=== PATIENT | female | born 1980 | race Caucasian/White ===

== ENCOUNTER 2022-10-21 14:54 | Outpatient (OUT) | payer OTHER, SELFPAY ==
--- NOTE | 2022-10-21 15:06 | XR_ITS ---
The [address] [address] Patient Name: TAMY BARCLAY MRN: [id number] date: 1980 Sex: F Assigned Patient Location: LAB Current Patient Location: Accession/Order Number: [id number] Exam Date: 10/21/2022 15:08 Report Date: 10/22/2022 04:19 At the request of: FRANCIA RODRIGUEZ Procedure: XR abdomen 1V EXAMINATION: XR abdomen 1V HISTORY: Kidney stones N20.0 COMPARISON: XR abdomen with PA chest 03/24/2022 FINDINGS: KIDNEY/URETER - RIGHT: No visible renal or ureteral calcifications. KIDNEY/URETER - LEFT: No visible renal or ureteral calcifications. PELVIS: Stable left pelvic calcifications consistent with phleboliths. BOWEL: No abnormal dilation or deviation. BONES: No acute abnormality. OTHER: Negative. No abnormal gaseous collections. XR/XR abdomen 1V IMPRESSION: 1. No appreciable urinary tract calculi. Electronically authenticated by: ABEL COLES Date: 10/22/2022 04:19
[2022-10-21 15:44] LABS: Bilirubin Urine NEGATIVE (NEGATIVE); Blood Urine NEGATIVE (NEGATIVE); Clarity Urine CLEAR (CLEAR); Color Urine YELLOW (YELLOW); Glucose Urine UA NEGATIVE (NEGATIVE); Ketones Urine NEGATIVE (NEGATIVE); Leukocyte Esterase Urine NEGATIVE (NEGATIVE); Nitrite Urine NEGATIVE (NEGATIVE); Protein Urine NEGATIVE (NEG/TRACE); Specific Gravity Urine 1.025 (1.005-1.025); Urobilinogen Urine 0.2 EU/dL (0.2-1.0); pH Urine 5.5 (5.0-9.0)
== END 2022-10-21 14:55 | disposition home or self-care (01) ==
LOC: LAB 14:58
PROVIDERS: PCP Family Medicine; Visit Provider Family Medicine
DX: N30.00 Acute cystitis without hematuria (principal); N20.0 Calculus of kidney
CPT/HCPCS: 74018; 81003; 87086

== ENCOUNTER 2023-02-13 14:39 | Outpatient (OUT) | payer OTHER, SELFPAY ==
--- NOTE | 2023-02-13 14:43 | US_ITS ---
The [place] [id number] Patient Name: TAMY BARCLAY MRN: [id number] date: 1980 Sex: F Assigned Patient Location: [facility] Current Patient Location: Accession/Order Number: [id number] Exam Date: 02/13/2023 15:15 Report Date: 02/15/2023 11:22 At the request of: FRANCIA RODRIGUEZ Procedure: US venous doppler LE RT EXAMINATION: US venous doppler LE RT HISTORY: Phlebitis I80.9 COMPARISON: No relevant comparison available. FINDINGS: REGION: Right lower extremity THROMBI: None. COMPRESSIBILITY: Normal compressibility. FLOW: Normal waveform and antegrade flow between 5 and 20 cm/s. OTHER: None. US/US venous doppler LE RT IMPRESSION: 1. No deep vein thrombus within the right lower extremity. Electronically authenticated by: ABEL COLES Date: 02/15/2023 11:22
== END 2023-02-13 14:40 | disposition home or self-care (01) ==
LOC: RAD 14:39
PROVIDERS: PCP Family Medicine; Visit Provider Family Medicine
DX: I80.9 Phlebitis and thrombophlebitis of unspecified site (principal)
CPT/HCPCS: 93971

== ENCOUNTER 2023-09-04 09:54 | Outpatient (OUT) | payer OTHER, SELFPAY ==
--- OUTSIDE RECORDS SUMMARY | 2023-09-04 10:12 | XMS_ITS | CCD ---
Author Organization [facility] Care Team Providers Care Television Installer Helper Name Role Phone STEPANIC, ARIES C Unavailable Unavailable STEPANIC, ARIES C Unavailable Unavailable HOY, FRANCIA Unavailable Unavailable Bunny Briggs Unavailable Unavailable STEPANIC, ARIES C Unavailable Unavailable STEPANIC, ARIES C Unavailable Unavailable HOY, FRANCIA Unavailable Unavailable HOY ., DR FELDMAN Admitting Unavailable HOY ., DR FELDMAN Attending Unavailable HOY ., DR FELDMAN Primary Care Unavailable HOY ., DR FELDMAN Consulting Unavailable HOY ., DR FELDMAN Admitting Unavailable HOY ., DR FELDMAN Attending Unavailable HOY ., DR FELDMAN Primary Care Unavailable HOY ., DR FELDMAN Consulting Unavailable HOY ., DR FELDMAN Admitting Unavailable HOY ., DR FELDMAN Attending Unavailable HOY ., DR FELDMAN Primary Care Unavailable HOY ., DR FELDMAN Consulting Unavailable RIDGEWAY, DR MAURICIO Fraser Consulting Unavailable Unavailable Primary Care Provider ANNA Crain Attending Unavailable Allergies Allergy Classification Reported Allergen(s) Allergy Type Date of Onset Reaction(s) Facility (1 source) acetaminophen / oxyCODONE; Translations: [Percocet 5/325] Drug Allergy [facility] Repository (2 sources) HYDROmorphone; Translations: [Dilaudid] Drug Allergy [facility]ository (1 source) egg extract Drug Allergy 02-09-2006 [facility] Repository (1 source) HYDROmorphone Drug Allergy 10-27-2022 [facility] Medications Current Medications Medication Drug Class(es) Dates Sig (Normalized) Sig (Original) 24 hr metoprolol succinate 50 mg extended release oral tablet (1 source) beta-Adrenergic Carlos take 1 tablet by mouth once daily metoprolol succinate (TOPROL XL) 50 MG extended release tablet Take 1 tablet by mouth daily 0 Active Rimegepant Sulfate (NURTEC PO) (1 source) Rimegepant Sulfa te (NURTEC PO) Take by mouth 0 Active Completed/Discontinued Medications Medication Drug Class(es) Dates Sig (Normalized) Sig (Original) iopamidol (ISOVUE-370) 76 % injection 75 mL (1 source) Start: 10-27-2022 End: 10-27-2022 iopamidol (ISOVUE-370) 76 % injection 75 mL 1 ml ketorolac tromethamine 15 mg/ml cartridge (1 source) Nonsteroidal Anti-inflammatory Drug, Cyclooxygenase Inhibitor Start: 10-27-2022 End: 10-27-2022 ketorolac (TORADOL) injection 15 mg 2 ml ondansetron 2 mg/ml injection (1 source) Serotonin-3 Receptor Antagonist Start: 10-27-2022 End: 10-27-2022 ondansetron (ZOFRAN) injection 4 mg 50 ml sodium chloride 9 mg/ml injection (1 source) Start: 10-27-2022 End: 10-27-2022 sodium chloride 0.9 % bolus 1,000 mL Problems Active Problems Problem Classification Problem Date Documented Date Episodic/Chronic Cardiac dysrhythmias (4 sources) Palpitations; Translations: [PALPITATIONS] Onset: 04-21-2022 Episodic Headache; including migraine (1 source) Migraine without aura, not intractable, without status migrainosus; Translations: [MIGRAINE W/O AURA NOT INTRCT W/O SE] Onset: 04-28-2022 Chronic Nausea and vomiting (4 sources) Nausea with vomiting, unspecified; Translations: [NAUSEA WITH VOMITING UNSPECIFIED] Onset: 03-24-2022 Episodic Noninfectious gastroenteritis (4 sources) Noninfective gastroenteritis and colitis, unspecified; Translations: [NONINFECTIVE GE AND COLITIS UNS] Onset: 03-19-2022 Episodic Past or Other Problems Problem Classification Problem Date Documented Da te Episodic/Chronic Abdominal pain (3 sources) Unspecified abdominal pain; Translations: [Left flank pain] Onset: 03-28-2022 10-27-2022 Episodic Results Test Name Value Interpretation Reference Range Facility CBC with Diffon 08-05-2023 Abs. Basophil <0.03 Normal 0.00-0.20 [facility] Comment on above: Performed By: #### T , CDP #### [facility] [address] [place], [place] [phone] Tow Car Driver: Mauricio rIby MD #### LIPR, FT3, INSU, T4, FE, GLYHGB #### [address] [phone] Tow Car Driver: Casa Medrano MD Abs.Imm.Granulocy te 0.05 k/uL Normal 0.00-0.30 [facility] Comment on above: Performed By: #### T SH, CDP #### [address] [place] [phone] Tow Car Driver: Mauricio Irby MD #### LIPR, FT3, INSU, T4, FE, GLYHGB #### [place] [address] Tow Car Driver: Casa Medrano MD Abs.Neutrophil (Seg) 7.71 k/uL Normal 1.50-8.10 [facility] Comment on above: Performed By: #### T SH, CDP #### [address] [place] [phone] Tow Car Driver: Mauricio Irby MD #### LIPR, FT3, INSU, T4, FE, GLYHGB #### [place] [phone] Tow Car Driver: Casa Medrano MD Basophils/100 WBC (Bld) 0 % Normal 0-2 [facility] Comment on above: Performed By: #### T SH, CDP #### [address] [place] [phone] Tow Car Driver: Mauricio Irby MD #### LIPR, FT3, INSU, T4, FE, GLYHGB #### [address] [phone] Tow Car Driver: Casa Medrano MD Eosinophils (Bld) [#/Vol] 0.10 10*3/uL Normal 0.00-0.44 [facility] Comment on above: Performed By: #### T SH, CDP #### [address] [place] [address] Tow Car Driver: Mauricio Irby MD #### LIPR, FT3, INSU, T4, FE, GLYHGB #### [address] [phone] Tow Car Driver: Casa Medrano MD Eosinophils/100 WBC (Bld) 1 % Normal 1-4 [facility] Comment on above: Performed By: #### T SH, CDP #### [address] [place] [address] Tow Car Driver: Mauricio Irby MD #### LIPR, FT3, INSU, T4, FE, GLYHGB #### [address] [phone] Tow Car Driver: Casa Medrano MD Erythrocyte distribution width (RBC) [Ratio] 12.5 % Normal 11.8-14.4 [facility] Comment on above: Performed By: #### T SH, CDP #### [address] [place] [address] Tow Car Driver: Mauricio Irby MD #### LIPR, FT3, INSU, T4, FE, GLYHGB #### [address] [phone] Tow Car Driver: Casa Medrano MD Hematocrit (Bld) [Volume fraction] 45.1 % Normal 36.3-47.1 [facility] Comment on above: Performed By: #### T SH, CDP #### [address] [place] [address] Tow Car Driver: Mauricio Irby MD #### LIPR, FT3, INSU, T4, FE, GLYHGB #### [address] [phone] Tow Car Driver: Casa Medrano MD Hemoglobin (Bld) [Mass/Vol] 15.2 g/dL High 11.9-15.1 [facility] Comment on above: Performed By: #### T SH, CDP #### [facility] [address] [place] [address] Dr[place] [phone] Tow Car Driver: Mauricio Irby MD #### LIPR, FT3, INSU, T4, FE, GLYHGB #### [address] [address] Tow Car Driver: Casa Medrano MD Immature granulocytes/100 WBC (Bld) 1 % High 0 [facility] Comment on above: Performed By: #### T SH, CDP #### [address] [place] [phone] Tow Car Driver: Mauricio Irby MD #### LIPR, FT3, INSU, T4, FE, GLYHGB #### [place] [address] Tow Car Driver: Casa Medrano MD Lymphocytes (Bld) [#/Vol] 2.55 10*3/uL Normal 1.10-3.70 [facility] Comment on above: Performed By: #### T SH, CDP #### [facility] [address] [place] [address] Dr. [place] [phone] Tow Car Driver: Mauricio Irby MD #### LIPR, FT3, INSU, T4, FE, GLYHGB #### [address] [phone] Tow Car Driver: Casa Medrano MD Lymphocytes/100 WBC (Bld) 23 % Low 24-43 [facility] Comment on above: Performed By: #### T SH, CDP #### [facility] [address] [place] [address] Dr[place] [phone] Tow Car Driver: Mauricio Irby MD #### LIPR, FT3, INSU, T4, FE, GLYHGB #### [place] [address] [place], [place] [phone] Tow Car Driver: Casa Medrano MD MCH (RBC) [Entitic mass] 31.6 pg Normal 25.2-33.5 [facility] Comment on above: Performed By: #### T SH, CDP #### [address] [place] [phone] Tow Car Driver: Mauricio Irby MD #### LIPR, FT3, INSU, T4, FE, GLYHGB #### [address] [phone] Tow Car Driver: Casa Medrano MD MCHC (RBC) [Mass/Vol] 33.7 g/dL Normal 28.4-34.8 [facility] Comment on above: Performed By: #### T SH, CDP #### [address] [place] [phone] Tow Car Driver: Mauricio Irby MD #### LIPR, FT3, INSU, T4, FE, GLYHGB #### [place] [address] Tow Car Driver: Casa Medrano MD MCV (RBC) [Entitic vol] 93.8 fL Normal 82.6-102.9 [facility] Comment on above: Performed By: #### T SH, CDP #### [address] [place] [phone] Tow Car Driver: Mauricio Irby MD #### LIPR, FT3, INSU, T4, FE, GLYHGB #### [place] [phone] Tow Car Driver: Casa Medrano MD Monocytes (Bld) [#/Vol] 0.60 10*3/uL Normal 0.10-1.20 [facility] Comment on above: Performed By: #### T SH, CDP #### [facility] [address] [place], [place] [phone] Tow Car Driver: Mauricio Irby MD #### LIPR, FT3, INSU, T4, FE, GLYHGB #### [address] [phone] Tow Car Driver: Casa Medrano MD Monocytes/100 WBC (Bld) 5 % Normal 3-12 [facility] Comment on above: Performed By: #### T SH, CDP #### [facility] [address] [place] [address] Tow Car Driver: Mauricio Irby MD #### LIPR, FT3, INSU, T4, FE, GLYHGB #### [address] [phone] Tow Car Driver: Casa Medrano MD Neutrophil (Seg) 70 % High 36-65 [facility] Comment on above: Performed By: #### T SH, CDP #### [facility] [address] [place] [address] [place] [address] Tow Car Driver: Mauricio Irby MD #### LIPR, FT3, INSU, T4, FE, GLYHGB #### [address] [address] Tow Car Driver: Casa Medrano MD NRBC Automated 0.0 per 100 WBC Normal 0.0 [facility] Comment on above: Performed By: #### T SH, CDP #### [facility] [address] [place] [address] Tow Car Driver: Mauricio Irby MD #### LIPR, FT3, INSU, T4, FE, GLYHGB #### [address] [phone] Tow Car Driver: Casa Medrano MD Platelet mean volume (Bld) [Entitic vol] 9.2 fL Normal 8.1-13.5 [facility] Comment on above: Performed By: #### T SH, CDP #### [address] [place], [place] [phone] Tow Car Driver: Mauricio Irby MD #### LIPR, FT3, INSU, T4, FE, GLYHGB #### [place] [address] [place] [address] Tow Car Driver: Casa Medrano MD Platelets (Bld) [#/Vol] 297 10*3/uL Normal 138-453 [facility] Comment on above: Performed By: #### T SH, CDP #### [address] [place], [place] [phone] Tow Car Driver: Mauricio Irby MD #### LIPR, FT3, INSU, T4, FE, GLYHGB #### [address] [address] Tow Car Driver: Casa Medrano MD RBC (Bld) [#/Vol] 4.81 10*6/uL Normal 3.95-5.11 [facility] Comment on above: Performed By: #### T SH, CDP #### [address] [place], [place] [phone] Tow Car Driver: Mauricio Irby MD #### LIPR, FT3, INSU, T4, FE, GLYHGB #### [address] [address] Tow Car Driver: Casa Medrano MD WBC (Bld) [#/Vol] 11.0 10*3/uL Normal 3.5-11.3 [facility] Comment on above: Performed By: #### T SH, CDP #### [address] [place], [place] [phone] Tow Car Driver: Mauricio Irby MD #### LIPR, FT3, INSU, T4, FE, GLYHGB #### [address] [phone] Tow Car Driver: Casa Medrano MD Hemoglobin A1Con 08-05-2023 Glucose [Mass/Vol] 100 mg/dL Normal [facility] Comment on above: Result Comment: The ADA and AACC recommend providing the estimated average glucose result to permit better patient understanding of their HBA1c result. Performed By: #### C JANIE RAMIREZ, CP #### [facility] [address] [place] [address] Dr. [place], [place] [phone] Tow Car Driver: Mauricio Irby MD HbA1c (Bld) [Mass fraction] 5.1 % Normal 4.0-6.0 [facility] Comment on above: Performed By: #### C JANIE RAMIREZ, CP #### [address] [place], [place] [phone] Tow Car Driver: Mauricio Irby MD Insulinon 08-05-2023 Insulin 19.2 mU/L Normal [facility] Comment on above: Performed By: #### T SH, CDP #### [address] [place], [place] 3603483 Tow Car Driver: Mauricio Irby MD #### LIPR, FT3, INSU, T4, FE, GLYHGB #### [facility] [place], [place] 0803808 Tow Car Driver: Casa Medrano MD Reference Range Normal [facility] Comment on above: Result Comment: Fast in.6-24.9 30 min: 20-112 60 min: 29-88 90 min: 26-84 120 min: 22-79 Performed By: #### T SH, CDP #### [facility] [address] [place] [address] [place] [address] Tow Car Driver: Mauricio Irby MD #### LIPR, FT3, INSU, T4, FE, GLYHGB #### [place] [address]64 [place], [place] [phone] Tow Car Driver: Casa Medrano MD Ironon 08-05-2023 Iron [Mass/Vol] 68 ug/dL Normal 37-145 [facility] Comment on above: Performed By: #### C DP, LIP, CP #### [address] [place] [address] Tow Car Driver: Mauricio Irby MD Lipid Profileon 08-05-2023 Cholesterol [Mass/Vol] 171 mg/dL Normal 0-199 [facility] Comment on above: Result Comment: Cholesterol Guidelines: <200 Desirable 200-240 Borderline >240 Undesirable Performed By: #### T SH, CDP #### [address] [place] [address] Tow Car Driver: Mauricio Irby MD #### LIPR, FT3, INSU, T4, FE, GLYHGB #### [address] [phone] Tow Car Driver: Casa Medrano MD Cholesterol in HDL [Mass/Vol] 52 mg/dL Normal >40 [facility] Comment on above: Result Comment: HDL Guidelines: <40 Undesirable 40-59 Borderline >59 Desirable Performed By: #### T SH, CDP #### [address] [place] [address] Tow Car Driver: Mauricio Irby MD #### LIPR, FT3, INSU, T4, FE, GLYHGB #### [address] [phone] Tow Car Driver: Casa Medrano MD Cholesterol in LDL [Mass/Vol] 100 mg/dL Normal 0-100 [facility] Comment on above: Result Comment: LDL Guidelines: <100 Desirable 100-129 Near to/above Desirable 130-159 Borderline >159 Undesirable Direct (measured) LDL and calculated LDL are not interchangeable tests. Performed By: #### T SH, CDP #### [address] [place] [address] Tow Car Driver: Mauricio Irby MD #### LIPR, FT3, INSU, T4, FE, GLYHGB #### [place] [address] [place] [address] Tow Car Driver: Casa Medrano MD Cholesterol in VLDL [Mass/Vol] 19 mg/dL Normal [facility] Comment on above: Performed By: #### T SH, CDP #### [address] [place], [place] [phone] Tow Car Driver: Mauricio Irby MD #### LIPR, FT3, INSU, T4, FE, GLYHGB #### [address] [address] Tow Car Driver: Casa Medrano MD Cholesterol.total /Cholesterol in HDL [Mass ratio] 3.0 {ratio} Normal [facility] Comment on above: Performed By: #### T DANIEL, CDP #### [address] [place] [address] Tow Car Driver: Mauricio Irby MD #### LIPR, FT3, INSU, T4, FE, GLYHGB #### [address] [phone] Tow Car Driver: aCsa Medrano MD Triglyceride [Mass/Vol] 93 mg/dL Normal <150 [facility] Comment on above: Result Comment: Triglyceride Guidelines: <150 Desirable 150-199 Borderline 200-499 High >499 Very high Based on AHA Guidelines for fasting triglyceride, November 2011. Performed By: #### T SH, CDP #### [address] [place], [place] [phone] Tow Car Driver: Mauricio Irby MD #### LIPR, FT3, INSU, T4, FE, GLYHGB #### [address] [address] Tow Car Driver: Casa Medrano MD T3, Freeon 08-05-2023 Free T3 [Mass/Vol] 2.90 pg/mL Normal 2.00-4.40 [facility] Comment on above: Performed By: #### C DP LIP, CP #### [address] [place] [address] Tow Car Driver: Mauricio Irby MD Thyroid Stim. Horm.on 2023 Thyroid Stim. Horm. 1.33 uIU/mL Normal 0.30-5.00 [facility] Comment on above: Performed By: #### T SH, CDP #### [address] [place] [address] Tow Car Driver: Mauricio Irby MD #### LIPR, FT3, INSU, T4, FE, GLYHGB #### [place] [address] [place], [place] [phone] Tow Car Driver: Casa Medrano MD Thyroxine T4on 08-05-2023 T4 [Mass/Vol] 9.9 ug/dL Normal 4.5-11.7 [facility] Comment on above: Performed By: #### T SH, CDP #### [address] [place] [address] Tow Car Driver: Mauricio Irby MD #### LIPR, FT3, INSU, T4, FE, GLYHGB #### [place] [address] [place], [place] [phone] Tow Car Driver: Casa Medrano MD Cult,Urineon 10-28-2022 Cult,Urine Specimen Description .CLEAN CATCH URINE Culture NO SIGNIFICANT GROWTH Report Status FINAL 10/28/2022 Normal [facility] Comment on above: Performed By: #### C JANIE RAMIREZ, CP #### [address] [place] [address] Tow Car Driver: Mauricio Irby MD CBC with Auto Differentialon 10-27-2022 Basophils (Bld) [#/Vol] 0.03 10*3/uL [facility] Basophils/100 WBC (Bld) 0 % 0 - 2 % [facility] Eosinophils (Bld) [#/Vol] 0.07 10*3/uL [facility] Eosinophils/100 WBC (Bld) 1 % 1 - 4 % [facility] Erythrocyte distribution width (RBC) [Ratio] 12.6 % 11.8 - 14.4 % [facility] Hematocrit (Bld) [Volume fraction] 43.7 % 36.3 - 47.1 % [facility] Hemoglobin (Bld) [Mass/Vol] 14.3 g/dL 11.9 - 15.1 g/dL [facility] Immature granulocytes (Bld) [#/Vol] 0.04 10*3/uL [facility] Immature granulocytes/100 WBC (Bld) 0 % 0 [facility] Interpretation and review of laboratory results Abnormal [facility] Lymphocytes/100 WBC (Bld) 27 % 24 - 43 % [facility] Lymphocytes/100 WBC (Bld) 2.50 % [facility] MCH (RBC) [Entitic mass] 31.2 pg 25.2 - 33.5 pg [facility] MCHC (RBC) [Mass/Vol] 32.7 g/dL 28.4 - 34.8 g/dL [facility] MCV (RBC) [Entitic vol] 95.4 fL 82.6 - 102.9 fL [facility] Monocytes/100 WBC (Bld) 5 % 3 - 12 % [facility] Monocytes/100 WBC (Bld) 0.44 % [facility] Neutrophils/100 WBC (Bld) 67 % High 36 - 65 % [facility] Nucleated RBC/100 WBC (Bld) [Ratio] 0.0 % 0.0 per 100 WBC [facility] Platelet mean volume (Bld) [Entitic vol] 8.9 fL 8.1 - 13.5 fL [facility] Platelets (Bld) [#/Vol] 264 10*3/uL [facility] RBC (Bld) [#/Vol] 4.58 10*6/uL 3.95 - 5.1 1 m/uL [facility] Segmented neutrophils/100 WBC (Bld) 6.32 % [facility] WBC other (Bld) [#/Vol] 9.4 [facility] CBC with Diffon 10-27-2022 Abs. Basophil 0.03 k/uL Normal 0.00-0.20 [facility] Comment on above: Performed By: #### C DP, LIP, CP #### [facility] [address] [place] [address] [place] [address] Tow Car Driver: Mauricio Irby MD Abs.Imm.Granulocy te 0.04 k/uL Normal 0.00-0.30 [facility] Comment on above: Performed By: #### C DP, LIP, CP #### [address] [place] [address] Tow Car Driver: Mauricio Irby MD Abs.Neutrophil (Seg) 6.32 k/uL Normal 1.50-8.10 [facility] Comment on above: Performed By: #### C DP, LIP, CP #### [address] [place], [place] [address] Tow Car Driver: Mauricio Irby MD Basophils/100 WBC (Bld) 0 % Normal 0-2 [facility] Comment on above: Performed By: #### C DP, LIP, CP #### [address] [place] [address] Tow Car Driver: Mauricio Irby MD Eosinophils (Bld) [#/Vol] 0.07 10*3/uL Normal 0.00-0.44 [facility] Comment on above: Performed By: #### C DP, LIP, CP #### [address] [place], [facility]83 Tow Car Driver: Mauricio Irby MD Eosinophils/100 WBC (Bld) 1 % Normal 1-4 [facility] Comment on above: Performed By: #### C DP, LIP, CP #### [address] [place] [phone] Tow Car Driver: Mauricio Irby MD Erythrocyte distribution width (RBC) [Ratio] 12.6 % Normal 11.8-14.4 [facility] Comment on above: Performed By: #### C DP LIP, CP #### [facility] [address] [place], [place] [phone] Tow Car Driver: Mauricio Irby MD Hematocrit (Bld) [Volume fraction] 43.7 % Normal 36.3-47.1 [facility] Comment on above: Performed By: #### C DP, LIP, CP #### [facility] [address] [place] [address] Tow Car Driver: Mauricio Irby MD Hemoglobin (Bld) [Mass/Vol] 14.3 g/dL Normal 11.9-15.1 [facility] Comment on above: Performed By: #### C JAMES LIP, CP #### [address] [place], [place] [address] Tow Car Driver: Mauricio Irby MD Immature granulocytes/100 WBC (Bld) 0 % Normal 0 [facility] Comment on above: Performed By: #### C JAMES LIP, CP #### [address] [place] [address] Tow Car Driver: Mauricio Irby MD Lymphocytes (Bld) [#/Vol] 2.50 10*3/uL Normal 1.10-3.70 [facility] Comment on above: Performed By: #### C DP LIP, CP #### [facility] [address] [place] [address] Tow Car Driver: Mauricio Irby MD Lymphocytes/100 WBC (Bld) 27 % Normal 24-43 [facility] Comment on above: Performed By: #### C DP, LIP, CP #### [facility] [address] [place], [place] [phone] Tow Car Driver: Mauricio Irby MD MCH (RBC) [Entitic mass] 31.2 pg Normal 25.2-33.5 [facility] Comment on above: Performed By: #### C JANIE RAMIREZ, CP #### [address] [place], [place] [phone] Tow Car Driver: Mauricio Irby MD MCHC (RBC) [Mass/Vol] 32.7 g/dL Normal 28.4-34.8 [facility] Comment on above: Performed By: #### C JANIE RAMIREZ, CP #### [address] [place] [address] Tow Car Driver: Mauricio Irby MD MCV (RBC) [Entitic vol] 95.4 fL Normal 82.6-102.9 [facility] Comment on above: Performed By: #### C JANIE RAMIREZ, CP #### [address] [place], [facility]83 Tow Car Driver: Mauricio Irby MD Monocytes (Bld) [#/Vol] 0.44 10*3/uL Normal 0.10-1.20 [facility] Comment on above: Performed By: #### C JANIE RAMIREZ, CP #### [address] [place], [place] [phone] Tow Car Driver: Mauricio Irby MD Monocytes/100 WBC (Bld) 5 % Normal 3-12 [facility] Comment on above: Performed By: #### C JANIE RAMIREZ, CP #### [address] [place], [place] [phone] Tow Car Driver: Mauricio Irby MD Neutrophil (Seg) 67 % High 36-65 [facility] Comment on above: Performed By: #### C JANIE RAMIREZ, CP #### [address] [place] [address] Tow Car Driver: Mauricio Irby MD NRBC Automated 0.0 per 100 WBC Normal 0.0 [facility] Comment on above: Performed By: #### C JAMES LIP, CP #### [address] [place], [facility]83 Tow Car Driver: Mauricio Irby MD Platelet mean volume (Bld) [Entitic vol] 8.9 fL Normal 8.1-13.5 [facility] Comment on above: Performed By: #### C JAMES LIP, CP #### [address] [place], [facility]83 Tow Car Driver: Mauricio Irby MD Platelets (Bld) [#/Vol] 264 10*3/uL Normal 138-453 [facility] Comment on above: Performed By: #### C JANIE RAMIREZ, CP #### [address] [place], [place] [phone] Tow Car Driver: Mauricio Irby MD RBC (Bld) [#/Vol] 4.58 10*6/uL Normal 3.95-5.11 [facility] Comment on above: Performed By: #### C JANIE RAMIREZ, CP #### [address] [place], [facility]83 Tow Car Driver: Mauricio Irby MD WBC (Bld) [#/Vol] 9.4 10*3/uL Normal 3.5-11.3 [facility] Comment on above: Performed By: #### C JAMES LIP, CP #### [address] [place], [facility]83 Tow Car Driver: Mauricio Irby MD CT ABDOMEN PELVIS W IV CONTR Rylan 10-27-2022 CT ABDOMEN PELVIS W IV CONTRAST EXAMINATION: CT OF THE ABDOMEN AND PELVIS WITH CONTRAST 10/27/2022 5:49 pm TECHNIQUE: CT of the abdomen and pelvis was performed with the administration of intravenous contrast. Multiplanar reformatted images are provided for review. Automated exposure control, iterative reconstruction, and/or weight based adjustment of the mA/kV was utilized to reduce the radiation dose to as low as reasonably achievable. COMPARISON: None. HISTORY: ORDERING SYSTEM PROVIDED HISTORY: Left flank pain TECHNOLOGIST PROVIDED HISTORY: Left flank pain Decision Support Exception - unselect if not a suspected or confirmed emergency medical condition->Emergency Medical Condition (MA) FINDINGS: Lower Chest: No acute findings. Organs: The liver, pancreas, spleen, kidneys, and adrenals reveal no acute findings. No inflammatory change identified in the gallbladder fossa. GI/Bowel: There is no bowel dilatation or wall thickening identified. Pelvis: No acute findings. Peritoneum/Retroperitoneum: No free air or free fluid. The aorta is normal in caliber. The visceral branches are patent. No lymphadenopathy. Bones/Soft Tissues: No abnormality identified. *Unless otherwise specified, incidental findings do not require dedicated imaging follow-up. IMPRESSION: No acute abnormality identified. Interpreted by: Ronni Vaughn MD Signed by: Ronni Vaughn MD 10/27/22 Final result Normal [facility] CT ABDOMEN PELVIS W IV CONTR AST Additional Contrast? Noneon 10-27-2022 No acute abnormality identified. [facility] EXAMINATION: CT OF THE ABDOMEN AND PELVIS WITH CONTRAST 10/27/2022 5:49 pm TECHNIQUE: CT of the abdomen and pelvis was performed with the administration of intravenous contrast. Multiplanar reformatted images are provided for review. Automated exposure control, iterative reconstruction, and/or weight based adjustment of the mA/kV was utilized to reduce the radiation dose to as low as reasonably achievable. COMPARISON: None. HISTORY: ORDERING SYSTEM PROVIDED HISTORY: Left flank pain TECHNOLOGIST PROVIDED HISTORY: Left flank pain Decision Support Exception - unselect if not a suspected or confirmed emergency medical condition->Emergency Medical Condition (MA) FINDINGS: Lower Chest: No acute findings. Organs: The liver, pancreas, spleen, kidneys, and adrenals reveal no acute findings. No inflammatory change identified in the gallbladder fossa. GI/Bowel: There is no bowel dilatation or wall thickening identified. Pelvis: No acute findings. Peritoneum/Retroperitoneum: No free air or free fluid. The aorta is normal in caliber. The visceral branches are patent. No lymphadenopathy. Bones/Soft Tissues: No abnormality identified. *Unless otherwise specified, incidental findings do not require dedicated imaging follow-up. [facility] Ronni Vaughn MD - 10/27/2022 EXAMINATION: CT OF THE ABDOMEN AND PELVIS WITH CONTRAST 10/27/2022 5:49 pm TECHNIQUE: CT of the abdomen and pelvis was performed with the administration of intravenous contrast. Multiplanar reformatted images are provided for review. Automated exposure control, iterative reconstruction, and/or weight based adjustment of the mA/kV was utilized to reduce the radiation dose to as low as reasonably achievable. COMPARISON: None. HISTORY: ORDERING SYSTEM PROVIDED HISTORY: Left flank pain TECHNOLOGIST PROVIDED HISTORY: Left flank pain Decision Support Exception - unselect if not a suspected or confirmed emergency medical condition->Emergency Medical Condition (MA) FINDINGS: Lower Chest: No acute findings. Organs: The liver, pancreas, spleen, kidneys, and adrenals reveal no acute findings. No inflammatory change identified in the gallbladder fossa. GI/Bowel: There is no bowel dilatation or wall thickening identified. Pelvis: No acute findings. Peritoneum/Retroperitoneum: No free air or free fluid. The aorta is normal in caliber. The visceral branches are patent. No lymphadenopathy. Bones/Soft Tissues: No abnormality identified. *Unless otherwise specified, incidental findings do not require dedicated imaging follow-up. IMPRESSION: No acute abnormality identified. [facility] Radiology Study observation (narrative) [facility] CT ABDOMEN PELVIS W IV CONTR AST Additional Contrast? NoneOrdered By: Ronni Vaughn on 10-27-2022 [facility] Work Phone: Comp Metabolic Profon 2022 Albumin [Mass/Vol] 4.0 g/dL Normal 3.5-5.2 [facility] Comment on above: Performed By: #### C DP, LIP, CP #### [address] [place] [address] Tow Car Driver: Mauricio Irby MD Albumin/Glob Ratio 1.1 Normal 1.0-2.5 [facility] Comment on above: Performed By: #### C DP LIP, CP #### [address] [place] [address] Tow Car Driver: Mauricio Irby MD Alkaline Phos 82 U/L Normal 35-104 [facility] Comment on above: Performed By: #### C DP, LIP, CP #### [address] [place] [phone] Tow Car Driver: Mauricio Irby MD ALT [Catalytic activity/Vol] 11 U/L Normal 5-33 [facility] Comment on above: Performed By: #### C DP, LIP, CP #### [facility] [address] [place], [place] [phone] Tow Car Driver: Mauricio Irby MD Anion gap [Moles/Vol] 8 mmol/L Low 9-17 [facility] Comment on above: Performed By: #### C DP, LIP, CP #### [facility] [address] [place], [place] [phone] Tow Car Driver: Mauricio Ibry MD AST [Catalytic activity/Vol] 12 U/L Normal <32 [facility] Comment on above: Performed By: #### C DP LIP, CP #### [facility] [address] [place], [place] [phone] Tow Car Driver: Mauricio Irby MD Bilirubin [Mass/Vol] 0.2 mg/dL Low 0.3-1.2 [facility] Comment on above: Performed By: #### C JAMES LIP, CP #### [facility] [address] [place] [address] Dr. [place], [place] [phone] Tow Car Driver: Mauricio Irby MD BUN/CRE Ratio 11 Normal 9-20 [facility] Comment on above: Performed By: #### C DP LIP, CP #### [facility] [address] [place], [place] [phone] Tow Car Driver: Mauricio Irby MD Calcium [Mass/Vol] 9.2 mg/dL Normal 8.6-10.4 [facility] Comment on above: Performed By: #### C DP, LIP, CP #### [facility] [address] [place], [place] [phone] Tow Car Driver: Mauricio Irby MD Chloride [Moles/Vol] 102 mmol/L Normal 98-107 [facility] Comment on above: Performed By: #### C JANIE RAMIREZ, CP #### [facility] [address] [place] [address] Tow Car Driver: Mauricio Irby MD CO2 [Moles/Vol] 27 mmol/L Normal 20-31 [facility] Comment on above: Performed By: #### C JANIE RAMIREZ, CP #### [facility] [address] [place] [address] Tow Car Driver: Mauricio Irby MD Creatinine [Mass/Vol] 0.7 mg/dL Normal 0.5-0.9 [facility] Comment on above: Performed By: #### C JANIE RAMIREZ, CP #### [facility] [address] [place] [address] Tow Car Driver: Mauricio Irby MD GFR/1.73 sq M.predicted among non-blacks MDRD (S/P/Bld) [Vol rate/Area] mL/min/{1.73_m2} Normal >60 [facility] Comment on above: Result Comment: These results are not intended for use in patients <18 years of age. eGFR results are calculated without a race factor using the 2020 CKD-EPI equation. Careful clinical correlation is recommended, particularly when comparing to results calculated using previous equations. The CKD-EPI equation is less accurate in patients with extremes of muscle mass, extra-renal metabolism of creatine, excessive creatine ingestion, or following therapy that affects renal tubular secretion. Performed By: #### C JANIE RAMIREZ, CP #### [facility] [address] [place] [address] Tow Car Driver: Mauricio Irby MD Glucose [Mass/Vol] 134 mg/dL High 70-99 [facility] Comment on above: Performed By: #### C JANIE RAMIREZ, CP #### [facility] [address] [place] [address] Tow Car Driver: Mauricio Irby MD Potassium [Moles/Vol] 4.1 mmol/L Normal 3.7-5.3 [facility] Comment on above: Performed By: #### C DP LIP, CP #### [facility] [address] [place], [place] [phone] Tow Car Driver: Mauricio Irby MD Protein [Mass/Vol] 7.7 g/dL Normal 6.4-8.3 [facility] Comment on above: Performed By: #### C JAMES LIP, CP #### [facility] [address] [place], [place] [phone] Tow Car Driver: Mauricio Irby MD Sodium [Moles/Vol] 137 mmol/L Normal 135-144 [facility] Comment on above: Performed By: #### C JANIE RAMIREZ, CP #### [facility] [address] [place], [place] [phone] Tow Car Driver: Mauricio Irby MD Urea nitrogen [Mass/Vol] 8 mg/dL Normal 6-20 [facility] Comment on above: Performed By: #### C JAMES LIP, CP #### [facility] [address] [place] [address] Tow Car Driver: Mauricio Irby MD [facility] 10-27-2022 Albumin [Mass/Vol] 4.0 g/dL 3.5 - 5.2 g/dL [facility] Albumin/Globulin [Mass ratio] 1.1 {ratio} 1.0 - 2.5 [facility] ALP [Catalytic activity/Vol] 82 U/L 35 - 104 U/L [facility] ALT [Catalytic activity/Vol] 11 U/L 5 - 33 U/L [facility] Anion gap [Moles/Vol] 8 mmol/L Low 9 - 17 mmol/L [facility] AST [Catalytic activity/Vol] 12 U/L NINF - 32 U/L [facility] Bilirubin [Mass/Vol] 0.2 mg/dL Low 0.3 - 1.2 mg/dL [facility] Calcium [Mass/Vol] 9.2 mg/dL 8.6 - 10.4 mg/dL [facility] Chloride [Moles/Vol] 102 mmol/L 98 - 107 mmol/L [facility] CO2 [Moles/Vol] 27 mmol/L 20 - 31 mmol/L [facility] Creatinine [Mass/Vol] 0.7 mg/dL 0.5 - 0.9 mg/dL [facility] GFR/1.73 sq M.predicted MDRD (S/P/Bld) [Vol rate/Area] - PINF [facility] Comment on above: These results are not intended for use in patients <18 years of age. eGFR results are calculated without a race factor using the 2020 CKD-EPI equation. Careful clinical correlation is recommended, particularly when comparing to results calculated using previous equations. The CKD-EPI equation is less accurate in patients with extremes of muscle mass, extra-renal metabolism of creatine, excessive creatine ingestion, or following therapy that affects renal tubular secretion. Glucose [Mass/Vol] 134 mg/dL High 70 - 99 mg/dL [facility] Potassium [Moles/Vol] 4.1 mmol/L 3.7 - 5.3 mmol/L [facility] Protein [Mass/Vol] 7.7 g/dL 6.4 - 8.3 g/dL [facility] Sodium [Moles/Vol] 137 mmol/L 135 - 144 mmol/L [facility] Urea nitrogen [Mass/Vol] 8 mg/dL 6 - 20 mg/dL [facility] Urea nitrogen/Creatini ne [Mass ratio] 11 mg/mg 9 - 20 [facility] Lactic Acidon 10-27-2022 Lactate (BldV) [Moles/Vol] 1.6 mmol/L 0.5 - 2.2 mmol/L [facility] Lactate [Moles/Vol] 1.6 mmol/L Normal 0.5-2.2 [facility] Comment on above: Performed By: #### C JANIE RAMIREZ CP #### [facility] [address] [place] [address] Tow Car Driver: Mauricio Irby MD Lipaseon 09-18-2023 Lipase [Catalytic activity/Vol] 67 U/L High 13 - 60 U/L [facility] Lipase [Catalytic activity/Vol] 67 U/L High 13-60 [facility] Comment on above: Performed By: #### C DP, LIP, CP #### [facility] [address] [place] [address] Tow Car Driver: Mauricio Irby MD No Panel Informationon 10-27 Interpretation and review of laboratory results Abnormal [facility] Urinalysis w/ Microon 2022 Bacteria 1+ Abnormal NONE [facility] Comment on above: Performed By: #### U AMIC #### [facility] [address] [place], [place] [phone] Tow Car Driver: Mauricio Irby MD Bilirubin, SemiQt,Ur Negative Normal NEG [facility] Comment on above: Performed By: #### U AMIC #### [facility] [address] [place], [place] [phone] Tow Car Driver: Mauricio Ibry MD Blood, Urine Negative Normal NEG [facility] Comment on above: Performed By: #### U AMIC #### [facility] [address] [place], [place] [phone] Tow Car Driver: Mauricio Irby MD Clarity (U) Clear Normal CLEAR [facility] Comment on above: Performed By: #### U AMIC #### [facility] [address] [place], [place] [phone] Tow Car Driver: Mauricio Irby MD Color (U) Yellow Normal YEL [facility] Comment on above: Performed By: #### U AMIC #### [facility] [address] [place], [place] [phone] Tow Car Driver: Mauricio Irby MD Epithelial cells LM Ql (Urine sed) 10 TO 20 Normal 0-25 [facility] Comment on above: Performed By: #### U AMIC #### [facility] [address] [place], [place] [phone] Tow Car Driver: Mauricio Irby MD Glucose Ql (U) Negative Normal NEG [facility] Comment on above: Performed By: #### U AMIC #### [facility] [address] [place] [address] Dr. [place], [place] [phone] Tow Car Driver: Mauricio Irby MD Ketones Ql (U) Negative Normal NEG [facility] Comment on above: Performed By: #### U AMIC #### [facility] [address] [place] [address] Dr. [place], [place] [phone] Tow Car Driver: Mauricio Irby MD Leukocyte esterase Test strip Ql (U) Negative Normal NEG [facility] Comment on above: Performed By: #### U AMIC #### [facility] [address] [place] [address] Dr. [place], [place] [phone] Tow Car Driver: Mauricio Irby MD Nitrite,Ur Negative Normal NEG [facility] Comment on above: Performed By: #### U AMIC #### [facility] [address] [place] [address] [place] [address] Tow Car Driver: Mauricio Irby MD PH,Ur 6.0 Normal 5.0-9.0 [facility] Comment on above: Performed By: #### U AMIC #### [facility] [address] [place] [address] [place] [address] Tow Car Driver: Mauricio Irby MD Protein Ql (U) Negative Normal NEG [facility] Comment on above: Performed By: #### U AMIC #### [facility] [address] [place] [address] Dr. [place], [place] [phone] Tow Car Driver: Mauricio Irby MD Spec. [place],Ur 1.010 Normal 1.010-1.020 [facility] Comment on above: Performed By: #### U AMIC #### [facility] [address] [place] [address] Dr. [place], [place] [phone] Tow Car Driver: Mauricio Irby MD Urine RBC's 0 TO 2 Normal 0-2 [facility] Comment on above: Performed By: #### U AMIC #### [facility] [address] [place], [place] [phone] Tow Car Driver: Mauricio Irby MD Urine WBC's 0 TO 2 Normal 0-5 [facility] Comment on above: Performed By: #### U AMIC #### [facility] [address] [place], [place] [phone] Tow Car Driver: Mauricio Irby MD Urobilinogen,Ur Normal Normal 0.0-1.0 [facility] Comment on above: Performed By: #### U AMIC #### [facility] [address] [place] [address] [place], [place] [phone] Tow Car Driver: Mauricio Irby MD Urinalysis with Microscopico n 10-27-2022 Bacteria LM Ql (Urine sed) 1+ Abnormal None [facility] Bilirubin Ql (U) Negative NEGATIVE [facility] Clarity (U) Clear Clear [facility] Color (U) Yellow Yellow [facility] Epithelial cells LM.HPF (Urine sed) [#/Area] 10 TO 20 [facility] Glucose Test strip (U) [Mass/Vol] Negative NEGATIVE mg/dL [facility] Hemoglobin Auto test strip Ql (U) Negative NEGATIVE [facility] Interpretation and review of laboratory results Abnormal [facility] Ketones (U) [Mass/Vol] Negative NEGATIVE mg/dL [facility] Leukocyte esterase Test strip Ql (U) Negative NEGATIVE [facility] Nitrite Ql (U) Negative NEGATIVE [facility] pH (U) 6.0 [pH] 5.0 - 9.0 [facility] Protein (U) [Mass/Vol] Negative NEGATIVE mg/dL [facility] RBC LM.HPF (Urine sed) [#/Area] 0 TO 2 [facility] Specific gravity (U) [Rel density] 1.010 1.010 - 1.020 [facility] Urobilinogen Qn (U) Normal 0.0 - 1.0 EU/dL [facility] WBC LM.HPF (Urine sed) [#/Area] 0 TO 2 [facility] XR ABD FLAT UP_PA Joyce 03-25 XR ABD FLAT UP_PA CH EXAMINATION: XR ABD FLAT UP_PA CH HISTORY: Abdominal pain nausea, vomiting, diarrhea COMPARISON: No relevant comparison available. FINDINGS: LUNGS: No infiltrate, pneumothorax, or pleural effusion. MEDIASTINUM: No abnormal widening. BOWEL GAS PATTERN: Non-obstructed. FREE AIR: None. CALCIFICATIONS: None significant. BONES: No fracture or visible bone lesion. OTHER: Negative. IMPRESSION: Clear lungs Paucity of gas. Overall nonobstructive bowel gas pattern Electronically authenticated by: MAURICIO LYONS Date: 2022-03-25 08:01 Normal [facility] AMYLASEon 03-24-2022 Amylase [Catalytic activity/Vol] 36 U/L Normal 25-115 [facility] Comment on above: Performed By: #### C MP, DARION, LIPA #### [facility] [address] [place] [address] Dr. Melecio Chadwick CBC AUTO DIFFon 03-24-2022 BASO # 0.0 103/ul Normal 0.0-0.1 [facility] Comment on above: Performed By: #### C BC #### [facility] [address] [place] [address] Dr. Melecio Chadwick Basophils/100 WBC (Bld) 0.2 % Normal 0.2-2.0 [facility] Comment on above: Performed By: #### C BC #### [facility] [address] [place] [address] Dr. Melecio Chadwick EO # 0.1 103/ul Normal 0.0-0.7 [facility] Comment on above: Performed By: #### C BC #### [facility] [address] [place] [address] Dr. Melecio Chadwick Eosinophils/100 WBC (Bld) 1.1 % Normal 0.9-7.0 [facility] Comment on above: Performed By: #### C BC #### [facility] [address] [place] [address] Dr. Melecio Chadwick Erythrocyte distribution width (RBC) [Ratio] 12.3 % Normal 11.0-15.0 [facility] Comment on above: Performed By: #### C BC #### [facility] [address] [place] [address] Dr. Melecio Chadwick Hematocrit (Bld) [Volume fraction] 42.5 % Normal 36.0-48.0 [facility] Comment on above: Performed By: #### C BC #### [facility] [address] [place] [address] Dr. Melecio Chadwick Hemoglobin (Bld) [Mass/Vol] 14.3 g/dL Normal 12.0-16.0 [facility] Comment on above: Performed By: #### C BC #### [facility] [address] [place] [address] Dr. Melecio Chadwick IG # 0.03 10e3/ul Normal 0.00-0.03 [facility] Comment on above: Performed By: #### C BC #### [facility] [address] [place] [address] Dr. Melecio Chadwick IG % 0.3 % Normal 0.0-0.5 [facility] Comment on above: Performed By: #### C BC #### [facility] [address] [place] [address] Dr. Melecio Chadwick LYMPH # 3.1 103/ul Normal 1.2-3.8 [facility] Comment on above: Performed By: #### C BC #### [facility] [address] [place] [address] Dr. Melecio Chadwick Lymphocytes/100 WBC (Bld) 29.8 % Normal 20.5-60.0 [facility] Comment on above: Performed By: #### C BC #### [facility] [address] [place] [address] Dr. Melecio Chadwick MANUAL DIFF REQ NO Normal [facility] Comment on above: Performed By: #### C BC #### [facility] [address] [address] [address] Melecio Chadwick MCH (RBC) [Entitic mass] 31.0 pg Normal 26.7-34.0 [facility] Comment on above: Performed By: #### C BC #### [facility] [address] [place] [address] Dr. Melecio Chadwick MCHC (RBC) [Mass/Vol] 33.6 g/dL Normal 29.9-35.2 [facility] Comment on above: Performed By: #### C BC #### [facility] [address] [place] [address] Dr. Melecio Chadwick MCV (RBC) [Entitic vol] 92.2 fL Normal 81.0-99.0 [facility] Comment on above: Performed By: #### C BC #### [facility] [address] [place] [address] Dr. Melecio Chadwick MONO # 0.6 103/ul Normal 0.3-0.8 [facility] Comment on above: Performed By: #### C BC #### [facility] [address] [place] [address] Dr. Melecio Chadwick Monocytes/100 WBC (Bld) 5.8 % Normal 1.7-12.0 [facility] Comment on above: Performed By: #### C BC #### [facility] [address] [place] [address] Dr. Melecio Chadwick NEUT # 6.5 103/ul Normal 1.4-6.5 [facility] Comment on above: Performed By: #### C BC #### [facility] [address] [place] [address] Dr. Melecio Chadwick Neutrophils/100 WBC (Bld) 62.8 % Normal 43.0-75.0 [facility] Comment on above: Performed By: #### C BC #### [facility] [address] [place] [address] Dr. Melecio Chadwick Platelet mean volume (Bld) [Entitic vol] 9.0 fL Critically low 9.5-13.5 [facility] Comment on above: Performed By: #### C BC #### [facility] [address] [place] [address] Dr. Melecio Chadwick PLT 268 103/ul Normal 150-450 [facility] Comment on above: Performed By: #### C BC #### [facility] [address] [place] [address] Dr. Melecio Chadwick RBC 4.61 106/ul Normal 4.20-5.40 [facility] Comment on above: Performed By: #### C BC #### [facility] [address] [place] [address] Dr. Melecio Chadwick WBC 10.4 103/ul Normal 4.0-11.0 [facility] Comment on above: Performed By: #### C BC #### [facility] [address] [place] [address] Dr. Melecio Chadwick LIPASEon 03-24-2022 Lipase [Catalytic activity/Vol] 114.0 U/L Normal 73.0-393.0 [facility] Comment on above: Performed By: #### C MP DARION, LIPA #### [facility] [address] [place] [address] Dr. Melecio Chadwick PROF 14(COMP METB)on 023 Albumin [Mass/Vol] 3.5 g/dL Normal 3.4-5.0 [facility] Comment on above: Performed By: #### C MP, DARION, LIPA #### [facility] [address] [place] [address] Dr. Melecio Chadwick Albumin/Globulin [Mass ratio] 0.8 {ratio} Normal [facility] Comment on above: Performed By: #### C MP, DARION, LIPA #### [facility] [address] [place] [address] Dr. Melecio Chadwick ALP [Catalytic activity/Vol] 85 U/L Normal 46-116 [facility] Comment on above: Performed By: #### C MP, DARION, LIPA #### [facility] [address] [place] [address] Dr. Melecio Chadwick ALT [Catalytic activity/Vol] 21 U/L Normal 14-59 [facility] Comment on above: Performed By: #### C MP, DARION, LIPA #### [facility] [address] [place] [address] Dr. Melecio Chadwick Anion gap [Moles/Vol] 11.6 mmol/L Normal [facility] Comment on above: Performed By: #### C MP, DARION, LIPA #### [facility] [address] [place] [address] Dr. Melecio Chadwick AST [Catalytic activity/Vol] 15 U/L Normal 15-37 [facility] Comment on above: Performed By: #### C MP, DARION, LIPA #### [facility] [address] [place] [address] Dr. Melecio Chadwick Bilirubin [Mass/Vol] 0.3 mg/dL Normal 0.2-1.0 [facility] Comment on above: Performed By: #### C MP, DARION, LIPA #### [facility] [address] [place] [address] Dr. Melecio Chadwick Calcium [Mass/Vol] 8.8 mg/dL Normal 8.5-10.1 [facility] Comment on above: Performed By: #### C MP, DARION, LIPA #### [facility] [address] [place] [address] Dr. Melecio Chadwick Chloride [Moles/Vol] 102 mmol/L Normal 98-107 [facility] Comment on above: Performed By: #### C MP, DARION, LIPA #### [facility] [address] [place] [address] Dr. Melecio Chadwick CO2 [Moles/Vol] 28.5 mmol/L Normal 21.0-32.0 The [facility] Comment on above: Performed By: #### C MP, DARION, LIPA #### [facility] [address] [place] [address] Dr. Melecio Chadwick Creatinine [Mass/Vol] 0.76 mg/dL Normal 0.55-1.02 [facility] Comment on above: Performed By: #### C MP, DARION, LIPA #### [facility] [address] [place] [address] Dr. Melecio Chadwick EGFR-AF CITIZEN OF [place] >60 Normal >=60 [facility] Comment on above: Performed By: #### C DARION LOGAN, LIPA #### [facility] [address] [place] [address] Dr. Melecio Chadwick EGFR-NON AF CITIZEN OF [place] >60 Normal >=60 [facility] Comment on above: Performed By: #### C MP, DARION, LIPA #### [facility] [address] [place] [address] Dr. Melecio Chadwick Globulin (S) [Mass/Vol] 4.2 g/dL Normal [facility] Comment on above: Performed By: #### C DARION LOGAN, LIPA #### [facility] [address] [place] [address] Dr. Melecio Chadwick Glucose [Mass/Vol] 97 mg/dL Normal 74-106 [facility] Comment on above: Performed By: #### C DOREEN DARION, LIPA #### [facility] [address] [place] [address] Dr. Melecio Chadwick Potassium [Moles/Vol] 4.1 mmol/L Normal 3.5-5.1 [facility] Comment on above: Performed By: #### C DARION LOGAN, LIPA #### [facility] [address] [place] [address] Dr. Melecio Chadwick Protein [Mass/Vol] 7.7 g/dL Normal 6.4-8.2 [facility] Comment on above: Performed By: #### C DOREEN DARION, LIPA #### [facility] [address] [place] [address] Dr. Melecio Chadwick Sodium [Moles/Vol] 138 mmol/L Normal 136-145 [facility] Comment on above: Performed By: #### C DOREEN DARION, LIPA #### [facility] [address] [place] [address] Dr. Melecio Chadwick Urea nitrogen [Mass/Vol] 9.0 mg/dL Normal 7.0-18.0 [facility] Comment on above: Performed By: #### C DOREEN DARION, LIPA #### [facility] [address] [place] [address] Dr. Melecio Chadwick Urea nitrogen/Creatini ne [Mass ratio] 11.8 mg/mg Normal [facility] Comment on above: Performed By: #### C MP, DARION, LIPA #### [facility] [address] [place] [address] Dr. Melecio Chadwick AMYLASEon 03-19-2022 Amylase [Catalytic activity/Vol] 44 U/L Normal 25-115 [facility] Comment on above: Performed By: #### A MY, CMP, LIPA #### [facility] [address] [place] [address] Dr. Melecio Chadwick CBC AUTO DIFFon 03-19-2022 BASO # 0.0 103/ul Normal 0.0-0.1 [facility] Comment on above: Performed By: #### C BC #### [facility] [address] [place] [address] Dr. Melecio Chadwick Basophils/100 WBC (Bld) 0.2 % Normal 0.2-2.0 [facility] Comment on above: Performed By: #### C BC #### [facility] [address] [place] [address] Dr. Melecio Chadwick EO # 0.1 103/ul Normal 0.0-0.7 [facility] Comment on above: Performed By: #### C BC #### [facility] [address] [place] [address] Dr. Melecio Chadwick Eosinophils/100 WBC (Bld) 1.5 % Normal 0.9-7.0 [facility] Comment on above: Performed By: #### C BC #### [facility] [address] [place] [address] Dr. Melecio Chadwick Erythrocyte distribution width (RBC) [Ratio] 12.4 % Normal 11.0-15.0 [facility] Comment on above: Performed By: #### C BC #### [facility] [address] [place] [address] Dr. Melecio Chadwick Hematocrit (Bld) [Volume fraction] 41.8 % Normal 36.0-48.0 [facility] Comment on above: Performed By: #### C BC #### [facility] [address] [place] [address] Dr. Melecio Chadwick Hemoglobin (Bld) [Mass/Vol] 13.2 g/dL Normal 12.0-16.0 [facility] Comment on above: Performed By: #### C BC #### [facility] [address] [place] [address] Dr. Melecio Chadwick IG # 0.02 10e3/ul Normal 0.00-0.03 [facility] Comment on above: Performed By: #### C BC #### [facility] [address] [place] [address] Dr. Melecio Chadwick IG % 0.2 % Normal 0.0-0.5 [facility] Comment on above: Performed By: #### C BC #### [facility] [address] [place] [address] Dr. Melecio Chadwick LYMPH # 3.3 103/ul Normal 1.2-3.8 [facility] Comment on above: Performed By: #### C BC #### [facility] [address] [place] [address] Dr. Melecio Chadwick Lymphocytes/100 WBC (Bld) 38.0 % Normal 20.5-60.0 [facility] Comment on above: Performed By: #### C BC #### [facility] [address] [place] [address] Dr. Melecio Chadwick MANUAL DIFF REQ NO Normal [facility] Comment on above: Performed By: #### C BC #### [facility] [address] [place] [address] Dr. Melecio Chadwick MCH (RBC) [Entitic mass] 30.9 pg Normal 26.7-34.0 [facility] Comment on above: Performed By: #### C BC #### [facility] [address] [place] [address] Dr. Melecio Chadwick MCHC (RBC) [Mass/Vol] 31.6 g/dL Normal 29.9-35.2 [facility] Comment on above: Performed By: #### C BC #### [facility] [address] [id number] Melecio Chadwick MCV (RBC) [Entitic vol] 97.9 fL Normal 81.0-99.0 [facility] Comment on above: Performed By: #### C BC #### [facility] [address] [place] [address] Dr. Melecio Chadwick MONO # 0.4 103/ul Normal 0.3-0.8 [facility] Comment on above: Performed By: #### C BC #### [facility] [address] [place] [address] Dr. Melecio Chadwick Monocytes/100 WBC (Bld) 4.6 % Normal 1.7-12.0 [facility] Comment on above: Performed By: #### C BC #### [facility] [address] [place] [address] Dr. Melecio Chadwick NEUT # 4.8 103/ul Normal 1.4-6.5 [facility] Comment on above: Performed By: #### C BC #### [facility] [address] [place] [address] Dr. Melecio Chadwick Neutrophils/100 WBC (Bld) 55.5 % Normal 43.0-75.0 [facility] Comment on above: Performed By: #### C BC #### [facility] [address] [place] [address] Dr. Melecio Chadwick Platelet mean volume (Bld) [Entitic vol] 9.7 fL Normal 9.5-13.5 [facility] Comment on above: Performed By: #### C BC #### [facility] [address] [place] [address] Dr. Melecio Chadwick PLT 258 103/ul Normal 150-450 [facility] Comment on above: Performed By: #### C BC #### [facility] [address] [place] [address] Dr. Melecio Chadwick RBC 4.27 106/ul Normal 4.20-5.40 [facility] Comment on above: Performed By: #### C BC #### [facility] [address] [place] [address] Dr. Melecio Chadwick WBC 8.7 103/ul Normal 4.0-11.0 [facility] Comment on above: Performed By: #### C BC #### [facility] [address] [place] [address] Dr. Melecio Chadwick LIPASEon 03-19-2022 Lipase [Catalytic activity/Vol] 119.0 U/L Normal 73.0-393.0 [facility] Comment on above: Performed By: #### A MY, CMP, LIPA #### [facility] [address] [place] [address] Dr. Melecio Chadwick PROF 14(COMP METB)on 023 Albumin [Mass/Vol] 3.2 g/dL Critically low 3.4-5.0 [facility] Comment on above: Performed By: #### A MY, CMP, LIPA #### [facility] [address] [place] [address] Dr. Melecio Chadwick Albumin/Globulin [Mass ratio] 0.9 {ratio} Normal [facility] Comment on above: Performed By: #### A MY, CMP, LIPA #### [facility] [address] [place] [address] Dr. Melecio Chadwick ALP [Catalytic activity/Vol] 76 U/L Normal 46-116 [facility] Comment on above: Performed By: #### A MY, CMP, LIPA #### [facility] [address] [place] [address] Dr. Melecio Chadwick ALT [Catalytic activity/Vol] 18 U/L Normal 14-59 [facility] Comment on above: Performed By: #### A MY, CMP, LIPA #### [facility] [address] [place] [address] Dr. Melecio Chadwick Anion gap [Moles/Vol] 11.6 mmol/L Normal [facility] Comment on above: Performed By: #### A MY, CMP, LIPA #### [facility] [address] [place] [address] Dr. Melecio Chadwick AST [Catalytic activity/Vol] 14 U/L Critically low 15-37 [facility] Comment on above: Performed By: #### A MY, CMP, LIPA #### [facility] [address] [place] [address] Dr. Melecio Chadwick Bilirubin [Mass/Vol] 0.2 mg/dL Normal 0.2-1.0 [facility] Comment on above: Performed By: #### A MY, CMP, LIPA #### [facility] [address] [place] [address] Dr. Melecio Chadwick Calcium [Mass/Vol] 7.9 mg/dL Critically low 8.5-10.1 [facility] Comment on above: Performed By: #### A MY, CMP, LIPA #### [facility] [address] [place] [address] Dr. Melecio Chadwick Chloride [Moles/Vol] 105 mmol/L Normal 98-107 [facility] Comment on above: Performed By: #### A MY, CMP, LIPA #### [facility] [address] [place] [address] Dr. Melecio Chadwick CO2 [Moles/Vol] 25.8 mmol/L Normal 21.0-32.0 [facility] Comment on above: Performed By: #### A MY, CMP, LIPA #### [facility] [address] [place] [address] Dr. Melecio Chadwick Creatinine [Mass/Vol] 0.67 mg/dL Normal 0.55-1.02 [facility] Comment on above: Performed By: #### A MY, CMP, LIPA #### [facility] [address] [place] [address] Dr. Melecio Chadwick EGFR-AF CITIZEN [place] >60 Normal >=60 [facility] Comment on above: Performed By: #### A MY, CMP, LIPA #### [facility] [address] [place] [address] Dr. Melecio Chadwick EGFR-NON AF CITIZEN [place] >60 Normal >=60 [facility] Comment on above: Performed By: #### A MY, CMP, LIPA #### [facility] [address] [place] [address] Dr. Melecio Chadwick Globulin (S) [Mass/Vol] 3.6 g/dL Normal [facility] Comment on above: Performed By: #### A MY, CMP, LIPA #### [facility] [address] [place] [address] Dr. Melecio Chadwick Glucose [Mass/Vol] 95 mg/dL Normal 74-106 [facility] Comment on above: Performed By: #### A MY, CMP, LIPA #### [facility] [address] [place] [address] Dr. Melecio Chadwick Potassium [Moles/Vol] 3.4 mmol/L Critically low 3.5-5.1 [facility] Comment on above: Performed By: #### A MY CMP, LIPA #### [facility] [address] [place] [address] Dr. Melecio Chadwick Protein [Mass/Vol] 6.8 g/dL Normal 6.4-8.2 [facility] Comment on above: Performed By: #### A MY CMP, LIPA #### [facility] [address] [place] [address] Dr. Melecio Chadwick Sodium [Moles/Vol] 139 mmol/L Normal 136-145 [facility] Comment on above: Performed By: #### A MY CMP, LIPA #### [facility] [address] [place] [address] Dr. Melceio Chadwick Urea nitrogen [Mass/Vol] 6.0 mg/dL Critically low 7.0-18.0 [facility] Comment on above: Performed By: #### A MY, CMP, LIPA #### [facility] [address] [place] [address] Dr. Melecio Chadwick Urea nitrogen/Creatini ne [Mass ratio] 9.0 mg/mg Normal [facility] Comment on above: Performed By: #### A MY CMP, LIPA #### [facility] [address] [place] [address] Dr. Melecio Chadwick Intraoperative Noteon 2017 Intraoperative Note [id number]#1.00OTGTIFF Normal [facility] Intraoperative Noteon 2017 Intraoperative Note [id number]#1.00[facility] History and Physicalon 01-23 History and Physical [id number]#1.00[facility] Provider Orderson 01-23-2017 Protein [id number]#1.00[facility] Coding Summaryon 12-08-2016 Coding Summary CODING DATE: 017 [facility] STATUS: Home PAYOR: [employer] APC DESCRIPTION 5113 Level 3 Musculoskeletal Procedures ADMIT DX: REASON FOR VISIT DX: S83.242A Other tear of medial meniscus, current injury, left knee, initial encounter FINAL DX: PRINCIPAL: M22.42 Chondromalacia patellae, left knee SECONDARY: M94.9 Disorder of cartilage, unspecified PYMT PROC APC STAT DESCRIPTION DOCTOR NAME DATE 35950 5113 J1 Arthroscopy, knee, ARIES HARO 12/05/2016 surgical; debridement/shaving of articular cartilage (chondroplasty) LT Left side (used to identify procedures performed on the left side of the body) NOTE: The code number assigned matches the documented diagnosis and / or procedure in the patient's chart. However, the narrative phrase printed from the coding software may appear abbreviated, or result in slightly different terminology. Coded By: Tamanna Ambrocio Date Saved: 12/08/2016 03:51 pm [facility] Consent Formson 12-08-2016 Consent Forms [id number]#1.00[facility] Discharge Instructionson Discharge Instructions [id number]#[address] [place] [address] Intraoperative Noteon 2016 Intraoperative Note [id number]#1.00[facility] MAGR PACU Recordon 7 MAGR PACU Record MAGR PACU Record [facility] Primary Physician: ARIES HARO Finalized Date/Time: 12/08/16 10:49:55 Pt. Name: TAMY WALLS/Sex: 1980 FEMALE Med Rec #: [id number] Physician: ARIES HARO Financial #: [id number] Pt. Type: D Room/Bed: / Admit/Disch: 12/05/16 08:43:35 - 12/05/16 14:02:00 Institution: PACU Case Times MAGR Entry 1 In PACU I 12/05/16 11:45:00 Ready for PACU I 12/05/16 12:40:00 Discharge Discharge from PACU 12/05/16 12:40:00 I Last Modified By: Sana Jarvis RN 12/08/16 10:49:52 General Comments: Awake, aware, vital signs stable on O2 at 2 L min per nc.Respiration deep and regular. ECG shows RSR. Denying discomfort. Toes of surgical foot warm, pink, with immediate capillary refill. IV infusing well. Discharge to nursing unit per Dr Briggs using discharge criteria. Finalized By: Sana Jarvis RN Document Signatures Signed By: Sana Jarvis RN 12/08/16 10:49 [facility] Preoperative Recordon 1 [facility]operative [facility] Pre-Op Record Summary Primary Physician: ARIES HARO Finalized Date/Time: 12/08/16 10:20:04 Pt. Name: TAMY WALLS/Sex: 1980 FEMALE Med Rec #: [id number] Physician: ARIES HARO Financial #: [id number] Pt. Type: D Room/Bed: / Admit/Disch: 12/05/16 08:43:35 - 12/05/16 14:02:00 Institution: Pre-Op Case Times MAGR Pre-Care Text: Patient will be optimally prepared for surgery. Patient is free from s/s of injury. Provide information to patient/family related to plan of care. Verify patient allergies. Confirm identity and verify consent before the operative or invasive procedure. Entry 1 Patient Arrival Time 12/05/16 09:04:00 Preop Departure 12/05/16 10:35:00 Last Modified By: Marium Ledbetter RN 12/08/16 10:20:03 Post-Care Text: Patient is prepared mentally and physically and is ready for surgery. The patient remains free from s/s of injury. Patient/family express understanding of plan of care and participate in decisions affecting his or her perioperrative plan of care. Allergies documented appropriately. Patient identifiers and consent correct. General Comments: Pt arrives to psw ambulatory. Pt denies any pain, cp, sob or cough. Pt denies pacemaker/defibillator or sleep apnea. Pt has a cut on left lower leg from shaving, no active drainage noted or foul smelling. Dr. Haro in to visit with patient and checks razor cut on lower left leg......OK for surgery Finalized By: Marium Ledbetter RN Document Signatures Signed By: Marium Ledbetter RN 12/08/16 10:20 [facility] Medication Managementon 11-11 Medication Management [id number]#1.00OTGTIFF [facility] Telemetry Stripson 7 Telemetry Strips [id number]#1.00OTGTIFF [facility] Anesthesia Noteon 12-05-2016 Anesthesia Note Patient: RUFUS WALLS : 36 years Sex: FEMALE : [birth year]Associated Diagnoses: NoneAuthor: Bunny Briggs MDPostoperative InformationPost Operative Note: Operative Day.Anesthetic utilized: General.Health StatusAllergies:Allergic Reactions (All)Severity Not DocumentedDilaudid- Angio-oedema.Percocet 5/325- Nausea & vomiting.Problem list (past medical history):All ProblemsAnxiety / SNOMED CT 67336780 / ConfirmedPhysical ExaminationVS/MeasurementsV ital Signs (last 24 hrs) Last ChartedHeart Rate Peripheral H102 bpm (DEC 05 11:47)Resp Rate H 28 br/min (DEC 05 11:47)SBP 133 mmHg (DEC 05 11:47)DBP 87 mmHg (DEC 05 11:47)SpO2 99 % (DEC 05 11:47)Review / ManagementCondition: Stable.AssessmentAnesthetic outcomeNo anesthetic complications noted.PlanTransfer/ Discharge: Patient can be discharged from PACU when criteria met.Condition good.[Electronically Signed on: 12/05/2016 12:07 EDT] Bunny Briggs MD[Verified on: 12/05/2016 12:07 EDT] Bunny Briggs MD [facility] Anesthesia Note Patient: RUFUS WALLS : 36 years Sex: FEMALE : [birth year]Associated Diagnoses: NoneAuthor: Bunny Briggs MDPreoperative InformationAnesthesia history: Patient history: Nausea and vomiting with anesthesia, No difficult intubation, No malignant hyperthermia. Family history: usually delayed vomitting. After discharge, No malignant hyperthermia.Review of SystemsConstitutional: Negative.Respiratory: Negative, No shortness of breath.Cardiovascular: No chest pain.Neurologic: Alert and oriented X4.Health StatusAllergies:Allergic Reactions (All)Severity Not DocumentedDilaudid- Angio-oedema.Percocet 5/325- Nausea & vomiting.Current medications:Home Medications (1) Activedesvenlafaxine 50 mg oral tablet, extended release 50 mg = 1 tab(s), PO, DailyProblem list (past medical history):All ProblemsAnxiety / SNOMED CT 85112453 / ConfirmedHistoriesFamily History:No family history items have been selected or recorded.Procedure history:Hysterectomy (587042608) in 2014 at 33 Years.Comments:11/28/2016 10:07 - Shayy Sylvester RNpartialAppendectomy (275714910) in 2013 at 32 Years.Tubal ligation (335180900) in 2004 at 24 Years.Cholecystectomy (33848141) in 2000 at 19 Years.Ear care (905382226).Comments:2016 10:06 - Shayy Sylvester RNtubes s9Csmbkj History Alcohol Assessment Use: Never. Tobacco Assessment former smoker quit 2 yrs ago Tobacco Use:. Substance Abuse Assessment Substance use: Never..Social & Psychosocial WvfuveLmfnfnl28/20/2017 Alcohol Use: NeverSubstance Abuse11/28/2016 Substance use: SrkmtVjwpjds52/20/2017 Smoking tobacco use: former smoker quit 2 yrs ago.Physical ExaminationVS/MeasurementsV ital Signs (last 24 hrs) Last ChartedHeart Rate Peripheral 91 bpm (DEC 05 09:00)Resp Rate 16 br/min (DEC 05:00)SBP 137 mmHg (DEC 05 09:12)DBP 77 mmHg (DEC 05 09:12)SpO2 98 % (DEC 05:00)Airway: Mallampati classification: II (soft palate, fauces, uvula visible). Temporomandibular joint mobility: Good. Mouth: Adequate opening, Dentures ( Upper and lower dentures ). Neck: Full range of motion.Respiratory: Lungs are clear to auscultation.Cardiovascular : Regular rhythm.Neurologic: Alert, Oriented.Review / ManagementLaboratory ResultsPlanAmerican Society of Anesthesiologists#(ASA) physical status classification: Class II.Anesthetic Preoperative PlanAnesthesia: General.. Anesthetic plan, risks, benefits, and alternatives discussed with the patient and/or family. Patient verbalized understanding.[Electronical ly Signed on: 12/05/2016 10:25 EDT] Bunny Briggs MD[Verified on: 12/05/2016 10:25 EDT] Bunny Briggs MD [facility] MAGR Intraoperative Recordon 12-05-2016 MAGR Intraoperative Record MAGR Intra-Op Record Summary Primary Physician: ARIES HARO Finalized Date/Time: 12/05/16 11:52:54 Pt. Name: TAMY WALLS Cliff JaimeB./Sex: 1980 FEMALE Med Rec #: [id number] Physician: ARIES HARO Financial #: [id number] Pt. Type: D Room/Bed: / Admit/Disch: 12/05/16 08:43:35 - Institution: Case Times MAGR Entry 1 Patient In Room Time 12/05/16 10:37:00 Out Room Time 12/05/16 11:48:00 Anesthesia Start Time 12/05/16 10:37:00 Stop Time 12/05/16 11:48:00 Surgery Start Time 12/05/16 11:11:00 Stop Time 12/05/16 11:45:00 Last Modified By: Leslie Tolentino RN 12/05/16 11:51:58 Case Attendance MAGR Entry 1 Entry 2 Entry 3 Case Attendee ARIES HARO Robert M MD Sauer, Stephanie RN Role Performed Surgeon - Primary Anesthesiologist of Supervisor Last Model Department Record Time In 12/05/16 10:37:00 12/05/16 10:37:00 12/05/16 10:37:00 Time Out 12/05/16 11:30:00 12/05/16 11:48:00 12/05/16 11:48:00 Procedure Arthroscopy Knee(Left) Arthroscopy Knee(Left) Arthroscopy Knee(Left) Last Modified By: Leslie Tolentino RN, Stephanie RN Sauer, Stephanie RN 12/05/16 11:52:02 12/05/16 11:52:02 12/05/16 11:52:02 Entry 4 Entry 5 Entry 6 Case Attendee Ro Morrison RN, Leigh-Ann CST Nikolaus, Linda M Role Performed Supervisor Last Model Department Youth Counselor Scrub Personnel Time In 12/05/16 10:37:00 12/05/16 10:37:00 12/05/16 10:37:00 Time Out 12/05/16 11:48:00 12/05/16 11:48:00 12/05/16 11:48:00 Procedure Arthroscopy Knee(Left) Arthroscopy Knee(Left) Arthroscopy Knee(Left) Last Modified By: Leslie Tolentino RN, Stephanie RN Sauer, Stephanie RN 12/05/16 11:52:02 12/05/16 11:52:02 12/05/16 11:52:02 Surgical Procedures MAGR Pre-Care Text: A.20 Verifies operative procedure, surgical site, and laterality Im.150 Develops individualized plan of care Entry 1 Procedure Arthroscopy Knee Primary Procedure Yes Primary Surgeon ARIES HARO Left Surgeon Comment LEFT KNEE ARTHROSCOPY Start 12/05/16 11:11:00 Stop 12/05/16 11:45:00 Anesthesia Type General Surgical Service Orthopedics Wound Class Clean Last Modified By: Leslie Tolentino RN 12/05/16 11:52:07 Post-Care Text: O.730 The patient's care is consistent with the individualized perioperative plan of care General Case Data MAGR Pre-Care Text: A.350.1 Classifies surgical wound Entry 1 Case Information OR MAGR OR 01 Case Level Level 4 Wound Class Clean Specialty Orthopedics ASA Class 2 Diagnosis Preop Diagnosis INTERNAL DERANGEMENT Postop Same As Preop Yes LEFT KNEE Postop Diagnosis INTERNAL DERANGEMENT LEFT KNEE Last Modified By: Leslie Tolentino RN 12/05/16 11:17:16 Post-Care Text: O.760 Patient receives consistent and comparable care regardless of the setting Time Out MAGR Entry 1 Time out date/time 12/05/16 11:09:00 All team members Yes have introduced themselves by name and role Surgeon, Yes Surgeon reviews Yes anesthesia, nurse critical or confirm patient, unexpected steps, site, procedure operative duration, anticipated blood loss Anesthesia team Yes Nursing team No reviews any reviews sterility patient-specific (including concerns indicator results) and equipment issues/concerns Antibiotic N/A Is essential Yes prophylaxis given imaging displayed? within the last 60 minutes Last Modified By: Leslie Tolentino RN 12/05/16 11:17:32 Skin Prep MAGR Pre-Care Text: A.30 Verifies allergies Im.270 Performs skin preparation Im.270.1 Implements protective measures to prevent skin and tissue injury due to chemical sources Entry 1 Skin Prep Syntegrity Prep Agents (Im.270) Povidone-Iodine Prep By Ro Morrison RN Prep Area (Im.270) Knee and lower leg Prep Area Details Left Skin Prep Agent Dry Yes Without Pooling Hair Removal Syntegrity Hair Removal Methods No hair removal performed Outcome Met (O.100) Yes Last Modified By: Leslie Tolentino RN 12/05/16 11:18:04 Post-Care Text: E.10 Evaluates for signs and symptoms of physical injury to skin and tissue O.100 Patient is free from signs and symptoms of chemical injury Counts Verification MAGR Pre-Care Text: A.20 Verifies operative procedure, surgical site, and laterality A.20.2 Assesses the risk for unintended retained foreign body Im.20 Performs required counts Entry 1 Procedure Arthroscopy Knee(Left) Counts Verification Initial Counts Items included in Sponges, Sharps Initial Counts Leslie Tolentino RN, the Initial Count Performed By Rosemarie Lang Initial Count Time 12/05/16 10:45:00 Counts Verification Final Counts Items Included in Sponges, Sharps Final Count Status Correct Final Count Final Counts Leslie Tolentino RN, Final Count Time 12/05/16 11:30:00 Performed By Rosemarie Lang Surgeon notified of Yes final counts status Outcome Met (O.20) Yes Last Modified By: Leslie Tolentino RN 12/05/16 11:33:07 Post-Care Text: E.50 Evaluates results of the surgical count O.20 Patient is free from unintended retained foreign objects Dressing/Packing MAGR Pre-Care Text: A.350 Assesses susceptibility for infection Im.290 Administer care to wound sites Entry 1 Skin Prep Agent Yes Site Knee Removed Prior to Dressing? Site Details Left Dressing Item Details Dressing Item 4x4's, ABD Tape (Im.290) Foam (Im.290) Outcome Met Yes Last Modified By: Leslie Tolentino RN 12/05/16 11:19:23 Post-Care Text: E.200 Evaluates progress of wound healing O.200 Patient's wound perfusion is consistent with or improved from baseline levels Departure from OR MAGR Entry 1 Present on Depart Oxygen Via Stretcher Post-op Destination PACU Skin DFO Condition Dry Description Condition Warm Description Report Given To Sana Jarvis RN Airway Maintenance Patient Status Stable Oxygen in Use? Yes Airway Device Simple mask Flow Rate 15 Last Modified By: Leslie Tolentino RN 12/05/16 11:20:09 Case Comments Finalized By: Leslie Tolentino RN Document Signatures Signed By: Leslie Tolentino RN 12/05/16 11:52 [facility] MAGR Postoperative Recordon 12-05-2016 MAGR Postoperative Record MAGR Phase II Record Summary Primary Physician: ARIES HARO Finalized Date/Time: 12/05/16 14:50:11 Pt. Name: TAMY WALLS /Sex: 1980 FEMALE Med Rec #: [id number] Physician: ARIES HARO Financial #: [id number] Pt. Type: D Room/Bed: / Admit/Disch: 12/05/16 08:43:35 - 12/05/16 14:02:00 Institution: Phase II Case Times MAGR Pre-Care Text: Patient is free from s/s of injury. Patient remains free from compromised physical state related to surgery or anesthesia. Patient comfort maintained. Patient/family verbalize understanding of discharge instructions. Entry 1 In PACU II 12/05/16 12:35:00 Ready for PACU II 12/05/16 14:00:00 Discharge Discharge from PACU 12/05/16 14:02:00 II Last Modified By: Sana Jarvis RN 12/05/16 14:50:08 Post-Care Text: The patient remains free from s/s of injury. Patient's vital signs stable, circulation maintained, return to preop mental and physical status, opsite/dressing intact, minimal or absent nausea and vomiting, tolerates po intake. Patient verbalizes adequate pain control. Patient/family express understanding of discharge instructions. General Comments: 1235Awake, aware, vital signs stable on O2 at 2 L min per NC. Respirations deep and regular. Complains of aching at left knee. Left Pedal pulse palpable at 2+. Ice pack in place left knee.Dressing dry and intact. Grand mother at bedside. 1320.....care assumed from Og Jarvis RN...report received 2882 - discharge instructions reviewed with patient, daughter, and grandmother. All verbalize understanding. Copy of instructions sent home with patient along with prescription for percocet......discharged per wheelchair to private auto driven by daughter for home Finalized By: Sana Jarvis RN Document Signatures Signed By: Sana Jarvis RN 12/05/16 14:50 [facility] Progress Note - Nurseon 10-2 Progress Note - Nurse Spoke with pt and informed her to be here at 9am and NPO after MN, she verbalizes understanding.[Electronical ly Signed on: 12/04/2016 09:42 EDT] Shayy Sylvester RN[Verified on: 12/04/2016 09:42 EDT] Shayy Sylvester RN [facility] Vital Signs Date Time Vital Sign Value Performing Clinician Faci lity 10-27-2022 20:03-0400 Diastolic blood pressure 76 mm[Hg] Anna Callahan MD Work Phone: [facility] 10-27-2022 20:03-0400 SaO2% (BldA) [Mass fraction] 98 % Anna Callahan MD Work Phone: [facility] 10-27-2022 20:03-0400 Systolic blood pressure 126 mm[Hg] Anna Callahan MD Work Phone: [facility] 10-27-2022 15:17-0400 Body weight 104.33 kg Anna Callahan MD Work Phone: [facility] 10-27-2022 15:15-0400 Body temperature 97.9 [degF] Anna Callahan MD Work Phone: [facility] 10-27-2022 15:15-0400 Heart rate 100 /min Anna Callahan MD Work Phone: [facility] 10-27-2022 15:15-0400 Respiratory rate 18 /min Anna Callahan MD Work Phone: [facility] Encounters Encounter Date Encounter Type Care Provider Facility Start: 10-27-2022 End: 10-27-2022 Emergency department patient visit Anna Callahan MD Work Phone: [facility] Comment on above: Left flank pain (Berenice oreilly Dx) Start: 04-21-2022 End: 04-22-[address] FRANCIA RODRIGUEZ . Facility:[facility] Start: 03-24-2022 End: 03-25-[address] FRANCIA RODRIGUEZ . Facility:[facility] Start: 03-19-2022 End: 03-19-[address] FRANCIA RODRIGUEZ . Facility: Start: 12-05-2016 End: 12-05-2016 Patient encounter [facility] Facility:[facility] Start: 11-29-2016 End: 11-29-2016 Patient encounter [facility] Facility:[facility] Procedures Date Procedure Procedure Detail Performing Clinician Start: 10-27-2022 Ct abdomen & pelvis w/contrast material Tyler Galarza PA-C Work Phone: Start: 10-27-2022 Urnls dip stick/tabl et reagent auto microscopy Anna Callahan MD Work Phone: Start: 10-27-2022 Comprehensive metabo lic panel Anna Callahan MD Work Phone: Plan of Treatment Date Care Activity Detail Author Start: 09-09-2022 Influenza vaccination Flu vaccine (# 1) [facility] Start: 2021 Lipid panel Lipids [facility] Start: 05-01-2011 Screening for malign ant neoplasm of cervix [facility] Start: 2002 Screening for malign ant neoplasm of cervix Pap smear [facility] Start: 2000 DTaP/Tdap/Td vaccine (1 - Tdap) DTaP/Tdap/Td vaccine (1 - Tdap) [facility] Start: 05-01-1999 Hepatitis C screening Hepatitis C sc reen [facility] Start: 1996 HIV screening HIV screen [facility] Start: 1993 Depression Screen Depression Screen [facility] Start: 1982 Varicella vaccine (1 of 2 - 2-dose childhood series) Varicella vaccine (1 of 2 - 2-dose childhood series) [facility] Start: 1981 COVID-19 Vaccine (#1) COVID-19 Vacci ne (#1) [facility] Start: 1981 Hepatitis B vaccine (1 of 3 - 3-dose series) Hepatitis B vaccine (1 of 3 - 3-dose series) [facility] End: 10-27-2022 Culture, Urine [facility] Work Phone: Comment on above: One Time for 1 Occur rences starting 10/27/2022 until 10/27/2022 Payers Date Payer Category Payer Unknown [id number] 1980 Unknown [id number] [id number] [id number] 1980 Unknown [id number] [id number] [id number] 1980 Unknown [id number] [id number] [id number] 1980 Unknown [id number] [id number] 1958 Unknown [id number] Social History Date Type Detail Facility Tobacco smoking stat [facility] Tobacco smoking consumption unknown [facility] Start: 1980 Sex Assigned At Not on file [facility] Gender identity Not on file [facility] Hospital Discharge instructions 10-27-2022 Discharge InstructionsAttachments Note Date & Type Note Facility 10-27-2022 Hospital Discharg e instructions Tyler Galarza PA-C - 10/27/2022 7:59 PM EDT Follow-up with primary care doctor 7 to 10 days for reevaluation. Continue home medications as prescribed. Take Tylenol or Motrin as directed for discomfort. Continue to drink plenty of fluids as tolerated. Promptly return to emergency department for new, changing, worsening symptoms or other concerns. The following attachments cannot be sent through Care Everywhere.Flank Pain (Greenlandic)documented in this encounter [facility] Evaluation note Note Date & Type Note Facility Evaluation note Diagnosis Left flank pain- Primary Abdominal pain, unspecified site documented in this encounter [facility] Summary Purpose Family History No Family History Records FoundNo Family History Records FoundNo Family History Records Found Advance Directives No Advanced Directives Records FoundNo Advanced Directives Records FoundNo Advanced Directives Records Found Additional Source Comments INFORMATION SOURCE (unrecogn ized section and content) DATE CREATED AUTHOR 08/22/[address] [facility] l DATE CREATED AUTHOR AUTHOR'S ORGANIZ ATION 04/28/2022 [facility] DATE CREATED AUTHOR AUTHOR'S ORGANIZ ATION 08/06/2023 [facility] Reason for Visit (unrecogniz ed section and content) Reason Comments Flank Pain Left flank pain ongo ing for the past few days. on 4th day of macrobid, completed 2 other courses of antibiotics for ongoing UTI for 3 weeks. Scheduled Active and Recently Administ ered Medications (unrecognized section and content) Medication Order 10/25/2022 10/26/2022 10/27/2022 ketorolac (TORADOL) injection 15 mg (COMPLETED) 15 mg, IntraVENous, ONCE, 1 dose, On Thu10/27/22 at 1900, Do not administer for more than 5 days. 190 (Given - Provid er: Karen Nuno RN) ondansetron (ZOFRAN) injection 4 mg (COMPLETED) 4 mg, IntraVENous, ONCE, 1 dose, On Thu10/27/22 at 1745 1759 (Given - Provid er: Karen Nuno RN) sodium chloride 0.9 % bolus 1,000 mL (COMPLETED) 1,000 mL (9.59 mL/kg), IntraVENous, at 495.9 mL/hr, Administer over 121 Minutes, ONCE, On Thu10/27/22 at 1745, For 1 dose, For adult patients weighing > 55 kg (120 lbs.) and less than <50 years of age initiate 0.9NS at 500 mL/ hr. All bolus orders are to be given over 10 to 15 minutes 1758 (New Bag - Prov ider: Karen Nuno RN)2002 (Stopped - Provider: Karen Nuno RN) PRN Medication Order 10/25/2022 10/26/2022 10/27/2022 iopamidol (ISOVUE-370) 76 % injection 75 mL (COMPLETED) 75 mL, IntraVENous, IMG ONCE PRN, 1 dose, Starting on Thu10/27/22 at 1746, Until Thu10/27/22 at 1749, Other 1749 (Given - Provid er: Rima Gleason) FOR RECORDS PERTAINING TO PATIENTS WHO ARE OR HAVE BEEN ENROLLED IN A CHEMICAL DEPENDENCY/SUBSTANCEABUSE PROGRAM, SOME INFORMATION MAY BE OMITTED. This clinical summary was aggregated from multiple sources. Caution should be exercised in using it in the provision of clinical care. This summary normalizes information from multiple sources, and as a consequence, information in this document may materially change the coding, format and clinical context of patient data. In addition, data may be omitted in some cases. CLINICAL DECISIONS SHOULD BE BASED ON THE PRIMARY CLINICAL RECORDS. [employer] [facility]. provides no warranty or guarantee of the accuracy or completeness of information in this document.
[2023-09-04 10:21] LABS: Basophils Percent Auto 0.3 % (0.2-2.0); Eosinophils Absolute Auto 0.1 10^3/uL (0.0-0.7); Eosinophils Percent Auto 1.1 % (0.9-7.0); Hematocrit 44.7 % (36.0-48.0); Hemoglobin 14.6 g/dL (12.0-16.0); Immature Granulocytes Abs Auto 0.07 10^3/uL (0.00-0.03); Immature Granulocytes Pct Auto 0.6 % (0.0-0.5); Lymphocytes Absolute Auto 2.7 10^3/uL (1.2-3.8); Mean Corpuscular HGB Conc 32.7 g/dL (29.9-35.2); Mean Corpuscular Hemoglobin 31.2 pg (26.7-34.0); Mean Corpuscular Volume 95.5 fL (81.0-99.0); Mean Platelet Volume 9.5 fL (9.5-13.5); Monocytes Absolute Auto 0.9 10^3/uL (0.3-0.8); Monocytes Percent Auto 7.7 % (1.7-12.0); Neutrophils Absolute Auto 7.5 10^3/uL (1.4-6.5); Neutrophils Percent Auto 66.3 % (43.0-75.0); Platelet Count 273 10^3/uL (150-450); Red Blood Count 4.68 10^6/uL (4.20-5.40); Red Cell Distribution Width 12.8 % (11.0-15.0); White Blood Count 11.3 10^3/uL (4.0-11.0)
[2023-09-04 10:23] LABS: Bilirubin Urine NEGATIVE (NEGATIVE); Blood Urine NEGATIVE (NEGATIVE); Clarity Urine SL CLOUDY (CLEAR); Color Urine YELLOW (YELLOW); Glucose Urine UA NEGATIVE (NEGATIVE); Ketones Urine NEGATIVE (NEGATIVE); Leukocyte Esterase Urine NEGATIVE (NEGATIVE); Nitrite Urine NEGATIVE (NEGATIVE); Protein Urine NEGATIVE (NEG/TRACE); Urobilinogen Urine 0.2 EU/dL (0.2-1.0)
[2023-09-04 10:48] LABS: Alanine Aminotransferase 23 U/L (14-59); Albumin Globulin Ratio 0.8; Albumin Level 3.4 g/dL (3.4-5.0); Alkaline Phosphatase 86 U/L (46-116); Amylase 116 U/L (25-115); Aspartate Amino Transferase 14 U/L (15-37); BUN Creatinine Ratio 13.5; Bilirubin Total 0.3 mg/dL (0.2-1.0); Calcium 8.8 mg/dL (8.5-10.1); Carbon Dioxide 29.5 mmol/L (21.0-32.0); Chloride 101 mmol/L (98-107); Estimated GFR (African America >60 (>=60); Estimated GFR (Non-African Ame >60 (>=60); Globulin 4.4 g/dL; Glucose 110 mg/dL (74-106); Potassium 3.5 mmol/L (3.5-5.1); Sodium 137 mmol/L (136-145); Total Protein 7.8 g/dL (6.4-8.2)
[2023-09-04 11:10] LABS: Bacteria Urine MODERATE #/HPF (NONE SEEN); Crystals Seen? None Seen #/HPF (None Seen); Mucus Urine TRACE (NONE SEEN); RBC Urine 0-2 #/HPF (0-2); Squamous Epithelial Cell Urine MANY #/LPF (NONE/RARE); WBC Urine 0-2 #/HPF (NONE SEEN)
[2023-09-04 11:11] LABS: Cast Seen? NONE SEEN #/LPF (NONE SEEN)
== END 2023-09-04 09:55 | disposition home or self-care (01) ==
PROVIDERS: PCP Family Medicine; Visit Provider Family Medicine
DX: K52.9 Noninfective gastroenteritis and colitis, unspecified (principal); N39.0 Urinary tract infection, site not specified
CPT/HCPCS: 36415; 80053; 81001; 82150; 83690; 85025; 87086

== ENCOUNTER 2023-09-04 20:04 | Emergency (ER) | payer OTHER, SELFPAY ==
[2023-09-04 20:07] VITALS: BP 175/127; PULSE 95; TEMP 36.6; O2SAT 98; BMI 36.8
--- OUTSIDE RECORDS SUMMARY | 2023-09-04 20:12 | XMS_ITS | CCD ---
Author Organization [facility] Care Team Providers Care Tight Rope Walker Name Role Phone STEPANIC, ARIES C Unavailable [...] Unavailable HOY ., DR FELDMAN Consulting Unavailable [place], DR MAURICIO Fraser Consulting Unavailable Unavailable Primary Care Provider ANNA Crain Attending Unavailable Allergies Allergy Classification Reported Allergen(s) Allergy Type Date of Onset Reaction(s) Facility (1 source) acetaminophen / oxyCODONE; Translations: [Percocet 5/325] Drug Allergy [facility] Repository (2 sources) HYDROmorphone; Translations: [Dilaudid] Drug Allergy [facility] Repository (1 source) egg extract Drug Allergy 02-09-2006 [facility] Repository (1 source) HYDROmorphone Drug Allergy 10-27-2022 [facility] Medications Current Medications Medication Drug Class(es) Dates [...] Diffon 08-05-2023 Abs. Basophil <0.03 Normal 0.00-0.20 [facility] Comment on above: Performed By: #### T , CDP #### [facility] [address] [place], [place] [id number] Oncology Research Rn: Mauricio Irby MD #### LIPR, FT3, INSU, T4, FE, GLYHGB #### [address] [phone] Oncology Research Rn: Casa Medrano MD Abs.Imm.Granulocy te 0.05 k/uL Normal 0.00-0.30 [facility] Comment on above: Performed By: #### T SH, CDP #### [address] [place] [phone] Oncology Research Rn: Mauricio Irby MD #### LIPR, FT3, INSU, T4, FE, GLYHGB #### [place] [address] Oncology Research Rn: Casa Medrano MD Abs.Neutrophil (Seg) 7.71 k/uL Normal 1.50-8.10 [facility] Comment on above: Performed By: #### T SH, CDP #### [address] [place] [phone] Oncology Research Rn: Mauricio Irby MD #### LIPR, FT3, INSU, T4, FE, GLYHGB #### [place] [id number] Oncology Research Rn: Casa Medrano MD Basophils/100 WBC (Bld) 0 % Normal 0-2 [facility] Comment on above: Performed By: #### T SH, CDP #### [address] [place] [phone] Oncology Research Rn: Mauricio Irby MD #### LIPR, FT3, INSU, T4, FE, GLYHGB #### [address] [phone] Oncology Research Rn: Casa Medrano MD Eosinophils (Bld) [#/Vol] 0.10 10*3/uL Normal 0.00-0.44 [facility] Comment on above: Performed By: #### T SH, CDP #### [address] [place] [address] Oncology Research Rn: Mauricio Irby MD #### LIPR, FT3, INSU, T4, FE, GLYHGB #### [address] [phone] Oncology Research Rn: Casa Medrano MD Eosinophils/100 WBC (Bld) 1 % Normal 1-4 [facility] Comment on above: Performed By: #### T SH, CDP #### [address] [place] [address] Oncology Research Rn: Mauricio Irby MD #### LIPR, FT3, INSU, T4, FE, GLYHGB #### [address] [phone] Oncology Research Rn: Casa Medrano MD Erythrocyte distribution width (RBC) [Ratio] 12.5 % Normal 11.8-14.4 [facility] Comment on above: Performed By: #### T SH, CDP #### [address] [place] [address] Oncology Research Rn: Mauricio Irby MD #### LIPR, FT3, INSU, T4, FE, GLYHGB #### [address] [phone] Oncology Research Rn: Casa Medrano MD Hematocrit (Bld) [Volume fraction] 45.1 % Normal 36.3-47.1 [facility] Comment on above: Performed By: #### T SH, CDP #### [address] [place] [address] Oncology Research Rn: Mauricio Irby MD #### LIPR, FT3, INSU, T4, FE, GLYHGB #### [address] [phone] Oncology Research Rn: Casa Medrano MD Hemoglobin (Bld) [Mass/Vol] 15.2 g/dL High 11.9-15.1 [facility] Comment on above: Performed By: #### T SH, CDP #### [facility] [address] [place] [address] Dr. [place] [phone] Oncology Research Rn: Mauricio Irby MD #### LIPR, FT3, INSU, T4, FE, GLYHGB #### [address] [address] Oncology Research Rn: Casa Medrano MD Immature granulocytes/100 WBC (Bld) 1 % High 0 [facility] Comment on above: Performed By: #### T SH, CDP #### [address] [place] [phone] Oncology Research Rn: Mauricio Irby MD #### LIPR, FT3, INSU, T4, FE, GLYHGB #### [place] [address] Oncology Research Rn: Casa Medrano MD Lymphocytes (Bld) [#/Vol] 2.55 10*3/uL Normal 1.10-3.70 [facility] Comment on above: Performed By: #### T SH, CDP #### [facility] [address] [place] [address] Dr. [place] [phone] Oncology Research Rn: Mauricio Irby MD #### LIPR, FT3, INSU, T4, FE, GLYHGB #### [address] [phone] Oncology Research Rn: Casa Medrano MD Lymphocytes/100 WBC (Bld) 23 % Low 24-43 [facility] Comment on above: Performed By: #### T SH, CDP #### [facility] [address] [place] [address] Dr. [place] [phone] Oncology Research Rn: Mauricio Irby MD #### LIPR, FT3, INSU, T4, FE, GLYHGB #### [place] [address] [place], [place] [phone] Oncology Research Rn: Casa Medrano MD MCH (RBC) [Entitic mass] 31.6 pg Normal 25.2-33.5 [facility] Comment on above: Performed By: #### T SH, CDP #### [address] [place] [phone] Oncology Research Rn: Mauricio Irby MD #### LIPR, FT3, INSU, T4, FE, GLYHGB #### [address] [phone] Oncology Research Rn: Casa Medrano MD MCHC (RBC) [Mass/Vol] 33.7 g/dL Normal 28.4-34.8 [facility] Comment on above: Performed By: #### T SH, CDP #### [address] [place] [phone] Oncology Research Rn: Mauricio Irby MD #### LIPR, FT3, INSU, T4, FE, GLYHGB #### [place] [address] Oncology Research Rn: Casa Medrano MD MCV (RBC) [Entitic vol] 93.8 fL Normal 82.6-102.9 [facility] Comment on above: Performed By: #### T SH, CDP #### [address] [place] [phone] Oncology Research Rn: Mauricio Irby MD #### LIPR, FT3, INSU, T4, FE, GLYHGB #### [place] [phone] Oncology Research Rn: Casa Medrano MD Monocytes (Bld) [#/Vol] 0.60 10*3/uL Normal 0.10-1.20 [facility] Comment on above: Performed By: #### T SH, CDP #### [facility] [address] [place], [place] [phone] Oncology Research Rn: Mauricio Irby MD #### LIPR, FT3, INSU, T4, FE, GLYHGB #### [address] [phone] Oncology Research Rn: Casa Medrano MD Monocytes/100 WBC (Bld) 5 % Normal 3-12 [facility] Comment on above: Performed By: #### T SH, CDP #### [facility] [address] [place] [address] Oncology Research Rn: Mauricio Irby MD #### LIPR, FT3, INSU, T4, FE, GLYHGB #### [address] [phone] Oncology Research Rn: Casa Medrano MD Neutrophil (Seg) 70 % High 36-65 [facility] Comment on above: Performed By: #### T SH, CDP #### [facility] [address] [place] [address] [place] [address] Oncology Research Rn: Mauricio Irby MD #### LIPR, FT3, INSU, T4, FE, GLYHGB #### [address] [address] Oncology Research Rn: Casa Medrano MD NRBC Automated 0.0 per 100 WBC Normal 0.0 [facility] Comment on above: Performed By: #### T SH, CDP #### [facility] [address] [place] [address] Oncology Research Rn: Mauricio Irby MD #### LIPR, FT3, INSU, T4, FE, GLYHGB #### [address] [phone] Oncology Research Rn: Casa Medrano MD Platelet mean volume (Bld) [Entitic vol] 9.2 fL Normal 8.1-13.5 [facility] Comment on above: Performed By: #### T SH, CDP #### [address] [place], [place] [phone] Oncology Research Rn: Mauricio Irby MD #### LIPR, FT3, INSU, T4, FE, GLYHGB #### [place] [address]272 [place] [address] Oncology Research Rn: Casa Medrano MD Platelets (Bld) [#/Vol] 297 10*3/uL Normal 138-453 [facility] Comment on above: Performed By: #### T SH, CDP #### [address] [place], [place] [phone] Oncology Research Rn: Mauricio Irby MD #### LIPR, FT3, INSU, T4, FE, GLYHGB #### [address] [address] Oncology Research Rn: Casa Medrano MD RBC (Bld) [#/Vol] 4.81 10*6/uL Normal 3.95-5.11 [facility] Comment on above: Performed By: #### T SH, CDP #### [address] [place], [place] [phone] Oncology Research Rn: Mauricio Irby MD #### LIPR, FT3, INSU, T4, FE, GLYHGB #### [address] [address] Oncology Research Rn: Casa Medrano MD WBC (Bld) [#/Vol] 11.0 10*3/uL Normal 3.5-11.3 [facility] Comment on above: Performed By: #### T SH, CDP #### [address] [place], [place] [phone] Oncology Research Rn: Mauricio Irby MD #### LIPR, FT3, INSU, T4, FE, GLYHGB #### [address] [phone] Oncology Research Rn: Casa Medrano MD Hemoglobin A1Con 08-05-2023 Glucose [Mass/Vol] 100 mg/dL Normal [facility] Comment on above: Result Comment: The ADA and AACC recommend providing the estimated average glucose result to permit better patient understanding of their HBA1c result. Performed By: #### C JANIE RAMIREZ, CP #### [facility] [address] [place] [address] Dr. [place], [place] [phone] Oncology Research Rn: Mauricio Iryb MD HbA1c (Bld) [Mass fraction] 5.1 % Normal 4.0-6.0 [facility] Comment on above: Performed By: #### C JANIE RAMIREZ, CP #### [address] [place], [place] [phone] Oncology Research Rn: Mauricio Irby MD Insulinon 08-05-2023 Insulin 19.2 mU/L Normal [facility] Comment on above: Performed By: #### T SH, CDP #### [address] [place], [place] [phone] Oncology Research Rn: Mauricio Irby MD #### LIPR, FT3, INSU, T4, FE, GLYHGB #### [facility] [place], [place] [phone] Oncology Research Rn: Casa Medrano MD Reference Range Normal [facility] Comment on above: Result Comment: Fast in.6-24.9 30 min: 20-112 60 min: 29-88 90 min: 26-84 120 min: 22-79 Performed By: #### T SH, CDP #### [facility] [address] [place] [address] [place] [address] Oncology Research Rn: Mauricio Irby MD #### LIPR, FT3, INSU, T4, FE, GLYHGB #### [place] [address] [place], [place] [phone] Oncology Research Rn: Casa Medrano MD Ironon 08-05-2023 Iron [Mass/Vol] 68 ug/dL Normal 37-145 [facility] Comment on above: Performed By: #### C DP, LIP, CP #### [address] [place] [address] Oncology Research Rn: Mauricio Irby MD Lipid Profileon 08-05-2023 Cholesterol [Mass/Vol] 171 mg/dL Normal 0-199 [facility] Comment on above: Result Comment: Cholesterol Guidelines: <200 Desirable 200-240 Borderline >240 Undesirable Performed By: #### T SH, CDP #### [address] [place] [address] Oncology Research Rn: Mauricio Irby MD #### LIPR, FT3, INSU, T4, FE, GLYHGB #### [address] [phone] Oncology Research Rn: Casa Medrano MD Cholesterol in HDL [Mass/Vol] 52 mg/dL Normal >40 [facility] Comment on above: Result Comment: HDL Guidelines: <40 Undesirable 40-59 Borderline >59 Desirable Performed By: #### T SH, CDP #### [address] [place] [address] Oncology Research Rn: Mauricio Irby MD #### LIPR, FT3, INSU, T4, FE, GLYHGB #### [address] [phone] Oncology Research Rn: Casa Medrano MD Cholesterol in LDL [Mass/Vol] 100 mg/dL Normal 0-100 [facility] Comment on above: Result Comment: LDL Guidelines: <100 Desirable 100-129 Near to/above Desirable 130-159 Borderline >159 Undesirable Direct (measured) LDL and calculated LDL are not interchangeable tests. Performed By: #### T SH, CDP #### [address] [place] [address] Oncology Research Rn: Mauricio Irby MD #### LIPR, FT3, INSU, T4, FE, GLYHGB #### [place] [address] [place] [address] Oncology Research Rn: Casa Medrano MD Cholesterol in VLDL [Mass/Vol] 19 mg/dL Normal [facility] Comment on above: Performed By: #### T SH, CDP #### [address] [place], [place] [phone] Oncology Research Rn: Mauricio Irby MD #### LIPR, FT3, INSU, T4, FE, GLYHGB #### [address] [address] Oncology Research Rn: Casa Medrano MD Cholesterol.total /Cholesterol in HDL [Mass ratio] 3.0 {ratio} Normal [facility] Comment on above: Performed By: #### T DANIEL, CDP #### [address] [place] [address] Oncology Research Rn: Mauricio Irby MD #### LIPR, FT3, INSU, T4, FE, GLYHGB #### [address] [phone] Oncology Research Rn: Casa Medrano MD Triglyceride [Mass/Vol] 93 mg/dL Normal <150 [facility] Comment on above: Result Comment: Triglyceride Guidelines: <150 Desirable 150-199 Borderline 200-499 High >499 Very high Based on AHA Guidelines for fasting triglyceride, November 2011. Performed By: #### T SH, CDP #### [address] [place], [place] [phone] Oncology Research Rn: Mauricio Irby MD #### LIPR, FT3, INSU, T4, FE, GLYHGB #### [address] [address] Oncology Research Rn: Casa Medrano MD T3, Freeon 08-05-2023 Free T3 [Mass/Vol] 2.90 pg/mL Normal 2.00-4.40 [facility] Comment on above: Performed By: #### C DP LIP, CP #### [address] [place] [address] Oncology Research Rn: Mauricio Irby MD Thyroid Stim. Horm.on 2023 Thyroid Stim. Horm. 1.33 uIU/mL Normal 0.30-5.00 [facility] Comment on above: Performed By: #### T SH, CDP #### [address] [place] [address] Oncology Research Rn: Mauricio Irby MD #### LIPR, FT3, INSU, T4, FE, GLYHGB #### [place] [address] [place], [place] [phone] Oncology Research Rn: Casa Medrano MD Thyroxine T4on 08-05-2023 T4 [Mass/Vol] 9.9 ug/dL Normal 4.5-11.7 [facility] Comment on above: Performed By: #### T SH, CDP #### [address] [place] [address] Oncology Research Rn: Mauricio Irby MD #### LIPR, FT3, INSU, T4, FE, GLYHGB #### [place] [address] [place], [place] [id number] Oncology Research Rn: Casa Medrano MD Cult,Urineon 10-28-2022 Cult,Urine Specimen Description .CLEAN CATCH URINE Culture NO SIGNIFICANT GROWTH Report Status FINAL 10/28/2022 Normal [facility] Comment on above: Performed By: #### C JANIE RAMIREZ, CP #### [address] [place] [address] Oncology Research Rn: Mauricio Irby MD CBC with Auto Differentialon 10-27-2022 Basophils (Bld) [#/Vol] 0.03 10*3/uL [facility] Basophils/100 WBC (Bld) 0 % 0 - 2 % [facility] Eosinophils (Bld) [#/Vol] 0.07 10*3/uL [facility] Eosinophils/100 WBC (Bld) 1 % 1 - 4 % [facility] Erythrocyte distribution width (RBC) [Ratio] 12.6 % 11.8 - 14.4 % [facility] Hematocrit (Bld) [Volume fraction] 43.7 % 36.3 - 47.1 % [facility] Hemoglobin (Bld) [Mass/Vol] 14.3 g/dL 11.9 - 15.1 g/dL [facility] Immature granulocytes (Bld) [#/Vol] 0.04 10*3/uL [facility] Immature granulocytes/100 WBC (Bld) 0 % 0 [facility] Interpretation and review of laboratory results Abnormal [facility] Lymphocytes/100 WBC (Bld) 27 % 24 - 43 % [facility] Lymphocytes/100 WBC (Bld) 2.50 % [facility] MCH (RBC) [Entitic mass] 31.2 pg 25.2 - 33.5 pg [facility] MCHC (RBC) [Mass/Vol] 32.7 g/dL 28.4 - 34.8 g/dL [facility] MCV (RBC) [Entitic vol] 95.4 fL 82.6 - 102.9 fL [facility] Monocytes/100 WBC (Bld) 5 % 3 - 12 % [facility] Monocytes/100 WBC (Bld) 0.44 % [facility] Neutrophils/100 WBC (Bld) 67 % High 36 - 65 % [facility] Nucleated RBC/100 WBC (Bld) [Ratio] 0.0 % 0.0 per 100 WBC [facility] Platelet mean volume (Bld) [Entitic vol] 8.9 fL 8.1 - 13.5 fL [facility] Platelets (Bld) [#/Vol] 264 10*3/uL [facility] RBC (Bld) [#/Vol] 4.58 10*6/uL 3.95 - 5.1 1 m/uL [facility] Segmented neutrophils/100 WBC (Bld) 6.32 % [facility] WBC other (Bld) [#/Vol] 9.4 [facility] CBC with Diffon 10-27-2022 Abs. Basophil 0.03 k/uL Normal 0.00-0.20 [facility] Comment on above: Performed By: #### C DP, LIP, CP #### [facility] [address] [place] [address] [place] [address] Oncology Research Rn: Mauricio Irby MD Abs.Imm.Granulocy te 0.04 k/uL Normal 0.00-0.30 [facility] Comment on above: Performed By: #### C DP, LIP, CP #### [address] [place] [address] Oncology Research Rn: Mauricio Irby MD Abs.Neutrophil (Seg) 6.32 k/uL Normal 1.50-8.10 [facility] Comment on above: Performed By: #### C DP, LIP, CP #### [address] [place], [place] [address] Oncology Research Rn: Mauricio Irby MD Basophils/100 WBC (Bld) 0 % Normal 0-2 [facility] Comment on above: Performed By: #### C DP, LIP, CP #### [address] [place] [address] Oncology Research Rn: Mauricio Irby MD Eosinophils (Bld) [#/Vol] 0.07 10*3/uL Normal 0.00-0.44 [facility] Comment on above: Performed By: #### C DP, LIP, CP #### [address] [place], [facility] Oncology Research Rn: Mauricio Irby MD Eosinophils/100 WBC (Bld) 1 % Normal 1-4 [facility] Comment on above: Performed By: #### C DP, LIP, CP #### [address] [place] [phone] Oncology Research Rn: Mauricio Irby MD Erythrocyte distribution width (RBC) [Ratio] 12.6 % Normal 11.8-14.4 [facility] Comment on above: Performed By: #### C DP LIP, CP #### [facility] [address] [place], [place] [phone] Oncology Research Rn: Mauricio Irby MD Hematocrit (Bld) [Volume fraction] 43.7 % Normal 36.3-47.1 [facility] Comment on above: Performed By: #### C DP, LIP, CP #### [facility] [address] [place] [address] Oncology Research Rn: Mauricio rIby MD Hemoglobin (Bld) [Mass/Vol] 14.3 g/dL Normal 11.9-15.1 [facility] Comment on above: Performed By: #### C JAMES LIP, CP #### [address] [place], [place] [address] Oncology Research Rn: Mauricio Irby MD Immature granulocytes/100 WBC (Bld) 0 % Normal 0 [facility] Comment on above: Performed By: #### C JAMES LIP, CP #### [address] [place] [address] Oncology Research Rn: Mauricio Irby MD Lymphocytes (Bld) [#/Vol] 2.50 10*3/uL Normal 1.10-3.70 [facility] Comment on above: Performed By: #### C DP LIP, CP #### [facility] [address] [place] [address] Oncology Research Rn: Mauricio Irby MD Lymphocytes/100 WBC (Bld) 27 % Normal 24-43 [facility] Comment on above: Performed By: #### C DP, LIP, CP #### [facility] [address] [place], [place] [phone] Oncology Research Rn: Mauricio Irby MD MCH (RBC) [Entitic mass] 31.2 pg Normal 25.2-33.5 [facility] Comment on above: Performed By: #### C JANIE RAMIREZ, CP #### [address] [place], [place] [phone] Oncology Research Rn: Mauricio Irby MD MCHC (RBC) [Mass/Vol] 32.7 g/dL Normal 28.4-34.8 [facility] Comment on above: Performed By: #### C JANIE RAMIREZ, CP #### [address] [place] [address] Oncology Research Rn: Mauricio Irby MD MCV (RBC) [Entitic vol] 95.4 fL Normal 82.6-102.9 [facility] Comment on above: Performed By: #### C JANIE RAMIREZ, CP #### [address] [place], [facility] Oncology Research Rn: Mauricio Irby MD Monocytes (Bld) [#/Vol] 0.44 10*3/uL Normal 0.10-1.20 [facility] Comment on above: Performed By: #### C JANIE RAMIREZ, CP #### [address] [place], [place] [phone] Oncology Research Rn: Mauricio Irby MD Monocytes/100 WBC (Bld) 5 % Normal 3-12 [facility] Comment on above: Performed By: #### C JANIE RAMIREZ, CP #### [address] [place], [place] [phone] Oncology Research Rn: Mauricio Irby MD Neutrophil (Seg) 67 % High 36-65 [facility] Comment on above: Performed By: #### C JANIE RAMIREZ, CP #### [address] [place] [address] Oncology Research Rn: Mauricio Irby MD NRBC Automated 0.0 per 100 WBC Normal 0.0 [facility] Comment on above: Performed By: #### C JAMES LIP, CP #### [address] [place], [facility] Oncology Research Rn: Mauricio Irby MD Platelet mean volume (Bld) [Entitic vol] 8.9 fL Normal 8.1-13.5 [facility] Comment on above: Performed By: #### C JAMES LIP, CP #### [address] [place], [facility] Oncology Research Rn: Mauricio Irby MD Platelets (Bld) [#/Vol] 264 10*3/uL Normal 138-453 [facility] Comment on above: Performed By: #### C JANIE RAMIREZ, CP #### [address] [place], [place] [phone] Oncology Research Rn: Mauricio Irby MD RBC (Bld) [#/Vol] 4.58 10*6/uL Normal 3.95-5.11 [facility] Comment on above: Performed By: #### C JANIE RAMIREZ, CP #### [address] [place], [facility] Oncology Research Rn: Mauricio Irby MD WBC (Bld) [#/Vol] 9.4 10*3/uL Normal 3.5-11.3 [facility] Comment on above: Performed By: #### C JAMES LIP, CP #### [address] [place], [facility]83 Oncology Research Rn: Mauricio Irby MD CT ABDOMEN PELVIS W [...] Ronni Vaughn MD 10/27/22 Final result Normal [facility] CT ABDOMEN PELVIS W IV CONTR AST Additional Contrast? Noneon 10-27-2022 No acute abnormality identified. [facility] EXAMINATION: CT OF THE ABDOMEN [...] findings do not require dedicated imaging follow-up. [facility] Ronni Vaughn MD - 10/27/2022 [...] imaging follow-up. IMPRESSION: No acute abnormality identified. [facility] Radiology Study observation (narrative) [facility] CT ABDOMEN PELVIS W IV CONTR AST Additional Contrast? NoneOrdered By: Ronni Vaughn on 10-27-2022 [facility] Work Phone: Comp Metabolic Profon 2022 Albumin [Mass/Vol] 4.0 g/dL Normal 3.5-5.2 [facility] Comment on above: Performed By: #### C DP, LIP, CP #### [address] [place] [address] Oncology Research Rn: Mauricio Irby MD Albumin/Glob Ratio 1.1 Normal 1.0-2.5 [facility] Comment on above: Performed By: #### C DP LIP, CP #### [address] [place] [address] Oncology Research Rn: Mauricio Irby MD Alkaline Phos 82 U/L Normal 35-104 [facility] [facility] Comment on above: Performed By: #### C DP, LIP, CP #### [address] [place] [id number] Oncology Research Rn: Mauricio Irby MD ALT [Catalytic activity/Vol] 11 U/L Normal 5-33 [facility] Comment on above: Performed By: #### C DP, LIP, CP #### [facility] [address] [place], [place] [id number] Oncology Research Rn: Mauricio Irby MD Anion gap [Moles/Vol] 8 mmol/L Low 9-17 [facility] Comment on above: Performed By: #### C DP, LIP, CP #### [facility] [address] [place], [place] [id number] Oncology Research Rn: Mauricio Irby MD AST [Catalytic activity/Vol] 12 U/L Normal <32 [facility] Comment on above: Performed By: #### C DP LIP, CP #### [facility] [address] [place], [place] [id number] Oncology Research Rn: Mauricio Irby MD Bilirubin [Mass/Vol] 0.2 mg/dL Low 0.3-1.2 [facility] Comment on above: Performed By: #### C JAMES LIP, CP #### [facility] [address] [place] [address] Dr. [place], [place] [id number] Oncology Research Rn: Mauricio Irby MD BUN/CRE Ratio 11 Normal 9-20 [facility] Comment on above: Performed By: #### C DP LIP, CP #### [facility] [address] [place], [place] [id number] Oncology Research Rn: Mauricio Irby MD Calcium [Mass/Vol] 9.2 mg/dL Normal 8.6-10.4 [facility] Comment on above: Performed By: #### C DP, LIP, CP #### [facility] [address] [place], [place] [id number] Oncology Research Rn: Mauricio Irby MD Chloride [Moles/Vol] 102 mmol/L Normal 98-107 [facility] Comment on above: Performed By: #### C JANIE RAMIREZ, CP #### [facility] [address] [place] [address] Oncology Research Rn: Mauricio Irby MD CO2 [Moles/Vol] 27 mmol/L Normal 20-31 [facility] Comment on above: Performed By: #### C JANIE RAMIREZ, CP #### [facility] [address] [place] [address] Oncology Research Rn: Mauricio Irby MD Creatinine [Mass/Vol] 0.7 mg/dL Normal 0.5-0.9 [facility] Comment on above: Performed By: #### C JANIE RAMIREZ, CP #### [facility] [address] [place] [address] Oncology Research Rn: Mauricio Irby MD GFR/1.73 sq M.predicted among non-blacks MDRD (S/P/Bld) [Vol rate/Area] mL/min/{1.73_m2} Normal >60 [facility] Comment on above: Result Comment: These results [...] By: #### C JANIE RAMIREZ, CP #### [facility] [address] [place] [address] Oncology Research Rn: Mauricio Irby MD Glucose [Mass/Vol] 134 mg/dL High 70-99 [facility] Comment on above: Performed By: #### C JANIE RAMIREZ, CP #### [facility] [address] [place] [address] Oncology Research Rn: Mauricio Irby MD Potassium [Moles/Vol] 4.1 mmol/L Normal 3.7-5.3 [facility] Comment on above: Performed By: #### C DP LIP, CP #### [facility] [address] [place], [place] [id number] Oncology Research Rn: Mauricio Irby MD Protein [Mass/Vol] 7.7 g/dL Normal 6.4-8.3 [facility] Comment on above: Performed By: #### C JAMES LIP, CP #### [facility] [address] [place], [place] [id number] Oncology Research Rn: Mauricio Irby MD Sodium [Moles/Vol] 137 mmol/L Normal 135-144 [facility] Comment on above: Performed By: #### C JANIE RAMIREZ, CP #### [facility] [address] [place], [place] [id number] Oncology Research Rn: Mauricio Irby MD Urea nitrogen [Mass/Vol] 8 mg/dL Normal 6-20 [facility] Comment on above: Performed By: #### C JAMES LIP, CP #### [facility] [address] [place] [address] Oncology Research Rn: Mauricio Irby MD Comprehensive Metabolic [facility] 10-27-2022 Albumin [Mass/Vol] 4.0 g/dL 3.5 - 5.2 g/dL [facility] Albumin/Globulin [Mass ratio] 1.1 {ratio} 1.0 - 2.5 [facility] ALP [Catalytic activity/Vol] 82 U/L 35 - 104 U/L [facility] ALT [Catalytic activity/Vol] 11 U/L 5 - 33 U/L [facility] Anion gap [Moles/Vol] 8 mmol/L Low 9 - 17 mmol/L [facility] AST [Catalytic activity/Vol] 12 U/L NINF - 32 U/L [facility] Bilirubin [Mass/Vol] 0.2 mg/dL Low 0.3 - 1.2 mg/dL [facility] Calcium [Mass/Vol] 9.2 mg/dL 8.6 - 10.4 mg/dL [facility] Chloride [Moles/Vol] 102 mmol/L 98 - 107 mmol/L [facility] CO2 [Moles/Vol] 27 mmol/L 20 - 31 mmol/L [facility] Creatinine [Mass/Vol] 0.7 mg/dL 0.5 - 0.9 mg/dL [facility] GFR/1.73 sq M.predicted MDRD (S/P/Bld) [Vol rate/Area] - PINF [facility] Comment on above: These results are not [...] 134 mg/dL High 70 - 99 mg/dL [facility] Potassium [Moles/Vol] 4.1 mmol/L 3.7 - 5.3 mmol/L [facility] Protein [Mass/Vol] 7.7 g/dL 6.4 - 8.3 g/dL [facility] Sodium [Moles/Vol] 137 mmol/L 135 - 144 mmol/L [facility] Urea nitrogen [Mass/Vol] 8 mg/dL 6 - 20 mg/dL [facility] Urea nitrogen/Creatini ne [Mass ratio] 11 mg/mg 9 - 20 [facility] Lactic Acidon 10-27-2022 Lactate (BldV) [Moles/Vol] 1.6 mmol/L 0.5 - 2.2 mmol/L [facility] Lactate [Moles/Vol] 1.6 mmol/L Normal 0.5-2.2 [facility] Comment on above: Performed By: #### C JANIE RAMIREZ CP #### [facility] [address] [place] [address] Oncology Research Rn: Mauricio Irby MD Lipaseon 09-18-2023 Lipase [Catalytic activity/Vol] 67 U/L High 13 - 60 U/L [facility] Lipase [Catalytic activity/Vol] 67 U/L High 13-60 [facility] Comment on above: Performed By: #### C DP, LIP, CP #### [facility] [address] [place] [address] Oncology Research Rn: Mauricio Irby MD No Panel Informationon 10-27 Interpretation and review of laboratory results Abnormal [facility] Urinalysis w/ Microon 2022 Bacteria 1+ Abnormal NONE [facility] Comment on above: Performed By: #### U AMIC #### [facility] [address] [place], [place] [id number] Oncology Research Rn: Mauricio Irby MD Bilirubin, SemiQt,Ur Negative Normal NEG [facility] Comment on above: Performed By: #### U AMIC #### [facility] [address] [place], [place] [id number] Oncology Research Rn: Mauricio Irby MD Blood, Urine Negative Normal NEG [facility] Comment on above: Performed By: #### U AMIC #### [facility] [address] [place], [place] [id number] Oncology Research Rn: Mauricio Irby MD Clarity (U) Clear Normal CLEAR [facility] Comment on above: Performed By: #### U AMIC #### [facility] [address] [place], [place] [id number] Oncology Research Rn: Mauricio Irby MD Color (U) Yellow Normal YEL [facility] Comment on above: Performed By: #### U AMIC #### [facility] [address] [place], [place] [id number] Oncology Research Rn: Mauricio Irby MD Epithelial cells LM Ql (Urine sed) 10 TO 20 Normal 0-25 [facility] Comment on above: Performed By: #### U AMIC #### [facility] [address] [place], [place] [id number] Oncology Research Rn: Mauricio Irby MD Glucose Ql (U) Negative Normal NEG [facility] Comment on above: Performed By: #### U AMIC #### [facility] [address] [place] [address] Dr. [place], [place] [id number] Oncology Research Rn: Mauricio Irby MD Ketones Ql (U) Negative Normal NEG [facility] Comment on above: Performed By: #### U AMIC #### [facility] [address] [place] [address] Dr. [place], [place] [id number] Oncology Research Rn: Mauricio Ibry MD Leukocyte esterase Test strip Ql (U) Negative Normal NEG [facility] Comment on above: Performed By: #### U AMIC #### [facility] [address] [place] [address] Dr. [place], [place] [phone] Oncology Research Rn: Mauricio Irby MD Nitrite,Ur Negative Normal NEG [facility] Comment on above: Performed By: #### U AMIC #### [facility] [address] [place] [address] [place] [address] Oncology Research Rn: Mauricio Irby MD PH,Ur 6.0 Normal 5.0-9.0 [facility] Comment on above: Performed By: #### U AMIC #### [facility] [address] [place] [address] [place] [address] Oncology Research Rn: Mauricio Irby MD Protein Ql (U) Negative Normal NEG [facility] Comment on above: Performed By: #### U AMIC #### [facility] [address] [place] [address] Dr. [place], [place] [phone] Oncology Research Rn: Mauricio Irby MD Spec. [place],Ur 1.010 Normal 1.010-1.020 [facility] Comment on above: Performed By: #### U AMIC #### [facility] [address] [place] [address] Dr. [place], [place] [id number] Oncology Research Rn: Mauricio Irby MD Urine RBC's 0 TO 2 Normal 0-2 [facility] Comment on above: Performed By: #### U AMIC #### [facility] [address] [place], [place] [id number] Oncology Research Rn: Mauricio Irby MD Urine WBC's 0 TO 2 Normal 0-5 [facility] Comment on above: Performed By: #### U AMIC #### [facility] [address] [place], [place] [id number] Oncology Research Rn: Mauricio Irby MD Urobilinogen,Ur Normal Normal 0.0-1.0 [facility] Comment on above: Performed By: #### U AMIC #### [facility] [address] [place] [address] [place], [place] [id number] Oncology Research Rn: Mauricio Irby MD Urinalysis with Microscopico n 10-27-2022 Bacteria LM Ql (Urine sed) 1+ Abnormal None [facility] Bilirubin Ql (U) Negative NEGATIVE [facility] Clarity (U) Clear Clear [facility] Color (U) Yellow Yellow [facility] Epithelial cells LM.HPF (Urine sed) [#/Area] 10 TO 20 [facility] Glucose Test strip (U) [Mass/Vol] Negative NEGATIVE mg/dL [facility] Hemoglobin Auto test strip Ql (U) Negative NEGATIVE [facility] Interpretation and review of laboratory results Abnormal [facility] Ketones (U) [Mass/Vol] Negative NEGATIVE mg/dL [facility] Leukocyte esterase Test strip Ql (U) Negative NE[facility]IVE [facility] Nitrite Ql (U) Negative NEGATIVE [facility] pH (U) 6.0 [pH] 5.0 - 9.0 [facility] Protein (U) [Mass/Vol] Negative NEGATIVE mg/dL [facility] RBC LM.HPF (Urine sed) [#/Area] 0 TO 2 [facility] Specific gravity (U) [Rel density] 1.010 1.010 - 1.020 [facility] Urobilinogen Qn (U) Normal 0.0 - 1.0 EU/dL [facility] WBC LM.HPF (Urine sed) [#/Area] 0 TO 2 [facility] XR ABD FLAT UP_PA Joyce 03-25 XR [...] bowel gas pattern Electronically authenticated by: MAURICIO LYOSN Date: 2022-03-25 08:01 Normal [facility] AMYLASEon 03-24-2022 Amylase [Catalytic activity/Vol] 36 U/L Normal 25-115 [facility] Comment on above: Performed By: #### C MP, DARION, LIPA #### [facility] [address] [place] [address] Dr. Melecio Chadwick CBC AUTO DIFFon 03-24-2022 BASO # 0.0 103/ul Normal 0.0-0.1 [facility] Comment on above: Performed By: #### C BC #### [facility] [address] [place] [address] Dr. Melecio Chadwick Basophils/100 WBC (Bld) 0.2 % Normal 0.2-2.0 [facility] Comment on above: Performed By: #### C BC #### [facility] [address] [place] [address] Dr. Melecio Chadwick EO # 0.1 103/ul Normal 0.0-0.7 [facility] Comment on above: Performed By: #### C BC #### [facility] [address] [place] [address] Dr. Melecio Chadwick Eosinophils/100 WBC (Bld) 1.1 % Normal 0.9-7.0 [facility] Comment on above: Performed By: #### C BC #### [facility] [address] [place] [address] Dr. Melecio Chadwick Erythrocyte distribution width (RBC) [Ratio] 12.3 % Normal 11.0-15.0 [facility] Comment on above: Performed By: #### C BC #### [facility] [address] [place] [address] Dr. Melecio Chadwick Hematocrit (Bld) [Volume fraction] 42.5 % Normal 36.0-48.0 [facility] Comment on above: Performed By: #### C BC #### [facility] [address] [place] [address] Dr. Melecio Chadwick Hemoglobin (Bld) [Mass/Vol] 14.3 g/dL Normal 12.0-16.0 [facility] Comment on above: Performed By: #### C BC #### [facility] [address] [place] [address] Dr. Melecio Chadwick IG # 0.03 10e3/ul Normal 0.00-0.03 [facility] Comment on above: Performed By: #### C BC #### [facility] [address] [place] [address] Dr. Melecio Chadwick IG % 0.3 % Normal 0.0-0.5 [facility] Comment on above: Performed By: #### C BC #### [facility] [address] [place] [address] Dr. Melecio Chadwick LYMPH # 3.1 103/ul Normal 1.2-3.8 [facility] Comment on above: Performed By: #### C BC #### [facility] [address] [place] [address] Dr. Melecio Chadwick Lymphocytes/100 WBC (Bld) 29.8 % Normal 20.5-60.0 [facility] Comment on above: Performed By: #### C BC #### [facility] [address] [place] [address] Dr. Melecio Chadwick MANUAL DIFF REQ NO Normal [facility] Comment on above: Performed By: #### C BC #### [facility] [address] [address] [address] Melecio Chadwick MCH (RBC) [Entitic mass] 31.0 pg Normal 26.7-34.0 [facility] Comment on above: Performed By: #### C BC #### [facility] [address] [place] [address] Dr. Melecio Chadwick MCHC (RBC) [Mass/Vol] 33.6 g/dL Normal 29.9-35.2 [facility] Comment on above: Performed By: #### C BC #### [facility] [address] [place] [address] Dr. Melecio Chadwick MCV (RBC) [Entitic vol] 92.2 fL Normal 81.0-99.0 [facility] Comment on above: Performed By: #### C BC #### [facility] [address] [place] [address] Dr. Melecio Chadwick MONO # 0.6 103/ul Normal 0.3-0.8 [facility] Comment on above: Performed By: #### C BC #### [facility] [address] [place] [address] Dr. Melecio Chadwick Monocytes/100 WBC (Bld) 5.8 % Normal 1.7-12.0 [facility] Comment on above: Performed By: #### C BC #### [facility] [address] [place] [address] Dr. Melecio Chadwick NEUT # 6.5 103/ul Normal 1.4-6.5 [facility] Comment on above: Performed By: #### C BC #### [facility] [address] [place] [address] Dr. Melecio Chadwick Neutrophils/100 WBC (Bld) 62.8 % Normal 43.0-75.0 [facility] Comment on above: Performed By: #### C BC #### [facility] [address] [place] [address] Dr. Melecio Chadwick Platelet mean volume (Bld) [Entitic vol] 9.0 fL Critically low 9.5-13.5 [facility] Comment on above: Performed By: #### C BC #### [facility] [address] [place] [address] Dr. Melecio Chadwick PLT 268 103/ul Normal 150-450 [facility] Comment on above: Performed By: #### C BC #### [facility] [address] [place] [address] Dr. Melecio Chadwick RBC 4.61 106/ul Normal 4.20-5.40 [facility] Comment on above: Performed By: #### C BC #### [facility] [address] [place] [address] Dr. Melecio Chadwick WBC 10.4 103/ul Normal 4.0-11.0 [facility] Comment on above: Performed By: #### C BC #### [facility] [address] [place] [address] Dr. Melecio Chadwick LIPASEon 03-24-2022 Lipase [Catalytic activity/Vol] 114.0 U/L Normal 73.0-393.0 [facility] Comment on above: Performed By: #### C MP DARION, LIPA #### [facility] [address] [place] [address] Dr. Melecio Chadwick PROF 14(COMP METB)on 023 Albumin [Mass/Vol] 3.5 g/dL Normal 3.4-5.0 [facility] Comment on above: Performed By: #### C MP, DARION, LIPA #### [facility] [address] [place] [address] Dr. Melecio Chadwick Albumin/Globulin [Mass ratio] 0.8 {ratio} Normal [facility] Comment on above: Performed By: #### C MP, DARION, LIPA #### [facility] [address] [place] [address] Dr. Melecio Chadwick ALP [Catalytic activity/Vol] 85 U/L Normal 46-116 [facility] Comment on above: Performed By: #### C MP, DARION, LIPA #### [facility] [address] [place] [address] Dr. Melecio Chadwick ALT [Catalytic activity/Vol] 21 U/L Normal 14-59 [facility] Comment on above: Performed By: #### C MP, DARION, LIPA #### [facility] [address] [place] [address] Dr. Melecio Chadwick Anion gap [Moles/Vol] 11.6 mmol/L Normal [facility] Comment on above: Performed By: #### C MP, DARION, LIPA #### [facility] [address] [place] [address] Dr. Melecio Chadwick AST [Catalytic activity/Vol] 15 U/L Normal 15-37 [facility] Comment on above: Performed By: #### C MP, DARION, LIPA #### [facility] [address] [place] [address] Dr. Melecio Chadwick Bilirubin [Mass/Vol] 0.3 mg/dL Normal 0.2-1.0 [facility] Comment on above: Performed By: #### C MP, DARION, LIPA #### [facility] [address] [place] [address] Dr. Melecio Chadwick Calcium [Mass/Vol] 8.8 mg/dL Normal 8.5-10.1 [facility] Comment on above: Performed By: #### C MP, DARION, LIPA #### [facility] [address] [place] [address] Dr. Melecio Chadwick Chloride [Moles/Vol] 102 mmol/L Normal 98-107 [facility] Comment on above: Performed By: #### C MP, DARION, LIPA #### [facility] [address] [place] [address] Dr. Melecio Chadwick CO2 [Moles/Vol] 28.5 mmol/L Normal 21.0-32.0 [facility] Comment on above: Performed By: #### C MP, DARION, LIPA #### [facility] [address] [place] [address] Dr. Melecio Chadwick Creatinine [Mass/Vol] 0.76 mg/dL Normal 0.55-1.02 [facility] Comment on above: Performed By: #### C MP, DARION, LIPA #### [facility] [address] [place] [address] Dr. Melecio Chadwick EGFR-AF [place] >60 Normal >=60 [facility] Comment on above: Performed By: #### C DARION LOGAN, LIPA #### [facility] [address] [place] [address] Dr. Melecio Chadwick EGFR-NON AF [place] >60 Normal >=60 [facility] Comment on above: Performed By: #### C MP, DARION, LIPA #### [facility] [address] [place] [address] Dr. Melecio Chadwick Globulin (S) [Mass/Vol] 4.2 g/dL Normal [facility] Comment on above: Performed By: #### C DARION LOGAN, LIPA #### [facility] [address] [place] [address] Dr. Melecio Chadwick Glucose [Mass/Vol] 97 mg/dL Normal 74-106 [facility] Comment on above: Performed By: #### C DOREEN DARION, LIPA #### [facility] [address] [place] [address] Dr. Melecio Chadwick Potassium [Moles/Vol] 4.1 mmol/L Normal 3.5-5.1 [facility] Comment on above: Performed By: #### C DARION LOGAN, LIPA #### [facility] [address] [place] [address] Dr. Melecio Chadwick Protein [Mass/Vol] 7.7 g/dL Normal 6.4-8.2 [facility] Comment on above: Performed By: #### C DOREEN DARION, LIPA #### [facility] [address] [place] [address] Dr. Melecio Chadwick Sodium [Moles/Vol] 138 mmol/L Normal 136-145 [facility] Comment on above: Performed By: #### C DOREEN DARION, LIPA #### [facility] [address] [place] [address] Dr. Melecio Chadwick Urea nitrogen [Mass/Vol] 9.0 mg/dL Normal 7.0-18.0 [facility] Comment on above: Performed By: #### C DOREEN DARION, LIPA #### [facility] [address] [place] [address] Dr. Melecio Chadwick Urea nitrogen/Creatini ne [Mass ratio] 11.8 mg/mg Normal [facility] Comment on above: Performed By: #### C MP, DARION, LIPA #### [facility] [address] [place] [address] Dr. Melecio Chadwick AMYLASEon 03-19-2022 Amylase [Catalytic activity/Vol] 44 U/L Normal 25-115 [facility] Comment on above: Performed By: #### A MY, CMP, LIPA #### [facility] [address] [place] [address] Dr. Mleecio Chadwick CBC AUTO DIFFon 03-19-2022 BASO # 0.0 103/ul Normal 0.0-0.1 [facility] Comment on above: Performed By: #### C BC #### [facility] [address] [place] [address] Dr. Melecio Chadwick Basophils/100 WBC (Bld) 0.2 % Normal 0.2-2.0 [facility] Comment on above: Performed By: #### C BC #### [facility] [address] [place] [address] Dr. Melecio Chadwick EO # 0.1 103/ul Normal 0.0-0.7 [facility] Comment on above: Performed By: #### C BC #### [facility] [address] [place] [address] Dr. Melecio Chadwick Eosinophils/100 WBC (Bld) 1.5 % Normal 0.9-7.0 [facility] Comment on above: Performed By: #### C BC #### [facility] [address] [place] [address] Dr. Melecio Chadwick Erythrocyte distribution width (RBC) [Ratio] 12.4 % Normal 11.0-15.0 [facility] Comment on above: Performed By: #### C BC #### [facility] [address] [place] [address] Dr. Melecio Chadwick Hematocrit (Bld) [Volume fraction] 41.8 % Normal 36.0-48.0 [facility] Comment on above: Performed By: #### C BC #### [facility] [address] [place] [address] Dr. Melecio Chadwick Hemoglobin (Bld) [Mass/Vol] 13.2 g/dL Normal 12.0-16.0 [facility] Comment on above: Performed By: #### C BC #### [facility] [address] [place] [address] Dr. Melecio Chadwick IG # 0.02 10e3/ul Normal 0.00-0.03 [facility] Comment on above: Performed By: #### C BC #### [facility] [address] [place] [address] Dr. Melecio Chadwick IG % 0.2 % Normal 0.0-0.5 [facility] Company Comment on above: Performed By: #### C BC #### [facility] [address] [place] [address] Dr. Melecio Chadwick LYMPH # 3.3 103/ul Normal 1.2-3.8 [facility] Comment on above: Performed By: #### C BC #### [facility] [address] [place] [address] Dr. Melecio Chadwick Lymphocytes/100 WBC (Bld) 38.0 % Normal 20.5-60.0 [facility] Comment on above: Performed By: #### C BC #### [facility] [address] [place] [address] Dr. Melecio Chadwick MANUAL DIFF REQ NO Normal The [facility] Comment on above: Performed By: #### C BC #### [facility] [address] [place] [address] Dr. Melecio Chadwick MCH (RBC) [Entitic mass] 30.9 pg Normal 26.7-34.0 [facility] Comment on above: Performed By: #### C BC #### [facility] [address] [place] [address] Dr. Melecio Chadwick MCHC (RBC) [Mass/Vol] 31.6 g/dL Normal 29.9-35.2 [facility] Comment on above: Performed By: #### C BC #### [facility] [id number] Melecio Chadwick MCV (RBC) [Entitic vol] 97.9 fL Normal 81.0-99.0 [facility] Comment on above: Performed By: #### C BC #### [facility] [address] [place] [address] Dr. Melecio Chadwick MONO # 0.4 103/ul Normal 0.3-0.8 [facility] Comment on above: Performed By: #### C BC #### [facility] [address] [place] [address] Dr. Melecio Chadwick Monocytes/100 WBC (Bld) 4.6 % Normal 1.7-12.0 [facility] Comment on above: Performed By: #### C BC #### [facility] [address] [place] [address] Dr. Melecio Chadwick NEUT # 4.8 103/ul Normal 1.4-6.5 [facility] Comment on above: Performed By: #### C BC #### [facility] [address] [place] [address] Dr. Melecio Chadwick Neutrophils/100 WBC (Bld) 55.5 % Normal 43.0-75.0 [facility] Comment on above: Performed By: #### C BC #### [facility] [address] [place] [address] Dr. Melecio Chadwick Platelet mean volume (Bld) [Entitic vol] 9.7 fL Normal 9.5-13.5 [facility] Comment on above: Performed By: #### C BC #### [facility] [address] [place] [address] Dr. Melecio Chadwick PLT 258 103/ul Normal 150-450 [facility] Comment on above: Performed By: #### C BC #### [facility] [address] [place] [address] Dr. Melecio Chadwick RBC 4.27 106/ul Normal 4.20-5.40 [facility] Comment on above: Performed By: #### C BC #### [facility] [address] [place] [address] Dr. Melecio Chadwick WBC 8.7 103/ul Normal 4.0-11.0 [facility] Comment on above: Performed By: #### C BC #### [facility] [address] [place] [address] Dr. Melecio Chadwick LIPASEon 03-19-2022 Lipase [Catalytic activity/Vol] 119.0 U/L Normal 73.0-393.0 [facility] Comment on above: Performed By: #### A MY, CMP, LIPA #### [facility] [address] [place] [address] Dr. Melecio Chadwick PROF 14(COMP METB)on 023 Albumin [Mass/Vol] 3.2 g/dL Critically low 3.4-5.0 [facility] Comment on above: Performed By: #### A MY, CMP, LIPA #### [facility] [address] [place] [address] Dr. Melecio Chadwick Albumin/Globulin [Mass ratio] 0.9 {ratio} Normal [facility] Comment on above: Performed By: #### A MY, CMP, LIPA #### [facility] [address] [place] [address] Dr. Melecio Chadwick ALP [Catalytic activity/Vol] 76 U/L Normal 46-116 [facility] Comment on above: Performed By: #### A MY, CMP, LIPA #### [facility] [address] [place] [address] Dr. Melecio Chadwick ALT [Catalytic activity/Vol] 18 U/L Normal 14-59 [facility] Comment on above: Performed By: #### A MY, CMP, LIPA #### [facility] [address] [place] [address] Dr. Melecio Chadwick Anion gap [Moles/Vol] 11.6 mmol/L Normal [facility] Comment on above: Performed By: #### A MY, CMP, LIPA #### [facility] [address] [place] [address] Dr. Melecio Chadwick AST [Catalytic activity/Vol] 14 U/L Critically low 15-37 [facility] Comment on above: Performed By: #### A MY, CMP, LIPA #### [facility] [address] [place] [address] Dr. Melecio Chadwick Bilirubin [Mass/Vol] 0.2 mg/dL Normal 0.2-1.0 [facility] Comment on above: Performed By: #### A MY, CMP, LIPA #### [facility] [address] [place] [address] Dr. Melecio Chadwick Calcium [Mass/Vol] 7.9 mg/dL Critically low 8.5-10.1 [facility] Comment on above: Performed By: #### A MY, CMP, LIPA #### [facility] [address] [place] [address] Dr. Melecio Chadwick Chloride [Moles/Vol] 105 mmol/L Normal 98-107 [facility] Comment on above: Performed By: #### A MY, CMP, LIPA #### [facility] [address] [place] [address] Dr. Melecio Chadwick CO2 [Moles/Vol] 25.8 mmol/L Normal 21.0-32.0 The [facility] Comment on above: Performed By: #### A MY, CMP, LIPA #### [facility] [address] [place] [address] Dr. Melecio Chadwick Creatinine [Mass/Vol] 0.67 mg/dL Normal 0.55-1.02 [facility] Comment on above: Performed By: #### A MY, CMP, LIPA #### [facility] [address] [place] [address] Dr. Melecio Chadwick EGFR-AF [place] >60 Normal >=60 The [facility] Comment on above: Performed By: #### A MY, CMP, LIPA #### [facility] [address] [place] [address] Dr. Melecio Chadwick EGFR-NON AF [place] >60 Normal >=60 [facility] Comment on above: Performed By: #### A MY, CMP, LIPA #### [facility] [address] [place] [address] Dr. Melecio Chadwick Globulin (S) [Mass/Vol] 3.6 g/dL Normal [facility] Comment on above: Performed By: #### A MY, CMP, LIPA #### [facility] [address] [place] [address] Dr. Melecio Chadwick Glucose [Mass/Vol] 95 mg/dL Normal 74-106 [facility] Comment on above: Performed By: #### A MY, CMP, LIPA #### [facility] [address] [place] [address] Dr. Melecio Chadwick Potassium [Moles/Vol] 3.4 mmol/L Critically low 3.5-5.1 [facility] Comment on above: Performed By: #### A MY CMP, LIPA #### [facility] [address] [place] [address] Dr. Melecio Chadwick Protein [Mass/Vol] 6.8 g/dL Normal 6.4-8.2 [facility] Comment on above: Performed By: #### A MY CMP, LIPA #### [facility] [address] [place] [address] Dr. Melecio Chadwick Sodium [Moles/Vol] 139 mmol/L Normal 136-145 [facility] Comment on above: Performed By: #### A MY CMP, LIPA #### [facility] [address] [place] [address] Dr. Melecio Chadwick Urea nitrogen [Mass/Vol] 6.0 mg/dL Critically low 7.0-18.0 [facility] Comment on above: Performed By: #### A MY, CMP, LIPA #### [facility] [address] [place] [address] Dr. Melecio Chadwick Urea nitrogen/Creatini ne [Mass ratio] 9.0 mg/mg Normal [facility] Comment on above: Performed By: #### A MY CMP, LIPA #### [facility] [address] [place] [address] Dr. Melecio Chadwick Intraoperative Noteon 2017 Intraoperative Note [id number]#1.00OTGTIFF Normal [facility] Intraoperative Noteon 2017 Intraoperative Note [id number]#1.00[facility] History and Physicalon 01-23 History and Physical [id number]#1.00[facility] Provider Orderson 01-23-2017 Protein [id number]#1.00[facility] Coding Summaryon 12-08-2016 Coding Summary CODING DATE: 017 [facility] STATUS: Home PAYOR: Commercial Insurance APC DESCRIPTION 5113 Level 3 Musculoskeletal Procedures ADMIT DX: REASON FOR VISIT DX: S83.242A Other tear of medial meniscus, current injury, left knee, initial encounter FINAL DX: PRINCIPAL: M22.42 Chondromalacia patellae, left knee SECONDARY: M94.9 Disorder of cartilage, unspecified PYMT PROC APC STAT DESCRIPTION DOCTOR NAME DATE 94872 5113 J1 Arthroscopy, knee, ARIES HARO 12/05/2016 [...] Tamanna Ambrocio Date Saved: 12/08/2016 03:51 pm [facility] Consent Formson 12-08-2016 Consent Forms [id number]#1.00[facility] Discharge Instructionson Discharge Instructions [id number]#[address] [place] [address] Intraoperative Noteon 2016 Intraoperative Note [id number]#1.00[facility] MAGR PACU Recordon 7 MAGR PACU Record MAGR PACU Record [facility] Primary Physician: ARIES HARO Finalized Date/Time: 12/08/16 10:49:55 Pt. Name: TAMY WALLS/Sex: 1980 FEMALE Med Rec #: [id number] Physician: ARIES HARO Financial #: [id number] Pt. Type: D Room/Bed: / Admit/Disch: 12/05/16 08:43:35 - 12/05/16 14:02:00 Institution: PACU Case Times MAGR Entry 1 In PACU I 12/05/16 11:45:00 Ready for PACU I 12/05/16 12:40:00 Discharge Discharge from PACU 12/05/16 12:40:00 I Last Modified By: Sana Jarivs RN 12/08/16 10:49:52 General Comments: Awake, aware, vital signs stable on O2 at 2 L min per nc.Respiration deep and regular. ECG shows RSR. Denying discomfort. Toes of surgical foot warm, pink, with immediate capillary refill. IV infusing well. Discharge to nursing unit per Dr Briggs using discharge criteria. Finalized By: Sana Jarvis RN Document Signatures Signed By: Sana Jarvis RN 12/08/16 10:49 [facility] Preoperative Recordon 1 [facility] Preoperative Record [facility] Pre-Op Record Summary Primary Physician: ARIES HARO Finalized Date/Time: 12/08/16 10:20:04 Pt. Name: TAMY WALLS/Sex: 1980 FEMALE Med Rec #: [id number] Physician: ARIES HARO Financial #: [id number] Pt. Type: D Room/Bed: / Admit/Disch: 12/05/16 [...] Signed By: Marium Ledbetter RN 12/08/16 10:20 [facility] Medication Managementon 11-11 Medication Management [id number]#1.00OTGTIFF [facility] Telemetry Stripson 7 Telemetry Strips [id number]#1.00OTGTIFF [facility] Anesthesia Noteon 12-05-2016 Anesthesia Note Patient: RUFUS WALLS : 36 years Sex: FEMALE : [birth year]Associated Diagnoses: NoneAuthor: Bunny Briggs MDPostoperative InformationPost Operative Note: Operative Day.Anesthetic utilized: General.Health StatusAllergies:Allergic Reactions (All)Severity Not DocumentedDilaudid- Angio-oedema.Percocet 5/325- Nausea & vomiting.Problem list (past medical history):All ProblemsAnxiety / SNOMED CT 98674458 / ConfirmedPhysical ExaminationVS/MeasurementsV ital Signs (last 24 [...] on: 12/05/2016 12:07 EDT] Bunny Briggs MD [facility] Anesthesia Note Patient: RUFUS WALLS [...] (past medical history):All ProblemsAnxiety / SNOMED CT 82676171 / ConfirmedHistoriesFamily History:No family history items have been selected or recorded.Procedure history:Hysterectomy (550700008) in 2014 at 33 Years.Comments:11/28/2016 10:07 - Shayy Sylvester RNpartialAppendectomy (653678664) in 2013 at 32 Years.Tubal ligation (512862638) in 2004 at 24 Years.Cholecystectomy (67351591) in 2000 at 19 Years.Ear care (146233655).Comments:2016 10:06 - Shayy Sylvester RNtubes [id number] History Alcohol Assessment Use: Never. Tobacco Assessment former smoker quit 2 yrs ago Tobacco Use:. Substance Abuse Assessment Substance use: Never..Social & Psychosocial SrqyvdVgygblh20/20/2017 Alcohol Use: NeverSubstance Abuse11/28/2016 Substance use: TkjlnHcsxarh44/20/2017 Smoking tobacco use: former smoker quit 2 [...] on: 12/05/2016 10:25 EDT] Bunny Briggs MD [facility] MAGR Intraoperative Recordon 12-05-2016 MAGR Intraoperative Record MAGR Intra-Op Record Summary Primary Physician: ARIES HARO Finalized Date/Time: 12/05/16 11:52:54 Pt. Name: TAMY WALLS Cliff JaimeB./Sex: 1980 FEMALE Med Rec #: [id number] Physician: ARIES HARO Financial #: [id number] Pt. Type: D Room/Bed: / Admit/Disch: 12/05/16 [...] Role Performed Surgeon - Primary Anesthesiologist of County Coroner Record Time In 12/05/16 10:37:00 12/05/16 10:37:00 12/05/16 10:37:00 Time Out 12/05/16 11:30:00 12/05/16 11:48:00 12/05/16 11:48:00 Procedure Arthroscopy Knee(Left) Arthroscopy Knee(Left) Arthroscopy Knee(Left) Last Modified By: Leslie Tolentino RN, Stephanie RN Sauer, Stephanie RN 12/05/16 11:52:02 12/05/16 11:52:02 12/05/16 11:52:02 Entry 4 Entry 5 Entry 6 Case Attendee Ro Morrison RN, Leigh-Ann CST Nikolaus, Linda M Role Performed [facility] Coroner Flame Channeler Scrub Personnel Time In 12/05/16 10:37:00 12/05/16 [...] Signed By: Leslie Tolentino RN 12/05/16 11:52 [facility] MAGR Postoperative Recordon 12-05-2016 MAGR Postoperative Record MAGR Phase II Record Summary Primary Physician: ARIES HARO Finalized Date/Time: 12/05/16 14:50:11 Pt. Name: TAMY WALLS /Sex: 1980 FEMALE Med Rec #: [id number] Physician: ARIES HARO Financial #: [id number] Pt. Type: D Room/Bed: / Admit/Disch: 12/05/16 [...] 1320.....care assumed from Og Jarvis RN...report received 6772 - discharge instructions reviewed with patient, daughter, and grandmother. All verbalize understanding. Copy of instructions sent home with patient along with prescription for percocet......discharged per wheelchair to private auto driven by daughter for home Finalized By: Sana Jarvis RN Document Signatures Signed By: Sana Jarvis RN 12/05/16 14:50 [facility] Progress Note - Nurseon 10-2 Progress Note - Nurse Spoke with pt and informed her to be here at 9am and NPO after MN, she verbalizes understanding.[Electronical ly Signed on: 12/04/2016 09:42 EDT] Shayy Sylvester RN[Verified on: 12/04/2016 09:42 EDT] Shayy Sylvester RN [facility] Vital Signs Date Time Vital Sign Value Performing Clinician Faci lity 10-27-2022 20:03-0400 Diastolic blood pressure 76 mm[Hg] Anna Callahan MD Work Phone: [facility] 10-27-2022 20:03-0400 SaO2% (BldA) [Mass fraction] 98 % Anna Callahan MD Work Phone: [facility] 10-27-2022 20:03-0400 Systolic blood pressure 126 mm[Hg] Anna Callahan MD Work Phone: [facility] 10-27-2022 15:17-0400 Body weight 104.33 kg Anna Callahan MD Work Phone: [facility] 10-27-2022 15:15-0400 Body temperature 97.9 [degF] Anna Callahan MD Work Phone: [facility] 10-27-2022 15:15-0400 Heart rate 100 /min Anna Callahan MD Work Phone: [facility] 10-27-2022 15:15-0400 Respiratory rate 18 /min Anna Callahan MD Work Phone: [facility] Encounters Encounter Date Encounter Type Care Provider Facility Start: 10-27-2022 End: 10-27-2022 Emergency department patient visit Anna Callahan MD Work Phone: [facility] ED Comment on above: Left flank pain (Berenice oreilly Dx) Start: 04-21-2022 End: 04-22-[address] FRANCIA RODRIGUEZ . Facility:[facility] Start: 03-24-2022 End: 03-25-[address] FRANCIA RODRIGUEZ . Facility:[facility] Start: 03-19-2022 End: 03-19-[address] FRANCIA RODRIGUEZ . Facility: Start: 12-05-2016 End: 12-05-2016 Patient encounter [facility] Facility:[facility] Start: 11-29-2016 End: 11-29-2016 Patient encounter [facility] Facility:[facility] Procedures Date Procedure Procedure Detail Performing Clinician Start: 10-27-2022 Ct abdomen & pelvis w/contrast material Tyler Galarza PA-C Work Phone: Start: 10-27-2022 Urnls dip stick/tabl et reagent auto microscopy Anna Callahan MD Work Phone: Start: 10-27-2022 Comprehensive metabo lic panel Anna Callahan MD Work Phone: Plan of Treatment Date Care Activity Detail Author Start: 09-09-2022 Influenza vaccination Flu vaccine (# 1) [facility] Start: 2021 Lipid panel Lipids [facility] Start: 05-01-2011 Screening for malign ant neoplasm of cervix [facility] Start: 2002 Screening for malign ant neoplasm of cervix Pap smear [facility] Start: 2000 DTaP/Tdap/Td vaccine (1 - Tdap) DTaP/Tdap/Td vaccine (1 - Tdap) [facility] Start: 05-01-1999 Hepatitis C screening Hepatitis C sc reen [facility] Start: 1996 HIV screening HIV screen [facility] Start: 1993 Depression Screen Depression Screen [facility] Start: 1982 Varicella vaccine (1 of 2 - 2-dose childhood series) Varicella vaccine (1 of 2 - 2-dose childhood series) [facility] Start: 1981 COVID-19 Vaccine (#1) COVID-19 Vacci ne (#1) [facility] Start: 1981 Hepatitis B vaccine (1 of 3 - 3-dose series) Hepatitis B vaccine (1 of 3 - 3-dose series) [facility] End: 10-27-2022 Culture, Urine [facility] Work Phone: Comment on above: One Time for 1 Occur rences starting 10/27/2022 until 10/27/2022 Payers Date Payer Category Payer Unknown [id number] 1980 Unknown [id number] [id number] 1980 Unknown [id number] [id number] [id number] 1980 Unknown [id number] [id number] [id number] 1980 Unknown [id number] [id number] 1958 Unknown [id number] Social History Date Type Detail Facility Tobacco smoking stat [facility] Tobacco smoking consumption unknown [facility] Start: 1980 Sex Assigned At Not on file B ON [facility] Gender identity Not on file [facility] Hospital Discharge instructions 10-27-2022 Discharge InstructionsAttachments Note [...] cannot be sent through Care Everywhere.Flank Pain ([place]i)documented in this encounter [facility] Evaluation note Note Date & Type Note Facility Evaluation note Diagnosis Left flank pain- Primary Abdominal pain, unspecified site documented in this encounter [facility] Summary Purpose Family History No Family History Records FoundNo Family History Records FoundNo Family History Records Found Advance Directives No Advanced Directives Records FoundNo Advanced Directives Records FoundNo Advanced Directives Records Found Additional Source Comments INFORMATION SOURCE (unrecogn ized section and content) DATE CREATED AUTHOR 08/22/2017 [facility] DATE CREATED AUTHOR AUTHOR'S ORGANIZ ATION 04/28/2022 [facility] DATE CREATED AUTHOR AUTHOR'S ORGANIZ ATION 08/06/2023 [facility] Reason for Visit (unrecogniz ed [...] BE BASED ON THE PRIMARY CLINICAL RECORDS. [facility]. provides no warranty or guarantee of the accuracy or completeness of information in this document.
[2023-09-04 20:14] VITALS: BP 170/106
--- NOTE | 2023-09-04 20:18 | CT_ITS ---
The [address] [address] Patient Name: TAMY CHAPIN MRN: [id number] date: 1980 Sex: F Assigned Patient Location: ER Current Patient Location: ER Accession/Order Number: [id number] Exam Date: 09/04/2023 20:45 Report Date: 09/04/2023 21:54 At the request of: ABHI KINCAID Procedure: CT abdomen pelvis w con Indication: Abdominal pain Comparison: None Procedure: Axial images were made from the diaphragms through the symphysis pubis. No oral contrast was given prior to scanning. 100 mL Omnipaque 300 Intravenous contrast was given. Dose reduction techniques were achieved by using automated exposure control and/or adjustment of mA and/or kV according to patient size and/or use of iterative reconstruction technique. Findings: Liver/Biliary System: No liver masses. No intra or extrahepatic biliary dilatation. Status postcholecystectomy. Pancreas/Spleen: No evidence of acute pancreatitis. Pancreatic duct is not dilated. No pancreatic masses. No splenomegaly or splenic lesions. Kidneys/Adrenals: Normal symmetrical nephrograms. No renal masses. No renal or ureteral stones are seen. No hydronephrosis or hydroureter bilaterally. No adrenal nodules. Aorta/Vessels: No evidence of aortic aneurysm. Patent IVC, renal veins, hepatic veins and portal venous system. Bowel/Fluid/Nodes: No bowel dilatation or bowel wall thickening. No evidence of bowel obstruction. Mild sigmoid diverticulosis with no evidence of diverticulitis. Status post appendectomy. No ascites or fluid collections. No adenopathy. Lung bases: Clear. Other findings: No aggressive osseous lesions are seen. Pelvis: No pelvic masses or adenopathy. No free fluid seen in the pelvis. Status post hysterectomy. A 4.1 x 3.4 x 3.7 cm left ovarian cyst. Unremarkable bladder. Other Findings: No aggressive osseous lesions are seen. CT/CT abdomen pelvis w con Impression: 1. No evidence of acute abdominal or pelvic process. No CT findings to explain patient's abdominal pain. 2. Mild sigmoid diverticulosis. A 4.1 x 3.4 x 3.7 cm left ovarian cyst. 3. Status postcholecystectomy, hysterectomy and appendectomy. Electronically authenticated by: MANUEL ZUNIGA Date: 09/04/2023 21:54
--- NOTE | 2023-09-04 20:21 | XR_ITS ---
The [address] [address] Patient Name: TAMY CHAPIN MRN: [id number] date: 1980 Sex: F Assigned Patient Location: ER Current Patient Location: ER Accession/Order Number: [id number] Exam Date: 09/04/2023 20:42 Report Date: 09/04/2023 21:08 At the request of: ABHI KINCAID Procedure: XR chest 1V XR chest 1V 09/04/2023 7:42 PM CDT: History: epigastric pain, pancreatitis Comparison: None. Technique: 1 view chest Findings: The cardiomediastinal silhouette is normal. The lungs are clear without infiltrate, effusion, or pneumothorax. The bones are intact. XR/XR chest 1V Impression: No acute cardiopulmonary process. Electronically authenticated by: EMILE CHIRINOS Date: 09/04/2023 21:08
--- NOTE | 2023-09-04 20:23 | ED.GENADUL1 ---
Documented by User: ENOCH Chun 09/04/23 20:46 HPI HPI - General Adult General Chief complaint: Abdominal Pain Stated complaint: Flank Pain Time Seen by Provider: 09/04/23 20:05 Source: patient Mode of arrival: walk-in Limitations: no limitations History of Present Illness HPI narrative: Patient is a 43-year-old female presents to the ER with concerns of abdominal pain and likely pancreatitis. Patient states last Thursday she developed epigastric abdominal pain that has worsened with meals, never fully went away. She has been nauseated with vomiting up to 2-3 times a day. Diarrhea after attempting to eat. She denies any fevers or chills. She was seen today by her family doctor and placed on Cipro/hycosamine, outpatient labs noting elevated amylase and lipase. Patient states she checked her online lab results and after discussing symptoms with her mother came to the ER for evaluation. She denies any alcohol abuse or any new medications. Patient appears nontoxic in no acute distress but notes abdominal pain up to 8/10 uncomfortable. She has had previous cholecystectomy and partial hysterectomy. Urinary frequency but denies any discomfort with urination. Location: Reports abdomen Radiation: Reports back, abdomen and flank Severity: moderate Quality: Reports burning and aching Exacerbating factors: Reports eating Treatments prior to arrival: Reports none Related Data Home Medications ?Medication ?Instructions ?Recorded ?Confirmed tizanidine 4 mg tablet 8 mg PO .at bedtime 09/04/23 09/04/23 triamcinolone acetonide 0.1 % applic topical BID 09/04/23 topical cream Allergies Allergy/AdvReac Type Severity Reaction Status Date / Time hydromorphone [From Dilaudid] Allergy Severe Swelling Verified 09/04/23 20:07 of the Eye Opioid HPI Opioid Management Most Recent Opioid Data: Last Pain Scale 7 09/04/23 20:37 Review of Systems ROS Constitutional Denies: fever or chills Eyes Denies: change in vision or blurry vision Ears, nose, mouth, and throat Denies: throat pain or neck pain Cardiovascular Denies: chest pain, palpitations or swelling of feet/ankles Respiratory Denies: shortness of breath, cough or wheezing Gastrointestinal Reports: abdominal pain, nausea, vomiting and diarrhea; Denies: blood in stool Genitourinary Reports: urinary frequency; Denies: painful urination or urinary incontinence Musculoskeletal Denies: back pain, neck pain or extremity pain Integumentary/Breast Denies: rash or itching Neurological Denies: headache Endocrine Denies: excessive urination Hematologic/Lymphatic Denies: easy bruising Exam Narrative Exam Narrative: Nurses notes and vital signs reviewed and patient is not hypoxic. General: The patient appears well, but is holding epigastric abdomen, nontoxic and no apparent distress. Patient is resting comfortably on cart. Skin: Warm, dry, no pallor noted. Events of rash. Head: Normocephalic, atraumatic Neck: Supple, trachea mid-line, no tenderness, no lymphadenopathy Eye: Pupils are equal, round and reactive to light, EOMI Ears, Nose, Mouth, and Throat: External exam unremarkable. Cardiovascular: Regular Rate and Rhythm Respiratory: Patient is in no distress, no accessory muscle use, lungs are clear to auscultation, no wheezing, rales or rhonchi. Chest Wall: no tenderness Back: non-tender, no CVA tenderness Musculoskeletal: normal ROM, no tenderness, no swelling GI: Normal bowel sounds, tenderness epigastric region with slight guarding. Previous portal scars noted no palpable hernia., no masses appreciated. No rebound, or rigidity noted. Neurological: A&O x4 Psychiatric: Cooperative Constitutional Vital Signs, click to edit/add: Last Vital Signs Temp 97.9 F 09/04/23 20:07 Pulse 89 09/04/23 21:12 Resp 16 09/04/23 21:12 BP 175/105 H 09/04/23 21:12 Pulse Ox 99 09/04/23 21:12 O2 Del Method Room Air 09/04/23 20:07 Course Vital Signs Vital signs: Vital Signs Temperature 97.9 F 09/04/23 20:07 Pulse Rate 95 H 09/04/23 20:07 Respiratory Rate 18 09/04/23 20:07 Blood Pressure 175/127 H 09/04/23 20:07 Pulse Oximetry 98 09/04/23 20:07 Oxygen Delivery Method Room Air 09/04/23 20:07 Temperature 97.9 F 09/04/23 20:07 Pulse Rate 89 09/04/23 21:12 Respiratory Rate 16 09/04/23 21:12 Blood Pressure 175/105 H 09/04/23 21:12 Pulse Oximetry 99 09/04/23 21:12 Oxygen Delivery Method Room Air 09/04/23 20:07 Medical Decision Making MDM Narrative Medical decision making narrative: Outpatient labs done earlier today noted for elevated amylase and lipase consistent with likely pancreatitis, minimal elevation white blood cell count. Patient notes symptoms with nausea vomiting diarrhea and abdominal pain for the past 5 to 6 days. Epigastric abdominal pain present. She is medicated for pain and nausea and will have CT evaluation with IV contrast. Discharge Plan Discharge Stand Alone Forms: Portal Instructions Chief Complaint: Abdominal Pain Clinical Impression: Abdominal pain Patient Disposition: Home, Self-Care Prescriptions / Home Meds: No Action tizanidine 4 mg tablet 8 mg PO .at bedtime triamcinolone acetonide 0.1 % cream TOPICAL BID Print Language: [place] Instructions: Acute Abdominal Pain (ED) Additional Instructions: follow up with Dr Rowell Thursday. Return if pain worsens Referrals: Jorge L Rowell MD [Primary Care Provider] - 1 week Documented by User: Sloan Alvarez MD 09/04/23 23:21 HPI HPI - General Adult General Chief complaint: Abdominal Pain Stated complaint: Flank Pain Time Seen by Provider: 09/04/23 20:05 Related Data Home Medications ?Medication ?Instructions ?Recorded ?Confirmed tizanidine 4 mg tablet 8 mg PO .at bedtime 09/04/23 09/04/23 triamcinolone acetonide 0.1 % applic topical BID 09/04/23 topical cream Allergies Allergy/AdvReac Type Severity Reaction Status Date / Time hydromorphone [From Dilaudid] Allergy Severe Swelling Verified 09/04/23 20:07 of the Eye Opioid HPI Opioid Management Most Recent Opioid Data: Last Pain Scale 7 09/04/23 20:37 Exam Constitutional Vital Signs, click to edit/add: Last Vital Signs Temp 97.9 F 09/04/23 20:07 Pulse 89 09/04/23 21:12 Resp 16 09/04/23 21:12 BP 175/105 H 09/04/23 21:12 Pulse Ox 99 09/04/23 21:12 O2 Del Method Room Air 09/04/23 20:07 Course Vital Signs Vital signs: Vital Signs Temperature 97.9 F 09/04/23 20:07 Pulse Rate 95 H 09/04/23 20:07 Respiratory Rate 18 09/04/23 20:07 Blood Pressure 175/127 H 09/04/23 20:07 Pulse Oximetry 98 09/04/23 20:07 Oxygen Delivery Method Room Air 09/04/23 20:07 Temperature 97.9 F 09/04/23 20:07 Pulse Rate 89 09/04/23 21:12 Respiratory Rate 16 09/04/23 21:12 Blood Pressure 175/105 H 09/04/23 21:12 Pulse Oximetry 99 09/04/23 21:12 Oxygen Delivery Method Room Air 09/04/23 20:07 Medical Decision Making MDM Narrative Medical decision making narrative: Outpatient labs done earlier today noted for elevated amylase and lipase consistent with likely pancreatitis, minimal elevation white blood cell count. Patient notes symptoms with nausea vomiting diarrhea and abdominal pain for the past 5 to 6 days. Epigastric abdominal pain present. She is medicated for pain and nausea and will have CT evaluation with IV contrast. care transferred at end of PA shift. patient presents with complaint of LUQ abdominal pain for past 5 days. Also diarrhea and worsening of symptoms after eating. labs per her PCP with mild elevation of lipase and amylase. Patient concerned she may have pancreatitis and presented to ED. CT abd. returned and neg for pancreatic findings. Patient re interviewed and is pointing to below her left rib cage as site of pain. Informed her this could be referred pain from her chest. Offered to order CT of her chest to further evaluate but she did not want to wait and stated she would followup with Dr Rowell. Advised to return if she has more pain or would like to continue the workup Discharge Plan Discharge Stand Alone Forms: Portal Instructions Chief Complaint: Abdominal Pain Clinical Impression: Abdominal pain Patient Disposition: Home, Self-Care Prescriptions / Home Meds: No Action tizanidine 4 mg tablet 8 mg PO .at bedtime triamcinolone acetonide 0.1 % cream TOPICAL BID Print Language: [place] Instructions: Acute Abdominal Pain (ED) Additional Instructions: follow up with Dr Rowell Thursday. Return if pain worsens Referrals: Jorge L Rowell MD [Primary Care Provider] - 1 week
[2023-09-04] MEDS: 0.9 % SODIUM CHLORIDE 1,000 ML 999 ML IV (20:35)
[2023-09-04] MEDS: KETOROLAC TROMETHAMINE 30 MG/ML VIAL IVP (20:36)
[2023-09-04] MEDS: ONDANSETRON PF 4 MG/2 ML VIAL IV (20:36)
[2023-09-04] MEDS: FENTANYL CITRATE/PF 100 MCG/2 ML VIAL 50 MCG IV (20:37)
[2023-09-04] MEDS: FAMOTIDINE/PF 20 MG/2 ML VIAL IV (20:37)
[2023-09-04 21:12] VITALS: BP 175/105; PULSE 89; O2SAT 99
[2023-09-04] MEDS: PROMETHAZINE HCL 12.5 MG in 0.9 % SODIUM CHLORIDE 50 ML 202 MG IV (21:19)
[2023-09-04 23:20] VITALS: BP 168/99; PULSE 80; O2SAT 100
== END 2023-09-04 23:20 | disposition home or self-care (01) ==
PROVIDERS: Emergency Provider Internal Medicine; PCP Family Medicine
DX: R10.9 Unspecified abdominal pain (principal); K52.9 Noninfective gastroenteritis and colitis, unspecified; N39.0 Urinary tract infection, site not specified; Z90.49 Acquired absence of other specified parts of digestive tract; N83.202 Unspecified ovarian cyst, left side; K57.30 Diverticulosis of large intestine without perforation or abscess without bleeding; Z90.711 Acquired absence of uterus with remaining cervical stump
CPT/HCPCS: 36415; 71045; 74177; 80053; 81001; 82150; 83690; 84703; 85025; 87086; 96365; 96375; 99285; J1885; J2250; J2405; J3010; Q9967

== ENCOUNTER 2023-09-09 14:11 | Outpatient (OUT) | payer OTHER, SELFPAY ==
[2023-09-09 14:49] LABS: Basophils Percent Auto 0.1 % (0.2-2.0); Eosinophils Absolute Auto 0.1 10^3/uL (0.0-0.7); Eosinophils Percent Auto 0.8 % (0.9-7.0); Hematocrit 43.6 % (36.0-48.0); Hemoglobin 14.6 g/dL (12.0-16.0); Immature Granulocytes Abs Auto 0.03 10^3/uL (0.00-0.03); Immature Granulocytes Pct Auto 0.3 % (0.0-0.5); Lymphocytes Absolute Auto 2.4 10^3/uL (1.2-3.8); Lymphocytes Percent Auto 21.9 % (20.5-60.0); Mean Corpuscular HGB Conc 33.5 g/dL (29.9-35.2); Mean Corpuscular Hemoglobin 31.4 pg (26.7-34.0); Mean Corpuscular Volume 93.8 fL (81.0-99.0); Mean Platelet Volume 9.2 fL (9.5-13.5); Monocytes Absolute Auto 0.6 10^3/uL (0.3-0.8); Monocytes Percent Auto 5.5 % (1.7-12.0); Neutrophils Absolute Auto 7.8 10^3/uL (1.4-6.5); Neutrophils Percent Auto 71.4 % (43.0-75.0); Platelet Count 270 10^3/uL (150-450); Red Blood Count 4.65 10^6/uL (4.20-5.40); Red Cell Distribution Width 12.7 % (11.0-15.0); White Blood Count 10.9 10^3/uL (4.0-11.0)
[2023-09-09 15:13] LABS: Alanine Aminotransferase 22 U/L (14-59); Albumin Globulin Ratio 0.8; Albumin Level 3.4 g/dL (3.4-5.0); Alkaline Phosphatase 87 U/L (46-116); Amylase 55 U/L (25-115); Anion Gap 10.4; Aspartate Amino Transferase 11 U/L (15-37); BUN Creatinine Ratio 14.6; Bilirubin Total 0.3 mg/dL (0.2-1.0); Calcium 9.1 mg/dL (8.5-10.1); Carbon Dioxide 28.9 mmol/L (21.0-32.0); Chloride 101 mmol/L (98-107); Estimated GFR (African America >60 (>=60); Estimated GFR (Non-African Ame >60 (>=60); Globulin 4.4 g/dL; Glucose 97 mg/dL (74-106); Potassium 4.3 mmol/L (3.5-5.1); Sodium 136 mmol/L (136-145); Total Protein 7.8 g/dL (6.4-8.2)
== END 2023-09-09 14:12 | disposition home or self-care (01) ==
LOC: LAB 14:12
PROVIDERS: PCP Family Medicine; Visit Provider Family Medicine
DX: R19.7 Diarrhea, unspecified (principal); I10 Essential (primary) hypertension
CPT/HCPCS: 36415; 80053; 82150; 83690; 85025

== ENCOUNTER 2023-11-02 10:53 | Outpatient (OUT) | payer OTHER, SELFPAY ==
--- NOTE | 2023-11-02 | XR_ITS ---
The [address] [address] Patient Name: TAMY CHAPIN MRN: [id number] date: 1980 Sex: F Assigned Patient Location: [facility] Current Patient Location: Accession/Order Number: [id number] Exam Date: 11/02/2023 11:10 Report Date: 11/04/2023 09:22 At the request of: FRANCIA RODRIGUEZ Procedure: XR ankle LT min 3V PROCEDURE: XR ankle LT min 3V HISTORY: ANKLE PAIN M25.579 COMPARISON: None. FINDINGS: BONES:No fracture, acute abnormality, or significant arthropathy. SOFT TISSUES:Prominent medial soft tissue swelling. EFFUSION:None visible. OTHER: Negative. XR/XR ankle LT min 3V IMPRESSION: 1. No acute bone abnormality. 2. Prominent swelling medial to the ankle of uncertain etiology. Electronically authenticated by: ABEL COLES Date: 11/04/2023 09:22
--- OUTSIDE RECORDS SUMMARY | 2023-11-02 11:19 | XMS_ITS | CCD ---
Author Organization [facility] Care Team Providers Care Hogshead Packer Name Role Phone STEPANIC, ARIES C Unavailable [...] Unavailable HOY ., DR FELDMAN Consulting Unavailable [place], DR MAURICIO Fraser Consulting Unavailable Unavailable Primary Care Provider ANNA Crain Attending Unavailable Allergies Allergy Classification Reported Allergen(s) Allergy Type Date of Onset Reaction(s) Facility (1 source) acetaminophen / oxyCODONE; Translations: [Percocet 5/325] Drug Allergy [facility] Repository (2 sources) HYDROmorphone; Translations: [Dilaudid] Drug Allergy [facility] Repository (1 source) egg extract Drug Allergy 02-09-2006 [facility] Repository (1 source) HYDROmorphone Drug Allergy 10-27-2022 [facility] Medications Current Medications Medication Drug Class(es) [...] Diffon 08-05-2023 Abs. Basophil <0.03 Normal 0.00-0.20 [facility] Comment on above: Performed By: #### T , CDP #### [facility] [address] [place], [place] [id number] Access Clerk: Mauricio Irby MD #### LIPR, FT3, INSU, T4, FE, GLYHGB #### [address] [id number] Access Clerk: Casa Medrano MD Abs.Imm.Granulocy te 0.05 k/uL Normal 0.00-0.30 [facility] Comment on above: Performed By: #### T SH, CDP #### [address] [place] [id number] Access Clerk: Mauricio Irby MD #### LIPR, FT3, INSU, T4, FE, GLYHGB #### [place] [address] Access Clerk: Casa Medrano MD Abs.Neutrophil (Seg) 7.71 k/uL Normal 1.50-8.10 [facility] Comment on above: Performed By: #### T SH, CDP #### [address] [place] [id number] Access Clerk: Mauricio Irby MD #### LIPR, FT3, INSU, T4, FE, GLYHGB #### [place] [id number] Access Clerk: Casa Medrano MD Basophils/100 WBC (Bld) 0 % Normal 0-2 [facility] Comment on above: Performed By: #### T SH, CDP #### [address] [place] [id number] Access Clerk: Mauricio Irby MD #### LIPR, FT3, INSU, T4, FE, GLYHGB #### [address] [id number] Access Clerk: Casa Medrano MD Eosinophils (Bld) [#/Vol] 0.10 10*3/uL Normal 0.00-0.44 [facility] Comment on above: Performed By: #### T SH, CDP #### [address] [place] [address] Access Clerk: Mauricio Irby MD #### LIPR, FT3, INSU, T4, FE, GLYHGB #### [address] [id number] Access Clerk: Casa Medrano MD Eosinophils/100 WBC (Bld) 1 % Normal 1-4 [facility] Comment on above: Performed By: #### T SH, CDP #### [address] [place] [address] Access Clerk: Mauricio Irby MD #### LIPR, FT3, INSU, T4, FE, GLYHGB #### [address] [id number] Access Clerk: Casa Medrano MD Erythrocyte distribution width (RBC) [Ratio] 12.5 % Normal 11.8-14.4 [facility] Comment on above: Performed By: #### T SH, CDP #### [address] [place] [address] Access Clerk: Mauricio Irby MD #### LIPR, FT3, INSU, T4, FE, GLYHGB #### [address] [id number] Access Clerk: Casa Medrano MD Hematocrit (Bld) [Volume fraction] 45.1 % Normal 36.3-47.1 [facility] Comment on above: Performed By: #### T SH, CDP #### [address] [place] [address] Access Clerk: Mauricio Irby MD #### LIPR, FT3, INSU, T4, FE, GLYHGB #### [address] [id number] Access Clerk: Casa Medrano MD Hemoglobin (Bld) [Mass/Vol] 15.2 g/dL High 11.9-15.1 [facility] Comment on above: Performed By: #### T SH, CDP #### [facility] [address] [place] [address] Dr. [place] [id number] Access Clerk: Maruicio Irby MD #### LIPR, FT3, INSU, T4, FE, GLYHGB #### [address] [address] Access Clerk: Casa Medrano MD Immature granulocytes/100 WBC (Bld) 1 % High 0 [facility] Comment on above: Performed By: #### T SH, CDP #### [address] [place] [id number] Access Clerk: Mauricio Irby MD #### LIPR, FT3, INSU, T4, FE, GLYHGB #### [place] [address] Access Clerk: Casa Medrano MD Lymphocytes (Bld) [#/Vol] 2.55 10*3/uL Normal 1.10-3.70 [facility] Comment on above: Performed By: #### T SH, CDP #### [facility] [address] [place] [address] Dr. [place] [id number] Access Clerk: Mauricio Irby MD #### LIPR, FT3, INSU, T4, FE, GLYHGB #### [address] [id number] Access Clerk: Casa Medrano MD Lymphocytes/100 WBC (Bld) 23 % Low 24-43 [facility] Comment on above: Performed By: #### T SH, CDP #### [facility] [address] [place] [address] Dr. [place] [id number] Access Clerk: Mauricio Irby MD #### LIPR, FT3, INSU, T4, FE, GLYHGB #### [place] 920012 [place], [place] [id number] Access Clerk: Casa Medrano MD MCH (RBC) [Entitic mass] 31.6 pg Normal 25.2-33.5 [facility] Comment on above: Performed By: #### T SH, CDP #### [address] [place] [id number] Access Clerk: Mauricio Irby MD #### LIPR, FT3, INSU, T4, FE, GLYHGB #### [address] [id number] Access Clerk: Casa Medrano MD MCHC (RBC) [Mass/Vol] 33.7 g/dL Normal 28.4-34.8 [facility] Comment on above: Performed By: #### T SH, CDP #### [address] [place] [id number] Access Clerk: Mauricio Irby MD #### LIPR, FT3, INSU, T4, FE, GLYHGB #### [place] [address] Access Clerk: Casa Medrano MD MCV (RBC) [Entitic vol] 93.8 fL Normal 82.6-102.9 [facility] Comment on above: Performed By: #### T SH, CDP #### [address] [place] [id number] Access Clerk: Mauricio Irby MD #### LIPR, FT3, INSU, T4, FE, GLYHGB #### [place] [id number] Access Clerk: Casa Medrano MD Monocytes (Bld) [#/Vol] 0.60 10*3/uL Normal 0.10-1.20 [facility] Comment on above: Performed By: #### T SH, CDP #### [facility] [address] [place], [place] [id number] Access Clerk: Mauricio Irby MD #### LIPR, FT3, INSU, T4, FE, GLYHGB #### [address] [id number] Access Clerk: Casa Medrano MD Monocytes/100 WBC (Bld) 5 % Normal 3-12 [facility] Comment on above: Performed By: #### T SH, CDP #### [facility] [address] [place] [address] Access Clerk: Mauricio Irby MD #### LIPR, FT3, INSU, T4, FE, GLYHGB #### [address] [id number] Access Clerk: Casa Medrano MD Neutrophil (Seg) 70 % High 36-65 [facility] Comment on above: Performed By: #### T SH, CDP #### [facility] [address] [place] [address] [place] [address] Access Clerk: Mauricio Irby MD #### LIPR, FT3, INSU, T4, FE, GLYHGB #### [address] [address] Access Clerk: Casa Medrano MD NRBC Automated 0.0 per 100 WBC Normal 0.0 [facility] Comment on above: Performed By: #### T SH, CDP #### [facility] [address] [place] [address] Access Clerk: Mauricio Irby MD #### LIPR, FT3, INSU, T4, FE, GLYHGB #### [address] [id number] Access Clerk: Casa Medrano MD Platelet mean volume (Bld) [Entitic vol] 9.2 fL Normal 8.1-13.5 [facility] Comment on above: Performed By: #### T SH, CDP #### [address] [place], [place] [id number] Access Clerk: Mauricio Irby MD #### LIPR, FT3, INSU, T4, FE, GLYHGB #### [place] 920012 [place] [address] Access Clerk: Casa Medrano MD Platelets (Bld) [#/Vol] 297 10*3/uL Normal 138-453 [facility] Comment on above: Performed By: #### T SH, CDP #### [address] [place], [place] [phone] Access Clerk: Mauricio Irby MD #### LIPR, FT3, INSU, T4, FE, GLYHGB #### [address] [address] Access Clerk: Casa Medrano MD RBC (Bld) [#/Vol] 4.81 10*6/uL Normal 3.95-5.11 [facility] Comment on above: Performed By: #### T SH, CDP #### [address] [place], [place] 0657583 Access Clerk: Mauricio Irby MD #### LIPR, FT3, INSU, T4, FE, GLYHGB #### [address] [address] Access Clerk: Casa Medrano MD WBC (Bld) [#/Vol] 11.0 10*3/uL Normal 3.5-11.3 [facility] Comment on above: Performed By: #### T SH, CDP #### [address] [place], [place] [id number] Access Clerk: Mauricio Irby MD #### LIPR, FT3, INSU, T4, FE, GLYHGB #### [address] [id number] Access Clerk: Casa Medrano MD Hemoglobin A1Con 08-05-2023 Glucose [Mass/Vol] 100 mg/dL Normal [facility] Comment on above: Result Comment: The ADA and AACC recommend providing the estimated average glucose result to permit better patient understanding of their HBA1c result. Performed By: #### C JANIE RAMIREZ, CP #### [facility] [address] [place] [address] Dr. [place], [place] [phone] Access Clerk: Mauricio Irby MD HbA1c (Bld) [Mass fraction] 5.1 % Normal 4.0-6.0 [facility] Comment on above: Performed By: #### C JANIE RAMIREZ, CP #### [address] [place], [place] [id number] Access Clerk: Mauricio Irby MD Insulinon 08-05-2023 Insulin 19.2 mU/L Normal [facility] Comment on above: Performed By: #### T SH, CDP #### [address] [place], [place] 2127283 Access Clerk: Mauricio Irby MD #### LIPR, FT3, INSU, T4, FE, GLYHGB #### [facility] [place], [place] 8718808 Access Clerk: Casa Medrano MD Reference Range Normal [facility] Comment on above: Result Comment: Fast in.6-24.9 30 min: 20-112 60 min: 29-88 90 min: 26-84 120 min: 22-79 Performed By: #### T SH, CDP #### [facility] [address] [place] [address] [place] [address] Access Clerk: Mauricio Irby MD #### LIPR, FT3, INSU, T4, FE, GLYHGB #### [place] [address]19 [place], [place] 2926108 Access Clerk: Casa Medrano MD Ironon 08-05-2023 Iron [Mass/Vol] 68 ug/dL Normal 37-145 [facility] Comment on above: Performed By: #### C DP, LIP, CP #### [address] [place] [address] Access Clerk: Mauricio Irby MD Lipid Profileon 08-05-2023 Cholesterol [Mass/Vol] 171 mg/dL Normal 0-199 [facility] Comment on above: Result Comment: Cholesterol Guidelines: <200 Desirable 200-240 Borderline >240 Undesirable Performed By: #### T SH, CDP #### [address] [place] [address] Access Clerk: Mauricio Irby MD #### LIPR, FT3, INSU, T4, FE, GLYHGB #### [address] [id number] Access Clerk: Casa Medrano MD Cholesterol in HDL [Mass/Vol] 52 mg/dL Normal >40 [facility] Comment on above: Result Comment: HDL Guidelines: <40 Undesirable 40-59 Borderline >59 Desirable Performed By: #### T SH, CDP #### [address] [place] [address] Access Clerk: Mauricio Irby MD #### LIPR, FT3, INSU, T4, FE, GLYHGB #### [address] [id number] Access Clerk: Casa Medrano MD Cholesterol in LDL [Mass/Vol] 100 mg/dL Normal 0-100 [facility] Comment on above: Result Comment: LDL Guidelines: <100 Desirable 100-129 Near to/above Desirable 130-159 Borderline >159 Undesirable Direct (measured) LDL and calculated LDL are not interchangeable tests. Performed By: #### T SH, CDP #### [address] [place] [address] Access Clerk: Mauricio Irby MD #### LIPR, FT3, INSU, T4, FE, GLYHGB #### [place] [address] [place] [address] Access Clerk: Casa Medrano MD Cholesterol in VLDL [Mass/Vol] 19 mg/dL Normal [facility] Comment on above: Performed By: #### T SH, CDP #### [address] [place], [place] [id number] Access Clerk: Mauricio Irby MD #### LIPR, FT3, INSU, T4, FE, GLYHGB #### [address] [address] Access Clerk: Casa Medrano MD Cholesterol.total /Cholesterol in HDL [Mass ratio] 3.0 {ratio} Normal [facility] Comment on above: Performed By: #### T DANIEL, CDP #### [address] [place] [address] Access Clerk: Mauricio Irby MD #### LIPR, FT3, INSU, T4, FE, GLYHGB #### [address] [id number] Access Clerk: Casa Medrano MD Triglyceride [Mass/Vol] 93 mg/dL Normal <150 [facility] Comment on above: Result Comment: Triglyceride Guidelines: <150 Desirable 150-199 Borderline 200-499 High >499 Very high Based on AHA Guidelines for fasting triglyceride, November 2011. Performed By: #### T SH, CDP #### [address] [place], [place] 9503283 Access Clerk: Mauricio Irby MD #### LIPR, FT3, INSU, T4, FE, GLYHGB #### [address] [address] Access Clerk: Casa Medrano MD T3, Freeon 08-05-2023 Free T3 [Mass/Vol] 2.90 pg/mL Normal 2.00-4.40 [facility] Comment on above: Performed By: #### C DP LIP, CP #### [address] [place] [address] Access Clerk: Mauricio Irby MD Thyroid Stim. Horm.on 2023 Thyroid Stim. Horm. 1.33 uIU/mL Normal 0.30-5.00 [facility] Comment on above: Performed By: #### T SH, CDP #### [address] [place] [address] Access Clerk: Mauricio Irby MD #### LIPR, FT3, INSU, T4, FE, GLYHGB #### [place] [address] [place], [place] [id number] Access Clerk: Casa Medrano MD Thyroxine T4on 08-05-2023 T4 [Mass/Vol] 9.9 ug/dL Normal 4.5-11.7 [facility] Comment on above: Performed By: #### T SH, CDP #### [address] [place] [address] Access Clerk: Mauricio Irby MD #### LIPR, FT3, INSU, T4, FE, GLYHGB #### [place] [address]13 [place], [place] 4271508 Access Clerk: Casa Medrano MD Cult,Urineon 10-28-2022 Cult,Urine Specimen Description .CLEAN CATCH URINE Culture NO SIGNIFICANT GROWTH Report Status FINAL 10/28/2022 Normal [facility] Comment on above: Performed By: #### C JANIE RAMIREZ, CP #### [address] [place] [address] Access Clerk: Mauricio Irby MD CBC with Auto Differentialon 10-27-2022 Basophils (Bld) [#/Vol] 0.03 10*3/uL [facility] Basophils/100 WBC (Bld) 0 % 0 - 2 % [facility] Eosinophils (Bld) [#/Vol] 0.07 10*3/uL [facility] Eosinophils/100 WBC (Bld) 1 % 1 - 4 % [facility] Erythrocyte distribution width (RBC) [Ratio] 12.6 % 11.8 - 14.4 % [facility] Hematocrit (Bld) [Volume fraction] 43.7 % 36.3 - 47.1 % [facility] Hemoglobin (Bld) [Mass/Vol] 14.3 g/dL 11.9 - 15.1 g/dL [facility] Immature granulocytes (Bld) [#/Vol] 0.04 10*3/uL [facility] Immature granulocytes/100 WBC (Bld) 0 % 0 [facility] Interpretation and review of laboratory results Abnormal [facility] Lymphocytes/100 WBC (Bld) 27 % 24 - 43 % [facility] Lymphocytes/100 WBC (Bld) 2.50 % [facility] MCH (RBC) [Entitic mass] 31.2 pg 25.2 - 33.5 pg [facility] MCHC (RBC) [Mass/Vol] 32.7 g/dL 28.4 - 34.8 g/dL [facility] MCV (RBC) [Entitic vol] 95.4 fL 82.6 - 102.9 fL [facility] Monocytes/100 WBC (Bld) 5 % 3 - 12 % [facility] Monocytes/100 WBC (Bld) 0.44 % [facility] Neutrophils/100 WBC (Bld) 67 % High 36 - 65 % [facility] Nucleated RBC/100 WBC (Bld) [Ratio] 0.0 % 0.0 per 100 WBC [facility] Platelet mean volume (Bld) [Entitic vol] 8.9 fL 8.1 - 13.5 fL [facility] Platelets (Bld) [#/Vol] 264 10*3/uL [facility] RBC (Bld) [#/Vol] 4.58 10*6/uL 3.95 - 5.1 1 m/uL [facility] Segmented neutrophils/100 WBC (Bld) 6.32 % [facility] WBC other (Bld) [#/Vol] 9.4 [facility] CBC with Diffon 10-27-2022 Abs. Basophil 0.03 k/uL Normal 0.00-0.20 [facility] Comment on above: Performed By: #### C DP, LIP, CP #### [facility] [address] [place] [address] [place] [address] Access Clerk: Mauricio Irby MD Abs.Imm.Granulocy te 0.04 k/uL Normal 0.00-0.30 [facility] Comment on above: Performed By: #### C DP, LIP, CP #### [address] [place] [address] Access Clerk: Mauricio Irby MD Abs.Neutrophil (Seg) 6.32 k/uL Normal 1.50-8.10 [facility] Comment on above: Performed By: #### C DP, LIP, CP #### [address] [place], [place] [address] Access Clerk: Mauricio Irby MD Basophils/100 WBC (Bld) 0 % Normal 0-2 [facility] Comment on above: Performed By: #### C DP, LIP, CP #### [address] [place] [address] Access Clerk: Mauricio Irby MD Eosinophils (Bld) [#/Vol] 0.07 10*3/uL Normal 0.00-0.44 [facility] Comment on above: Performed By: #### C DP, LIP, CP #### [address] [place], [facility] Access Clerk: Mauricio Irby MD Eosinophils/100 WBC (Bld) 1 % Normal 1-4 [facility] Comment on above: Performed By: #### C DP, LIP, CP #### [address] [place] [id number] Access Clerk: Mauricio Irby MD Erythrocyte distribution width (RBC) [Ratio] 12.6 % Normal 11.8-14.4 [facility] Comment on above: Performed By: #### C DP LIP, CP #### [facility] [address] [place], [place] [id number] Access Clerk: Mauricio Irby MD Hematocrit (Bld) [Volume fraction] 43.7 % Normal 36.3-47.1 [facility] Comment on above: Performed By: #### C DP, LIP, CP #### [facility] [address] [place] [address] Access Clerk: Mauricio Irby MD Hemoglobin (Bld) [Mass/Vol] 14.3 g/dL Normal 11.9-15.1 [facility] Comment on above: Performed By: #### C JAMES LIP, CP #### [address] [place], [place] [address] Access Clerk: Mauricio Irby MD Immature granulocytes/100 WBC (Bld) 0 % Normal 0 [facility] Comment on above: Performed By: #### C JAMES LIP, CP #### [address] [place] [address] Access Clerk: Mauricio Irby MD Lymphocytes (Bld) [#/Vol] 2.50 10*3/uL Normal 1.10-3.70 [facility] Comment on above: Performed By: #### C DP LIP, CP #### [facility] [address] [place] [address] Access Clerk: Mauricio Irby MD Lymphocytes/100 WBC (Bld) 27 % Normal 24-43 [facility] Comment on above: Performed By: #### C DP, LIP, CP #### [facility] [address] [place], [place] 0361983 Access Clerk: Mauricio Irby MD MCH (RBC) [Entitic mass] 31.2 pg Normal 25.2-33.5 [facility] Comment on above: Performed By: #### C JANIE RAMIREZ, CP #### [address] [place], [place] 7738183 Access Clerk: Mauricio Irby MD MCHC (RBC) [Mass/Vol] 32.7 g/dL Normal 28.4-34.8 [facility] Comment on above: Performed By: #### C JANIE RAMIREZ, CP #### [address] [place] [address] Access Clerk: Mauricio Irby MD MCV (RBC) [Entitic vol] 95.4 fL Normal 82.6-102.9 [facility] Comment on above: Performed By: #### C JANIE RAMIREZ, CP #### [address] [place], [facility] Access Clerk: Mauricio Irby MD Monocytes (Bld) [#/Vol] 0.44 10*3/uL Normal 0.10-1.20 [facility] Comment on above: Performed By: #### C JANIE RAMIREZ, CP #### [address] [place], [place] 5837683 Access Clerk: Mauricio Irby MD Monocytes/100 WBC (Bld) 5 % Normal 3-12 [facility] Comment on above: Performed By: #### C JANIE RAMIREZ, CP #### [address] [place], [place] 9038783 Access Clerk: Mauricio Irby MD Neutrophil (Seg) 67 % High 36-65 [facility] Comment on above: Performed By: #### C JANIE RAMIREZ, CP #### [address] [place] [address] Access Clerk: Mauricio Irby MD NRBC Automated 0.0 per 100 WBC Normal 0.0 [facility] Comment on above: Performed By: #### C JAMES LIP, CP #### [address] [place], [facility] Access Clerk: Mauricio Irby MD Platelet mean volume (Bld) [Entitic vol] 8.9 fL Normal 8.1-13.5 [facility] Comment on above: Performed By: #### C JAMES LIP, CP #### [address] [place], [facility] Access Clerk: Mauricio Irby MD Platelets (Bld) [#/Vol] 264 10*3/uL Normal 138-453 [facility] Comment on above: Performed By: #### C JANIE RAMIREZ, CP #### [address] [place], [place] 0642883 Access Clerk: Mauricio Irby MD RBC (Bld) [#/Vol] 4.58 10*6/uL Normal 3.95-5.11 [facility] Comment on above: Performed By: #### C JANIE RAMIREZ, CP #### [address] [place], [facility] Access Clerk: Mauricio Irby MD WBC (Bld) [#/Vol] 9.4 10*3/uL Normal 3.5-11.3 [facility] Comment on above: Performed By: #### C JAMES LIP, CP #### [address] [place], [facility]83 Access Clerk: Mauricio Irby MD CT ABDOMEN PELVIS W [...] Ronni Vaughn MD 10/27/22 Final result Normal [facility] CT ABDOMEN PELVIS W IV CONTR AST Additional Contrast? Noneon 10-27-2022 No acute abnormality identified. [facility] EXAMINATION: CT OF THE ABDOMEN AND [...] findings do not require dedicated imaging follow-up. [facility] Ronni Vaughn MD - 10/27/2022 EXAMINATION: [...] imaging follow-up. IMPRESSION: No acute abnormality identified. [facility] Radiology Study observation (narrative) [facility] CT ABDOMEN PELVIS W IV CONTR AST Additional Contrast? NoneOrdered By: Ronni Vaughn on 10-27-2022 [facility] Work Phone: Comp Metabolic Profon 2022 Albumin [Mass/Vol] 4.0 g/dL Normal 3.5-5.2 [facility] Comment on above: Performed By: #### C DP, LIP, CP #### [address] [place] [address] Access Clerk: Mauriico Irby MD Albumin/Glob Ratio 1.1 Normal 1.0-2.5 [facility] Comment on above: Performed By: #### C DP LIP, CP #### [address] [place] [address] Access Clerk: Mauricio Irby MD Alkaline Phos 82 U/L Normal 35-104 [facility] Comment on above: Performed By: #### C DP, LIP, CP #### [address] [place] [id number] Access Clerk: Mauricio Irby MD ALT [Catalytic activity/Vol] 11 U/L Normal 5-33 [facility] Comment on above: Performed By: #### C DP, LIP, CP #### [facility] [address] [place], [place] 4659383 Access Clerk: Mauricio Irby MD Anion gap [Moles/Vol] 8 mmol/L Low 9-17 [facility] Comment on above: Performed By: #### C DP, LIP, CP #### [facility] [address] [place], [place] 3479783 Access Clerk: Mauricio Irby MD AST [Catalytic activity/Vol] 12 U/L Normal <32 [facility] Comment on above: Performed By: #### C DP LIP, CP #### [facility] [address] [place], [place] 0290183 Access Clerk: Mauricio Irby MD Bilirubin [Mass/Vol] 0.2 mg/dL Low 0.3-1.2 [facility] Comment on above: Performed By: #### C JAMES LIP, CP #### [facility] [address] [place] [address] Dr[address] [place], [place] [id number] Access Clerk: Mauricio Irby MD BUN/CRE Ratio 11 Normal 9-20 [facility] Comment on above: Performed By: #### C DP LIP, CP #### [facility] [address] [place], [place] [id number] Access Clerk: Mauricio Irby MD Calcium [Mass/Vol] 9.2 mg/dL Normal 8.6-10.4 [facility] Comment on above: Performed By: #### C DP, LIP, CP #### [facility] [address] [place], [place] 0348383 Access Clerk: Mauricio Irby MD Chloride [Moles/Vol] 102 mmol/L Normal 98-107 [facility] Comment on above: Performed By: #### C JANIE RAMIREZ, CP #### [facility] [address] [place] [address] Access Clerk: Mauricio Irby MD CO2 [Moles/Vol] 27 mmol/L Normal 20-31 [facility] Comment on above: Performed By: #### C JANIE RAMIREZ, CP #### [facility] [address] [place] [address] Access Clerk: Mauricio Irby MD Creatinine [Mass/Vol] 0.7 mg/dL Normal 0.5-0.9 [facility] Comment on above: Performed By: #### C JANIE RAMIREZ, CP #### [facility] [address] [place] [address] Access Clerk: Mauricio Irby MD GFR/1.73 sq M.predicted among non-blacks MDRD (S/P/Bld) [Vol rate/Area] mL/min/{1.73_m2} Normal >60 [facility] Comment on above: Result Comment: These results [...] By: #### C JANIE RAMIREZ, CP #### [facility] Lab [address] [place] [address] Access Clerk: Mauricio Irby MD Glucose [Mass/Vol] 134 mg/dL High 70-99 [facility] Comment on above: Performed By: #### C JANIE RAMIREZ, CP #### [facility] [address] [place] [address] Access Clerk: Mauricio Irby MD Potassium [Moles/Vol] 4.1 mmol/L Normal 3.7-5.3 [facility] Comment on above: Performed By: #### C DP LIP, CP #### [facility] [address] [place], [place] [id number] Access Clerk: Mauricio Irby MD Protein [Mass/Vol] 7.7 g/dL Normal 6.4-8.3 [facility] Comment on above: Performed By: #### C JAMES LIP, CP #### [facility] [address] [place], [place] [id number] Access Clerk: Mauricio Irby MD Sodium [Moles/Vol] 137 mmol/L Normal 135-144 [facility] Comment on above: Performed By: #### C JANIE RAMIREZ, CP #### [facility] [address] [place], [place] [id number] Access Clerk: Mauricio Irby MD Urea nitrogen [Mass/Vol] 8 mg/dL Normal 6-20 [facility] Comment on above: Performed By: #### C JAMES LIP, CP #### [facility] [address] [place] [address] Access Clerk: Mauricio Irby MD Comprehensive Metabolic [facility] 10-27-2022 Albumin [Mass/Vol] 4.0 g/dL 3.5 - 5.2 g/dL [facility] Albumin/Globulin [Mass ratio] 1.1 {ratio} 1.0 - 2.5 [facility] ALP [Catalytic activity/Vol] 82 U/L 35 - 104 U/L [facility] ALT [Catalytic activity/Vol] 11 U/L 5 - 33 U/L [facility] Anion gap [Moles/Vol] 8 mmol/L Low 9 - 17 mmol/L [facility] AST [Catalytic activity/Vol] 12 U/L NINF - 32 U/L [facility] Bilirubin [Mass/Vol] 0.2 mg/dL Low 0.3 - 1.2 mg/dL [facility] Calcium [Mass/Vol] 9.2 mg/dL 8.6 - 10.4 mg/dL [facility] Chloride [Moles/Vol] 102 mmol/L 98 - 107 mmol/L [facility] CO2 [Moles/Vol] 27 mmol/L 20 - 31 mmol/L [facility] Creatinine [Mass/Vol] 0.7 mg/dL 0.5 - 0.9 mg/dL [facility] GFR/1.73 sq M.predicted MDRD (S/P/Bld) [Vol rate/Area] - PINF [facility] Comment on above: These results are [...] 134 mg/dL High 70 - 99 mg/dL [facility] Potassium [Moles/Vol] 4.1 mmol/L 3.7 - 5.3 mmol/L [facility] Protein [Mass/Vol] 7.7 g/dL 6.4 - 8.3 g/dL [facility] Sodium [Moles/Vol] 137 mmol/L 135 - 144 mmol/L [facility] Urea nitrogen [Mass/Vol] 8 mg/dL 6 - 20 mg/dL [facility] Urea nitrogen/Creatini ne [Mass ratio] 11 mg/mg 9 - 20 [facility] Lactic Acidon 10-27-2022 Lactate (BldV) [Moles/Vol] 1.6 mmol/L 0.5 - 2.2 mmol/L [facility] Lactate [Moles/Vol] 1.6 mmol/L Normal 0.5-2.2 [facility] Comment on above: Performed By: #### C JANIE RAMIREZ CP #### [facility] [address] [place] [address] Access Clerk: Mauricio Irby MD Lipaseon 09-18-2023 Lipase [Catalytic activity/Vol] 67 U/L High 13 - 60 U/L [facility] Lipase [Catalytic activity/Vol] 67 U/L High 13-60 [facility] Comment on above: Performed By: #### C DP, LIP, CP #### [facility] [address] [place] [address] Access Clerk: Mauricio Irby MD No Panel Informationon 10-27 Interpretation and review of laboratory results Abnormal [facility] Urinalysis w/ Microon 2022 Bacteria 1+ Abnormal NONE [facility] Comment on above: Performed By: #### U AMIC #### [facility] [address] [place], [place] [id number] Access Clerk: Mauricio Irby MD Bilirubin, SemiQt,Ur Negative Normal NEG [facility] Comment on above: Performed By: #### U AMIC #### [facility] [address] [place], [place] [id number] Access Clerk: Mauricio Irby MD Blood, Urine Negative Normal NEG [facility] Comment on above: Performed By: #### U AMIC #### [facility] [address] [place], [place] [id number] Access Clerk: Mauricio Irby MD Clarity (U) Clear Normal CLEAR [facility] Comment on above: Performed By: #### U AMIC #### [facility] [address] [place], [place] [id number] Access Clerk: Mauricio Irby MD Color (U) Yellow Normal YEL [facility] Comment on above: Performed By: #### U AMIC #### [facility] [address] [place], [place] [id number] Access Clerk: Mauricio Irby MD Epithelial cells LM Ql (Urine sed) 10 TO 20 Normal 0-25 [facility] Comment on above: Performed By: #### U AMIC #### [facility] [address] [place], [place] [id number] Access Clerk: Mauricio Irby MD Glucose Ql (U) Negative Normal NEG [facility] Comment on above: Performed By: #### U AMIC #### [facility] [address] [place] [address] Dr. [place], [place] [id number] Access Clerk: Mauricio Irby MD Ketones Ql (U) Negative Normal NEG [facility] Comment on above: Performed By: #### U AMIC #### [facility] [address] [place] [address] Dr. [place], [place] [id number] Access Clerk: Mauricio Irby MD Leukocyte esterase Test strip Ql (U) Negative Normal NEG [facility] Comment on above: Performed By: #### U AMIC #### [facility] [address] [place] [address] Dr. [place], [place] [id number] Access Clerk: Mauricio Irby MD Nitrite,Ur Negative Normal NEG [facility] Comment on above: Performed By: #### U AMIC #### [facility] [address] [place] [address] [place] [address] Access Clerk: Mauricio Irby MD PH,Ur 6.0 Normal 5.0-9.0 [facility] Comment on above: Performed By: #### U AMIC #### [facility] [address] [place] [address] [place] [address] Access Clerk: Mauricio Irby MD Protein Ql (U) Negative Normal NEG [facility] Comment on above: Performed By: #### U AMIC #### [facility] [address] [place] [address] Dr. [place], [place] [id number] Access Clerk: Mauricio Irby MD Spec. [place],Ur 1.010 Normal 1.010-1.020 [facility] Comment on above: Performed By: #### U AMIC #### [facility] [address] [place] [address] Dr. [place], [place] [id number] Access Clerk: Mauricio Irby MD Urine RBC's 0 TO 2 Normal 0-2 [facility] Comment on above: Performed By: #### U AMIC #### [facility] [address] [place], [place] [id number] Access Clerk: Mauricio Irby MD Urine WBC's 0 TO 2 Normal 0-5 [facility] Comment on above: Performed By: #### U AMIC #### [facility] [address] [place], [place] [id number] Access Clerk: Mauricio Irby MD Urobilinogen,Ur Normal Normal 0.0-1.0 [facility] Comment on above: Performed By: #### U AMIC #### [facility] [address] [place] [address] Dr. [place], [place] [id number] Access Clerk: Mauricio Irby MD Urinalysis with Microscopico n 10-27-2022 Bacteria LM Ql (Urine sed) 1+ Abnormal None [facility] Bilirubin Ql (U) Negative NEGATIVE [facility] Clarity (U) Clear Clear [facility] Color (U) Yellow Yellow [facility] Epithelial cells LM.HPF (Urine sed) [#/Area] 10 TO 20 [facility] Glucose Test strip (U) [Mass/Vol] Negative NEGATIVE mg/dL [facility] Hemoglobin Auto test strip Ql (U) Negative NEGATIVE [facility] Interpretation and review of laboratory results Abnormal [facility] Ketones (U) [Mass/Vol] Negative NEGATIVE mg/dL [facility] Leukocyte esterase Test strip Ql (U) Negative NEGATIVE [facility] Nitrite Ql (U) Negative NEGATIVE [facility] pH (U) 6.0 [pH] 5.0 - 9.0 [facility] Protein (U) [Mass/Vol] Negative NEGATIVE mg/dL [facility] RBC LM.HPF (Urine sed) [#/Area] 0 TO 2 [facility] Specific gravity (U) [Rel density] 1.010 1.010 - 1.020 [facility] Urobilinogen Qn (U) Normal 0.0 - 1.0 EU/dL [facility] WBC LM.HPF (Urine sed) [#/Area] 0 TO 2 [facility] XR ABD FLAT UP_PA Joyce 03-25 XR [...] MAURICIO LYONS Date: 2022-03-25 08:01 Normal [facility] AMYLASEon 03-24-2022 Amylase [Catalytic activity/Vol] 36 U/L Normal 25-115 [facility] Comment on above: Performed By: #### C MP, DARION, LIPA #### [facility] [address] [place] [address] Dr. Melecio Chadwick CBC AUTO DIFFon 03-24-2022 BASO # 0.0 103/ul Normal 0.0-0.1 [facility] Comment on above: Performed By: #### C BC #### [facility] [address] [place] [address] Dr. Melecio Chadwick Basophils/100 WBC (Bld) 0.2 % Normal 0.2-2.0 [facility] Comment on above: Performed By: #### C BC #### [facility] [address] [place] [address] Dr. Melecio Chadwick EO # 0.1 103/ul Normal 0.0-0.7 [facility] Comment on above: Performed By: #### C BC #### [facility] [address] [place] [address] Dr. Melecio Chadwick Eosinophils/100 WBC (Bld) 1.1 % Normal 0.9-7.0 [facility] Comment on above: Performed By: #### C BC #### [facility] [address] [place] [address] Dr. Melecio Chadwick Erythrocyte distribution width (RBC) [Ratio] 12.3 % Normal 11.0-15.0 [facility] Comment on above: Performed By: #### C BC #### [facility] [address] [place] [address] Dr. Melecio Chadwick Hematocrit (Bld) [Volume fraction] 42.5 % Normal 36.0-48.0 [facility] Comment on above: Performed By: #### C BC #### [facility] [address] [place] [address] Dr. Melecio Chadwick Hemoglobin (Bld) [Mass/Vol] 14.3 g/dL Normal 12.0-16.0 [facility] Comment on above: Performed By: #### C BC #### [facility] [address] [place] [address] Dr. Melecio Chadwick IG # 0.03 10e3/ul Normal 0.00-0.03 [facility] Comment on above: Performed By: #### C BC #### [facility] [address] [place] [address] Dr. Melecio Chadwick IG % 0.3 % Normal 0.0-0.5 [facility] Comment on above: Performed By: #### C BC #### [facility] [address] [place] [address] Dr. Melecio Chadwick LYMPH # 3.1 103/ul Normal 1.2-3.8 [facility] Comment on above: Performed By: #### C BC #### [facility] [address] [place] [address] Dr. Melecio Chadwick Lymphocytes/100 WBC (Bld) 29.8 % Normal 20.5-60.0 [facility] Comment on above: Performed By: #### C BC #### [facility] [address] [place] [address] Dr. Melecio Chadwick MANUAL DIFF REQ NO Normal [facility] Comment on above: Performed By: #### C BC #### [facility] [address] [address] [address] Melecio Chadwick MCH (RBC) [Entitic mass] 31.0 pg Normal 26.7-34.0 [facility] Comment on above: Performed By: #### C BC #### [facility] [address] [place] [address] Dr. Melecio Chadwick MCHC (RBC) [Mass/Vol] 33.6 g/dL Normal 29.9-35.2 [facility] Comment on above: Performed By: #### C BC #### [facility] [address] [place] [address] Dr. Melecio Chadwick MCV (RBC) [Entitic vol] 92.2 fL Normal 81.0-99.0 [facility] Comment on above: Performed By: #### C BC #### [facility] [address] [place] [address] Dr. Melecio Chadwick MONO # 0.6 103/ul Normal 0.3-0.8 [facility] Comment on above: Performed By: #### C BC #### [facility] [address] [place] [address] Dr. Melecio Chadwick Monocytes/100 WBC (Bld) 5.8 % Normal 1.7-12.0 [facility] Comment on above: Performed By: #### C BC #### [facility] [address] [place] [address] Dr. Melecio Chadwick NEUT # 6.5 103/ul Normal 1.4-6.5 [facility] Comment on above: Performed By: #### C BC #### [facility] [address] [place] [address] Dr. Melecio Chadwick Neutrophils/100 WBC (Bld) 62.8 % Normal 43.0-75.0 [facility] Comment on above: Performed By: #### C BC #### [facility] [address] [place] [address] Dr. Melecio Chadwick Platelet mean volume (Bld) [Entitic vol] 9.0 fL Critically low 9.5-13.5 [facility] Comment on above: Performed By: #### C BC #### [facility] [address] [place] [address] Dr. Melecio Chadwick PLT 268 103/ul Normal 150-450 [facility] Comment on above: Performed By: #### C BC #### [facility] [address] [place] [address] Dr. Melecio Chadwick RBC 4.61 106/ul Normal 4.20-5.40 [facility] Comment on above: Performed By: #### C BC #### [facility] [address] [place] [address] Dr. Melecio Chadwick WBC 10.4 103/ul Normal 4.0-11.0 [facility] Comment on above: Performed By: #### C BC #### [facility] [address] [place] [address] Dr. Melecio Chadwick LIPASEon 03-24-2022 Lipase [Catalytic activity/Vol] 114.0 U/L Normal 73.0-393.0 [facility] Comment on above: Performed By: #### C MP DARION, LIPA #### [facility] [address] [place] [address] Dr. Melecio Chadwick PROF 14(COMP METB)on 023 Albumin [Mass/Vol] 3.5 g/dL Normal 3.4-5.0 [facility] Comment on above: Performed By: #### C MP, DARION, LIPA #### [facility] [address] [place] [address] Dr. Melecio Chadwick Albumin/Globulin [Mass ratio] 0.8 {ratio} Normal [facility] Comment on above: Performed By: #### C MP, DARION, LIPA #### [facility] [address] [place] [address] Dr. Melecio Chadwick ALP [Catalytic activity/Vol] 85 U/L Normal 46-116 [facility] Comment on above: Performed By: #### C MP, DARION, LIPA #### [facility] [address] [place] [address] Dr. Melecio Chadwick ALT [Catalytic activity/Vol] 21 U/L Normal 14-59 [facility] Comment on above: Performed By: #### C MP, DARION, LIPA #### [facility] [address] [place] [address] Dr. Melecio Chadwick Anion gap [Moles/Vol] 11.6 mmol/L Normal [facility] Comment on above: Performed By: #### C MP, DARION, LIPA #### [facility] [address] [place] [address] Dr. Melecio Chadwick AST [Catalytic activity/Vol] 15 U/L Normal 15-37 [facility] Comment on above: Performed By: #### C MP, DARION, LIPA #### [facility] [address] [place] [address] Dr. Melecio Chadwick Bilirubin [Mass/Vol] 0.3 mg/dL Normal 0.2-1.0 [facility] Comment on above: Performed By: #### C MP, DARION, LIPA #### [facility] [address] [place] [address] Dr. Melecio Chadwick Calcium [Mass/Vol] 8.8 mg/dL Normal 8.5-10.1 [facility] Comment on above: Performed By: #### C MP, DARION, LIPA #### [facility] [address] [place] [address] Dr. Melecio Chadwick Chloride [Moles/Vol] 102 mmol/L Normal 98-107 [facility] Comment on above: Performed By: #### C MP, DARION, LIPA #### [facility] [address] [place] [address] Dr. Melecio Chadwick CO2 [Moles/Vol] 28.5 mmol/L Normal 21.0-32.0 [facility] Comment on above: Performed By: #### C MP, DARION, LIPA #### [facility] [address] [place] [address] Dr. Melecio Chadwick Creatinine [Mass/Vol] 0.76 mg/dL Normal 0.55-1.02 [facility] Comment on above: Performed By: #### C MP, DARION, LIPA #### [facility] [address] [place] [address] Dr. Melecio Chadwick EGFR-AF ZAMBIAN >60 Normal >=60 [facility] Comment on above: Performed By: #### C DARION LOGAN, LIPA #### [facility] [address] [place] [address] Dr. Melecio Chadwick EGFR-NON AF ZAMBIAN >60 Normal >=60 [facility] Comment on above: Performed By: #### C MP, DARION, LIPA #### [facility] [address] [place] [address] Dr. Melecio Chadwick Globulin (S) [Mass/Vol] 4.2 g/dL Normal [facility] Comment on above: Performed By: #### C DARION LOGAN, LIPA #### [facility] [address] [place] [address] Dr. Melecio Chadwick Glucose [Mass/Vol] 97 mg/dL Normal 74-106 [facility] Comment on above: Performed By: #### C DOREEN DARION, LIPA #### [facility] [address] [place] [address] Dr. Melecio Chadwick Potassium [Moles/Vol] 4.1 mmol/L Normal 3.5-5.1 [facility] Comment on above: Performed By: #### C DARION LOGAN, LIPA #### [facility] [address] [place] [address] Dr. Melecio Chadwick Protein [Mass/Vol] 7.7 g/dL Normal 6.4-8.2 [facility] Comment on above: Performed By: #### C DOREEN DARION, LIPA #### [facility] [address] [place] [address] Dr. Melecio Chadwick Sodium [Moles/Vol] 138 mmol/L Normal 136-145 [facility] Comment on above: Performed By: #### C DOREEN DARION, LIPA #### [facility] [address] [place] [address] Dr. Melecio Chadwick Urea nitrogen [Mass/Vol] 9.0 mg/dL Normal 7.0-18.0 [facility] Comment on above: Performed By: #### C DOREEN DARION, LIPA #### [facility] [address] [place] [address] Dr. Melecio Chadwick Urea nitrogen/Creatini ne [Mass ratio] 11.8 mg/mg Normal [facility] Comment on above: Performed By: #### C MP, DARION, LIPA #### [facility] [address] [place] [address] Dr. Melecio Chadwick AMYLASEon 03-19-2022 Amylase [Catalytic activity/Vol] 44 U/L Normal 25-115 [facility] Comment on above: Performed By: #### A MY, CMP, LIPA #### [facility] [address] [place] [address] Dr. Melecio Chadwick CBC AUTO DIFFon 03-19-2022 BASO # 0.0 103/ul Normal 0.0-0.1 [facility] Comment on above: Performed By: #### C BC #### [facility] [address] [place] [address] Dr. Melecio Chadwick Basophils/100 WBC (Bld) 0.2 % Normal 0.2-2.0 [facility] Comment on above: Performed By: #### C BC #### [facility] [address] [place] [address] Dr. Melecio Chadwick EO # 0.1 103/ul Normal 0.0-0.7 [facility] Comment on above: Performed By: #### C BC #### [facility] [address] [place] [address] Dr. Melecio Chadwick Eosinophils/100 WBC (Bld) 1.5 % Normal 0.9-7.0 [facility] Comment on above: Performed By: #### C BC #### [facility] [address] [place] [address] Dr. Melecio Chadwick Erythrocyte distribution width (RBC) [Ratio] 12.4 % Normal 11.0-15.0 [facility] Comment on above: Performed By: #### C BC #### [facility] [address] [place] [address] Dr. Melecio Chadwick Hematocrit (Bld) [Volume fraction] 41.8 % Normal 36.0-48.0 [facility] Comment on above: Performed By: #### C BC #### [facility] [address] [place] [address] Dr. Melecio Chadwick Hemoglobin (Bld) [Mass/Vol] 13.2 g/dL Normal 12.0-16.0 [facility] Comment on above: Performed By: #### C BC #### [facility] [address] [place] [address] Dr. Melecio Chadwick IG # 0.02 10e3/ul Normal 0.00-0.03 [facility] Comment on above: Performed By: #### C BC #### [facility] [address] [place] [address] Dr. Melecio Chadwick IG % 0.2 % Normal 0.0-0.5 [facility] Comment on above: Performed By: #### C BC #### [facility] [address] [place] [address] Dr. Melecio Chadwick LYMPH # 3.3 103/ul Normal 1.2-3.8 [facility] Comment on above: Performed By: #### C BC #### [facility] [address] [place] [address] Dr. Melecio Chadwick Lymphocytes/100 WBC (Bld) 38.0 % Normal 20.5-60.0 [facility] Comment on above: Performed By: #### C BC #### [facility] [address] [place] [address] Dr. Melecio Chadwick MANUAL DIFF REQ NO Normal [facility] Comment on above: Performed By: #### C BC #### [facility] [address] [place] [address] Dr. Melecio Chadwick MCH (RBC) [Entitic mass] 30.9 pg Normal 26.7-34.0 [facility] Comment on above: Performed By: #### C BC #### [facility] [address] [place] [address] Dr. Melecio Chadwick MCHC (RBC) [Mass/Vol] 31.6 g/dL Normal 29.9-35.2 [facility] Comment on above: Performed By: #### C BC #### [facility] [id number] Melecio Chadwick MCV (RBC) [Entitic vol] 97.9 fL Normal 81.0-99.0 [facility] Comment on above: Performed By: #### C BC #### [facility] [address] [place] [address] Dr. Melecio Chadwick MONO # 0.4 103/ul Normal 0.3-0.8 [facility] Comment on above: Performed By: #### C BC #### [facility] [address] [place] [address] Dr. Melecio Chadwick Monocytes/100 WBC (Bld) 4.6 % Normal 1.7-12.0 [facility] Comment on above: Performed By: #### C BC #### [facility] [address] [place] [address] Dr. Melecio Chadwick NEUT # 4.8 103/ul Normal 1.4-6.5 [facility] Comment on above: Performed By: #### C BC #### [facility] [address] [place] [address] Dr. Melecio Chadwick Neutrophils/100 WBC (Bld) 55.5 % Normal 43.0-75.0 [facility] Comment on above: Performed By: #### C BC #### [facility] [address] [place] [address] Dr. Melecio Chadwick Platelet mean volume (Bld) [Entitic vol] 9.7 fL Normal 9.5-13.5 [facility] Comment on above: Performed By: #### C BC #### [facility] [address] [place] [address] Dr. Melecio Chadwick PLT 258 103/ul Normal 150-450 [facility] Comment on above: Performed By: #### C BC #### [facility] [address] [place] [address] Dr. Melecio Chadwick RBC 4.27 106/ul Normal 4.20-5.40 [facility] Comment on above: Performed By: #### C BC #### [facility] [address] [place] [address] Dr. Melecio Chadwick WBC 8.7 103/ul Normal 4.0-11.0 [facility] Comment on above: Performed By: #### C BC #### [facility] [address] [place] [address] Dr. Melecio Chadwick LIPASEon 03-19-2022 Lipase [Catalytic activity/Vol] 119.0 U/L Normal 73.0-393.0 [facility] Comment on above: Performed By: #### A MY, CMP, LIPA #### [facility] [address] [place] [address] Dr. Melecio Chadwick PROF 14(COMP METB)on 023 Albumin [Mass/Vol] 3.2 g/dL Critically low 3.4-5.0 [facility] Comment on above: Performed By: #### A MY, CMP, LIPA #### [facility] [address] [place] [address] Dr. Melecio Chadwick Albumin/Globulin [Mass ratio] 0.9 {ratio} Normal [facility] Comment on above: Performed By: #### A MY, CMP, LIPA #### [facility] [address] [place] [address] Dr. Melecio Chadwick ALP [Catalytic activity/Vol] 76 U/L Normal 46-116 [facility] Comment on above: Performed By: #### A MY, CMP, LIPA #### [facility] [address] [place] [address] Dr. Melecio Chadwick ALT [Catalytic activity/Vol] 18 U/L Normal 14-59 [facility] Comment on above: Performed By: #### A MY, CMP, LIPA #### [facility] [address] [place] [address] Dr. Melecio Chadwick Anion gap [Moles/Vol] 11.6 mmol/L Normal [facility] Comment on above: Performed By: #### A MY, CMP, LIPA #### [facility] [address] [place] [address] Dr. Melecio Chadwick AST [Catalytic activity/Vol] 14 U/L Critically low 15-37 [facility] Comment on above: Performed By: #### A MY, CMP, LIPA #### [facility] [address] [place] [address] Dr. Melecio Chadwick Bilirubin [Mass/Vol] 0.2 mg/dL Normal 0.2-1.0 [facility] Comment on above: Performed By: #### A MY, CMP, LIPA #### [facility] [address] [place] [address] Dr. Melecio Chadwick Calcium [Mass/Vol] 7.9 mg/dL Critically low 8.5-10.1 [facility] Comment on above: Performed By: #### A MY, CMP, LIPA #### [facility] [address] [place] [address] Dr. Melecio Chadwick Chloride [Moles/Vol] 105 mmol/L Normal 98-107 [facility] Comment on above: Performed By: #### A MY, CMP, LIPA #### [facility] [address] [place] [address] Dr. Melecio Chadwick CO2 [Moles/Vol] 25.8 mmol/L Normal 21.0-32.0 [facility] Comment on above: Performed By: #### A MY, CMP, LIPA #### [facility] [address] [place] [address] Dr. Melecio Chadwick Creatinine [Mass/Vol] 0.67 mg/dL Normal 0.55-1.02 [facility] Comment on above: Performed By: #### A MY, CMP, LIPA #### [facility] [address] [place] [address] Dr. Melecio Chadwick EGFR-AF ZAMBIAN >60 Normal >=60 [facility] Comment on above: Performed By: #### A MY, CMP, LIPA #### [facility] [address] [place] [address] Dr. Melecio Chadwick EGFR-NON AF ZAMBIAN >60 Normal >=60 [facility] Comment on above: Performed By: #### A MY, CMP, LIPA #### [facility] [address] [place] [address] Dr. Melecio Chadwick Globulin (S) [Mass/Vol] 3.6 g/dL Normal [facility] Comment on above: Performed By: #### A MY, CMP, LIPA #### [facility] [address] [place] [address] Dr. Melecio Chadwick Glucose [Mass/Vol] 95 mg/dL Normal 74-106 [facility] Comment on above: Performed By: #### A MY, CMP, LIPA #### [facility] [address] [place] [address] Dr. Melecio Chadwick Potassium [Moles/Vol] 3.4 mmol/L Critically low 3.5-5.1 [facility] Comment on above: Performed By: #### A MY CMP, LIPA #### [facility] [address] [place] [address] Dr. Melecio Chadwick Protein [Mass/Vol] 6.8 g/dL Normal 6.4-8.2 [facility] Comment on above: Performed By: #### A MY CMP, LIPA #### [facility] [address] [place] [address] Dr. Melecio Chadwick Sodium [Moles/Vol] 139 mmol/L Normal 136-145 [facility] Comment on above: Performed By: #### A MY CMP, LIPA #### [facility] [address] [place] [address] Dr. Melecio Chadwick Urea nitrogen [Mass/Vol] 6.0 mg/dL Critically low 7.0-18.0 [facility] Comment on above: Performed By: #### A MY, CMP, LIPA #### [facility] [address] [place] [address] Dr. Melecio Chadwick Urea nitrogen/Creatini ne [Mass ratio] 9.0 mg/mg Normal [facility] Comment on above: Performed By: #### A MY CMP, LIPA #### [facility] [address] [place] [address] Dr. Melecio Chadwick Intraoperative Noteon 2017 Intraoperative Note [id number]#1.00OTGTIFF Normal [facility] Intraoperative Noteon 2017 Intraoperative Note [id number]#1.00[facility] History and Physicalon 01-23 History and Physical [id number]#1.00[facility] Provider Orderson 01-23-2017 Protein [id number]#1.00[facility] Coding Summaryon 12-08-2016 Coding Summary CODING DATE: 017 [facility] STATUS: Home PAYOR: [employer] Insurance APC DESCRIPTION 5113 Level 3 Musculoskeletal Procedures ADMIT DX: REASON FOR VISIT DX: S83.242A Other tear of medial meniscus, current injury, left knee, initial encounter FINAL DX: PRINCIPAL: M22.42 Chondromalacia patellae, left knee SECONDARY: M94.9 Disorder of cartilage, unspecified PYMT PROC APC STAT DESCRIPTION DOCTOR NAME DATE 36663 5113 J1 Arthroscopy, knee, ARIES HARO 12/05/2016 [...] Tamanna Ambrocio Date Saved: 12/08/2016 03:51 pm [facility] Consent Formson 12-08-2016 Consent Forms [id number]#1.00[facility] Discharge Instructionson Discharge Instructions [id number]#[address] [place] [address] Intraoperative Noteon 2016 Intraoperative Note [id number]#1.00[facility] MAGR PACU Recordon 7 MAGR PACU Record MAGR PACU Record [facility] Primary Physician: ARIES HARO Finalized Date/Time: 12/08/16 10:49:55 Pt. Name: TAMY WALLS/Sex: 1980 FEMALE Med Rec #: [id number] Physician: ARIES HARO Financial #: [id number] Pt. Type: D Room/Bed: / Admit/Disch: 12/05/16 [...] Signed By: Sana Jarvis RN 12/08/16 10:49 [facility] Preoperative Recordon 1 [facility] Preoperative Record [facility] Pre-Op Record Summary Primary Physician: ARIES HARO Finalized Date/Time: 12/08/16 10:20:04 Pt. Name: TAMY WALLS/Sex: 1980 FEMALE Med Rec #: [id number] Physician: ARIES HARO Financial #: [id number] Pt. Type: D Room/Bed: / Admit/Disch: 12/05/16 [...] Signed By: Marium Ledbetter RN 12/08/16 10:20 [facility] Medication Managementon 11-11 Medication Management [id number] [facility] Telemetry Stripson 7 Telemetry Strips [id number]#1.00OTGTIFF [facility] Anesthesia Noteon 12-05-2016 Anesthesia Note Patient: RUFUS WALLS : 36 years Sex: FEMALE : [birth year]Associated Diagnoses: NoneAuthor: Bunny Briggs MDPostoperative InformationPost Operative Note: Operative Day.Anesthetic utilized: General.Health StatusAllergies:Allergic Reactions (All)Severity Not DocumentedDilaudid- Angio-oedema.Percocet 5/325- Nausea & vomiting.Problem list (past medical history):All ProblemsAnxiety / SNOMED CT 60679452 / ConfirmedPhysical ExaminationVS/MeasurementsV ital Signs (last 24 [...] on: 12/05/2016 12:07 EDT] Bunny Briggs MD [facility] Anesthesia Note Patient: RUFUS WALLS : 36 [...] (past medical history):All ProblemsAnxiety / SNOMED CT 41169170 / ConfirmedHistoriesFamily History:No family history items have been selected or recorded.Procedure history:Hysterectomy (208219588) in 2014 at 33 Years.Comments:11/28/2016 10:07 - Shayy Sylvester RNpartialAppendectomy (623200468) in 2013 at 32 Years.Tubal ligation (430047993) in 2004 at 24 Years.Cholecystectomy (74673983) in 2000 at 19 Years.Ear care (927246896).Comments:2016 10:06 - Shayy Sylvester RNtubes j2Kqmwmt History Alcohol Assessment Use: Never. Tobacco Assessment former smoker quit 2 yrs ago Tobacco Use:. Substance Abuse Assessment Substance use: Never..Social & Psychosocial VktdwlBhzbwkv65/20/2017 Alcohol Use: NeverSubstance Abuse11/28/2016 Substance use: ClzohBthjavx91/20/2017 Smoking tobacco use: former smoker quit 2 [...] on: 12/05/2016 10:25 EDT] Bunny Briggs MD [facility] MAGR Intraoperative Recordon 12-05-2016 MAGR Intraoperative Record MAGR Intra-Op Record Summary Primary Physician: ARIES HARO Finalized Date/Time: 12/05/16 11:52:54 Pt. Name: TAMY WALLS Cliff JaimeB./Sex: 1980 FEMALE Med Rec #: [id number] Physician: ARIES HARO Financial #: [id number] Pt. Type: D Room/Bed: / Admit/Disch: 12/05/16 [...] Role Performed Surgeon - Primary Anesthesiologist of Registered Safety Engineer Record Time In 12/05/16 10:37:00 12/05/16 10:37:00 12/05/16 10:37:00 Time Out 12/05/16 11:30:00 12/05/16 11:48:00 12/05/16 11:48:00 Procedure Arthroscopy Knee(Left) Arthroscopy Knee(Left) Arthroscopy Knee(Left) Last Modified By: Leslie Tolentino RN, Stephanie RN Sauer, Stephanie RN 12/05/16 11:52:02 12/05/16 11:52:02 12/05/16 11:52:02 Entry 4 Entry 5 Entry 6 Case Attendee Ro Morrison RN, Leigh-Ann CST Nikolaus, Linda M Role Performed Registered Safety Engineer [employer] Cutting Machine Operator Scrub Personnel Time In 12/05/16 10:37:00 12/05/16 [...] Signed By: Leslie Tolentino RN 12/05/16 11:52 [facility] MAGR Postoperative Recordon 12-05-2016 MAGR Postoperative Record MAGR Phase II Record Summary Primary Physician: ARIES HARO Finalized Date/Time: 12/05/16 14:50:11 Pt. Name: TAMY WALLS /Sex: 1980 FEMALE Med Rec #: [id number] Physician: ARIES HARO Financial #: [id number] Pt. Type: D Room/Bed: / Admit/Disch: 12/05/16 [...] 1320.....care assumed from Og Jarvis RN...report received 6522 - discharge instructions reviewed with patient, daughter, and grandmother. All verbalize understanding. Copy of instructions sent home with patient along with prescription for percocet......discharged per wheelchair to private auto driven by daughter for home Finalized By: Sana Jarvis RN Document Signatures Signed By: Sana Jarvis RN 12/05/16 14:50 [facility] Progress Note - Nurseon 10-2 Progress Note - Nurse Spoke with pt and informed her to be here at 9am and NPO after MN, she verbalizes understanding.[Electronical ly Signed on: 12/04/2016 09:42 EDT] Shayy Sylvester RN[Verified on: 12/04/2016 09:42 EDT] Shayy Sylvester RN [facility] Vital Signs Date Time Vital Sign Value Performing Clinician Faci lity 10-27-2022 20:03-0400 Diastolic blood pressure 76 mm[Hg] Anna Callahan MD Work Phone: [facility] 10-27-2022 20:03-0400 SaO2% (BldA) [Mass fraction] 98 % Anna Callahan MD Work Phone: [facility] 10-27-2022 20:03-0400 Systolic blood pressure 126 mm[Hg] Anna Callahan MD Work Phone: [facility] 10-27-2022 15:17-0400 Body weight 104.33 kg Anna Callahan MD Work Phone: [facility] 10-27-2022 15:15-0400 Body temperature 97.9 [degF] Anna Callahan MD Work Phone: [facility] 10-27-2022 15:15-0400 Heart rate 100 /min Anna Callahan MD Work Phone: [facility] 10-27-2022 15:15-0400 Respiratory rate 18 /min Anna Callahan MD Work Phone: [facility] Encounters Encounter Date Encounter Type Care Provider Facility Start: 10-27-2022 End: 10-27-2022 Emergency department patient visit Anna Callahan MD Work Phone: [facility] ED Comment on above: Left flank pain (Berenice oreilly Dx) Start: 04-21-2022 End: 04-22-[address] FRANCIA RODRIGUEZ . Facility:[facility] Start: 03-24-2022 End: 03-25-[address] FRANCIA RODRIGUEZ . Facility:[facility] Start: 03-19-2022 End: 03-19-[address] FRANCIA RODRIGUEZ . Facility: Start: 12-05-2016 End: 12-05-2016 Patient encounter [facility] Facility:[facility] Start: 11-29-2016 End: 11-29-2016 Patient encounter [facility] Facility:[facility] Procedures Date Procedure Procedure Detail Performing Clinician Start: 10-27-2022 Ct abdomen & pelvis w/contrast material Tyler Galarza PA-C Work Phone: Start: 10-27-2022 Urnls dip stick/tabl et reagent auto microscopy Anna Callahan MD Work Phone: Start: 10-27-2022 Comprehensive metabo lic panel Anna Callahan MD Work Phone: Plan of Treatment Date Care Activity Detail Author Start: 09-09-2022 Influenza vaccination Flu vaccine (# 1) [facility] Start: 2021 Lipid panel Lipids [facility] Start: 05-01-2011 Screening for malign ant neoplasm of cervix [facility] Start: 2002 Screening for malign ant neoplasm of cervix Pap smear [facility] Start: 2000 DTaP/Tdap/Td vaccine (1 - Tdap) DTaP/Tdap/Td vaccine (1 - Tdap) [facility] Start: 05-01-1999 Hepatitis C screening Hepatitis C sc reen [facility] Start: 1996 HIV screening HIV screen [facility] Start: 1993 Depression Screen Depression Screen [facility] Start: 1982 Varicella vaccine (1 of 2 - 2-dose childhood series) Varicella vaccine (1 of 2 - 2-dose childhood series) [facility] Start: 1981 COVID-19 Vaccine (#1) COVID-19 Vacci ne (#1) [facility] Start: 1981 Hepatitis B vaccine (1 of 3 - 3-dose series) Hepatitis B vaccine (1 of 3 - 3-dose series) [facility] End: 10-27-2022 Culture, Urine [facility] Work Phone: Comment on above: One Time for 1 Occur rences starting 10/27/2022 until 10/27/2022 Payers Date Payer Category Payer Unknown [id number] 1980 Unknown [id number] [id number] [id number] 1980 Unknown [id number] 2.16.84 [id number] 1980 Unknown [id number] [id number] [id number] 1980 Unknown [id number] [id number] 1958 Unknown [id number] Social History Date Type Detail Facility Tobacco smoking stat [facility] Tobacco smoking consumption unknown [facility] Start: 1980 Sex Assigned At Not on file B ON [facility] Gender identity Not on file [facility] Hospital Discharge instructions 10-27-2022 Discharge InstructionsAttachments [...] cannot be sent through Care Everywhere.Flank Pain (Estonian)documented in this encounter [facility] Evaluation note Note Date & Type Note Facility Evaluation note Diagnosis Left flank pain- Primary Abdominal pain, unspecified site documented in this encounter [facility] Summary Purpose Family History No Family History Records FoundNo Family History Records FoundNo Family History Records Found Advance Directives No Advanced Directives Records FoundNo Advanced Directives Records FoundNo Advanced Directives Records Found Additional Source Comments INFORMATION SOURCE (unrecogn ized section and content) DATE CREATED AUTHOR 08/22/2017 [facility] l DATE CREATED AUTHOR AUTHOR'S ORGANIZ ATION 04/28/2022 [facility] DATE CREATED AUTHOR AUTHOR'S ORGANIZ ATION 08/06/2023 [facility] Reason for Visit (unrecogniz ed [...] BE BASED ON THE PRIMARY CLINICAL RECORDS. [facility]. provides no warranty or guarantee of the accuracy or completeness of information in this document.
== END 2023-11-02 10:54 | disposition home or self-care (01) ==
LOC: RAD 10:54
PROVIDERS: PCP Family Medicine; Visit Provider Family Medicine
DX: M25.572 Pain in left ankle and joints of left foot (principal)
CPT/HCPCS: 73610

== ENCOUNTER 2023-11-09 15:29 | Outpatient (OUT) | payer OTHER, SELFPAY ==
--- OUTSIDE RECORDS SUMMARY | 2023-11-09 15:41 | XMS_ITS | CCD ---
Author Organization [facility] Care Team Providers Care Learning And Development Director Name Role Phone STEPANIC, ARIES C Unavailable [...] Unavailable HOY ., DR FELDMAN Consulting Unavailable WALNUT SHADE, DR MAURICIO Fraser Consulting Unavailable Unavailable Primary Care Provider ANNA Crain Attending Unavailable Allergies Allergy Classification Reported Allergen(s) Allergy Type Date of Onset Reaction(s) Facility (1 source) acetaminophen / oxyCODONE; Translations: [Percocet 5/325] Drug Allergy [facility] Repository (2 sources) HYDROmorphone; Translations: [Dilaudid] Drug Allergy [facility] Repository (1 source) egg extract Drug Allergy 02-09-2006 [facility] Repository (1 source) HYDROmorphone Drug Allergy 10-27-2022 [facility] Medications Current Medications Medication Drug Class(es) Dates [...] Diffon 08-05-2023 Abs. Basophil <0.03 Normal 0.00-0.20 [facility] Comment on above: Performed By: #### T , CDP #### [facility] [address] [place], [place] [id number] Reeling Machine Operator: Mauricio Irby MD #### LIPR, FT3, INSU, T4, FE, GLYHGB #### [address] [phone] Reeling Machine Operator: Casa Medrano MD Abs.Imm.Granulocy te 0.05 k/uL Normal 0.00-0.30 [facility] Comment on above: Performed By: #### T SH, CDP #### [address] [place] [phone] Reeling Machine Operator: Mauricio Irby MD #### LIPR, FT3, INSU, T4, FE, GLYHGB #### [place] [address] Reeling Machine Operator: Casa Medrano MD Abs.Neutrophil (Seg) 7.71 k/uL Normal 1.50-8.10 [facility] Comment on above: Performed By: #### T SH, CDP #### [address] [place] [phone] Reeling Machine Operator: Mauricio Irby MD #### LIPR, FT3, INSU, T4, FE, GLYHGB #### [place] [phone] Reeling Machine Operator: Casa Medrano MD Basophils/100 WBC (Bld) 0 % Normal 0-2 [facility] Comment on above: Performed By: #### T SH, CDP #### [address] [place] [phone] Reeling Machine Operator: Mauricio Irby MD #### LIPR, FT3, INSU, T4, FE, GLYHGB #### [address] [phone] Reeling Machine Operator: Casa Medrano MD Eosinophils (Bld) [#/Vol] 0.10 10*3/uL Normal 0.00-0.44 [facility] Comment on above: Performed By: #### T SH, CDP #### [address] [place] [address] Reeling Machine Operator: Mauricio Irby MD #### LIPR, FT3, INSU, T4, FE, GLYHGB #### [address] [phone] Reeling Machine Operator: Casa Medrano MD Eosinophils/100 WBC (Bld) 1 % Normal 1-4 [facility] Comment on above: Performed By: #### T SH, CDP #### [address] [place] [address] Reeling Machine Operator: Mauricio Irby MD #### LIPR, FT3, INSU, T4, FE, GLYHGB #### [address] [phone] Reeling Machine Operator: Casa Medrano MD Erythrocyte distribution width (RBC) [Ratio] 12.5 % Normal 11.8-14.4 [facility] Comment on above: Performed By: #### T SH, CDP #### [address] [place] [address] Reeling Machine Operator: Mauricio Irby MD #### LIPR, FT3, INSU, T4, FE, GLYHGB #### [address] [phone] Reeling Machine Operator: Casa Medrano MD Hematocrit (Bld) [Volume fraction] 45.1 % Normal 36.3-47.1 [facility] Comment on above: Performed By: #### T SH, CDP #### [address] [place] [address] Reeling Machine Operator: Mauricio Irby MD #### LIPR, FT3, INSU, T4, FE, GLYHGB #### [address] [phone] Reeling Machine Operator: Casa Medrano MD Hemoglobin (Bld) [Mass/Vol] 15.2 g/dL High 11.9-15.1 [facility] Comment on above: Performed By: #### T SH, CDP #### [facility] [address] [place] [address] Dr[place] [phone] Reeling Machine Operator: Mauricio Irby MD #### LIPR, FT3, INSU, T4, FE, GLYHGB #### [address] [address] Reeling Machine Operator: Casa Medrano MD Immature granulocytes/100 WBC (Bld) 1 % High 0 [facility] Comment on above: Performed By: #### T SH, CDP #### [address] [place] [phone] Reeling Machine Operator: Mauricio Irby MD #### LIPR, FT3, INSU, T4, FE, GLYHGB #### [place] [address] Reeling Machine Operator: Casa Medrano MD Lymphocytes (Bld) [#/Vol] 2.55 10*3/uL Normal 1.10-3.70 [facility] Comment on above: Performed By: #### T SH, CDP #### [facility] [address] [place] [address] Dr. [place] [phone] Reeling Machine Operator: Mauricio Irby MD #### LIPR, FT3, INSU, T4, FE, GLYHGB #### [address] [phone] Reeling Machine Operator: Casa Medrano MD Lymphocytes/100 WBC (Bld) 23 % Low 24-43 [facility] Comment on above: Performed By: #### T SH, CDP #### [facility] [address] [place] [address] Dr. [place] [phone] Reeling Machine Operator: Mauricio rIby MD #### LIPR, FT3, INSU, T4, FE, GLYHGB #### [place] [address] [place], [place] [phone] Reeling Machine Operator: Casa Medrano MD MCH (RBC) [Entitic mass] 31.6 pg Normal 25.2-33.5 [facility] Comment on above: Performed By: #### T SH, CDP #### [address] [place] [phone] Reeling Machine Operator: Mauricio Irby MD #### LIPR, FT3, INSU, T4, FE, GLYHGB #### [address] [phone] Reeling Machine Operator: Casa Medrano MD MCHC (RBC) [Mass/Vol] 33.7 g/dL Normal 28.4-34.8 [facility] Comment on above: Performed By: #### T SH, CDP #### [address] [place] [phone] Reeling Machine Operator: Mauricio Irby MD #### LIPR, FT3, INSU, T4, FE, GLYHGB #### [place] [address] Reeling Machine Operator: Casa Medrano MD MCV (RBC) [Entitic vol] 93.8 fL Normal 82.6-102.9 [facility] Comment on above: Performed By: #### T SH, CDP #### [address] [place] [phone] Reeling Machine Operator: Mauricio Irby MD #### LIPR, FT3, INSU, T4, FE, GLYHGB #### [place] [phone] Reeling Machine Operator: Casa Medrano MD Monocytes (Bld) [#/Vol] 0.60 10*3/uL Normal 0.10-1.20 [facility] Comment on above: Performed By: #### T SH, CDP #### [facility] [address] [place], [place] [phone] Reeling Machine Operator: Mauricio Irby MD #### LIPR, FT3, INSU, T4, FE, GLYHGB #### [address] [phone] Reeling Machine Operator: Casa Medrano MD Monocytes/100 WBC (Bld) 5 % Normal 3-12 [facility] Comment on above: Performed By: #### T SH, CDP #### [facility] [address] [place] [address] Reeling Machine Operator: Mauricio Irby MD #### LIPR, FT3, INSU, T4, FE, GLYHGB #### [address] [phone] Reeling Machine Operator: Casa Medrano MD Neutrophil (Seg) 70 % High 36-65 [facility] Comment on above: Performed By: #### T SH, CDP #### [facility] [address] [place] [address] [place] [address] Reeling Machine Operator: Mauricio Irby MD #### LIPR, FT3, INSU, T4, FE, GLYHGB #### [address] [address] Reeling Machine Operator: Casa Medrano MD NRBC Automated 0.0 per 100 WBC Normal 0.0 [facility] Comment on above: Performed By: #### T SH, CDP #### [facility] [address] [place] [address] Reeling Machine Operator: Mauricio Irby MD #### LIPR, FT3, INSU, T4, FE, GLYHGB #### [address] [phone] Reeling Machine Operator: Casa Medrano MD Platelet mean volume (Bld) [Entitic vol] 9.2 fL Normal 8.1-13.5 [facility] Comment on above: Performed By: #### T SH, CDP #### [address] [place], [place] [phone] Reeling Machine Operator: Mauricio Irby MD #### LIPR, FT3, INSU, T4, FE, GLYHGB #### [place] [address] [place] [address] Reeling Machine Operator: Casa Medrano MD Platelets (Bld) [#/Vol] 297 10*3/uL Normal 138-453 [facility] Comment on above: Performed By: #### T SH, CDP #### [address] [place], [place] [phone] Reeling Machine Operator: Mauricio Irby MD #### LIPR, FT3, INSU, T4, FE, GLYHGB #### [address] [address] Reeling Machine Operator: Casa Medrano MD RBC (Bld) [#/Vol] 4.81 10*6/uL Normal 3.95-5.11 [facility] Comment on above: Performed By: #### T SH, CDP #### [address] [place], [place] [phone] Reeling Machine Operator: Mauricio Irby MD #### LIPR, FT3, INSU, T4, FE, GLYHGB #### [address] [address] Reeling Machine Operator: Casa Medrano MD WBC (Bld) [#/Vol] 11.0 10*3/uL Normal 3.5-11.3 [facility] Comment on above: Performed By: #### T SH, CDP #### [address] [place], [place] [phone] Reeling Machine Operator: Mauricio Irby MD #### LIPR, FT3, INSU, T4, FE, GLYHGB #### [address] [phone] Reeling Machine Operator: Casa Medrano MD Hemoglobin A1Con 08-05-2023 Glucose [Mass/Vol] 100 mg/dL Normal [facility] Comment on above: Result Comment: The ADA and AACC recommend providing the estimated average glucose result to permit better patient understanding of their HBA1c result. Performed By: #### C JANIE RAMIREZ, CP #### [facility] [address] [place] [address] Dr. [place], [place] [phone] Reeling Machine Operator: Mauricio Irby MD HbA1c (Bld) [Mass fraction] 5.1 % Normal 4.0-6.0 [facility] Comment on above: Performed By: #### C JANIE RAMIREZ, CP #### [address] [place], [place] [phone] Reeling Machine Operator: Mauricio Irby MD Insulinon 08-05-2023 Insulin 19.2 mU/L Normal [facility] Comment on above: Performed By: #### T SH, CDP #### [address] [place], [place] [phone] Reeling Machine Operator: Mauricio Irby MD #### LIPR, FT3, INSU, T4, FE, GLYHGB #### [facility] [employer] [facility] [place], [place] [phone] Reeling Machine Operator: Casa Medrano MD Reference Range Normal [facility] Comment on above: Result Comment: Fast in.6-24.9 30 min: 20-112 60 min: 29-88 90 min: 26-84 120 min: 22-79 Performed By: #### T SH, CDP #### [facility] [address] [place] [address] [place] [address] Reeling Machine Operator: Mauricio Irby MD #### LIPR, FT3, INSU, T4, FE, GLYHGB #### [place] [id number] [place], [place] [phone] Reeling Machine Operator: Casa Medrano MD Ironon 08-05-2023 Iron [Mass/Vol] 68 ug/dL Normal 37-145 [facility] Comment on above: Performed By: #### C DP, LIP, CP #### [address] [place] [address] Reeling Machine Operator: Mauricio Irby MD Lipid Profileon 08-05-2023 Cholesterol [Mass/Vol] 171 mg/dL Normal 0-199 [facility] Comment on above: Result Comment: Cholesterol Guidelines: <200 Desirable 200-240 Borderline >240 Undesirable Performed By: #### T SH, CDP #### [address] [place] [address] Reeling Machine Operator: Mauricio Irby MD #### LIPR, FT3, INSU, T4, FE, GLYHGB #### [address] [phone] Reeling Machine Operator: Casa Medrano MD Cholesterol in HDL [Mass/Vol] 52 mg/dL Normal >40 [facility] Comment on above: Result Comment: HDL Guidelines: <40 Undesirable 40-59 Borderline >59 Desirable Performed By: #### T SH, CDP #### [address] [place] [address] Reeling Machine Operator: Mauricio Irby MD #### LIPR, FT3, INSU, T4, FE, GLYHGB #### [address] [phone] Reeling Machine Operator: Casa Medrano MD Cholesterol in LDL [Mass/Vol] 100 mg/dL Normal 0-100 [facility] Comment on above: Result Comment: LDL Guidelines: <100 Desirable 100-129 Near to/above Desirable 130-159 Borderline >159 Undesirable Direct (measured) LDL and calculated LDL are not interchangeable tests. Performed By: #### T SH, CDP #### [address] [place] [address] Reeling Machine Operator: Mauricio Irby MD #### LIPR, FT3, INSU, T4, FE, GLYHGB #### [place] [address] [place] [address] Reeling Machine Operator: Casa Medrano MD Cholesterol in VLDL [Mass/Vol] 19 mg/dL Normal [facility] Comment on above: Performed By: #### T SH, CDP #### [address] [place], [place] [phone] Reeling Machine Operator: Mauricio Irby MD #### LIPR, FT3, INSU, T4, FE, GLYHGB #### [address] [address] Reeling Machine Operator: Casa Medrano MD Cholesterol.total /Cholesterol in HDL [Mass ratio] 3.0 {ratio} Normal [facility] Comment on above: Performed By: #### T DANIEL, CDP #### [address] [place] [address] Reeling Machine Operator: Mauricio Irby MD #### LIPR, FT3, INSU, T4, FE, GLYHGB #### [address] [phone] Reeling Machine Operator: Casa Medrano MD Triglyceride [Mass/Vol] 93 mg/dL Normal <150 [facility] Comment on above: Result Comment: Triglyceride Guidelines: <150 Desirable 150-199 Borderline 200-499 High >499 Very high Based on AHA Guidelines for fasting triglyceride, November 2011. Performed By: #### T SH, CDP #### [address] [place], [place] [phone] Reeling Machine Operator: Mauricio Irby MD #### LIPR, FT3, INSU, T4, FE, GLYHGB #### [address] [address] Reeling Machine Operator: Casa Medrano MD T3, Freeon 08-05-2023 Free T3 [Mass/Vol] 2.90 pg/mL Normal 2.00-4.40 [facility] Comment on above: Performed By: #### C DP LIP, CP #### [address] [place] [address] Reeling Machine Operator: Mauricio Irby MD Thyroid Stim. Horm.on 2023 Thyroid Stim. Horm. 1.33 uIU/mL Normal 0.30-5.00 [facility] Comment on above: Performed By: #### T SH, CDP #### [address] [place] [address] Reeling Machine Operator: Mauricio Irby MD #### LIPR, FT3, INSU, T4, FE, GLYHGB #### [place] [address] [place], [place] [phone] Reeling Machine Operator: Casa Medrano MD Thyroxine T4on 08-05-2023 T4 [Mass/Vol] 9.9 ug/dL Normal 4.5-11.7 [facility] Comment on above: Performed By: #### T SH, CDP #### [address] [place] [address] Reeling Machine Operator: Mauricio Irby MD #### LIPR, FT3, INSU, T4, FE, GLYHGB #### [place] [address] [place], [place] 1879808 Reeling Machine Operator: Casa Medrano MD Cult,Urineon 10-28-2022 Cult,Urine Specimen Description .CLEAN CATCH URINE Culture NO SIGNIFICANT GROWTH Report Status FINAL 10/28/2022 Normal [facility] Comment on above: Performed By: #### C JANIE RAMIREZ, CP #### [address] [place] [address] Reeling Machine Operator: Mauricio Irby MD CBC with Auto Differentialon 10-27-2022 Basophils (Bld) [#/Vol] 0.03 10*3/uL [facility] Basophils/100 WBC (Bld) 0 % 0 - 2 % [facility] Eosinophils (Bld) [#/Vol] 0.07 10*3/uL [facility] Eosinophils/100 WBC (Bld) 1 % 1 - 4 % [facility] Erythrocyte distribution width (RBC) [Ratio] 12.6 % 11.8 - 14.4 % [facility] Hematocrit (Bld) [Volume fraction] 43.7 % 36.3 - 47.1 % [facility] Hemoglobin (Bld) [Mass/Vol] 14.3 g/dL 11.9 - 15.1 g/dL [facility] Immature granulocytes (Bld) [#/Vol] 0.04 10*3/uL [facility] Immature granulocytes/100 WBC (Bld) 0 % 0 [facility] Interpretation and review of laboratory results Abnormal [facility] Lymphocytes/100 WBC (Bld) 27 % 24 - 43 % [facility] Lymphocytes/100 WBC (Bld) 2.50 % [facility] MCH (RBC) [Entitic mass] 31.2 pg 25.2 - 33.5 pg [facility] MCHC (RBC) [Mass/Vol] 32.7 g/dL 28.4 - 34.8 g/dL [facility] MCV (RBC) [Entitic vol] 95.4 fL 82.6 - 102.9 fL [facility] Monocytes/100 WBC (Bld) 5 % 3 - 12 % [facility] Monocytes/100 WBC (Bld) 0.44 % [facility] Neutrophils/100 WBC (Bld) 67 % High 36 - 65 % [facility] Nucleated RBC/100 WBC (Bld) [Ratio] 0.0 % 0.0 per 100 WBC [facility] Platelet mean volume (Bld) [Entitic vol] 8.9 fL 8.1 - 13.5 fL [facility] Platelets (Bld) [#/Vol] 264 10*3/uL [facility] RBC (Bld) [#/Vol] 4.58 10*6/uL 3.95 - 5.1 1 m/uL [facility] Segmented neutrophils/100 WBC (Bld) 6.32 % [facility] WBC other (Bld) [#/Vol] 9.4 [facility] CBC with Diffon 10-27-2022 Abs. Basophil 0.03 k/uL Normal 0.00-0.20 [facility] Comment on above: Performed By: #### C DP, LIP, CP #### [facility] [address] [place] [address] [place] [address] Reeling Machine Operator: Mauricio Irby MD Abs.Imm.Granulocy te 0.04 k/uL Normal 0.00-0.30 [facility] Comment on above: Performed By: #### C DP, LIP, CP #### [address] [place] [address] Reeling Machine Operator: Mauricio Irby MD Abs.Neutrophil (Seg) 6.32 k/uL Normal 1.50-8.10 [facility] Comment on above: Performed By: #### C DP, LIP, CP #### [address] [place], [place] [address] Reeling Machine Operator: Mauricio Irby MD Basophils/100 WBC (Bld) 0 % Normal 0-2 [facility] Comment on above: Performed By: #### C DP, LIP, CP #### [address] [place] [address] Reeling Machine Operator: Mauricio Irby MD Eosinophils (Bld) [#/Vol] 0.07 10*3/uL Normal 0.00-0.44 [facility] Comment on above: Performed By: #### C DP, LIP, CP #### [address] [place], [facility]83 Reeling Machine Operator: Mauricio Irby MD Eosinophils/100 WBC (Bld) 1 % Normal 1-4 [facility] Comment on above: Performed By: #### C DP, LIP, CP #### [address] [place] [phone] Reeling Machine Operator: Mauricio Irby MD Erythrocyte distribution width (RBC) [Ratio] 12.6 % Normal 11.8-14.4 [facility] Comment on above: Performed By: #### C DP LIP, CP #### [facility] [address] [place], [place] [phone] Reeling Machine Operator: Mauricio Irby MD Hematocrit (Bld) [Volume fraction] 43.7 % Normal 36.3-47.1 [facility] Comment on above: Performed By: #### C DP, LIP, CP #### [facility] [address] [place] [address] Reeling Machine Operator: Mauricio Irby MD Hemoglobin (Bld) [Mass/Vol] 14.3 g/dL Normal 11.9-15.1 [facility] Comment on above: Performed By: #### C JAMES LIP, CP #### [address] [place], [place] [address] Reeling Machine Operator: Mauricio Irby MD Immature granulocytes/100 WBC (Bld) 0 % Normal 0 [facility] Comment on above: Performed By: #### C JAMES LIP, CP #### [address] [place] [address] Reeling Machine Operator: Mauricio Irby MD Lymphocytes (Bld) [#/Vol] 2.50 10*3/uL Normal 1.10-3.70 [facility] Comment on above: Performed By: #### C DP LIP, CP #### [facility] [address] [place] [address] Reeling Machine Operator: Mauricio Irby MD Lymphocytes/100 WBC (Bld) 27 % Normal 24-43 [facility] Comment on above: Performed By: #### C DP, LIP, CP #### [facility] [address] [place], [place] [phone] Reeling Machine Operator: Mauricio Irby MD MCH (RBC) [Entitic mass] 31.2 pg Normal 25.2-33.5 [facility] Comment on above: Performed By: #### C JANIE RAMIREZ, CP #### [address] [place], [place] 3362183 Reeling Machine Operator: Mauricio Irby MD MCHC (RBC) [Mass/Vol] 32.7 g/dL Normal 28.4-34.8 [facility] Comment on above: Performed By: #### C JANIE RAMIREZ, CP #### [address] [place] [address] Reeling Machine Operator: Mauricio Irby MD MCV (RBC) [Entitic vol] 95.4 fL Normal 82.6-102.9 [facility] Comment on above: Performed By: #### C JANIE RAMIREZ, CP #### [address] [place], [facility]83 Reeling Machine Operator: Mauricio Irby MD Monocytes (Bld) [#/Vol] 0.44 10*3/uL Normal 0.10-1.20 [facility] Comment on above: Performed By: #### C JANIE RAMIREZ, CP #### [address] [place], [place] [phone] Reeling Machine Operator: Mauricio Irby MD Monocytes/100 WBC (Bld) 5 % Normal 3-12 [facility] Comment on above: Performed By: #### C JANIE RAMIREZ, CP #### [address] [place], [place] [phone] Reeling Machine Operator: Mauricio Irby MD Neutrophil (Seg) 67 % High 36-65 [facility] Comment on above: Performed By: #### C JANIE RAMIREZ, CP #### [address] [place] [address] Reeling Machine Operator: Mauricio Irby MD NRBC Automated 0.0 per 100 WBC Normal 0.0 [facility] Comment on above: Performed By: #### C JAMES LIP, CP #### [address] [place], [facility]83 Reeling Machine Operator: Mauricio Irby MD Platelet mean volume (Bld) [Entitic vol] 8.9 fL Normal 8.1-13.5 [facility] Comment on above: Performed By: #### C JAMES LIP, CP #### [address] [place], [facility]83 [employer]eling Machine Operator: Mauricio Irby MD Platelets (Bld) [#/Vol] 264 10*3/uL Normal 138-453 [facility] Comment on above: Performed By: #### C JANIE RAMIREZ, CP #### [address] [place], [place] [phone] Reeling Machine Operator: Mauricio Irby MD RBC (Bld) [#/Vol] 4.58 10*6/uL Normal 3.95-5.11 [facility] Comment on above: Performed By: #### C JANIE RAMIREZ, CP #### [address] [place], [facility]83 Reeling Machine Operator: Mauricio Irby MD WBC (Bld) [#/Vol] 9.4 10*3/uL Normal 3.5-11.3 [facility] Comment on above: Performed By: #### C JAMES LIP, CP #### [address] [place], [facility]83 Reeling Machine Operator: Mauricio Irby MD CT ABDOMEN PELVIS W [...] Ronni Vaughn MD 10/27/22 Final result Normal [facility] CT ABDOMEN PELVIS W IV CONTR AST Additional Contrast? Noneon 10-27-2022 No acute abnormality identified. [facility] EXAMINATION: CT OF THE ABDOMEN [...] findings do not require dedicated imaging follow-up. [facility] Ronni Vaughn MD - 10/27/2022 [...] imaging follow-up. IMPRESSION: No acute abnormality identified. [facility] Radiology Study observation (narrative) [facility] CT ABDOMEN PELVIS W IV CONTR AST Additional Contrast? NoneOrdered By: Ronni Vaughn on 10-27-2022 [facility] Work Phone: Comp Metabolic Profon 2022 Albumin [Mass/Vol] 4.0 g/dL Normal 3.5-5.2 [facility] Comment on above: Performed By: #### C DP, LIP, CP #### [address] [place] [address] [employer]eling Machine Operator: Mauricio Irby MD Albumin/Glob Ratio 1.1 Normal 1.0-2.5 [facility] Comment on above: Performed By: #### C DP LIP, CP #### [address] [place] [address] [employer]eling Machine Operator: Mauricio Irby MD Alkaline Phos 82 U/L Normal 35-104 [facility] Comment on above: Performed By: #### C DP, LIP, CP #### [address] [place] [phone] [employer]eling Machine Operator: Mauricio Irby MD ALT [Catalytic activity/Vol] 11 U/L Normal 5-33 [facility] Comment on above: Performed By: #### C DP, LIP, CP #### [facility] [address] [place], [place] 8154983 [employer]eling Machine Operator: Mauricio Irby MD Anion gap [Moles/Vol] 8 mmol/L Low 9-17 [facility] Comment on above: Performed By: #### C DP, LIP, CP #### [facility] [address] [place], [place] [phone] Reeling Machine Operator: Mauricio Irby MD AST [Catalytic activity/Vol] 12 U/L Normal <32 [facility] Comment on above: Performed By: #### C DP LIP, CP #### [facility] [address] [place], [place] [id number] Reeling Machine Operator: Mauricio Irby MD Bilirubin [Mass/Vol] 0.2 mg/dL Low 0.3-1.2 [facility] Comment on above: Performed By: #### C JAMES LIP, CP #### [facility] [address] [place] [address] Dr[address] [place], [place] [id number] Reeling Machine Operator: Mauricio Irby MD BUN/CRE Ratio 11 Normal 9-20 [facility] Comment on above: Performed By: #### C DP LIP, CP #### [facility] [address] [place], [place] [id number] Reeling Machine Operator: Mauricio Irby MD Calcium [Mass/Vol] 9.2 mg/dL Normal 8.6-10.4 [facility] Comment on above: Performed By: #### C DP, LIP, CP #### [facility] [address] [place], [place] [id number] Reeling Machine Operator: Mauricio Irby MD Chloride [Moles/Vol] 102 mmol/L Normal 98-107 [facility] Comment on above: Performed By: #### C JANIE RAMIREZ, CP #### [facility] [address] [place] [address] Reeling Machine Operator: Mauricio Irby MD CO2 [Moles/Vol] 27 mmol/L Normal 20-31 [facility] Comment on above: Performed By: #### C JANIE RAMIREZ, CP #### [facility] [address] [place] [address] Reeling Machine Operator: Mauricio Irby MD Creatinine [Mass/Vol] 0.7 mg/dL Normal 0.5-0.9 [facility] Comment on above: Performed By: #### C JANIE RAMIREZ, CP #### [facility] [address] [place] [address] Reeling Machine Operator: Mauricio Irby MD GFR/1.73 sq M.predicted among non-blacks MDRD (S/P/Bld) [Vol rate/Area] mL/min/{1.73_m2} Normal >60 [facility] Comment on above: Result Comment: These results [...] By: #### C JANIE RAMIREZ, CP #### [facility] [address] [place] [address] Reeling Machine Operator: Mauricio Irby MD Glucose [Mass/Vol] 134 mg/dL High 70-99 [facility] Comment on above: Performed By: #### C JANIE RAMIREZ, CP #### [facility] [address] [place] [address] Reeling Machine Operator: Mauricio Irby MD Potassium [Moles/Vol] 4.1 mmol/L Normal 3.7-5.3 [facility] Comment on above: Performed By: #### C DP LIP, CP #### [facility] [address] [place], [place] [id number] Reeling Machine Operator: Mauricio Irby MD Protein [Mass/Vol] 7.7 g/dL Normal 6.4-8.3 [facility] Comment on above: Performed By: #### C JAMES LIP, CP #### [facility] [address] [place], [place] [phone] Reeling Machine Operator: Mauricio Irby MD Sodium [Moles/Vol] 137 mmol/L Normal 135-144 [facility] Comment on above: Performed By: #### C JANIE RAMIREZ, CP #### [facility] [address] [place], [place] [phone] Reeling Machine Operator: Mauricio Irby MD Urea nitrogen [Mass/Vol] 8 mg/dL Normal 6-20 [facility] Comment on above: Performed By: #### C JAMES LIP, CP #### [facility] [address] [place] [address] Reeling Machine Operator: Mauricio Irby MD Comprehensive Metabolic [facility] 10-27-2022 Albumin [Mass/Vol] 4.0 g/dL 3.5 - 5.2 g/dL [facility] Albumin/Globulin [Mass ratio] 1.1 {ratio} 1.0 - 2.5 [facility] ALP [Catalytic activity/Vol] 82 U/L 35 - 104 U/L [facility] ALT [Catalytic activity/Vol] 11 U/L 5 - 33 U/L [facility] Anion gap [Moles/Vol] 8 mmol/L Low 9 - 17 mmol/L [facility] AST [Catalytic activity/Vol] 12 U/L NINF - 32 U/L [facility] Bilirubin [Mass/Vol] 0.2 mg/dL Low 0.3 - 1.2 mg/dL [facility] Calcium [Mass/Vol] 9.2 mg/dL 8.6 - 10.4 mg/dL [facility] Chloride [Moles/Vol] 102 mmol/L 98 - 107 mmol/L [facility] CO2 [Moles/Vol] 27 mmol/L 20 - 31 mmol/L [facility] Creatinine [Mass/Vol] 0.7 mg/dL 0.5 - 0.9 mg/dL [facility] GFR/1.73 sq M.predicted MDRD (S/P/Bld) [Vol rate/Area] - PINF [facility] Comment on above: These results are not [...] 134 mg/dL High 70 - 99 mg/dL [facility] Potassium [Moles/Vol] 4.1 mmol/L 3.7 - 5.3 mmol/L [facility] Protein [Mass/Vol] 7.7 g/dL 6.4 - 8.3 g/dL [facility] Sodium [Moles/Vol] 137 mmol/L 135 - 144 mmol/L [facility] Urea nitrogen [Mass/Vol] 8 mg/dL 6 - 20 mg/dL [facility] Urea nitrogen/Creatini ne [Mass ratio] 11 mg/mg 9 - 20 [facility] Lactic Acidon 10-27-2022 Lactate (BldV) [Moles/Vol] 1.6 mmol/L 0.5 - 2.2 mmol/L [facility] Lactate [Moles/Vol] 1.6 mmol/L Normal 0.5-2.2 [facility] Comment on above: Performed By: #### C JANIE RAMIREZ CP #### [facility] [address] [place] [address] Reeling Machine Operator: Mauricio Irby MD Lipaseon 09-18-2023 Lipase [Catalytic activity/Vol] 67 U/L High 13 - 60 U/L [facility] Lipase [Catalytic activity/Vol] 67 U/L High 13-60 [facility] Comment on above: Performed By: #### C DP, LIP, CP #### [facility] [address] [place] [address] Reeling Machine Operator: Mauricio Irby MD No Panel Informationon 10-27 Interpretation and review of laboratory results Abnormal [facility] Urinalysis w/ Microon 2022 Bacteria 1+ Abnormal NONE [facility] Comment on above: Performed By: #### U AMIC #### [facility] [address] [place], [place] [phone] Reeling Machine Operator: Mauricio Irby MD Bilirubin, SemiQt,Ur Negative Normal NEG [facility] Comment on above: Performed By: #### U AMIC #### [facility] [address] [place], [place] [phone] Reeling Machine Operator: Mauricio Irby MD Blood, Urine Negative Normal NEG [facility] Comment on above: Performed By: #### U AMIC #### [facility] [address] [place], [place] [phone] Reeling Machine Operator: Mauricio Irby MD Clarity (U) Clear Normal CLEAR [facility] Comment on above: Performed By: #### U AMIC #### [facility] [address] [place], [place] [phone] Reeling Machine Operator: Mauricio Irby MD Color (U) Yellow Normal YEL [facility] Comment on above: Performed By: #### U AMIC #### [facility] [address] [place], [place] [phone] Reeling Machine Operator: Mauricio Irby MD Epithelial cells LM Ql (Urine sed) 10 TO 20 Normal 0-25 [facility] Comment on above: Performed By: #### U AMIC #### [facility] [address] [place], [place] [phone] Reeling Machine Operator: Mauricio Irby MD Glucose Ql (U) Negative Normal NEG [facility] Comment on above: Performed By: #### U AMIC #### [facility] [address] [place] [address] Dr. [place], [place] [phone] Reeling Machine Operator: Mauricio Irby MD Ketones Ql (U) Negative Normal NEG [facility] Comment on above: Performed By: #### U AMIC #### [facility] [address] [place] [address] Dr[place], [place] [phone] Reeling Machine Operator: Mauricio Irby MD Leukocyte esterase Test strip Ql (U) Negative Normal NEG [facility] Comment on above: Performed By: #### U AMIC #### [facility] [address] [place] [address] Dr. [place], [place] [phone] Reeling Machine Operator: Mauricio Irby MD Nitrite,Ur Negative Normal NEG [facility] Comment on above: Performed By: #### U AMIC #### [facility] [address] [place] [address] [place] [address] Reeling Machine Operator: Mauricio Irby MD PH,Ur 6.0 Normal 5.0-9.0 [facility] Comment on above: Performed By: #### U AMIC #### [facility] [address] [place] [address] [place] [address] Reeling Machine Operator: Mauricio Irby MD Protein Ql (U) Negative Normal NEG [facility] Comment on above: Performed By: #### U AMIC #### [facility] [address] [place] [address] Dr. [place], [place] [phone] Reeling Machine Operator: Mauricio Irby MD Spec. [place],Ur 1.010 Normal 1.010-1.020 [facility] Comment on above: Performed By: #### U AMIC #### [facility] [address] [place] [address] Dr. [place], [place] [phone] Reeling Machine Operator: Mauricio Irby MD Urine RBC's 0 TO 2 Normal 0-2 [facility] Comment on above: Performed By: #### U AMIC #### [facility] [address] [place], [place] [phone] Reeling Machine Operator: Mauricio Irby MD Urine WBC's 0 TO 2 Normal 0-5 [facility] Comment on above: Performed By: #### U AMIC #### [facility] [address] [place], [place] [phone] Reeling Machine Operator: Mauricio Irby MD Urobilinogen,Ur Normal Normal 0.0-1.0 [facility] Comment on above: Performed By: #### U AMIC #### [facility] [address] [place] [address] [place], [place] [id number] Reeling Machine Operator: Mauricio Irby MD Urinalysis with Microscopico n 10-27-2022 Bacteria LM Ql (Urine sed) 1+ Abnormal None [facility] Bilirubin Ql (U) Negative NEGATIVE [facility] Clarity (U) Clear Clear [facility] Color (U) Yellow Yellow [facility] Epithelial cells LM.HPF (Urine sed) [#/Area] 10 TO 20 [facility] Glucose Test strip (U) [Mass/Vol] Negative NEGATIVE mg/dL [facility] Hemoglobin Auto test strip Ql (U) Negative NEGATIVE [facility] Interpretation and review of laboratory results Abnormal [facility] Ketones (U) [Mass/Vol] Negative NEGATIVE mg/dL [facility] Leukocyte esterase Test strip Ql (U) Negative NEGATIVE [facility] Nitrite Ql (U) Negative NEGATIVE [facility] pH (U) 6.0 [pH] 5.0 - 9.0 [facility] Protein (U) [Mass/Vol] Negative NEGATIVE mg/dL [facility] RBC LM.HPF (Urine sed) [#/Area] 0 TO 2 [facility] Specific gravity (U) [Rel density] 1.010 1.010 - 1.020 [facility] Urobilinogen Qn (U) Normal 0.0 - 1.0 EU/dL [facility] WBC LM.HPF (Urine sed) [#/Area] 0 TO 2 [facility] XR ABD FLAT UP_PA Joyce 03-25 [...] MAURICIO LYONS Date: 2022-03-25 08:01 Normal [facility] AMYLASEon 03-24-2022 Amylase [Catalytic activity/Vol] 36 U/L Normal 25-115 [facility] Comment on above: Performed By: #### C MP, DARION, LIPA #### [facility] [address] [place] [address] Dr. Melecio Chadwick CBC AUTO DIFFon 03-24-2022 BASO # 0.0 103/ul Normal 0.0-0.1 [facility] Comment on above: Performed By: #### C BC #### [facility] [address] [place] [address] Dr. Melecio Chadwick Basophils/100 WBC (Bld) 0.2 % Normal 0.2-2.0 [facility] Comment on above: Performed By: #### C BC #### [facility] [address] [place] [address] Dr. Melecio Chadwick EO # 0.1 103/ul Normal 0.0-0.7 [facility] Comment on above: Performed By: #### C BC #### [facility] [address] [place] [address] Dr. Melecio Chadwick Eosinophils/100 WBC (Bld) 1.1 % Normal 0.9-7.0 [facility] Comment on above: Performed By: #### C BC #### [facility] [address] [place] [address] Dr. Melecio Chadwick Erythrocyte distribution width (RBC) [Ratio] 12.3 % Normal 11.0-15.0 [facility] Comment on above: Performed By: #### C BC #### [facility] [address] [place] [address] Dr. Melecio Chadwick Hematocrit (Bld) [Volume fraction] 42.5 % Normal 36.0-48.0 [facility] Comment on above: Performed By: #### C BC #### [facility] [address] [place] [address] Dr. Melecio Chadwick Hemoglobin (Bld) [Mass/Vol] 14.3 g/dL Normal 12.0-16.0 [facility] Comment on above: Performed By: #### C BC #### [facility] [address] [place] [address] Dr. Melecio Chadwick IG # 0.03 10e3/ul Normal 0.00-0.03 [facility] Comment on above: Performed By: #### C BC #### [facility] [address] [place] [address] Dr. Melecio Chadwick IG % 0.3 % Normal 0.0-0.5 [facility] Comment on above: Performed By: #### C BC #### [facility] [address] [place] [address] Dr. Melecio Chadwick LYMPH # 3.1 103/ul Normal 1.2-3.8 [facility] Comment on above: Performed By: #### C BC #### [facility] [address] [place] [address] Dr. Melecio Chadwick Lymphocytes/100 WBC (Bld) 29.8 % Normal 20.5-60.0 [facility] Comment on above: Performed By: #### C BC #### [facility] [address] [place] [address] Dr. Melecio Chadwick MANUAL DIFF REQ NO Normal [facility] Comment on above: Performed By: #### C BC #### [facility] [address] [address] [address] Melecio Chadwick MCH (RBC) [Entitic mass] 31.0 pg Normal 26.7-34.0 [facility] Comment on above: Performed By: #### C BC #### [facility] [address] [place] [address] Dr. Melecio Chadwick MCHC (RBC) [Mass/Vol] 33.6 g/dL Normal 29.9-35.2 [facility] Comment on above: Performed By: #### C BC #### [facility] [address] [place] [address] Dr. Melecio Chadwick MCV (RBC) [Entitic vol] 92.2 fL Normal 81.0-99.0 [facility] Comment on above: Performed By: #### C BC #### [facility] [address] [place] [address] Dr. Melecio Chadwick MONO # 0.6 103/ul Normal 0.3-0.8 [facility] Comment on above: Performed By: #### C BC #### [facility] [address] [place] [address] Dr. Melecio Chadwick Monocytes/100 WBC (Bld) 5.8 % Normal 1.7-12.0 [facility] Comment on above: Performed By: #### C BC #### [facility] [address] [place] [address] Dr. Melecio Chadwick NEUT # 6.5 103/ul Normal 1.4-6.5 [facility] Comment on above: Performed By: #### C BC #### [facility] [address] [place] [address] Dr. Melecio Chadwick Neutrophils/100 WBC (Bld) 62.8 % Normal 43.0-75.0 [facility] Comment on above: Performed By: #### C BC #### [facility] [address] [place] [address] Dr. Melecio Chadwick Platelet mean volume (Bld) [Entitic vol] 9.0 fL Critically low 9.5-13.5 [facility] Comment on above: Performed By: #### C BC #### [facility] [address] [place] [address] Dr. Melecio Chadwick PLT 268 103/ul Normal 150-450 [facility] Comment on above: Performed By: #### C BC #### [facility] [address] [place] [address] Dr. Melecio Chadwick RBC 4.61 106/ul Normal 4.20-5.40 [facility] Comment on above: Performed By: #### C BC #### [facility] [address] [place] [address] Dr. Melecio Chadwick WBC 10.4 103/ul Normal 4.0-11.0 [facility] Comment on above: Performed By: #### C BC #### [facility] [address] [place] [address] Dr. Melecio Chadwick LIPASEon 03-24-2022 Lipase [Catalytic activity/Vol] 114.0 U/L Normal 73.0-393.0 [facility] Comment on above: Performed By: #### C MP DARION, LIPA #### [facility] [address] [place] [address] Dr. Melecio Chadwick PROF 14(COMP METB)on 023 Albumin [Mass/Vol] 3.5 g/dL Normal 3.4-5.0 [facility] Comment on above: Performed By: #### C MP, DARION, LIPA #### [facility] [address] [place] [address] Dr. Melecio Chadwick Albumin/Globulin [Mass ratio] 0.8 {ratio} Normal [facility] Comment on above: Performed By: #### C MP, DARION, LIPA #### [facility] [address] [place] [address] Dr. Melecio Chadwick ALP [Catalytic activity/Vol] 85 U/L Normal 46-116 [facility] Comment on above: Performed By: #### C MP, DARION, LIPA #### [facility] [address] [place] [address] Dr. Melecio Chadwick ALT [Catalytic activity/Vol] 21 U/L Normal 14-59 [facility] Comment on above: Performed By: #### C MP, DARION, LIPA #### [facility] [address] [place] [address] Dr. Melecio Chadwick Anion gap [Moles/Vol] 11.6 mmol/L Normal [facility] Comment on above: Performed By: #### C MP, DARION, LIPA #### [facility] [address] [place] [address] Dr. Melecio Chadwick AST [Catalytic activity/Vol] 15 U/L Normal 15-37 [facility] Comment on above: Performed By: #### C MP, DARION, LIPA #### [facility] [address] [place] [address] Dr. Melecio Chadwick Bilirubin [Mass/Vol] 0.3 mg/dL Normal 0.2-1.0 [facility] Comment on above: Performed By: #### C MP, DARION, LIPA #### [facility] [address] [place] [address] Dr. Melecio Chadwick Calcium [Mass/Vol] 8.8 mg/dL Normal 8.5-10.1 [facility] Comment on above: Performed By: #### C MP, DARION, LIPA #### [facility] [address] [place] [address] Dr. Melecio Chadwick Chloride [Moles/Vol] 102 mmol/L Normal 98-107 [facility] Comment on above: Performed By: #### C MP, DARION, LIPA #### [facility] [address] [place] [address] Dr. Melecio Chadwick CO2 [Moles/Vol] 28.5 mmol/L Normal 21.0-32.0 [facility] Comment on above: Performed By: #### C MP, DARION, LIPA #### [facility] [address] [place] [address] Dr. Melecio Chadwick Creatinine [Mass/Vol] 0.76 mg/dL Normal 0.55-1.02 [facility] Comment on above: Performed By: #### C MP, DARION, LIPA #### [facility] [address] [place] [address] Dr. Melecio Chadwick EGFR-AF LATVIAN >60 Normal >=60 [facility] Comment on above: Performed By: #### C DARION LOGAN, LIPA #### [facility] [address] [place] [address] Dr. Melecio Chadwick EGFR-NON AF LATVIAN >60 Normal >=60 [facility] Comment on above: Performed By: #### C MP, DARION, LIPA #### [facility] [address] [place] [address] Dr. Melecio Chadwick Globulin (S) [Mass/Vol] 4.2 g/dL Normal [facility] Comment on above: Performed By: #### C DARION LOGAN, LIPA #### [facility] [address] [place] [address] Dr. Melecio Chadwick Glucose [Mass/Vol] 97 mg/dL Normal 74-106 [facility] Comment on above: Performed By: #### C DOREEN DARION, LIPA #### [facility] [address] [place] [address] Dr. Melecio Chadwick Potassium [Moles/Vol] 4.1 mmol/L Normal 3.5-5.1 [facility] Comment on above: Performed By: #### C DARION LOGAN, LIPA #### [facility] [address] [place] [address] Dr. Melecio Chadwick Protein [Mass/Vol] 7.7 g/dL Normal 6.4-8.2 [facility] Comment on above: Performed By: #### C DOREEN DARION, LIPA #### [facility] [address] [place] [address] Dr. Melecio Chadwick Sodium [Moles/Vol] 138 mmol/L Normal 136-145 [facility] Comment on above: Performed By: #### C DOREEN DARION, LIPA #### [facility] [address] [place] [address] Dr. Melecio Chadwick Urea nitrogen [Mass/Vol] 9.0 mg/dL Normal 7.0-18.0 [facility] Comment on above: Performed By: #### C DOREEN DARION, LIPA #### [facility] [address] [place] [address] Dr. Melecio Chadwick Urea nitrogen/Creatini ne [Mass ratio] 11.8 mg/mg Normal [facility] Comment on above: Performed By: #### C MP, DARION, LIPA #### [facility] [address] [place] [address] Dr. Melecio Chadwick AMYLASEon 03-19-2022 Amylase [Catalytic activity/Vol] 44 U/L Normal 25-115 [facility] Comment on above: Performed By: #### A MY, CMP, LIPA #### [facility] [address] [place] [address] Dr. Melecio Chadwick CBC AUTO DIFFon 03-19-2022 BASO # 0.0 103/ul Normal 0.0-0.1 [facility] Comment on above: Performed By: #### C BC #### [facility] [address] [place] [address] Dr. Melecio Chadwick Basophils/100 WBC (Bld) 0.2 % Normal 0.2-2.0 [facility] Comment on above: Performed By: #### C BC #### [facility] [address] [place] [address] Dr. Melecio Chadwick EO # 0.1 103/ul Normal 0.0-0.7 [facility] Comment on above: Performed By: #### C BC #### [facility] [address] [place] [address] Dr. Melecio Chadwick Eosinophils/100 WBC (Bld) 1.5 % Normal 0.9-7.0 [facility] Comment on above: Performed By: #### C BC #### [facility] [address] [place] [address] Dr. Melecio Chadwick Erythrocyte distribution width (RBC) [Ratio] 12.4 % Normal 11.0-15.0 [facility] Comment on above: Performed By: #### C BC #### [facility] [address] [place] [address] Dr. Melecio Chadwick Hematocrit (Bld) [Volume fraction] 41.8 % Normal 36.0-48.0 [facility] Comment on above: Performed By: #### C BC #### [facility] [address] [place] [address] Dr. Melecio Chadwick Hemoglobin (Bld) [Mass/Vol] 13.2 g/dL Normal 12.0-16.0 [facility] Comment on above: Performed By: #### C BC #### [facility] [address] [place] [address] Dr. Melecio Chadwick IG # 0.02 10e3/ul Normal 0.00-0.03 [facility] Comment on above: Performed By: #### C BC #### [facility] [address] [place] [address] Dr. Melecio Cahdwick IG % 0.2 % Normal 0.0-0.5 [facility] Comment on above: Performed By: #### C BC #### [facility] [address] [place] [address] Dr. Melecio Chadwick LYMPH # 3.3 103/ul Normal 1.2-3.8 [facility] Comment on above: Performed By: #### C BC #### [facility] [address] [place] [address] Dr. Melecio Chadwick Lymphocytes/100 WBC (Bld) 38.0 % Normal 20.5-60.0 [facility] Comment on above: Performed By: #### C BC #### [facility] [address] [place] [address] Dr. Melecio Chadwick MANUAL DIFF REQ NO Normal [facility] Comment on above: Performed By: #### C BC #### [facility] [address] [place] [address] Dr. Melecio Chadwick MCH (RBC) [Entitic mass] 30.9 pg Normal 26.7-34.0 [facility] Comment on above: Performed By: #### C BC #### [facility] [address] [place] [address] Dr. Melecio Chadwick MCHC (RBC) [Mass/Vol] 31.6 g/dL Normal 29.9-35.2 [facility] Comment on above: Performed By: #### C BC #### [facility] [id number] Melecio hCadwick MCV (RBC) [Entitic vol] 97.9 fL Normal 81.0-99.0 [facility] Comment on above: Performed By: #### C BC #### [facility] [address] [place] [address] Dr. Melecio Chadwcik MONO # 0.4 103/ul Normal 0.3-0.8 [facility] Comment on above: Performed By: #### C BC #### [facility] [address] [place] [address] Dr. Melecio Chadwick Monocytes/100 WBC (Bld) 4.6 % Normal 1.7-12.0 [facility] Comment on above: Performed By: #### C BC #### [facility] [address] [place] [address] Dr. Melecio Chadwick NEUT # 4.8 103/ul Normal 1.4-6.5 [facility] Comment on above: Performed By: #### C BC #### [facility] [address] [place] [address] Dr. Melecio Chadwick Neutrophils/100 WBC (Bld) 55.5 % Normal 43.0-75.0 [facility] Comment on above: Performed By: #### C BC #### [facility] [address] [place] [address] Dr. Melecio Chadwick Platelet mean volume (Bld) [Entitic vol] 9.7 fL Normal 9.5-13.5 [facility] Comment on above: Performed By: #### C BC #### [facility] [address] [place] [address] Dr. Melecio Chadwick PLT 258 103/ul Normal 150-450 [facility] Comment on above: Performed By: #### C BC #### [facility] [address] [place] [address] Dr. Melecio Chadwick RBC 4.27 106/ul Normal 4.20-5.40 [facility] Comment on above: Performed By: #### C BC #### [facility] [address] [place] [address] Dr. Melecio Chadwick WBC 8.7 103/ul Normal 4.0-11.0 [facility] Comment on above: Performed By: #### C BC #### [facility] [address] [place] [address] Dr. Melecio Chadwick LIPASEon 03-19-2022 Lipase [Catalytic activity/Vol] 119.0 U/L Normal 73.0-393.0 [facility] Comment on above: Performed By: #### A MY, CMP, LIPA #### [facility] [address] [place] [address] Dr. Melecio Chadwick PROF 14(COMP METB)on 023 Albumin [Mass/Vol] 3.2 g/dL Critically low 3.4-5.0 [facility] Comment on above: Performed By: #### A MY, CMP, LIPA #### [facility] [address] [place] [address] Dr. Melecio Chadwick Albumin/Globulin [Mass ratio] 0.9 {ratio} Normal [facility] Comment on above: Performed By: #### A MY, CMP, LIPA #### [facility] [address] [place] [address] Dr. Melecio Chadwick ALP [Catalytic activity/Vol] 76 U/L Normal 46-116 [facility] Comment on above: Performed By: #### A MY, CMP, LIPA #### [facility] [address] [place] [address] Dr. Melecio Chadwick ALT [Catalytic activity/Vol] 18 U/L Normal 14-59 [facility] Comment on above: Performed By: #### A MY, CMP, LIPA #### [facility] [address] [place] [address] Dr. Melecio Chadwick Anion gap [Moles/Vol] 11.6 mmol/L Normal [facility] Comment on above: Performed By: #### A MY, CMP, LIPA #### [facility] [address] [place] [address] Dr. Melecio Chadwick AST [Catalytic activity/Vol] 14 U/L Critically low 15-37 [facility] Comment on above: Performed By: #### A MY, CMP, LIPA #### [facility] [address] [place] [address] Dr. Melecio Chadwick Bilirubin [Mass/Vol] 0.2 mg/dL Normal 0.2-1.0 [facility] Comment on above: Performed By: #### A MY, CMP, LIPA #### [facility] [address] [place] [address] Dr. Melecio Chadwick Calcium [Mass/Vol] 7.9 mg/dL Critically low 8.5-10.1 [facility] Comment on above: Performed By: #### A MY, CMP, LIPA #### [facility] [address] [place] [address] Dr. Melecio Chadwick Chloride [Moles/Vol] 105 mmol/L Normal 98-107 [facility] Comment on above: Performed By: #### A MY, CMP, LIPA #### [facility] [address] [place] [address] Dr. Melecio Chadwick CO2 [Moles/Vol] 25.8 mmol/L Normal 21.0-32.0 [facility] Comment on above: Performed By: #### A MY, CMP, LIPA #### [facility] [address] [place] [address] Dr. Melecio Chadwick Creatinine [Mass/Vol] 0.67 mg/dL Normal 0.55-1.02 [facility] Comment on above: Performed By: #### A MY, CMP, LIPA #### [facility] [address] [place] [address] Dr. Melecio Chadwick EGFR-AF LATVIAN >60 Normal >=60 [facility] Comment on above: Performed By: #### A MY, CMP, LIPA #### [facility] [address] [place] [address] Dr. Melecio Chadwick EGFR-NON AF LATVIAN >60 Normal >=60 [facility] Comment on above: Performed By: #### A MY, CMP, LIPA #### [facility] [address] [place] [address] Dr. Melecio Chadwick Globulin (S) [Mass/Vol] 3.6 g/dL Normal [facility] Comment on above: Performed By: #### A MY, CMP, LIPA #### [facility] [address] [place] [address] Dr. Melecio Chadwick Glucose [Mass/Vol] 95 mg/dL Normal 74-106 [facility] Comment on above: Performed By: #### A MY, CMP, LIPA #### [facility] [address] [place] [address] Dr. Melecio Chadwick Potassium [Moles/Vol] 3.4 mmol/L Critically low 3.5-5.1 [facility] Comment on above: Performed By: #### A MY CMP, LIPA #### [facility] [address] [place] [address] Dr. Melecio Chadwick Protein [Mass/Vol] 6.8 g/dL Normal 6.4-8.2 [facility] Comment on above: Performed By: #### A MY CMP, LIPA #### [facility] [address] [place] [address] Dr. Melecio Chadwick Sodium [Moles/Vol] 139 mmol/L Normal 136-145 [facility] Comment on above: Performed By: #### A MY CMP, LIPA #### [facility] [address] [place] [address] Dr. Melecio Chadwick Urea nitrogen [Mass/Vol] 6.0 mg/dL Critically low 7.0-18.0 [facility] Comment on above: Performed By: #### A MY, CMP, LIPA #### [facility] [address] [place] [address] Dr. Melecio Chadwick Urea nitrogen/Creatini ne [Mass ratio] 9.0 mg/mg Normal [facility] Comment on above: Performed By: #### A MY CMP, LIPA #### [facility] [address] [place] [address] Dr. Melecio Chadwick Intraoperative Noteon 2017 Intraoperative Note [id number]#1.00OTGTIFF Normal [facility] Intraoperative Noteon 2017 Intraoperative Note [id number]#1.00[facility] History and Physicalon 01-23 History and Physical [id number]#1.00[facility] Provider Orderson 01-23-2017 Protein [id number]#1.00[facility] Coding Summaryon 12-08-2016 Coding Summary CODING DATE: 017 [facility] STATUS: Home PAYOR: [employer] APC DESCRIPTION 5113 Level 3 Musculoskeletal Procedures ADMIT DX: REASON FOR VISIT DX: S83.242A Other tear of medial meniscus, current injury, left knee, initial encounter FINAL DX: PRINCIPAL: M22.42 Chondromalacia patellae, left knee SECONDARY: M94.9 Disorder of cartilage, unspecified PYMT PROC APC STAT DESCRIPTION DOCTOR NAME DATE 45825 5113 J1 Arthroscopy, knee, ARIES HARO 12/05/2016 [...] Tamanna Ambrocio Date Saved: 12/08/2016 03:51 pm [facility] Consent Formson 12-08-2016 Consent Forms [id number]#1.00[facility] Discharge Instructionson Discharge Instructions [id number]#[address] [place] [address] Intraoperative Noteon 2016 Intraoperative Note [id number]#1.00[facility] MAGR PACU Recordon 7 MAGR PACU Record MAGR PACU Record [facility] Primary Physician: ARIES HARO Finalized Date/Time: 12/08/16 10:49:55 Pt. Name: TAMY WALLS/Sex: 1980 FEMALE Med Rec #: [id number] Physician: ARIES HARO Financial #: [id number] Pt. Type: D Room/Bed: / Admit/Disch: 12/05/16 08:43:35 - 12/05/16 14:02:00 Institution: PACU Case Times MAGR Entry 1 In PACU I 12/05/16 11:45:00 Ready for PACU I 12/05/16 12:40:00 Discharge Discharge from PACU 12/05/16 12:40:00 I Last Modified By: aSna Jarvis RN 12/08/16 10:49:52 General Comments: Awake, [...] Sana Jarvis RN 12/08/16 10:49 [facility] Preoperative Recordon 1 [facility] Preoperative Record [facility] Pre-Op Record Summary Primary Physician: ARIES HARO Finalized Date/Time: 12/08/16 10:20:04 Pt. Name: TAMY WALLS/Sex: 1980 FEMALE Med Rec #: [id number] Physician: ARIES HARO Financial #: [id number] Pt. Type: D Room/Bed: / Admit/Disch: 12/05/16 [...] Signed By: Marium Ledbetter RN 12/08/16 10:20 [facility] Medication Managementon 11-11 Medication Management [id number]#1.00OTGTIFF [facility] Telemetry Stripson 7 Telemetry Strips [id number]#1.00OTGTIFF [facility] Anesthesia Noteon 12-05-2016 Anesthesia Note Patient: RUFUS WALLS : 36 years Sex: FEMALE : [birth year]Associated Diagnoses: NoneAuthor: Bunny Briggs MDPostoperative InformationPost Operative Note: Operative Day.Anesthetic utilized: General.Health StatusAllergies:Allergic Reactions (All)Severity Not DocumentedDilaudid- Angio-oedema.Percocet 5/325- Nausea & vomiting.Problem list (past medical history):All ProblemsAnxiety / SNOMED CT 48609573 / ConfirmedPhysical ExaminationVS/MeasurementsV ital Signs (last 24 [...] on: 12/05/2016 12:07 EDT] Bunny Briggs MD [facility] Anesthesia Note Patient: RUFUS WALLS : 36 [...] (past medical history):All ProblemsAnxiety / SNOMED CT 32948522 / ConfirmedHistoriesFamily History:No family history items have been selected or recorded.Procedure history:Hysterectomy (516595381) in 2014 at 33 Years.Comments:11/28/2016 10:07 - Shayy Sylvester RNpartialAppendectomy (720206179) in 2013 at 32 Years.Tubal ligation (706982533) in 2004 at 24 Years.Cholecystectomy (08730523) in 2000 at 19 Years.Ear care (119071099).Comments:2016 10:06 - Shayy Sylvester RNtubes n2Zoizns History Alcohol Assessment Use: Never. Tobacco Assessment former smoker quit 2 yrs ago Tobacco Use:. Substance Abuse Assessment Substance use: Never..Social & Psychosocial MeuaktFqdsvnk56/20/2017 Alcohol Use: NeverSubstance Abuse11/28/2016 Substance use: SwfoeGciaueg60/20/2017 Smoking tobacco use: former smoker quit 2 [...] on: 12/05/2016 10:25 EDT] Bunny Briggs MD [facility] MAGR Intraoperative Recordon 12-05-2016 MAGR Intraoperative Record MAGR Intra-Op Record Summary Primary Physician: ARIES HARO Finalized Date/Time: 12/05/16 11:52:54 Pt. Name: TAMY WALLS Cliff JaimeB./Sex: 1980 FEMALE Med Rec #: [id number] Physician: ARIES HARO Financial #: [id number] Pt. Type: D Room/Bed: / Admit/Disch: 12/05/16 [...] Role Performed Surgeon - Primary Anesthesiologist of Surgeon'S Assistant Record Time In 12/05/16 10:37:00 12/05/16 10:37:00 12/05/16 10:37:00 Time Out 12/05/16 11:30:00 12/05/16 11:48:00 12/05/16 11:48:00 Procedure Arthroscopy Knee(Left) Arthroscopy Knee(Left) Arthroscopy Knee(Left) Last Modified By: Leslie Tolentino RN, Stephanie RN Sauer, Stephanie RN 12/05/16 11:52:02 12/05/16 11:52:02 12/05/16 11:52:02 Entry 4 Entry 5 Entry 6 Case Attendee Ro Morrison RN, Leigh-Ann CST Nikolaus, Linda M Role Performed Surgeon'S Assistant Equity Holder Scrub Personnel Time In 12/05/16 10:37:00 12/05/16 [...] Signed By: Leslie Tolentino RN 12/05/16 11:52 [facility] MAGR Postoperative Recordon 12-05-2016 MAGR Postoperative Record MAGR Phase II Record Summary Primary Physician: ARIES HARO Finalized Date/Time: 12/05/16 14:50:11 Pt. Name: TAMY WALLS /Sex: 1980 FEMALE Med Rec #: [id number] Physician: ARIES HARO Financial #: [id number] Pt. Type: D Room/Bed: / Admit/Disch: 12/05/16 [...] 1320.....care assumed from Og Jarvis RN...report received 6732 - discharge instructions reviewed with patient, daughter, and grandmother. All verbalize understanding. Copy of instructions sent home with patient along with prescription for percocet......discharged per wheelchair to private auto driven by daughter for home Finalized By: Sana Jarvis RN Document Signatures Signed By: Sana Jarvis RN 12/05/16 14:50 [facility] Progress Note - Nurseon 10-2 Progress Note - Nurse Spoke with pt and informed her to be here at 9am and NPO after MN, she verbalizes understanding.[Electronical ly Signed on: 12/04/2016 09:42 EDT] Shayy Sylvester RN[Verified on: 12/04/2016 09:42 EDT] Shayy Sylvester RN [facility] Vital Signs Date Time Vital Sign Value Performing Clinician Faci lity 10-27-2022 20:03-0400 Diastolic blood pressure 76 mm[Hg] Anna Callahan MD Work Phone: [employer] 10-27-2022 20:03-0400 SaO2% (BldA) [Mass fraction] 98 % Anna Callahan MD Work Phone: [employer] 10-27-2022 20:03-0400 Systolic blood pressure 126 mm[Hg] Anna Callahan MD Work Phone: [employer] 10-27-2022 15:17-0400 Body weight 104.33 kg Anna Callahan MD Work Phone: [employer] 10-27-2022 15:15-0400 Body temperature 97.9 [degF] Anna Callahan MD Work Phone: [employer] 10-27-2022 15:15-0400 Heart rate 100 /min Anna Callahan MD Work Phone: [employer] 10-27-2022 15:15-0400 Respiratory rate 18 /min Anna Callahan MD Work Phone: [employer] Encounters Encounter Date Encounter Type Care Provider Facility Start: 10-27-2022 End: 10-27-2022 Emergency department patient visit Anna Callahan MD Work Phone: [facility] ED Comment on above: Left flank pain (Berenice oreilly Dx) Start: 04-21-2022 End: 04-22-[address] FRANCIA RODRIGUEZ . Facility:[facility] Start: 03-24-2022 End: 03-25-[address] FRANCIA RODRIGUEZ . Facility:[facility] Start: 03-19-2022 End: 03-19-[address] FRANCIA RODRIGUEZ . Facility: Start: 12-05-2016 End: 12-05-2016 Patient encounter [facility] Facility:[facility] Start: 11-29-2016 End: 11-29-2016 Patient encounter [facility] Facility:[facility] Procedures Date Procedure Procedure Detail Performing Clinician Start: 10-27-2022 Ct abdomen & pelvis w/contrast material Tyler Galarza PA-C Work Phone: Start: 10-27-2022 Urnls dip stick/tabl et reagent auto microscopy Anna Callahan MD Work Phone: Start: 10-27-2022 Comprehensive metabo lic panel Anna Callahan MD Work Phone: Plan of Treatment Date Care Activity Detail Author Start: 09-09-2022 Influenza vaccination Flu vaccine (# 1) [facility] Start: 2021 Lipid panel Lipids [facility] Start: 05-01-2011 Screening for malign ant neoplasm of cervix [facility] Start: 2002 Screening for malign ant neoplasm of cervix Pap smear [facility] Start: 2000 DTaP/Tdap/Td vaccine (1 - Tdap) DTaP/Tdap/Td vaccine (1 - Tdap) [facility] Start: 05-01-1999 Hepatitis C screening Hepatitis C sc reen [facility] Start: 1996 HIV screening HIV screen [facility] Start: 1993 Depression Screen Depression Screen [facility] Start: 1982 Varicella vaccine (1 of 2 - 2-dose childhood series) Varicella vaccine (1 of 2 - 2-dose childhood series) [facility] Start: 1981 COVID-19 Vaccine (#1) COVID-19 Vacci ne (#1) [facility] Start: 1981 Hepatitis B vaccine (1 of 3 - 3-dose series) Hepatitis B vaccine (1 of 3 - 3-dose series) [facility] End: 10-27-2022 Culture, Urine [facility] Work Phone: Comment on above: One Time for 1 Occur rences starting 10/27/2022 until 10/27/2022 Payers Date Payer Category Payer Unknown [id number] 1980 Unknown [id number] [id number] 1980 Unknown [id number] [id number] 1980 Unknown [id number] [id number] [id number] 1980 Unknown [id number] [id number] 1959 Unknown [id number] Social History Date Type Detail Facility Tobacco smoking stat [facility] Tobacco smoking consumption unknown [facility] Start: 1980 Sex Assigned At Not on file [facility] Gender identity Not on file [facility] Hospital Discharge instructions 10-27-2022 Discharge InstructionsAttachments Note [...] cannot be sent through Care Everywhere.Flank Pain (Malay)documented in this encounter [facility] Evaluation note Note Date & Type Note Facility Evaluation note Diagnosis Left flank pain- Primary Abdominal pain, unspecified site documented in this encounter [facility] Summary Purpose Family History No Family History Records FoundNo Family History Records FoundNo Family History Records Found Advance Directives No Advanced Directives Records FoundNo Advanced Directives Records FoundNo Advanced Directives Records Found Additional Source Comments INFORMATION SOURCE (unrecogn ized section and content) DATE CREATED AUTHOR 08/22/2017 [facility] DATE CREATED AUTHOR AUTHOR'S ORGANIZ ATION 04/28/2022 [facility] DATE CREATED AUTHOR AUTHOR'S ORGANIZ ATION 08/06/2023 [facility] Reason for Visit (unrecogniz ed [...] BE BASED ON THE PRIMARY CLINICAL RECORDS. [facility]. provides no warranty or guarantee of the accuracy or completeness of information in this document.
--- NOTE | 2023-11-09 15:43 | XR_ITS ---
The [address] [address] Patient Name: TAMY CHAPIN MRN: [id number] date: 1980 Sex: F Assigned Patient Location: LAB Current Patient Location: LAB Accession/Order Number: [id number] Exam Date: 11/09/2023 15:45 Report Date: 11/10/2023 04:41 At the request of: FRANCIA RODRIGUEZ Procedure: XR acute abdomen series EXAMINATION: XR acute abdomen series HISTORY: Edema R60.9 COMPARISON: XR chest 09/04/2023 FINDINGS: LUNGS: No infiltrate, pneumothorax, or pleural effusion. MEDIASTINUM: No abnormal widening. BOWEL GAS PATTERN: Non-obstructed. FREE AIR: None. CALCIFICATIONS: None significant. BONES: No fracture or visible bone lesion. OTHER: Negative. XR/XR acute abdomen series IMPRESSION: 1. No convincing acute cardiopulmonary process. 2. No acute or suspicious abdominal or pelvic findings. Electronically authenticated by: ABEL COLES Date: 11/10/2023 04:41
[2023-11-09 15:46] LABS: Basophils Absolute Auto 0.1 10^3/uL (0.0-0.1); Basophils Percent Auto 0.3 % (0.2-2.0); Eosinophils Absolute Auto 0.1 10^3/uL (0.0-0.7); Eosinophils Percent Auto 0.6 % (0.9-7.0); Hematocrit 40.3 % (36.0-48.0); Hemoglobin 13.4 g/dL (12.0-16.0); Immature Granulocytes Abs Auto 0.05 10^3/uL (0.00-0.03); Immature Granulocytes Pct Auto 0.3 % (0.0-0.5); Lymphocytes Absolute Auto 3.1 10^3/uL (1.2-3.8); Lymphocytes Percent Auto 18.9 % (20.5-60.0); Mean Corpuscular HGB Conc 33.3 g/dL (29.9-35.2); Mean Corpuscular Volume 96.2 fL (81.0-99.0); Mean Platelet Volume 8.9 fL (9.5-13.5); Monocytes Absolute Auto 1.1 10^3/uL (0.3-0.8); Monocytes Percent Auto 6.7 % (1.7-12.0); Neutrophils Percent Auto 73.2 % (43.0-75.0); Platelet Count 266 10^3/uL (150-450); Red Blood Count 4.19 10^6/uL (4.20-5.40); Red Cell Distribution Width 13.8 % (11.0-15.0); White Blood Count 16.4 10^3/uL (4.0-11.0)
[2023-11-09 16:36] LABS: Free T4 1.06 ng/dL (0.76-1.46)
[2023-11-09 16:42] LABS: Alanine Aminotransferase 34 U/L (14-59); Albumin Globulin Ratio 0.8; Albumin Level 2.9 g/dL (3.4-5.0); Alkaline Phosphatase 61 U/L (46-116); Amylase 60 U/L (25-115); Anion Gap 8.1; Aspartate Amino Transferase 12 U/L (15-37); BUN Creatinine Ratio 9.9; Bilirubin Total 0.2 mg/dL (0.2-1.0); Calcium 8.7 mg/dL (8.5-10.1); Carbon Dioxide 29.1 mmol/L (21.0-32.0); Chloride 103 mmol/L (98-107); Estimated GFR (African America >60 (>=60); Estimated GFR (Non-African Ame >60 (>=60); Globulin 3.5 g/dL; Glucose 90 mg/dL (74-106); Potassium 4.2 mmol/L (3.5-5.1); Sodium 136 mmol/L (136-145); Thyroid Stimulating Hormone 1.856 uIU/mL (0.358-3.740); Total Protein 6.4 g/dL (6.4-8.2)
--- NOTE | 2023-11-09 17:54 | US_ITS ---
The [place] [id number] Patient Name: TAMY CHAPIN MRN: [id number] date: 1980 Sex: F Assigned Patient Location: LAB Current Patient Location: Accession/Order Number: [id number] Exam Date: 11/09/2023 17:59 Report Date: 11/10/2023 04:38 At the request of: FRANCIA RODRIGUEZ Procedure: US venous doppler LE BI EXAMINATION: US venous doppler LE BI HISTORY: R60.9 COMPARISON: Ultrasound venous Doppler lower extremity right 02/13/2023 FINDINGS: REGION: Bilateral lower extremity THROMBI: None. COMPRESSIBILITY: Normal compressibility. FLOW: Normal waveform and antegrade flow between 5 and 20 cm/s. OTHER: Subcutaneous edema within distal lower extremity bilaterally. US/US venous doppler LE BI IMPRESSION: 1. No deep vein thrombus within the right or left lower extremity. Electronically authenticated by: ABEL COLES Date: 11/10/2023 04:38
== END 2023-11-09 15:30 | disposition home or self-care (01) ==
PROVIDERS: PCP Family Medicine; Visit Provider Family Medicine
DX: R60.9 Edema, unspecified (principal); R60.0 Localized edema
CPT/HCPCS: 36415; 74022; 80053; 82150; 83690; 84439; 84443; 85025; 93970

== ENCOUNTER 2023-11-10 11:44 | Outpatient (OUT) | payer OTHER, SELFPAY ==
[2023-11-10 12:00] LABS: Basophils Percent Auto 0.3 % (0.2-2.0); Eosinophils Absolute Auto 0.1 10^3/uL (0.0-0.7); Hematocrit 40.7 % (36.0-48.0); Hemoglobin 13.5 g/dL (12.0-16.0); Immature Granulocytes Abs Auto 0.05 10^3/uL (0.00-0.03); Immature Granulocytes Pct Auto 0.5 % (0.0-0.5); Lymphocytes Absolute Auto 2.4 10^3/uL (1.2-3.8); Mean Corpuscular HGB Conc 33.2 g/dL (29.9-35.2); Mean Corpuscular Hemoglobin 31.9 pg (26.7-34.0); Mean Corpuscular Volume 96.2 fL (81.0-99.0); Mean Platelet Volume 8.9 fL (9.5-13.5); Monocytes Absolute Auto 0.7 10^3/uL (0.3-0.8); Monocytes Percent Auto 6.5 % (1.7-12.0); Neutrophils Absolute Auto 7.6 10^3/uL (1.4-6.5); Neutrophils Percent Auto 69.7 % (43.0-75.0); Platelet Count 248 10^3/uL (150-450); Red Blood Count 4.23 10^6/uL (4.20-5.40); Red Cell Distribution Width 13.8 % (11.0-15.0); White Blood Count 10.9 10^3/uL (4.0-11.0)
--- OUTSIDE RECORDS SUMMARY | 2023-11-10 12:03 | XMS_ITS | CCD ---
Author Organization [facility] Care Team Providers Care Principal Secretary Name Role Phone STEPANIC, ARIES C Unavailable [...] Unavailable HOY ., DR FELDMAN Consulting Unavailable LAWAI, DR MAURICIO Fraser Consulting Unavailable Unavailable Primary Care Provider ANNA Crain Attending Unavailable Allergies Allergy Classification Reported Allergen(s) Allergy Type Date of Onset Reaction(s) Facility (1 source) acetaminophen / oxyCODONE; Translations: [Percocet 5/325] Drug Allergy [facility] Repository (2 sources) HYDROmorphone; Translations: [Dilaudid] Drug Allergy [facility] Repository (1 source) egg extract Drug Allergy 02-09-[address] [facility] Repository (1 source) HYDROmorphone Drug Allergy 10-27-2022 [facility] Medications Current Medications Medication Drug Class(es) Dates [...] Diffon 08-05-2023 Abs. Basophil <0.03 Normal 0.00-0.20 [facility] Comment on above: Performed By: #### T , CDP #### [facility] [address] [place], [place] [id number] Assistant Professor Of Physics: Mauricio Irby MD #### LIPR, FT3, INSU, T4, FE, GLYHGB #### [address] [phone] Assistant Professor Of Physics: Casa Medrano MD Abs.Imm.Granulocy te 0.05 k/uL Normal 0.00-0.30 [facility] Comment on above: Performed By: #### T SH, CDP #### [address] [place] [phone] Assistant Professor Of Physics: Mauricio Irby MD #### LIPR, FT3, INSU, T4, FE, GLYHGB #### [place] [address] Assistant Professor Of Physics: Casa Medrano MD Abs.Neutrophil (Seg) 7.71 k/uL Normal 1.50-8.10 [facility] Comment on above: Performed By: #### T SH, CDP #### [address] [place] [phone] Assistant Professor Of Physics: Mauricio Irby MD #### LIPR, FT3, INSU, T4, FE, GLYHGB #### [place] [phone] Assistant Professor Of Physics: Casa Medrano MD Basophils/100 WBC (Bld) 0 % Normal 0-2 [facility] Comment on above: Performed By: #### T SH, CDP #### [address] [place] [phone] Assistant Professor Of Physics: Mauricio Irby MD #### LIPR, FT3, INSU, T4, FE, GLYHGB #### [address] [phone] Assistant Professor Of Physics: Casa Medrano MD Eosinophils (Bld) [#/Vol] 0.10 10*3/uL Normal 0.00-0.44 [facility] Comment on above: Performed By: #### T SH, CDP #### [address] [place] [address] Assistant Professor Of Physics: Mauricio Irby MD #### LIPR, FT3, INSU, T4, FE, GLYHGB #### [address] [phone] Assistant Professor Of Physics: Casa Medrano MD Eosinophils/100 WBC (Bld) 1 % Normal 1-4 [facility] Comment on above: Performed By: #### T SH, CDP #### [address] [place] [address] Assistant Professor Of Physics: Mauricio Irby MD #### LIPR, FT3, INSU, T4, FE, GLYHGB #### [address] [phone] Assistant Professor Of Physics: Casa Medrano MD Erythrocyte distribution width (RBC) [Ratio] 12.5 % Normal 11.8-14.4 [facility] Comment on above: Performed By: #### T SH, CDP #### [address] [place] [address] Assistant Professor Of Physics: Mauricio Irby MD #### LIPR, FT3, INSU, T4, FE, GLYHGB #### [address] [phone] Assistant Professor Of Physics: Casa Medrano MD Hematocrit (Bld) [Volume fraction] 45.1 % Normal 36.3-47.1 [facility] Comment on above: Performed By: #### T SH, CDP #### [address] [place] [address] Assistant Professor Of Physics: Mauricio Irby MD #### LIPR, FT3, INSU, T4, FE, GLYHGB #### [address] [phone] Assistant Professor Of Physics: Casa Medrano MD Hemoglobin (Bld) [Mass/Vol] 15.2 g/dL High 11.9-15.1 [facility] Comment on above: Performed By: #### T SH, CDP #### [facility] [address] [place] [address] Dr. [place] [phone] Assistant Professor Of Physics: Mauricio Irby MD #### LIPR, FT3, INSU, T4, FE, GLYHGB #### [address] [address] Assistant Professor Of Physics: Casa Medrano MD Immature granulocytes/100 WBC (Bld) 1 % High 0 [facility] Comment on above: Performed By: #### T SH, CDP #### [address] [place] [phone] Assistant Professor Of Physics: Mauricio Irby MD #### LIPR, FT3, INSU, T4, FE, GLYHGB #### [place] [address] Assistant Professor Of Physics: Casa Medrano MD Lymphocytes (Bld) [#/Vol] 2.55 10*3/uL Normal 1.10-3.70 [facility] Comment on above: Performed By: #### T SH, CDP #### [facility] [address] [place] [address] Dr. [place] [phone] Assistant Professor Of Physics: Mauricio Irby MD #### LIPR, FT3, INSU, T4, FE, GLYHGB #### [address] [phone] Assistant Professor Of Physics: Casa Medrano MD Lymphocytes/100 WBC (Bld) 23 % Low 24-43 [facility] Comment on above: Performed By: #### T SH, CDP #### [facility] [address] [place] [address] Dr. [place] [phone] Assistant Professor Of Physics: Mauricio Irby MD #### LIPR, FT3, INSU, T4, FE, GLYHGB #### [place] [phone] [place], [place] [phone] Assistant Professor Of Physics: Casa Medrano MD MCH (RBC) [Entitic mass] 31.6 pg Normal 25.2-33.5 [facility] Comment on above: Performed By: #### T SH, CDP #### [address] [place] [phone] Assistant Professor Of Physics: Mauricio Irby MD #### LIPR, FT3, INSU, T4, FE, GLYHGB #### [address] [phone] Assistant Professor Of Physics: Casa Medrano MD MCHC (RBC) [Mass/Vol] 33.7 g/dL Normal 28.4-34.8 [facility] Comment on above: Performed By: #### T SH, CDP #### [address] [place] [phone] Assistant Professor Of Physics: Mauricio Irby MD #### LIPR, FT3, INSU, T4, FE, GLYHGB #### [place] [address] Assistant Professor Of Physics: Casa Medrano MD MCV (RBC) [Entitic vol] 93.8 fL Normal 82.6-102.9 [facility] Comment on above: Performed By: #### T SH, CDP #### [address] [place] [phone] Assistant Professor Of Physics: Mauricio Irby MD #### LIPR, FT3, INSU, T4, FE, GLYHGB #### [place] [phone] Assistant Professor Of Physics: Casa Medrano MD Monocytes (Bld) [#/Vol] 0.60 10*3/uL Normal 0.10-1.20 [facility] Comment on above: Performed By: #### T SH, CDP #### [facility] [address] [place], [place] [phone] Assistant Professor Of Physics: Mauricio Irby MD #### LIPR, FT3, INSU, T4, FE, GLYHGB #### [address] [phone] Assistant Professor Of Physics: Casa Medrano MD Monocytes/100 WBC (Bld) 5 % Normal 3-12 [facility] Comment on above: Performed By: #### T SH, CDP #### [facility] [address] [place] [address] Assistant Professor Of Physics: Mauricio Irby MD #### LIPR, FT3, INSU, T4, FE, GLYHGB #### [address] [phone] Assistant Professor Of Physics: Casa Medrano MD Neutrophil (Seg) 70 % High 36-65 [facility] Comment on above: Performed By: #### T SH, CDP #### [facility] [address] [place] [address] [place] [address] Assistant Professor Of Physics: Mauricio Irby MD #### LIPR, FT3, INSU, T4, FE, GLYHGB #### [address] [id number] Assistant Professor Of Physics: Casa Medrano MD NRBC Automated 0.0 per 100 WBC Normal 0.0 [facility] Comment on above: Performed By: #### T SH, CDP #### [facility] [address] [place] [address] Assistant Professor Of Physics: Mauricio Irby MD #### LIPR, FT3, INSU, T4, FE, GLYHGB #### [address] [phone] Assistant Professor Of Physics: Casa Medrano MD Platelet mean volume (Bld) [Entitic vol] 9.2 fL Normal 8.1-13.5 [facility] Comment on above: Performed By: #### T SH, CDP #### [address] [place], [place] [phone] Assistant Professor Of Physics: Mauricio Irby MD #### LIPR, FT3, INSU, T4, FE, GLYHGB #### [place] [phone] [place] [address] Assistant Professor Of Physics: Casa Medrano MD Platelets (Bld) [#/Vol] 297 10*3/uL Normal 138-453 [facility] Comment on above: Performed By: #### T SH, CDP #### [address] [place], [place] [phone] Assistant Professor Of Physics: Mauricio Irby MD #### LIPR, FT3, INSU, T4, FE, GLYHGB #### [address] [address] Assistant Professor Of Physics: Casa Medrano MD RBC (Bld) [#/Vol] 4.81 10*6/uL Normal 3.95-5.11 [facility] Comment on above: Performed By: #### T SH, CDP #### [address] [place], [place] [phone] Assistant Professor Of Physics: Mauricio Irby MD #### LIPR, FT3, INSU, T4, FE, GLYHGB #### [address] [id number] Assistant Professor Of Physics: Casa Medrano MD WBC (Bld) [#/Vol] 11.0 10*3/uL Normal 3.5-11.3 [facility] Comment on above: Performed By: #### T SH, CDP #### [address] [place], [place] [phone] Assistant Professor Of Physics: Mauricio Irby MD #### LIPR, FT3, INSU, T4, FE, GLYHGB #### [address] [phone] Assistant Professor Of Physics: Casa Medrano MD Hemoglobin A1Con 08-05-2023 Glucose [Mass/Vol] 100 mg/dL Normal [facility] Comment on above: Result Comment: The ADA and AACC recommend providing the estimated average glucose result to permit better patient understanding of their HBA1c result. Performed By: #### C JANIE RAMIREZ, CP #### [facility] [address] [place] [address] Dr. [place], [place] [phone] Assistant Professor Of Physics: Mauricio Irby MD HbA1c (Bld) [Mass fraction] 5.1 % Normal 4.0-6.0 [facility] Comment on above: Performed By: #### C JANIE RAMIREZ, CP #### [address] [place], [place] [phone] Assistant Professor Of Physics: Mauricio Irby MD Insulinon 08-05-2023 Insulin 19.2 mU/L Normal [facility] Comment on above: Performed By: #### T SH, CDP #### [address] [place], [place] [phone] Assistant Professor Of Physics: Mauricio Irby MD #### LIPR, FT3, INSU, T4, FE, GLYHGB #### [facility] [employer] [facility] [place], [place] [phone] Assistant Professor Of Physics: Casa Medrano MD Reference Range Normal [facility] Comment on above: Result Comment: Fast in.6-24.9 30 min: 20-112 60 min: 29-88 90 min: 26-84 120 min: 22-79 Performed By: #### T SH, CDP #### [facility] [address] [place] [address] [place] [address] Assistant Professor Of Physics: Mauricio Irby MD #### LIPR, FT3, INSU, T4, FE, GLYHGB #### [place] [phone] [place], [place] [phone] Assistant Professor Of Physics: Casa Medrano MD Ironon 08-05-2023 Iron [Mass/Vol] 68 ug/dL Normal 37-145 [facility] Comment on above: Performed By: #### C DP, LIP, CP #### [address] [place] [address] Assistant Professor Of Physics: Mauricio Irby MD Lipid Profileon 08-05-2023 Cholesterol [Mass/Vol] 171 mg/dL Normal 0-199 [facility] Comment on above: Result Comment: Cholesterol Guidelines: <200 Desirable 200-240 Borderline >240 Undesirable Performed By: #### T SH, CDP #### [address] [place] [address] Assistant Professor Of Physics: Mauricio Irby MD #### LIPR, FT3, INSU, T4, FE, GLYHGB #### [address] [phone] Assistant Professor Of Physics: Casa Medrano MD Cholesterol in HDL [Mass/Vol] 52 mg/dL Normal >40 [facility] Comment on above: Result Comment: HDL Guidelines: <40 Undesirable 40-59 Borderline >59 Desirable Performed By: #### T SH, CDP #### [address] [place] [address] Assistant Professor Of Physics: Mauricio Irby MD #### LIPR, FT3, INSU, T4, FE, GLYHGB #### [address] [phone] Assistant Professor Of Physics: Casa Medrano MD Cholesterol in LDL [Mass/Vol] 100 mg/dL Normal 0-100 [facility] Comment on above: Result Comment: LDL Guidelines: <100 Desirable 100-129 Near to/above Desirable 130-159 Borderline >159 Undesirable Direct (measured) LDL and calculated LDL are not interchangeable tests. Performed By: #### T SH, CDP #### [address] [place] [address] Assistant Professor Of Physics: Mauricio Irby MD #### LIPR, FT3, INSU, T4, FE, GLYHGB #### [place] [phone] [place] [address] Assistant Professor Of Physics: Casa Medrano MD Cholesterol in VLDL [Mass/Vol] 19 mg/dL Normal [facility] Comment on above: Performed By: #### T SH, CDP #### [address] [place], [place] [phone] Assistant Professor Of Physics: Mauricio Irby MD #### LIPR, FT3, INSU, T4, FE, GLYHGB #### [address] [address] Assistant Professor Of Physics: Casa Medrano MD Cholesterol.total /Cholesterol in HDL [Mass ratio] 3.0 {ratio} Normal [facility] Comment on above: Performed By: #### T DANIEL, CDP #### [address] [place] [address] Assistant Professor Of Physics: Mauricio Irby MD #### LIPR, FT3, INSU, T4, FE, GLYHGB #### [address] [phone] Assistant Professor Of Physics: Casa Medrano MD Triglyceride [Mass/Vol] 93 mg/dL Normal <150 [facility] Comment on above: Result Comment: Triglyceride Guidelines: <150 Desirable 150-199 Borderline 200-499 High >499 Very high Based on AHA Guidelines for fasting triglyceride, November 2011. Performed By: #### T SH, CDP #### [address] [place], [place] [phone] Assistant Professor Of Physics: Mauricio Irby MD #### LIPR, FT3, INSU, T4, FE, GLYHGB #### [address] [address] Assistant Professor Of Physics: Casa Medrano MD T3, Freeon 08-05-2023 Free T3 [Mass/Vol] 2.90 pg/mL Normal 2.00-4.40 [facility] Comment on above: Performed By: #### C DP LIP, CP #### [address] [place] [address] Assistant Professor Of Physics: Mauricio Irby MD Thyroid Stim. Horm.on 2023 Thyroid Stim. Horm. 1.33 uIU/mL Normal 0.30-5.00 [facility] Comment on above: Performed By: #### T SH, CDP #### [address] [place] [address] Assistant Professor Of Physics: Mauricio Irby MD #### LIPR, FT3, INSU, T4, FE, GLYHGB #### [place] [phone] [place], [place] [phone] Assistant Professor Of Physics: Casa Medrano MD Thyroxine T4on 08-05-2023 T4 [Mass/Vol] 9.9 ug/dL Normal 4.5-11.7 [facility] Comment on above: Performed By: #### T SH, CDP #### [address] [place] [address] Assistant Professor Of Physics: Mauricio Irby MD #### LIPR, FT3, INSU, T4, FE, GLYHGB #### [place] [phone] [place], [place] [phone] Assistant Professor Of Physics: Casa Medrano MD Cult,Urineon 10-28-2022 Cult,Urine Specimen Description .CLEAN CATCH URINE Culture NO SIGNIFICANT GROWTH Report Status FINAL 10/28/2022 Normal [facility] Comment on above: Performed By: #### C JANIE RAMIREZ, CP #### [address] [place] [address] Assistant Professor Of Physics: Mauricio Irby MD CBC with Auto Differentialon 10-27-2022 Basophils (Bld) [#/Vol] 0.03 10*3/uL [facility] Basophils/100 WBC (Bld) 0 % 0 - 2 % [facility] Eosinophils (Bld) [#/Vol] 0.07 10*3/uL [facility] Eosinophils/100 WBC (Bld) 1 % 1 - 4 % [facility] Erythrocyte distribution width (RBC) [Ratio] 12.6 % 11.8 - 14.4 % [facility] Hematocrit (Bld) [Volume fraction] 43.7 % 36.3 - 47.1 % [facility] Hemoglobin (Bld) [Mass/Vol] 14.3 g/dL 11.9 - 15.1 g/dL [facility] Immature granulocytes (Bld) [#/Vol] 0.04 10*3/uL [facility] Immature granulocytes/100 WBC (Bld) 0 % 0 [facility] Interpretation and review of laboratory results Abnormal [facility] Lymphocytes/100 WBC (Bld) 27 % 24 - 43 % [facility] Lymphocytes/100 WBC (Bld) 2.50 % [facility] MCH (RBC) [Entitic mass] 31.2 pg 25.2 - 33.5 pg [facility] MCHC (RBC) [Mass/Vol] 32.7 g/dL 28.4 - 34.8 g/dL [facility] MCV (RBC) [Entitic vol] 95.4 fL 82.6 - 102.9 fL [facility] Monocytes/100 WBC (Bld) 5 % 3 - 12 % [facility] Monocytes/100 WBC (Bld) 0.44 % [facility] Neutrophils/100 WBC (Bld) 67 % High 36 - 65 % [facility] Nucleated RBC/100 WBC (Bld) [Ratio] 0.0 % 0.0 per 100 WBC [facility] Platelet mean volume (Bld) [Entitic vol] 8.9 fL 8.1 - 13.5 fL [facility] Platelets (Bld) [#/Vol] 264 10*3/uL [facility] RBC (Bld) [#/Vol] 4.58 10*6/uL 3.95 - 5.1 1 m/uL [facility] Segmented neutrophils/100 WBC (Bld) 6.32 % [facility] WBC other (Bld) [#/Vol] 9.4 [facility] CBC with Diffon 10-27-2022 Abs. Basophil 0.03 k/uL Normal 0.00-0.20 [facility] Comment on above: Performed By: #### C DP, LIP, CP #### [facility] [address] [place] [address] [place] [address] Assistant Professor Of Physics: Mauricio Irby MD Abs.Imm.Granulocy te 0.04 k/uL Normal 0.00-0.30 [facility] Comment on above: Performed By: #### C DP, LIP, CP #### [address] [place] [address] Assistant Professor Of Physics: Mauricio Irby MD Abs.Neutrophil (Seg) 6.32 k/uL Normal 1.50-8.10 [facility] Comment on above: Performed By: #### C DP, LIP, CP #### [address] [place], [place] [address] Assistant Professor Of Physics: Mauricio Irby MD Basophils/100 WBC (Bld) 0 % Normal 0-2 [facility] Comment on above: Performed By: #### C DP, LIP, CP #### [address] [place] [address] Assistant Professor Of Physics: Mauricio Irby MD Eosinophils (Bld) [#/Vol] 0.07 10*3/uL Normal 0.00-0.44 [facility] Comment on above: Performed By: #### C DP, LIP, CP #### [address] [place], [facility] Assistant Professor Of Physics: Mauricio Irby MD Eosinophils/100 WBC (Bld) 1 % Normal 1-4 [facility] Comment on above: Performed By: #### C DP, LIP, CP #### [address] [place] [phone] Assistant Professor Of Physics: Mauricio Irby MD Erythrocyte distribution width (RBC) [Ratio] 12.6 % Normal 11.8-14.4 [facility] Comment on above: Performed By: #### C DP LIP, CP #### [facility] [address] [place], [place] [phone] Assistant Professor Of Physics: Mauricio Irby MD Hematocrit (Bld) [Volume fraction] 43.7 % Normal 36.3-47.1 [facility] Comment on above: Performed By: #### C DP, LIP, CP #### [facility] [address] [place] [address] Assistant Professor Of Physics: Mauricio Irby MD Hemoglobin (Bld) [Mass/Vol] 14.3 g/dL Normal 11.9-15.1 [facility] Comment on above: Performed By: #### C JAMES LIP, CP #### [address] [place], [place] [address] Assistant Professor Of Physics: Mauricio Irby MD Immature granulocytes/100 WBC (Bld) 0 % Normal 0 [facility] Comment on above: Performed By: #### C JAMES LIP, CP #### [address] [place] [address] Assistant Professor Of Physics: Mauricio Irby MD Lymphocytes (Bld) [#/Vol] 2.50 10*3/uL Normal 1.10-3.70 [facility] Comment on above: Performed By: #### C DP LIP, CP #### [facility] [address] [place] [address] Assistant Professor Of Physics: Mauricio Irby MD Lymphocytes/100 WBC (Bld) 27 % Normal 24-43 [facility] Comment on above: Performed By: #### C DP, LIP, CP #### [facility] [address] [place], [place] [phone] Assistant Professor Of Physics: Mauricio Irby MD MCH (RBC) [Entitic mass] 31.2 pg Normal 25.2-33.5 [facility] Comment on above: Performed By: #### C JANIE RAMIREZ, CP #### [address] [place], [place] [phone] Assistant Professor Of Physics: Mauricio Irby MD MCHC (RBC) [Mass/Vol] 32.7 g/dL Normal 28.4-34.8 [facility] Comment on above: Performed By: #### C JANIE RAMIREZ, CP #### [address] [place] [address] Assistant Professor Of Physics: Mauricio Irby MD MCV (RBC) [Entitic vol] 95.4 fL Normal 82.6-102.9 [facility] Comment on above: Performed By: #### C JANIE RAMIREZ, CP #### [address] [place], [facility] Assistant Professor Of Physics: Mauricio Irby MD Monocytes (Bld) [#/Vol] 0.44 10*3/uL Normal 0.10-1.20 [facility] Comment on above: Performed By: #### C JANIE RAMIREZ, CP #### [address] [place], [place] [phone] Assistant Professor Of Physics: Mauricio Irby MD Monocytes/100 WBC (Bld) 5 % Normal 3-12 [facility] Comment on above: Performed By: #### C JANIE RAMIREZ, CP #### [address] [place], [place] [phone] Assistant Professor Of Physics: Mauricio Irby MD Neutrophil (Seg) 67 % High 36-65 [facility] Comment on above: Performed By: #### C JANIE RAMIREZ, CP #### [address] [place] [address] Assistant Professor Of Physics: Mauricio Irby MD NRBC Automated 0.0 per 100 WBC Normal 0.0 [facility] Comment on above: Performed By: #### C JAMES LIP, CP #### [address] [place], [facility] Assistant Professor Of Physics: Mauricio Irby MD Platelet mean volume (Bld) [Entitic vol] 8.9 fL Normal 8.1-13.5 [facility] Comment on above: Performed By: #### C JAMES LIP, CP #### [address] [place], [facility] Assistant Professor Of Physics: Mauricio Irby MD Platelets (Bld) [#/Vol] 264 10*3/uL Normal 138-453 [facility] Comment on above: Performed By: #### C JANIE RAMIREZ, CP #### [address] [place], [place] [phone] Assistant Professor Of Physics: Mauircio Irby MD RBC (Bld) [#/Vol] 4.58 10*6/uL Normal 3.95-5.11 [facility] Comment on above: Performed By: #### C JANIE RAMIREZ, CP #### [address] [place], [facility] Assistant Professor Of Physics: Mauricio Irby MD WBC (Bld) [#/Vol] 9.4 10*3/uL Normal 3.5-11.3 [facility] Comment on above: Performed By: #### C JAMES LIP, CP #### [address] [place], [facility] Assistant Professor Of Physics: Mauricio Irby MD CT ABDOMEN PELVIS W [...] Ronni Vaughn MD 10/27/22 Final result Normal [facility] CT ABDOMEN PELVIS W IV CONTR AST Additional Contrast? Noneon 10-27-2022 No acute abnormality identified. [facility] EXAMINATION: CT OF THE [...] findings do not require dedicated imaging follow-up. [facility] Ronni Vaughn MD - [...] imaging follow-up. IMPRESSION: No acute abnormality identified. [facility] Radiology Study observation (narrative) [facility] CT ABDOMEN PELVIS W IV CONTR AST Additional Contrast? NoneOrdered By: Ronni Vaughn on 10-27-2022 [facility] Work Phone: Comp Metabolic Profon 2022 Albumin [Mass/Vol] 4.0 g/dL Normal 3.5-5.2 [facility] Comment on above: Performed By: #### C DP, LIP, CP #### [address] [place] [address] Assistant Professor Of Physics: Mauricio Irby MD Albumin/Glob Ratio 1.1 Normal 1.0-2.5 [facility] [facility] Comment on above: Performed By: #### C DP LIP, CP #### [address] [place] [address] Assistant Professor Of Physics: Mauricio Irby MD Alkaline Phos 82 U/L Normal 35-104 [facility] Comment on above: Performed By: #### C DP, LIP, CP #### [address] [place] [id number] Assistant Professor Of Physics: Mauricio Irby MD ALT [Catalytic activity/Vol] 11 U/L Normal 5-33 [facility] Comment on above: Performed By: #### C DP, LIP, CP #### [facility] [address] [place], [place] [id number] Assistant Professor Of Physics: Mauricio Irby MD Anion gap [Moles/Vol] 8 mmol/L Low 9-17 [facility] Comment on above: Performed By: #### C DP, LIP, CP #### [facility] [address] [place], [place] [id number] Assistant Professor Of Physics: Mauricio Irby MD AST [Catalytic activity/Vol] 12 U/L Normal <32 [facility] Comment on above: Performed By: #### C DP LIP, CP #### [facility] [address] [place], [place] [phone] Assistant Professor Of Physics: Mauricio Irby MD Bilirubin [Mass/Vol] 0.2 mg/dL Low 0.3-1.2 [facility] Comment on above: Performed By: #### C JAMES LIP, CP #### [facility] [address] [place] [address] Dr. [place], [place] [phone] Assistant Professor Of Physics: Mauricio Irby MD BUN/CRE Ratio 11 Normal 9-20 [facility] Comment on above: Performed By: #### C DP LIP, CP #### [facility] [address] [place], [place] [phone] Assistant Professor Of Physics: Mauricio Irby MD Calcium [Mass/Vol] 9.2 mg/dL Normal 8.6-10.4 [facility] Comment on above: Performed By: #### C DP, LIP, CP #### [facility] [address] [place], [place] [id number] Assistant Professor Of Physics: Mauricio Irby MD Chloride [Moles/Vol] 102 mmol/L Normal 98-107 [facility] Comment on above: Performed By: #### C JANIE RAMIREZ, CP #### [facility] [address] [place] [address] Assistant Professor Of Physics: Mauricio Irby MD CO2 [Moles/Vol] 27 mmol/L Normal 20-31 [facility] Comment on above: Performed By: #### C JANIE RAMIREZ, CP #### [facility] [address] [place] [address] Assistant Professor Of Physics: Mauricio Irby MD Creatinine [Mass/Vol] 0.7 mg/dL Normal 0.5-0.9 [facility] Comment on above: Performed By: #### C JANIE RAMIREZ, CP #### [facility] [address] [place] [address] Assistant Professor Of Physics: Mauricio Irby MD GFR/1.73 sq M.predicted among non-blacks MDRD (S/P/Bld) [Vol rate/Area] mL/min/{1.73_m2} Normal >60 [facility] Comment on above: Result Comment: These [...] By: #### C JANIE RAMIREZ, CP #### [facility] [address] [place] [address] Assistant Professor Of Physics: Mauricio Irby MD Glucose [Mass/Vol] 134 mg/dL High 70-99 [facility] Comment on above: Performed By: #### C JANIE RAMIREZ, CP #### [facility] [address] [place] [address] Assistant Professor Of Physics: Mauricio Irby MD Potassium [Moles/Vol] 4.1 mmol/L Normal 3.7-5.3 [facility] Comment on above: Performed By: #### C DP LIP, CP #### [facility] [address] [place], [place] [phone] Assistant Professor Of Physics: Mauricio Irby MD Protein [Mass/Vol] 7.7 g/dL Normal 6.4-8.3 [facility] Comment on above: Performed By: #### C JAMES LIP, CP #### [facility] [address] [place], [place] [phone] Assistant Professor Of Physics: Mauricio Irby MD Sodium [Moles/Vol] 137 mmol/L Normal 135-144 [facility] Comment on above: Performed By: #### C JANIE RAMIREZ, CP #### [facility] [address] [place], [place] [phone] Assistant Professor Of Physics: Mauricio Irby MD Urea nitrogen [Mass/Vol] 8 mg/dL Normal 6-20 [facility] Comment on above: Performed By: #### C JAMES LIP, CP #### [facility] [address] [place] [address] Assistant Professor Of Physics: Mauricio Irby MD Comprehensive Metabolic [facility] 10-27-2022 Albumin [Mass/Vol] 4.0 g/dL 3.5 - 5.2 g/dL [facility] Albumin/Globulin [Mass ratio] 1.1 {ratio} 1.0 - 2.5 [facility] ALP [Catalytic activity/Vol] 82 U/L 35 - 104 U/L [facility] ALT [Catalytic activity/Vol] 11 U/L 5 - 33 U/L [facility] Anion gap [Moles/Vol] 8 mmol/L Low 9 - 17 mmol/L [facility] AST [Catalytic activity/Vol] 12 U/L NINF - 32 U/L [facility] Bilirubin [Mass/Vol] 0.2 mg/dL Low 0.3 - 1.2 mg/dL [facility] Calcium [Mass/Vol] 9.2 mg/dL 8.6 - 10.4 mg/dL [facility] Chloride [Moles/Vol] 102 mmol/L 98 - 107 mmol/L [facility] CO2 [Moles/Vol] 27 mmol/L 20 - 31 mmol/L [facility] Creatinine [Mass/Vol] 0.7 mg/dL 0.5 - 0.9 mg/dL [facility] GFR/1.73 sq M.predicted MDRD (S/P/Bld) [Vol rate/Area] - PINF [facility] Comment on above: These results are not [...] 134 mg/dL High 70 - 99 mg/dL [facility] Potassium [Moles/Vol] 4.1 mmol/L 3.7 - 5.3 mmol/L [facility] Protein [Mass/Vol] 7.7 g/dL 6.4 - 8.3 g/dL [facility] Sodium [Moles/Vol] 137 mmol/L 135 - 144 mmol/L [facility] Urea nitrogen [Mass/Vol] 8 mg/dL 6 - 20 mg/dL [facility] Urea nitrogen/Creatini ne [Mass ratio] 11 mg/mg 9 - 20 [facility] Lactic Acidon 10-27-2022 Lactate (BldV) [Moles/Vol] 1.6 mmol/L 0.5 - 2.2 mmol/L [facility] Lactate [Moles/Vol] 1.6 mmol/L Normal 0.5-2.2 [facility] Comment on above: Performed By: #### C JANIE RAMIREZ CP #### [facility] [address] [place] [address] Assistant Professor Of Physics: Mauricio Irby MD Lipaseon 09-18-2023 Lipase [Catalytic activity/Vol] 67 U/L High 13 - 60 U/L [facility] Lipase [Catalytic activity/Vol] 67 U/L High 13-60 [facility] Comment on above: Performed By: #### C DP, LIP, CP #### [facility] [address] [place] [address] Assistant Professor Of Physics: Mauricio Irby MD No Panel Informationon 10-27 Interpretation and review of laboratory results Abnormal [facility] Urinalysis w/ Microon 2022 Bacteria 1+ Abnormal NONE [facility] Comment on above: Performed By: #### U AMIC #### [facility] [address] [place], [place] [phone] Assistant Professor Of Physics: Mauricio Irby MD Bilirubin, SemiQt,Ur Negative Normal NEG [facility] Comment on above: Performed By: #### U AMIC #### [facility] [address] [place], [place] [phone] Assistant Professor Of Physics: Mauricio Irby MD Blood, Urine Negative Normal NEG [facility] Comment on above: Performed By: #### U AMIC #### [facility] [address] [place], [place] [phone] Assistant Professor Of Physics: Mauricio Irby MD Clarity (U) Clear Normal CLEAR [facility] Comment on above: Performed By: #### U AMIC #### [facility] [address] [place], [place] [phone] Assistant Professor Of Physics: Mauricio Irby MD Color (U) Yellow Normal YEL [facility] Comment on above: Performed By: #### U AMIC #### [facility] [address] [place], [place] [phone] Assistant Professor Of Physics: Mauricio Irby MD Epithelial cells LM Ql (Urine sed) 10 TO 20 Normal 0-25 [facility] Comment on above: Performed By: #### U AMIC #### [facility] [address] [place], [place] [phone] Assistant Professor Of Physics: Mauricio Irby MD Glucose Ql (U) Negative Normal NEG [facility] Comment on above: Performed By: #### U AMIC #### [facility] [address] [place] [address] Dr. [place], [place] [phone] Assistant Professor Of Physics: Mauricio Irby MD Ketones Ql (U) Negative Normal NEG [facility] Comment on above: Performed By: #### U AMIC #### [facility] [address] [place] [address] Dr. [place], [place] [phone] Assistant Professor Of Physics: Mauricio Irby MD Leukocyte esterase Test strip Ql (U) Negative Normal NEG [facility] Comment on above: Performed By: #### U AMIC #### [facility] [address] [place] [address] Dr[place], [place] [phone] Assistant Professor Of Physics: Mauricio Irby MD Nitrite,Ur Negative Normal NEG [facility] Comment on above: Performed By: #### U AMIC #### [facility] [address] [place] [address] [place] [address] Assistant Professor Of Physics: Mauricio Irby MD PH,Ur 6.0 Normal 5.0-9.0 [facility] Comment on above: Performed By: #### U AMIC #### [facility] [address] [place] [address] [place] [address] Assistant Professor Of Physics: Mauricio Irby MD Protein Ql (U) Negative Normal NEG [facility] Comment on above: Performed By: #### U AMIC #### [facility] [address] [place] [address] Dr. [place], [place] [phone] Assistant Professor Of Physics: Mauricio Irby MD Spec. Stanley,Ur 1.010 Normal 1.010-1.020 [facility] Comment on above: Performed By: #### U AMIC #### [facility] [address] [place] [address] Dr. [place], [place] [phone] Assistant Professor Of Physics: Mauricio Irby MD Urine RBC's 0 TO 2 Normal 0-2 [facility] Comment on above: Performed By: #### U AMIC #### [facility] [address] [place], [place] 1136083 Assistant Professor Of Physics: Mauricio Irby MD Urine WBC's 0 TO 2 Normal 0-5 [facility] Comment on above: Performed By: #### U AMIC #### [facility] [address] [place], [place] [phone] Assistant Professor Of Physics: Mauricio Irby MD Urobilinogen,Ur Normal Normal 0.0-1.0 [facility] Comment on above: Performed By: #### U AMIC #### [facility] [address] [place] [address] [place], [place] [phone] Assistant Professor Of Physics: Mauricio Irby MD Urinalysis with Microscopico n 10-27-2022 Bacteria LM Ql (Urine sed) 1+ Abnormal None [facility] Bilirubin Ql (U) Negative NEGATIVE [facility] Clarity (U) Clear Clear [facility] Color (U) Yellow Yellow [facility] Epithelial cells LM.HPF (Urine sed) [#/Area] 10 TO 20 [facility] Glucose Test strip (U) [Mass/Vol] Negative NEGATIVE mg/dL [facility] Hemoglobin Auto test strip Ql (U) Negative NEGATIVE [facility] Interpretation and review of laboratory results Abnormal [facility] Ketones (U) [Mass/Vol] Negative NEGATIVE mg/dL [facility] Leukocyte esterase Test strip Ql (U) Negative NEGATIVE [facility] Nitrite Ql (U) Negative NEGATIVE [facility] pH (U) 6.0 [pH] 5.0 - 9.0 [facility] Protein (U) [Mass/Vol] Negative NEGATIVE mg/dL [facility] RBC LM.HPF (Urine sed) [#/Area] [address] [facility] Specific gravity (U) [Rel density] 1.010 1.010 - 1.020 [facility] Urobilinogen Qn (U) Normal 0.0 - 1.0 EU/dL [facility] WBC LM.HPF (Urine sed) [#/Area] 0 TO 2 [facility] XR ABD FLAT UP_PA Joyce 03-25 [...] Date: 2022-03-25 08:01 Normal [facility] AMYLASEon 03-24-2022 Amylase [Catalytic activity/Vol] 36 U/L Normal 25-[address] [facility] Comment on above: Performed By: #### C MP, DARION, LIPA #### [facility] [address] [place] [address] Dr. Melecio Chadwick CBC AUTO DIFFon 03-24-2022 BASO # 0.0 103/ul Normal 0.0-0.[address] [facility] Comment on above: Performed By: #### C BC #### [facility] [address] [place] [address] Dr. Melecio Chadwick Basophils/100 WBC (Bld) 0.2 % Normal 0.2-2.[address] [facility] Comment on above: Performed By: #### C BC #### [facility] [address] [place] [address] Dr. Melecio Chadwick EO # 0.1 103/ul Normal 0.0-0.[address] [facility] Comment on above: Performed By: #### C BC #### [facility] [address] [place] [address] Dr. Melecio Chadwick Eosinophils/100 WBC (Bld) 1.1 % Normal 0.9-7.[address] [facility] Comment on above: Performed By: #### C BC #### [facility] [address] [place] [address] Dr. Melecio Chadwick Erythrocyte distribution width (RBC) [Ratio] 12.3 % Normal 11.0-15.[address] [facility] Comment on above: Performed By: #### C BC #### [facility] [address] [place] [address] Dr. Melecio Chadwick Hematocrit (Bld) [Volume fraction] 42.5 % Normal 36.0-48.[address] [facility] Comment on above: Performed By: #### C BC #### [facility] [address] [place] [address] Dr. Melecio Chadwick Hemoglobin (Bld) [Mass/Vol] 14.3 g/dL Normal 12.0-16.[address] [facility] Comment on above: Performed By: #### C BC #### [facility] [address] [place] [address] Dr. Melecio Chadwick IG # 0.03 10e3/ul Normal 0.00-0.[address] [facility] Comment on above: Performed By: #### C BC #### [facility] [address] [place] [address] Dr. Melecio Chadwick IG % 0.3 % Normal 0.0-0.[address] [facility] Comment on above: Performed By: #### C BC #### [facility] [address] [place] [address] Dr. Melecio Chadwick LYMPH # 3.1 103/ul Normal 1.2-3.[address] [facility] Comment on above: Performed By: #### C BC #### [facility] [address] [place] [address] Dr. Melecio Chadwick Lymphocytes/100 WBC (Bld) 29.8 % Normal 20.5-60.[address] [facility] Comment on above: Performed By: #### C BC #### [facility] [address] [place] [address] Dr. Melecio Chadwick MANUAL DIFF REQ NO Normal [facility] Comment on above: Performed By: #### C BC #### [facility] [address] [address] [address] Melecio Chadwick MCH (RBC) [Entitic mass] 31.0 pg Normal 26.7-34.[address] [facility] Comment on above: Performed By: #### C BC #### [facility] [address] [place] [address] Dr. Melecio Chadwick MCHC (RBC) [Mass/Vol] 33.6 g/dL Normal 29.9-35.[address] [facility] Comment on above: Performed By: #### C BC #### [facility] [address] [place] [address] Dr. Melecio Chadwick MCV (RBC) [Entitic vol] 92.2 fL Normal 81.0-99.[address] [facility] Comment on above: Performed By: #### C BC #### [facility] [address] [place] [address] Dr. Melecio Chadwick MONO # 0.6 103/ul Normal 0.3-0.[address] [facility] Comment on above: Performed By: #### C BC #### [facility] [address] [place] [address] Dr. Melecio Chadwick Monocytes/100 WBC (Bld) 5.8 % Normal 1.7-12.[address] [facility] Comment on above: Performed By: #### C BC #### [facility] [address] [place] [address] Dr. Melecio Chadwick NEUT # 6.5 103/ul Normal 1.4-6.[address] [facility] Comment on above: Performed By: #### C BC #### [facility] [address] [place] [address] Dr. Melecio Chadwick Neutrophils/100 WBC (Bld) 62.8 % Normal 43.0-75.[address] [facility] Comment on above: Performed By: #### C BC #### [facility] [address] [place] [address] Dr. Melecio Chadwick Platelet mean volume (Bld) [Entitic vol] 9.0 fL Critically low 9.5-13.[address] [facility] Comment on above: Performed By: #### C BC #### [facility] [address] [place] [address] Dr. Melecio Chadwick PLT 268 103/ul Normal 150-[address] [facility] Comment on above: Performed By: #### C BC #### [facility] [address] [place] [address] Dr. Melecio Chadwick RBC 4.61 106/ul Normal 4.20-5.[address] [facility] Comment on above: Performed By: #### C BC #### [facility] [address] [place] [address] Dr. Melecio Chadwick WBC 10.4 103/ul Normal 4.0-11.[address] [facility] Comment on above: Performed By: #### C BC #### [facility] [address] [place] [address] Dr. Melecio Chadwick LIPASEon 03-24-2022 Lipase [Catalytic activity/Vol] 114.0 U/L Normal 73.0-393.[address] [facility] Comment on above: Performed By: #### C MP DARION, LIPA #### [facility] [address] [place] [address] Dr. Melecio Chadwick PROF 14(COMP METB)on 023 Albumin [Mass/Vol] 3.5 g/dL Normal 3.4-5.[address] [facility] Comment on above: Performed By: #### C MP, DARION, LIPA #### [facility] [address] [place] [address] Dr. Melecio Chadwick Albumin/Globulin [Mass ratio] 0.8 {ratio} Normal [facility] Comment on above: Performed By: #### C MP, DARION, LIPA #### [facility] [address] [place] [address] Dr. Melecio Chadwick ALP [Catalytic activity/Vol] 85 U/L Normal 46-[address] [facility] Comment on above: Performed By: #### C MP, DARION, LIPA #### [facility] [address] [place] [address] Dr. Melecio Chadwick ALT [Catalytic activity/Vol] 21 U/L Normal 14-[address] [facility] Comment on above: Performed By: #### C MP, DARION, LIPA #### [facility] [address] [place] [address] Dr. Melecio Chadwick Anion gap [Moles/Vol] 11.6 mmol/L Normal [facility] Comment on above: Performed By: #### C MP, DARION, LIPA #### [facility] [address] [place] [address] Dr. Melecio Chadwick AST [Catalytic activity/Vol] 15 U/L Normal 15-[address] [facility] Comment on above: Performed By: #### C MP, DARION, LIPA #### [facility] [address] [place] [address] Dr. Melecio Chadwick Bilirubin [Mass/Vol] 0.3 mg/dL Normal 0.2-1.[address] [facility] Comment on above: Performed By: #### C MP, DARION, LIPA #### [facility] [address] [place] [address] Dr. Melecio Chdawick Calcium [Mass/Vol] 8.8 mg/dL Normal 8.5-10.[address] [facility] Comment on above: Performed By: #### C MP, DARION, LIPA #### [facility] [address] [place] [address] Dr. Melecio Chadwick Chloride [Moles/Vol] 102 mmol/L Normal 98-[address] [facility] Comment on above: Performed By: #### C MP, DARION, LIPA #### [facility] [address] [place] [address] Dr. Melecio Chadwick CO2 [Moles/Vol] 28.5 mmol/L Normal 21.0-32.0 [facility] Comment on above: Performed By: #### C MP, DARION, LIPA #### [facility] [address] [place] [address] Dr. Melecio Chadwick Creatinine [Mass/Vol] 0.76 mg/dL Normal 0.55-1.[address] [facility] Comment on above: Performed By: #### C MP, DARION, LIPA #### [facility] [address] [place] [address] Dr. Melecio Chadwick EGFR-AF SAMOAN >60 Normal >=60 [facility] Comment on above: Performed By: #### C DARION LOGAN, LIPA #### [facility] [address] [place] [address] Dr. Melecio Chadwick EGFR-NON AF SAMOAN >60 Normal >=[address] [facility] Comment on above: Performed By: #### C MP, DARION, LIPA #### [facility] [address] [place] [address] Dr. Melecio Chadwick Globulin (S) [Mass/Vol] 4.2 g/dL Normal [facility] Comment on above: Performed By: #### C DARION LOGAN, LIPA #### [facility] [address] [place] [address] Dr. Melecio Chadwick Glucose [Mass/Vol] 97 mg/dL Normal 74-[address] [facility] Comment on above: Performed By: #### C DOREEN DARION, LIPA #### [facility] [address] [place] [address] Dr. Melecio Chadwick Potassium [Moles/Vol] 4.1 mmol/L Normal 3.5-5.[address] [facility] Comment on above: Performed By: #### C DARION LOGAN, LIPA #### [facility] [address] [place] [address] Dr. Melecio Chadwick Protein [Mass/Vol] 7.7 g/dL Normal 6.4-8.[address] [facility] Comment on above: Performed By: #### C DOREEN DARION, LIPA #### [facility] [address] [place] [address] Dr. Melecio Chadwick Sodium [Moles/Vol] 138 mmol/L Normal 136-[address] [facility] Comment on above: Performed By: #### C DORENE DARION, LIPA #### [facility] [address] [place] [address] Dr. Melecio Chadwick Urea nitrogen [Mass/Vol] 9.0 mg/dL Normal 7.0-18.[address] [facility] Comment on above: Performed By: #### C DOREEN DARION, LIPA #### [facility] [address] [place] [address] Dr. Melecio Chadwick Urea nitrogen/Creatini ne [Mass ratio] 11.8 mg/mg Normal [facility] [facility] Comment on above: Performed By: #### C MP, DARION, LIPA #### [facility] [address] [place] [address] Dr. Melecio Chadwick AMYLASEon 03-19-2022 Amylase [Catalytic activity/Vol] 44 U/L Normal 25-[address] [facility] Comment on above: Performed By: #### A MY, CMP, LIPA #### [facility] [address] [place] [address] Dr. Melecio Chadwick CBC AUTO DIFFon 03-19-2022 BASO # 0.0 103/ul Normal 0.0-0.[address] [facility] Comment on above: Performed By: #### C BC #### [facility] [address] [place] [address] Dr. Melecio Chadwick Basophils/100 WBC (Bld) 0.2 % Normal 0.2-2.[address] [facility] Comment on above: Performed By: #### C BC #### [facility] [address] [place] [address] Dr. Melecio Chadwick EO # 0.1 103/ul Normal 0.0-0.[address] [facility] Comment on above: Performed By: #### C BC #### [facility] [address] [place] [address] Dr. Melecio Chadwick Eosinophils/100 WBC (Bld) 1.5 % Normal 0.9-7.[address] [facility] Comment on above: Performed By: #### C BC #### [facility] [address] [place] [address] Dr. Melecio Chadwick Erythrocyte distribution width (RBC) [Ratio] 12.4 % Normal 11.0-15.[address] [facility] Comment on above: Performed By: #### C BC #### [facility] [address] [place] [address] Dr. Melecio Chadwick Hematocrit (Bld) [Volume fraction] 41.8 % Normal 36.0-48.[address] [facility] Comment on above: Performed By: #### C BC #### [facility] [address] [place] [address] Dr. Melecio Chadwick Hemoglobin (Bld) [Mass/Vol] 13.2 g/dL Normal 12.0-16.[address] [facility] Comment on above: Performed By: #### C BC #### [facility] [address] [place] [address] Dr. Melecio Chadwick IG # 0.02 10e3/ul Normal 0.00-0.[address] [facility] Comment on above: Performed By: #### C BC #### [facility] [address] [place] [address] Dr. Melecio Chadwick IG % 0.2 % Normal 0.0-0.[address] [facility] Comment on above: Performed By: #### C BC #### [facility] [address] [place] [address] Dr. Melecio Chadwick LYMPH # 3.3 103/ul Normal 1.2-3.[address] [facility] Comment on above: Performed By: #### C BC #### [facility] [address] [place] [address] Dr. Melecio Chadwick Lymphocytes/100 WBC (Bld) 38.0 % Normal 20.5-60.[address] [facility] Comment on above: Performed By: #### C BC #### [facility] [address] [place] [address] Dr. Melecio Chadwick MANUAL DIFF REQ NO Normal [facility] Comment on above: Performed By: #### C BC #### [facility] [address] [place] [address] Dr. Melecio Chadwick MCH (RBC) [Entitic mass] 30.9 pg Normal 26.7-34.[address] [facility] Comment on above: Performed By: #### C BC #### [facility] [address] [place] [address] Dr. Melecio Chadwick MCHC (RBC) [Mass/Vol] 31.6 g/dL Normal 29.9-35.[address] [facility] Comment on above: Performed By: #### C BC #### [facility] [address] [id number] [address] Melecio Chadwick MCV (RBC) [Entitic vol] 97.9 fL Normal 81.0-99.[address] [facility] Comment on above: Performed By: #### C BC #### [facility] [address] [place] [address] Dr. Melecio Chadwick MONO # 0.4 103/ul Normal 0.3-0.[address] [facility] Comment on above: Performed By: #### C BC #### [facility] [address] [place] [address] Dr. Melecio Chadwick Monocytes/100 WBC (Bld) 4.6 % Normal 1.7-12.[address] [facility] Comment on above: Performed By: #### C BC #### [facility] [address] [place] [address] Dr. Melecio Chadwick NEUT # 4.8 103/ul Normal 1.4-6.[address] [facility] Comment on above: Performed By: #### C BC #### [facility] [address] [place] [address] Dr. Melecio Chadwick Neutrophils/100 WBC (Bld) 55.5 % Normal 43.0-75.[address] [facility] Comment on above: Performed By: #### C BC #### [facility] [address] [place] [address] Dr. Melecio Chadwick Platelet mean volume (Bld) [Entitic vol] 9.7 fL Normal 9.5-13.[address] [facility] Comment on above: Performed By: #### C BC #### [facility] [address] [place] [address] Dr. Melecio Chadwick PLT 258 103/ul Normal 150-[address] [facility] Comment on above: Performed By: #### C BC #### [facility] [address] [place] [address] Dr. Melecio Chadwick RBC 4.27 106/ul Normal 4.20-5.[address] [facility] Comment on above: Performed By: #### C BC #### [facility] [address] [place] [address] Dr. Melecio Chadwick WBC 8.7 103/ul Normal 4.0-11.[address] [facility] Comment on above: Performed By: #### C BC #### [facility] [address] [place] [address] Dr. Melecio Chadwick LIPASEon 03-19-2022 Lipase [Catalytic activity/Vol] 119.0 U/L Normal 73.0-393.[address] [facility] Comment on above: Performed By: #### A MY, CMP, LIPA #### [facility] [address] [place] [address] Dr. Melecio Chadwick PROF 14(COMP METB)on 023 Albumin [Mass/Vol] 3.2 g/dL Critically low 3.4-5.[address] [facility] Comment on above: Performed By: #### A MY, CMP, LIPA #### [facility] [address] [place] [address] Dr. Melecio Chadwick Albumin/Globulin [Mass ratio] 0.9 {ratio} Normal [facility] Comment on above: Performed By: #### A MY, CMP, LIPA #### [facility] [address] [place] [address] Dr. Melecio Chadwick ALP [Catalytic activity/Vol] 76 U/L Normal 46-[address] [facility] Comment on above: Performed By: #### A MY, CMP, LIPA #### [facility] [address] [place] [address] Dr. Melecio Chadwick ALT [Catalytic activity/Vol] 18 U/L Normal 14-[address] [facility] Comment on above: Performed By: #### A MY, CMP, LIPA #### [facility] [address] [place] [address] Dr. Melecio Chadwick Anion gap [Moles/Vol] 11.6 mmol/L Normal [facility] Comment on above: Performed By: #### A MY, CMP, LIPA #### [facility] [address] [place] [address] Dr. Melecio Chadwick AST [Catalytic activity/Vol] 14 U/L Critically low 15-[address] [facility] Comment on above: Performed By: #### A MY, CMP, LIPA #### [facility] [address] [place] [address] Dr. Melecio Chadwick Bilirubin [Mass/Vol] 0.2 mg/dL Normal 0.2-1.[address] [facility] Comment on above: Performed By: #### A MY, CMP, LIPA #### [facility] [address] [place] [address] Dr. Melecio Chadwick Calcium [Mass/Vol] 7.9 mg/dL Critically low 8.5-10.[address] [facility] Comment on above: Performed By: #### A MY, CMP, LIPA #### [facility] [address] [place] [address] Dr. Melecio Chadwick Chloride [Moles/Vol] 105 mmol/L Normal 98-[address] [facility] Comment on above: Performed By: #### A MY, CMP, LIPA #### [facility] [address] [place] [address] Dr. Melecio Chadwick CO2 [Moles/Vol] 25.8 mmol/L Normal 21.0-32.0 [facility] Comment on above: Performed By: #### A MY, CMP, LIPA #### [facility] [address] [place] [address] Dr. Melecio Chadwick Creatinine [Mass/Vol] 0.67 mg/dL Normal 0.55-1.[address] [facility] Comment on above: Performed By: #### A MY, CMP, LIPA #### [facility] [address] [place] [address] Dr. Melecio Chadwick EGFR-AF SAMOAN >60 Normal >=60 [facility] Comment on above: Performed By: #### A MY, CMP, LIPA #### [facility] [address] [place] [address] Dr. Melecio Chadwick EGFR-NON AF SAMOAN >60 Normal >=[address] [facility] Comment on above: Performed By: #### A MY, CMP, LIPA #### [facility] [address] [place] [address] Dr. Melecio Chadwick Globulin (S) [Mass/Vol] 3.6 g/dL Normal [facility] Comment on above: Performed By: #### A MY, CMP, LIPA #### [facility] [address] [place] [address] Dr. Melecio Chadwick Glucose [Mass/Vol] 95 mg/dL Normal 74-[address] [facility] Comment on above: Performed By: #### A MY, CMP, LIPA #### [facility] [address] [place] [address] Dr. Melecio Chadwick Potassium [Moles/Vol] 3.4 mmol/L Critically low 3.5-5.[address] [facility] Comment on above: Performed By: #### A MY CMP, LIPA #### [facility] [address] [place] [address] Dr. Melecio Chadwick Protein [Mass/Vol] 6.8 g/dL Normal 6.4-8.[address] [facility] Comment on above: Performed By: #### A MY CMP, LIPA #### [facility] [address] [place] [address] Dr. Melecio Chadwick Sodium [Moles/Vol] 139 mmol/L Normal 136-[address] [facility] Comment on above: Performed By: #### A MY CMP, LIPA #### [facility] [address] [place] [address] Dr. Melecio Chadwick Urea nitrogen [Mass/Vol] 6.0 mg/dL Critically low 7.0-18.[address] [facility] Comment on above: Performed By: #### A MY, CMP, LIPA #### [facility] [address] [place] [address] Dr. Melecio Chadwick Urea nitrogen/Creatini ne [Mass ratio] 9.0 mg/mg Normal [facility] Comment on above: Performed By: #### A MY CMP, LIPA #### [facility] [address] [place] [address] Dr. Melecio Chadwick Intraoperative Noteon 2017 Intraoperative Note [id number]#1.00OTGTIFF Normal [facility] Intraoperative Noteon 2017 Intraoperative Note [id number]#1.00[facility] History and Physicalon 01-23 History and Physical [id number]#1.00[facility] Provider Orderson 01-23-2017 Protein [id number]#1.00[facility] Coding Summaryon 12-08-2016 Coding Summary CODING DATE: 017 [facility] STATUS: Home PAYOR: Commercial Insurance APC DESCRIPTION 5113 Level 3 Musculoskeletal Procedures ADMIT DX: REASON FOR VISIT DX: S83.242A Other tear of medial meniscus, current injury, left knee, initial encounter FINAL DX: PRINCIPAL: M22.42 Chondromalacia patellae, left knee SECONDARY: M94.9 Disorder of cartilage, unspecified PYMT PROC APC STAT DESCRIPTION DOCTOR NAME DATE 85223 5113 J1 Arthroscopy, knee, ARIES HARO 12/05/2016 [...] [facility] Consent Formson 12-08-2016 Consent Forms [id number]#1.00[facility] Discharge Instructionson Discharge Instructions [id number]#[address] [place] [address] Intraoperative Noteon 2016 Intraoperative Note [id number]#1.00[facility] MAGR PACU Recordon 7 MAGR PACU Record MAGR PACU Record [facility] Primary Physician: ARIES HARO Finalized Date/Time: 12/08/16 10:49:55 Pt. Name: TAMY WALLS/Sex: 1980 FEMALE Med Rec #: [id number] Physician: ARIES HARO Financial #: [id number] Pt. Type: D Room/Bed: / Admit/Disch: 12/05/16 [...] Sana Jarvis RN 12/08/16 10:[address] [facility] Preoperative Recordon 1 [facility] Preoperative Record [facility] Pre-Op Record Summary Primary Physician: ARISE HARO Finalized Date/Time: 12/08/16 10:20:04 Pt. Name: TAMY WALLS/Sex: 1980 FEMALE Med Rec #: [id number] Physician: ARIES HARO Financial #: [id number] Pt. Type: D Room/Bed: / Admit/Disch: 12/05/16 [...] [facility] Medication Managementon 11-11 Medication Management [id number]#1.00OTGTIFF [facility] Telemetry Stripson 7 Telemetry Strips [id number]#1.00OTGTIFF [facility] Anesthesia Noteon 12-05-2016 Anesthesia Note Patient: RUFUS WALLS : 36 years Sex: FEMALE : [birth year]Associated Diagnoses: NoneAuthor: Bunny Briggs MDPostoperative InformationPost Operative Note: Operative Day.Anesthetic utilized: General.Health StatusAllergies:Allergic Reactions (All)Severity Not DocumentedDilaudid- Angio-oedema.Percocet 5/325- Nausea & vomiting.Problem list (past medical history):All ProblemsAnxiety / SNOMED CT 75254548 / ConfirmedPhysical ExaminationVS/MeasurementsV ital Signs (last 24 [...] (past medical history):All ProblemsAnxiety / SNOMED CT 15980007 / ConfirmedHistoriesFamily History:No family history items have been selected or recorded.Procedure history:Hysterectomy (456599987) in 2014 at 33 Years.Comments:11/28/2016 10:07 - Shayy Sylvester RNpartialAppendectomy (656543635) in 2013 at 32 Years.Tubal ligation (045434980) in 2004 at 24 Years.Cholecystectomy (64263217) in 2000 at 19 Years.Ear care (805671086).Comments:2016 10:06 - Shayy Sylvester RNtubes d8Yjgosd History Alcohol Assessment Use: Never. Tobacco Assessment former smoker quit 2 yrs ago Tobacco Use:. Substance Abuse Assessment Substance use: Never..Social & Psychosocial KcpvjiQtdhzqn73/20/2017 Alcohol Use: NeverSubstance Abuse11/28/2016 Substance use: MiqtcItoefvf78/20/2017 Smoking tobacco use: former smoker quit 2 [...] Cliff JaimeB./Sex: 1980 FEMALE Med Rec #: [id number] Physician: ARIES HARO Financial #: [id number] Pt. Type: D Room/Bed: / Admit/Disch: 12/05/16 [...] Role Performed Surgeon - Primary Anesthesiologist of Returns Supervisor Record Time In 12/05/16 10:37:00 12/05/16 10:37:00 12/05/16 10:37:00 Time Out 12/05/16 11:30:00 12/05/16 11:48:00 12/05/16 11:48:00 Procedure Arthroscopy Knee(Left) Arthroscopy Knee(Left) Arthroscopy Knee(Left) Last Modified By: Leslie Tolentino RN, Stephanie RN Sauer, Stephanie RN 12/05/16 11:52:02 12/05/16 11:52:02 12/05/16 11:52:02 Entry 4 Entry 5 Entry 6 Case Attendee Ro Morrison RN, Leigh-Ann CST Nikolaus, Linda M Role Performed Returns Supervisor Personnel Placement Specialist Scrub Personnel Time In 12/05/16 10:37:00 12/05/16 [...] mask Flow Rate 15 Last Modified By: Lelsie Tolentino RN 12/05/16 11:20:09 Case Comments Finalized By: Leslie Tolentino RN Document Signatures Signed By: Leslie Tolentino RN 12/05/16 11:52 [facility] MAGR Postoperative Recordon 12-05-2016 MAGR Postoperative Record MAGR Phase II Record Summary Primary Physician: ARIES HARO Finalized Date/Time: 12/05/16 14:50:11 Pt. Name: TAMY WALLS /Sex: 1980 FEMALE Med Rec #: [id number] Physician: ARIES HARO Financial #: [id number] Pt. Type: D Room/Bed: / Admit/Disch: 12/05/16 [...] 1320.....care assumed from Og Jarvis RN...report received 2702 - discharge instructions reviewed with patient, daughter, [...] 76 mm[Hg] Anna Callahan MD Work Phone: [place] 10-27-2022 20:03-0400 SaO2% (BldA) [Mass fraction] 98 % Anna Callahan MD Work Phone: [place] 10-27-2022 20:03-0400 Systolic blood pressure 126 mm[Hg] Anna Callahan MD Work Phone: [place] 10-27-2022 15:17-0400 Body weight 104.33 kg Anna Callahan MD Work Phone: [place] 10-27-2022 15:15-0400 Body temperature 97.9 [degF] Anna Callahan MD Work Phone: [facility] 10-27-2022 15:15-0400 Heart rate 100 /min Anna Callahan MD Work Phone: [place] 10-27-2022 15:15-0400 Respiratory rate 18 /min nAna Callahan MD Work Phone: [place] Encounters Encounter Date Encounter Type Care Provider Facility Start: 10-27-2022 End: 10-27-2022 Emergency department patient visit Anna Callahan MD Work Phone: [facility] ED Comment on above: Left flank pain (Berenice oreilly Dx) Start: 04-21-2022 End: 04-22-[address] FRANCIA RODRIGUEZ . Facility:[facility] Start: 03-24-2022 End: 03-25-[address] FRANCIA RODRIGUEZ . Facility:[facility] Start: 03-19-2022 End: 03-19-[address] FRANCIA RODRIGUEZ . Facility: Start: 12-05-2016 End: 12-05-2016 Patient encounter [facility] Facility:[facility] Start: 11-29-2016 End: 11-29-2016 Patient encounter [facility] Facility:[facility] Procedures Date Procedure Procedure Detail Performing Clinician Start: 10-27-2022 Ct abdomen & pelvis w/contrast material Tyler Galarza PA-C Work Phone: Start: 10-27-2022 Urnls dip stick/tabl et reagent auto microscopy Anna Callahan MD Work Phone: Start: 10-27-2022 Comprehensive metabo lic panel Anna Callahan MD Work Phone: Plan of Treatment Date Care Activity Detail Author Start: 09-09-2022 Influenza vaccination Flu vaccine (# 1) [facility] Start: 2021 Lipid panel Lipids [facility] Start: 05-01-2011 Screening for malign ant neoplasm of cervix [facility] Start: 2002 Screening for malign ant neoplasm of cervix Pap smear [facility] Start: 2000 DTaP/Tdap/Td vaccine (1 - Tdap) DTaP/Tdap/Td vaccine (1 - Tdap) [facility] Start: 05-01-1999 Hepatitis C screening Hepatitis C sc reen [facility] Start: 1996 HIV screening HIV screen [facility] Start: 1993 Depression Screen Depression Screen [facility] Start: 1982 Varicella vaccine (1 of 2 - 2-dose childhood series) Varicella vaccine (1 of 2 - 2-dose childhood series) [facility] Start: 1980 COVID-19 Vaccine (#1) COVID-19 Vacci ne (#1) [facility] Start: 1981 Hepatitis B vaccine (1 of 3 - 3-dose series) Hepatitis B vaccine (1 of 3 - 3-dose series) [facility] End: 10-27-2022 Culture, Urine [facility] Work Phone: Comment on above: One Time for 1 Occur rences starting 10/27/2022 until 10/27/2022 Payers Date Payer Category Payer Unknown [id number] 1980 Unknown [id number] 2.16.84 [id number] 1980 Unknown [id number] 2.16.84 [id number] 1980 Unknown [id number] 2.16.84 [id number] 1980 Unknown [id number] [id number] 1958 Unknown [id number] Social History Date Type Detail Facility Tobacco smoking stat [facility] Tobacco smoking consumption unknown [facility] Start: 1980 Sex Assigned At Not on file [facility] Gender identity Not on file [facility] Hospital Discharge instructions 10-27-2022 Discharge InstructionsAttachments Note [...] cannot be sent through Care Everywhere.Flank Pain (Tajik)documented in this encounter [facility] Evaluation note Note Date & Type Note Facility Evaluation note Diagnosis Left flank pain- Primary Abdominal pain, unspecified site documented in this encounter [facility] Summary Purpose Family History No Family History Records FoundNo Family History Records FoundNo Family History Records Found Advance Directives No Advanced Directives Records FoundNo Advanced Directives Records FoundNo Advanced Directives Records Found Additional Source Comments INFORMATION SOURCE (unrecogn ized section and content) DATE CREATED AUTHOR 08/22/2017 [place] [facility] DATE CREATED AUTHOR AUTHOR'S ORGANIZ ATION 04/28/2022 [facility] DATE CREATED AUTHOR AUTHOR'S ORGANIZ ATION 08/06/2023 [facility] Reason for Visit (unrecogniz ed [...] BE BASED ON THE PRIMARY CLINICAL RECORDS. [employer] [facility]. provides no warranty or guarantee of the accuracy or completeness of information in this document.
[2023-11-10 12:28] LABS: Alanine Aminotransferase 28 U/L (14-59); Albumin Globulin Ratio 0.8; Albumin Level 2.7 g/dL (3.4-5.0); Alkaline Phosphatase 64 U/L (46-116); Anion Gap 12.1; Aspartate Amino Transferase 13 U/L (15-37); BUN Creatinine Ratio 6.5; Bilirubin Total 0.5 mg/dL (0.2-1.0); Calcium 8.5 mg/dL (8.5-10.1); Carbon Dioxide 25.8 mmol/L (21.0-32.0); Chloride 103 mmol/L (98-107); Estimated GFR (African America >60 (>=60); Estimated GFR (Non-African Ame >60 (>=60); Globulin 3.4 g/dL; Glucose 128 mg/dL (74-106); Potassium 3.9 mmol/L (3.5-5.1); Sodium 137 mmol/L (136-145); Total Protein 6.1 g/dL (6.4-8.2)
== END 2023-11-10 11:45 | disposition home or self-care (01) ==
LOC: LAB 11:45
PROVIDERS: PCP Family Medicine; Visit Provider Family Medicine
DX: D72.829 Elevated white blood cell count, unspecified (principal)
CPT/HCPCS: 36415; 80053; 83690; 85025

== ENCOUNTER 2023-11-20 08:36 | Outpatient (OUT) | payer OTHER, SELFPAY ==
--- OUTSIDE RECORDS SUMMARY | 2023-11-20 08:38 | XMS_ITS | CCD ---
Author Organization [facility] Care Team Providers Care Board Of Directors Name Role Phone STEPANIC, ARIES C Unavailable [...] Unavailable HOY ., DR FELDMAN Consulting Unavailable SIBLEY, DR MAURICIO Fraser Consulting Unavailable Unavailable Primary Care Provider ANNA Crain Attending Unavailable Allergies Allergy Classification Reported Allergen(s) Allergy Type Date of Onset Reaction(s) Facility (1 source) acetaminophen / oxyCODONE; Translations: [Percocet 5/325] Drug Allergy [facility] Repository (2 sources) HYDROmorphone; Translations: [Dilaudid] Drug Allergy [facility] Repository (1 source) egg extract Drug Allergy 02-09-2006 [facility] Repository (1 source) HYDROmorphone Drug Allergy 10-27-2022 [facility] Medications Current Medications Medication Drug Class(es) Dates [...] Diffon 08-05-2023 Abs. Basophil <0.03 Normal 0.00-0.20 [facility] Comment on above: Performed By: #### T , CDP #### [facility] [address] [place], [place] [id number] Director Of Speech Pathology: Mauricio Irby MD #### LIPR, FT3, INSU, T4, FE, GLYHGB #### [address] [id number] Director Of Speech Pathology: Casa Medrano MD Abs.Imm.Granulocy te 0.05 k/uL Normal 0.00-0.[address] [facility] Comment on above: Performed By: #### T SH, CDP #### [address] [place] [id number] Director Of Speech Pathology: Mauricio Irby MD #### LIPR, FT3, INSU, T4, FE, GLYHGB #### [place] [address] Director Of Speech Pathology: Casa Medrano MD Abs.Neutrophil (Seg) 7.71 k/uL Normal 1.50-8.[address] [facility] Comment on above: Performed By: #### T SH, CDP #### [address] [place] [id number] Director Of Speech Pathology: Mauricio Irby MD #### LIPR, FT3, INSU, T4, FE, GLYHGB #### [place] [id number] Director Of Speech Pathology: Casa Medrano MD Basophils/100 WBC (Bld) 0 % Normal 0-[address] [facility] Comment on above: Performed By: #### T SH, CDP #### [address] [place] [id number] Director Of Speech Pathology: Mauricio Irby MD #### LIPR, FT3, INSU, T4, FE, GLYHGB #### [address] [phone] Director Of Speech Pathology: Casa Medrano MD Eosinophils (Bld) [#/Vol] 0.10 10*3/uL Normal 0.00-0.[address] [facility] Comment on above: Performed By: #### T SH, CDP #### [address] [place] [address] Director Of Speech Pathology: Mauricio Irby MD #### LIPR, FT3, INSU, T4, FE, GLYHGB #### [address] [phone] Director Of Speech Pathology: Casa Medrano MD Eosinophils/100 WBC (Bld) 1 % Normal 1-[address] [facility] Comment on above: Performed By: #### T SH, CDP #### [address] [place] [address] Director Of Speech Pathology: Mauricio Irby MD #### LIPR, FT3, INSU, T4, FE, GLYHGB #### [address] [phone] Director Of Speech Pathology: Casa Medrano MD Erythrocyte distribution width (RBC) [Ratio] 12.5 % Normal 11.8-14.[address] [facility] Comment on above: Performed By: #### T SH, CDP #### [address] [place] [address] Director Of Speech Pathology: Mauricio Irby MD #### LIPR, FT3, INSU, T4, FE, GLYHGB #### [address] [id number] Director Of Speech Pathology: Casa Medrano MD Hematocrit (Bld) [Volume fraction] 45.1 % Normal 36.3-47.[address] [facility] Comment on above: Performed By: #### T SH, CDP #### [address] [place] [address] Director Of Speech Pathology: Mauricio Irby MD #### LIPR, FT3, INSU, T4, FE, GLYHGB #### [address] [phone] Director Of Speech Pathology: Casa Medrano MD Hemoglobin (Bld) [Mass/Vol] 15.2 g/dL High 11.9-15.[address] [facility] Comment on above: Performed By: #### T SH, CDP #### [facility] [address] [place] [address] Dr[place] [phone] Director Of Speech Pathology: Mauricio Irby MD #### LIPR, FT3, INSU, T4, FE, GLYHGB #### [address] [address] Director Of Speech Pathology: Casa Medrano MD Immature granulocytes/100 WBC (Bld) 1 % High [address] [facility] Comment on above: Performed By: #### T SH, CDP #### [address] [place] [phone] Director Of Speech Pathology: Mauricio Irby MD #### LIPR, FT3, INSU, T4, FE, GLYHGB #### [place] [address] Director Of Speech Pathology: Casa Medrano MD Lymphocytes (Bld) [#/Vol] 2.55 10*3/uL Normal 1.10-3.[address] [facility] Comment on above: Performed By: #### T SH, CDP #### [facility] [address] [place] [address] Dr. [place] [phone] Director Of Speech Pathology: Mauricio Irby MD #### LIPR, FT3, INSU, T4, FE, GLYHGB #### [address] [phone] Director Of Speech Pathology: Casa Medrano MD Lymphocytes/100 WBC (Bld) 23 % Low 24-[address] [facility] Comment on above: Performed By: #### T SH, CDP #### [facility] [address] [place] [address] Dr[place] [phone] Director Of Speech Pathology: Mauricio Irby MD #### LIPR, FT3, INSU, T4, FE, GLYHGB #### [place] [address]46[address] [place], [place] [phone] Director Of Speech Pathology: Casa Medrano MD MCH (RBC) [Entitic mass] 31.6 pg Normal 25.2-33.[address] [facility] Comment on above: Performed By: #### T SH, CDP #### [address] [place] [phone] Director Of Speech Pathology: Mauricio Irby MD #### LIPR, FT3, INSU, T4, FE, GLYHGB #### [address] [phone] Director Of Speech Pathology: Casa Medrano MD MCHC (RBC) [Mass/Vol] 33.7 g/dL Normal 28.4-34.[address] [facility] Comment on above: Performed By: #### T SH, CDP #### [address] [place] [phone] Director Of Speech Pathology: Mauricio Irby MD #### LIPR, FT3, INSU, T4, FE, GLYHGB #### [place] [address] Director Of Speech Pathology: Casa Medrano MD MCV (RBC) [Entitic vol] 93.8 fL Normal 82.6-102.[address] [facility] Comment on above: Performed By: #### T SH, CDP #### [address] [place] [phone] Director Of Speech Pathology: Mauricio Irby MD #### LIPR, FT3, INSU, T4, FE, GLYHGB #### [place] [id number] Director Of Speech Pathology: Casa Medrano MD Monocytes (Bld) [#/Vol] 0.60 10*3/uL Normal 0.10-1.[address] [facility] Comment on above: Performed By: #### T SH, CDP #### [facility] [address] [place], [place] [id number] Director Of Speech Pathology: Mauricio Irby MD #### LIPR, FT3, INSU, T4, FE, GLYHGB #### [address] [phone] Director Of Speech Pathology: Casa Medrano MD Monocytes/100 WBC (Bld) 5 % Normal 3-[address] [facility] Comment on above: Performed By: #### T SH, CDP #### [facility] [address] [place] [address] Director Of Speech Pathology: Mauricio Irby MD #### LIPR, FT3, INSU, T4, FE, GLYHGB #### [address] [phone] Director Of Speech Pathology: Casa Medrano MD Neutrophil (Seg) 70 % High 36-65 [facility] Comment on above: Performed By: #### T SH, CDP #### [facility] [address] [place] [address] [place] [address] Director Of Speech Pathology: Mauricio Irby MD #### LIPR, FT3, INSU, T4, FE, GLYHGB #### [address] [address] Director Of Speech Pathology: Casa Medrano MD NRBC Automated 0.0 per 100 WBC Normal 0.[address] [facility] Comment on above: Performed By: #### T SH, CDP #### [facility] [address] [place] [address] Director Of Speech Pathology: Mauricio Irby MD #### LIPR, FT3, INSU, T4, FE, GLYHGB #### [address] [phone] Director Of Speech Pathology: Casa Medrano MD Platelet mean volume (Bld) [Entitic vol] 9.2 fL Normal 8.1-13.[address] [facility] Comment on above: Performed By: #### T SH, CDP #### [address] [place], [place] [phone] Director Of Speech Pathology: Mauricio Irby MD #### LIPR, FT3, INSU, T4, FE, GLYHGB #### [place] [address]4612 [place] [address] Director Of Speech Pathology: Casa Medrano MD Platelets (Bld) [#/Vol] 297 10*3/uL Normal 138-[address] [facility] Comment on above: Performed By: #### T SH, CDP #### [address] [place], [place] [phone] Director Of Speech Pathology: Mauricio Irby MD #### LIPR, FT3, INSU, T4, FE, GLYHGB #### [address] [address] Director Of Speech Pathology: Casa Medrano MD RBC (Bld) [#/Vol] 4.81 10*6/uL Normal 3.95-5.[address] [facility] Comment on above: Performed By: #### T SH, CDP #### [address] [place], [place] 8693283 Director Of Speech Pathology: Mauricio Irby MD #### LIPR, FT3, INSU, T4, FE, GLYHGB #### [address] [address] Director Of Speech Pathology: Casa Medrano MD WBC (Bld) [#/Vol] 11.0 10*3/uL Normal 3.5-11.[address] [facility] Comment on above: Performed By: #### T SH, CDP #### [address] [place], [place] [id number] Director Of Speech Pathology: Mauricio Irby MD #### LIPR, FT3, INSU, T4, FE, GLYHGB #### [address] [phone] Director Of Speech Pathology: Casa Medrano MD Hemoglobin A1Con 08-05-2023 Glucose [Mass/Vol] 100 mg/dL Normal [facility] Comment on above: Result Comment: The ADA and AACC recommend providing the estimated average glucose result to permit better patient understanding of their HBA1c result. Performed By: #### C JANIE RAMIREZ, CP #### [facility] [address] [place] [address] Dr. [place], [place] [phone] Director Of Speech Pathology: Mauricio Irby MD HbA1c (Bld) [Mass fraction] 5.1 % Normal 4.0-6.[address] [facility] Comment on above: Performed By: #### C JANIE RAMIREZ, CP #### [address] [place], [place] [phone] Director Of Speech Pathology: Mauricio Irby MD Insulinon 08-05-2023 Insulin 19.2 mU/L Normal [facility] Comment on above: Performed By: #### T SH, CDP #### [address] [place], [place] [phone] Director Of Speech Pathology: Mauricio Irby MD #### LIPR, FT3, INSU, T4, FE, GLYHGB #### [facility] [employer] [facility] [place], [place] [id number] Director Of Speech Pathology: Casa Medrano MD Reference Range Normal [facility] Comment on above: Result Comment: Fast in.6-24.9 30 min: 20-112 60 min: 29-88 90 min: 26-84 120 min: 22-79 Performed By: #### T SH, CDP #### [facility] [address] [place] [address] [place] [address] Director Of Speech Pathology: Mauricio Irby MD #### LIPR, FT3, INSU, T4, FE, GLYHGB #### [place] [address] [place], [place] [id number] Director Of Speech Pathology: Casa Medrano MD Ironon 08-05-2023 Iron [Mass/Vol] 68 ug/dL Normal 37-145 [facility] Comment on above: Performed By: #### C DP, LIP, CP #### [address] [place] [address] Director Of Speech Pathology: Mauricio Irby MD Lipid Profileon 08-05-2023 Cholesterol [Mass/Vol] 171 mg/dL Normal 0-[address] [facility] Comment on above: Result Comment: Cholesterol Guidelines: <200 Desirable 200-240 Borderline >240 Undesirable Performed By: #### T SH, CDP #### [address] [place] [address] Director Of Speech Pathology: Mauricio Irby MD #### LIPR, FT3, INSU, T4, FE, GLYHGB #### [address] [phone] Director Of Speech Pathology: Casa Medrano MD Cholesterol in HDL [Mass/Vol] 52 mg/dL Normal >[address] [facility] Comment on above: Result Comment: HDL Guidelines: <40 Undesirable 40-59 Borderline >59 Desirable Performed By: #### T SH, CDP #### [address] [place] [address] Director Of Speech Pathology: Mauricio Irby MD #### LIPR, FT3, INSU, T4, FE, GLYHGB #### [address] [phone] Director Of Speech Pathology: Casa Medrano MD Cholesterol in LDL [Mass/Vol] 100 mg/dL Normal 0-[address] [facility] Comment on above: Result Comment: LDL Guidelines: <100 Desirable 100-129 Near to/above Desirable 130-159 Borderline >159 Undesirable Direct (measured) LDL and calculated LDL are not interchangeable tests. Performed By: #### T SH, CDP #### [address] [place] [address] Director Of Speech Pathology: Mauricio Irby MD #### LIPR, FT3, INSU, T4, FE, GLYHGB #### [place] [address] [place] [address] Director Of Speech Pathology: Casa Medrano MD Cholesterol in VLDL [Mass/Vol] 19 mg/dL Normal [facility] Comment on above: Performed By: #### T SH, CDP #### [address] [place], [place] [phone] Director Of Speech Pathology: Mauricio Irby MD #### LIPR, FT3, INSU, T4, FE, GLYHGB #### [address] [address] Director Of Speech Pathology: Casa Medrano MD Cholesterol.total /Cholesterol in HDL [Mass ratio] 3.0 {ratio} Normal [facility] Comment on above: Performed By: #### T DANIEL, CDP #### [address] [place] [address] Director Of Speech Pathology: Mauricio Irby MD #### LIPR, FT3, INSU, T4, FE, GLYHGB #### [address] [phone] Director Of Speech Pathology: Casa Medrano MD Triglyceride [Mass/Vol] 93 mg/dL Normal <[address] [facility] Comment on above: Result Comment: Triglyceride Guidelines: <150 Desirable 150-199 Borderline 200-499 High >499 Very high Based on AHA Guidelines for fasting triglyceride, November 2011. Performed By: #### T SH, CDP #### [address] [place], [place] [id number] Director Of Speech Pathology: Mauricio Irby MD #### LIPR, FT3, INSU, T4, FE, GLYHGB #### [address] [address] Director Of Speech Pathology: Casa Medrano MD T3, Freeon 08-05-2023 Free T3 [Mass/Vol] 2.90 pg/mL Normal 2.00-4.[address] [facility] Comment on above: Performed By: #### C DP LIP, CP #### [address] [place] [address] Director Of Speech Pathology: Mauricio Irby MD Thyroid Stim. Horm.on 2023 Thyroid Stim. Horm. 1.33 uIU/mL Normal 0.30-5.[address] [facility] Comment on above: Performed By: #### T SH, CDP #### [address] [place] [address] Director Of Speech Pathology: Mauricio Irby MD #### LIPR, FT3, INSU, T4, FE, GLYHGB #### [place] [address] [place], [place] [phone] Director Of Speech Pathology: Casa Medrano MD Thyroxine T4on 08-05-2023 T4 [Mass/Vol] 9.9 ug/dL Normal 4.5-11.7 [facility] Comment on above: Performed By: #### T SH, CDP #### [address] [place] [address] Director Of Speech Pathology: Mauricio Irby MD #### LIPR, FT3, INSU, T4, FE, GLYHGB #### [place] [address] [place], [place] [id number] Director Of Speech Pathology: Casa Medrano MD Cult,Urineon 10-28-2022 Cult,Urine Specimen Description .CLEAN CATCH URINE Culture NO SIGNIFICANT GROWTH Report Status FINAL 10/28/[address] [facility] Comment on above: Performed By: #### C JANIE RAMIREZ, CP #### [address] [place] [address] Director Of Speech Pathology: Mauricio Irby MD CBC with Auto Differentialon 10-27-2022 Basophils (Bld) [#/Vol] 0.03 10*3/uL [facility] Basophils/100 WBC (Bld) 0 % 0 - 2 % [facility] Eosinophils (Bld) [#/Vol] 0.07 10*3/uL [facility] Eosinophils/100 WBC (Bld) 1 % 1 - 4 % [facility] Erythrocyte distribution width (RBC) [Ratio] 12.6 % 11.8 - 14.4 % [facility] Hematocrit (Bld) [Volume fraction] 43.7 % 36.3 - 47.1 % [facility] Hemoglobin (Bld) [Mass/Vol] 14.3 g/dL 11.9 - 15.1 g/dL [facility] Immature granulocytes (Bld) [#/Vol] 0.04 10*3/uL [facility] Immature granulocytes/100 WBC (Bld) 0 % 0 [facility] Interpretation and review of laboratory results Abnormal [facility] Lymphocytes/100 WBC (Bld) 27 % 24 - 43 % [facility] Lymphocytes/100 WBC (Bld) 2.50 % [facility] MCH (RBC) [Entitic mass] 31.2 pg 25.2 - 33.5 pg [facility] MCHC (RBC) [Mass/Vol] 32.7 g/dL 28.4 - 34.8 g/dL [facility] MCV (RBC) [Entitic vol] 95.4 fL 82.6 - 102.9 fL [facility] Monocytes/100 WBC (Bld) 5 % 3 - 12 % [facility] Monocytes/100 WBC (Bld) 0.44 % [facility] Neutrophils/100 WBC (Bld) 67 % High 36 - 65 % [facility] Nucleated RBC/100 WBC (Bld) [Ratio] 0.0 % 0.0 per 100 WBC [facility] Platelet mean volume (Bld) [Entitic vol] 8.9 fL 8.1 - 13.5 fL [facility] Platelets (Bld) [#/Vol] 264 10*3/uL [facility] RBC (Bld) [#/Vol] 4.58 10*6/uL 3.95 - 5.1 1 m/uL [facility] Segmented neutrophils/100 WBC (Bld) 6.32 % [facility] WBC other (Bld) [#/Vol] 9.4 [facility] CBC with Diffon 10-27-2022 Abs. Basophil 0.03 k/uL Normal 0.00-0.20 [facility] Comment on above: Performed By: #### C DP, LIP, CP #### [facility] [address] [place] [address] [place] [address] Director Of Speech Pathology: Mauricio Irby MD Abs.Imm.Granulocy te 0.04 k/uL Normal 0.00-0.[address] [facility] Comment on above: Performed By: #### C DP, LIP, CP #### [address] [place] [address] Director Of Speech Pathology: Mauricio Irby MD Abs.Neutrophil (Seg) 6.32 k/uL Normal 1.50-8.[address] [facility] Comment on above: Performed By: #### C DP, LIP, CP #### [address] [place], [place] [address] Director Of Speech Pathology: Mauricio Irby MD Basophils/100 WBC (Bld) 0 % Normal 0-[address] [facility] Comment on above: Performed By: #### C DP, LIP, CP #### [address] [place] [address] Director Of Speech Pathology: Mauricio Irby MD Eosinophils (Bld) [#/Vol] 0.07 10*3/uL Normal 0.00-0.[address] [facility] Comment on above: Performed By: #### C DP, LIP, CP #### [address] [place], [facility]83 Director Of Speech Pathology: Mauricio Irby MD Eosinophils/100 WBC (Bld) 1 % Normal 1-[address] [facility] Comment on above: Performed By: #### C DP, LIP, CP #### [address] [place] [id number] Director Of Speech Pathology: Mauricio Irby MD Erythrocyte distribution width (RBC) [Ratio] 12.6 % Normal 11.8-14.[address] [facility] Comment on above: Performed By: #### C DP LIP, CP #### [facility] [address] [place], [place] [phone] Director Of Speech Pathology: Mauricio Irby MD Hematocrit (Bld) [Volume fraction] 43.7 % Normal 36.3-47.[address] [facility] Comment on above: Performed By: #### C DP, LIP, CP #### [facility] [address] [place] [address] Director Of Speech Pathology: Mauricio Irby MD Hemoglobin (Bld) [Mass/Vol] 14.3 g/dL Normal 11.9-15.[address] [facility] Comment on above: Performed By: #### C JAMES LIP, CP #### [address] [place], [place] [address] Director Of Speech Pathology: Mauricio Irby MD Immature granulocytes/100 WBC (Bld) 0 % Normal [address] [facility] Comment on above: Performed By: #### C JAMES LIP, CP #### [address] [place] [address] Director Of Speech Pathology: Mauricio Irby MD Lymphocytes (Bld) [#/Vol] 2.50 10*3/uL Normal 1.10-3.[address] [facility] Comment on above: Performed By: #### C DP LIP, CP #### [facility] [address] [place] [address] Director Of Speech Pathology: Mauricio Irby MD Lymphocytes/100 WBC (Bld) 27 % Normal 24-[address] [facility] Comment on above: Performed By: #### C DP, LIP, CP #### [facility] [address] [place], [place] [id number] Director Of Speech Pathology: Mauricio Irby MD MCH (RBC) [Entitic mass] 31.2 pg Normal 25.2-33.[address] [facility] Comment on above: Performed By: #### C JANIE RAMIREZ, CP #### [address] [place], [place] [id number] Director Of Speech Pathology: Mauricio Irby MD MCHC (RBC) [Mass/Vol] 32.7 g/dL Normal 28.4-34.[address] [facility] Comment on above: Performed By: #### C JANIE RAMIREZ, CP #### [address] [place] [address] Director Of Speech Pathology: Mauricio Irby MD MCV (RBC) [Entitic vol] 95.4 fL Normal 82.6-102.[address] [facility] Comment on above: Performed By: #### C JANIE RAMIREZ, CP #### [address] [place], [facility]83 Director Of Speech Pathology: Mauricio Irby MD Monocytes (Bld) [#/Vol] 0.44 10*3/uL Normal 0.10-1.[address] [facility] Comment on above: Performed By: #### C JANIE RAMIREZ, CP #### [address] [place], [place] [id number] Director Of Speech Pathology: Mauricio Irby MD Monocytes/100 WBC (Bld) 5 % Normal 3-[address] [facility] Comment on above: Performed By: #### C JANIE RAMIREZ, CP #### [address] [place], [place] 7246183 Director Of Speech Pathology: Mauricio Irby MD Neutrophil (Seg) 67 % High 36-65 [facility] Comment on above: Performed By: #### C JANIE RAMIREZ, CP #### [address] [place] [address] Director Of Speech Pathology: Mauricio Irby MD NRBC Automated 0.0 per 100 WBC Normal 0.[address] [facility] Comment on above: Performed By: #### C JAMES LIP, CP #### [address] [place], [facility]83 Director Of Speech Pathology: Mauricio Irby MD Platelet mean volume (Bld) [Entitic vol] 8.9 fL Normal 8.1-13.[address] [facility] Comment on above: Performed By: #### C JAMES LIP, CP #### [address] [place], [facility]83 Director Of Speech Pathology: Mauricio Irby MD Platelets (Bld) [#/Vol] 264 10*3/uL Normal 138-[address] [facility] Comment on above: Performed By: #### C JANIE RAMIREZ, CP #### [address] [place], [place] 6531783 Director Of Speech Pathology: Mauricio Irby MD RBC (Bld) [#/Vol] 4.58 10*6/uL Normal 3.95-5.[address] [facility] Comment on above: Performed By: #### C JANIE RAMIREZ, CP #### [address] [place], [facility]83 Director Of Speech Pathology: Mauricio Irby MD WBC (Bld) [#/Vol] 9.4 10*3/uL Normal 3.5-11.[address] [facility] Comment on above: Performed By: #### C JAMES LIP, CP #### [address] [place], [facility]83 Director Of Speech Pathology: Mauricio Irby MD CT ABDOMEN PELVIS W [...] Ronni Vaughn MD 10/27/22 Final result Normal [facility] CT ABDOMEN PELVIS W IV CONTR AST Additional Contrast? Noneon 10-27-2022 No acute abnormality identified. [facility] EXAMINATION: CT OF THE ABDOMEN [...] findings do not require dedicated imaging follow-up. [facility] Ronni Vaughn MD - 10/27/2022 [...] imaging follow-up. IMPRESSION: No acute abnormality identified. [facility] Radiology Study observation (narrative) [facility] CT ABDOMEN PELVIS W IV CONTR AST Additional Contrast? NoneOrdered By: Ronni Vaughn on 10-27-2022 [facility] Work Phone: Comp Metabolic Profon 2022 Albumin [Mass/Vol] 4.0 g/dL Normal 3.5-5.[address] [facility] Comment on above: Performed By: #### C DP, LIP, CP #### [address] [place] [address] Director Of Speech Pathology: Mauricio Irby MD Albumin/Glob Ratio 1.1 Normal 1.0-2.5 [facility] [facility] Comment on above: Performed By: #### C DP LIP, CP #### [address] [place] [address] Director Of Speech Pathology: Mauricio Irby MD Alkaline Phos 82 U/L Normal 35-104 [facility] Comment on above: Performed By: #### C DP, LIP, CP #### [address] [place] [id number] Director Of Speech Pathology: Mauricio Irby MD ALT [Catalytic activity/Vol] 11 U/L Normal 5-[address] [facility] Comment on above: Performed By: #### C DP, LIP, CP #### [facility] [address] [place], [place] [id number] Director Of Speech Pathology: Mauricio Irby MD Anion gap [Moles/Vol] 8 mmol/L Low 9-[address] [facility] Comment on above: Performed By: #### C DP, LIP, CP #### [facility] [address] [place], [place] [id number] Director Of Speech Pathology: Mauricio Irby MD AST [Catalytic activity/Vol] 12 U/L Normal <[address] [facility] Comment on above: Performed By: #### C DP LIP, CP #### [facility] [address] [place], [place] [id number] Director Of Speech Pathology: Mauricio Irby MD Bilirubin [Mass/Vol] 0.2 mg/dL Low 0.3-1.[address] [facility] Comment on above: Performed By: #### C JAMES LIP, CP #### [facility] [address] [place] [address] Dr. [place], [place] [id number] Director Of Speech Pathology: Mauricio Irby MD BUN/CRE Ratio 11 Normal 9-20 [facility] Comment on above: Performed By: #### C DP LIP, CP #### [facility] [address] [place], [place] [id number] Director Of Speech Pathology: Mauricio Irby MD Calcium [Mass/Vol] 9.2 mg/dL Normal 8.6-10.[address] [facility] Comment on above: Performed By: #### C DP, LIP, CP #### [facility] [address] [place], [place] [id number] Director Of Speech Pathology: Mauricio Irby MD Chloride [Moles/Vol] 102 mmol/L Normal 98-[address] [facility] Comment on above: Performed By: #### C JANIE RAMIREZ, CP #### [facility] [address] [place] [address] Director Of Speech Pathology: Mauricio Irby MD CO2 [Moles/Vol] 27 mmol/L Normal 20-31 [facility] Comment on above: Performed By: #### C JANIE RAMIREZ, CP #### [facility] [address] [place] [address] Director Of Speech Pathology: Mauricio Irby MD Creatinine [Mass/Vol] 0.7 mg/dL Normal 0.5-0.[address] [facility] Comment on above: Performed By: #### C JANIE RAMIREZ, CP #### [facility] [address] [place] [address] Director Of Speech Pathology: Mauricio Irby MD GFR/1.73 sq M.predicted among non-blacks MDRD (S/P/Bld) [Vol rate/Area] mL/min/{1.73_m2} Normal >[address] [facility] Comment on above: Result Comment: These results [...] By: #### C JANIE RAMIREZ, CP #### [facility] [address] [place] [address] Director Of Speech Pathology: Mauricio Irby MD Glucose [Mass/Vol] 134 mg/dL High 70-[address] [facility] Comment on above: Performed By: #### C JANIE RAMIREZ, CP #### [facility] [address] [place] [address] Director Of Speech Pathology: Mauricio Irby MD Potassium [Moles/Vol] 4.1 mmol/L Normal 3.7-5.[address] [facility] Comment on above: Performed By: #### C DP LIP, CP #### [facility] [address] [place], [place] [id number] Director Of Speech Pathology: Mauricio Irby MD Protein [Mass/Vol] 7.7 g/dL Normal 6.4-8.[address] [facility] Comment on above: Performed By: #### C JAMES LIP, CP #### [facility] [address] [place], [place] [id number] Director Of Speech Pathology: Mauricio Irby MD Sodium [Moles/Vol] 137 mmol/L Normal 135-[address] [facility] Comment on above: Performed By: #### C JANIE RAMIREZ, CP #### [facility] [address] [place], [place] [id number] Director Of Speech Pathology: Mauricio Irby MD Urea nitrogen [Mass/Vol] 8 mg/dL Normal 6-[address] [facility] Comment on above: Performed By: #### C JAMES LIP, CP #### [facility] [address] [place] [address] Director Of Speech Pathology: Mauricio Irby MD Comprehensive Metabolic [facility] 10-27-2022 Albumin [Mass/Vol] 4.0 g/dL 3.5 - 5.2 g/dL [facility] Albumin/Globulin [Mass ratio] 1.1 {ratio} 1.0 - 2.5 [facility] ALP [Catalytic activity/Vol] 82 U/L 35 - 104 U/L [facility] ALT [Catalytic activity/Vol] 11 U/L 5 - 33 U/L [facility] Anion gap [Moles/Vol] 8 mmol/L Low 9 - 17 mmol/L [facility] AST [Catalytic activity/Vol] 12 U/L NINF - 32 U/L [facility] Bilirubin [Mass/Vol] 0.2 mg/dL Low 0.3 - 1.2 mg/dL [facility] Calcium [Mass/Vol] 9.2 mg/dL 8.6 - 10.4 mg/dL [facility] Chloride [Moles/Vol] 102 mmol/L 98 - 107 mmol/L [facility] CO2 [Moles/Vol] 27 mmol/L 20 - 31 mmol/L [facility] Creatinine [Mass/Vol] 0.7 mg/dL 0.5 - 0.9 mg/dL [facility] GFR/1.73 sq M.predicted MDRD (S/P/Bld) [Vol rate/Area] - PINF [facility] Comment on above: These results are not [...] 134 mg/dL High 70 - 99 mg/dL [facility] Potassium [Moles/Vol] 4.1 mmol/L 3.7 - 5.3 mmol/L [facility] Protein [Mass/Vol] 7.7 g/dL 6.4 - 8.3 g/dL [facility] Sodium [Moles/Vol] 137 mmol/L 135 - 144 mmol/L [facility] Urea nitrogen [Mass/Vol] 8 mg/dL 6 - 20 mg/dL [facility] Urea nitrogen/Creatini ne [Mass ratio] 11 mg/mg 9 - 20 [facility] Lactic Acidon 10-27-2022 Lactate (BldV) [Moles/Vol] 1.6 mmol/L 0.5 - 2.2 mmol/L [facility] Lactate [Moles/Vol] 1.6 mmol/L Normal 0.5-2.[address] [facility] Comment on above: Performed By: #### C JANIE RAMIREZ CP #### [facility] [address] [place] [address] Director Of Speech Pathology: Mauricio Irby MD Lipaseon 09-18-2023 Lipase [Catalytic activity/Vol] 67 U/L High 13 - 60 U/L [facility] Lipase [Catalytic activity/Vol] 67 U/L High 13-[address] [facility] Comment on above: Performed By: #### C DP, LIP, CP #### [facility] [address] [place] [address] Director Of Speech Pathology: Mauricio Irby MD No Panel Informationon 10-27 Interpretation and review of laboratory results Abnormal [facility] Urinalysis w/ Microon 2022 Bacteria 1+ Abnormal NONE [facility] Comment on above: Performed By: #### U AMIC #### [facility] [address] [place], [place] [id number] Director Of Speech Pathology: Mauricio Irby MD Bilirubin, SemiQt,Ur Negative Normal NEG [facility] Comment on above: Performed By: #### U AMIC #### [facility] [address] [place], [place] [id number] Director Of Speech Pathology: Mauricio Irby MD Blood, Urine Negative Normal NEG [facility] Comment on above: Performed By: #### U AMIC #### [facility] [address] [place], [place] [id number] Director Of Speech Pathology: Mauricio Irby MD Clarity (U) Clear Normal CLEAR [facility] Comment on above: Performed By: #### U AMIC #### [facility] [address] [place], [place] [id number] Director Of Speech Pathology: Mauricio Irby MD Color (U) Yellow Normal YEL [facility] Comment on above: Performed By: #### U AMIC #### [facility] [address] [place], [place] [id number] Director Of Speech Pathology: Mauricio Irby MD Epithelial cells LM Ql (Urine sed) 10 TO 20 Normal 0-[address] [facility] Comment on above: Performed By: #### U AMIC #### [facility] [address] [place], [place] [id number] Director Of Speech Pathology: Mauricio Irby MD Glucose Ql (U) Negative Normal NEG [facility] Comment on above: Performed By: #### U AMIC #### [facility] [address] [place] [address] Dr. [place], [place] [id number] Director Of Speech Pathology: Mauricio Irby MD Ketones Ql (U) Negative Normal NEG [facility] Comment on above: Performed By: #### U AMIC #### [facility] [address] [place] [address] Dr. [place], [place] [id number] Director Of Speech Pathology: Mauricio Irby MD Leukocyte esterase Test strip Ql (U) Negative Normal NEG [facility] Comment on above: Performed By: #### U AMIC #### [facility] [address] [place] [address] Dr. [place], [place] [id number] Director Of Speech Pathology: Mauricio Irby MD Nitrite,Ur Negative Normal NEG [facility] Comment on above: Performed By: #### U AMIC #### [facility] [address] [place] [address] [place] [address] Director Of Speech Pathology: Mauricio Irby MD PH,Ur 6.0 Normal 5.0-9.[address] [facility] Comment on above: Performed By: #### U AMIC #### [facility] [address] [place] [address] [place] [address] Director Of Speech Pathology: Mauricio Irby MD Protein Ql (U) Negative Normal NEG [facility] Comment on above: Performed By: #### U AMIC #### [facility] [address] [place] [address] Dr. [place], [place] [id number] Director Of Speech Pathology: Mauricio Irby MD Spec. [place],Ur 1.010 Normal 1.010-1.[address] [facility] Comment on above: Performed By: #### U AMIC #### [facility] [address] [place] [address] Dr. [place], [place] [id number] Director Of Speech Pathology: Mauricio Irby MD Urine RBC's 0 TO 2 Normal 0-[address] [facility] Comment on above: Performed By: #### U AMIC #### [facility] [address] [place], [place] [id number] Director Of Speech Pathology: Mauricio Irby MD Urine WBC's 0 TO 2 Normal 0-[address] [facility] Comment on above: Performed By: #### U AMIC #### [facility] [address] [place], [place] [id number] Director Of Speech Pathology: Mauricio Irby MD Urobilinogen,Ur Normal Normal 0.0-1.0 [facility] Comment on above: Performed By: #### U AMIC #### [facility] [address] [place] [address] [place], [place] [id number] Director Of Speech Pathology: Mauricio Irby MD Urinalysis with Microscopico n 10-27-2022 Bacteria LM Ql (Urine sed) 1+ Abnormal None [facility] Bilirubin Ql (U) Negative NEGATIVE [facility] Clarity (U) Clear Clear [facility] Color (U) Yellow Yellow [facility] Epithelial cells LM.HPF (Urine sed) [#/Area] 10 TO 20 [facility] Glucose Test strip (U) [Mass/Vol] Negative NEGATIVE mg/dL [facility] Hemoglobin Auto test strip Ql (U) Negative NEGATIVE [facility] Interpretation and review of laboratory results Abnormal [facility] Ketones (U) [Mass/Vol] Negative NEGATIVE mg/dL [facility] Leukocyte esterase Test strip Ql (U) Negative NEGATIVE [facility] Nitrite Ql (U) Negative NEGATIVE [facility] pH (U) 6.0 [pH] 5.0 - 9.0 [facility] Protein (U) [Mass/Vol] Negative NEGATIVE mg/dL [facility] RBC LM.HPF (Urine sed) [#/Area] 0 TO 2 [facility] Specific gravity (U) [Rel density] 1.010 1.010 - 1.020 [facility] Urobilinogen Qn (U) Normal 0.0 - 1.0 EU/dL [facility] WBC LM.HPF (Urine sed) [#/Area] 0 TO 2 [facility] XR ABD FLAT UP_PA Joyce 03-25 [...] MAURICIO LYONS Date: 2022-03-25 08:01 Normal [facility] AMYLASEon 03-24-2022 Amylase [Catalytic activity/Vol] 36 U/L Normal 25-115 [facility] Comment on above: Performed By: #### C MP, DARION, LIPA #### [facility] [address] [place] [address] Dr. Melecio Chadwick CBC AUTO DIFFon 03-24-2022 BASO # 0.0 103/ul Normal 0.0-0.1 [facility] Comment on above: Performed By: #### C BC #### [facility] [address] [place] [address] Dr. Melecio Chadwick Basophils/100 WBC (Bld) 0.2 % Normal 0.2-2.0 [facility] Comment on above: Performed By: #### C BC #### [facility] [address] [place] [address] Dr. Melecio Chadwick EO # 0.1 103/ul Normal 0.0-0.7 [facility] Comment on above: Performed By: #### C BC #### [facility] [address] [place] [address] Dr. Melecio Chadwick Eosinophils/100 WBC (Bld) 1.1 % Normal 0.9-7.0 [facility] Comment on above: Performed By: #### C BC #### [facility] [address] [place] [address] Dr. Melecio Chadwick Erythrocyte distribution width (RBC) [Ratio] 12.3 % Normal 11.0-15.0 [facility] Comment on above: Performed By: #### C BC #### [facility] [address] [place] [address] Dr. Melecio Chadwick Hematocrit (Bld) [Volume fraction] 42.5 % Normal 36.0-48.0 [facility] Comment on above: Performed By: #### C BC #### [facility] [address] [place] [address] Dr. Melecio Chadwick Hemoglobin (Bld) [Mass/Vol] 14.3 g/dL Normal 12.0-16.0 [facility] Comment on above: Performed By: #### C BC #### [facility] [address] [place] [address] Dr. Melecio Chadwick IG # 0.03 10e3/ul Normal 0.00-0.03 [facility] Comment on above: Performed By: #### C BC #### [facility] [address] [place] [address] Dr. Melecio Chadwick IG % 0.3 % Normal 0.0-0.5 [facility] Comment on above: Performed By: #### C BC #### [facility] [address] [place] [address] Dr. Melecio Chadwick LYMPH # 3.1 103/ul Normal 1.2-3.8 [facility] Comment on above: Performed By: #### C BC #### [facility] [address] [place] [address] Dr. Melecio Chadwick Lymphocytes/100 WBC (Bld) 29.8 % Normal 20.5-60.0 [facility] Comment on above: Performed By: #### C BC #### [facility] [address] [place] [address] Dr. Melecio Chadwick MANUAL DIFF REQ NO Normal [facility] Comment on above: Performed By: #### C BC #### [facility] [address] [address] [address] Melecio Chadwick MCH (RBC) [Entitic mass] 31.0 pg Normal 26.7-34.0 [facility] Comment on above: Performed By: #### C BC #### [facility] [address] [place] [address] Dr. Melecio Chadwick MCHC (RBC) [Mass/Vol] 33.6 g/dL Normal 29.9-35.2 [facility] Comment on above: Performed By: #### C BC #### [facility] [address] [place] [address] Dr. Melecio Chadwick MCV (RBC) [Entitic vol] 92.2 fL Normal 81.0-99.0 [facility] Comment on above: Performed By: #### C BC #### [facility] [address] [place] [address] Dr. Melecio Chadwick MONO # 0.6 103/ul Normal 0.3-0.8 [facility] Comment on above: Performed By: #### C BC #### [facility] [address] [place] [address] Dr. Melecio Chadwick Monocytes/100 WBC (Bld) 5.8 % Normal 1.7-12.0 [facility] Comment on above: Performed By: #### C BC #### [facility] [address] [place] [address] Dr. Melecio Chadwick NEUT # 6.5 103/ul Normal 1.4-6.5 [facility] Comment on above: Performed By: #### C BC #### [facility] [address] [place] [address] Dr. Melecio Chadwick Neutrophils/100 WBC (Bld) 62.8 % Normal 43.0-75.0 [facility] Comment on above: Performed By: #### C BC #### [facility] [address] [place] [address] Dr. Melecio Chadwick Platelet mean volume (Bld) [Entitic vol] 9.0 fL Critically low 9.5-13.5 [facility] Comment on above: Performed By: #### C BC #### [facility] [address] [place] [address] Dr. Melecio Chadwick PLT 268 103/ul Normal 150-450 [facility] Comment on above: Performed By: #### C BC #### [facility] [address] [place] [address] Dr. Melecio Chadwick RBC 4.61 106/ul Normal 4.20-5.40 [facility] Comment on above: Performed By: #### C BC #### [facility] [address] [place] [address] Dr. Melecio Chadwick WBC 10.4 103/ul Normal 4.0-11.0 [facility] Comment on above: Performed By: #### C BC #### [facility] [address] [place] [address] Dr. Melecio Chadwick LIPASEon 03-24-2022 Lipase [Catalytic activity/Vol] 114.0 U/L Normal 73.0-393.0 [facility] Comment on above: Performed By: #### C MP DARION, LIPA #### [facility] [address] [place] [address] Dr. Melecio Chadwick PROF 14(COMP METB)on 023 Albumin [Mass/Vol] 3.5 g/dL Normal 3.4-5.0 [facility] Comment on above: Performed By: #### C MP, DARION, LIPA #### [facility] [address] [place] [address] Dr. Melecio Chadwick Albumin/Globulin [Mass ratio] 0.8 {ratio} Normal [facility] Comment on above: Performed By: #### C MP, DARION, LIPA #### [facility] [address] [place] [address] Dr. Melecio Chadwick ALP [Catalytic activity/Vol] 85 U/L Normal 46-116 [facility] Comment on above: Performed By: #### C MP, DARION, LIPA #### [facility] [address] [place] [address] Dr. Melecio Chadwick ALT [Catalytic activity/Vol] 21 U/L Normal 14-59 [facility] Comment on above: Performed By: #### C MP, DARION, LIPA #### [facility] [address] [place] [address] Dr. Melecio Chadwick Anion gap [Moles/Vol] 11.6 mmol/L Normal [facility] Comment on above: Performed By: #### C MP, DARION, LIPA #### [facility] [address] [place] [address] Dr. Melecio Chadwick AST [Catalytic activity/Vol] 15 U/L Normal 15-37 [facility] Comment on above: Performed By: #### C MP, DARION, LIPA #### [facility] [address] [place] [address] Dr. Melecio Chadwick Bilirubin [Mass/Vol] 0.3 mg/dL Normal 0.2-1.0 [facility] Comment on above: Performed By: #### C MP, DARION, LIPA #### [facility] [address] [place] [address] Dr. Melecio Chadwick Calcium [Mass/Vol] 8.8 mg/dL Normal 8.5-10.1 [facility] Comment on above: Performed By: #### C MP, DARION, LIPA #### [facility] [address] [place] [address] Dr. Melecio Chadwick Chloride [Moles/Vol] 102 mmol/L Normal 98-107 [facility] Comment on above: Performed By: #### C MP, DARION, LIPA #### [facility] [address] [place] [address] Dr. Melecio Chadwick CO2 [Moles/Vol] 28.5 mmol/L Normal 21.0-32.0 [facility] Comment on above: Performed By: #### C MP, DARION, LIPA #### [facility] [address] [place] [address] Dr. Melecio Chadwick Creatinine [Mass/Vol] 0.76 mg/dL Normal 0.55-1.02 [facility] Comment on above: Performed By: #### C MP, DARION, LIPA #### [facility] [address] [place] [address] Dr. Melecio Chadwick EGFR-AF SRI LANKAN >60 Normal >=60 [facility] Comment on above: Performed By: #### C DARION LOGAN, LIPA #### [facility] [address] [place] [address] Dr. Melecio Chadwick EGFR-NON AF SRI LANKAN >60 Normal >=60 [facility] Comment on above: Performed By: #### C MP, DARION, LIPA #### [facility] [address] [place] [address] Dr. Melecio Chadwick Globulin (S) [Mass/Vol] 4.2 g/dL Normal [facility] Comment on above: Performed By: #### C DARION LOGAN, LIPA #### [facility] [address] [place] [address] Dr. Melecio Chadwick Glucose [Mass/Vol] 97 mg/dL Normal 74-106 [facility] Comment on above: Performed By: #### C DOREEN DARION, LIPA #### [facility] [address] [place] [address] Dr. Melecio Chadwick Potassium [Moles/Vol] 4.1 mmol/L Normal 3.5-5.1 [facility] Comment on above: Performed By: #### C DARION LOGAN, LIPA #### [facility] [address] [place] [address] Dr. Melecio Chadwick Protein [Mass/Vol] 7.7 g/dL Normal 6.4-8.2 [facility] Comment on above: Performed By: #### C DOREEN DARION, LIPA #### [facility] [address] [place] [address] Dr. Melecio Chadwick Sodium [Moles/Vol] 138 mmol/L Normal 136-145 [facility] Comment on above: Performed By: #### C DOREEN DARION, LIPA #### [facility] [address] [place] [address] Dr. Melecio Chadwick Urea nitrogen [Mass/Vol] 9.0 mg/dL Normal 7.0-18.0 [facility] Comment on above: Performed By: #### C DOREEN DARION, LIPA #### [facility] [address] [place] [address] Dr. Melecio Chadwick Urea nitrogen/Creatini ne [Mass ratio] 11.8 mg/mg Normal [facility] Comment on above: Performed By: #### C MP, DARION, LIPA #### [facility] [address] [place] [address] Dr. Melecio Chadwick AMYLASEon 03-19-2022 Amylase [Catalytic activity/Vol] 44 U/L Normal 25-115 [facility] Comment on above: Performed By: #### A MY, CMP, LIPA #### [facility] [address] [place] [address] Dr. Melecio Chadwick CBC AUTO DIFFon 03-19-2022 BASO # 0.0 103/ul Normal 0.0-0.1 [facility] Comment on above: Performed By: #### C BC #### [facility] [address] [place] [address] Dr. Melecio Chadwick Basophils/100 WBC (Bld) 0.2 % Normal 0.2-2.0 [facility] Comment on above: Performed By: #### C BC #### [facility] [address] [place] [address] Dr. Melecio Chadwick EO # 0.1 103/ul Normal 0.0-0.7 [facility] Comment on above: Performed By: #### C BC #### [facility] [address] [place] [address] Dr. Melecio Chadwick Eosinophils/100 WBC (Bld) 1.5 % Normal 0.9-7.0 [facility] Comment on above: Performed By: #### C BC #### [facility] [address] [place] [address] Dr. Melecio Chadwick Erythrocyte distribution width (RBC) [Ratio] 12.4 % Normal 11.0-15.0 [facility] Comment on above: Performed By: #### C BC #### [facility] [address] [place] [address] Dr. Melecio Chadwick Hematocrit (Bld) [Volume fraction] 41.8 % Normal 36.0-48.0 [facility] [facility] Comment on above: Performed By: #### C BC #### [facility] [address] [place] [address] Dr. Melecio Chadwick Hemoglobin (Bld) [Mass/Vol] 13.2 g/dL Normal 12.0-16.0 [facility] Comment on above: Performed By: #### C BC #### [facility] [address] [place] [address] Dr. Melecio Chadwick IG # 0.02 10e3/ul Normal 0.00-0.03 [facility] Comment on above: Performed By: #### C BC #### [facility] [address] [place] [address] Dr. Melecio Chadwick IG % 0.2 % Normal 0.0-0.5 [facility] Comment on above: Performed By: #### C BC #### [facility] [address] [place] [address] Dr. Melecio Chadwick LYMPH # 3.3 103/ul Normal 1.2-3.8 [facility] Comment on above: Performed By: #### C BC #### [facility] [address] [place] [address] Dr. Melecio Chadwick Lymphocytes/100 WBC (Bld) 38.0 % Normal 20.5-60.0 [facility] Comment on above: Performed By: #### C BC #### [facility] [address] [place] [address] Dr. Melecio Chadwick MANUAL DIFF REQ NO Normal [facility] Comment on above: Performed By: #### C BC #### [facility] [address] [place] [address] Dr. Melecio Chadwick MCH (RBC) [Entitic mass] 30.9 pg Normal 26.7-34.0 [facility] Comment on above: Performed By: #### C BC #### [facility] [address] [place] [address] Dr. Melecio Chadwick MCHC (RBC) [Mass/Vol] 31.6 g/dL Normal 29.9-35.2 [facility] Comment on above: Performed By: #### C BC #### [facility] [id number] Melecio Chdawick MCV (RBC) [Entitic vol] 97.9 fL Normal 81.0-99.0 [facility] Comment on above: Performed By: #### C BC #### [facility] [address] [place] [address] Dr. Melecio Chadwick MONO # 0.4 103/ul Normal 0.3-0.8 [facility] Comment on above: Performed By: #### C BC #### [facility] [address] [place] [address] Dr. Melecio Chadwick Monocytes/100 WBC (Bld) 4.6 % Normal 1.7-12.0 [facility] Comment on above: Performed By: #### C BC #### [facility] [address] [place] [address] Dr. Melecio Chadwick NEUT # 4.8 103/ul Normal 1.4-6.5 [facility] Comment on above: Performed By: #### C BC #### [facility] [address] [place] [address] Dr. Melecio Chadwick Neutrophils/100 WBC (Bld) 55.5 % Normal 43.0-75.0 [facility] Comment on above: Performed By: #### C BC #### [facility] [address] [place] [address] Dr. Melecio Chadwick Platelet mean volume (Bld) [Entitic vol] 9.7 fL Normal 9.5-13.5 [facility] Comment on above: Performed By: #### C BC #### [facility] [address] [place] [address] Dr. Melecio Chadwick PLT 258 103/ul Normal 150-450 [facility] Comment on above: Performed By: #### C BC #### [facility] [address] [place] [address] Dr. Melecio Chadwick RBC 4.27 106/ul Normal 4.20-5.40 [facility] Comment on above: Performed By: #### C BC #### [facility] [address] [place] [address] Dr. Melecio Chadwick WBC 8.7 103/ul Normal 4.0-11.0 [facility] Comment on above: Performed By: #### C BC #### [facility] [address] [place] [address] Dr. Melecio Chadwick LIPASEon 03-19-2022 Lipase [Catalytic activity/Vol] 119.0 U/L Normal 73.0-393.0 [facility] Comment on above: Performed By: #### A MY, CMP, LIPA #### [facility] [address] [place] [address] Dr. Melecio Chadwick PROF 14(COMP METB)on 023 Albumin [Mass/Vol] 3.2 g/dL Critically low 3.4-5.0 [facility] Comment on above: Performed By: #### A MY, CMP, LIPA #### [facility] [address] [place] [address] Dr. Melecio Chadwick Albumin/Globulin [Mass ratio] 0.9 {ratio} Normal [facility] Comment on above: Performed By: #### A MY, CMP, LIPA #### [facility] [address] [place] [address] Dr. Melecio Chadwick ALP [Catalytic activity/Vol] 76 U/L Normal 46-116 [facility] Comment on above: Performed By: #### A MY, CMP, LIPA #### [facility] [address] [place] [address] Dr. Melecio Chadwick ALT [Catalytic activity/Vol] 18 U/L Normal 14-59 [facility] Comment on above: Performed By: #### A MY, CMP, LIPA #### [facility] [address] [place] [address] Dr. Melecio Chadwick Anion gap [Moles/Vol] 11.6 mmol/L Normal [facility] Comment on above: Performed By: #### A MY, CMP, LIPA #### [facility] [address] [place] [address] Dr. Melecio Chadwick AST [Catalytic activity/Vol] 14 U/L Critically low 15-37 [facility] Comment on above: Performed By: #### A MY, CMP, LIPA #### [facility] [address] [place] [address] Dr. Melecio Chadwick Bilirubin [Mass/Vol] 0.2 mg/dL Normal 0.2-1.0 [facility] Comment on above: Performed By: #### A MY, CMP, LIPA #### [facility] [address] [place] [address] Dr. Melecoi Chadwick Calcium [Mass/Vol] 7.9 mg/dL Critically low 8.5-10.1 [facility] Comment on above: Performed By: #### A MY, CMP, LIPA #### [facility] [address] [place] [address] Dr. Melecio Chadwick Chloride [Moles/Vol] 105 mmol/L Normal 98-107 [facility] Comment on above: Performed By: #### A MY, CMP, LIPA #### [facility] [address] [place] [address] Dr. Melecio Chadwick CO2 [Moles/Vol] 25.8 mmol/L Normal 21.0-32.0 [facility] Comment on above: Performed By: #### A MY, CMP, LIPA #### [facility] [address] [place] [address] Dr. Melecio Chadwick Creatinine [Mass/Vol] 0.67 mg/dL Normal 0.55-1.02 [facility] Comment on above: Performed By: #### A MY, CMP, LIPA #### [facility] [address] [place] [address] Dr. Melecio Chadwick EGFR-AF SRI LANKAN >60 Normal >=60 [facility] Comment on above: Performed By: #### A MY, CMP, LIPA #### [facility] [address] [place] [address] Dr. Melecio Chadwick EGFR-NON AF SRI LANKAN >60 Normal >=60 [facility] Comment on above: Performed By: #### A MY, CMP, LIPA #### [facility] [address] [place] [address] Dr. Melecio Chadwick Globulin (S) [Mass/Vol] 3.6 g/dL Normal [facility] Comment on above: Performed By: #### A MY, CMP, LIPA #### [facility] [address] [place] [address] Dr. Melecio Chadwick Glucose [Mass/Vol] 95 mg/dL Normal 74-106 [facility] Comment on above: Performed By: #### A MY, CMP, LIPA #### [facility] [address] [place] [address] Dr. Melecio Chadwick Potassium [Moles/Vol] 3.4 mmol/L Critically low 3.5-5.1 [facility] Comment on above: Performed By: #### A MY CMP, LIPA #### [facility] [address] [place] [address] Dr. Melecio Chadwick Protein [Mass/Vol] 6.8 g/dL Normal 6.4-8.2 [facility] Comment on above: Performed By: #### A MY CMP, LIPA #### [facility] [address] [place] [address] Dr. Melecio Chadwick Sodium [Moles/Vol] 139 mmol/L Normal 136-145 [facility] Comment on above: Performed By: #### A MY CMP, LIPA #### [facility] [address] [place] [address] Dr. Melecio Chadwick Urea nitrogen [Mass/Vol] 6.0 mg/dL Critically low 7.0-18.0 [facility] Comment on above: Performed By: #### A MY, CMP, LIPA #### [facility] [address] [place] [address] Dr. Melecio Chadwick Urea nitrogen/Creatini ne [Mass ratio] 9.0 mg/mg Normal [facility] Comment on above: Performed By: #### A MY CMP, LIPA #### [facility] [address] [place] [address] Dr. Melecio Chadwick Intraoperative Noteon 2017 Intraoperative Note [id number]#1.00OTGTIFF Normal [facility] Intraoperative Noteon 2017 Intraoperative Note [id number]#1.00[facility] History and Physicalon 01-23 History and Physical [id number]#1.00[facility] Provider Orderson 01-23-2017 Protein [id number]#1.00[facility] Coding Summaryon 12-08-2016 Coding Summary CODING DATE: 017 [facility] STATUS: Home PAYOR: [employer] Insurance APC DESCRIPTION 5113 Level 3 Musculoskeletal Procedures ADMIT DX: REASON FOR VISIT DX: S83.242A Other tear of medial meniscus, current injury, left knee, initial encounter FINAL DX: PRINCIPAL: M22.42 Chondromalacia patellae, left knee SECONDARY: M94.9 Disorder of cartilage, unspecified PYMT PROC APC STAT DESCRIPTION DOCTOR NAME DATE 19095 5113 J1 Arthroscopy, knee, ARIES HARO 12/05/2016 [...] Tamanna Ambrocio Date Saved: 12/08/2016 03:51 pm [facility] Consent Formson 12-08-2016 Consent Forms [id number]#1.00[facility] Discharge Instructionson Discharge Instructions [id number]#[address] [place] [address] Intraoperative Noteon 2016 Intraoperative Note [id number]#1.00[facility] MAGR PACU Recordon 7 MAGR PACU Record MAGR PACU Record [facility] Primary Physician: ARIES HARO Finalized Date/Time: 12/08/16 10:49:55 Pt. Name: TAMY WALLS/Sex: 1980 FEMALE Med Rec #: [id number] Physician: ARIES HARO Financial #: [id number] Pt. Type: D Room/Bed: / Admit/Disch: 12/05/16 [...] Signed By: Sana Jarvis RN 12/08/16 10:49 [facility] Preoperative Recordon 1 [facility] Preoperative Record [facility] Pre-Op Record Summary Primary Physician: ARIES HARO Finalized Date/Time: 12/08/16 10:20:04 Pt. Name: TAMY WALLS/Sex: 1980 FEMALE Med Rec #: [id number] Physician: ARIES HARO Financial #: [id number] Pt. Type: D Room/Bed: / Admit/Disch: 12/05/16 [...] Signed By: Marium Ledbetter RN 12/08/16 10:20 [facility] Medication Managementon 11-11 Medication Management [id number] [facility] Telemetry Stripson 7 Telemetry Strips [id number]#1.00OTGTIFF [facility] Anesthesia Noteon 12-05-2016 Anesthesia Note Patient: RUFUS WALLS : 36 years Sex: FEMALE : [birth year]Associated Diagnoses: NoneAuthor: Bunny Briggs MDPostoperative InformationPost Operative Note: Operative Day.Anesthetic utilized: General.Health StatusAllergies:Allergic Reactions (All)Severity Not DocumentedDilaudid- Angio-oedema.Percocet 5/325- Nausea & vomiting.Problem list (past medical history):All ProblemsAnxiety / SNOMED CT 45091760 / ConfirmedPhysical ExaminationVS/MeasurementsV ital Signs (last 24 [...] on: 12/05/2016 12:07 EDT] Bunny Briggs MD [facility] Anesthesia Note Patient: RUFUS WALLS [...] (past medical history):All ProblemsAnxiety / SNOMED CT 50977142 / ConfirmedHistoriesFamily History:No family history items have been selected or recorded.Procedure history:Hysterectomy (278060021) in 2014 at 33 Years.Comments:11/28/2016 10:07 - Shayy Sylvester RNpartialAppendectomy (610378176) in 2013 at 32 Years.Tubal ligation (620991659) in 2004 at 24 Years.Cholecystectomy (04622406) in 2000 at 19 Years.Ear care (317616241).Comments:2016 10:06 - Shayy Sylvester RNtubes v2Qryvfs History Alcohol Assessment Use: Never. Tobacco Assessment former smoker quit 2 yrs ago Tobacco Use:. Substance Abuse Assessment Substance use: Never..Social & Psychosocial WjsdpxBjaiyyc61/20/2017 Alcohol Use: NeverSubstance Abuse11/28/2016 Substance use: VkaamGchfagt28/20/2017 Smoking tobacco use: former smoker quit 2 [...] on: 12/05/2016 10:25 EDT] Bunny Briggs MD [facility] MAGR Intraoperative Recordon 12-05-2016 MAGR Intraoperative Record MAGR Intra-Op Record Summary Primary Physician: ARIES HARO Finalized Date/Time: 12/05/16 11:52:54 Pt. Name: TAMY WALLS Cliff JaimeB./Sex: 1980 FEMALE Med Rec #: [id number] Physician: ARIES HARO Financial #: [id number] Pt. Type: D Room/Bed: / Admit/Disch: 12/05/16 [...] Role Performed Surgeon - Primary Anesthesiologist of Sample Cutter Record Time In 12/05/16 10:37:00 12/05/16 10:37:00 12/05/16 10:37:00 Time Out 12/05/16 11:30:00 12/05/16 11:48:00 12/05/16 11:48:00 Procedure Arthroscopy Knee(Left) Arthroscopy Knee(Left) Arthroscopy Knee(Left) Last Modified By: Leslie Tolentino RN, Stephanie RN Sauer, Stephanie RN 12/05/16 11:52:02 12/05/16 11:52:02 12/05/16 11:52:02 Entry 4 Entry 5 Entry 6 Case Attendee Ro Morrison RN, Leigh-Ann CST Nikolaus, Linda M Role Performed Sample Cutter Burial Agent Scrub Personnel Time In 12/05/16 10:37:00 12/05/16 [...] Signed By: Leslie Tolentino RN 12/05/16 11:52 [facility] MAGR Postoperative Recordon 12-05-2016 MAGR Postoperative Record MAGR Phase II Record Summary Primary Physician: ARIES HARO Finalized Date/Time: 12/05/16 14:50:11 Pt. Name: TAMY WALLS /Sex: 1980 FEMALE Med Rec #: [id number] Physician: ARIES HARO Financial #: [id number] Pt. Type: D Room/Bed: / Admit/Disch: 12/05/16 [...] 1320.....care assumed from Og Jarvis RN...report received 0792 - discharge instructions reviewed with patient, daughter, and grandmother. All verbalize understanding. Copy of instructions sent home with patient along with prescription for percocet......discharged per wheelchair to private auto driven by daughter for home Finalized By: Sana Jarvis RN Document Signatures Signed By: Sana Jarvis RN 12/05/16 14:50 [facility] Progress Note - Nurseon 10-2 Progress Note - Nurse Spoke with pt and informed her to be here at 9am and NPO after MN, she verbalizes understanding.[Electronical ly Signed on: 12/04/2016 09:42 EDT] Shayy Sylvester RN[Verified on: 12/04/2016 09:42 EDT] Shayy Sylvester RN [facility] Vital Signs Date Time Vital Sign Value Performing Clinician Faci lity 10-27-2022 20:03-0400 Diastolic blood pressure 76 mm[Hg] Anna Callahan MD Work Phone: [facility] 10-27-2022 20:03-0400 SaO2% (BldA) [Mass fraction] 98 % Anna Callahan MD Work Phone: [facility] 10-27-2022 20:03-0400 Systolic blood pressure 126 mm[Hg] Anna Callahan MD Work Phone: [facility] 10-27-2022 15:17-0400 Body weight 104.33 kg Anna Callahan MD Work Phone: [facility] 10-27-2022 15:15-0400 Body temperature 97.9 [degF] Anna Callahan MD Work Phone: [facility] 10-27-2022 15:15-0400 Heart rate 100 /min Anna Callahan MD Work Phone: [facility] 10-27-2022 15:15-0400 Respiratory rate 18 /min Anna Callahna MD Work Phone: [facility] Encounters Encounter Date Encounter Type Care Provider Facility Start: 10-27-2022 End: 10-27-2022 Emergency department patient visit Anna Callahan MD Work Phone: [facility] ED Comment on above: Left flank pain (Berenice oreilly Dx) Start: 04-21-2022 End: 04-22-[address] FRANCIA RODRIGUEZ . Facility:[facility] Start: 03-24-2022 End: 03-25-[address] FRANCIA RODRIGUEZ . Facility:[facility] Start: 03-19-2022 End: 03-19-[address] FRANCIA RODRIGUEZ . Facility: Start: 12-05-2016 End: 12-05-2016 Patient encounter [facility] Facility:[facility] Start: 11-29-2016 End: 11-29-2016 Patient encounter [facility] Facility:[facility] Procedures Date Procedure Procedure Detail Performing Clinician Start: 10-27-2022 Ct abdomen & pelvis w/contrast material Tyler Galarza PA-C Work Phone: Start: 10-27-2022 Urnls dip stick/tabl et reagent auto microscopy Anna Callahan MD Work Phone: Start: 10-27-2022 Comprehensive metabo lic panel Anna Callahan MD Work Phone: Plan of Treatment Date Care Activity Detail Author Start: 09-09-2022 Influenza vaccination Flu vaccine (# 1) [facility] Start: 2021 Lipid panel Lipids [facility] Start: 05-01-2011 Screening for malign ant neoplasm of cervix [facility] Start: 2002 Screening for malign ant neoplasm of cervix Pap smear [facility] Start: 2000 DTaP/Tdap/Td vaccine (1 - Tdap) DTaP/Tdap/Td vaccine (1 - Tdap) [facility] Start: 05-01-1999 Hepatitis C screening Hepatitis C sc reen [facility] Start: 1996 HIV screening HIV screen [facility] Start: 1993 Depression Screen Depression Screen [facility] Start: 1982 Varicella vaccine (1 of 2 - 2-dose childhood series) Varicella vaccine (1 of 2 - 2-dose childhood series) [facility] Start: 1981 COVID-19 Vaccine (#1) COVID-19 Vacci ne (#1) [facility] Start: 1981 Hepatitis B vaccine (1 of 3 - 3-dose series) Hepatitis B vaccine (1 of 3 - 3-dose series) [facility] End: 10-27-2022 Culture, Urine [facility] Work Phone: Comment on above: One Time for 1 Occur rences starting 10/27/2022 until 10/27/2022 Payers Date Payer Category Payer Unknown [id number] 1980 Unknown [id number] [id number] 1980 Unknown [id number] [id number] [id number] 1980 Unknown [id number] [id number] [id number] 1980 Unknown [id number] [id number] 1958 Unknown [id number] Social History Date Type Detail Facility Tobacco smoking stat [facility] Tobacco smoking consumption unknown [facility] Start: 1980 Sex Assigned At Not on file [facility] Gender identity Not on file [facility] Hospital Discharge instructions 10-27-2022 Discharge InstructionsAttachments Note [...] cannot be sent through Care Everywhere.Flank Pain (Barbadian)documented in this encounter [facility] Evaluation note Note Date & Type Note Facility Evaluation note Diagnosis Left flank pain- Primary Abdominal pain, unspecified site documented in this encounter [facility] Summary Purpose Family History No Family History Records FoundNo Family History Records FoundNo Family History Records Found Advance Directives No Advanced Directives Records FoundNo Advanced Directives Records FoundNo Advanced Directives Records Found Additional Source Comments INFORMATION SOURCE (unrecogn ized section and content) DATE CREATED AUTHOR 08/22/2017 [facility] DATE CREATED AUTHOR AUTHOR'S ORGANIZ ATION 04/28/2022 [facility] DATE CREATED AUTHOR AUTHOR'S ORGANIZ ATION 08/06/2023 [facility] Reason for Visit (unrecogniz ed [...] BE BASED ON THE PRIMARY CLINICAL RECORDS. [employer] [facility]. provides no warranty or guarantee of the accuracy or completeness of information in this document.
--- NOTE | 2023-11-20 08:42 | MR_ITS ---
The [address] [address] Patient Name: TAMY CHAPIN MRN: [id number] date: 1980 Sex: F Assigned Patient Location: MRI Current Patient Location: Accession/Order Number: [id number] Exam Date: 11/20/2023 08:50 Report Date: 11/24/2023 06:26 At the request of: FRANCIA RODRIGUEZ Procedure: MR ankle LT wo con HISTORY: Pain and swelling along the lateral aspect of the left ankle since an injury 3 weeks ago. MR ankle LT wo con: 11/20/2023 8:50 AM EDT COMPARISON: Radiographs left ankle 11/02/2023. TECHNIQUE: Multiplanar, multisequence MRI images of the ankle were obtained without contrast. FINDINGS: Several images are slightly degraded by motion artifact. LIGAMENTS: The anterior talofibular ligament appears within normal limits. The calcaneofibular ligament, posterior talofibular ligament, and distal tibiofibular ligaments appear within normal limits. The deltoid ligament complex appears within normal limits. TENDONS: No significant tendinopathy, tendon tear, or tenosynovitis is seen. SINUS TARSI AND TARSAL TUNNEL: No space-occupying mass is seen in the tarsal tunnel or the sinus tarsi. BONES AND JOINTS: The bone marrow signal intensity is age appropriate. No unstable osteochondral defect of the tibiotalar joint is identified. No bone marrow edema-like signal is seen. PLANTAR FASCIA: There is no abnormal thickening or abnormal signal intensity of the plantar fascia and there is no surrounding soft tissue edema to suggest plantar fasciitis. SOFT TISSUES: There is a small amount of subcutaneous edema along the medial and lateral aspect of the ankle. MR/MR ankle LT wo con IMPRESSION: 1. No ligament injury, tendon abnormality, or osteochondral defect of the ankle is seen. 2. There is a small amount of nonspecific subcutaneous edema along the medial and lateral aspect of the ankle. Electronically authenticated by: FRANCIA BANKS Date: 11/24/2023 06:26
== END 2023-11-20 08:37 | disposition home or self-care (01) ==
LOC: MRI 08:36
PROVIDERS: PCP Family Medicine; Visit Provider Family Medicine
DX: M25.572 Pain in left ankle and joints of left foot (principal)
CPT/HCPCS: 73721

== ENCOUNTER 2023-11-24 12:08 | Outpatient (OUT) | payer OTHER, SELFPAY ==
--- OUTSIDE RECORDS SUMMARY | 2023-11-24 12:13 | XMS_ITS | CCD ---
Author Organization [facility] Care Team Providers Care Card Game Operator Name Role Phone STEPANIC, ARIES C Unavailable [...] Unavailable HOY ., DR FELDMAN Consulting Unavailable BROCKTON, DR MAURICIO Fraser Consulting Unavailable Unavailable Primary Care Provider ANNA Crain Attending Unavailable Allergies Allergy Classification Reported Allergen(s) Allergy Type Date of Onset Reaction(s) Facility (1 source) acetaminophen / oxyCODONE; Translations: [Percocet 5/325] Drug Allergy [facility] Repository (2 sources) HYDROmorphone; Translations: [Dilaudid] Drug Allergy [facility] Repository (1 source) egg extract Drug Allergy 02-09-[address] [facility] Repository (1 source) HYDROmorphone Drug Allergy 10-27-2022 [facility] Medications Current Medications Medication Drug Class(es) [...] Diffon 08-05-2023 Abs. Basophil <0.03 Normal 0.00-0.20 [facility] Comment on above: Performed By: #### T , CDP #### [facility] [address] [place], [place] [id number] University Archivist: Mauricio Irby MD #### LIPR, FT3, INSU, T4, FE, GLYHGB #### [address] [phone] University Archivist: Casa Medrano MD Abs.Imm.Granulocy te 0.05 k/uL Normal 0.00-0.30 [facility] Comment on above: Performed By: #### T SH, CDP #### [address] [place] [id number] University Archivist: Mauricio Irby MD #### LIPR, FT3, INSU, T4, FE, GLYHGB #### [place] [address] University Archivist: Casa Medrano MD Abs.Neutrophil (Seg) 7.71 k/uL Normal 1.50-8.10 [facility] Comment on above: Performed By: #### T SH, CDP #### [address] [place] [id number] University Archivist: Mauricio Irby MD #### LIPR, FT3, INSU, T4, FE, GLYHGB #### [place] [id number] University Archivist: Casa Medrano MD Basophils/100 WBC (Bld) 0 % Normal 0-2 [facility] Comment on above: Performed By: #### T SH, CDP #### [address] [place] [id number] University Archivist: Mauricio Irby MD #### LIPR, FT3, INSU, T4, FE, GLYHGB #### [address] [phone] University Archivist: Casa Medrano MD Eosinophils (Bld) [#/Vol] 0.10 10*3/uL Normal 0.00-0.44 [facility] Comment on above: Performed By: #### T SH, CDP #### [address] [place] [address] University Archivist: Mauricio Irby MD #### LIPR, FT3, INSU, T4, FE, GLYHGB #### [address] [id number] University Archivist: Casa Medrano MD Eosinophils/100 WBC (Bld) 1 % Normal 1-4 [facility] Comment on above: Performed By: #### T SH, CDP #### [address] [place] [address] University Archivist: Mauricio Irby MD #### LIPR, FT3, INSU, T4, FE, GLYHGB #### [address] [phone] University Archivist: Casa Medrano MD Erythrocyte distribution width (RBC) [Ratio] 12.5 % Normal 11.8-14.4 [facility] Comment on above: Performed By: #### T SH, CDP #### [address] [place] [address] University Archivist: Mauricio Irby MD #### LIPR, FT3, INSU, T4, FE, GLYHGB #### [address] [phone] University Archivist: Casa Medrano MD Hematocrit (Bld) [Volume fraction] 45.1 % Normal 36.3-47.1 [facility] Comment on above: Performed By: #### T SH, CDP #### [address] [place] [address] University Archivist: Mauricio Irby MD #### LIPR, FT3, INSU, T4, FE, GLYHGB #### [address] [phone] University Archivist: Casa Medrano MD Hemoglobin (Bld) [Mass/Vol] 15.2 g/dL High 11.9-15.1 [facility] Comment on above: Performed By: #### T SH, CDP #### [facility] [address] [place] [address] [place] [phone] University Archivist: Mauricio Irby MD #### LIPR, FT3, INSU, T4, FE, GLYHGB #### [address] [address] University Archivist: Casa Medrano MD Immature granulocytes/100 WBC (Bld) 1 % High 0 [facility] Comment on above: Performed By: #### T SH, CDP #### [address] [place] [id number] University Archivist: Mauricio Irby MD #### LIPR, FT3, INSU, T4, FE, GLYHGB #### [place] [address] University Archivist: Casa Medrano MD Lymphocytes (Bld) [#/Vol] 2.55 10*3/uL Normal 1.10-3.70 [facility] Comment on above: Performed By: #### T SH, CDP #### [facility] [address] [place] [address] Dr. [place] [phone] University Archivist: Mauricio Irby MD #### LIPR, FT3, INSU, T4, FE, GLYHGB #### [address] [phone] University Archivist: Casa Medrano MD Lymphocytes/100 WBC (Bld) 23 % Low 24-43 [facility] Comment on above: Performed By: #### T SH, CDP #### [facility] [address] [place] [address] Dr[place] [phone] University Archivist: Mauricio Irby MD #### LIPR, FT3, INSU, T4, FE, GLYHGB #### [place] [id number] [place], [place] [phone] University Archivist: Casa Medrano MD MCH (RBC) [Entitic mass] 31.6 pg Normal 25.2-33.5 [facility] Comment on above: Performed By: #### T SH, CDP #### [address] [place] [phone] University Archivist: Mauricio Irby MD #### LIPR, FT3, INSU, T4, FE, GLYHGB #### [address] [phone] University Archivist: Casa Medrano MD MCHC (RBC) [Mass/Vol] 33.7 g/dL Normal 28.4-34.8 [facility] Comment on above: Performed By: #### T SH, CDP #### [address] [place] [phone] University Archivist: Mauricio Irby MD #### LIPR, FT3, INSU, T4, FE, GLYHGB #### [place] [address] University Archivist: Casa Medrano MD MCV (RBC) [Entitic vol] 93.8 fL Normal 82.6-102.9 [facility] Comment on above: Performed By: #### T SH, CDP #### [address] [place] [phone] University Archivist: Mauricio Irby MD #### LIPR, FT3, INSU, T4, FE, GLYHGB #### [place] [phone] University Archivist: Casa Medrano MD Monocytes (Bld) [#/Vol] 0.60 10*3/uL Normal 0.10-1.20 [facility] Comment on above: Performed By: #### T SH, CDP #### [facility] [address] [place], [place] [phone] University Archivist: Mauricio Irby MD #### LIPR, FT3, INSU, T4, FE, GLYHGB #### [address] [phone] University Archivist: Casa Medrano MD Monocytes/100 WBC (Bld) 5 % Normal 3-12 [facility] Comment on above: Performed By: #### T SH, CDP #### [facility] [address] [place] [address] University Archivist: Mauricio Irby MD #### LIPR, FT3, INSU, T4, FE, GLYHGB #### [address] [phone] University Archivist: Casa Medrano MD Neutrophil (Seg) 70 % High 36-65 [facility] Comment on above: Performed By: #### T SH, CDP #### [facility] [address] [place] [address] [place] [address] University Archivist: Mauricio Irby MD #### LIPR, FT3, INSU, T4, FE, GLYHGB #### [address] [address] University Archivist: Casa Medrano MD NRBC Automated 0.0 per 100 WBC Normal 0.0 [facility] Comment on above: Performed By: #### T SH, CDP #### [facility] [address] [place] [address] University Archivist: Mauricio Irby MD #### LIPR, FT3, INSU, T4, FE, GLYHGB #### [address] [id number] University Archivist: Casa Medrano MD Platelet mean volume (Bld) [Entitic vol] 9.2 fL Normal 8.1-13.5 [facility] Comment on above: Performed By: #### T SH, CDP #### [address] [place], [place] [phone] University Archivist: Mauricio Irby MD #### LIPR, FT3, INSU, T4, FE, GLYHGB #### [place] [address]24[address] [place] [address] University Archivist: Casa Medrano MD Platelets (Bld) [#/Vol] 297 10*3/uL Normal 138-453 [facility] Comment on above: Performed By: #### T SH, CDP #### [address] [place], [place] [phone] University Archivist: Mauricio Irby MD #### LIPR, FT3, INSU, T4, FE, GLYHGB #### [address] [address] University Archivist: Casa Medrano MD RBC (Bld) [#/Vol] 4.81 10*6/uL Normal 3.95-5.11 [facility] Comment on above: Performed By: #### T SH, CDP #### [address] [place], [place] [phone] University Archivist: Mauricio Irby MD #### LIPR, FT3, INSU, T4, FE, GLYHGB #### [address] [address] University Archivist: Casa Medrano MD WBC (Bld) [#/Vol] 11.0 10*3/uL Normal 3.5-11.3 [facility] Comment on above: Performed By: #### T SH, CDP #### [address] [place], [place] [phone] University Archivist: Mauricio Irby MD #### LIPR, FT3, INSU, T4, FE, GLYHGB #### [address] [phone] University Archivist: Casa Medrano MD Hemoglobin A1Con 08-05-2023 Glucose [Mass/Vol] 100 mg/dL Normal [facility] Comment on above: Result Comment: The ADA and AACC recommend providing the estimated average glucose result to permit better patient understanding of their HBA1c result. Performed By: #### C JANIE RAMIREZ, CP #### [facility] [address] [place] [address] Dr. [place], [place] [phone] University Archivist: Mauricio Irby MD HbA1c (Bld) [Mass fraction] 5.1 % Normal 4.0-6.0 [facility] Comment on above: Performed By: #### C JANIE RAMIREZ, CP #### [address] [place], [place] [phone] University Archivist: Mauricio Irby MD Insulinon 08-05-2023 Insulin 19.2 mU/L Normal [facility] Comment on above: Performed By: #### T SH, CDP #### [address] [place], [place] [phone] University Archivist: Mauricio Irby MD #### LIPR, FT3, INSU, T4, FE, GLYHGB #### [facility] [place], [place] [id number] University Archivist: Casa Medrano MD Reference Range Normal [facility] Comment on above: Result Comment: Fast in.6-24.9 30 min: 20-112 60 min: 29-88 90 min: 26-84 120 min: 22-79 Performed By: #### T SH, CDP #### [facility] [address] [place] [address] [place] [address] University Archivist: Maruicio Irby MD #### LIPR, FT3, INSU, T4, FE, GLYHGB #### [place] [address] [place], [place] [phone] University Archivist: Casa Medrano MD Ironon 08-05-2023 Iron [Mass/Vol] 68 ug/dL Normal 37-145 [facility] Comment on above: Performed By: #### C DP, LIP, CP #### [address] [place] [address] University Archivist: Mauricio Irby MD Lipid Profileon 08-05-2023 Cholesterol [Mass/Vol] 171 mg/dL Normal 0-199 [facility] Comment on above: Result Comment: Cholesterol Guidelines: <200 Desirable 200-240 Borderline >240 Undesirable Performed By: #### T SH, CDP #### [address] [place] [address] University Archivist: Mauricio Irby MD #### LIPR, FT3, INSU, T4, FE, GLYHGB #### [address] [phone] University Archivist: Casa Medrano MD Cholesterol in HDL [Mass/Vol] 52 mg/dL Normal >40 [facility] Comment on above: Result Comment: HDL Guidelines: <40 Undesirable 40-59 Borderline >59 Desirable Performed By: #### T SH, CDP #### [address] [place] [address] University Archivist: Mauricio Irby MD #### LIPR, FT3, INSU, T4, FE, GLYHGB #### [address] [phone] University Archivist: Casa Medrano MD Cholesterol in LDL [Mass/Vol] 100 mg/dL Normal 0-100 [facility] Comment on above: Result Comment: LDL Guidelines: <100 Desirable 100-129 Near to/above Desirable 130-159 Borderline >159 Undesirable Direct (measured) LDL and calculated LDL are not interchangeable tests. Performed By: #### T SH, CDP #### [address] [place] [address] University Archivist: Mauricio Irby MD #### LIPR, FT3, INSU, T4, FE, GLYHGB #### [place] [id number] [place] [address] University Archivist: Casa Medrano MD Cholesterol in VLDL [Mass/Vol] 19 mg/dL Normal [facility] Comment on above: Performed By: #### T SH, CDP #### [address] [place], [place] [phone] University Archivist: Mauricio Irby MD #### LIPR, FT3, INSU, T4, FE, GLYHGB #### [address] [address] University Archivist: Casa Medrano MD Cholesterol.total /Cholesterol in HDL [Mass ratio] 3.0 {ratio} Normal [facility] Comment on above: Performed By: #### T DANIEL, CDP #### [address] [place] [address] University Archivist: Mauricio Irby MD #### LIPR, FT3, INSU, T4, FE, GLYHGB #### [address] [phone] University Archivist: Casa Medrano MD Triglyceride [Mass/Vol] 93 mg/dL Normal <150 [facility] Comment on above: Result Comment: Triglyceride Guidelines: <150 Desirable 150-199 Borderline 200-499 High >499 Very high Based on AHA Guidelines for fasting triglyceride, November 2011. Performed By: #### T SH, CDP #### [address] [place], [place] [phone] University Archivist: Mauricio Irby MD #### LIPR, FT3, INSU, T4, FE, GLYHGB #### [address] [address] University Archivist: Casa Medrano MD T3, Freeon 08-05-2023 Free T3 [Mass/Vol] 2.90 pg/mL Normal 2.00-4.40 [facility] Comment on above: Performed By: #### C DP LIP, CP #### [address] [place] [address] University Archivist: Mauricio Irby MD Thyroid Stim. Horm.on 2023 Thyroid Stim. Horm. 1.33 uIU/mL Normal 0.30-5.00 [facility] Comment on above: Performed By: #### T SH, CDP #### [address] [place] [address] University Archivist: Mauricio Irby MD #### LIPR, FT3, INSU, T4, FE, GLYHGB #### [place] [address] [place], [place] [id number] University Archivist: Casa Medrano MD Thyroxine T4on 08-05-2023 T4 [Mass/Vol] 9.9 ug/dL Normal 4.5-11.7 [facility] Comment on above: Performed By: #### T SH, CDP #### [address] [place] [address] University Archivist: Mauricio Irby MD #### LIPR, FT3, INSU, T4, FE, GLYHGB #### [place] [address] [place], [place] [phone] University Archivist: Casa Medrano MD Cult,Urineon 10-28-2022 Cult,Urine Specimen Description .CLEAN CATCH URINE Culture NO SIGNIFICANT GROWTH Report Status FINAL 10/28/2022 Normal [facility] Comment on above: Performed By: #### C JANIE RAMIREZ, CP #### [address] [place] [address] University Archivist: Mauricio Irby MD CBC with Auto Differentialon 10-27-2022 Basophils (Bld) [#/Vol] 0.03 10*3/uL [facility] Basophils/100 WBC (Bld) 0 % 0 - 2 % [facility] Eosinophils (Bld) [#/Vol] 0.07 10*3/uL [facility] Eosinophils/100 WBC (Bld) 1 % 1 - 4 % [facility] Erythrocyte distribution width (RBC) [Ratio] 12.6 % 11.8 - 14.4 % [facility] Hematocrit (Bld) [Volume fraction] 43.7 % 36.3 - 47.1 % [facility] Hemoglobin (Bld) [Mass/Vol] 14.3 g/dL 11.9 - 15.1 g/dL [facility] Immature granulocytes (Bld) [#/Vol] 0.04 10*3/uL [facility] Immature granulocytes/100 WBC (Bld) 0 % 0 [facility] Interpretation and review of laboratory results Abnormal [facility] Lymphocytes/100 WBC (Bld) 27 % 24 - 43 % [facility] Lymphocytes/100 WBC (Bld) 2.50 % [facility] MCH (RBC) [Entitic mass] 31.2 pg 25.2 - 33.5 pg [facility] MCHC (RBC) [Mass/Vol] 32.7 g/dL 28.4 - 34.8 g/dL [facility] MCV (RBC) [Entitic vol] 95.4 fL 82.6 - 102.9 fL [facility] Monocytes/100 WBC (Bld) 5 % 3 - 12 % [facility] Monocytes/100 WBC (Bld) 0.44 % [facility] Neutrophils/100 WBC (Bld) 67 % High 36 - 65 % [facility] Nucleated RBC/100 WBC (Bld) [Ratio] 0.0 % 0.0 per 100 WBC [facility] Platelet mean volume (Bld) [Entitic vol] 8.9 fL 8.1 - 13.5 fL [facility] Platelets (Bld) [#/Vol] 264 10*3/uL [facility] RBC (Bld) [#/Vol] 4.58 10*6/uL 3.95 - 5.1 1 m/uL [facility] Segmented neutrophils/100 WBC (Bld) 6.32 % [facility] WBC other (Bld) [#/Vol] 9.4 [facility] CBC with Diffon 10-27-2022 Abs. Basophil 0.03 k/uL Normal 0.00-0.20 [facility] Comment on above: Performed By: #### C DP, LIP, CP #### [facility] [address] [place] [address] [place] [address] University Archivist: Mauricio Irby MD Abs.Imm.Granulocy te 0.04 k/uL Normal 0.00-0.30 [facility] Comment on above: Performed By: #### C DP, LIP, CP #### [address] [place] [address] University Archivist: Mauricio Irby MD Abs.Neutrophil (Seg) 6.32 k/uL Normal 1.50-8.10 [facility] Comment on above: Performed By: #### C DP, LIP, CP #### [address] [place], [place] [address] University Archivist: Mauricio Irby MD Basophils/100 WBC (Bld) 0 % Normal 0-2 [facility] Comment on above: Performed By: #### C DP, LIP, CP #### [address] [place] [address] University Archivist: Mauricio Irby MD Eosinophils (Bld) [#/Vol] 0.07 10*3/uL Normal 0.00-0.44 [facility] Comment on above: Performed By: #### C DP, LIP, CP #### [address] [place], [facility] University Archivist: Mauricio Irby MD Eosinophils/100 WBC (Bld) 1 % Normal 1-4 [facility] Comment on above: Performed By: #### C DP, LIP, CP #### [address] [place] [id number] University Archivist: Mauricio Irby MD Erythrocyte distribution width (RBC) [Ratio] 12.6 % Normal 11.8-14.4 [facility] Comment on above: Performed By: #### C DP LIP, CP #### [facility] [address] [place], [place] [id number] University Archivist: Mauricio Irby MD Hematocrit (Bld) [Volume fraction] 43.7 % Normal 36.3-47.1 [facility] Comment on above: Performed By: #### C DP, LIP, CP #### [facility] [address] [place] [address] University Archivist: Mauricio Irby MD Hemoglobin (Bld) [Mass/Vol] 14.3 g/dL Normal 11.9-15.1 [facility] Comment on above: Performed By: #### C JAMES LIP, CP #### [address] [place], [place] [address] University Archivist: Mauricio Irby MD Immature granulocytes/100 WBC (Bld) 0 % Normal 0 [facility] Comment on above: Performed By: #### C JAMES LIP, CP #### [address] [place] [address] University Archivist: Mauricio Irby MD Lymphocytes (Bld) [#/Vol] 2.50 10*3/uL Normal 1.10-3.70 [facility] Comment on above: Performed By: #### C DP LIP, CP #### [facility] [address] [place] [address] University Archivist: Mauricio Irby MD Lymphocytes/100 WBC (Bld) 27 % Normal 24-43 [facility] Comment on above: Performed By: #### C DP, LIP, CP #### [facility] [address] [place], [place] [phone] University Archivist: Mauricio Irby MD MCH (RBC) [Entitic mass] 31.2 pg Normal 25.2-33.5 [facility] Comment on above: Performed By: #### C JANIE RAMIREZ, CP #### [address] [place], [place] [id number] University Archivist: Mauricio Irby MD MCHC (RBC) [Mass/Vol] 32.7 g/dL Normal 28.4-34.8 [facility] Comment on above: Performed By: #### C JANIE RAMIREZ, CP #### [address] [place] [address] University Archivist: Mauricio Irby MD MCV (RBC) [Entitic vol] 95.4 fL Normal 82.6-102.9 [facility] Comment on above: Performed By: #### C JANIE RAMIREZ, CP #### [address] [place], [facility] University Archivist: Mauricio Irby MD Monocytes (Bld) [#/Vol] 0.44 10*3/uL Normal 0.10-1.20 [facility] Comment on above: Performed By: #### C JANIE RAMIREZ, CP #### [address] [place], [place] 2675983 University Archivist: Mauricio Irby MD Monocytes/100 WBC (Bld) 5 % Normal 3-12 [facility] Comment on above: Performed By: #### C JANIE RAMIREZ, CP #### [address] [place], [place] [phone] University Archivist: Mauricio Irby MD Neutrophil (Seg) 67 % High 36-65 [facility] Comment on above: Performed By: #### C JANIE RAMIREZ, CP #### [address] [place] [address] University Archivist: Mauricio Irby MD NRBC Automated 0.0 per 100 WBC Normal 0.0 [facility] Comment on above: Performed By: #### C JAMES LIP, CP #### [address] [place], [facility] University Archivist: Mauricio Irby MD Platelet mean volume (Bld) [Entitic vol] 8.9 fL Normal 8.1-13.5 [facility] Comment on above: Performed By: #### C JAMES LIP, CP #### [address] [place], [facility] University Archivist: Mauricio Irby MD Platelets (Bld) [#/Vol] 264 10*3/uL Normal 138-453 [facility] Comment on above: Performed By: #### C JANIE RAMIREZ, CP #### [address] [place], [place] [id number] University Archivist: Mauricio Irby MD RBC (Bld) [#/Vol] 4.58 10*6/uL Normal 3.95-5.11 [facility] Comment on above: Performed By: #### C JANIE RAMIREZ, CP #### [address] [place], [facility] University Archivist: Mauricio Irby MD WBC (Bld) [#/Vol] 9.4 10*3/uL Normal 3.5-11.3 [facility] Comment on above: Performed By: #### C JAMES LIP, CP #### [address] [place], [facility] University Archivist: Mauricio Irby MD CT ABDOMEN PELVIS W [...] Ronni Vaughn MD 10/27/22 Final result Normal [facility] CT ABDOMEN PELVIS W IV CONTR AST Additional Contrast? Noneon 10-27-2022 No acute abnormality identified. [facility] EXAMINATION: CT OF THE [...] findings do not require dedicated imaging follow-up. [facility] Ronni Vaughn MD - [...] imaging follow-up. IMPRESSION: No acute abnormality identified. [facility] Radiology Study observation (narrative) [facility] CT ABDOMEN PELVIS W IV CONTR AST Additional Contrast? NoneOrdered By: Ronni Vaughn on 10-27-2022 [facility] Work Phone: Comp Metabolic Profon 2022 Albumin [Mass/Vol] 4.0 g/dL Normal 3.5-5.2 [facility] Comment on above: Performed By: #### C DP, LIP, CP #### [address] [place] [address] University Archivist: Mauricio Irby MD Albumin/Glob Ratio 1.1 Normal 1.0-2.5 [facility] Comment on above: Performed By: #### C DP LIP, CP #### [address] [place] [address] University Archivist: Mauricio Irby MD Alkaline Phos 82 U/L Normal 35-104 [facility] Comment on above: Performed By: #### C DP, LIP, CP #### [address] [place] [id number] University Archivist: Mauricio Irby MD ALT [Catalytic activity/Vol] 11 U/L Normal 5-33 [facility] Comment on above: Performed By: #### C DP, LIP, CP #### [facility] [address] [place], [place] [id number] University Archivist: Mauricio Irby MD Anion gap [Moles/Vol] 8 mmol/L Low 9-17 [facility] Comment on above: Performed By: #### C DP, LIP, CP #### [facility] [address] [place], [place] 1070883 University Archivist: Mauricio Irby MD AST [Catalytic activity/Vol] 12 U/L Normal <32 [facility] Comment on above: Performed By: #### C DP LIP, CP #### [facility] [address] [place], [place] 7992783 University Archivist: Mauricio Irby MD Bilirubin [Mass/Vol] 0.2 mg/dL Low 0.3-1.2 [facility] Comment on above: Performed By: #### C JAMES LIP, CP #### [facility] [address] [place] [address] Dr[address] [place], [place] [id number] University Archivist: Mauricio Irby MD BUN/CRE Ratio 11 Normal 9-20 [facility] Comment on above: Performed By: #### C DP LIP, CP #### [facility] [address] [place], [place] [id number] University Archivist: Mauricio Irby MD Calcium [Mass/Vol] 9.2 mg/dL Normal 8.6-10.4 [facility] Comment on above: Performed By: #### C DP, LIP, CP #### [facility] [address] [place], [place] [id number] University Archivist: Mauricio Irby MD Chloride [Moles/Vol] 102 mmol/L Normal 98-107 [facility] Comment on above: Performed By: #### C JANIE RAMIREZ, CP #### [facility] [address] [place] [address] University Archivist: Mauricio Irby MD CO2 [Moles/Vol] 27 mmol/L Normal 20-31 [facility] Comment on above: Performed By: #### C JANIE RAMIREZ, CP #### [facility] [address] [place] [address] University Archivist: Mauricio Irby MD Creatinine [Mass/Vol] 0.7 mg/dL Normal 0.5-0.9 [facility] Comment on above: Performed By: #### C JANIE RAMIREZ, CP #### [facility] [address] [place] [address] University Archivist: Mauricio Irby MD GFR/1.73 sq M.predicted among non-blacks MDRD (S/P/Bld) [Vol rate/Area] mL/min/{1.73_m2} Normal >60 [facility] Comment on above: Result Comment: These [...] By: #### C JANIE RAMIREZ, CP #### [facility] [address] [place] [address] University Archivist: Mauricio Irby MD Glucose [Mass/Vol] 134 mg/dL High 70-99 [facility] Comment on above: Performed By: #### C JANIE RAMIREZ, CP #### [facility] [address] [place] [address] University Archivist: Mauricio Irby MD Potassium [Moles/Vol] 4.1 mmol/L Normal 3.7-5.3 [facility] Comment on above: Performed By: #### C DP LIP, CP #### [facility] [address] [place], [place] [id number] University Archivist: Mauricio Irby MD Protein [Mass/Vol] 7.7 g/dL Normal 6.4-8.3 [facility] Comment on above: Performed By: #### C JAMES LIP, CP #### [facility] [address] [place], [place] [id number] University Archivist: Mauricio Irby MD Sodium [Moles/Vol] 137 mmol/L Normal 135-144 [facility] Comment on above: Performed By: #### C JANIE RAMIREZ, CP #### [facility] [address] [place], [place] [id number] University Archivist: Mauricio Irby MD Urea nitrogen [Mass/Vol] 8 mg/dL Normal 6-20 [facility] Comment on above: Performed By: #### C JAMES LIP, CP #### [facility] [address] [place] [address] University Archivist: Mauricio Irby MD Comprehensive Met[facility] 10-27-2022 Albumin [Mass/Vol] 4.0 g/dL 3.5 - 5.2 g/dL [facility] Albumin/Globulin [Mass ratio] 1.1 {ratio} 1.0 - 2.5 [facility] ALP [Catalytic activity/Vol] 82 U/L 35 - 104 U/L [facility] ALT [Catalytic activity/Vol] 11 U/L 5 - 33 U/L [facility] Anion gap [Moles/Vol] 8 mmol/L Low 9 - 17 mmol/L [facility] AST [Catalytic activity/Vol] 12 U/L NINF - 32 U/L [facility] Bilirubin [Mass/Vol] 0.2 mg/dL Low 0.3 - 1.2 mg/dL [facility] Calcium [Mass/Vol] 9.2 mg/dL 8.6 - 10.4 mg/dL [facility] Chloride [Moles/Vol] 102 mmol/L 98 - 107 mmol/L [facility] CO2 [Moles/Vol] 27 mmol/L 20 - 31 mmol/L [facility] Creatinine [Mass/Vol] 0.7 mg/dL 0.5 - 0.9 mg/dL [facility] GFR/1.73 sq M.predicted MDRD (S/P/Bld) [Vol rate/Area] - PINF [facility] Comment on above: These results are [...] 134 mg/dL High 70 - 99 mg/dL [facility] Potassium [Moles/Vol] 4.1 mmol/L 3.7 - 5.3 mmol/L [facility] Protein [Mass/Vol] 7.7 g/dL 6.4 - 8.3 g/dL [facility] Sodium [Moles/Vol] 137 mmol/L 135 - 144 mmol/L [facility] Urea nitrogen [Mass/Vol] 8 mg/dL 6 - 20 mg/dL [facility] Urea nitrogen/Creatini ne [Mass ratio] 11 mg/mg 9 - 20 [facility] Lactic Acidon 10-27-2022 Lactate (BldV) [Moles/Vol] 1.6 mmol/L 0.5 - 2.2 mmol/L [facility] Lactate [Moles/Vol] 1.6 mmol/L Normal 0.5-2.2 [facility] Comment on above: Performed By: #### C JANIE RAMIREZ CP #### [facility] [address] [place] [address] University Archivist: Mauricio Irby MD Lipaseon 09-18-2023 Lipase [Catalytic activity/Vol] 67 U/L High 13 - 60 U/L [facility] Lipase [Catalytic activity/Vol] 67 U/L High 13-60 [facility] Comment on above: Performed By: #### C DP, LIP, CP #### [facility] [address] [place] [address] University Archivist: Mauricio Irby MD No Panel Informationon 10-27 Interpretation and review of laboratory results Abnormal [facility] Urinalysis w/ Microon 2022 Bacteria 1+ Abnormal NONE [facility] Comment on above: Performed By: #### U AMIC #### [facility] [address] [place], [place] [id number] University Archivist: Mauricio Irby MD Bilirubin, SemiQt,Ur Negative Normal NEG [facility] Comment on above: Performed By: #### U AMIC #### [facility] [address] [place], [place] [id number] University Archivist: Mauricio Irby MD Blood, Urine Negative Normal NEG [facility] Comment on above: Performed By: #### U AMIC #### [facility] [address] [place], [place] [id number] University Archivist: Mauricio Irby MD Clarity (U) Clear Normal CLEAR [facility] Comment on above: Performed By: #### U AMIC #### [facility] [address] [place], [place] [id number] University Archivist: Mauricio Irby MD Color (U) Yellow Normal YEL [facility] Comment on above: Performed By: #### U AMIC #### [facility] [address] [place], [place] [id number] University Archivist: Mauricio Irby MD Epithelial cells LM Ql (Urine sed) 10 TO 20 Normal 0-25 [facility] Comment on above: Performed By: #### U AMIC #### [facility] [address] [place], [place] [id number] University Archivist: Mauricio Irby MD Glucose Ql (U) Negative Normal NEG [facility] Comment on above: Performed By: #### U AMIC #### [facility] [address] [place] [address] Dr. [place], [place] [id number] University Archivist: Mauricio Irby MD Ketones Ql (U) Negative Normal NEG [facility] Comment on above: Performed By: #### U AMIC #### [facility] [address] [place] [address] Dr. [place], [place] [id number] University Archivist: Mauricio Irby MD Leukocyte esterase Test strip Ql (U) Negative Normal NEG [facility] Comment on above: Performed By: #### U AMIC #### [facility] [address] [place] [address] Dr. [place], [place] [id number] University Archivist: Mauricio Irby MD Nitrite,Ur Negative Normal NEG [facility] Comment on above: Performed By: #### U AMIC #### [facility] [address] [place] [address] [place] [address] University Archivist: Mauricio Irby MD PH,Ur 6.0 Normal 5.0-9.0 [facility] Comment on above: Performed By: #### U AMIC #### [facility] [address] [place] [address] [place] [address] University Archivist: Mauricio Irby MD Protein Ql (U) Negative Normal NEG [facility] Comment on above: Performed By: #### U AMIC #### [facility] [address] [place] [address] Dr. [place], [place] [id number] University Archivist: Mauricio Irby MD Spec. [place],Ur 1.010 Normal 1.010-1.020 [facility] Comment on above: Performed By: #### U AMIC #### [facility] [address] [place] [address] Dr. [place], [place] [address] University Archivist: Mauricio Irby MD Urine RBC's 0 TO 2 Normal 0-2 [facility] Comment on above: Performed By: #### U AMIC #### [facility] [address] [place], [place] [id number] University Archivist: Mauricio Irby MD Urine WBC's 0 TO 2 Normal 0-5 [facility] Comment on above: Performed By: #### U AMIC #### [facility] [address] [place], [place] [id number] University Archivist: Mauricio Irby MD Urobilinogen,Ur Normal Normal 0.0-1.0 [facility] Comment on above: Performed By: #### U AMIC #### [facility] [address] [place] [address] Dr. [place], [place] [id number] University Archivist: Mauricio Irby MD Urinalysis with Microscopico n 10-27-2022 Bacteria LM Ql (Urine sed) 1+ Abnormal None [facility] Bilirubin Ql (U) Negative NEGATIVE [facility] Clarity (U) Clear Clear [facility] Color (U) Yellow Yellow [facility] Epithelial cells LM.HPF (Urine sed) [#/Area] 10 TO 20 [facility] Glucose Test strip (U) [Mass/Vol] Negative NEGATIVE mg/dL [facility] Hemoglobin Auto test strip Ql (U) Negative NEGATIVE [facility] Interpretation and review of laboratory results Abnormal [facility] Ketones (U) [Mass/Vol] Negative NEGATIVE mg/dL [facility] Leukocyte esterase Test strip Ql (U) Negative NEGATIVE [facility] Nitrite Ql (U) Negative NEGATIVE [facility] pH (U) 6.0 [pH] 5.0 - 9.0 [facility] Protein (U) [Mass/Vol] Negative NEGATIVE mg/dL [facility] RBC LM.HPF (Urine sed) [#/Area] 0 TO 2 [facility] Specific gravity (U) [Rel density] 1.010 1.010 - 1.020 [facility] Urobilinogen Qn (U) Normal 0.0 - 1.0 EU/dL [facility] WBC LM.HPF (Urine sed) [#/Area] 0 TO 2 [facility] XR ABD FLAT UP_PA Joyce 03-25 XR [...] MAURICIO LYONS Date: 2022-03-25 08:01 Normal [facility] AMYLASEon 03-24-2022 Amylase [Catalytic activity/Vol] 36 U/L Normal 25-115 [facility] Comment on above: Performed By: #### C MP, DARION, LIPA #### [facility] [address] [place] [address] Dr. Melecio Chadwick CBC AUTO DIFFon 03-24-2022 BASO # 0.0 103/ul Normal 0.0-0.[address] [facility] Comment on above: Performed By: #### C BC #### [facility] [address] [place] [address] Dr. Melecio Chadwick Basophils/100 WBC (Bld) 0.2 % Normal 0.2-2.0 [facility] Comment on above: Performed By: #### C BC #### [facility] [address] [place] [address] Dr. Melecio Chadwick EO # 0.1 103/ul Normal 0.0-0.[address] [facility] Comment on above: Performed By: #### C BC #### [facility] [address] [place] [address] Dr. Melecio Chadwick Eosinophils/100 WBC (Bld) 1.1 % Normal 0.9-7.[address] [facility] Comment on above: Performed By: #### C BC #### [facility] [address] [place] [address] Dr. Melecio Chadwick Erythrocyte distribution width (RBC) [Ratio] 12.3 % Normal 11.0-15.[address] [facility] Comment on above: Performed By: #### C BC #### [facility] [address] [place] [address] Dr. Melecio Chadwick Hematocrit (Bld) [Volume fraction] 42.5 % Normal 36.0-48.[address] [facility] Comment on above: Performed By: #### C BC #### [facility] [address] [place] [address] Dr. Melecio Chadwick Hemoglobin (Bld) [Mass/Vol] 14.3 g/dL Normal 12.0-16.[address] [facility] Comment on above: Performed By: #### C BC #### [facility] [address] [place] [address] Dr. Melecio Chadwick IG # 0.03 10e3/ul Normal 0.00-0.[address] [facility] Comment on above: Performed By: #### C BC #### [facility] [address] [place] [address] Dr. Melecio Chadwick IG % 0.3 % Normal 0.0-0.[address] [facility] Comment on above: Performed By: #### C BC #### [facility] [address] [place] [address] Dr. Melecio Chadwick LYMPH # 3.1 103/ul Normal 1.2-3.[address] [facility] Comment on above: Performed By: #### C BC #### [facility] [address] [place] [address] Dr. Melecio Chadwick Lymphocytes/100 WBC (Bld) 29.8 % Normal 20.5-60.[address] [facility] Comment on above: Performed By: #### C BC #### [facility] [address] [place] [address] Dr. Melecio Chadwick MANUAL DIFF REQ NO Normal [facility] Comment on above: Performed By: #### C BC #### [facility] [address] [address] [address] Melecio Chadwick MCH (RBC) [Entitic mass] 31.0 pg Normal 26.7-34.0 [facility] Comment on above: Performed By: #### C BC #### [facility] [address] [place] [address] Dr. Melecio Chadwick MCHC (RBC) [Mass/Vol] 33.6 g/dL Normal 29.9-35.2 [facility] Comment on above: Performed By: #### C BC #### [facility] [address] [place] [address] Dr. Melecio Chadwick MCV (RBC) [Entitic vol] 92.2 fL Normal 81.0-99.0 [facility] Comment on above: Performed By: #### C BC #### [facility] [address] [place] [address] Dr. Melecio Chadwick MONO # 0.6 103/ul Normal 0.3-0.8 [facility] Comment on above: Performed By: #### C BC #### [facility] [address] [place] [address] Dr. Melecio Chadwick Monocytes/100 WBC (Bld) 5.8 % Normal 1.7-12.[address] [facility] Comment on above: Performed By: #### C BC #### [facility] [address] [place] [address] Dr. Melecio Chadwick NEUT # 6.5 103/ul Normal 1.4-6.5 [facility] Comment on above: Performed By: #### C BC #### [facility] [address] [place] [address] Dr. Melecio Chadwick Neutrophils/100 WBC (Bld) 62.8 % Normal 43.0-75.0 [facility] Comment on above: Performed By: #### C BC #### [facility] [address] [place] [address] Dr. Melecio Chadwick Platelet mean volume (Bld) [Entitic vol] 9.0 fL Critically low 9.5-13.5 [facility] Comment on above: Performed By: #### C BC #### [facility] [address] [place] [address] Dr. Melecio Chadwick PLT 268 103/ul Normal 150-450 [facility] Comment on above: Performed By: #### C BC #### [facility] [address] [place] [address] Dr. Melecio Chadwick RBC 4.61 106/ul Normal 4.20-5.40 [facility] Comment on above: Performed By: #### C BC #### [facility] [address] [place] [address] Dr. Melecio Chadwick WBC 10.4 103/ul Normal 4.0-11.0 [facility] Comment on above: Performed By: #### C BC #### [facility] [address] [place] [address] Dr. Melecio Chadwick LIPASEon 03-24-2022 Lipase [Catalytic activity/Vol] 114.0 U/L Normal 73.0-393.0 [facility] Comment on above: Performed By: #### C MP DARION, LIPA #### [facility] [address] [place] [address] Dr. Melecio Chadwick PROF 14(COMP METB)on 023 Albumin [Mass/Vol] 3.5 g/dL Normal 3.4-5.[address] [facility] Comment on above: Performed By: #### C MP, DARION, LIPA #### [facility] [address] [place] [address] Dr. Melecio Chadwick Albumin/Globulin [Mass ratio] 0.8 {ratio} Normal [facility] Comment on above: Performed By: #### C MP, DARION, LIPA #### [facility] [address] [place] [address] Dr. Melecio Chadwick ALP [Catalytic activity/Vol] 85 U/L Normal 46-116 [facility] Comment on above: Performed By: #### C MP, DARION, LIPA #### [facility] [address] [place] [address] Dr. Melecio Chadwick ALT [Catalytic activity/Vol] 21 U/L Normal 14-59 [facility] Comment on above: Performed By: #### C MP, DARION, LIPA #### [facility] [address] [place] [address] Dr. Melecio Chadwick Anion gap [Moles/Vol] 11.6 mmol/L Normal [facility] Comment on above: Performed By: #### C MP, DARION, LIPA #### [facility] [address] [place] [address] Dr. Melecio Chadwick AST [Catalytic activity/Vol] 15 U/L Normal 15-37 [facility] Comment on above: Performed By: #### C MP, DARION, LIPA #### [facility] [address] [place] [address] Dr. Melecio Chadwick Bilirubin [Mass/Vol] 0.3 mg/dL Normal 0.2-1.[address] [facility] Comment on above: Performed By: #### C MP, DARION, LIPA #### [facility] [address] [place] [address] Dr. Melecio Chadwick Calcium [Mass/Vol] 8.8 mg/dL Normal 8.5-10.1 [facility] Comment on above: Performed By: #### C MP, DARION, LIPA #### [facility] [address] [place] [address] Dr. Melecio Chadwick Chloride [Moles/Vol] 102 mmol/L Normal 98-107 [facility] Comment on above: Performed By: #### C MP, DARION, LIPA #### [facility] [address] [place] [address] Dr. Melecio Chadwick CO2 [Moles/Vol] 28.5 mmol/L Normal 21.0-32.0 [facility] Comment on above: Performed By: #### C MP, DARION, LIPA #### [facility] [address] [place] [address] Dr. Melecio Chadwick Creatinine [Mass/Vol] 0.76 mg/dL Normal 0.55-1.[address] [facility] Comment on above: Performed By: #### C MP, DARION, LIPA #### [facility] [address] [place] [address] Dr. Melecio Chadwick EGFR-AF ZAMBIAN >60 Normal >=60 [facility] Comment on above: Performed By: #### C DARION LOGAN, LIPA #### [facility] [address] [place] [address] Dr. Melecio Chadwick EGFR-NON AF ZAMBIAN >60 Normal >=[address] [facility] Comment on above: Performed By: #### C MP, DARION, LIPA #### [facility] [address] [place] [address] Dr. Melecio Chadwick Globulin (S) [Mass/Vol] 4.2 g/dL Normal [facility] Comment on above: Performed By: #### C DARION LOGAN, LIPA #### [facility] [address] [place] [address] Dr. Melecio Chadwick Glucose [Mass/Vol] 97 mg/dL Normal 74-106 [facility] Comment on above: Performed By: #### C DOREEN DARION, LIPA #### [facility] [address] [place] [address] Dr. Melecio Chadwick Potassium [Moles/Vol] 4.1 mmol/L Normal 3.5-5.1 [facility] Comment on above: Performed By: #### C DARION LOGAN, LIPA #### [facility] [address] [place] [address] Dr. Melecio Chadwick Protein [Mass/Vol] 7.7 g/dL Normal 6.4-8.2 [facility] Comment on above: Performed By: #### C DOREEN DARION, LIPA #### [facility] [address] [place] [address] Dr. Melecio Chadwick Sodium [Moles/Vol] 138 mmol/L Normal 136-145 [facility] Comment on above: Performed By: #### C DOREEN DARION, LIPA #### [facility] [address] [place] [address] Dr. Melecio Chadwick Urea nitrogen [Mass/Vol] 9.0 mg/dL Normal 7.0-18.0 [facility] Comment on above: Performed By: #### C DOREEN DARION, LIPA #### [facility] [address] [place] [address] Dr. Melecio Chadwick Urea nitrogen/Creatini ne [Mass ratio] 11.8 mg/mg Normal [facility] Comment on above: Performed By: #### C MP, DARION, LIPA #### [facility] [address] [place] [address] Dr. Melecio Chadwick AMYLASEon 03-19-2022 Amylase [Catalytic activity/Vol] 44 U/L Normal 25-115 [facility] Comment on above: Performed By: #### A MY, CMP, LIPA #### [facility] [address] [place] [address] Dr. Melecio Chadwick CBC AUTO DIFFon 03-19-2022 BASO # 0.0 103/ul Normal 0.0-0.[address] [facility] Comment on above: Performed By: #### C BC #### [facility] [address] [place] [address] Dr. Melecio Chadwick Basophils/100 WBC (Bld) 0.2 % Normal 0.2-2.[address] [facility] Comment on above: Performed By: #### C BC #### [facility] [address] [place] [address] Dr. Melecio Chadwick EO # 0.1 103/ul Normal 0.0-0.[address] [facility] Comment on above: Performed By: #### C BC #### [facility] [address] [place] [address] Dr. Melecio Chadwick Eosinophils/100 WBC (Bld) 1.5 % Normal 0.9-7.0 [facility] Comment on above: Performed By: #### C BC #### [facility] [address] [place] [address] Dr. Melecio Chadwick Erythrocyte distribution width (RBC) [Ratio] 12.4 % Normal 11.0-15.[address] [facility] Comment on above: Performed By: #### C BC #### [facility] [address] [place] [address] Dr. Melecio Chadwick Hematocrit (Bld) [Volume fraction] 41.8 % Normal 36.0-48.[address] [facility] Comment on above: Performed By: #### C BC #### [facility] [address] [place] [address] Dr. Melecio Chadwick Hemoglobin (Bld) [Mass/Vol] 13.2 g/dL Normal 12.0-16.[address] [facility] Comment on above: Performed By: #### C BC #### [facility] [address] [place] [address] Dr. Melecio Chadwick IG # 0.02 10e3/ul Normal 0.00-0.[address] [facility] Comment on above: Performed By: #### C BC #### [facility] [address] [place] [address] Dr. Melecio Chadwick IG % 0.2 % Normal 0.0-0.[address] [facility] Comment on above: Performed By: #### C BC #### [facility] [address] [place] [address] Dr. Melecio Chadwick LYMPH # 3.3 103/ul Normal 1.2-3.8 [facility] Comment on above: Performed By: #### C BC #### [facility] [address] [place] [address] Dr. Melecio Chadwick Lymphocytes/100 WBC (Bld) 38.0 % Normal 20.5-60.[address] [facility] Comment on above: Performed By: #### C BC #### [facility] [address] [place] [address] Dr. Melecio Chadwick MANUAL DIFF REQ NO Normal [facility] [place] Comment on above: Performed By: #### C BC #### [facility] [address] [place] [address] Dr. Melecio Chadwick MCH (RBC) [Entitic mass] 30.9 pg Normal 26.7-34.0 [facility] Comment on above: Performed By: #### C BC #### [facility] [address] [place] [address] Dr. Melecio Chadwick MCHC (RBC) [Mass/Vol] 31.6 g/dL Normal 29.9-35.2 [facility] Comment on above: Performed By: #### C BC #### [facility] [id number] Melecio Chadwick MCV (RBC) [Entitic vol] 97.9 fL Normal 81.0-99.0 [facility] Comment on above: Performed By: #### C BC #### [facility] [address] [place] [address] Dr. Melecio Chadwick MONO # 0.4 103/ul Normal 0.3-0.8 [facility] Comment on above: Performed By: #### C BC #### [facility] [address] [place] [address] Dr. Melecio Chadwick Monocytes/100 WBC (Bld) 4.6 % Normal 1.7-12.0 [facility] Comment on above: Performed By: #### C BC #### [facility] [address] [place] [address] Dr. Melecio Chadwick NEUT # 4.8 103/ul Normal 1.4-6.5 [facility] Comment on above: Performed By: #### C BC #### [facility] [address] [place] [address] Dr. Melecio Chadwick Neutrophils/100 WBC (Bld) 55.5 % Normal 43.0-75.0 [facility] Comment on above: Performed By: #### C BC #### [facility] [address] [place] [address] Dr. Melecio Chadwick Platelet mean volume (Bld) [Entitic vol] 9.7 fL Normal 9.5-13.5 [facility] Comment on above: Performed By: #### C BC #### [facility] [address] [place] [address] Dr. Melecio Chadwick PLT 258 103/ul Normal 150-450 [facility] Comment on above: Performed By: #### C BC #### [facility] [address] [place] [address] Dr. Melecio Chadwick RBC 4.27 106/ul Normal 4.20-5.40 [facility] Comment on above: Performed By: #### C BC #### [facility] [address] [place] [address] Dr. Melecio Chadwick WBC 8.7 103/ul Normal 4.0-11.0 [facility] Comment on above: Performed By: #### C BC #### [facility] [address] [place] [address] Dr. Melecio Chadwick LIPASEon 03-19-2022 Lipase [Catalytic activity/Vol] 119.0 U/L Normal 73.0-393.[address] [facility] Comment on above: Performed By: #### A MY, CMP, LIPA #### [facility] [address] [place] [address] Dr. Melecio Chadwick PROF 14(COMP METB)on 023 Albumin [Mass/Vol] 3.2 g/dL Critically low 3.4-5.[address] [facility] Comment on above: Performed By: #### A MY, CMP, LIPA #### [facility] [address] [place] [address] Dr. Melecio Chadwick Albumin/Globulin [Mass ratio] 0.9 {ratio} Normal [facility] Comment on above: Performed By: #### A MY, CMP, LIPA #### [facility] [address] [place] [address] Dr. Melecio Chadwick ALP [Catalytic activity/Vol] 76 U/L Normal 46-[address] [facility] Comment on above: Performed By: #### A MY, CMP, LIPA #### [facility] [address] [place] [address] Dr. Melecio Chadwick ALT [Catalytic activity/Vol] 18 U/L Normal 14-59 [facility] Comment on above: Performed By: #### A MY, CMP, LIPA #### [facility] [address] [place] [address] Dr. Melecio Chadwick Anion gap [Moles/Vol] 11.6 mmol/L Normal [facility] Comment on above: Performed By: #### A MY, CMP, LIPA #### [facility] [address] [place] [address] Dr. Melecio Chadwick AST [Catalytic activity/Vol] 14 U/L Critically low 15-37 [facility] Comment on above: Performed By: #### A MY, CMP, LIPA #### [facility] [address] [place] [address] Dr. Melecio Chadwick Bilirubin [Mass/Vol] 0.2 mg/dL Normal 0.2-1.0 [facility] Comment on above: Performed By: #### A MY, CMP, LIPA #### [facility] [address] [place] [address] Dr. Melecio Chadwick Calcium [Mass/Vol] 7.9 mg/dL Critically low 8.5-10.1 [facility] Comment on above: Performed By: #### A MY, CMP, LIPA #### [facility] [address] [place] [address] Dr. Melecio Chadwick Chloride [Moles/Vol] 105 mmol/L Normal 98-107 [facility] Comment on above: Performed By: #### A MY, CMP, LIPA #### [facility] [address] [place] [address] Dr. Melecio Chadwick CO2 [Moles/Vol] 25.8 mmol/L Normal 21.0-32.0 [facility] Comment on above: Performed By: #### A MY, CMP, LIPA #### [facility] [address] [place] [address] Dr. Melecio Chadwick Creatinine [Mass/Vol] 0.67 mg/dL Normal 0.55-1.02 [facility] Comment on above: Performed By: #### A MY, CMP, LIPA #### [facility] [address] [place] [address] Dr. Melecio Chadwick EGFR-AF ZAMBIAN >60 Normal >=60 [facility] Comment on above: Performed By: #### A MY, CMP, LIPA #### [facility] [address] [place] [address] Dr. Melecio Chadwick EGFR-NON AF ZAMBIAN >60 Normal >=60 [facility] Comment on above: Performed By: #### A MY, CMP, LIPA #### [facility] [address] [place] [address] Dr. Melecio Chadwick Globulin (S) [Mass/Vol] 3.6 g/dL Normal [facility] Comment on above: Performed By: #### A MY, CMP, LIPA #### [facility] [address] [place] [address] Dr. Melecio Chadwick Glucose [Mass/Vol] 95 mg/dL Normal 74-[address] [facility] Comment on above: Performed By: #### A MY, CMP, LIPA #### [facility] [address] [place] [address] Dr. Melecio Chadwick Potassium [Moles/Vol] 3.4 mmol/L Critically low 3.5-5.1 [facility] Comment on above: Performed By: #### A MY CMP, LIPA #### [facility] [address] [place] [address] Dr. Melecio Chadwick Protein [Mass/Vol] 6.8 g/dL Normal 6.4-8.2 [facility] Comment on above: Performed By: #### A MY CMP, LIPA #### [facility] [address] [place] [address] Dr. Melecio Chadwick Sodium [Moles/Vol] 139 mmol/L Normal 136-145 [facility] Comment on above: Performed By: #### A MY CMP, LIPA #### [facility] [address] [place] [address] Dr. Melecio Chadwick Urea nitrogen [Mass/Vol] 6.0 mg/dL Critically low 7.0-18.[address] [facility] Comment on above: Performed By: #### A MY, CMP, LIPA #### [facility] [address] [place] [address] Dr. Melecio Chadwick Urea nitrogen/Creatini ne [Mass ratio] 9.0 mg/mg Normal [facility] Comment on above: Performed By: #### A MY CMP, LIPA #### [facility] [address] [place] [address] Dr. Melecio Chadwick Intraoperative Noteon 2017 Intraoperative Note [id number]#1.00OTGTIFF Normal [facility] Intraoperative Noteon 2017 Intraoperative Note [id number]#1.00[facility] History and Physicalon 01-23 History and Physical [id number]#1.00[facility] Provider Orderson 01-23-2017 Protein [id number]#1.00[facility] Coding Summaryon 12-08-2016 Coding Summary CODING DATE: 017 [facility] STATUS: Home PAYOR: [employer] APC DESCRIPTION 5113 Level 3 Musculoskeletal Procedures ADMIT DX: REASON FOR VISIT DX: S83.242A Other tear of medial meniscus, current injury, left knee, initial encounter FINAL DX: PRINCIPAL: M22.42 Chondromalacia patellae, left knee SECONDARY: M94.9 Disorder of cartilage, unspecified PYMT PROC APC STAT DESCRIPTION DOCTOR NAME DATE 47033 5113 J1 Arthroscopy, knee, ARIES HARO 12/05/2016 [...] Tamanna Ambrocio Date Saved: 12/08/2016 03:51 pm [facility] Consent Formson 12-08-2016 Consent Forms [id number]#1.00[facility] Discharge Instructionson Discharge Instructions [id number]#[address] [place] [address] Intraoperative Noteon 2016 Intraoperative Note [id number]#1.00[facility] MAGR PACU Recordon 7 MAGR PACU Record MAGR PACU Record [facility] Primary Physician: ARIES HARO Finalized Date/Time: 12/08/16 10:49:55 Pt. Name: TAMY WALLS/Sex: 1980 FEMALE Med Rec #: [id number] Physician: ARIES HARO Financial #: [id number] Pt. Type: D Room/Bed: / Admit/Disch: 12/05/16 [...] Signed By: Sana Jarvis RN 12/08/16 10:49 [facility] Preoperative Recordon 1 [facility] [place] [facility] Pre-[place] Record Summary Primary Physician: ARIES HARO Finalized Date/Time: 12/08/16 10:20:04 Pt. Name: TAMY WALLS/Sex: 1980 FEMALE Med Rec #: [id number] Physician: ARIES HARO Financial #: [id number] Pt. Type: D Room/Bed: / Admit/Disch: 12/05/16 [...] Signed By: Marium Ledbetter RN 12/08/16 10:20 [facility] Medication Managementon 11-11 Medication Management [id number]#1.00OTGTIFF [facility] Telemetry Stripson 7 Telemetry Strips [id number]#1.00OTGTIFF [facility] Anesthesia Noteon 12-05-2016 Anesthesia Note Patient: RUFUS WALLS : 36 years Sex: FEMALE : [birth year]Associated Diagnoses: NoneAuthor: Bunny Briggs MDPostoperative InformationPost Operative Note: Operative Day.Anesthetic utilized: General.Health StatusAllergies:Allergic Reactions (All)Severity Not DocumentedDilaudid- Angio-oedema.Percocet 5/325- Nausea & vomiting.Problem list (past medical history):All ProblemsAnxiety / SNOMED CT 92497091 / ConfirmedPhysical ExaminationVS/MeasurementsV ital Signs (last 24 [...] on: 12/05/2016 12:07 EDT] Bunny Briggs MD [facility] Anesthesia Note Patient: RUFUS WALLS : 36 [...] (past medical history):All ProblemsAnxiety / SNOMED CT 38726907 / ConfirmedHistoriesFamily History:No family history items have been selected or recorded.Procedure history:Hysterectomy (931681363) in 2014 at 33 Years.Comments:11/28/2016 10:07 - Shayy Sylvester RNpartialAppendectomy (040772111) in 2013 at 32 Years.Tubal ligation (887592339) in 2004 at 24 Years.Cholecystectomy (93156615) in 2000 at 19 Years.Ear care (079402748).Comments:2016 10:06 - Shayy Sylvester RNtubes k7Oytwff History Alcohol Assessment Use: Never. Tobacco Assessment former smoker quit 2 yrs ago Tobacco Use:. Substance Abuse Assessment Substance use: Never..Social & Psychosocial WuzjtrGougmdq04/20/2017 Alcohol Use: NeverSubstance Abuse11/28/2016 Substance use: RqlcmGjfcndl14/20/2017 Smoking tobacco use: former smoker quit 2 [...] on: 12/05/2016 10:25 EDT] Bunny Briggs MD [facility] MAGR Intraoperative Recordon 12-05-2016 MAGR Intraoperative Record MAGR Intra-Op Record Summary Primary Physician: ARIES HARO Finalized Date/Time: 12/05/16 11:52:54 Pt. Name: TAMY WALLS Cliff JaimeB./Sex: 1980 FEMALE Med Rec #: [id number] Physician: ARIES HARO Financial #: [id number] Pt. Type: D Room/Bed: / Admit/Disch: 12/05/16 [...] Role Performed Surgeon - Primary Anesthesiologist of Lock Tender Chief Operator Record Time In 12/05/16 10:37:00 12/05/16 10:37:00 12/05/16 10:37:00 Time Out 12/05/16 11:30:00 12/05/16 11:48:00 12/05/16 11:48:00 Procedure Arthroscopy Knee(Left) Arthroscopy Knee(Left) Arthroscopy Knee(Left) Last Modified By: Leslie Tolentino RN, Stephanie RN Sauer, Stephanie RN 12/05/16 11:52:02 12/05/16 11:52:02 12/05/16 11:52:02 Entry 4 Entry 5 Entry 6 Case Attendee Ro Morrison RN, Leigh-Ann CST Nikolaus, Linda M Role Performed Lock Tender Chief Operator Operations Mgr Scrub Personnel Time In 12/05/16 10:37:00 12/05/16 [...] Description Condition Warm Description Report Given To Snaa Jarvis RN Airway Maintenance Patient Status Stable Oxygen in Use? Yes Airway Device Simple mask Flow Rate 15 Last Modified By: Leslie Tolentino RN 12/05/16 11:20:09 Case Comments Finalized By: Leslie Tolentino RN Document Signatures Signed By: Leslie Tolentino RN 12/05/16 11:52 [facility] MAGR Postoperative Recordon 12-05-2016 MAGR Postoperative Record MAGR Phase II Record Summary Primary Physician: ARIES HAOR Finalized Date/Time: 12/05/16 14:50:11 Pt. Name: TAMY WALLS /Sex: 1980 FEMALE Med Rec #: [id number] Physician: ARIES HARO Financial #: [id number] Pt. Type: D Room/Bed: / Admit/Disch: 12/05/16 [...] 1320.....care assumed from Og Jarvis RN...report received 2582 - discharge instructions reviewed with patient, daughter, and grandmother. All verbalize understanding. Copy of instructions sent home with patient along with prescription for percocet......discharged per wheelchair to private auto driven by daughter for home Finalized By: Sana Jarvis RN Document Signatures Signed By: Sana Jarvis RN 12/05/16 14:50 [facility] Progress Note - Nurseon 10-2 Progress Note - Nurse Spoke with pt and informed her to be here at 9am and NPO after MN, she verbalizes understanding.[Electronical ly Signed on: 12/04/2016 09:42 EDT] Shayy Sylvester RN[Verified on: 12/04/2016 09:42 EDT] Shayy Sylvester RN [facility] Vital Signs Date Time Vital Sign Value Performing Clinician Faci lity 10-27-2022 20:03-0400 Diastolic blood pressure 76 mm[Hg] Anna Callahan MD Work Phone: [facility] 10-27-2022 20:03-0400 SaO2% (BldA) [Mass fraction] 98 % Anna Callahan MD Work Phone: [facility] 10-27-2022 20:03-0400 Systolic blood pressure 126 mm[Hg] Anna Callahan MD Work Phone: [facility] 10-27-2022 15:17-0400 Body weight 104.33 kg Anna Callahan MD Work Phone: [facility] 10-27-2022 15:15-0400 Body temperature 97.9 [degF] Anna Callahan MD Work Phone: [facility] 10-27-2022 15:15-0400 Heart rate 100 /min Anna Callahan MD Work Phone: [facility] 10-27-2022 15:15-0400 Respiratory rate 18 /min Anna Callahan MD Work Phone: [facility] Encounters Encounter Date Encounter Type Care Provider Facility Start: 10-27-2022 End: 10-27-2022 Emergency department patient visit Anna Callahan MD Work Phone: [facility] ED Comment on above: Left flank pain (Berenice oreilly Dx) Start: 04-21-2022 End: 04-22-[address] FRANCIA RODRIGUEZ . Facility:[facility] Start: 03-24-2022 End: 03-25-[address] FRANCIA RODRIGUEZ . Facility:[facility] Start: 03-19-2022 End: 03-19-[address] FRANCIA RODRIGUEZ . Facility: Start: 12-05-2016 End: 12-05-2016 Patient encounter [facility] Facility:[facility] Start: 11-29-2016 End: 11-29-2016 Patient encounter [facility] Facility:[facility] Procedures Date Procedure Procedure Detail Performing Clinician Start: 10-27-2022 Ct abdomen & pelvis w/contrast material Tyler Galarza PA-C Work Phone: Start: 10-27-2022 Urnls dip stick/tabl et reagent auto microscopy Anna Callahan MD Work Phone: Start: 10-27-2022 Comprehensive metabo lic panel Anna Callahan MD Work Phone: Plan of Treatment Date Care Activity Detail Author Start: 09-09-2022 Influenza vaccination Flu vaccine (# 1) [facility] Start: 2021 Lipid panel Lipids [facility] Start: 05-01-2011 Screening for malign ant neoplasm of cervix [facility] Start: 2002 Screening for malign ant neoplasm of cervix Pap smear [facility] Start: 2000 DTaP/Tdap/Td vaccine (1 - Tdap) DTaP/Tdap/Td vaccine (1 - Tdap) [facility] Start: 05-01-1999 Hepatitis C screening Hepatitis C sc reen [facility] Start: 1996 HIV screening HIV screen [facility] Start: 1993 Depression Screen Depression Screen [facility] Start: 1982 Varicella vaccine (1 of 2 - 2-dose childhood series) Varicella vaccine (1 of 2 - 2-dose childhood series) [facility] Start: 1981 COVID-19 Vaccine (#1) COVID-19 Vacci ne (#1) [facility] Start: 1981 Hepatitis B vaccine (1 of 3 - 3-dose series) Hepatitis B vaccine (1 of 3 - 3-dose series) [facility] End: 10-27-2022 Culture, Urine [facility] Work Phone: Comment on above: One Time for 1 Occur rences starting 10/27/2022 until 10/27/2022 Payers Date Payer Category Payer Unknown [id number] 1980 Unknown [id number] 2.16.84 [id number] 1980 Unknown [id number] 2.16.84 [id number] 1980 Unknown [id number] 2.16.84 [id number] 1980 Unknown [id number] 2.16.8 [id number] 1958 Unknown [id number] Social History Date Type Detail Facility Tobacco smoking stat [facility] Tobacco smoking consumption unknown [facility] Start: 1980 Sex Assigned At Not on file B ON [facility] Gender identity Not on file [facility] Hospital Discharge instructions 10-27-2022 Discharge InstructionsAttachments [...] cannot be sent through Care Everywhere.Flank Pain ([place])documented in this encounter [facility] Evaluation note Note Date & Type Note Facility Evaluation note Diagnosis Left flank pain- Primary Abdominal pain, unspecified site documented in this encounter [facility] Summary Purpose Family History No Family History Records FoundNo Family History Records FoundNo Family History Records Found Advance Directives No Advanced Directives Records FoundNo Advanced Directives Records FoundNo Advanced Directives Records Found Additional Source Comments INFORMATION SOURCE (unrecogn ized section and content) DATE CREATED AUTHOR 08/22/2017 [facility] DATE CREATED AUTHOR AUTHOR'S ORGANIZ ATION 04/28/2022 [facility] DATE CREATED AUTHOR AUTHOR'S ORGANIZ ATION 08/06/2023 [facility] Reason for Visit (unrecogniz ed [...] BE BASED ON THE PRIMARY CLINICAL RECORDS. [facility]. provides no warranty or guarantee of the accuracy or completeness of information in this document.
[2023-11-24 12:46] LABS: Basophils Percent Auto 0.2 % (0.2-2.0); Eosinophils Absolute Auto 0.1 10^3/uL (0.0-0.7); Eosinophils Percent Auto 0.8 % (0.9-7.0); Hemoglobin 13.9 g/dL (12.0-16.0); Immature Granulocytes Abs Auto 0.05 10^3/uL (0.00-0.03); Immature Granulocytes Pct Auto 0.4 % (0.0-0.5); Lymphocytes Absolute Auto 3.1 10^3/uL (1.2-3.8); Lymphocytes Percent Auto 24.7 % (20.5-60.0); Mean Corpuscular HGB Conc 33.1 g/dL (29.9-35.2); Mean Corpuscular Hemoglobin 31.6 pg (26.7-34.0); Mean Corpuscular Volume 95.5 fL (81.0-99.0); Mean Platelet Volume 9.2 fL (9.5-13.5); Monocytes Absolute Auto 0.7 10^3/uL (0.3-0.8); Monocytes Percent Auto 5.2 % (1.7-12.0); Neutrophils Absolute Auto 8.5 10^3/uL (1.4-6.5); Neutrophils Percent Auto 68.7 % (43.0-75.0); Platelet Count 313 10^3/uL (150-450); Red Cell Distribution Width 13.1 % (11.0-15.0); White Blood Count 12.4 10^3/uL (4.0-11.0)
[2023-11-24 12:55] LABS: Erythrocyte Sedimentation Rate 27 mm/hr (<=20)
[2023-11-24 13:49] LABS: Free T4 1.11 ng/dL (0.76-1.46)
[2023-11-24 13:51] LABS: Alanine Aminotransferase 19 U/L (14-59); Albumin Globulin Ratio 0.7; Albumin Level 2.8 g/dL (3.4-5.0); Alkaline Phosphatase 76 U/L (46-116); Amylase 45 U/L (25-115); Anion Gap 11.8; Aspartate Amino Transferase 14 U/L (15-37); BUN Creatinine Ratio 3.5; Bilirubin Total 0.2 mg/dL (0.2-1.0); C Reactive Protein 0.92 mg/dL (<=0.50); Calcium 8.4 mg/dL (8.5-10.1); Carbon Dioxide 27.6 mmol/L (21.0-32.0); Chloride 105 mmol/L (98-107); Estimated GFR (African America >60 (>=60 mL/min/1.73m^2); Estimated GFR (Non-African Ame >60 (>=60 mL/min/1.73m^2); Globulin 3.8 g/dL; Glucose 83 mg/dL (74-106); Potassium 4.4 mmol/L (3.5-5.1); Sodium 140 mmol/L (136-145); Thyroid Stimulating Hormone 1.356 uIU/mL (0.358-3.740); Total Protein 6.6 g/dL (6.4-8.2)
[2023-11-25 04:07] LABS: CA 19-9 19 U/mL (0-35)
[2023-11-25 06:10] LABS: Antistreptolysin O Ab 60.9 IU/mL (0.0-200.0)
[2023-11-25 15:09] LABS: Anti-DNA (DS) Ab Qn 2 IU/mL (0-9); Antichromatin Antibodies <0.2 AI (0.0-0.9); Antinuclear Antibodies, IFA Negative (.); RNP Antibodies <0.2 AI (0.0-0.9); Rheumatoid Factor (RF) <10.0 IU/mL (<14.0); Sjogren's Anti-SS-A <0.2 AI (0.0-0.9); Sjogren's Anti-SS-B <0.2 AI (0.0-0.9)
== END 2023-11-24 12:09 | disposition home or self-care (01) ==
LOC: LAB 12:10
PROVIDERS: PCP Family Medicine; Visit Provider Family Medicine
DX: R60.9 Edema, unspecified (principal); I50.30 Unspecified diastolic (congestive) heart failure; I11.0 Hypertensive heart disease with heart failure
CPT/HCPCS: 36415; 80053; 82150; 83690; 83880; 84439; 84443; 84550; 85025; 85652; 86038; 86060; 86140; 86301

== ENCOUNTER 2023-11-30 13:05 | Outpatient (OUT) | payer OTHER, SELFPAY ==
--- NOTE | 2023-11-27 10:13 | V.VEINS.HP ---
Varicose Veins Patient is a 43 year old female in this day Cesar Nogueira MD personally performed the services described in this documentation, as scribed by Juve Cardoso RN in my presence and it is both accurate and complete. Juve Nogueira RN, am scribing for, and in the presence of, Dr. Cesar Salcido and in the presence of the patient. . Review of Systems ROS Narrative Cesar Nogueira MD personally performed the services described in this documentation, as scribed by Juve Cardoso RN in my presence and it is both accurate and complete. Juve Nogueira RN, am scribing for, and in the presence of, Dr. Cesar Salcido and in the presence of the patient. Meds Home Medications and Allergies Home Medications ?Medication ?Instructions ?Recorded ?Confirmed ?Type tizanidine 4 mg tablet 8 mg PO .at bedtime 09/04/23 09/04/23 History triamcinolone acetonide 0.1 % applic topical BID 09/04/23 History topical cream Allergies Allergy/AdvReac Type Severity Reaction Status Date / Time hydromorphone (From Dilaudid) Allergy Severe Swelling Verified 09/04/23 20:07 of the Eye Exam Narrative Exam Narrative: Cesar Nogueira MD personally performed the services described in this documentation, as scribed by Juve Cardoso RN in my presence and it is both accurate and complete. Juve Nogueira RN, am scribing for, and in the presence of, Dr. Cesar Salcido and in the presence of the patient. Results Additional Findings Additional findings: Bilateral leg reflux u/s reveals Cesar Nogueira MD personally performed the services described in this documentation, as scribed by Juve Cardoso RN in my presence and it is both accurate and complete. Juve Nogueira RN, am scribing for, and in the presence of, Dr. Cesar Salcido and in the presence of the patient. Assessment and Plan Assessment and Plan Plan Patient to Cesar Nogueira MD personally performed the services described in this documentation, as scribed by Juve Cardoso RN in my presence and it is both accurate and complete. Juve Nogueira RN, am scribing for, and in the presence of, Dr. Cesar Salcido and in the presence of the patient.
--- NOTE | 2023-11-27 10:14 | W.VEIN ---
Discharge Plan Discharge Disposition: Home, Self-Care Discharge Medications: No Action tizanidine 4 mg tablet 8 mg PO .at bedtime triamcinolone acetonide 0.1 % cream TOPICAL BID Print Language: Burkinan
--- NOTE | 2023-11-30 10:09 | V.VEINS.HP ---
Varicose Veins Patient in this day for courtesy consult referred by Dr. Rowell for painful bilateral varicose veins. I, Cesar Salcido MD personally performed the services described in this documentation, as scribed by Christal Lima RN in my presence and it is both accurate and complete. I, Christal Lima RN, am scribing for, and in the presence of, Dr. Cesar Salcido and in the presence of the patient. Meds Home Medications and Allergies Home Medications ?Medication ?Instructions ?Recorded ?Confirmed ?Type tizanidine 4 mg tablet 8 mg PO .at bedtime 09/04/23 09/04/23 History triamcinolone acetonide 0.1 % applic topical BID 09/04/23 History topical cream Allergies Allergy/AdvReac Type Severity Reaction Status Date / Time hydromorphone (From Dilaudid) Allergy Severe Swelling Verified 09/04/23 20:07 of the Eye
--- NOTE | 2023-11-30 13:07 | VEIN_ITS ---
Patient Name: TAMY CHAPIN MR#: [id number] : 1980 Exam Date: 11/30/2023 Ordering Doctor: DR Jorge L Rowell . RADIOLOGY REPORT PROCEDURE: VC EXT VENOUS REFLUX HARSHAD LMTD COMPARISON: None. INDICATIONS: Edema R60.0 TECHNIQUE: Duplex imaging of the lower extremity to assess the deep and superficial venous system for the presence of deep or superficial venous incompetence and to document the location and severity of disease. The study includes evaluation of the great saphenous vein (GSV), anterior accessory saphenous vein (AASV) and small saphenous vein (SSV). Patient scanned in reverse Trendelenburg and standing. FINDINGS: RIGHT LOWER EXTREMITY: Saphenofemoral Junction Reflux: Yes 10.4mm 2.7 sec GSV: Diam (mm) Reflux/ Time (sec) Proximal Thigh 8.6 Yes 2.0 Mid Thigh 6.3 Yes 0.6 Distal Thigh 8.4 Yes 4.5 Prox Calf 6.1 Yes 2.5 Mid Calf 3.5 Yes 3.1 Saphenopopliteal Junction Reflux: 3.3mm Yes 1.2 SSV: Proximal Calf 3.2 Yes 0.4 Mid Calf 3.9 Yes 0.3 AASV: Proximal Thigh 6.1 Yes 1.0 Mid Thigh 6.1 Yes 0.6 Distal Thigh Thrombi: No acute or chronic thrombus. Compressibility: Normal. Flow: No significant deep venous reflux. Preforator: Distal medial lower leg 3.8 mm with 2.5s reflux. Tech Note: Thigh extension of SSV. Incompetent varicose vein mid medial thigh measures 4.3 mm with 0.9s reflux. Varicose vein mid medial calf measures 4.9 mm with 1.0s reflux. Varicose vein lateral knee measures 4.5 mm with 1.5s reflux. Varicose vein lateral anterior lower leg measures 4.1 mm with 1.2s reflux. LEFT LOWER EXTREMITY: Saphenofemoral Junction Reflux: Yes 13.4 mm 3.1 sec GSV: Diam (mm) Reflux/Time (sec) Proximal Thigh 8.2 Yes 4.7 Mid Thigh 7.5 Yes 1.9 Distal Thigh 7.0 Yes 1.4 Prox Calf 5.9 Yes 2.4 Mid Calf 3.0 Yes 2.8 Saphenopopliteal Junction Relux: 3.3 mm No SSV: Proximal Calf 3.6 No Mid Calf 4.6 Yes 0.4 AASV: Proximal Thigh 6.7 Yes 4.6 Mid Thigh 7.4 Yes 3.0 Distal Thigh Thrombi: No acute or chronic thrombus. Compressibility: Normal. Flow: Minimal deep venous reflux. Gauge And Weigh Machine Adjuster: Distal medial lower leg 3.7 mm with 0.5s reflux. Mid medial lower leg 3.3 mm with 1.4s reflux. Tech Note: Incompetent varicose vein proximal medial lower leg 4.0 mm with 2.3s reflux. Varicose vein distal medial lower leg measures 4.3 mm with 0.7s reflux. Varicose vein distal lateral thigh measures 4.9 mm with 2.3s reflux. CONCLUSION:. 1. Severe bilateral great saphenous vein venous insufficiency dilation and saphenofemoral junction reflux 2. Mild right and severe left anterior accessory saphenous vein venous insufficiency with dilatation 3. Bilateral incompetent perforating veins 4. Bilateral incompetent varicose veins Dictated by: Cesar Salcido MD on 11/30/2023 at 14:23 Approved by: Cesar Salcido MD on 11/30/2023 at 14:31
--- OUTSIDE RECORDS SUMMARY | 2023-11-30 13:09 | XMS_ITS | CCD ---
Author Organization [facility] Care Team Providers Care Put In Beat Adjuster Name Role Phone STEPANIC, ARIES C Unavailable Unavailable STEPANIC, ARIES C Unavailable Unavailable HOY FRANCIA Unavailable Unavailable Bunny Briggs Unavailable Unavailable STEPANIC, ARIES C Unavailable Unavailable STEPANIC, ARIES C Unavailable Unavailable KANU ROWELLLAS Unavailable Unavailable HOY ., DR FELDMAN Admitting [...] Unavailable HOY ., DR FELDMAN Consulting Unavailable AVON BY [place], DR MAURICIO Fraser Consulting Unavailable Unavailable Primary Care Provider UnavailANNA Elmore Attending Unavailable Francia Rowell MD Primary Care Provider [phone] JAYLEN BROWN Attending Unavailable FRANCIA ROWELL Referring Unavailable FRANCIA ROWELL Primary Care Unavailable Allergies Allergy Classification Reported Allergen(s) Allergy Type Date of Onset Reaction(s) Facility (1 source) acetaminophen / oxyCODONE; Translations: [Percocet ] Drug Allergy [facility] Repository (2 sources) HYDROmorphone; Translations: [Dilaudid] Drug Allergy [facility] Repository (1 source) egg extract Drug Allergy 7 [facility] Repository (3 sources) HYDROmorphone; Translations: [HYDROMORPHONE] Drug Allergy 8 Facial Swelling [facility] Medications Current Medications Medication Drug Class(es) Dates Sig (Normalized) Sig (Original) 1 ml erenumab-aooe 70 mg/ml auto-injector (1 source) inject 140 mg by subcutaneous injection every 30 days erenumab-aooe 70 mg/mL auto-injector Inject 140 mg under the skin every 30 (thirty) days. Active furosemide 40 mg oral tablet (1 source) Loop Diuretic Start: 11-24-2023 take 1 tablet by mouth once daily furosemide (LASIX) 40 mg tablet Take 1 tablet (40 mg total) by mouth daily. 11/24/2023 Active ibuprofen 600 mg oral tablet (3 sources) Nonsteroidal Anti-inflammatory Drug Start: 10-05-2022 End: 11-27-2023 take 1 tablet by mouth every six hours as needed for pain ibuprofen (MOTRIN) 600 mg tablet Take 1 tablet (600 mg total) by mouth every 6 (six) hours as needed for pain. 30 tablet 10/05/2022 11/27/2023 Discontinued (Therapy completed) Start: 05-29-2021 End: 11-27-2023 take 1 tablet by mouth every eight hours as needed for pain ibuprofen (ADVIL,MOTRIN) 800 mg tablet Take 1 tablet (800 mg total) by mouth every 8 (eight) hours as needed for pain. 90 tablet 05/29/2021 11/27/2023 Discontinued (Therapy completed) End: 11-27-2023 take 2 tablets by mouth every six hours as needed for pain ibuprofen (ADVIL,MOTRIN) 200 mg tablet Take 2 tablets (400 mg total) by mouth every 6 (six) hours as needed for pain. 11/27/2023 Discontinued (Therapy completed) meloxicam 15 mg oral tablet (1 source) Nonsteroidal Anti-inflammatory Drug Start: 11-02-2023 take 1 tablet by mouth in the morning meloxicam (MOBIC) 15 mg tablet Take 1 tablet (15 mg total) by mouth in the morning. 11/02/2023 Active metoprolol tartrate 50 mg oral tablet (2 sources) beta-Adrenergic Carlos take 1 tablet by mouth in the morning, then take 1 tablet by mouth at bedtime metoprolol tartrate (LOPRESSOR) 50 mg tablet Take 1 tablet (50 mg total) by mouth in the morning and 1 tablet (50 mg total) before bedtime. Active take 1 tablet by mouth once nadir y metoprolol succinate (TOPROL XL) 50 MG extended release tablet Take 1 tablet by mouth daily 0 Active pantoprazole 40 mg delayed release oral tablet (1 source) Proton Pump Inhibitor Start: 11-02-2023 take 1 tablet by mouth once daily before breakfast pantoprazole (PROTONIX) 40 mg EC tablet Take 1 tablet (40 mg total) by mouth every morning before breakfast. 11/02/2023 Active microencapsulated potassium chloride 20 meq extended release oral tablet (1 source) Start: 11-13-2023 take 1 tablet by mouth in the morning, then take 1 tablet by mouth at bedtime, then take 1 tablet by mouth twice daily at mealtime KLOR-CON M20 20 mEq CR tablet Take 1 tablet (20 mEq total) by mouth in the morning and 1 tablet (20 mEq total) before bedtime. TAKE 1 BY MOUTH TWICE DAILY WITH FOOD. 11/13/2023 Active promethazine hydrochloride 25 mg oral tablet (1 source) Phenothiazine Start: 10-27-2023 take 1 tablet by mouth once daily as needed for nausea promethazine (PHENERGAN) 25 mg tablet Take 1 tablet (25 mg total) by mouth daily as needed for nausea. 10/27/2023 Active rimegepant 75 mg disintegrating oral tablet (1 source) rimegepant (NURTEC ODT) 75 mg tablet,disintegra ting Dissolve on tongue as needed. Active Rimegepant Sulfate (NURTEC PO) (1 source) Rimegepant Sulfate (NURTEC PO) Take by mouth 0 Active tiZANidine 4 mg oral tablet (1 source) Central alpha-2 Adrenergic Agonist Start: 05-06-2021 End: 11-27-2023 take 1 tablet by mouth every six hours as needed tiZANidine (ZANAFLEX) 4 mg tablet Take 1 tablet (4 mg total) by mouth every 6 (six) hours as needed. 05/06/2021 11/27/2023 Discontinued (Therapy completed) triamcinolone acetonide 1 mg/ml topical cream (1 source) Corticosteroid Start: 04-09-2021 triamcinolone (KENALOG) 0.1 % cream Apply 1 Application topically as needed. 04/09/2021 Active Completed/Discontinued Medications Medication Drug Class(es) Dates Sig (Normalized) Sig (Original) iopamidol (ISOVUE-370) 76 % injection 75 mL (1 source) Start: 10-27-2022 End: 10-27-2022 iopamidol (ISOVUE-370) 76 % injection 75 mL 1 ml ketorolac tromethamine 15 mg/ml cartridge (1 source) Nonsteroidal Anti-inflammatory Drug, Cyclooxygenase Inhibitor Start: 10-27-2022 End: 10-27-2022 ketorolac (TORADOL) injection 15 mg 2 ml ondansetron 2 mg/ml injection (2 sources) Serotonin-3 Receptor Antagonist Start: 10-27-2022 End: 10-27-2022 ondansetron (ZOFRAN) injection 4 mg Start: 06-24-2021 take 1 tablet by page th every eight hours as needed for nausea ondansetron (ZOFRAN) 4 mg tablet Indications: Postoperative nausea Take 1 tablet (4 mg total) by mouth every 8 (eight) hours as needed for nausea or vomiting. 30 tablet 06/24/2021 Active 50 ml sodium chloride 9 mg/m l injection (1 source) Start: 10-27-2022 End: 10-27-2022 sodium chloride 0.9 % bolus 1,000 mL Problems Active Problems Problem Classification Problem Date Documented Date Episodic/Chronic Cardiac dysrhythmias (4 sources) Palpitations; Translations: [PALPITATIONS] Onset: 04-21-2022 Episodic Esophageal disorders (2 sources) Gastroesophageal reflux disease; Translations: [Gastro-esophageal reflux disease without esophagitis] Onset: 11-27-2023 11-27-2023 Chronic Headache; including migraine (1 source) Migraine without aura, not intractable, without status migrainosus; Translations: [MIGRAINE W/O AURA NOT INTRCT W/O SE] Onset: 04-28-2022 Chronic Nausea and vomiting (4 sources) Nausea with vomiting, unspecified; Translations: [NAUSEA WITH VOMITING UNSPECIFIED] Onset: 03-24-2022 Episodic Noninfectious gastroenteritis (4 sources) Noninfective gastroenteritis and colitis, unspecified; Translations: [NONINFECTIVE GE AND COLITIS UNS] Onset: 03-19-2022 Episodic Other nutritional; endocrine; and metabolic disorders (4 sources) Obese class II; Translations: [Obesity, Class II, BMI 35-39.9] 11-27-2023 Chronic Unclassified (1 source) Obesity, class 2; Translations: [Obesity, class 2] Onset: 11-27-2023 Unclassified (1 source) New Patient Onset: 11-27-2023 Past or Other Problems Problem Classification Problem Date Documented Da te Episodic/Chronic Abdominal pain (3 sources) Unspecified abdominal pain; Translations: [Left flank pain] Onset: 03-28-2022 10-27-2022 Episodic Mood disorders (1 source) Mood disorders Onset: 04-15-2022 04-15-2022 Nonmalignant breast conditions (2 sources) Cyst of right breast; Translations: [Solitary cyst of right breast] Onset: 03-10-2022 03-10-2022 Episodic Other and unspecified benign neoplasm (1 source) Pituitary microadenoma; Translations: [Benign neoplasm of pituitary gland] Onset: 05-22-2020 05-13-2021 Episodic Other connective tissue disease (1 source) Bicipital tendinitis, right shoulder; Translations: [Bicipital tenosynovitis] Onset: 05-02-2021 05-02-2021 Episodic Residual codes; unclassified (1 source) Family history of breast cancer; Translations: [Family history of malignant neoplasm of breast] Onset: 03-04-2022 03-04-2022 Episodic Sprains and strains (2 sources) Strain of muscle(s) and tendon(s) of the rotator cuff of right shoulder, initial encounter; Translations: [Rotator cuff (capsule) sprain] Onset: 03-11-2021 05-02-2021 Episodic Results Test Name Value Interpretation Reference Range Facility CBC with Diffon 08-05-2023 Abs. Basophil <0.03 Normal 0.00-0.20 [facility] Comment on above: Performed By: #### T DANIEL, CDP #### [address] [place] [address] Tunnel Miner: Mauricio Irby MD #### LIPR, FT3, INSU, T4, FE, GLYHGB #### [facility] [address] [place] [address] Tunnel Miner: Casa Medrano MD Abs.Imm.Granulocy te 0.05 k/uL Normal 0.00-0.[address] [facility] Comment on above: Performed By: #### T DANIEL, CDP #### [facility] [address] [place] [id number] Tunnel Miner: Mauricio Irby MD #### LIPR, FT3, INSU, T4, FE, GLYHGB #### [address] [id number] Tunnel Miner: Casa Medrano MD Abs.Neutrophil (Seg) 7.71 k/uL Normal 1.50-8.[address] [facility] Comment on above: Performed By: #### T SH, CDP #### [address] [place] [id number] Tunnel Miner: Mauricio Irby MD #### LIPR, FT3, INSU, T4, FE, GLYHGB #### [address] [id number] Tunnel Miner: Casa Medrano MD Basophils/100 WBC (Bld) 0 % Normal 0-[address] [facility] Comment on above: Performed By: #### T SH, CDP #### [address] [place] [id number] Tunnel Miner: Mauricio Irby MD #### LIPR, FT3, INSU, T4, FE, GLYHGB #### [address] [address] Tunnel Miner: Casa Medrano MD Eosinophils (Bld) [#/Vol] 0.10 10*3/uL Normal 0.00-0.[address] [facility] Comment on above: Performed By: #### T SH, CDP #### [address] [place] [address] Tunnel Miner: Mauricio Irby MD #### LIPR, FT3, INSU, T4, FE, GLYHGB #### [address] [id number] Tunnel Miner: Casa Medrano MD Eosinophils/100 WBC (Bld) 1 % Normal 1-[address] [facility] Comment on above: Performed By: #### T SH, CDP #### [address] [place] [id number] Tunnel Miner: Mauricio Irby MD #### LIPR, FT3, INSU, T4, FE, GLYHGB #### [address] [id number] Tunnel Miner: Casa Medrano MD Erythrocyte distribution width (RBC) [Ratio] 12.5 % Normal 11.8-14.[address] [facility] Comment on above: Performed By: #### T SH, CDP #### [address] [place] [id number] Tunnel Miner: Mauricio Irby MD #### LIPR, FT3, INSU, T4, FE, GLYHGB #### [place] [id number] Tunnel Miner: Casa Medrano MD Hematocrit (Bld) [Volume fraction] 45.1 % Normal 36.3-47.[address] [facility] Comment on above: Performed By: #### T SH, CDP #### [address] [place] [id number] Tunnel Miner: Mauricio Irby MD #### LIPR, FT3, INSU, T4, FE, GLYHGB #### [address] [id number] Tunnel Miner: Casa Medrano MD Hemoglobin (Bld) [Mass/Vol] 15.2 g/dL High 11.9-15.[address] [facility] Comment on above: Performed By: #### T SH, CDP #### [address] [place] [address] Tunnel Miner: Mauricio Irby MD #### LIPR, FT3, INSU, T4, FE, GLYHGB #### [address] [id number] Tunnel Miner: Casa Medrano MD Immature granulocytes/100 WBC (Bld) 1 % High [address] [facility] Comment on above: Performed By: #### T SH, CDP #### [facility] [address] [place], [place] [id number] Tunnel Miner: Mauricio Irby MD #### LIPR, FT3, INSU, T4, FE, GLYHGB #### [place] [address] [place], [place] [id number] Tunnel Miner: Casa Medrano MD Lymphocytes (Bld) [#/Vol] 2.55 10*3/uL Normal 1.10-3.[address] [facility] Comment on above: Performed By: #### T SH, CDP #### [facility] [address] [place] [id number] Tunnel Miner: Mauricio Irby MD #### LIPR, FT3, INSU, T4, FE, GLYHGB #### [place] [address] [place] [address] Tunnel Miner: Casa Medrano MD Lymphocytes/100 WBC (Bld) 23 % Low 24-[address] [facility] Comment on above: Performed By: #### T SH, CDP #### [facility] [address] [place], [place] [id number] Tunnel Miner: Mauricio Irby MD #### LIPR, FT3, INSU, T4, FE, GLYHGB #### [place] [address] [place], [place] [id number] Tunnel Miner: Casa Medrano MD MCH (RBC) [Entitic mass] 31.6 pg Normal 25.2-33.[address] [facility] Comment on above: Performed By: #### T SH, CDP #### [facility] [address] [place], [place] [id number] Tunnel Miner: Mauricio Irby MD #### LIPR, FT3, INSU, T4, FE, GLYHGB #### [place] [address] Tunnel Miner: Casa Medrano MD MCHC (RBC) [Mass/Vol] 33.7 g/dL Normal 28.4-34.[address] [facility] Comment on above: Performed By: #### T SH, CDP #### [address] [place] [id number] ( Tunnel Miner: Mauricio Irby MD #### LIPR, FT3, INSU, T4, FE, GLYHGB #### [place] [address] Tunnel Miner: Casa Medrano MD MCV (RBC) [Entitic vol] 93.8 fL Normal 82.6-102.[address] [facility] Comment on above: Performed By: #### T SH, CDP #### [address] [place] [id number] ( Tunnel Miner: Mauricio Irby MD #### LIPR, FT3, INSU, T4, FE, GLYHGB #### [place] [address] Tunnel Miner: Casa Medrano MD Monocytes (Bld) [#/Vol] 0.60 10*3/uL Normal 0.10-1.[address] [facility] Comment on above: Performed By: #### T SH, CDP #### [address] [place] [id number] Tunnel Miner: Mauricio Irby MD #### LIPR, FT3, INSU, T4, FE, GLYHGB #### [place] [address] Tunnel Miner: Casa Medrano MD Monocytes/100 WBC (Bld) 5 % Normal 3-[address] [facility] Comment on above: Performed By: #### T SH, CDP #### [address] [place], [place] [id number] Tunnel Miner: Mauricio Irby MD #### LIPR, FT3, INSU, T4, FE, GLYHGB #### [place] [address] [place], [place] [id number] Tunnel Miner: Casa Medrano MD Neutrophil (Seg) 70 % High 36-65 [facility] Comment on above: Performed By: #### T SH, CDP #### [facility] [address] [place] [address] [place], [place] [phone] Tunnel Miner: Mauricio Irby MD #### LIPR, FT3, INSU, T4, FE, GLYHGB #### [address] [id number] Tunnel Miner: Casa Medrano MD NRBC Automated 0.0 per 100 WBC Normal 0.[address] [facility] Comment on above: Performed By: #### T SH, CDP #### [address] [place], [place] [id number] Tunnel Miner: Mauricio Irby MD #### LIPR, FT3, INSU, T4, FE, GLYHGB #### [address] [id number] Tunnel Miner: Casa Medrano MD Platelet mean volume (Bld) [Entitic vol] 9.2 fL Normal 8.1-13.[address] [facility] Comment on above: Performed By: #### T SH, CDP #### [address] [place] [address] Tunnel Miner: Mauricio Irby MD #### LIPR, FT3, INSU, T4, FE, GLYHGB #### [address] [id number] Tunnel Miner: Casa Medrano MD Platelets (Bld) [#/Vol] 297 10*3/uL Normal 138-[address] [facility] Comment on above: Performed By: #### T SH, CDP #### [facility] [address] [place] [address] Dr[place] [phone] Tunnel Miner: Mauricio Irby MD #### LIPR, FT3, INSU, T4, FE, GLYHGB #### [place] [address] [place], [place] [id number] Tunnel Miner: Casa Medrano MD RBC (Bld) [#/Vol] 4.81 10*6/uL Normal 3.95-5.[address] [facility] Comment on above: Performed By: #### T SH, CDP #### [address] [place] [phone] Tunnel Miner: Mauricio Irby MD #### LIPR, FT3, INSU, T4, FE, GLYHGB #### [address] [address] Tunnel Miner: Casa Medrano MD WBC (Bld) [#/Vol] 11.0 10*3/uL Normal 3.5-11.[address] [facility] Comment on above: Performed By: #### T SH, CDP #### [address] [place], [facility] Tunnel Miner: Mauricio Irby MD #### LIPR, FT3, INSU, T4, FE, GLYHGB #### [address] [address] Tunnel Miner: Casa Medrano MD Hemoglobin A1Con 08-05-2023 Glucose [Mass/Vol] 100 mg/dL Normal [facility] Comment on above: Result Comment: The ADA and AACC recommend providing the estimated average glucose result to permit better patient understanding of their HBA1c result. Performed By: #### C DP, LIP, CP #### [address] [place] [id number] Tunnel Miner: Mauricio Irby MD HbA1c (Bld) [Mass fraction] 5.1 % Normal 4.0-6.[address] [facility] Comment on above: Performed By: #### C JANIE RAMIREZ, CP #### [facility] [address] [place] [address] Tunnel Miner: Mauricio Irby MD Insulinon 08-05-2023 Insulin 19.2 mU/L Normal [facility] Comment on above: Performed By: #### T SH, CDP #### [facility] [address] [place] [address] Tunnel Miner: Mauricio Irby MD #### LIPR, FT3, INSU, T4, FE, GLYHGB #### [facility] [address] [place], [place] [id number] Tunnel Miner: Casa Medrano MD Reference Range Normal [facility] Comment on above: Result Comment: Fast in.6-24.9 30 min: 20-112 60 min: 29-88 90 min: 26-84 120 min: 22-79 Performed By: #### T SH, CDP #### [address] [place] [address] Tunnel Miner: Mauricio Irby MD #### LIPR, FT3, INSU, T4, FE, GLYHGB #### [address] [id number] Tunnel Miner: Casa Medrano MD Ironon 08-05-2023 Iron [Mass/Vol] 68 ug/dL Normal 37-145 [facility] Comment on above: Performed By: #### C JANIE RAMIREZ, CP #### [facility] [address] [place] [address] Tunnel Miner: Mauricio Irby MD Lipid Profileon 08-05-2023 Cholesterol [Mass/Vol] 171 mg/dL Normal 0-[address] [facility] Comment on above: Result Comment: Cholesterol Guidelines: <200 Desirable 200-240 Borderline >240 Undesirable Performed By: #### T SH, CDP #### [address] [place] [address] Tunnel Miner: Mauricio Irby MD #### LIPR, FT3, INSU, T4, FE, GLYHGB #### [place] [address] [place], [place] 7[address] Tunnel Miner: Casa Medrano MD Cholesterol in HDL [Mass/Vol] 52 mg/dL Normal >[address] [facility] Comment on above: Result Comment: HDL Guidelines: <40 Undesirable 40-59 Borderline >59 Desirable Performed By: #### T SH, CDP #### [address] [place] [address] Tunnel Miner: Mauricio Irby MD #### LIPR, FT3, INSU, T4, FE, GLYHGB #### [address] [id number] Tunnel Miner: Casa Medrano MD Cholesterol in LDL [Mass/Vol] 100 mg/dL Normal 0-[address] [facility] Comment on above: Result Comment: LDL Guidelines: <100 Desirable 100-129 Near to/above Desirable 130-159 Borderline >159 Undesirable Direct (measured) LDL and calculated LDL are not interchangeable tests. Performed By: #### T SH, CDP #### [address] [place] [address] Tunnel Miner: Mauricio Irby MD #### LIPR, FT3, INSU, T4, FE, GLYHGB #### [place] [address] [place], [place] [id number] Tunnel Miner: Casa Medrano MD Cholesterol in VLDL [Mass/Vol] 19 mg/dL Normal [facility] Comment on above: Performed By: #### T SH, CDP #### [address] [place] [address] Tunnel Miner: Mauricio Irby MD #### LIPR, FT3, INSU, T4, FE, GLYHGB #### [place] [address] [place] [address] Tunnel Miner: Casa Medrano MD Cholesterol.total /Cholesterol in HDL [Mass ratio] 3.0 {ratio} Normal [facility] Comment on above: Performed By: #### T SH, CDP #### [facility] [address] [place] [address] Tunnel Miner: Mauricio Irby MD #### LIPR, FT3, INSU, T4, FE, GLYHGB #### [place] [address] [place], [place] [id number] Tunnel Miner: Casa Medrano MD Triglyceride [Mass/Vol] 93 mg/dL Normal <[address] [facility] Comment on above: Result Comment: Triglyceride Guidelines: <150 Desirable 150-199 Borderline 200-499 High >499 Very high Based on AHA Guidelines for fasting triglyceride, November 2011. Performed By: #### T SH, CDP #### [address] [place] [address] Tunnel Miner: Mauricio Irby MD #### LIPR, FT3, INSU, T4, FE, GLYHGB #### [place] [address] [place], [place] [id number] Tunnel Miner: Casa Medrano MD T3, Freeon 08-05-2023 Free T3 [Mass/Vol] 2.90 pg/mL Normal 2.00-4.[address] [facility] Comment on above: Performed By: #### C DP, LIP, CP #### [facility] [address] [place] [address] Tunnel Miner: Mauricio Irby MD Thyroid Stim. Horm.on 2023 Thyroid Stim. Horm. 1.33 uIU/mL Normal 0.30-5.[address] [facility] Comment on above: Performed By: #### T SH, CDP #### [facility] [address] [place] [address] Tunnel Miner: Mauricio Irby MD #### LIPR, FT3, INSU, T4, FE, GLYHGB #### [facility] [address] [place] [address] Tunnel Miner: Casa Medrano MD Thyroxine T4on 08-05-2023 T4 [Mass/Vol] 9.9 ug/dL Normal 4.5-11.7 [facility] Comment on above: Performed By: #### T SH, CDP #### [facility] [address] [place] [address] Tunnel Miner: Mauricio Irby MD #### LIPR, FT3, INSU, T4, FE, GLYHGB #### [place] [address] [place] [address] Tunnel Miner: Casa Medrano MD Cult,Urineon 10-28-2022 Cult,Urine Specimen Description .CLEAN CATCH URINE Culture NO SIGNIFICANT GROWTH Report Status FINAL 10/28/[address] [facility] Comment on above: Performed By: #### C DP, LIP, CP #### [address] [place] [address] Tunnel Miner: Mauricio Irby MD CBC with Auto Differentialon 10-27-2022 Basophils (Bld) [#/Vol] 0.03 10*3/uL [facility] Basophils/100 WBC (Bld) 0 % 0 - 2 % [facility] Eosinophils (Bld) [#/Vol] 0.07 10*3/uL [facility] Eosinophils/100 WBC (Bld) 1 % 1 - 4 % [facility] Erythrocyte distribution width (RBC) [Ratio] 12.6 % 11.8 - 14.4 % [facility] Hematocrit (Bld) [Volume fraction] 43.7 % 36.3 - 47.1 % [facility] Hemoglobin (Bld) [Mass/Vol] 14.3 g/dL 11.9 - 15.1 g/dL [facility] Immature granulocytes (Bld) [#/Vol] 0.04 10*3/uL [facility] Immature granulocytes/100 WBC (Bld) 0 % 0 [facility] Interpretation and review of laboratory results Abnormal [facility] Lymphocytes/100 WBC (Bld) 27 % 24 - 43 % [facility] Lymphocytes/100 WBC (Bld) 2.50 % [facility] MCH (RBC) [Entitic mass] 31.2 pg 25.2 - 33.5 pg [facility] MCHC (RBC) [Mass/Vol] 32.7 g/dL 28.4 - 34.8 g/dL [facility] MCV (RBC) [Entitic vol] 95.4 fL 82.6 - 102.9 fL [facility] Monocytes/100 WBC (Bld) 5 % 3 - 12 % [facility] Monocytes/100 WBC (Bld) 0.44 % [facility] Neutrophils/100 WBC (Bld) 67 % High 36 - 65 % [facility] Nucleated RBC/100 WBC (Bld) [Ratio] 0.0 % 0.0 per 100 WBC [facility] Platelet mean volume (Bld) [Entitic vol] 8.9 fL 8.1 - 13.5 fL [facility] Platelets (Bld) [#/Vol] 264 10*3/uL [facility] RBC (Bld) [#/Vol] 4.58 10*6/uL 3.95 - 5.1 1 m/uL [facility] Segmented neutrophils/100 WBC (Bld) 6.32 % [facility] WBC other (Bld) [#/Vol] 9.4 [facility] CBC with Diffon 10-27-2022 Abs. Basophil 0.03 k/uL Normal 0.00-0.20 [facility] Comment on above: Performed By: #### C DP, LIP, CP #### [facility] [address] [place] [address] Tunnel Miner: Mauricio Irby MD Abs.Imm.Granulocy te 0.04 k/uL Normal 0.00-0.[address] [facility] Comment on above: Performed By: #### C DP, LIP, CP #### [address] [place] [address] Tunnel Miner: Mauricio Irby MD Abs.Neutrophil (Seg) 6.32 k/uL Normal 1.50-8.[address] [facility] Comment on above: Performed By: #### C DP, LIP, CP #### [address] [place] [address] Tunnel Miner: Mauricio Irby MD Basophils/100 WBC (Bld) 0 % Normal 0-[address] [facility] Comment on above: Performed By: #### C DP LIP, CP #### [address] [place] [address] Tunnel Miner: Mauricio Irby MD Eosinophils (Bld) [#/Vol] 0.07 10*3/uL Normal 0.00-0.[address] [facility] Comment on above: Performed By: #### C DP LIP, CP #### [address] [place] [address] Tunnel [employer]er: Mauricio Irby MD Eosinophils/100 WBC (Bld) 1 % Normal 1-[address] [facility] Comment on above: Performed By: #### C DP LIP, CP #### [address] [place], [place] [address] Tunnel [employer]er: Mauricio Irby MD Erythrocyte distribution width (RBC) [Ratio] 12.6 % Normal 11.8-14.[address] [facility] Comment on above: Performed By: #### C DP LIP, CP #### [address] [place] [id number] Tunnel Miner: Mauricio Irby MD Hematocrit (Bld) [Volume fraction] 43.7 % Normal 36.3-47.[address] [facility] Comment on above: Performed By: #### C DP, LIP, CP #### [address] [place], [facility]83 T[employer]er: Mauricio Irby MD Hemoglobin (Bld) [Mass/Vol] 14.3 g/dL Normal 11.9-15.[address] [facility] Comment on above: Performed By: #### C DP, LIP, CP #### [address] [place], [place] [address] T[employer]er: Mauricio Irby MD Immature granulocytes/100 WBC (Bld) 0 % Normal [address] [facility] Comment on above: Performed By: #### C DP, LIP, CP #### [address] [place], [place] [address] T[employer] Miner: Mauricio Irby MD Lymphocytes (Bld) [#/Vol] 2.50 10*3/uL Normal 1.10-3.[address] [facility] Comment on above: Performed By: #### C DP, LIP, CP #### [address] [place], [place] [address] T[employer]er: Mauricio Irby MD Lymphocytes/100 WBC (Bld) 27 % Normal 24-[address] [facility] Comment on above: Performed By: #### C DP, LIP, CP #### [address] [place], [place] [address] T[employer] Miner: Mauricio Irby MD MCH (RBC) [Entitic mass] 31.2 pg Normal 25.2-33.[address] [facility] Comment on above: Performed By: #### C DP, LIP, CP #### [address] [place], [facility]83 [employer]er: Mauricio Irby MD MCHC (RBC) [Mass/Vol] 32.7 g/dL Normal 28.4-34.[address] [facility] Comment on above: Performed By: #### C DP, LIP, CP #### [facility] [address] [place], [place] [phone] T[employer]er: Mauricio Irby MD MCV (RBC) [Entitic vol] 95.4 fL Normal 82.6-102.[address] [facility] Comment on above: Performed By: #### C DP LIP, CP #### [facility] [address] [place], [place] [id number] Tunnel [employer]er: Mauricio Irby MD Monocytes (Bld) [#/Vol] 0.44 10*3/uL Normal 0.10-1.[address] [facility] Comment on above: Performed By: #### C JAMES LIP, CP #### [address] [place], [facility]83 [employer]er: Mauricio Irby MD Monocytes/100 WBC (Bld) 5 % Normal 3-[address] [facility] Comment on above: Performed By: #### C DP LIP, CP #### [address] [place], [place] [phone] Tunnel [employer]er: Mauricio Irby MD Neutrophil (Seg) 67 % High 36-65 [facility] Comment on above: Performed By: #### C JAMES LIP, CP #### [address] [place], [place] [id number] Tunnel [employer]er: Mauricio Irby MD NRBC Automated 0.0 per 100 WBC Normal 0.[address] [facility] Comment on above: Performed By: #### C DP LIP, CP #### [address] [place], [place] [phone] [employer]er: Mauricio Irby MD Platelet mean volume (Bld) [Entitic vol] 8.9 fL Normal 8.1-13.[address] [facility] Comment on above: Performed By: #### C DP LIP, CP #### [address] [place], [facility]83 T[employer]er: Mauricio Irby MD Platelets (Bld) [#/Vol] 264 10*3/uL Normal 138-[address] [facility] Comment on above: Performed By: #### C JANIE RAMIREZ, CP #### [facility] [address] [place] [address] Tunnel Miner: Mauricio Irby MD RBC (Bld) [#/Vol] 4.58 10*6/uL Normal 3.95-5.[address] [facility] Comment on above: Performed By: #### C JANIE RAMIREZ, CP #### [facility] [address] [place] [address] Tunnel Miner: Mauricio Irby MD WBC (Bld) [#/Vol] 9.4 10*3/uL Normal 3.5-11.[address] [facility] Comment on above: Performed By: #### C JANIE RAMIREZ, CP #### [facility] [address] [place] [address] Tunnel Miner: Mauricio Irby MD CT ABDOMEN PELVIS W [...] Ronni Vaughn MD 10/27/22 Final result Normal [facility] CT ABDOMEN PELVIS W IV CONTR AST Additional Contrast? Noneon 10-27-2022 No acute abnormality identified. [facility] EXAMINATION: CT OF [...] findings do not require dedicated imaging follow-up. [facility] Ronni Vaughn MD [...] imaging follow-up. IMPRESSION: No acute abnormality identified. [facility] Radiology Study observation (narrative) [facility] CT ABDOMEN PELVIS W IV CONTR AST Additional Contrast? NoneOrdered By: Ronni Vaughn on 10-27-2022 [facility] Work Phone: Comp Metabolic Profon 2022 Albumin [Mass/Vol] 4.0 g/dL Normal 3.5-5.[address] [facility] Comment on above: Performed By: #### C JANIE RAMIREZ, CP #### [facility] [address] [place] [address] [address]. [place], [place] [phone] Tunnel Miner: Mauricio Irby MD Albumin/Glob Ratio 1.1 Normal 1.0-2.[address] [facility] Comment on above: Performed By: #### C JANIE RAMIREZ, CP #### [address] [place], [place] [phone] Tunnel Miner: Mauricio Irby MD Alkaline Phos 82 U/L Normal 35-104 [facility] Comment on above: Performed By: #### C JANIE RAMIREZ, CP #### [address] [place], [place] [phone] Tunnel Miner: Mauricio Irby MD ALT [Catalytic activity/Vol] 11 U/L Normal 5-[address] [facility] Comment on above: Performed By: #### C JANIE RAMIREZ, CP #### [address] [place] [address] Tunnel Miner: Mauricio Irby MD Anion gap [Moles/Vol] 8 mmol/L Low 9-[address] [facility] Comment on above: Performed By: #### C DP, LIP, CP #### [facility] [address] [place], [place] [phone] Tunnel Miner: Mauricio Irby MD AST [Catalytic activity/Vol] 12 U/L Normal <[address] [facility] Comment on above: Performed By: #### C DP, LIP, CP #### [facility] [address] [place], [place] [phone] Tunnel Miner: Mauricio Irby MD Bilirubin [Mass/Vol] 0.2 mg/dL Low 0.3-1.[address] [facility] Comment on above: Performed By: #### C DP, LIP, CP #### [facility] [address] [place], [place] [phone] Tunnel Miner: Mauricio Irby MD BUN/CRE Ratio 11 Normal 9-20 [facility] Comment on above: Performed By: #### C DP, LIP, CP #### [address] [place], [place] [phone] Tunnel Miner: Mauricio Irby MD Calcium [Mass/Vol] 9.2 mg/dL Normal 8.6-10.[address] [facility] Comment on above: Performed By: #### C DP, LIP, CP #### [facility] [address] [place], [place] [phone] Tunnel Miner: Mauricio Irby MD Chloride [Moles/Vol] 102 mmol/L Normal 98-[address] [facility] Comment on above: Performed By: #### C DP, LIP, CP #### [facility] [address] [place], [place] [id number] Tunnel Miner: Mauricio Irby MD CO2 [Moles/Vol] 27 mmol/L Normal 20-31 [facility] Comment on above: Performed By: #### C DP, LIP, CP #### [facility] [address] [place], [place] [phone] Tunnel Miner: Mauricio Irby MD Creatinine [Mass/Vol] 0.7 mg/dL Normal 0.5-0.[address] [facility] Comment on above: Performed By: #### C JANIE RAMIREZ, CP #### [facility] [address] [place] [address] Tunnel Miner: Mauricio Irby MD GFR/1.73 sq M.predicted among non-blacks MDRD (S/P/Bld) [Vol rate/Area] mL/min/{1.73_m2} Normal >[address] [facility] Comment on above: Result Comment: These [...] By: #### C JANIE RAMIREZ, CP #### [facility] [address] [place] [address] [place] [address] Tunnel Miner: Mauricio Irby MD Glucose [Mass/Vol] 134 mg/dL High 70-[address] [facility] Comment on above: Performed By: #### C JANIE RAMIREZ, CP #### [address] [place] [address] Tunnel Miner: Mauricio Irby MD Potassium [Moles/Vol] 4.1 mmol/L Normal 3.7-5.[address] [facility] Comment on above: Performed By: #### C JANIE RAMIREZ, CP #### [facility] [address] [place] [address] [place] [address] Tunnel Miner: Mauricio Irby MD Protein [Mass/Vol] 7.7 g/dL Normal 6.4-8.[address] [facility] Comment on above: Performed By: #### C JANIE RAMIREZ, CP #### [address] [place] [address] Tunnel Miner: Mauricio Irby MD Sodium [Moles/Vol] 137 mmol/L Normal 135-[address] [facility] Comment on above: Performed By: #### C JANIE RAMIREZ, CP #### [facility] [address] [place] [address] Tunnel Miner: Mauricio Irby MD Urea nitrogen [Mass/Vol] 8 mg/dL Normal 6-[address] [facility] Comment on above: Performed By: #### C JANIE RAMIREZ, CP #### [facility] [address] [place] [address] Tunnel Miner: Mauricio Irby MD Comprehensive Metabolic Pane [facility] 10-27-2022 Albumin [Mass/Vol] 4.0 g/dL 3.5 - 5.2 g/dL [facility] Albumin/Globulin [Mass ratio] 1.1 {ratio} 1.0 - 2.5 [facility] ALP [Catalytic activity/Vol] 82 U/L 35 - 104 U/L [facility] ALT [Catalytic activity/Vol] 11 U/L 5 - 33 U/L [facility] Anion gap [Moles/Vol] 8 mmol/L Low 9 - 17 mmol/L [facility] AST [Catalytic activity/Vol] 12 U/L NINF - 32 U/L [facility] Bilirubin [Mass/Vol] 0.2 mg/dL Low 0.3 - 1.2 mg/dL [facility] Calcium [Mass/Vol] 9.2 mg/dL 8.6 - 10.4 mg/dL [facility] Chloride [Moles/Vol] 102 mmol/L 98 - 107 mmol/L [facility] CO2 [Moles/Vol] 27 mmol/L 20 - 31 mmol/L [facility] Creatinine [Mass/Vol] 0.7 mg/dL 0.5 - 0.9 mg/dL [facility] GFR/1.73 sq M.predicted MDRD (S/P/Bld) [Vol rate/Area] - PINF [facility] Comment on above: These results are [...] 134 mg/dL High 70 - 99 mg/dL [facility] Potassium [Moles/Vol] 4.1 mmol/L 3.7 - 5.3 mmol/L [facility] Protein [Mass/Vol] 7.7 g/dL 6.4 - 8.3 g/dL [facility] Sodium [Moles/Vol] 137 mmol/L 135 - 144 mmol/L [facility] Urea nitrogen [Mass/Vol] 8 mg/dL 6 - 20 mg/dL [facility] Urea nitrogen/Creatini ne [Mass ratio] 11 mg/mg 9 - 20 [facility] Lactic Acidon 10-27-2022 Lactate (BldV) [Moles/Vol] 1.6 mmol/L 0.5 - 2.2 mmol/L [facility] Lactate [Moles/Vol] 1.6 mmol/L Normal 0.5-2.[address] [facility] Comment on above: Performed By: #### C JANIE RAMIREZ CP #### [facility] [address] [place] [address] Tunnel Miner: Mauricio Irby MD Lipaseon 10-27-2022 Lipase [Catalytic activity/Vol] 67 U/L High 13 - 60 U/L [facility] Lipase [Catalytic activity/Vol] 67 U/L High 13-[address] [facility] Comment on above: Performed By: #### C JANIE RAMIREZ CP #### [facility] [address] [place] [address] Tunnel Miner: Mauricio Irby MD No Panel Informationon 10-27 Interpretation and review of laboratory results Abnormal [facility] Urinalysis w/ Microon 2022 Bacteria 1+ Abnormal NONE [facility] Comment on above: Performed By: #### U AMIC #### [facility] [address] [place] [address] Tunnel Miner: Mauricio Irby MD Bilirubin, SemiQt,Ur Negative Normal NEG [facility] Comment on above: Performed By: #### U AMIC #### [facility] [address] [place], [place] [phone] Tunnel Miner: Mauricio Irby MD Blood, Urine Negative Normal NEG [facility] Comment on above: Performed By: #### U AMIC #### [facility] [address] [place] [address] Dr. [place], [place] [phone] Tunnel Miner: Mauricio Irby MD Clarity (U) Clear Normal CLEAR [facility] Comment on above: Performed By: #### U AMIC #### [facility] [address] [place], [place] [phone] Tunnel Miner: Mauricio Irby MD Color (U) Yellow Normal YEL [facility] Comment on above: Performed By: #### U AMIC #### [facility] [address] [place] [address] Dr. [place], [place] [phone] Tunnel Miner: Mauricio Irby MD Epithelial cells LM Ql (Urine sed) 10 TO 20 Normal 0-[address] [facility] Comment on above: Performed By: #### U AMIC #### [facility] [address] [place], [place] [phone] Tunnel Miner: Mauricio Irby MD Glucose Ql (U) Negative Normal NEG [facility] Comment on above: Performed By: #### U AMIC #### [facility] [address] [place] [address] Tunnel Miner: Mauricio Irby MD Ketones Ql (U) Negative Normal NEG [facility] Comment on above: Performed By: #### U AMIC #### [facility] [address] [place], [place] [phone] Tunnel Miner: Mauricio Irby MD Leukocyte esterase Test strip Ql (U) Negative Normal NEG [facility] Comment on above: Performed By: #### U AMIC #### [facility] [address] [place], [place] 100[address]683 Tunnel Miner: Mauricio Irby MD Nitrite,Ur Negative Normal NEG [facility] Comment on above: Performed By: #### U AMIC #### [facility] [address] [place] [phone] Tunnel Miner: Mauricio Irby MD PH,Ur 6.0 Normal 5.0-9.[address] [facility] Comment on above: Performed By: #### U AMIC #### [facility] [address] [place] [phone] Tunnel Miner: Mauricio Irby MD Protein Ql (U) Negative Normal NEG [facility] Comment on above: Performed By: #### U AMIC #### [address] [place] [address] Tunnel Miner: Mauricio Irby MD Spec. [place],Ur 1.010 Normal 1.010-1.020 [facility] Comment on above: Performed By: #### U AMIC #### [facility] [address] [place] [phone] Tunnel Miner: Mauricio Irby MD Urine RBC's 0 TO 2 Normal 0-[address] [facility] Comment on above: Performed By: #### U AMIC #### [facility] [address] [place], [place] [phone] Tunnel Miner: Mauricio Irby MD Urine WBC's 0 TO 2 Normal 0-[address] [facility] Comment on above: Performed By: #### U AMIC #### [facility] [address] [place] [address] Tunnel Miner: Mauricio Irby MD Urobilinogen,Ur Normal Normal 0.0-1.0 [facility] Comment on above: Performed By: #### U AMIC #### [facility] [address] [place] [address] Tunnel Miner: Mauricio Irby MD Urinalysis with Microscopico n 10-27-2022 Bacteria LM Ql (Urine sed) 1+ Abnormal None [facility] Bilirubin Ql (U) Negative NEGATIVE [facility] Clarity (U) Clear Clear [facility] Color (U) Yellow Yellow [facility] Epithelial cells LM.HPF (Urine sed) [#/Area] 10 TO 20 [facility] Glucose Test strip (U) [Mass/Vol] Negative NEGATIVE mg/dL [facility] Hemoglobin Auto test strip Ql (U) Negative NEGATIVE [facility] Interpretation and review of laboratory results Abnormal [facility] Ketones (U) [Mass/Vol] Negative NEGATIVE mg/dL [facility] Leukocyte esterase Test strip Ql (U) Negative NEGATIVE [facility] Nitrite Ql (U) Negative NEGATIVE [facility] pH (U) 6.0 [pH] 5.0 - 9.0 [facility] Protein (U) [Mass/Vol] Negative NEGATIVE mg/dL [facility] RBC LM.HPF (Urine sed) [#/Area] 0 TO 2 [facility] Specific gravity (U) [Rel density] 1.010 1.010 - 1.020 [facility] Urobilinogen Qn (U) Normal 0.0 - 1.0 EU/dL [facility] WBC LM.HPF (Urine sed) [#/Area] 0 TO 2 [facility] XR ABD FLAT UP_PA Joyce 03-25 [...] MAURICIO LYONS Date: 2022-03-25 08:01 Normal [facility] AMYLASEon 03-24-2022 Amylase [Catalytic activity/Vol] 36 U/L Normal 25-115 [facility] Comment on above: Performed By: #### C MP, DARION, LIPA #### [facility] [address] [place] [address] Dr. Melecio Chadwick CBC AUTO DIFFon 03-24-2022 BASO # 0.0 103/ul Normal 0.0-0.1 [facility] Comment on above: Performed By: #### C BC #### [facility] [address] [place] [address] Dr. Melecio Chadwick Basophils/100 WBC (Bld) 0.2 % Normal 0.2-2.0 [facility] Comment on above: Performed By: #### C BC #### [facility] [address] [place] [address] Dr. Melecio Chadwick EO # 0.1 103/ul Normal 0.0-0.7 [facility] Comment on above: Performed By: #### C BC #### [facility] [address] [place] [address] Dr. Melecio Chadwick Eosinophils/100 WBC (Bld) 1.1 % Normal 0.9-7.0 [facility] Comment on above: Performed By: #### C BC #### [facility] [address] [place] [address] Dr. Melecio Chadwick Erythrocyte distribution width (RBC) [Ratio] 12.3 % Normal 11.0-15.0 [facility] Comment on above: Performed By: #### C BC #### [facility] [address] [place] [address] Dr. Melecio Chadwick Hematocrit (Bld) [Volume fraction] 42.5 % Normal 36.0-48.0 [facility] Comment on above: Performed By: #### C BC #### [facility] [address] [place] [address] Dr. Melecio Chadwick Hemoglobin (Bld) [Mass/Vol] 14.3 g/dL Normal 12.0-16.0 [facility] Comment on above: Performed By: #### C BC #### [facility] [address] [place] [address] Dr. Melecio Chadwick IG # 0.03 10e3/ul Normal 0.00-0.03 [facility] Comment on above: Performed By: #### C BC #### [facility] [address] [place] [address] Dr. Melecio Chadwick IG % 0.3 % Normal 0.0-0.5 [facility] Comment on above: Performed By: #### C BC #### [facility] [address] [place] [address] Dr. Melecio Chadwick LYMPH # 3.1 103/ul Normal 1.2-3.8 [facility] Comment on above: Performed By: #### C BC #### [facility] [address] [place] [address] Dr. Melecio Chadwick Lymphocytes/100 WBC (Bld) 29.8 % Normal 20.5-60.0 [facility] Comment on above: Performed By: #### C BC #### [facility] [address] [place] [address] Dr. Melecio Chadwick MANUAL DIFF REQ NO Normal [facility] Comment on above: Performed By: #### C BC #### [facility] [address] [place] [address] Dr. Melecio Chadwick MCH (RBC) [Entitic mass] 31.0 pg Normal 26.7-34.0 [facility] Comment on above: Performed By: #### C BC #### [facility] [address] [place] [address] Dr. Melecio Chadwick MCHC (RBC) [Mass/Vol] 33.6 g/dL Normal 29.9-35.2 [facility] Comment on above: Performed By: #### C BC #### [facility] [address] [address] [address] Melecio Chadwick MCV (RBC) [Entitic vol] 92.2 fL Normal 81.0-99.0 [facility] Comment on above: Performed By: #### C BC #### [facility] [address] [place] [address] [address] Melecio Chadwick MONO # 0.6 103/ul Normal 0.3-0.8 [facility] Comment on above: Performed By: #### C BC #### [facility] [address] [place] [address] Dr. Melecio Chadwick Monocytes/100 WBC (Bld) 5.8 % Normal 1.7-12.0 [facility] Comment on above: Performed By: #### C BC #### [facility] [address] [place] [address] Dr. Melecio Chadwick NEUT # 6.5 103/ul Normal 1.4-6.5 [facility] Comment on above: Performed By: #### C BC #### [facility] [address] [place] [address] Dr. Melecio Chadwick Neutrophils/100 WBC (Bld) 62.8 % Normal 43.0-75.0 [facility] Comment on above: Performed By: #### C BC #### [facility] [address] [place] [address] Dr. Melecio Chadwick Platelet mean volume (Bld) [Entitic vol] 9.0 fL Critically low 9.5-13.5 [facility] Comment on above: Performed By: #### C BC #### [facility] [address] [place] [address] Dr. Melecio Chadwick PLT 268 103/ul Normal 150-450 [facility] Comment on above: Performed By: #### C BC #### [facility] [address] [place] [address] Dr. Melecio Chadwick RBC 4.61 106/ul Normal 4.20-5.40 [facility] Comment on above: Performed By: #### C BC #### [facility] [address] [place] [address] Dr. Melecio Chadwick WBC 10.4 103/ul Normal 4.0-11.0 [facility] Comment on above: Performed By: #### C BC #### [facility] [address] [address] [address] Melecio Chadwick LIPASEon 03-24-2022 Lipase [Catalytic activity/Vol] 114.0 U/L Normal 73.0-393.0 [facility] Comment on above: Performed By: #### C MP, DARION, LIPA #### [facility] [address] [address] [address] Melecio Chadwick PROF 14(COMP METB)on 023 Albumin [Mass/Vol] 3.5 g/dL Normal 3.4-5.0 [facility] Comment on above: Performed By: #### C MP, DARION, LIPA #### [facility] [address] [place] [address] Dr. Melecio Chadwick Albumin/Globulin [Mass ratio] 0.8 {ratio} Normal [facility] Comment on above: Performed By: #### C MP, DARION, LIPA #### [facility] [address] [address] [address] Melecio Chadwick ALP [Catalytic activity/Vol] 85 U/L Normal 46-116 [facility] Comment on above: Performed By: #### C MP, DARION, LIPA #### [facility] [address] [address] [address] Melecio Chadwick ALT [Catalytic activity/Vol] 21 U/L Normal 14-59 [facility] Comment on above: Performed By: #### C MP, DARION, LIPA #### [facility] [address] [address] [address] Melecio Chadwick Anion gap [Moles/Vol] 11.6 mmol/L Normal [facility] Comment on above: Performed By: #### C MP, DARION, LIPA #### [facility] [address] [address] [address] Melecio Chadwick AST [Catalytic activity/Vol] 15 U/L Normal 15-37 [facility] Comment on above: Performed By: #### C MP, DARION, LIPA #### [facility] [address] [address] [address] Melecio Chadwick Bilirubin [Mass/Vol] 0.3 mg/dL Normal 0.2-1.0 [facility] Comment on above: Performed By: #### C MP, DARION, LIPA #### [facility] [address] [place] [address] Dr. Melecio Chadwick Calcium [Mass/Vol] 8.8 mg/dL Normal 8.5-10.1 [facility] Comment on above: Performed By: #### C MP, DARION, LIPA #### [facility] [address] [place] [address] Dr. Melecio Chadwick Chloride [Moles/Vol] 102 mmol/L Normal 98-107 [facility] Comment on above: Performed By: #### C DOREEN DARION, LIPA #### [facility] [address] [place] [address] Dr. Melecio Chadwick CO2 [Moles/Vol] 28.5 mmol/L Normal 21.0-32.0 [facility] Comment on above: Performed By: #### C MP DARION, LIPA #### [facility] [address] [place] [address] Dr. Melecio Chadwick Creatinine [Mass/Vol] 0.76 mg/dL Normal 0.55-1.02 [facility] Comment on above: Performed By: #### C MP DARION, LIPA #### [facility] [address] [place] [address] Dr. Melecio Chadwick EGFR-AF OMANI >60 Normal >=60 [facility] Comment on above: Performed By: #### C MP, DARION, LIPA #### [facility] [address] [place] [address] Dr. Melecio Chadwick EGFR-NON AF OMANI >60 Normal >=60 [facility] Comment on above: Performed By: #### C MP, DARION, LIPA #### [facility] [address] [place] [address] Dr. Melecio Chadwick Globulin (S) [Mass/Vol] 4.2 g/dL Normal [facility] Comment on above: Performed By: #### C MP, DARION, LIPA #### [facility] [address] [place] [address] Dr. Melecio Chadwick Glucose [Mass/Vol] 97 mg/dL Normal 74-106 [facility] Comment on above: Performed By: #### C MP, DARION, LIPA #### [facility] [address] [place] [address] Dr. Melecio Chadwick Potassium [Moles/Vol] 4.1 mmol/L Normal 3.5-5.1 [facility] Comment on above: Performed By: #### C MP DARION, LIPA #### [facility] [address] [place] [address] Dr. Melecio Chadwick Protein [Mass/Vol] 7.7 g/dL Normal 6.4-8.2 [facility] Comment on above: Performed By: #### C MP, DARION, LIPA #### [facility] [address] [place] [address] Dr. Melecio Chadwick Sodium [Moles/Vol] 138 mmol/L Normal 136-145 [facility] Comment on above: Performed By: #### C MP, DARION, LIPA #### [facility] [address] [place] [address] Dr. Melecio Chadwick Urea nitrogen [Mass/Vol] 9.0 mg/dL Normal 7.0-18.0 [facility] Comment on above: Performed By: #### C MP, DARION, LIPA #### [facility] [address] [place] [address] Dr. Melecio Chadwick Urea nitrogen/Creatini ne [Mass ratio] 11.8 mg/mg Normal [facility] Comment on above: Performed By: #### C MP, DARION, LIPA #### [facility] [address] [place] [address] Dr. Melecio Chadwick AMYLASEon 03-19-2022 Amylase [Catalytic activity/Vol] 44 U/L Normal 25-115 [facility] Comment on above: Performed By: #### A MY, CMP, LIPA #### [facility] [address] [address] [address] Melecio Chadwick CBC AUTO DIFFon 03-19-2022 BASO # 0.0 103/ul Normal 0.0-0.1 [facility] Comment on above: Performed By: #### C BC #### [facility] [address] [place] [address] Dr. Melecio Chadwick Basophils/100 WBC (Bld) 0.2 % Normal 0.2-2.0 [facility] Comment on above: Performed By: #### C BC #### [facility] [address] [place] [address] Dr. Melecio Chadwick EO # 0.1 103/ul Normal 0.0-0.7 [facility] Comment on above: Performed By: #### C BC #### [facility] [address] [place] [address] Dr. Melecio Chadwick Eosinophils/100 WBC (Bld) 1.5 % Normal 0.9-7.0 [facility] Comment on above: Performed By: #### C BC #### [facility] [address] [place] [address] Dr. Melecio Chadwick Erythrocyte distribution width (RBC) [Ratio] 12.4 % Normal 11.0-15.0 [facility] Comment on above: Performed By: #### C BC #### [facility] [address] [place] [address] Dr. Melecio Chadwick Hematocrit (Bld) [Volume fraction] 41.8 % Normal 36.0-48.0 [facility] Comment on above: Performed By: #### C BC #### [facility] [address] [place] [address] Dr. Melecio Chadwick Hemoglobin (Bld) [Mass/Vol] 13.2 g/dL Normal 12.0-16.0 [facility] Comment on above: Performed By: #### C BC #### [facility] [address] [place] [address] Dr. Melecio Chadwick IG # 0.02 10e3/ul Normal 0.00-0.03 [facility] Comment on above: Performed By: #### C BC #### [facility] [address] [place] [address] Dr. Melecio Chadwick IG % 0.2 % Normal 0.0-0.5 [facility] Comment on above: Performed By: #### C BC #### [facility] [address] [place] [address] Dr. Melecio Chadwick LYMPH # 3.3 103/ul Normal 1.2-3.8 [facility] Comment on above: Performed By: #### C BC #### [facility] [address] [place] [address] Dr. Melecio Chadwick Lymphocytes/100 WBC (Bld) 38.0 % Normal 20.5-60.0 [facility] Comment on above: Performed By: #### C BC #### [facility] [address] [place] [address] Dr. Melecio Chadwick MANUAL DIFF REQ NO Normal [facility] Comment on above: Performed By: #### C BC #### [facility] [address] [place] [address] Dr. Melecio Chadwick MCH (RBC) [Entitic mass] 30.9 pg Normal 26.7-34.0 [facility] Comment on above: Performed By: #### C BC #### [facility] [address] [place] [address] Dr. Melecio Chadwick MCHC (RBC) [Mass/Vol] 31.6 g/dL Normal 29.9-35.2 [facility] Comment on above: Performed By: #### C BC #### [facility] [address] [place] [address] Dr. Melecio Chadwick MCV (RBC) [Entitic vol] 97.9 fL Normal 81.0-99.0 [facility] Comment on above: Performed By: #### C BC #### [facility] [address] [place] [address] Dr. Melecio Chadwick MONO # 0.4 103/ul Normal 0.3-0.8 [facility] Comment on above: Performed By: #### C BC #### [facility] [address] [place] [address] Dr. Melecio Chadwick Monocytes/100 WBC (Bld) 4.6 % Normal 1.7-12.0 [facility] Comment on above: Performed By: #### C BC #### [facility] [address] [place] [address] Dr. Melecio Chadwick NEUT # 4.8 103/ul Normal 1.4-6.5 [facility] Comment on above: Performed By: #### C BC #### [facility] [address] [place] [address] Dr. Melecio Chadwick Neutrophils/100 WBC (Bld) 55.5 % Normal 43.0-75.0 [facility] Comment on above: Performed By: #### C BC #### [facility] [address] [place] [address] Dr. Melecio Chadwick Platelet mean volume (Bld) [Entitic vol] 9.7 fL Normal 9.5-13.5 [facility] Comment on above: Performed By: #### C BC #### [facility] [address] [place] [address] Dr. Melecio Chadwick PLT 258 103/ul Normal 150-450 [facility] Comment on above: Performed By: #### C BC #### [facility] [address] [place] [address] Dr. Melecio Chadwick RBC 4.27 106/ul Normal 4.20-5.40 [facility] Comment on above: Performed By: #### C BC #### [facility] [address] [place] [address] Dr. Melecio Chadwick WBC 8.7 103/ul Normal 4.0-11.0 [facility] Comment on above: Performed By: #### C BC #### [facility] [address] [place] [address] Dr. Melecio Chadwick LIPASEon 03-19-2022 Lipase [Catalytic activity/Vol] 119.0 U/L Normal 73.0-393.0 [facility] Comment on above: Performed By: #### A MY, CMP, LIPA #### [facility] [address] [address] [address] Melecio Chadwick PROF 14(COMP METB)on 023 Albumin [Mass/Vol] 3.2 g/dL Critically low 3.4-5.0 [facility] Comment on above: Performed By: #### A MY, CMP, LIPA #### [facility] [address] [address] [address] Melecio Chadwick Albumin/Globulin [Mass ratio] 0.9 {ratio} Normal [facility] Comment on above: Performed By: #### A MY, CMP, LIPA #### [facility] [address] [address] [address] Melecio Chadwick ALP [Catalytic activity/Vol] 76 U/L Normal 46-116 [facility] Comment on above: Performed By: #### A MY, CMP, LIPA #### [facility] [address] [address] [address] Melecio Chadwick ALT [Catalytic activity/Vol] 18 U/L Normal 14-59 [facility] Comment on above: Performed By: #### A MY, CMP, LIPA #### [facility] [address] [address] [address] Melecio Chadwick Anion gap [Moles/Vol] 11.6 mmol/L Normal [facility] Comment on above: Performed By: #### A MY, CMP, LIPA #### [facility] [address] [address] [address] Melecio Chadwick AST [Catalytic activity/Vol] 14 U/L Critically low 15-37 [facility] Comment on above: Performed By: #### A MY, CMP, LIPA #### [facility] [address] [address] [address] Melecio Chadwick Bilirubin [Mass/Vol] 0.2 mg/dL Normal 0.2-1.0 [facility] Comment on above: Performed By: #### A MY, CMP, LIPA #### [facility] [address] [address] [address] Melecio Chadwick Calcium [Mass/Vol] 7.9 mg/dL Critically low 8.5-10.1 [facility] Comment on above: Performed By: #### A MY, CMP, LIPA #### [facility] [address] [address] [address] Melecio Chadwick Chloride [Moles/Vol] 105 mmol/L Normal 98-107 [facility] Comment on above: Performed By: #### A MY, CMP, LIPA #### [facility] [address] [address] [address] Melecio Chadwick CO2 [Moles/Vol] 25.8 mmol/L Normal 21.0-32.0 [facility] Comment on above: Performed By: #### A MY, CMP, LIPA #### [facility] [address] [place] [address] Dr. Melecio Chadwick Creatinine [Mass/Vol] 0.67 mg/dL Normal 0.55-1.02 [facility] Comment on above: Performed By: #### A MY, CMP, LIPA #### [facility] [address] [place] [address] Dr. Melecio Chadwick EGFR-AF OMANI >60 Normal >=60 [facility] Comment on above: Performed By: #### A MY, CMP, LIPA #### [facility] [address] [place] [address] Dr. Melecio Chadwick EGFR-NON AF OMANI >60 Normal >=60 [facility] Comment on above: Performed By: #### A MY, CMP, LIPA #### [facility] [address] [place] [address] Dr. Melecio Chadwick Globulin (S) [Mass/Vol] 3.6 g/dL Normal [facility] Comment on above: Performed By: #### A MY, CMP, LIPA #### [facility] [address] [place] [address] Dr. Melecio Chadwick Glucose [Mass/Vol] 95 mg/dL Normal 74-106 [facility] Comment on above: Performed By: #### A MY, CMP, LIPA #### [facility] [address] [place] [address] Dr. Melecio Chadwick Potassium [Moles/Vol] 3.4 mmol/L Critically low 3.5-5.1 [facility] Comment on above: Performed By: #### A MY CMP, LIPA #### [facility] [address] [address] [address] Melecio Chadwick Protein [Mass/Vol] 6.8 g/dL Normal 6.4-8.2 [facility] Comment on above: Performed By: #### A MY CMP, LIPA #### [facility] [address] [address] [address] Melecio Chadwick Sodium [Moles/Vol] 139 mmol/L Normal 136-145 [facility] Comment on above: Performed By: #### A MY CMP, LIPA #### [facility] [address] [place] [address] Dr. Melecio Chadwick Urea nitrogen [Mass/Vol] 6.0 mg/dL Critically low 7.0-18.0 [facility] Comment on above: Performed By: #### A WHITNEY CMP, LIPA #### [facility] [address] [place] [address] Dr. Melecio Chadwick Urea nitrogen/Creatini ne [Mass ratio] 9.0 mg/mg Normal [facility] Comment on above: Performed By: #### A WHITNEY CMP, LIPA #### [facility] [address] [place] [address] Dr. Melecio Chadwick Intraoperative Noteon 2017 Intraoperative Note [id number]#[address] [place] [address] Intraoperative Noteon 2017 Intraoperative Note [id number]#[address] [place] [address] History and Physicalon 01-23 History and Physical [id number]#[address] [place] [address] Provider Orderson 01-23-2017 Protein [id number]#[address] [place] [address] Coding Summaryon 12-08-2016 Coding Summary CODING DATE: 017 [facility] STATUS: Home PAYOR: [employer] APC DESCRIPTION 5113 Level 3 Musculoskeletal Procedures ADMIT DX: REASON FOR VISIT DX: S83.242A Other tear of medial meniscus, current injury, left knee, initial encounter FINAL DX: PRINCIPAL: M22.42 Chondromalacia patellae, left knee SECONDARY: M94.9 Disorder of cartilage, unspecified PYMT PROC APC STAT DESCRIPTION DOCTOR NAME DATE 60964 5113 J1 Arthroscopy, knee, ARIES HARO 12/05/2016 [...] Tamanna Ambrocio Date Saved: 12/08/2016 03:51 pm [facility] Consent Formson 12-08-2016 Consent Forms [id number] Instructions [id number][facility] 2016 Intraoperative Note [id number]#[facility] Rec[facility] [address] [facility] Primary Physician: ARIES HARO Finalized Date/Time: 12/08/16 10:49:55 Pt. Name: TAMY WALLS/Sex: 1980 FEMALE Med Rec #: [id number] Physician: ARIES HARO Financial #: [id number] Pt. Type: D Room/Bed: / Admit/Disch: 12/05/16 [...] Signed By: Sana Jarvis RN 12/08/16 10:49 Normal [facility] Preoperative Recordon 1 [facility] Preoperative Record [facility] Pre-Op Record Summary Primary Physician: ARIES HARO Finalized Date/Time: 12/08/16 10:20:04 Pt. Name: TAMY WALLS/Sex: 1980 FEMALE Med Rec #: [id number] Physician: ARIES HARO Financial #: [id number] Pt. Type: D Room/Bed: / Admit/Disch: 12/05/16 [...] active drainage noted or foul smelling. Dr. Riversanic in to visit with patient and checks razor cut on lower left leg......OK for surgery Finalized By: Marium Ledbetter RN Document Signatures Signed By: Marium Ledbetter RN 12/08/16 10:20 [facility] Medication Managementon 11-11 Medication Management [id number]#1.00OTGTIFF [facility] Telemetry Stripson 7 Telemetry Strips [id number]#1.00OTGTIFF [facility] Anesthesia Noteon 12-05-2016 Anesthesia Note Patient: RUFUS WALLS : 36 years Sex: FEMALE : [birth year]Associated Diagnoses: NoneAuthor: Bunny Briggs MDPostoperative InformationPost Operative Note: Operative Day.Anesthetic utilized: General.Health StatusAllergies:Allergic Reactions (All)Severity Not DocumentedDilaudid- Angio-oedema.Percocet 5/325- Nausea & vomiting.Problem list (past medical history):All ProblemsAnxiety / SNOMED CT 40134180 / ConfirmedPhysical ExaminationVS/MeasurementsV ital Signs (last 24 [...] on: 12/05/2016 12:07 EDT] Bunny Briggs MD [facility] Anesthesia Note Patient: RUFUS WALLS : 36 [...] (past medical history):All ProblemsAnxiety / SNOMED CT 37293882 / ConfirmedHistoriesFamily History:No family history items have been selected or recorded.Procedure history:Hysterectomy (688084532) in 2014 at 33 Years.Comments:11/28/2016 10:07 - Shayy Sylvester RNpartialAppendectomy (221557229) in 2013 at 32 Years.Tubal ligation (681644465) in 2004 at 24 Years.Cholecystectomy (76260041) in 1999 at 19 Years.Ear care (722710110).Comments:2016 10:06 - Shayy Sylvester RNtubes u6Oxlvce History Alcohol Assessment Use: Never. Tobacco Assessment former smoker quit 2 yrs ago Tobacco Use:. Substance Abuse Assessment Substance use: Never..Social & Psychosocial JbtksqYqgbsjy41/20/2017 Alcohol Use: NeverSubstance Abuse11/28/2016 Substance use: IuggsEzrseel86/20/2017 Smoking tobacco use: former smoker quit 2 yrs ago.Physical ExaminationVS/MeasurementsV ital Signs (last 24 hrs) Last ChartedHeart Rate Peripheral 91 bpm (DEC 05 09:00)Resp Rate 16 br/min (DEC 05 09:00)SBP 137 mmHg (DEC 05 09:12)DBP 77 mmHg (DEC 05 09:12)SpO2 98 % (DEC 05 09:00)Airway: Mallampati classification: II (soft palate, fauces, uvula [...] on: 12/05/2016 10:25 EDT] Bunny Briggs MD [facility] MAGR Intraoperative Recordon 12-05-2016 MAGR Intraoperative Record [facility] Intra-Op Record Summary Primary Physician: ARIES HARO Finalized Date/Time: 12/05/16 11:52:54 Pt. Name: TAMY WALLS/Sex: 1980 FEMALE Med Rec #: [id number] Physician: ARIES HARO Financial #: [id number] Pt. Type: D Room/Bed: / Admit/Disch: 12/05/16 [...] Role Performed Surgeon - Primary Anesthesiologist of Needle Punch Machine Operator Helper Record Time In 12/05/16 10:37:00 12/05/16 10:37:00 12/05/16 10:37:00 Time Out 12/05/16 11:30:00 12/05/16 11:48:00 12/05/16 11:48:00 Procedure Arthroscopy Knee(Left) Arthroscopy Knee(Left) Arthroscopy Knee(Left) Last Modified By: Leslie Tolentino RN, Stephanie RN Sauer, Stephanie RN 12/05/16 11:52:02 12/05/16 11:52:02 12/05/16 11:52:02 Entry 4 Entry 5 Entry 6 Case Attendee Ro Morrison RN, Leigh-Ann CST Nikolaus, Linda M Role Performed Needle Punch Machine Operator Helper Shell Sorter Scrub Personnel Time In 12/05/16 10:37:00 12/05/16 [...] Primary Procedure Yes Primary Surgeon ARIES HARO Modifiers Left Surgeon Comment LEFT KNEE ARTHROSCOPY Start [...] Signed By: Leslie Tolentino RN 12/05/16 11:52 [facility] MAGR Postoperative Recordon 12-05-2016 MAG[facility] Postoperative Record [facility] Phase II Record Summary Primary Physician: ARIES HARO Finalized Date/Time: 12/05/16 14:50:11 Pt. Name: TAMY WALLS D.O.B./Sex: 1980 FEMALE Med Rec #: [id number] Physician: ARIES HARO Financial #: [id number] Pt. Type: D Room/Bed: / Admit/Disch: 12/05/16 [...] 1320.....care assumed from Og Jarvis RN...report received 1402 - discharge instructions reviewed with patient, daughter, and grandmother. All verbalize understanding. Copy of instructions sent home with patient along with prescription for percocet......discharged per wheelchair to private auto driven by daughter for home Finalized By: Sana Jarvis RN Document Signatures Signed By: Sana Jarvis RN 12/05/16 14:50 [facility] Progress Note - Nurseon 10-2 Progress Note - Nurse Spoke with pt and informed her to be here at 9am and NPO after MN, she verbalizes understanding.[Electronical ly Signed on: 12/04/2016 09:42 EDT] Shayy Sylvester RN[Verified on: 12/04/2016 09:42 EDT] Shayy Sylvester RN [facility] Vital Signs Date Time Vital Sign Value Performing Clinician Eliseo perales 11-27-2023 08:42-0400 Body height 172.2 cm Jaylen Brown MD [facility] 11-27-2023 08:42-0400 Body mass index (BMI) [Ratio] 39.19 kg/m2 Jaylen Brown MD Work Phone[facility] 11-27-2023 08:42-0400 Body weight 116.21 kg Jaylen Brown MD [facility] 11-27-2023 08:42-0400 Diastolic blood pressure 91 mm[Hg] Jaylen Brown MD Work Phone: [facility] [employer] 11-27-2023 08:42-0400 Heart rate 84 /min Jaylen Brown MD Work Phone: [facility] 11-27-2023 08:42-0400 Systolic blood pressure 142 mm[Hg] Jaylen Brown MD Work Phone: [facility] 10-27-2022 20:03-0400 Diastolic blood pressure 76 mm[Hg] Anna Callahan MD Work Phone: [employer] 10-27-2022 20:03-0400 SaO2% (BldA) [Mass fraction] 98 % Anna Callahan MD Work Phone: [employer] 10-27-2022 20:03-0400 Systolic blood pressure 126 mm[Hg] Anna Callahan MD Work Phone: [employer] 10-27-2022 15:17-0400 Body weight 104.33 kg Anna Callahan MD Work Phone: [employer] 10-27-2022 15:15-0400 Body temperature 97.9 [degF] Anna Callahan MD Work Phone: [facility] 10-27-2022 15:15-0400 Heart rate 100 /min Anna Callahan MD Work Phone: [facility] 10-27-2022 15:15-0400 Respiratory rate 18 /min Anna Callahan MD Work Phone: [facility] Encounters Encounter Date Encounter Type Care Provider Facility Start: 11-27-2023 End: 11-27-2023 Office outpatient new 45 minutes Jaylen Brown MD Work Phone: [facility] Comment on above: Obesity, Class II, B OR 35-39.9 (Primary Dx); Gastroesophageal reflux disease, unspecified whether esophagitis present Start: 11-27-2023 End: 11-27-2023 ambulatory [facility] Elke BROWN [facility] Start: 10-27-2022 End: 10-27-2022 Emergency department patient visit Anna Clalahan MD Work Phone: [facility] ED Comment on above: Left flank pain (Berenice denilson Dx) Start: 04-21-2022 End: 04-22-[address] FRANCIA ROWELL . Facility:[facility] Start: 03-24-2022 End: 03-25-[address] FRANCIA ROWELL . Facility:[facility] Start: 03-19-2022 End: 03-19-[address] FRANCIA ROWELL . Facility: Start: 12-05-2016 End: 12-05-2016 Patient encounter [facility] Facility:[facility] Start: 11-29-2016 End: 11-29-2016 Patient encounter [facility] Facility:[facility] Procedures Date Procedure Procedure Detail Performing Clinician Start: 10-27-2022 Ct abdomen & pelvis w/contrast material Tyler Galarza PA-C Work Phone: Start: 10-27-2022 Urnls dip stick/tabl et reagent auto microscopy Anna Callahan MD Work Phone: Start: 10-27-2022 Comprehensive metabo lic panel Anna Callahan MD Work Phone: Start: 04-15-2022 Adult depression scr eening assessment Jaylen Brown MD Work Phone: Plan of Treatment Date Care Activity Detail Author Start: 11-26-2024 Adult BMI Screening Adult BMI Screen ing [facility] Start: 05-08-2024 DTaP,Tdap and Td Vac cines (2 - Td or Tdap) DTaP,Tdap and Td Vaccines (2 - Td or Tdap) [facility] Start: 12-11-2023 End: 12-11-2023 Telemedicine consultation with patient 12/11/2023 9:00 AM EDT Telemedicine [facility] [address] [place] [address] Chrissy Swo LD [address], [place] [id number] [facility] Start: 11-27-2023 End: 11-26-2024 RF Gastrointestinal tract upper Views W air contrast PO and W barium contrast PO Fluoroscopy upper GI with esophagus Imaging Routine Obesity, Class II, BMI 35-39.9 Expected: 11/27/2023, Expires: 11/26/2024 [facility] Comment on above: Expected: 11/27/2023 , Expires: 11/26/2024 Start: 10-11-2023 COVID-19 Vaccine ( season) COVID-19 Vaccine ( season) [facility] Start: 10-11-2023 Influenza vaccination Influenza Vacc ine [facility] Start: 10-06-2023 Tobacco Screening Tobacco Screening [facility] Start: 04-16-2023 Depression Screening Depression Scre ening [facility] Start: 09-09-2022 Influenza vaccination Flu vaccine (# 1) [facility] Start: 2021 Lipid panel Lipids [facility] Start: 05-01-2011 Screening for malign ant neoplasm of cervix [facility] Start: 2002 Screening for malign ant neoplasm of cervix Pap smear [facility] Start: 2000 DTaP/Tdap/Td vaccine (1 - Tdap) DTaP/Tdap/Td vaccine (1 - Tdap) [facility] Start: 05-01-1999 Adult BMI Follow Up Plan Adult BMI Follow Up Plan [employer] Start: 05-01-1999 Hepatitis C screening Hepatitis C sc reen [facility] Start: 1996 HIV screening HIV screen [facility] Start: 1993 Depression Screen Depression Screen [facility] Start: 1982 Varicella vaccine (1 of 2 - 2-dose childhood series) Varicella vaccine (1 of 2 - 2-dose childhood series) [facility] Start: 1981 COVID-19 Vaccine (#1) COVID-19 Vacci ne (#1) [facility] Start: 1981 Hepatitis B vaccine (1 of 3 - 3-dose series) Hepatitis B vaccine (1 of 3 - 3-dose series) [facility] End: 11-26-2024 CBC W Auto Differential panel - Blood CBC auto differential Lab Routine Obesity, Class II, BMI 35-39.9 1 Occurrences starting 11/27/2023 until 11/26/2024 [employer] Work Phone: Comment on above: 1 Occurrences starti ng 11/27/2023 until 11/26/2024 End: 10-27-2022 Culture, Urine [facility] [employer] Work Phone: Comment on above: One Time for 1 Occur rences starting 10/27/2022 until 10/27/2022 End: 11-26-2024 Cyanocobalamin vitamin b-12 Vitamin B12 Lab Routine Obesity, Class II, BMI 35-39.9 1 Occurrences starting 11/27/2023 until 11/26/2024 [employer] Comment on above: 1 Occurrences starti ng 11/27/2023 until 11/26/2024 End: 11-26-2024 Hemoglobin A1c/Hemoglobin.total in Blood Hemoglobin A1c Lab Routine Obesity, Class II, BMI 35-39.9 1 Occurrences starting 11/27/2023 until 11/26/2024 [facility] Comment on above: 1 Occurrences starti ng 11/27/2023 until 11/26/2024 End: 11-26-2024 Iron [Mass/volume] in Serum or Plasma Iron Lab Routine Obesity, Class II, BMI 35-39.9 1 Occurrences starting 11/27/2023 until 11/26/2024 [facility] Comment on above: 1 Occurrences starti ng 11/27/2023 until 11/26/2024 End: 11-26-2024 Liver panel Liver panel Lab Routine Obesity, Class II, BMI 35-39.9 1 Occurrences starting 11/27/2023 until 11/26/2024 [facility] Comment on above: 1 Occurrences starti ng 11/27/2023 until 11/26/2024 End: 11-26-2024 Parathyroid Hormone, intact Parathyroid Hormone, intact Lab Routine Obesity, Class II, BMI 35-39.9 1 Occurrences starting 11/27/2023 until 11/26/2024 [facility] Comment on above: 1 Occurrences starti ng 11/27/2023 until 11/26/2024 End: 11-26-2024 Thyrotropin [Units/volume] in Serum or Plasma TSH Lab Routine Obesity, Class II, BMI 35-39.9 1 Occurrences starting 11/27/2023 until 11/26/2024 [facility] Comment on above: 1 Occurrences starti ng 11/27/2023 until 11/26/2024 End: 11-26-2024 Vitamin D 25 hydroxy Vitamin D 25 hydroxy Lab Routine Obesity, Class II, BMI 35-39.9 1 Occurrences starting 11/27/2023 until 11/26/2024 [facility] Comment on above: 1 Occurrences starti ng 11/27/2023 until 11/26/2024 Immunizations Immunization Date Immunization Notes Care Provider [facility] 12-11-2020 influenza virus vaccine, unspecified formulation Jaylen Brown MD Work Phone: [facility] [employer] [facility] Payers Date Payer Category Payer Managed Care Other (unspecified) [employer] [id number] 2023 Unknown [id number] 2016 Unknown [id number] 1981 Unknown [id number] 1981 Unknown [id number] 1981 Unknown [id number] 1981 Unknown [id number] 1981 Unknown [id number] 1959 Unknown [id number] Social History Date Type Detail Facility Tobacco smoking stat [facility] Tobacco smoking consumption unknown [facility] Start: 1981 Sex Assigned At Not on file B ON [facility] Start: 03-22-2020 End: 10-05-2022 Gender identity Not on file [facility] Start: 05-17-2021 Tobacco smoking stat [facility] Occasional tobacco smoker [facility] History of tobacco use Cigarette Smoker P [facility] Start: 03-22-2020 End: 05-17-2021 Cigarettes smoked current (pack per day) - Reported 0.5 [facility] Start: 05-17-2021 Tobacco use and exposure Smokeless tobacco non-user [facility] Start: 10-05-2022 Alcoholic beverage intake Current non-drinker of alcohol (finding) [facility] Adolescent depressio n screening assessment 0 [facility] Start: 08-06-2015 Sex Female (finding) [facility] Procedure Code Equipment Code Equipment Origin al Text Equipment Identifier Dates [place] Sut 4.75m m [employer] Cls Eylt Vnt Pk 19.1mm Strl Disp Cls Use [id number] Ea=Bill Only - [id number] Start: 05-29-2021 History of Present illness Narrative 11-27-2023 Jaylen Brown MD - 11/27/2023 9:00 AM EDT Note Date & Type Note Facility 11-27-2023 History of Present illness Narrative [facility] GENERAL SURGERY [address] [facility] [id number] [facility] SURGICAL WEIGHT LOSS PROGRAM INITIAL EVALUATION Patient: Tamy Lo Service Date: 11/27/2023 HPI: The patient is here to discuss surgical weight loss options. Patient has tried to lose weight by conventional means of diet and physical activity but cannot keep weight off. Patient will begin our dietary evaluation process and psychological evaluation and return to me to discuss laparoscopic sleeve gastrectomy as a tool for weight loss and also is aware that surgery is the last resort for weight loss. Patient also understands the importance of vitamins for life, need of physical activity, behavior education about food and nutritional habits, follow up requirements and participation in our support groups. Benefits, risks and alternatives of laparoscopic sleeve gastrectomy were discussed. Patient has family support and would like to proceed. Chief Complaint Patient presents with New Patient The patient is a 43 y.o. year old female with morbid obesity, who stands Height: 172.2 cm (5' 7.8 ) tall with a weight of Weight: 116.2 kg (256 lb 3.2 oz) , resulting in a BMI of Body mass index is 39.19 kg/m .. The patient suffers from comorbidities as a result of morbid obesity, including: Knee pain, Back pain, GERD, Hypertension, Osteoarthritis, and Other edema . She has suffered from obesity for many years, with their heaviest weight being her current weight. The patient has failed multiple attempts at non-surgical weight loss, and is now seeking surgical intervention to promote permanent and consistent weight loss. She has chosen Robotic Laparoscopic or Open Sleeve Gastrectomy. She is well educated regarding it, as she has recently viewed our weight loss surgery informational seminar. The patient has been thinking about weight loss surgery for several years. She has started the process about 7 years ago, however she was able to lose weight through diet and exercise and stopped the program. Her twin sister had gastric bypass surgery and on of her parents recently had it. We discussed options, and the patient feels the sleeve gastrectomy would be the best fit for her. She currently takes Mobic for arthritis pain. She is also currently smoker trying to quit. She understands she will need to quit completely prior to surgery. She currently takes metoprolol for her blood pressure. She was recently started on p.r.n. Lasix because she has been developing edema. 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 She has a history of a laparoscopic cholecystectomy, laparoscopic appendectomy, and hysterectomy. Medical History: Past Medical History: Diagnosis Date Dental disease upper and lower dentures Difficult intravenous access Eczema feet/ hands Hypertension just came off meds recently Kidney stones Migraines Obesity Panic disorder PONV (postoperative nausea and vomiting) Surgical History: Past Surgical History: Procedure Laterality Date APPENDECTOMY ARTHROSCOPY KNEE Left 11/16/2018 Performed by Aries Haro Jr., DO at [facility] ARTHROSCOPY REPAIR ROTATOR CUFF SHOULDER [id number], SUBACROMIAL DECOMPRESSION [id number]/extensive debridement Right 05/29/2021 Performed by Luigi Vargas MD at [facility] CHOLECYSTECTOMY COLONOSCOPY N/A 2017 Performed by Sancho Curry MD at [facility] EGD N/A 2017 Performed by Sancho Curry MD at [facility] HYSTERECTOMY partial OOPHORECTOMY Right Family History: Family History Problem Relation Age of Onset No Known Problems Mother Stroke Father Cancer Father brain Breast cancer Sister 35 Pancreatic cancer Paternal great-grandfather Anesthesia problems Neg Hx Colon cancer Neg Hx Social History: Social History Tobacco Use Smoking status: Some Days Current packs/day: 0.50 Average packs/day: 0.5 packs/day for 18.0 years (9.0 ttl pk-yrs) Types: Cigarettes Smokeless tobacco: Never Vaping Use Vaping status: Never Used Substance Use Topics Alcohol use: No Drug use: No Current Med List: Current Outpatient Medications: erenumab-aooe 70 mg/mL auto-injector, Inject 140 mg under the skin every 30 (thirty) days., Disp: , Rfl: furosemide (LASIX) 40 mg tablet, Take 1 tablet (40 mg total) by mouth daily., Disp: , Rfl: KLOR-CON M20 20 mEq CR tablet, Take 1 tablet (20 mEq total) by mouth in the morning and 1 tablet (20 mEq total) before bedtime. TAKE 1 BY MOUTH TWICE DAILY WITH FOOD., Disp: , Rfl: meloxicam (MOBIC) 15 mg tablet, Take 1 tablet (15 mg total) by mouth in the morning., Disp: , Rfl: metoprolol tartrate (LOPRESSOR) 50 mg tablet, Take 1 tablet (50 mg total) by mouth in the morning and 1 tablet (50 mg total) before bedtime., Disp: , Rfl: ondansetron (ZOFRAN) 4 mg tablet, Take 1 tablet (4 mg total) by mouth every 8 (eight) hours as needed for nausea or vomiting., Disp: 30 tablet, Rfl: 0 pantoprazole (PROTONIX) 40 mg EC tablet, Take 1 tablet (40 mg total) by mouth every morning before breakfast., Disp: , Rfl: promethazine (PHENERGAN) 25 mg tablet, Take 1 tablet (25 mg total) by mouth daily as needed for nausea., Disp: , Rfl: rimegepant (NURTEC ODT) 75 mg tablet,disintegrating, Dissolve on tongue as needed., Disp: , Rfl: triamcinolone (KENALOG) 0.1 % cream, Apply 1 Application topically as needed., Disp: , Rfl: ibuprofen (ADVIL,MOTRIN) 200 mg tablet, Take 2 tablets (400 mg total) by mouth every 6 (six) hours as needed for pain., Disp: , Rfl: ibuprofen (ADVIL,MOTRIN) 800 mg tablet, Take 1 tablet (800 mg total) by mouth every 8 (eight) hours as needed for pain., Disp: 90 tablet, Rfl: 0 ibuprofen (MOTRIN) 600 mg tablet, Take 1 tablet (600 mg total) by mouth every 6 (six) hours as needed for pain., Disp: 30 tablet, Rfl: 0 tiZANidine (ZANAFLEX) 4 mg tablet, Take 1 tablet (4 mg total) by mouth every 6 (six) hours as needed., Disp: , Rfl: SOCIAL: This patient is presenting alone for the evaluation today. Their functional status is independent. Comprehension Ability to grasp concepts and respond to questions: [x] High [] Medium [] Low Motivation [x] Asks Questions; eager to learn [] Needs education [] Extreme anxiety [] uncooperative [] Denies need for education REVIEW OF SYSTEMS: Do you feel sleepy during the day? [x] Yes [] No Do you get short of breath when walking up two flights of stairs? [x] Yes [] No Do you get chest pains when walking up two flights of stairs? [] Yes [x] No Do you suffer from back pain? [x] Yes [] No Do you suffer from knee pain? [x] Yes [] No Do you or have you had any of the following? Cardiovascular YES NO Respiratory YES NO High Blood Pressure [x] [] COPD [] [x] Heart Attack [] [x] TB/Positive skin Test [] [x] Congestive Heart Failure [] [x] Obstructive Sleep Apnea [] [x] Coronary Artery Disease [] [x] Asthma [] [x] Circulation Problems [] [x] Activity Intolerance [] [x] Gastrointestinal YES NO Peripheral Vascular Disease [] [x] Gastric Problems [] [x] Colorectal problems [] [x] Hematological YES NO Ulcer disease [] [x] Bleeding Tendencies [] [x] Liver disease [] [x] Blood Transfusion last 30d [] [x] Gallstones [] [] Anemia [] [x] Refulx or Heartburn [x] [] Blood Clots [] [x] High Cholesterol [] [x] Muscoloskeletal YES NO High Triglycerides [] [x] Joint Limitations [] [x] Muscle Weakness [] [x] Eyes, Ears, Nose, Throat YES NO Multiple Sclerosis [] [x] Cataracts [] [x] Arthritis [x] [] Glasses [] [x] Blurred Vision [] [x] Cancer [] [x] Hearing Aids [] [x] Type: Ringing in Ears [] [x] Difficulty Swallowing [] [x] Encodrine YES NO Diabetes [] [x] Neurological YES NO Thyroid [] [x] Stroke [] [x] Seizure [] [x] Psychiatric Disorder YES NO Dizziness/Blackouts/Fainting [] [x] Depression [] [x] Memory Impairement [] [x] Bipolar [] [x] Parkinson's [] [x] Anxiety disorder [] [x] Genitourinary/Seat Cover Maker YES NO Skin Intact [x] [] Urinary Infection [] [x] Stones [x] [] Sleep YES NO Kidney Disease [] [x] Excessive daytime sleepiness [x] [] Incontinent [] [x] Snoring [x] [] Irregular menstrual cycles [] [] Unrefreshed sleep [x] [] Possibly ? [] [] Other: Date of LMP: Preferred location: PREVIOUS ANESTHESIA Has any family member had a problem with anesthesia in the past? [x] No [] Yes If yes, describe: Have you had a problem with anesthesia in the past? [x] No [] Yes If yes, describe: Do you have any difficulty moving your head [id number]? [x] No [] Yes Do you have difficulty opening or closing your jaw? [x] No [] Yes PRESENT ILLNESS: Weight Parameters Initial Bariatric Consult 11/27/2023 Weight: 116.2 kg (256 lb 3.2 oz) Height: 172.2 cm (5' 7.8 ) Body mass index is 39.19 kg/m . IMMUNIZATION STATUS Immunization History Administered Date(s) Administered COVID-19, mRNA, LNP-S, PF, 100mcg/0.5mL Dose 02/22/2021 COVID-19, mRNA, LNP-S, PF, 30mcg/0.3mL Dose 05/10/2020, 05/31/2020 FALLS ASSESSMENT [x] LOW RISK FOR FALLS [] MODERATE RISK FOR FALLS [] Difficulty walking/selfcare [] Falls in the past 2 months [] Suspicion of Clinician [] Other: SMOKING CESSATION [] Not needed [x] Instructed to stop smoking - just obtained nicotine patches [] Referred to [facility] Nicotine cessation program VTE SCREEN [] Family hx DVT/PE / [] Personal hx of DVT/PE [x] Denies any family or personal hx of DVT/PE Physician Review [x] Past medical, family, & social history reviewed and discussed with patient. Review of surgery and post-surgical changes (by surgeon for surgical patients only) [x] Lifelong diet expectations reviewed with patient [x] Need for lifelong vitamin supplementation reviewed with patient [x] Physical activity [x] Portion control PHYSICAL EXAMINATION: BP (!) 142/91 Pulse 84 Ht 172.2 cm (5' 7.8 ) Wt 116.2 kg (256 lb 3.2 oz) BMI 39.19 kg/m General Appearance: Alert, cooperative, no distress, appears stated age Head: Normocephalic, without obvious abnormality, atraumatic Eyes: No scleral icterus Ears: Normal external ear, both ears Nose: Nares normal, septum midline Throat: Lips, mucosa normal Neck: Supple, symmetrical, trachea midline Lungs: Respirations unlabored Chest Wall: No tenderness or deformity Heart: Regular rate Breast Exam: Deferred. Abdomen: Soft, non-tender, nondistended, lap sites well healed, no palpable hernia Genitalia: Deferred. Rectal: Deferred. Extremities: Extremities normal, atraumatic, no cyanosis or edema Skin: Skin color, texture, turgor normal, no rashes or lesions Neurologic: canteen operator intact, normal strength. Alert and oriented. Follows commands and moves all 4. BP (!) 142/91 Pulse 84 Ht 172.2 cm (5' 7.8 ) Wt 116.2 kg (256 lb 3.2 oz) BMI 39.19 kg/m Physical Exam RECOMMENDATIONS: We spent a great deal of time discussing the risks and benefits of Robotic Laparoscopic or Open Sleeve Gastrectomy, and we discussed the need for post-operative visit compliance, behavior modifications and diet changes, protein and vitamin supplementation, as well as routine scheduled and dedicated exercise. We discussed the potential weight loss benefit of approximately 60-70% of her excess body weight at 12-18 months post-op, as well as the possibility of insufficient weight loss or weight gain after 2 years post-operative time. Upon completion of all required pre-operative testing we will submit for insurance pre-authorization. PLAN: Assessment No diagnosis found. Plan Initial Testing Procedure: Laparoscopic sleeve gastrectomy Imaging: Upper GI Psychological Assessment: Psychological Evaluation and Clearance Nutrition Assessment: Bariatric Nutrition Assessment and Clearance Other Consultations: PCP Final Testing Screening Chest Xray and EKG at [facility] appointment Labwork: Final Lab Tests at [facility] appointment Please note that this chart was generated using voice recognition M*Modal dictation software. Although every effort was made to ensure the accuracy of this automated emergency vehicle operations instructor, some errors in emergency vehicle operations instructor may have occurred. documented in this encounter [facility] Discharge instructions 10-27-2022 Discharge InstructionsAttachments Note [...] cannot be sent through Care Everywhere.Flank Pain (Czech)documented in this encounter [facility] Evaluation note Note Date & Type Note Facility Evaluation note Diagnosis Left flank pain- Primary Abdominal pain, unspecified site documented in this encounter [facility] Evaluation note Note Date & Type Note Facility Evaluation note Diagnosis Obesity, Class II, BMI 35-39.9- Primary Gastroesophageal reflux disease, unspecified whether esophagitis present documented in this encounter [facility] Instructions Note Date & Type Note Facility Instructions Not on filedocumented in this en counter [facility] Summary Purpose Family History No Family History Records FoundNo Family History Records FoundNo Family History Records FoundNo Family History Records Found Advance Directives No Advanced Directives Records FoundNo Advanced Directives Records FoundNo Advanced Directives Records FoundNo Advanced Directives Records Found Additional Source Comments INFORMATION SOURCE (unrecogn ized section and content) DATE CREATED AUTHOR 08/22/2017 [facility] DATE CREATED AUTHOR AUTHOR'S ORGANIZ ATION 04/28/2022 [facility] DATE CREATED AUTHOR AUTHOR'S ORGANIZ ATION 08/06/2023 [facility] DATE CREATED AUTHOR AUTHOR'S ORGANIZ ATION 11/29/2023 [facility] Reason for Visit (unrecogniz ed section and content) Reason Comments Flank Pain Left flank pain ongo ing for the past few days. on 4th day of macrobid, completed 2 other courses of antibiotics for ongoing UTI for 3 weeks. Reason Comments New Patient Scheduled Active and Recently Administ ered Medications (unrecognized section and content) Medication Order 10/25/2022 10/26/2022 10/27/2022 ketorolac (TORADOL) injection 15 mg (COMPLETED) 15 mg, IntraVENous, ONCE, 1 dose, On Thu10/27/22 at 1900, Do not administer for more than 5 days. 1901 (Given - Provid er: Karen Nuno RN) [...] be given over 10 to 15 minutes 175 (New Bag - Prov ider: Karen Nuno RN)2002 (Stopped - Provider: Karen Nuno RN) PRN Medication Order 10/25/2022 10/26/2022 10/27/2022 iopamidol (ISOVUE-370) 76 % injection 75 mL (COMPLETED) 75 mL, IntraVENous, IMG ONCE PRN, 1 dose, Starting on Thu10/27/22 at 1746, Until Thu10/27/22 at 1749, Other 1749 (Given - Provid er: Rima Gleason) Care Teams (unrecognized sec tion and content) Put In Beat Adjuster Relationship Specialty Start Date End Date Francia Rowell MD PCP - General 04/30/17 FOR RECORDS PERTAINING TO PATIENTS WHO ARE [...] BE BASED ON THE PRIMARY CLINICAL RECORDS. [facility] [employer] [facility]. provides no warranty or guarantee of the accuracy or completeness of information in this document.
== END 2023-11-30 13:06 | disposition home or self-care (01) ==
LOC: VC 13:05
PROVIDERS: PCP Family Medicine; Visit Provider Family Medicine
DX: R60.0 Localized edema (principal)
CPT/HCPCS: 93970

== ENCOUNTER 2023-12-04 08:47 | Outpatient (OUT) | payer OTHER, SELFPAY ==
--- NOTE | 2023-12-04 07:44 | V.VEINS.HP ---
Vital Signs 12/04/23 09:56 Height 5 ft 7 in Weight 105 kg BMI 36.3 BP 144/80 H BP Location Right Brachial BP Position Sitting BP Cuff Size Adult BP Source Manual Cuff Respiration 20 Pulse 76 Pulse Source Monitor Pulse Oximetry (%) 97 Oxygen Delivery Method Room Air Comment The patient's blood pressure is elevated. Varicose Veins Patient in this day for consult with physician for bilateral painful varicose veins. Referred by Dr. Rowell. She had a bilateral reflux ultrasound to lower extremities on 11/30/23 with results showing bilateral incompetent varicose veins. Developed BLE edema 1 year ago. Left worse than right. Recent months has been worsening. She is on Lasix with some relief. She works 2 - 12 hour shifts on her feet standing or sitting. She has worn compression stockings sine May of this year. Raj Nogueira MD personally performed the services described in this documentation, as scribed by Christal Lima RN in my presence and it is both accurate and complete. Christal Nogueira RN, am scribing for, and in the presence of, Dr. Raj Helms and in the presence of the patient. thigh: bilateral, knee: bilateral, calf: bilateral, ankle: bilateral and alamo: bilateral aching, cramping, dull and tender 5 1 year Worsened in recent months: Yes standing and sitting elevating extremities and compression stockings Reports firmness, heaviness, restless legs, pruritus, limb pain, edema and leg edema History of lower extremity trauma: No Superficial thrombophlebitis: No Family history of varicose veins: yes Has patient had previous lower extremity venous surgery: No Patient has previously received the following treatment(s) for lower extremity varicose veins: Reports none Does patient have a history of : yes Does patient intend to have future pregnancies: no Has patient had lower extremity venous scan with relux testing: Yes Support hose used: Yes Problems walking or doing physical activity: Yes How does it affect you: difficulty standing at work for long periods Do you walk much: Yes Do you stand much: Yes Review of Systems ROS Narrative Raj Nogueira MD personally performed the services described in this documentation, as scribed by Christal Lima RN in my presence and it is both accurate and complete. Christal Nogueira RN, am scribing for, and in the presence of, Dr. Raj Helms and in the presence of the patient. 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, unspecified (ICD-10) Rotator cuff arthropathy of right shoulder ?M12.811 - Other specific arthropathies, not elsewhere classified, right shoulder (ICD-10) Hypertension ?I10 - Essential (primary) hypertension (ICD-10) Tachycardia ?R00.0 - Tachycardia, unspecified (ICD-10) Pain due to varicose veins of both lower extremities ?I83.813 - Varicose veins of bilateral lower extremities with pain (ICD-10) Surgical History (Updated 12/04/23 @ 09:13 by Christal Lima RN) History of appendectomy ?Z90.49 - Acquired absence of other specified parts of digestive tract (ICD-10) History of cholecystectomy ?Z90.49 - Acquired absence of other specified parts of digestive tract (ICD-10) H/O: hysterectomy ?Z90.710 - Acquired absence of both cervix and uterus (ICD-10) History of arthroplasty of left ankle ?Z96.662 - Presence of left artificial ankle joint (ICD-10) Family History (Updated 12/04/23 @ 09:16 by Christal Lima RN) Grandmother Pain due to varicose veins of both lower extremities Family history of CHF (congestive heart failure) Family history of cancer Family history of diabetes mellitus Family history of hypertension Niece Lupus Grandfather Family history of COPD (chronic obstructive pulmonary disease) Family history of hypertension Father Family history of cancer Sister Family history of diabetes mellitus Family history of hypertension Mother Family history of hypertension Social History (Updated 12/04/23 @ 09:17 by Christal Lima RN) Within the past year, how often did you have a drink containing alcohol: monthly or less Smoking status: Current some day smoker Nicotine containing products detail: 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 Non-prescribed substance use: denies use Meds Home Medications and Allergies Home Medications ?Medication ?Instructions ?Recorded ?Confirmed ?Type triamcinolone acetonide 0.1 % applic topical BID 09/04/23 History topical cream furosemide 40 mg tablet (Lasix) 40 mg PO DAILY 12/04/23 12/04/23 History meloxicam 15 mg tablet 15 mg PO DAILY 12/04/23 12/04/23 History metoprolol succinate 50 mg 25 mg PO BID 12/04/23 12/04/23 History tablet,extended release 24 hr (Toprol XL) nicotine 14 mg/24 hr daily 1 patch transdermal DAILY 12/04/23 12/04/23 History transdermal patch pantoprazole 20 mg tablet,delayed 20 mg PO DAILY 12/04/23 12/04/23 History release (Protonix) potassium chloride 20 mEq oral 20 meq PO DAILY 12/04/23 12/04/23 History packet (Klor-Con) Allergies Allergy/AdvReac Type Severity Reaction Status Date / Time hydromorphone (From Dilaudid) Allergy Severe Swelling Verified 09/04/23 20:07 of the Eye Exam Narrative Exam Narrative: IRaj MD personally performed the services described in this documentation, as scribed by Christal Lima RN in my presence and it is both accurate and complete. IChristal RN, am scribing for, and in the presence of, Dr. Raj Helms and in the presence of the patient. Constitutional Documenting provider has reviewed patient's vital signs: yes Common normals: oriented x3 Nutritional appearance: overweight Lymph Lymphatic: no lymphedema noted Cardio Peripheral pulses: posterior tibial pulses present and dorsalis pedis pulses present Extremity General: calf tenderness, edema and other findings Right lower extremity: lower leg Right lower leg: inspection and palpation Left lower extremity: lower leg Left lower leg: inspection and palpation Neuro Common normals: oriented x3 Assessment and Plan Assessment and Plan (1) Pain due to varicose veins of both lower extremities: Plan Explained vein anatomy and physiology to patient. Explained the development of varicose veins to patient.? Explained varicose vein treatments to patient, including laser ablation, microfoam chemical ablation (Varithena), injection sclerotherapy and microphlebectomy.? Explained potential risks and benefits of varicose vein treatments.? Patient verbalizes understanding and wants to pursue varicose vein treatment.? Dr. Helms examines patient and reviews results of bilateral leg reflux u/s.? Patient and Dr. Helms creates a plan of care.? Patient also agrees to purchase bilateral thigh high compression stockings and wear them as educated.? Patient also educated on exercise and rest elevation of bilateral legs. Plan is to treat with bilateral EVLT's, bilateral Varithena and bilateral sclerotherapy. Insurance requires prior authorization. Will call patient to schedule. IRaj MD personally performed the services described in this documentation, as scribed by Christal Lima RN in my presence and it is both accurate and complete. IChristal RN, am scribing for, and in the presence of, Dr. Raj Helms and in the presence of the patient.
--- NOTE | 2023-12-04 07:49 | W.VEIN ---
Discharge Plan Discharge Disposition: Home, Self-Care Outpatient Diagnostics: VC Endovenous Ablation 1VeinLT (Routine) Timeframe: 2 Months Facility: [facility] - Location: [facility] Ordered By: Raj Helms Follow Up Appointments: will call patient to schedule. Plan of Treatment: prior authorization required. Will call patient to schedule when approved. Patient Instructions: Polidocanol (By injection) (Asclera, Varithena), Endovenous Ablation (GEN) Print Language: Mohawk Discharge Date/Time: 12/04/23 10:32
--- NOTE | 2023-12-04 08:58 | VEIN_ITS ---
Patient Name: TAMY CHAPIN MR#: [id number] : 1980 Exam Date: 12/04/2023 Ordering Doctor: DR Jorge L Rowell . RADIOLOGY REPORT PROCEDURE: [facility] - OFFICE VISIT INITIAL COMPARISON: None. PROGRESS NOTES: [age] year old female who presents with a approximately 5 year history of lower extremity swelling, heaviness, pain, restless legs, itching. The patient's left leg symptoms are worse than the right. There has been a progression of symptoms over time. This increases with prolonged leg dependency. The patient describes an improvement with rest and elevation. The patient denies any signs and symptoms to suggest arterial ischemia. The patient describes a family history varicose veins, congestive heart failure, diabetes, cancer. The patient has drinking and smoking history of occasional alcohol consumption; current every day smoker. Patient has a past medical history significant for varicose veins, tachycardia, hypertension. The patient denies a history of deep venous thrombus or pulmonary embolus. See separate history and physical for medication list. No prior treatment for varicose or spider veins. Current use of compression stockings. After review of nurse notes, history and physical exam I discussed at length the pathophysiology of venous hypertension and possible treatments, therapies and strategies available. We discussed at length the importance of elevating the lower extremities above the level of the heart, increased physical activity and compression stocking use. Ultrasound venous reflux study performed on November 30, 2023 was discussed at length with the patient. The report demonstrates abnormally dilated incompetent great saphenous and anterior accessory saphenous veins bilaterally. PHYSICAL EXAM: The right leg demonstrates several varicosities, several large reticular veins and spider veins, no ulceration, mild-moderate edema, no skin discoloration. The left leg demonstrates several varicosities, several large reticular and spider veins, no ulceration, moderate edema, no skin discoloration. Both thighs, legs and feet were symmetrically warm to the touch. Good posterior tibial and dorsalis pedis pulses were present bilaterally. VEIN/VC Facility EST Comprehensive IMPRESSION: 1. Bilateral lower extremity venous insufficiency 2. Bilateral lower extremity varicose veins 3. Bilateral lower extremity subcutaneous edema 4. No flow significant arterial disease 5. CEAP: C3, EC, , [place] PLAN: 1. Continued use of compression stockings 2. Elevated legs and increased physical activity symptomatic relief 3. Intravenous laser ablation of left great saphenous, right great saphenous, left anterior accessory saphenous, and right anterior accessory saphenous veins. 4. Microfoam chemical ablation of incompetent branch saphenous varicosities. 5. Sclerotherapy for large reticular and spider veins bilaterally. Nurse notes, history and physical were reviewed and confirmed, see attached forms. The nurse was present throughout the physical exam and consultation Dictated by: Raj Helms M.D. on 12/04/2023 at 11:07 Approved by: Raj Helms M.D. on 12/04/2023 at 11:12
--- OUTSIDE RECORDS SUMMARY | 2023-12-04 09:07 | XMS_ITS | CCD ---
Author Organization [facility] Care Team Providers Care Identification Officer Name Role Phone STEPANIC, ARIES C Unavailable Unavailable STEPANIC, ARIES C Unavailable Unavailable HOY, FRANCIA Unavailable Unavailable Bunny Briggs Unavailable Unavailable STEPANIC, ARIES C Unavailable Unavailable STEPANIC, ARIES C Unavailable Unavailable JENNIFER FRANCIA Unavailable Unavailable HOY ., DR FELDMAN [...] Unavailable HOY ., DR FELDMAN Consulting Unavailable BUTTE, DR MAURICIO Fraser Consulting Unavailable Unavailable Primary Care Provider UnavailANNA Elmore Attending Unavailable Francia Rowell MD Primary Care Provider [phone] JAYLEN BROWN Attending Unavailable FRANCIA ROWELL Referring Unavailable FRANCIA ROWELL Primary Care Unavailable JAYLEN BROWN Referring Unavailable FRANCIA ROWELL Primary Care Unavailable JAYLEN BROWN Referring Unavailable FRANCIA ROWELL Primary Care Unavailable Allergies Allergy Classification Reported Allergen(s) Allergy Type Date of Onset Reaction(s) Facility (1 source) acetaminophen / oxyCODONE; Translations: [Percocet 5/325] Drug Allergy [facility] [place] Repository (2 sources) HYDROmorphone; Translations: [Dilaudid] Drug Allergy [facility] [place] Repository (1 source) egg extract Drug Allergy 7 [facility] Repository (4 sources) HYDROmorphone; Translations: [HYDROMORPHONE] Drug Allergy 8 Facial Swelling [facility] Medications Current Medications Medication Drug [...] Class II, BMI 35-39.9] 11-27-2023 Chronic Unclassified (2 sources) Obesity, class 2; Translations: [Obesity, class 2] [...] Name Value Interpretation Reference Range Facility CBC AND AUTO DIFFon 12-02-19 ABSOLUTE BASOPHIL 0.0 X10E9/L Normal 0.0-0.2 [facility] Comment on above: Performed By: #### L IVR, 2131-10, CBCA, 23638-0, 3016-3, 2498- 4, 2731-8, HA1C #### [facility] ([id number]) [address] [facility], [address] [place] [address] ABSOLUTE NEUTROPHIL 7.1 X10E9/L High 1.5-6.6 [facility] Comment on above: Performed By: #### L IVR, 2131-10, CBCA, 78460-5, 3016-3, 2498- 4, 2731-8, HA1C #### [facility] ([id number]) [address], [address] [place] [address] Basophils/100 WBC (Bld) 0.4 % Normal [facility] Comment on above: Performed By: #### L IVR, 2131-10, CBCA, 92633-7, 3016-3, 2498- 4, 2731-8, HA1C #### [facility] ([id number]) [address], [address] [place] [address] Eosinophils (Bld) [#/Vol] 0.1 10*3/uL Normal 0.0-0.4 [facility] Comment on above: Performed By: #### L IVR, 2131-10, CBCA, 42733-8, 3016-3, 2498- 4, 2731-8, HA1C #### [facility] ([id number]) [address], [address] [place] [address] Eosinophils/100 WBC (Bld) 0.6 % Normal [facility] Comment on above: Performed By: #### L IVR, 2131-10, CBCA, 24397-8, 3016-3, 2498- 4, 2731-8, HA1C #### [facility] ([id number]) [address], [address] [place] [address] Erythrocyte distribution width (RBC) [Ratio] 14.1 % Normal 11.5-15.0 [facility] Comment on above: Performed By: #### L IVR, 2131-10, CBCA, 92376-9, 3016-3, 2498- 4, 2731-8, HA1C #### [facility] ([id number]) [address], [address] [place] [address] Hematocrit (Bld) [Volume fraction] 42.9 % Normal 35-47 [facility] Comment on above: Performed By: #### L IVR, 2131-10, CBCA, 61120-8, 3016-3, 2498- 4, 2731-8, HA1C #### [facility] ([id number]) [address], [address] [place] [address] Hemoglobin (Bld) [Mass/Vol] 14.5 g/dL Normal 11.7-15.5 [facility] Comment on above: Performed By: #### L IVR, 2131-10, CBCA, 40598-6, 3016-3, 2498- 4, 2731-8, HA1C #### [facility] ([id number]) [address], [address] [place] [address] Lymphocytes (Bld) [#/Vol] 2.5 10*3/uL Normal 1.0-3.5 [facility] Comment on above: Performed By: #### L IVR, 2131-10, CBCA, 28361-1, 3016-3, 2498- 4, 2731-8, HA1C #### [facility] ([id number]) [address], [address] [place] [address] Lymphocytes/100 WBC (Bld) 24.0 % Normal [facility] Comment on above: Performed By: #### L IVR, 2131-10, CBCA, 53999-4, 3016-3, 2498- 4, 2731-8, HA1C #### [facility] ([id number]) [address], [address] [place] [address] MCH (RBC) [Entitic mass] 31.9 pg Normal 27-34 [facility] Comment on above: Performed By: #### L IVR, 2131-10, CBCA, 49582-5, 3016-3, 2498- 4, 2731-8, HA1C #### [facility] ([id number]) [address], [address] [place] [address] MCHC (RBC) [Mass/Vol] 33.9 g/dL Normal 32-36 [facility] Comment on above: Performed By: #### L IVR, 2131-10, CBCA, 99698-2, 3016-3, 2498- 4, 2731-8, HA1C #### [facility] ([id number]) [address], [facility] [address] [place] [address] MCV (RBC) [Entitic vol] 94 fL Normal 80-100 [facility] Comment on above: Performed By: #### L IVR, 2131-10, CBCA, 74566-9, 3016-3, 2498- 4, 2731-8, HA1C #### [facility] ([id number]) [address], [facility] [address] [place] [address] Monocytes (Bld) [#/Vol] 0.6 10*3/uL Normal 0-0.9 [facility] Comment on above: Performed By: #### L IVR, 2131-10, CBCA, 93413-1, 3016-3, 2498- 4, 2731-8, HA1C #### [facility] ([id number]) [address], [facility] [address] [place] [address] Monocytes/100 WBC (Bld) 6.2 % Normal [facility] Comment on above: Performed By: #### L IVR, 2131-10, CBCA, 53039-5, 3016-3, 2498- 4, 2731-8, HA1C #### [facility] ([id number]) [address], [facility] [address] [place] [address] Neutrophils/100 WBC (Bld) 68.8 % Normal [facility] Comment on above: Performed By: #### L IVR, 2131-10, CBCA, 38382-5, 3016-3, 2498- 4, 2731-8, HA1C #### [facility] ([id number]) [address] [place] [address] Platelet mean volume (Bld) [Entitic vol] 8.3 fL Normal 7-12 [facility] Comment on above: Performed By: #### L IVR, 2131-10, CBCA, 54251-2, 3016-3, 2498- 4, 2731-8, HA1C #### [facility] ([id number]) [address], [address] [place] [address] Platelets (Bld) [#/Vol] 268 10*3/uL Normal 150-450 [facility] Comment on above: Performed By: #### L IVR, 2131-10, CBCA, 79847-8, 3016-3, 2498- 4, 2731-8, HA1C #### [facility] ([id number]) [address] [address] [place] [address] RBC COUNT 4.55 X10E12/L Normal 3.80-5.20 [facility] Comment on above: Performed By: #### L IVR, 2131-10, CBCA, 07975-1, 3016-3, 2498- 4, 2731-8, HA1C #### [facility] ([id number]) [address] [address] [place] [address] WBC (Bld) [#/Vol] 10.3 10*3/uL Normal 4.0-11.0 [facility] Comment on above: Performed By: #### L IVR, 2131-10, CBCA, 64625-1, 3016-3, 2498- 4, 2731-8, HA1C #### [facility] ([id number]) [address] [address] [place] [address] FL UGI WITH ESOPHAGUSon 10-2 3-2023 FL UGI WITH ESOPHAGUS FL UGI WITH ESOPHAGUS History: Preoperative assessment for bariatric surgery. Exam/Technique: Double contrast upper GI exam. The patient ingested effervescent granules, thick and thin barium in the upright and recumbent positions. 1.3 minutes of fluoroscopy time was utilized. Total images: 16 Reference air kerma 31.7 mGy. Comparison: None applicable Findings: The esophagus shows normal course and caliber. No segments of inflammation, ulceration or narrowing. No evidence for hiatal hernia. Mild reflux lower third of esophagus demonstrated. Gastric contour is normal. No mucosal lesions, ulceration or inflammation. Duodenal sweep is retroperitoneal and the ligamentum of Treitz is within the left upper quadrant. Normal proximal mucosal fold pattern of small bowel. IMPRESSION: * Normal anatomy. Mild reflux lower third esophagus. Otherwise negative study. Finalized by Enrique Dubois DO on 12/02/2023 1:28 PM Normal [facility] HGB A1C (GLYCO-HGB)on 2023 Glucose [Mass/Vol] 100 mg/dL Normal [facility] Comment on above: Performed By: #### L IVR, 2131-10, CBCA, 36411-8, 3016-3, 2498- 4, 2731-8, HA1C #### [facility] ([id number]) [address] [facility], [address] [place] [address] HbA1c (Bld) [Mass fraction] 5.1 % Normal 4.4-5.6 [facility] Comment on above: Result Comment: NOTE ADA Guidelines Result HgbA1c Normal : less than 5.7 % Prediabetes : 5.7 % to 6.4 % Diabetes : > 6.4 % Use with caution in patients with abnormal hemoglobin variants as the half-life of red blood cells and in vivo glycation rates are affected. Performed By: #### L IVR, 2131-10, CBCA, 25384-1, 3016-3, 2498-4, 2731-8, HA1C #### [facility] ([id number]) [address] [facility], [address] [place] [address] IRONon 12-02-2023 Iron [Mass/Vol] 87 ug/dL Normal 50-170 [facility] Comment on above: Performed By: #### L IVR, 2131-10, CBCA, 20203-2, 3016-3, 2498- 4, 2731-8, HA1C #### [facility] ([id number]) [address], [address] [place] [address] LIVER PANELon 12-02-2023 Albumin [Mass/Vol] 3.6 g/dL Normal 3.2-5.3 [facility] Comment on above: Performed By: #### L IVR, 2131-10, CBCA, 54216-7, 3016-3, 2498- 4, 2731-8, HA1C #### [facility] ([id number]) [address], [address] [place] [address] ALP [Catalytic activity/Vol] 58 U/L Normal 39-130 [facility] Comment on above: Performed By: #### L IVR, 2131-10, CBCA, 43291-6, 3016-3, 2498- 4, 2731-8, HA1C #### [facility] ([id number]) [address], [address] [place] [address] ALT [Catalytic activity/Vol] 14 U/L Normal 0-31 [facility] Comment on above: Performed By: #### L IVR, 2131-10, CBCA, 81185-1, 3016-3, 2498- 4, 2731-8, HA1C #### [facility] ([id number]) [address], [address] [place] [address] AST [Catalytic activity/Vol] 14 U/L Normal 0-41 [facility] Comment on above: Performed By: #### L IVR, 9, CBCA, 08969-2, 3016-3, 2498- 4, 2731-8, HA1C #### [facility] ([id number]) [address], [address] [place] [address] Bilirubin [Mass/Vol] 0.3 mg/dL Normal 0.3-1.2 [facility] Comment on above: Performed By: #### L IVR, 2131-10, CBCA, 12251-7, 3016-3, 2498- 4, 2731-8, HA1C #### [facility] ([id number]) [address], [address] [place] [address] Bilirubin.direct [Mass/Vol] 0.0 mg/dL Normal 0.0-0.4 [facility] Comment on above: Performed By: #### L IVR, 2131-10, CBCA, 32599-4, 3016-3, 2498- 4, 2731-8, HA1C #### [facility] ([id number]) [address] [facility], [address] [place] [address] Protein [Mass/Vol] 6.6 g/dL Normal 6.0-8.0 [facility] Comment on above: Performed By: #### L IVR, 2131-10, CBCA, 21668-8, 3016-3, 2498- 4, 2731-8, HA1C #### [facility] ([id number]) [address], [address] [place] [address] Parathyrin.intact [Mass/Vol] on 12-02-2023 PTH INTACT 23 pg/mL Normal 12-88 [facility] Comment on above: Performed By: #### L IVR, 2131-10, CBCA, 03320-4, 3016-3, 2498- 4, 2731-8, HA1C #### [facility] ([id number]) [address], [address] [place] [address] TSH Qnon 12-02-2023 TSH 1.50 uIU/mL Normal 0.49-4.67 [facility] Comment on above: Performed By: #### L IVR, 2131-10, CBCA, 56501-9, 3016-3, 2498- 4, 2731-8, HA1C #### [facility] ([id number]) [address] [facility], [address] [place] [address] VITAMIN B12on 12-02-2023 Cobalamin (Vitamin B12) [Mass/Vol] 541 pg/mL Normal 180-914 [facility] Comment on above: Performed By: #### L IVR, 2131-10, CBCA, 50618-9, 3016-3, 2498- 4, 2731-8, HA1C #### [facility] ([id number]) [address] [facility], [address] [place] [address] Vitamin D+Metabolites [Mass/ Vol]on 12-02-2023 VITAMIN D 25 HYD TOT 24.3 ng/mL Low 30-100 [facility] Comment on above: Result Comment: Vitamin D status 25 [place] Vitamin D Deficiency <20 ng/mL Insufficiency 20-29 ng/mL Sufficiency 30-100 ng/mL Toxicity >100 ng/mL NOTE: A pediatric reference range has not been established by the marine pilot of this kit. The [place] [employer] recommends a Vitamin D level of = or >20ng/mL in infants and children. Performed By: #### L IVR, 2131-10, CBCA, 82738-1, 3016-3, 2498-4, 2731-8, HA1C #### [facility] ([id number]) [address] [facility], [address] [place] [address] CBC with Diffon 08-05-2023 Abs. Basophil <0.03 Normal 0.00-0.20 [facility] Comment on above: Performed By: #### T SH, CDP #### [facility] [address] [place] [address] Physical Anthropologist: Mauricio Irby MD #### LIPR, FT3, INSU, T4, FE, GLYHGB #### [address] [place] [address] Physical Anthropologist: Casa Medrano MD Abs.Imm.Granulocy te 0.05 k/uL Normal 0.00-0.30 [facility] Comment on above: Performed By: #### T SH, CDP #### [address] [place] [address] Physical Anthropologist: Mauricio Irby MD #### LIPR, FT3, INSU, T4, FE, GLYHGB #### [place] [address] Physical Anthropologist: Casa Medrano MD Abs.Neutrophil (Seg) 7.71 k/uL Normal 1.50-8.10 [facility] Comment on above: Performed By: #### T SH, CDP #### [address] [place] [address] Physical Anthropologist: Mauricio Irby MD #### LIPR, FT3, INSU, T4, FE, GLYHGB #### [place] [address] Physical Anthropologist: Casa Medrano MD Basophils/100 WBC (Bld) 0 % Normal 0-2 [facility] Comment on above: Performed By: #### T SH, CDP #### [address] [place] [id number] ( Physical Anthropologist: Mauricio Irby MD #### LIPR, FT3, INSU, T4, FE, GLYHGB #### [place] [address] Physical Anthropologist: Casa Medrano MD Eosinophils (Bld) [#/Vol] 0.10 10*3/uL Normal 0.00-0.44 [facility] Comment on above: Performed By: #### T SH, CDP #### [address] [place], [place] 4138283 Physical Anthropologist: Mauricio Irby MD #### LIPR, FT3, INSU, T4, FE, GLYHGB #### [address] [id number] Physical Anthropologist: Casa Medrano MD Eosinophils/100 WBC (Bld) 1 % Normal 1-4 [facility] Comment on above: Performed By: #### T SH, CDP #### [address] [place] [address] Physical Anthropologist: Mauricio Irby MD #### LIPR, FT3, INSU, T4, FE, GLYHGB #### [address] [id number] Physical Anthropologist: Casa Medrano MD Erythrocyte distribution width (RBC) [Ratio] 12.5 % Normal 11.8-14.4 [facility] Comment on above: Performed By: #### T SH, CDP #### [address] [place] 20[address]83 Physical Anthropologist: Mauricio Irby MD #### LIPR, FT3, INSU, T4, FE, GLYHGB #### [address] [id number] Physical Anthropologist: Casa Medrano MD Hematocrit (Bld) [Volume fraction] 45.1 % Normal 36.3-47.1 [facility] Comment on above: Performed By: #### T SH, CDP #### [address] [place] [address] Physical Anthropologist: Mauricio Irby MD #### LIPR, FT3, INSU, T4, FE, GLYHGB #### [address] [id number] Physical Anthropologist: Casa Medrano MD Hemoglobin (Bld) [Mass/Vol] 15.2 g/dL High 11.9-15.1 [facility] Comment on above: Performed By: #### T SH, CDP #### [facility] [address] [place] [address] [address] [place] 2085983 Physical Anthropologist: Mauricio Irby MD #### LIPR, FT3, INSU, T4, FE, GLYHGB #### [address] [id number] Physical Anthropologist: Casa Medrano MD Immature granulocytes/100 WBC (Bld) 1 % High 0 [facility] Comment on above: Performed By: #### T SH, CDP #### [facility] [address] [place] [address] Dr[place] 2085983 Physical Anthropologist: Mauricio Irby MD #### LIPR, FT3, INSU, T4, FE, GLYHGB #### [place] [address] Physical Anthropologist: Casa Medrano MD Lymphocytes (Bld) [#/Vol] 2.55 10*3/uL Normal 1.10-3.70 [facility] Comment on above: Performed By: #### T SH, CDP #### [facility] [address] [place] [address] Dr[place] 2085983 Physical Anthropologist: Mauricio Irby MD #### LIPR, FT3, INSU, T4, FE, GLYHGB #### [address] [address] Physical Anthropologist: Casa Medrano MD Lymphocytes/100 WBC (Bld) 23 % Low 24-43 [facility] Comment on above: Performed By: #### T SH, CDP #### [address] [place] 2085983 Physical Anthropologist: Mauricio Irby MD #### LIPR, FT3, INSU, T4, FE, GLYHGB #### [address] [id number] Physical Anthropologist: Casa Medrano MD MCH (RBC) [Entitic mass] 31.6 pg Normal 25.2-33.5 [facility] Comment on above: Performed By: #### T SH, CDP #### [address] [place] [address] Physical Anthropologist: Mauricio Irby MD #### LIPR, FT3, INSU, T4, FE, GLYHGB #### [address] [phone] Physical Anthropologist: Casa Medrano MD MCHC (RBC) [Mass/Vol] 33.7 g/dL Normal 28.4-34.8 [facility] Comment on above: Performed By: #### T SH, CDP #### [address] [place] 2085983 Physical Anthropologist: Mauricio Irby MD #### LIPR, FT3, INSU, T4, FE, GLYHGB #### [address] [phone] Physical Anthropologist: Casa Medrano MD MCV (RBC) [Entitic vol] 93.8 fL Normal 82.6-102.9 [facility] Comment on above: Performed By: #### T SH, CDP #### [address] [place] 2085983 Physical Anthropologist: Mauricio Irby MD #### LIPR, FT3, INSU, T4, FE, GLYHGB #### [address] [place], [place] [id number] Physical Anthropologist: Casa Medrano MD Monocytes (Bld) [#/Vol] 0.60 10*3/uL Normal 0.10-1.20 [facility] Comment on above: Performed By: #### T SH, CDP #### [address] [place] [address] Physical Anthropologist: Mauricio Irby MD #### LIPR, FT3, INSU, T4, FE, GLYHGB #### [address] [place], [place] [phone] Physical Anthropologist: Casa Medrano MD Monocytes/100 WBC (Bld) 5 % Normal 3-12 [facility] Comment on above: Performed By: #### T SH, CDP #### [address] [place] [address] Physical Anthropologist: Mauricio Irby MD #### LIPR, FT3, INSU, T4, FE, GLYHGB #### [address] [phone] Physical Anthropologist: Casa Medrano MD Neutrophil (Seg) 70 % High 36-65 [facility] Comment on above: Performed By: #### T SH, CDP #### [address] [place] [address] Physical Anthropologist: Mauricio Irby MD #### LIPR, FT3, INSU, T4, FE, GLYHGB #### [address] [phone] Physical Anthropologist: Casa Medrano MD NRBC Automated 0.0 per 100 WBC Normal 0.0 [facility] Comment on above: Performed By: #### T SH, CDP #### [address] [place] [address] Physical Anthropologist: Mauricio Irby MD #### LIPR, FT3, INSU, T4, FE, GLYHGB #### [address] [place] [address] Physical Anthropologist: Casa Medrano MD Platelet mean volume (Bld) [Entitic vol] 9.2 fL Normal 8.1-13.5 [facility] Comment on above: Performed By: #### T SH, CDP #### [address] [place] [address] ( Physical Anthropologist: Mauricio Irby MD #### LIPR, FT3, INSU, T4, FE, GLYHGB #### [address] [place], [place] [id number] Physical Anthropologist: Casa Medrano MD Platelets (Bld) [#/Vol] 297 10*3/uL Normal 138-453 [facility] Comment on above: Performed By: #### T SH, CDP #### [address] [place] [address] Physical Anthropologist: Mauricio Irby MD #### LIPR, FT3, INSU, T4, FE, GLYHGB #### [address] [phone] Physical Anthropologist: Casa Medrano MD RBC (Bld) [#/Vol] 4.81 10*6/uL Normal 3.95-5.11 [facility] Comment on above: Performed By: #### T SH, CDP #### [address] [place] [address] Physical Anthropologist: Mauricio Irby MD #### LIPR, FT3, INSU, T4, FE, GLYHGB #### [address] [address] Physical Anthropologist: Casa Medrano MD WBC (Bld) [#/Vol] 11.0 10*3/uL Normal 3.5-11.3 [facility] Comment on above: Performed By: #### T SH, CDP #### [address] [place] [address] Physical Anthropologist: Mauricio Irby MD #### LIPR, FT3, INSU, T4, FE, GLYHGB #### [address] [place], [place] [phone] Physical Anthropologist: Casa Medrano MD Hemoglobin A1Con 08-05-2023 Glucose [Mass/Vol] 100 mg/dL Normal [facility] Comment on above: Result Comment: The ADA and AACC recommend providing the estimated average glucose result to permit better patient understanding of their HBA1c result. Performed By: #### C JANIE RAMIREZ, CP #### [facility] [address] [place], [place] [id number] Physical Anthropologist: Mauricio Irby MD HbA1c (Bld) [Mass fraction] 5.1 % Normal 4.0-6.0 [facility] Comment on above: Performed By: #### C JANIE RAMIREZ, CP #### [facility] [address] [place], [place] 452[address]83 Physical Anthropologist: Mauricio Irby MD Insulinon 08-05-2023 Insulin 19.2 mU/L Normal [facility] Comment on above: Performed By: #### T SH, CDP #### [address] [place], [place] 7559283 Physical Anthropologist: Mauricio Irby MD #### LIPR, FT3, INSU, T4, FE, GLYHGB #### [facility] [employer] [facility] [place], [place] [id number] Physical Anthropologist: Casa Medrano MD Reference Range Normal [facility] Comment on above: Result Comment: Fast in.6-24.9 30 min: 20-112 60 min: 29-88 90 min: 26-84 120 min: 22-79 Performed By: #### T SH, CDP #### [address] [place] [address] Physical Anthropologist: Mauricio Irby MD #### LIPR, FT3, INSU, T4, FE, GLYHGB #### [facility] [employer] [facility] [place], [place] [phone] Physical Anthropologist: Casa Medrano MD Ironon 08-05-2023 Iron [Mass/Vol] 68 ug/dL Normal 37-145 [facility] Comment on above: Performed By: #### C DP, LIP, CP #### [address] [place] [address] Physical Anthropologist: Mauricio Irby MD Lipid Profileon 08-05-2023 Cholesterol [Mass/Vol] 171 mg/dL Normal 0-199 [facility] Comment on above: Result Comment: Cholesterol Guidelines: <200 Desirable 200-240 Borderline >240 Undesirable Performed By: #### T SH, CDP #### [address] [place], [place] [phone] Physical Anthropologist: Mauricio Irby MD #### LIPR, FT3, INSU, T4, FE, GLYHGB #### [address] [phone] Physical Anthropologist: Casa Medrano MD Cholesterol in HDL [Mass/Vol] 52 mg/dL Normal >40 [facility] Comment on above: Result Comment: HDL Guidelines: <40 Undesirable 40-59 Borderline >59 Desirable Performed By: #### T SH, CDP #### [address] [place], [place] [id number] Physical Anthropologist: Mauricio Irby MD #### LIPR, FT3, INSU, T4, FE, GLYHGB #### [address] [id number] Physical Anthropologist: Casa Medrano MD Cholesterol in LDL [Mass/Vol] 100 mg/dL Normal 0-100 [facility] Comment on above: Result Comment: LDL Guidelines: <100 Desirable 100-129 Near to/above Desirable 130-159 Borderline >159 Undesirable Direct (measured) LDL and calculated LDL are not interchangeable tests. Performed By: #### T SH, CDP #### [address] [place] [address] Physical Anthropologist: Mauricio Irby MD #### LIPR, FT3, INSU, T4, FE, GLYHGB #### [facility] [employer] [address] [place] [id number] Physical Anthropologist: Casa Medrano MD Cholesterol in VLDL [Mass/Vol] 19 mg/dL Normal [facility] Comment on above: Performed By: #### T SH, CDP #### [address] [place] [address] Physical Anthropologist: Mauricio Irby MD #### LIPR, FT3, INSU, T4, FE, GLYHGB #### [address] [place], [place] [id number] Physical Anthropologist: Casa Medrano MD Cholesterol.total /Cholesterol in HDL [Mass ratio] 3.0 {ratio} Normal [facility] Comment on above: Performed By: #### T SH, CDP #### [address] [place] [address] Physical Anthropologist: Mauricio Irby MD #### LIPR, FT3, INSU, T4, FE, GLYHGB #### [address] [place], [place] [id number] Physical Anthropologist: Casa Medrano MD Triglyceride [Mass/Vol] 93 mg/dL Normal <150 [facility] Comment on above: Result Comment: Triglyceride Guidelines: <150 Desirable 150-199 Borderline 200-499 High >499 Very high Based on AHA Guidelines for fasting triglyceride, November 2011. Performed By: #### T SH, CDP #### [address] [place] [address] Physical Anthropologist: Mauricio Irby MD #### LIPR, FT3, INSU, T4, FE, GLYHGB #### [address] [place], [place] [id number] Physical Anthropologist: Casa Medrano MD T3, Freeon 08-05-2023 Free T3 [Mass/Vol] 2.90 pg/mL Normal 2.00-4.40 [facility] Comment on above: Performed By: #### C DP, LIP, CP #### [address] [place] [address] Physical Anthropologist: Mauricio Irby MD Thyroid Stim. Horm.on 2023 Thyroid Stim. Horm. 1.33 uIU/mL Normal 0.30-5.00 [facility] Comment on above: Performed By: #### T SH, CDP #### [address] [place] [address] Physical Anthropologist: Mauricio Irby MD #### LIPR, FT3, INSU, T4, FE, GLYHGB #### [facility] [employer] [address] [place], [place] [id number] Physical Anthropologist: Casa Medrano MD Thyroxine T4on 08-05-2023 T4 [Mass/Vol] 9.9 ug/dL Normal 4.5-11.7 [facility] Comment on above: Performed By: #### T SH, CDP #### [address] [place] [address] Physical Anthropologist: Mauricio Irby MD #### LIPR, FT3, INSU, T4, FE, GLYHGB #### [address] [id number] Physical Anthropologist: Casa Medrano MD Cult,Urineon 10-28-2022 Cult,Urine Specimen Description .CLEAN CATCH URINE Culture NO SIGNIFICANT GROWTH Report Status FINAL 10/28/2022 Normal [facility] Comment on above: Performed By: #### C DP, LIP, CP #### [address] [place] [address] Physical Anthropologist: Mauricio rIby MD CBC with Auto Differentialon 10-27-2022 Basophils (Bld) [#/Vol] 0.03 10*3/uL [facility] Basophils/100 WBC (Bld) 0 % 0 - 2 % [facility] Eosinophils (Bld) [#/Vol] 0.07 10*3/uL [facility] Eosinophils/100 WBC (Bld) 1 % 1 - 4 % [facility] Erythrocyte distribution width (RBC) [Ratio] 12.6 % 11.8 - 14.4 % [facility] Hematocrit (Bld) [Volume fraction] 43.7 % 36.3 - 47.1 % [facility] Hemoglobin (Bld) [Mass/Vol] 14.3 g/dL 11.9 - 15.1 g/dL [facility] Immature granulocytes (Bld) [#/Vol] 0.04 10*3/uL [facility] Immature granulocytes/100 WBC (Bld) 0 % 0 [facility] Interpretation and review of laboratory results Abnormal [facility] Lymphocytes/100 WBC (Bld) 27 % 24 - 43 % [facility] Lymphocytes/100 WBC (Bld) 2.50 % [facility] MCH (RBC) [Entitic mass] 31.2 pg 25.2 - 33.5 pg [facility] MCHC (RBC) [Mass/Vol] 32.7 g/dL 28.4 - 34.8 g/dL [facility] MCV (RBC) [Entitic vol] 95.4 fL 82.6 - 102.9 fL [facility] Monocytes/100 WBC (Bld) 5 % 3 - 12 % [facility] Monocytes/100 WBC (Bld) 0.44 % [facility] Neutrophils/100 WBC (Bld) 67 % High 36 - 65 % [facility] Nucleated RBC/100 WBC (Bld) [Ratio] 0.0 % 0.0 per 100 WBC [facility] Platelet mean volume (Bld) [Entitic vol] 8.9 fL 8.1 - 13.5 fL [facility] Platelets (Bld) [#/Vol] 264 10*3/uL [facility] RBC (Bld) [#/Vol] 4.58 10*6/uL 3.95 - 5.1 1 m/uL [facility] Segmented neutrophils/100 WBC (Bld) 6.32 % [facility] WBC other (Bld) [#/Vol] 9.4 [facility] CBC with Diffon 10-27-2022 Abs. Basophil 0.03 k/uL Normal 0.00-0.20 [facility] Comment on above: Performed By: #### C JANIE RAMIREZ, CP #### [facility] [address] [place], [place] [address] Physical Anthropologist: Mauricio Irby MD Abs.Imm.Granulocy te 0.04 k/uL Normal 0.00-0.30 [facility] Comment on above: Performed By: #### C JANIE RAMIREZ, CP #### [facility] [address] [place], [place] [address] Physical Anthropologist: Mauricio Irby MD Abs.Neutrophil (Seg) 6.32 k/uL Normal 1.50-8.10 [facility] Comment on above: Performed By: #### C JANIE RAMIREZ, CP #### [address] [place], [place] [address] Physical Anthropologist: Mauricio Irby MD Basophils/100 WBC (Bld) 0 % Normal 0-2 [facility] Comment on above: Performed By: #### C JANIE RAMIREZ, CP #### [address] [place], [place] [address] Physical Anthropologist: Mauricio Irby MD Eosinophils (Bld) [#/Vol] 0.07 10*3/uL Normal 0.00-0.44 [facility] Comment on above: Performed By: #### C JANIE RAMIREZ, CP #### [address] [place], [place] [address] Physical Anthropologist: Mauricio Irby MD Eosinophils/100 WBC (Bld) 1 % Normal 1-4 [facility] Comment on above: Performed By: #### C JANIE RAMIREZ, CP #### [address] [place], [facility] Physical Anthropologist: Mauricio Irby MD Erythrocyte distribution width (RBC) [Ratio] 12.6 % Normal 11.8-14.4 [facility] Comment on above: Performed By: #### C DP, LIP, CP #### [facility] [address] [place], [place] [address] Physical Anthropologist: Mauricio Irby MD Hematocrit (Bld) [Volume fraction] 43.7 % Normal 36.3-47.1 [facility] Comment on above: Performed By: #### C DP, LIP, CP #### [facility] [address] [place], [place] [address] Physical Anthropologist: Mauricio Irby MD Hemoglobin (Bld) [Mass/Vol] 14.3 g/dL Normal 11.9-15.1 [facility] Comment on above: Performed By: #### C DP, LIP, CP #### [address] [place] [id number] Physical Anthropologist: Mauricio Irby MD Immature granulocytes/100 WBC (Bld) 0 % Normal 0 [facility] Comment on above: Performed By: #### C DP LIP, CP #### [address] [place], [facility] Physical Anthropologist: Mauricio Irby MD Lymphocytes (Bld) [#/Vol] 2.50 10*3/uL Normal 1.10-3.70 [facility] Comment on above: Performed By: #### C DP LIP, CP #### [facility] [address] [place] [address] Dr. [place], [facility] Physical Anthropologist: Mauricio Irby MD Lymphocytes/100 WBC (Bld) 27 % Normal 24-43 [facility] Comment on above: Performed By: #### C DP LIP, CP #### [facility] [address] [place] [address] Physical Anthropologist: Mauricio Irby MD MCH (RBC) [Entitic mass] 31.2 pg Normal 25.2-33.5 [facility] Comment on above: Performed By: #### C JAMES LIP, CP #### [facility] [address] [place], [place] [phone] Physical Anthropologist: Mauricio Irby MD MCHC (RBC) [Mass/Vol] 32.7 g/dL Normal 28.4-34.8 [facility] Comment on above: Performed By: #### C DP, LIP, CP #### [address] [place], [place] [address] Physical Anthropologist: Mauricio Irby MD MCV (RBC) [Entitic vol] 95.4 fL Normal 82.6-102.9 [facility] Comment on above: Performed By: #### C DP, LIP, CP #### [address] [place] [id number] Physical Anthropologist: Mauricio Irby MD Monocytes (Bld) [#/Vol] 0.44 10*3/uL Normal 0.10-1.20 [facility] Comment on above: Performed By: #### C DP, LIP, CP #### [address] [place], [facility] Physical Anthropologist: Mauricio Irby MD Monocytes/100 WBC (Bld) 5 % Normal 3-12 [facility] Comment on above: Performed By: #### C DP, LIP, CP #### [address] [place], [facility] Physical Anthropologist: Mauricio Irby MD Neutrophil (Seg) 67 % High 36-65 [facility] Comment on above: Performed By: #### C DP, LIP, CP #### [address] [place] [id number] Physical Anthropologist: Mauricio Irby MD NRBC Automated 0.0 per 100 WBC Normal 0.0 [facility] Comment on above: Performed By: #### C DP, LIP, CP #### [address] [place] [id number] Physical Anthropologist: Mauricio Irby MD Platelet mean volume (Bld) [Entitic vol] 8.9 fL Normal 8.1-13.5 [facility] Comment on above: Performed By: #### C DP, LIP, CP #### [facility] [address] [place] [address] Dr. [place], [facility] Physical Anthropologist: Mauricio Irby MD Platelets (Bld) [#/Vol] 264 10*3/uL Normal 138-453 [facility] Comment on above: Performed By: #### C DP, LIP, CP #### [address] [place], [facility] Physical Anthropologist: Mauricio Irby MD RBC (Bld) [#/Vol] 4.58 10*6/uL Normal 3.95-5.11 [facility] Comment on above: Performed By: #### C DP, LIP, CP #### [address] [place], [facility] Physical Anthropologist: Mauricio Irby MD WBC (Bld) [#/Vol] 9.4 10*3/uL Normal 3.5-11.3 [facility] Comment on above: Performed By: #### C DP, LIP, CP #### [address] [place], [facility] Physical Anthropologist: Mauricio Irby MD CT ABDOMEN PELVIS W [...] Ronni Vaughn MD 10/27/22 Final result Normal [facility] CT ABDOMEN PELVIS W IV [...] imaging follow-up. IMPRESSION: No acute abnormality identified. [facility] Radiology Study observation (narrative) [facility] CT ABDOMEN PELVIS W IV CONTR AST Additional Contrast? NoneOrdered By: Ronni Vaughn on 10-27-2022 [facility] Work Phone: Comp Metabolic Profon 2022 Albumin [Mass/Vol] 4.0 g/dL Normal 3.5-5.2 [facility] Comment on above: Performed By: #### C JANIE RAMIREZ, CP #### [facility] [address] [place] [address] [place] [address] Physical Anthropologist: Mauricio Irby MD Albumin/Glob Ratio 1.1 Normal 1.0-2.5 [facility] Comment on above: Performed By: #### C JAMES LIP, CP #### [facility] [address] [place] [address] Physical Anthropologist: Mauricio Irby MD Alkaline Phos 82 U/L Normal 35-104 [facility] Comment on above: Performed By: #### C JAMES LIP, CP #### [facility] [address] [place] [address] Physical Anthropologist: Mauricio Irby MD ALT [Catalytic activity/Vol] 11 U/L Normal 5-33 [facility] Comment on above: Performed By: #### C DP, LIP, CP #### [facility] [address] [place], [place] [id number] Physical Anthropologist: Mauricio Irby MD Anion gap [Moles/Vol] 8 mmol/L Low 9-17 [facility] Comment on above: Performed By: #### C DP, LIP, CP #### [facility] [address] [place], [place] [id number] Physical Anthropologist: Mauricio Irby MD AST [Catalytic activity/Vol] 12 U/L Normal <32 [facility] Comment on above: Performed By: #### C JAMES LIP, CP #### [address] [place], [place] [id number] Physical Anthropologist: Mauricio Irby MD Bilirubin [Mass/Vol] 0.2 mg/dL Low 0.3-1.2 [facility] Comment on above: Performed By: #### C JAMES LIP, CP #### [address] [place], [place] [phone] Physical Anthropologist: Mauricio Irby MD BUN/CRE Ratio 11 Normal 9-20 [facility] Comment on above: Performed By: #### C DP LIP, CP #### [facility] [address] [place] [address] Dr. [place], [place] [phone] Physical Anthropologist: Mauricio Irby MD Calcium [Mass/Vol] 9.2 mg/dL Normal 8.6-10.4 [facility] Comment on above: Performed By: #### C JAMES LIP, CP #### [address] [place] [address] Physical Anthropologist: Mauricio Irby MD Chloride [Moles/Vol] 102 mmol/L Normal 98-107 [facility] Comment on above: Performed By: #### C DP, LIP, CP #### [facility] [address] [place] [address] [place] [address] Physical Anthropologist: Mauricio Irby MD CO2 [Moles/Vol] 27 mmol/L Normal 20-31 [facility] Comment on above: Performed By: #### C JANIE RAMIREZ, CP #### [facility] [address] [place] [address] Physical Anthropologist: Mauricio Irby MD Creatinine [Mass/Vol] 0.7 mg/dL Normal 0.5-0.9 [facility] Comment on above: Performed By: #### C JANIE RAMIREZ, CP #### [facility] [address] [place] [address] Physical Anthropologist: Mauricio Irby MD GFR/1.73 sq M.predicted among non-blacks MDRD (S/P/Bld) [Vol rate/Area] mL/min/{1.73_m2} Normal >60 [facility] Comment on above: Result Comment: [...] By: #### C JANIE RAMIREZ, CP #### [facility] [address] [place] [address] Physical Anthropologist: Mauricio Irby MD Glucose [Mass/Vol] 134 mg/dL High 70-99 [facility] Comment on above: Performed By: #### C JANIE RAMIREZ, CP #### [facility] [address] [place] [address] Physical Anthropologist: Mauricio Irby MD Potassium [Moles/Vol] 4.1 mmol/L Normal 3.7-5.3 [facility] Comment on above: Performed By: #### C JANIE RAMIREZ, CP #### [facility] [address] [place] [address] Physical Anthropologist: Mauricio Irby MD Protein [Mass/Vol] 7.7 g/dL Normal 6.4-8.3 [facility] Comment on above: Performed By: #### C DP, LIP, CP #### [facility] [address] [place] [address] Physical Anthropologist: Mauricio Irby MD Sodium [Moles/Vol] 137 mmol/L Normal 135-144 [facility] Comment on above: Performed By: #### C DP, LIP, CP #### [facility] [address] [place] [address] Physical Anthropologist: Mauricio Irby MD Urea nitrogen [Mass/Vol] 8 mg/dL Normal 6-20 [facility] Comment on above: Performed By: #### C DP, LIP, CP #### [facility] [address] [place] [address] Physical Anthropologist: Mauricio Irby MD Comprehensive Metabolic [facility] 10-27-2022 Albumin [Mass/Vol] 4.0 g/dL 3.5 - 5.2 g/dL [facility] Albumin/Globulin [Mass ratio] 1.1 {ratio} 1.0 - 2.5 [facility] ALP [Catalytic activity/Vol] 82 U/L 35 - 104 U/L [facility] ALT [Catalytic activity/Vol] 11 U/L 5 - 33 U/L [facility] Anion gap [Moles/Vol] 8 mmol/L Low 9 - 17 mmol/L [facility] AST [Catalytic activity/Vol] 12 U/L NINF - 32 U/L [facility] Bilirubin [Mass/Vol] 0.2 mg/dL Low 0.3 - 1.2 mg/dL [facility] Calcium [Mass/Vol] 9.2 mg/dL 8.6 - 10.4 mg/dL [facility] Chloride [Moles/Vol] 102 mmol/L 98 - 107 mmol/L [facility] CO2 [Moles/Vol] 27 mmol/L 20 - 31 mmol/L [facility] Creatinine [Mass/Vol] 0.7 mg/dL 0.5 - 0.9 mg/dL [facility] GFR/1.73 sq M.predicted MDRD (S/P/Bld) [Vol rate/Area] - PINF [facility] Comment on above: These results [...] 134 mg/dL High 70 - 99 mg/dL [facility] Potassium [Moles/Vol] 4.1 mmol/L 3.7 - 5.3 mmol/L [facility] Protein [Mass/Vol] 7.7 g/dL 6.4 - 8.3 g/dL [facility] Sodium [Moles/Vol] 137 mmol/L 135 - 144 mmol/L [facility] Urea nitrogen [Mass/Vol] 8 mg/dL 6 - 20 mg/dL [facility] Urea nitrogen/Creatini ne [Mass ratio] 11 mg/mg 9 - 20 [facility] Lactic Acidon 10-27-2022 Lactate (BldV) [Moles/Vol] 1.6 mmol/L 0.5 - 2.2 mmol/L [facility] Lactate [Moles/Vol] 1.6 mmol/L Normal 0.5-2.2 [facility] Comment on above: Performed By: #### C JANIE RAMIREZ, CP #### [facility] [address] [place] [address] Physical Anthropologist: Mauricio Irby MD Lipaseon 10-27-2022 Lipase [Catalytic activity/Vol] 67 U/L High 13 - 60 U/L [facility] Lipase [Catalytic activity/Vol] 67 U/L High 13-60 [facility] Comment on above: Performed By: #### C DP, LIP, CP #### [facility] [address] [place] [id number] Physical Anthropologist: Mauricio Irby MD No Panel Informationon 10-27 Interpretation and review of laboratory results Abnormal [facility] Urinalysis w/ Microon 2022 Bacteria 1+ Abnormal NONE [facility] Comment on above: Performed By: #### U AMIC #### [facility] [address] [place], [place] [id number] Physical Anthropologist: Mauricio rIby MD Bilirubin, SemiQt,Ur Negative Normal NEG [facility] Comment on above: Performed By: #### U AMIC #### [facility] [address] [place], [facility] Physical Anthropologist: Mauricio Irby MD Blood, Urine Negative Normal NEG [facility] Comment on above: Performed By: #### U AMIC #### [facility] [address] [place], [place] [address] Physical Anthropologist: Mauricio Irby MD Clarity (U) Clear Normal CLEAR [facility] Comment on above: Performed By: #### U AMIC #### [facility] [address] [place], [place] [address] Physical Anthropologist: Mauricio Irby MD Color (U) Yellow Normal YEL [facility] Comment on above: Performed By: #### U AMIC #### [facility] [address] [place], [facility] Physical Anthropologist: Mauricio Irby MD Epithelial cells LM Ql (Urine sed) 10 TO 20 Normal 0-25 [facility] Comment on above: Performed By: #### U AMIC #### [facility] [address] [place] [address] Physical Anthropologist: Mauricio Irby MD Glucose Ql (U) Negative Normal NEG [facility] Comment on above: Performed By: #### U AMIC #### [facility] [address] [place] [address] Dr. [place], [place] [phone] Physical Anthropologist: Mauricio Irby MD Ketones Ql (U) Negative Normal NEG [facility] Comment on above: Performed By: #### U AMIC #### [facility] [address] [place] [address] Dr. [place], [place] [phone] Physical Anthropologist: Mauricio Irby MD Leukocyte esterase Test strip Ql (U) Negative Normal NEG [facility] Comment on above: Performed By: #### U AMIC #### [address] [place], [place] [phone] Physical Anthropologist: Mauricio Irby MD Nitrite,Ur Negative Normal NEG [facility] Comment on above: Performed By: #### U AMIC #### [facility] [address] [place] [address] Dr. [place], [place] [phone] Physical Anthropologist: Mauricio Irby MD PH,Ur 6.0 Normal 5.0-9.0 [facility] Comment on above: Performed By: #### U AMIC #### [address] [place], [place] [phone] Physical Anthropologist: Mauricio Irby MD Protein Ql (U) Negative Normal NEG [facility] Comment on above: Performed By: #### U AMIC #### [facility] [address] [place] [address] [place] [address] Physical Anthropologist: Mauricio Irby MD Spec. [place],Ur 1.010 Normal 1.010-1.020 [facility] Comment on above: Performed By: #### U AMIC #### [facility] [address] [place] [address] Dr. [place], [place] [id number] Physical Anthropologist: Mauricio Irby MD Urine RBC's 0 TO 2 Normal 0-2 [facility] Comment on above: Performed By: #### U AMIC #### [facility] [address] [place] [address] Physical Anthropologist: Mauricio Irby MD Urine WBC's 0 TO 2 Normal 0-5 [facility] Comment on above: Performed By: #### U AMIC #### [facility] [address] [place] [address] Physical Anthropologist: Mauricio Irby MD Urobilinogen,Ur Normal Normal 0.0-1.0 [facility] Comment on above: Performed By: #### U AMIC #### [facility] [address] [place] [address] Physical Anthropologist: Mauricio Irby MD Urinalysis with Microscopico n 10-27-2022 Bacteria LM Ql (Urine sed) 1+ Abnormal None [facility] Bilirubin Ql (U) Negative NEGATIVE [facility] Clarity (U) Clear Clear [facility] Color (U) Yellow Yellow [facility] Epithelial cells LM.HPF (Urine sed) [#/Area] 10 TO 20 [facility] Glucose Test strip (U) [Mass/Vol] Negative NEGATIVE mg/dL [facility] Hemoglobin Auto test strip Ql (U) Negative NEGATIVE [facility] Interpretation and review of laboratory results Abnormal [facility] Ketones (U) [Mass/Vol] Negative NEGATIVE mg/dL [facility] Leukocyte esterase Test strip Ql (U) Negative NEGATIVE [facility] Nitrite Ql (U) Negative NEGATIVE [facility] pH (U) 6.0 [pH] 5.0 - 9.0 [facility] Protein (U) [Mass/Vol] Negative NEGATIVE mg/dL [facility] RBC LM.HPF (Urine sed) [#/Area] [address] TO [address] [facility] Specific gravity (U) [Rel density] 1.010 1.010 - 1.020 [facility] Urobilinogen Qn (U) Normal 0.0 - 1.0 EU/dL [facility] WBC LM.HPF (Urine sed) [#/Area] 0 TO 2 [facility] XR ABD FLAT UP_PA Joyce 03-25 [...] MAURICIO LYONS Date: 2022-03-25 08:01 Normal [facility] AMYLASEon 03-24-2022 Amylase [Catalytic activity/Vol] 36 U/L Normal 25-115 [facility] Comment on above: Performed By: #### C MP, DARION, LIPA #### [facility] [address] [place] [address] Dr. Melecio Chadwick CBC AUTO DIFFon 03-24-2022 BASO # 0.0 103/ul Normal 0.0-0.1 [facility] Comment on above: Performed By: #### C BC #### [facility] [address] [place] [address] Dr. Melecio Chadwick Basophils/100 WBC (Bld) 0.2 % Normal 0.2-2.0 [facility] Comment on above: Performed By: #### C BC #### [facility] [address] [place] [address] Dr. Melecio Chadwick EO # 0.1 103/ul Normal 0.0-0.7 [facility] Comment on above: Performed By: #### C BC #### [facility] [address] [place] [address] Dr. Melecio Chadwick Eosinophils/100 WBC (Bld) 1.1 % Normal 0.9-7.0 [facility] Comment on above: Performed By: #### C BC #### [facility] [address] [place] [address] Dr. Melecio Chadwick Erythrocyte distribution width (RBC) [Ratio] 12.3 % Normal 11.0-15.0 [facility] Comment on above: Performed By: #### C BC #### [facility] [address] [place] [address] Dr. Melecio Chadwick Hematocrit (Bld) [Volume fraction] 42.5 % Normal 36.0-48.0 [facility] Comment on above: Performed By: #### C BC #### [facility] [address] [place] [address] Dr. Melecio Chadwick Hemoglobin (Bld) [Mass/Vol] 14.3 g/dL Normal 12.0-16.0 [facility] Comment on above: Performed By: #### C BC #### [facility] [address] [place] [address] Dr. Melecio Chadwick IG # 0.03 10e3/ul Normal 0.00-0.03 [facility] Comment on above: Performed By: #### C BC #### [facility] [facility] [address] [place] [address] Dr. Melecio Chadwick IG % 0.3 % Normal 0.0-0.5 [facility] Comment on above: Performed By: #### C BC #### [facility] [address] [place] [address] Dr. Melecio Chadwick LYMPH # 3.1 103/ul Normal 1.2-3.8 [facility] Comment on above: Performed By: #### C BC #### [facility] [address] [place] [address] Dr. Melecio Chadwick Lymphocytes/100 WBC (Bld) 29.8 % Normal 20.5-60.0 [facility] Comment on above: Performed By: #### C BC #### [facility] [address] [place] [address] Dr. Melecio Chadwick MANUAL DIFF REQ NO Normal [facility] Comment on above: Performed By: #### C BC #### [facility] [address] [place] [address] Dr. Melecio Chadwick MCH (RBC) [Entitic mass] 31.0 pg Normal 26.7-34.0 [facility] Comment on above: Performed By: #### C BC #### [facility] [address] [place] [address] Dr. Melecio Chadwick MCHC (RBC) [Mass/Vol] 33.6 g/dL Normal 29.9-35.2 [facility] Comment on above: Performed By: #### C BC #### [facility] [address] [place] [address] Dr. Melecio Chadwick MCV (RBC) [Entitic vol] 92.2 fL Normal 81.0-99.0 [facility] Comment on above: Performed By: #### C BC #### [facility] [address] [place] [address] Dr. Melecio Chadwick MONO # 0.6 103/ul Normal 0.3-0.8 [facility] Comment on above: Performed By: #### C BC #### [facility] [address] [place] [address] Dr. Melecio Chadwick Monocytes/100 WBC (Bld) 5.8 % Normal 1.7-12.0 [facility] Comment on above: Performed By: #### C BC #### [facility] [address] [place] [address] Dr. Melecio Chadwick NEUT # 6.5 103/ul Normal 1.4-6.5 [facility] Comment on above: Performed By: #### C BC #### [facility] [address] [place] [address] Dr. Melecio Chadwick Neutrophils/100 WBC (Bld) 62.8 % Normal 43.0-75.0 [facility] Comment on above: Performed By: #### C BC #### [facility] [address] [place] [address] Dr. Melecio Chadwick Platelet mean volume (Bld) [Entitic vol] 9.0 fL Critically low 9.5-13.5 [facility] Comment on above: Performed By: #### C BC #### [facility] [address] [place] [address] Dr. Melecio Chadwick PLT 268 103/ul Normal 150-450 [facility] Comment on above: Performed By: #### C BC #### [facility] [address] [place] [address] Dr. Melecio Chadwick RBC 4.61 106/ul Normal 4.20-5.40 [facility] Comment on above: Performed By: #### C BC #### [facility] [address] [place] [address] Dr. Melecio Chadwick WBC 10.4 103/ul Normal 4.0-11.0 [facility] Comment on above: Performed By: #### C BC #### [facility] [address] [place] [address] Dr. Melecio Chadwick LIPASEon 03-24-2022 Lipase [Catalytic activity/Vol] 114.0 U/L Normal 73.0-393.0 [facility] Comment on above: Performed By: #### C DOREEN DARION, LIPA #### [facility] [address] [place] [address] Dr. Melecio Chadwick PROF 14(COMP METB)on 023 Albumin [Mass/Vol] 3.5 g/dL Normal 3.4-5.0 [facility] Comment on above: Performed By: #### C DOREEN DARION, LIPA #### [facility] [address] [place] [address] Dr. Melecio Chadwick Albumin/Globulin [Mass ratio] 0.8 {ratio} Normal [facility] Comment on above: Performed By: #### C MP DARION, LIPA #### [facility] [address] [place] [address] Dr. Melecio Chadwick ALP [Catalytic activity/Vol] 85 U/L Normal 46-116 [facility] Comment on above: Performed By: #### C MP DARION, LIPA #### [facility] [address] [place] [address] Dr. Melecio Chadwick ALT [Catalytic activity/Vol] 21 U/L Normal 14-59 [facility] Comment on above: Performed By: #### C MP DARION, LIPA #### [facility] [address] [place] [address] Dr. Melecio Chadwick Anion gap [Moles/Vol] 11.6 mmol/L Normal [facility] Comment on above: Performed By: #### C DARION LOGAN LIPA #### [facility] [address] [address] [address] Melecio Chadwick AST [Catalytic activity/Vol] 15 U/L Normal 15-37 [facility] Comment on above: Performed By: #### C DARION LOGAN LIPA #### [facility] [address] [address] [address] Melecio Chadwick Bilirubin [Mass/Vol] 0.3 mg/dL Normal 0.2-1.0 [facility] Comment on above: Performed By: #### C DARION LOGAN LIPA #### [facility] [address] [place] [address] Dr. Melecio Chadwick Calcium [Mass/Vol] 8.8 mg/dL Normal 8.5-10.1 [facility] Comment on above: Performed By: #### C DARION LOGAN LIPA #### [facility] [address] [address] [address] Melecio Chadwick Chloride [Moles/Vol] 102 mmol/L Normal 98-107 [facility] Comment on above: Performed By: #### C DARION LOGAN LIPA #### [facility] [address] [place] [address] Dr. Melecio Chadwick CO2 [Moles/Vol] 28.5 mmol/L Normal 21.0-32.0 [facility] Comment on above: Performed By: #### C DARION LOGAN LIPA #### [facility] [address] [address] [address] Melecio Chadwick Creatinine [Mass/Vol] 0.76 mg/dL Normal 0.55-1.02 [facility] Comment on above: Performed By: #### C DARION LOGAN LIPA #### [facility] [address] [address] [address] Melecio Chadwick EGFR-AF VIETNAMESE >60 Normal >=60 [facility] Comment on above: Performed By: #### C DARION LOGAN LIPA #### [facility] [address] [address] [address] Melecio Chadwick EGFR-NON AF VIETNAMESE >60 Normal >=60 [facility] Comment on above: Performed By: #### C MP, DARION, LIPA #### [facility] [address] [address] [address] Melecio Chadwick Globulin (S) [Mass/Vol] 4.2 g/dL Normal [facility] Comment on above: Performed By: #### C MP, DARION, LIPA #### [facility] [address] [address] [address] Melecio Chadwick Glucose [Mass/Vol] 97 mg/dL Normal 74-106 [facility] Comment on above: Performed By: #### C MP, DARION, LIPA #### [facility] [address] [address] [address] Melecio Chadwick Potassium [Moles/Vol] 4.1 mmol/L Normal 3.5-5.1 [facility] Comment on above: Performed By: #### C DOREEN DARION, LIPA #### [facility] [address] [address] [address] Melecio Chadwick Protein [Mass/Vol] 7.7 g/dL Normal 6.4-8.2 [facility] Comment on above: Performed By: #### C MP, DARION, LIPA #### [facility] [address] [address] [address] Melecio Chadwick Sodium [Moles/Vol] 138 mmol/L Normal 136-145 [facility] Comment on above: Performed By: #### C MP, DARION, LIPA #### [facility] [address] [address] [address] Melecio Chadwick Urea nitrogen [Mass/Vol] 9.0 mg/dL Normal 7.0-18.0 [facility] Comment on above: Performed By: #### C MP, DARION, LIPA #### [facility] [address] [address] [address] Melecio Chadwick Urea nitrogen/Creatini ne [Mass ratio] 11.8 mg/mg Normal [facility] Comment on above: Performed By: #### C MP, DARION, LIPA #### [facility] [address] [place] [address] Dr. Melecio Chadwick AMYLASEon 03-19-2022 Amylase [Catalytic activity/Vol] 44 U/L Normal 25-115 [facility] Comment on above: Performed By: #### A MY, CMP, LIPA #### [facility] [address] [place] [address] Dr. Melecio Chadwick CBC AUTO DIFFon 03-19-2022 BASO # 0.0 103/ul Normal 0.0-0.1 [facility] Comment on above: Performed By: #### C BC #### [facility] [address] [place] [address] Dr. Melecio Chadwick Basophils/100 WBC (Bld) 0.2 % Normal 0.2-2.0 [facility] Comment on above: Performed By: #### C BC #### [facility] [address] [place] [address] Dr. Melecio Chadwick EO # 0.1 103/ul Normal 0.0-0.7 [facility] Comment on above: Performed By: #### C BC #### [facility] [address] [place] [address] Dr. Melecio Chadwick Eosinophils/100 WBC (Bld) 1.5 % Normal 0.9-7.0 [facility] Comment on above: Performed By: #### C BC #### [facility] [address] [place] [address] Dr. Melecio Chadwick Erythrocyte distribution width (RBC) [Ratio] 12.4 % Normal 11.0-15.0 [facility] Comment on above: Performed By: #### C BC #### [facility] [address] [place] [address] Dr. Melecio Chadwick Hematocrit (Bld) [Volume fraction] 41.8 % Normal 36.0-48.0 [facility] Comment on above: Performed By: #### C BC #### [facility] [address] [place] [address] Dr. Melecio Chadwick Hemoglobin (Bld) [Mass/Vol] 13.2 g/dL Normal 12.0-16.0 [facility] Comment on above: Performed By: #### C BC #### [facility] [address] [place] [address] Dr. Melecio Chadwick IG # 0.02 10e3/ul Normal 0.00-0.03 [facility] Comment on above: Performed By: #### C BC #### [facility] [address] [place] [address] Dr. Melecio Chadwick IG % 0.2 % Normal 0.0-0.5 [facility] Comment on above: Performed By: #### C BC #### [facility] [address] [place] [address] Dr. Melecio Chadwick LYMPH # 3.3 103/ul Normal 1.2-3.8 [facility] Comment on above: Performed By: #### C BC #### [facility] [address] [place] [address] Dr. Melecio Chadwick Lymphocytes/100 WBC (Bld) 38.0 % Normal 20.5-60.0 [facility] Comment on above: Performed By: #### C BC #### [facility] [address] [place] [address] Dr. Melecio Chadwick MANUAL DIFF REQ NO Normal [facility] Comment on above: Performed By: #### C BC #### [facility] [address] [place] [address] Dr. Melecio Chadwick MCH (RBC) [Entitic mass] 30.9 pg Normal 26.7-34.0 [facility] Comment on above: Performed By: #### C BC #### [facility] [address] [place] [address] Dr. Melecio Chadwick MCHC (RBC) [Mass/Vol] 31.6 g/dL Normal 29.9-35.2 [facility] Comment on above: Performed By: #### C BC #### [facility] [address] [place] [address] Dr. Melecio Chadwick MCV (RBC) [Entitic vol] 97.9 fL Normal 81.0-99.0 [facility] Comment on above: Performed By: #### C BC #### [facility] [address] [place] [address] Dr. Melecio Chadwick MONO # 0.4 103/ul Normal 0.3-0.8 [facility] Comment on above: Performed By: #### C BC #### [facility] [address] [place] [address] Dr. Melecio Chadwick Monocytes/100 WBC (Bld) 4.6 % Normal 1.7-12.0 [facility] Comment on above: Performed By: #### C BC #### [facility] [address] [place] [address] Dr. Melecio Chadwick NEUT # 4.8 103/ul Normal 1.4-6.5 [facility] Comment on above: Performed By: #### C BC #### [facility] [address] [place] [address] Dr. Melecio Chadwick Neutrophils/100 WBC (Bld) 55.5 % Normal 43.0-75.0 [facility] Comment on above: Performed By: #### C BC #### [facility] [address] [place] [address] Dr. Melecio Chadwick Platelet mean volume (Bld) [Entitic vol] 9.7 fL Normal 9.5-13.5 [facility] Comment on above: Performed By: #### C BC #### [facility] [address] [place] [address] Dr. Melecio Chadwick PLT 258 103/ul Normal 150-450 [facility] Comment on above: Performed By: #### C BC #### [facility] [address] [place] [address] Dr. Melecio Chadwick RBC 4.27 106/ul Normal 4.20-5.40 [facility] Comment on above: Performed By: #### C BC #### [facility] [address] [place] [address] Dr. Melecio Chadwick WBC 8.7 103/ul Normal 4.0-11.0 [facility] Comment on above: Performed By: #### C BC #### [facility] [address] [place] [address] Dr. Melecio Chadwick LIPASEon 03-19-2022 Lipase [Catalytic activity/Vol] 119.0 U/L Normal 73.0-393.0 [facility] Comment on above: Performed By: #### A MY, CMP, LIPA #### [facility] [address] [address] [address] Melecio Chadwick PROF 14(COMP METB)on 023 Albumin [Mass/Vol] 3.2 g/dL Critically low 3.4-5.0 [facility] Comment on above: Performed By: #### A MY, CMP, LIPA #### [facility] [address] [place] [address] Dr. Melecio Chadwick Albumin/Globulin [Mass ratio] 0.9 {ratio} Normal [facility] Comment on above: Performed By: #### A MY, CMP, LIPA #### [facility] [address] [place] [address] Dr. Melecio Chadwick ALP [Catalytic activity/Vol] 76 U/L Normal 46-116 [facility] Comment on above: Performed By: #### A MY, CMP, LIPA #### [facility] [address] [place] [address] Dr. Melecio Chadwick ALT [Catalytic activity/Vol] 18 U/L Normal 14-59 [facility] Comment on above: Performed By: #### A MY, CMP, LIPA #### [facility] [address] [place] [address] Dr. Melecio Chadwick Anion gap [Moles/Vol] 11.6 mmol/L Normal [facility] Comment on above: Performed By: #### A MY, CMP, LIPA #### [facility] [address] [place] [address] Dr. Melecio Chadwick AST [Catalytic activity/Vol] 14 U/L Critically low 15-37 [facility] Comment on above: Performed By: #### A MY, CMP, LIPA #### [facility] [address] [place] [address] Dr. Melecio Chadwick Bilirubin [Mass/Vol] 0.2 mg/dL Normal 0.2-1.0 [facility] Comment on above: Performed By: #### A MY, CMP, LIPA #### [facility] [address] [place] [address] Dr. Melecio Chadwick Calcium [Mass/Vol] 7.9 mg/dL Critically low 8.5-10.1 [facility] Comment on above: Performed By: #### A MY, CMP, LIPA #### [facility] [address] [place] [address] Dr. Melecio Chadwick Chloride [Moles/Vol] 105 mmol/L Normal 98-107 [facility] Comment on above: Performed By: #### A MY, CMP, LIPA #### [facility] [address] [place] [address] Dr. Melecio Chadwick CO2 [Moles/Vol] 25.8 mmol/L Normal 21.0-32.0 [facility] Comment on above: Performed By: #### A MY, CMP, LIPA #### [facility] [address] [place] [address] Dr. Melecio Chadwick Creatinine [Mass/Vol] 0.67 mg/dL Normal 0.55-1.02 [facility] Comment on above: Performed By: #### A MY, CMP, LIPA #### [facility] [address] [place] [address] Dr. Melecio Chadwick EGFR-AF VIET[place]ESE >60 Normal >=60 [facility] Comment on above: Performed By: #### A MY, CMP, LIPA #### [facility] [address] [place] [address] Dr. Melecio Chadwick EGFR-NON AF VIET[place]ESE >60 Normal >=60 [facility] Comment on above: Performed By: #### A MY, CMP, LIPA #### [facility] [address] [place] [address] Dr. Melecio Chadwick Globulin (S) [Mass/Vol] 3.6 g/dL Normal [facility] Comment on above: Performed By: #### A MY, CMP, LIPA #### [facility] [address] [address] [address] Melecio Chadwick Glucose [Mass/Vol] 95 mg/dL Normal 74-106 [facility] Comment on above: Performed By: #### A MY, CMP, LIPA #### [facility] [address] [address] [address] Melecio Chadwick Potassium [Moles/Vol] 3.4 mmol/L Critically low 3.5-5.1 [facility] Comment on above: Performed By: #### A MY, CMP, LIPA #### [facility] [address] [address] [address] Melecio Chadwick Protein [Mass/Vol] 6.8 g/dL Normal 6.4-8.2 [facility] Comment on above: Performed By: #### A MY, CMP, LIPA #### [facility] [address] [address] [address] Melecio Chadwick Sodium [Moles/Vol] 139 mmol/L Normal 136-145 [facility] Comment on above: Performed By: #### A MY, CMP, LIPA #### [facility] [address] [address] [address] Melecio Chadwick Urea nitrogen [Mass/Vol] 6.0 mg/dL Critically low 7.0-18.0 [facility] Comment on above: Performed By: #### A MY, CMP, LIPA #### [facility] [address] [address] [address] Melecio Chadwick Urea nitrogen/Creatini ne [Mass ratio] 9.0 mg/mg Normal [facility] Comment on above: Performed By: #### A MY, CMP, LIPA #### [facility] [address] [address] [address] Melecio Chadwick Intraoperative Noteon 2017 Intraoperative Note [id number]#1.00OTGTIFF Normal [facility] Intraoperative Noteon 2017 Intraoperative Note [id number]#1.00[facility] History and Physicalon 01-23 History and Physical [id number]#1.00[facility] Provider Orderson 01-23-2017 Protein [id number]#[address] Coding Summaryon 12-08-2016 Coding Summary CODING DATE: 017 [facility] STATUS: Home PAYOR: [employer] Insurance APC DESCRIPTION 5113 Level 3 Musculoskeletal Procedures ADMIT DX: REASON FOR VISIT DX: S83.242A Other tear of medial meniscus, current injury, left knee, initial encounter FINAL DX: PRINCIPAL: M22.42 Chondromalacia patellae, left knee SECONDARY: M94.9 Disorder of cartilage, unspecified PYMT PROC APC STAT DESCRIPTION DOCTOR NAME DATE 59194 5113 J1 Arthroscopy, knee, ARIES HARO 12/05/2016 [...] Tamanna Ambrocio Date Saved: 12/08/2016 03:51 pm [facility] Consent Formson 12-08-2016 Consent Forms [id number]#[address] [place] [address] Discharge Instructionson Discharge Instructions [id number]#[address] [place] [address] Intraoperative Noteon 2016 Intraoperative Note [id number] MAGR PACU Recordon 7 MAGR PACU Record MAGR PACU Record Sorin oreilly Primary Physician: ARIES HARO Finalized Date/Time: 12/08/16 10:49:55 Pt. Name: KAVITAYOLI DhillonTAMYSIGIFREDO Alaniz/Sex: 1980 FEMALE Med Rec #: [id number] Physician: ARIES HARO Financial #: [id number] Pt. Type: D Room/Bed: / Admit/Disch: 12/05/16 [...] Signed By: Sana Jarvis RN 12/08/16 10:49 [facility] 1 [facility] Preoperative Record MAGR Pre-Op Record Summary Primary Physician: ARIES HARO Finalized Date/Time: 12/08/16 10:20:04 Pt. Name: KAVITA TAMY Alaniz/Sex: 1980 FEMALE Med Rec #: [id number] Physician: ARIES HARO Financial #: [id number] Pt. Type: D Room/Bed: / Admit/Disch: 12/05/16 [...] Signed By: Marium Ledbetter RN 12/08/16 10:20 [facility] Medication Managementon 11-11 Medication Management [id number]#1.00OTGTIFF [facility] Telemetry Stripson 7 Telemetry Strips [id number]#1.00OTGTIFF [facility] Anesthesia Noteon 12-05-2016 Anesthesia Note Patient: RUFUS WALLS : 36 years Sex: FEMALE : [birth year]Associated Diagnoses: NoneAuthor: Bunny Briggs MDPostoperative InformationPost Operative Note: Operative Day.Anesthetic utilized: General.Health StatusAllergies:Allergic Reactions (All)Severity Not DocumentedDilaudid- Angio-oedema.Percocet 5/325- Nausea & vomiting.Problem list (past medical history):All ProblemsAnxiety / SNOMED CT 62723644 / ConfirmedPhysical ExaminationVS/MeasurementsV ital Signs (last 24 hrs) Last ChartedHeart Rate Peripheral H102 bpm (DEC 05 11:47)Resp Rate H 28 br/min (DEC 05 11:47)SBP 133 mmHg (DEC 05 11:47)DBP 87 mmHg (DEC 05 11:47)SpO2 99 % (DEC 05:47)Review / ManagementCondition: Stable.AssessmentAnesthetic outcomeNo anesthetic complications noted.PlanTransfer/ Discharge: Patient can be discharged from PACU when criteria met.Condition good.[Electronically Signed on: 12/05/2016 12:07 EDT] Bunny Briggs MD[Verified on: 12/05/2016 12:07 EDT] Bunny Briggs MD [facility] Anesthesia Note Patient: RUFUS WALLS : 36 [...] (past medical history):All ProblemsAnxiety / SNOMED CT 18611757 / ConfirmedHistoriesFamily History:No family history items have been selected or recorded.Procedure history:Hysterectomy (633935973) in 2014 at 33 Years.Comments:11/28/2016 10:07 - Shayy Sylvester RNpartialAppendectomy (609649712) in 2013 at 32 Years.Tubal ligation (760875401) in 2004 at 24 Years.Cholecystectomy (57400839) in 1999 at 19 Years.Ear care (696519860).Comments:2016 10:06 - Shayy Sylvester RNtubes h4Cjyevo History Alcohol Assessment Use: Never. Tobacco Assessment former smoker quit 2 yrs ago Tobacco Use:. Substance Abuse Assessment Substance use: Never..Social & Psychosocial BvignbLcbpvhv46/20/2017 Alcohol Use: NeverSubstance Abuse11/28/2016 Substance use: JobirWvzzyqw17/20/2017 Smoking tobacco use: former smoker quit 2 [...] on: 12/05/2016 10:25 EDT] Bunny Briggs MD [facility] MAGR Intraoperative Recordon 12-05-2016 MAGR Intraoperative Record MAGR Intra-Op Record Summary Primary Physician: ARIES HARO Finalized Date/Time: 12/05/16 11:52:54 Pt. Name: TAMY WALLS/Sex: 1980 FEMALE Med Rec #: [id number] Physician: ARIES HARO Financial #: [id number] Pt. Type: D Room/Bed: / Admit/Disch: 12/05/16 [...] Role Performed Surgeon - Primary Anesthesiologist of Ski Patroller Record Time In 12/05/16 10:37:00 12/05/16 10:37:00 12/05/16 10:37:00 Time Out 12/05/16 11:30:00 12/05/16 11:48:00 12/05/16 11:48:00 Procedure Arthroscopy Knee(Left) Arthroscopy Knee(Left) Arthroscopy Knee(Left) Last Modified By: Leslie Tolentino RN, Stephanie RN Sauer, Stephanie RN 12/05/16 11:52:02 12/05/16 11:52:02 12/05/16 11:52:02 Entry 4 Entry 5 Entry 6 Case Attendee Ro Morrison RN, Leigh-Ann CST Nikolaus, Linda M Role Performed Ski Patroller Certified Nurse Practitioner [employer] Personnel Time In 12/05/16 10:37:00 12/05/16 [...] Signed By: Leslie Tolentino RN 12/05/16 11:52 [facility] 12-05-2016 MAGR Postoperative Record MAGR Phase II Record Summary Primary Physician: ARIES HARO Finalized Date/Time: 12/05/16 14:50:11 Pt. Name: TAMY WALLS /Sex: 1980 FEMALE Med Rec #: [id number] Physician: ARIES HARO Financial #: [id number] Pt. Type: D Room/Bed: / Admit/Disch: 12/05/16 [...] Signed By: Sana Jarvis RN 12/05/16 14:50 [facility] Progress Note - Nursemyles 10-2 Progress Note - Nurse Spoke with pt and informed her to be here at 9am and NPO after MN, she verbalizes understanding.[Electronical ly Signed on: 12/04/2016 09:42 EDT] Shayy Sylvester RN[Verified on: 12/04/2016 09:42 EDT] Shayy Sylvesetr RN [facility] Vital Signs Date Time Vital Sign Value Performing Clinician Eliseo perales 11-27-2023 08:42-0400 Body height 172.2 cm Jaylen Brown MD Work Phone: [facility] [employer] [facility] 11-27-2023 08:42-0400 Body mass index (BMI) [Ratio] 39.19 kg/m2 Jaylen Brown MD Work Phone: [facility] [employer] [facility] 11-27-2023 08:42-0400 Body weight 116.21 kg Jaylen Brown MD Work Phone: [facility] [employer] [facility] 11-27-2023 08:42-0400 Diastolic blood pressure 91 mm[Hg] Jaylen Brown MD Work Phone: [facility] [employer] [facility] 11-27-2023 08:42-0400 Heart rate 84 /min Jaylen Brown MD Work Phone: [facility] [employer] [facility] 11-27-2023 08:42-0400 Systolic blood pressure 142 mm[Hg] Jaylen Brown MD [facility] Phone: [facility] 10-27-2022 20:03-0400 Diastolic blood pressure 76 mm[Hg] Anna Callahan MD Work Phone: [facility] [employer] 10-27-2022 20:03-0400 SaO2% (BldA) [Mass fraction] 98 % Anna Callahan MD Work Phone: [facility] [employer] 10-27-2022 20:03-0400 Systolic blood pressure 126 mm[Hg] Anna Callahan MD Work Phone: [facility] 10-27-2022 15:17-0400 Body weight 104.33 kg Anna Callahan MD Work Phone: [facility] 10-27-2022 15:15-0400 Body temperature 97.9 [degF] Anna Callahan MD Work Phone: [facility] 10-27-2022 15:15-0400 Heart rate 100 /min Anna Callahan MD Work Phone: [facility] 10-27-2022 15:15-0400 Respiratory rate 18 /min Anna Callahan MD Work Phone: [facility] Encounters Encounter Date Encounter Type Care Provider Facility Start: 12-02-2023 End: 12-02-2023 ambulatory [facility] Start: 11-27-2023 End: 11-27-2023 Office outpatient new 45 minutes Jaylen Brown MD Work Phone: [facility] Comment on above: Obesity, Class II, B PR 35-39.9 (Primary Dx); Gastroesophageal reflux disease, unspecified whether esophagitis present Start: 11-27-2023 End: 11-27-2023 ambulatory [facility] Start: 10-27-2022 End: 10-27-2022 Emergency department patient visit Anna Callahan MD Work Phone: [facility] Comment on above: Left flank pain (Berenice denilson Dx) Start: 04-21-2022 End: 04-22-[address] FRANCIA ROWELL . Facility:[facility] Start: 03-24-2022 End: 03-25-[address] FRANCIA ROWELL . Facility:[facility] Start: 03-19-2022 End: 03-19-[address] FRANCIA ROWELL . Facility: Start: 12-05-2016 End: 12-05-2016 Patient encounter ARIES HARO Facility:[facility] Start: 11-29-2016 End: 11-29-2016 Patient encounter [facility] Facility:[facility] Procedures Date Procedure Procedure Detail Performing Clinician [...] Adult BMI Screening Adult BMI Screen ing [facility] Start: 05-08-2024 DTaP,Tdap and Td Vac cines (2 - Td or Tdap) DTaP,Tdap and Td Vaccines (2 - Td or Tdap) [facility] Start: 12-11-2023 End: 12-11-2023 Telemedicine consultation with patient 12/11/2023 9:00 AM EDT Telemedicine [facility] [address] [place] [address] Chrissy Sow LD [address] [place], [place] [id number] [facility] Start: 11-27-2023 End: 11-26-2024 RF Gastrointestinal tract upper Views W air contrast PO and W barium contrast PO Fluoroscopy upper GI with esophagus Imaging Routine Obesity, Class II, BMI 35-39.9 Expected: 11/27/2023, Expires: 11/26/2024 [facility] Comment on above: Expected: 11/27/2023 , Expires: 11/26/2024 Start: 10-11-2023 COVID-19 Vaccine () COVID-19 Vaccine () [facility] Start: 10-11-2023 Influenza vaccination Influenza Vacc ine [facility] Start: 10-06-2023 Tobacco Screening Tobacco Screening [facility] Start: 04-16-2023 Depression Screening Depression Scre ening [facility] Start: 09-09-2022 Influenza vaccination Flu vaccine (# 1) [facility] Start: 2021 Lipid panel Lipids [facility] Start: 05-01-2011 Screening for malign ant neoplasm of cervix [facility] Start: 2002 Screening for malign ant neoplasm of cervix Pap smear [facility] Start: 2000 DTaP/Tdap/Td vaccine (1 - Tdap) DTaP/Tdap/Td vaccine (1 - Tdap) [facility] Start: 05-01-1999 Adult BMI Follow Up Plan Adult BMI Follow Up Plan [facility] Start: 05-01-1999 Hepatitis C screening Hepatitis C sc reen [facility] Start: 1996 HIV screening HIV screen [facility] Start: 1993 Depression Screen Depression Screen [facility] Start: 1982 Varicella vaccine (1 of 2 - 2-dose childhood series) Varicella vaccine (1 of 2 - 2-dose childhood series) [facility] Start: 1981 COVID-19 Vaccine (#1) COVID-19 Vacci ne (#1) [facility] Start: 1981 Hepatitis B vaccine (1 of 3 - 3-dose series) Hepatitis B vaccine (1 of 3 - 3-dose series) [facility] End: 11-26-2024 CBC W Auto Differential panel - Blood CBC auto differential Lab Routine Obesity, Class II, BMI 35-39.9 1 Occurrences starting 11/27/2023 until 11/26/2024 [facility] Work Phone: Comment on above: 1 Occurrences starti ng 11/27/2023 until 11/26/2024 End: 10-27-2022 Culture, Urine [facility] Work Phone: Comment on above: One Time for 1 Occur rences starting 10/27/2022 until 10/27/2022 End: 11-26-2024 Cyanocobalamin vitamin b-12 Vitamin B12 Lab Routine Obesity, Class II, BMI 35-39.9 1 Occurrences starting 11/27/2023 until 11/26/2024 [facility] Comment on above: 1 Occurrences starti ng 11/27/2023 until 11/26/2024 End: 11-26-2024 Hemoglobin A1c/Hemoglobin.total in Blood Hemoglobin A1c Lab Routine Obesity, Class II, BMI 35-39.9 1 Occurrences starting 11/27/2023 until 11/26/2024 [facility] Comment on above: 1 Occurrences starti ng 11/27/2023 until 11/26/2024 End: 11-26-2024 Iron [Mass/volume] in Serum or Plasma Iron Lab Routine Obesity, Class II, BMI 35-39.9 1 Occurrences starting 11/27/2023 until 11/26/2024 [facility] Comment on above: 1 Occurrences starti ng 11/27/2023 until 11/26/2024 End: 11-26-2024 Liver panel Liver panel Lab Routine Obesity, Class II, BMI 35-39.9 1 Occurrences starting 11/27/2023 until 11/26/2024 [facility] Comment on above: 1 Occurrences starti ng 11/27/2023 until 11/26/2024 End: 11-26-2024 Parathyroid Hormone, intact Parathyroid Hormone, intact Lab Routine Obesity, Class II, BMI 35-39.9 1 Occurrences starting 11/27/2023 until 11/26/2024 [facility] Comment on above: 1 Occurrences starti ng 11/27/2023 until 11/26/2024 End: 11-26-2024 Thyrotropin [Units/volume] in Serum or Plasma TSH Lab Routine Obesity, Class II, BMI 35-39.9 1 Occurrences starting 11/27/2023 until 11/26/2024 [facility] Comment on above: 1 Occurrences starti ng 11/27/2023 until 11/26/2024 End: 11-26-2024 Vitamin D 25 hydroxy Vitamin D 25 hydroxy Lab Routine Obesity, Class II, BMI 35-39.9 1 Occurrences starting 11/27/2023 until 11/26/2024 [facility] Comment on above: 1 Occurrences starti ng 11/27/2023 until 11/26/2024 Immunizations Immunization Date Immunization Notes Care Provider Fa cili 11-02-2021 influenza virus vaccine, unspecified formulation Jaylen Brown MD Work Phone: [facility] [employer] Payers Date Payer Category Payer Managed Care Other (unspecified) [employer] [id number] 2023 Unknown [id number] 2016 Unknown [id number] 1981 Unknown [id number] 1981 Unknown [id number] .[id number] 1981 Unknown [id number] .[id number] 1981 Unknown [id number] .[id number] 1981 Unknown [id number] .[id number] 1981 Unknown [id number] .[id number] 1981 Unknown [id number] .[id number] 1959 Unknown [id number] Social History Date Type Detail Facility Tobacco smoking stat [facility] Tobacco smoking consumption unknown [facility] Start: 1981 Sex Assigned At Not on file [facility] Start: 03-22-2020 End: 10-05-2022 Gender identity Not on file [facility] Start: 05-17-2021 Tobacco smoking stat us NHIS Occasional tobacco smoker [facility] History of tobacco use Cigarette Smoker P [employer] [facility] Start: 03-22-2020 End: 05-17-2021 Cigarettes smoked current (pack per day) - Reported 0.5 [facility] Start: 05-17-2021 Tobacco use and exposure Smokeless tobacco non-user [facility] Start: 10-05-2022 Alcoholic beverage intake Current non-drinker of alcohol (finding) [facility] Adolescent depressio n screening assessment 0 [facility] Start: 09-14-2014 Sex Female (finding) [facility] Medical Equipment Procedure Code Equipment Code Equipment Origin al Text Equipment Identifier Dates [place] Sut 4.75m m Swivelock Cls Eylt Vnt Pk 19.1mm Strl Disp Cls Use [id number] Ea=Bill Only - [id number] Start: 05-29-2021 History of Present illness Narrative 11-27-2023 Jaylen Brown MD - 11/27/2023 9:00 AM EDT Note Date & Type Note Facility 11-27-2023 History of Present illness Narrative [facility] [address] [facility] [id number] [facility] SURGICAL WEIGHT LOSS PROGRAM INITIAL EVALUATION Patient: [...] Performed by Aries Haro Jr., DO at [facility] ARTHROSCOPY REPAIR ROTATOR CUFF SHOULDER 20056, SUBACROMIAL DECOMPRESSION 71863/extensive debridement Right 05/29/2021 Performed by Luigi Vargas MD at [facility] CHOLECYSTECTOMY COLONOSCOPY N/A 2017 Performed by Sancho Curry MD at [facility] EGD N/A 2017 Performed by Sancho Curry MD at [facility] HYSTERECTOMY partial OOPHORECTOMY Right Family History: [...] Parkinson's [] [x] Anxiety disorder [] [x] Genitourinary/Cushion Sewer YES NO Skin Intact [x] [] Urinary [...] you have any difficulty moving your head [id number]? [x] No [] Yes Do you have [...] turgor normal, no rashes or lesions Neurologic: material engineer intact, normal strength. Alert and oriented. Follows [...] Testing Screening Chest Xray and EKG at PAT appointment Labwork: Final Lab Tests at PAT appointment Please note that this chart was generated using voice recognition [employer] dictation software. Although every effort was made to ensure the accuracy of this automated supervisor cold rolling, some errors in supervisor cold rolling may have occurred. documented in this encounter [facility] Discharge instructions 10-27-2022 Discharge InstructionsAttachments Note [...] cannot be sent through Care Everywhere.Flank Pain (Mauritian)documented in this encounter [facility] Evaluation note Note Date & Type Note Facility Evaluation note Diagnosis Left flank pain- Primary Abdominal pain, unspecified site documented in this encounter [facility] Evaluation note Note Date & Type Note Facility Evaluation note Diagnosis Obesity, Class II, BMI 35-39.9- Primary Gastroesophageal reflux disease, unspecified whether esophagitis present documented in this encounter [facility] Instructions Note Date & Type Note Facility Instructions Not on filedocumented in this en counter [facility] Summary Purpose Family History No Family History Records FoundNo Family History Records FoundNo Family History Records FoundNo Family History Records FoundNo Family History Records Found Advance Directives No Advanced Directives Records FoundNo Advanced Directives Records FoundNo Advanced Directives Records FoundNo Advanced Directives Records FoundNo Advanced Directives Records Found Additional Source Comments INFORMATION SOURCE (unrecogn ized section and content) DATE CREATED AUTHOR 08/22/2017 [facility] DATE CREATED AUTHOR AUTHOR'S ORGANIZ ATION 04/28/2022 [facility] DATE CREATED AUTHOR AUTHOR'S ORGANIZ ATION 08/06/2023 [facility] DATE CREATED AUTHOR AUTHOR'S ORGANIZ ATION 11/29/2023 [facility] DATE CREATED AUTHOR AUTHOR'S ORGANIZ ATION 12/03/2023 [facility] Reason for Visit (unrecogniz ed section and [...] be given over 10 to 15 minutes 1757 (New Bag - Prov ider: Karen Nuno RN)2002 (Stopped - Provider: Karen Nuno RN) PRN Medication Order 10/25/2022 10/26/2022 10/27/2022 iopamidol (ISOVUE-370) 76 % injection 75 mL (COMPLETED) 75 mL, IntraVENous, IMG ONCE PRN, 1 dose, Starting on 10/27/22 at 1746, Until Thu10/27/22 at 1749, Other 1749 (Given - Provid er: Rima Gleason) Care Teams (unrecognized sec tion and content) Identification Officer Relationship Specialty Start Date End Date Francia [...] BE BASED ON THE PRIMARY CLINICAL RECORDS. [employer] [facility]. provides no warranty or guarantee of the accuracy or completeness of information in this document.
[2023-12-04 09:56] VITALS: BP 144/80; PULSE 76; O2SAT 97; BMI 36.3
== END 2023-12-04 10:32 | disposition home or self-care (01) ==
LOC: VC 08:47
PROVIDERS: PCP Family Medicine; Visit Provider Family Medicine
DX: R60.0 Localized edema (principal)
CPT/HCPCS: G0463

== ENCOUNTER 2023-12-29 14:18 | Outpatient (OUT) | payer OTHER, SELFPAY ==
--- NOTE | 2023-12-29 09:46 | VEINCLINIC_ITS ---
Vital Signs 12/29/23 14:28 BP 126/60 BP Location Right Brachial BP Position Sitting BP Cuff Size Adult BP Source Manual Cuff Respiration 16 Pulse 78 Pulse Source Monitor Pulse Oximetry (%) 96 Oxygen Delivery Method Room Air Comment The patient's blood pressure is elevated. Varicose Veins Patient in this day for EVLT of left GSV Raj Nogueira MD personally performed the services described in this documentation, as scribed by Juve Cardoso RN in my presence and it is both accurate and complete. Juve Nogueira RN, am scribing for, and in the presence of, Dr. Raj Helms and in the presence of the patient. thigh: bilateral, knee: bilateral, calf: bilateral, ankle: bilateral and alamo: bilateral aching, cramping, dull and tender 5 1 year Worsened in recent months: Yes standing and sitting elevating extremities and compression stockings Reports firmness, heaviness, restless legs, pruritus, limb pain, edema and leg edema History of lower extremity trauma: No Superficial thrombophlebitis: No Family history of varicose veins: yes Has patient had previous lower extremity venous surgery: No Patient has previously received the following treatment(s) for lower extremity varicose veins: Reports none Does patient have a history of : yes Does patient intend to have future pregnancies: no Has patient had lower extremity venous scan with relux testing: Yes Support hose used: Yes Problems walking or doing physical activity: Yes How does it affect you: difficulty standing at work for long periods Do you walk much: Yes Do you stand much: Yes Review of Systems ROS Narrative Raj Nogueira MD personally performed the services described in this documentation, as scribed by Juve Cardoso RN in my presence and it is both accurate and complete. Juve Nogueira RN, am scribing for, and in the presence of, Dr. Raj Helms and in the presence of the patient. 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, unspecified (ICD-10) Rotator cuff arthropathy of right shoulder ?M12.811 - Other specific arthropathies, not elsewhere classified, right shoulder (ICD-10) Hypertension ?I10 - Essential (primary) hypertension (ICD-10) Tachycardia ?R00.0 - Tachycardia, unspecified (ICD-10) Pain due to varicose veins of both lower extremities ?I83.813 - Varicose veins of bilateral lower extremities with pain (ICD-10) Surgical History (Updated 12/29/23 @ 15:04 by Juve Cardoso) Status post laser ablation of incompetent vein ?Z98.890 - Other specified postprocedural states (ICD-10) History of appendectomy ?Z90.49 - Acquired absence of other specified parts of digestive tract (ICD- 10) History of cholecystectomy ?Z90.49 - Acquired absence of other specified parts of digestive tract (ICD- 10) H/O: hysterectomy ?Z90.710 - Acquired absence of both cervix and uterus (ICD-10) History of arthroplasty of left ankle ?Z96.662 - Presence of left artificial ankle joint (ICD-10) Family History (Updated 12/04/23 @ 09:16 by Christal Lima RN) Grandmother Pain due to varicose veins of both lower extremities Family history of CHF (congestive heart failure) Family history of cancer Family history of diabetes mellitus Family history of hypertension Niece Lupus Grandfather Family history of COPD (chronic obstructive pulmonary disease) Family history of hypertension Father Family history of cancer Sister Family history of diabetes mellitus Family history of hypertension Mother Family history of hypertension Social History (Updated 12/04/23 @ 09:17 by Christal Lima RN) Within the past year, how often did you have a drink containing alcohol: monthly or less Smoking status: Current some day smoker Nicotine containing products detail: 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 Non-prescribed substance use: denies use Meds Home Medications and Allergies Home Medications ?Medication ?Instructions ?Recorded ?Confirmed ?Type triamcinolone acetonide 0.1 % applic topical BID 09/04/23 History topical cream furosemide 40 mg tablet (Lasix) 40 mg PO DAILY 12/04/23 12/04/23 History meloxicam 15 mg tablet 15 mg PO DAILY 12/04/23 12/04/23 History metoprolol succinate 50 mg 25 mg PO BID 12/04/23 12/04/23 History tablet,extended release 24 hr (Toprol XL) nicotine 14 mg/24 hr daily 1 patch transdermal DAILY 12/04/23 12/04/23 History transdermal patch pantoprazole 20 mg tablet,delayed 20 mg PO DAILY 12/04/23 12/04/23 History release (Protonix) potassium chloride 20 mEq oral 20 meq PO DAILY 12/04/23 12/04/23 History packet (Klor-Con) Allergies Allergy/AdvReac Type Severity Reaction Status Date / Time hydromorphone (From Dilaudid) Allergy Severe Swelling Verified 09/04/23 20:07 of the Eye Exam Narrative Exam Narrative: Raj Nogueira MD personally performed the services described in this documentation, as scribed by Juve Cardoso RN in my presence and it is both accurate and complete. Juve Nogueira RN, am scribing for, and in the presence of, Dr. Raj Helms and in the presence of the patient. Constitutional Documenting provider has reviewed patient's vital signs: yes Common normals: oriented x3 Nutritional appearance: overweight Lymph Lymphatic: no lymphedema noted Cardio Peripheral pulses: posterior tibial pulses present and dorsalis pedis pulses present Extremity General: calf tenderness, edema and other findings Right lower extremity: lower leg Right lower leg: inspection and palpation Left lower extremity: lower leg Left lower leg: inspection and palpation Neuro Common normals: oriented x3 Assessment and Plan Assessment and Plan (1) Pain due to varicose veins of both lower extremities: Plan f/u examination with physician along with left leg limited u/s Raj Nogueira MD personally performed the services described in this documentation, as scribed by Juve Cardoso RN in my presence and it is both accurate and complete. Juve Nogueira RN, am scribing for, and in the presence of, Dr. Raj Helms and in the presence of the patient. Procedures Procedure Instructions Procedures Plan of care: Risks and benefits of the procedure were discussed at length and informed written consent was obtained.? Time-out completed for verification of correct patient, procedure and site.? Staff present during time-out: Juve Cardoso RN,? Cesar Salcido MD, Libertad Britt RDMS,RVT. Time Out Time__1500 Patient prepped and procedure performed in usual sterile fashion. Risk of injury related to use of Diode laser and/or laser devices? __CR___ ? Serial number of laser used :? [id number] Control panel self test performed, electrical cords in good condition, floor is dry, basin of water available, fire extinguisher in close proximity_CR__ Polycarbonate goggles available and Laser warning signs outside of doors___CR__ Eye protection provided to patient and staff in room_CR___ Use of laser retardant drapes and dull blackened instruments as directed__CR___ Use of nonflammable prep solutions and use of saline soaked sponges to protect tissues as indicated _CR___ Length ___45 cm Laser operated by __Dr. Helms Physician verbal confirmation laser locked in place__CR__ Laser start time (date and time) _12/29/2023@__1513 Laser stop time(date and time) __12/29/2023@__1519 Lopez _8.0___ Average laser use __2955 Joules Average laser use___369 seconds Pulse continuous ___CR_? Pulse intermittent ___ Amount of Tumescent used _250cc Evaluated patient for signs and symptoms of electrical injury __CR___ ? Skin clear at insertion site __CR___ Patient tolerated procedure well.? Left leg Coban dressing applied to access site.? Applied leftt thigh high leg compression stocking. Will return on 01/01/2024 for left leg limited venous ultrasound and exam. IRaj MD personally performed the services described in this documentation, as scribed by Juve Cardoso RN in my presence and it is both accurate and complete. I, Juve Cardoso RN, am scribing for, and in the presence of, Dr. Raj Helms and in the presence of the patient.
--- NOTE | 2023-12-29 11:12 | P.DS_ITS ---
Discharge Plan Discharge Disposition: Home, Self-Care Follow Up Appointments: 01/31/2024 Plan of Treatment: f/u examination with physician along with right leg limited u/s Patient Instructions: Endovenous Ablation (DC) Print Language: [place] Citizen Discharge Date/Time: 12/29/23 15:10
--- NOTE | 2023-12-29 14:22 | VEIN_ITS ---
[address] [address] Patient Name: TAMY CHAPIN MRN: [id number] date: 1980 Sex: F Assigned Patient Location: Current Patient Location: Accession/Order Number: [id number] Exam Date: 12/29/2023 14:27 Report Date: 12/29/2023 15:43 At the request of: ABEL COLES Procedure: VC Endovenous Ablation 1VeinLT EXAMINATION: VC Endovenous Ablation 1VeinLT HISTORY: I83.813 - Varicose veins of bilateral lower extremities w... The risks and benefits of the procedure had been previously discussed, and were rediscussed at length. Informed written consent was obtained. Juve Cardoso RN and Libertad Britt RDMS, RVT assisted. Time out procedure was performed. The left lower extremity was prepared and draped in the usual sterile fashion to allow knee flexion in the sterile field. Duplex ultrasound probe was draped in a sterile cover, sterile transmission gel was used. Venous mapping was performed with the areas of dilation and large tributaries marked. The total length was 45 cm from the entry mid calf to 3 cm below the Saphenofemoral junction. The diameter of the left great saphenous vein ranged from 8.2 mm. A 30 gauge needle and 1% buffered lidocaine was used to anesthetize the entry site. A 4 mm incision was made with a scalpel and the saphenous vein was entered percutaneously under direct ultrasound guidance with a micropuncture set, a single stick was successful in gaining access. A micro-guide wire was inserted and the needle removed. A micro-set including a dilator was inserted over the microwire and the needle and dilator were removed. A guide wire was inserted through the micro-set and guided through the saphenous vein to the saphenofemoral junction. The dilator was removed and an introducer sheath was inserted over the wire until the end of the sheath entered the saphenofemoral junction. The dilator and wire were removed and the 600 micron fiber was introduced and placed and positioned so that it extended beyond the sheath and was 3 cm distal to the saphenofemoral or saphenopopliteal junction. Final position of the fiber was determined by ultrasound guidance and duplex imaging. Tumescent anesthetic was delivered by ultrasound guidance. 250 cc of fluid was delivered along the entire course of the saphenous vein. The solution consisted of 1000 cc of normal saline with 40 mL of 1% lidocaine and 20 mL of sodium bicarbonate. A final positioning check was made. The energy source was turned on by means of the foot pedal and the fiber and sheath were withdrawn. The total number of Joules delivered was 2955. The laser was active for 369 seconds under continuous pulse, average laser use of 8 J. Laser start time: 3:13 PM Laser stop time: 3:19 PM Date: 12/29/2023. A duplex ultrasound revealed compressibility and flow at the saphenofemoral junction immediately after the procedure. Hemostasis at the access site was achieved. The skin incision of the saphenous vein was closed with a 4 x 4. A compression stocking was applied. Postop instructions were given. A follow up appointment was recommended and scheduled. The patient tolerated the procedure well. Electronically authenticated by: ABEL COLES Date: 12/29/2023 15:43
[2023-12-29 14:28] VITALS: BP 126/60; PULSE 78; O2SAT 96
== END 2023-12-29 15:10 | disposition home or self-care (01) ==
LOC: VC 14:20
PROVIDERS: PCP Family Medicine; Visit Provider Radiology Diagnostic Radiology
DX: I83.813 Varicose veins of bilateral lower extremities with pain (principal)
CPT/HCPCS: 36478

== ENCOUNTER 2024-01-01 12:26 | Outpatient (OUT) | payer OTHER, SELFPAY ==
--- NOTE | 2023-12-31 15:43 | VEINCLINIC_ITS ---
Vital Signs 01/01/24 12:36 BP 138/72 BP Location Left Brachial BP Position Sitting BP Cuff Size Large Adult BP Source Manual Cuff Respiration 18 Pulse 93 H Pulse Source Monitor Pulse Oximetry (%) 98 Oxygen Delivery Method Room Air Comment The patient's blood pressure is elevated. Varicose Veins Patient in this day for EVLT of right GSV Raj Nogueira MD personally performed the services described in this documentation, as scribed by Juve Cardoso RN in my presence and it is both accurate and complete. Juve Nogueira RN, am scribing for, and in the presence of, Dr. Raj Helms and in the presence of the patient. thigh: bilateral, knee: bilateral, calf: bilateral, ankle: bilateral and alamo: bilateral aching, cramping, dull and tender 5 1 year Worsened in recent months: Yes standing and sitting elevating extremities and compression stockings Reports firmness, heaviness, restless legs, pruritus, limb pain, edema and leg edema History of lower extremity trauma: No Superficial thrombophlebitis: No Family history of varicose veins: yes Has patient had previous lower extremity venous surgery: No Patient has previously received the following treatment(s) for lower extremity varicose veins: Reports none Does patient have a history of : yes Does patient intend to have future pregnancies: no Has patient had lower extremity venous scan with relux testing: Yes Support hose used: Yes Problems walking or doing physical activity: Yes How does it affect you: difficulty standing at work for long periods Do you walk much: Yes Do you stand much: Yes Review of Systems ROS Narrative Raj Nogueira MD personally performed the services described in this documentation, as scribed by Juve Cardoso RN in my presence and it is both accurate and complete. Juve Nogueira RN, am scribing for, and in the presence of, Dr. Raj Helms and in the presence of the patient. 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, unspecified (ICD-10) Rotator cuff arthropathy of right shoulder ?M12.811 - Other specific arthropathies, not elsewhere classified, right shoulder (ICD-10) Hypertension ?I10 - Essential (primary) hypertension (ICD-10) Tachycardia ?R00.0 - Tachycardia, unspecified (ICD-10) Pain due to varicose veins of both lower extremities ?I83.813 - Varicose veins of bilateral lower extremities with pain (ICD-10) Surgical History (Updated 01/01/24 @ 12:58 by Juve Cardoso) Status post laser ablation of incompetent vein ?Z98.890 - Other specified postprocedural states (ICD-10) Status post laser ablation of incompetent vein ?Z98.890 - Other specified postprocedural states (ICD-10) History of appendectomy ?Z90.49 - Acquired absence of other specified parts of digestive tract (ICD- 10) History of cholecystectomy ?Z90.49 - Acquired absence of other specified parts of digestive tract (ICD- 10) H/O: hysterectomy ?Z90.710 - Acquired absence of both cervix and uterus (ICD-10) History of arthroplasty of left ankle ?Z96.662 - Presence of left artificial ankle joint (ICD-10) Family History (Updated 12/04/23 @ 09:16 by Christal Lima RN) Grandmother Pain due to varicose veins of both lower extremities Family history of CHF (congestive heart failure) Family history of cancer Family history of diabetes mellitus Family history of hypertension Niece Lupus Grandfather Family history of COPD (chronic obstructive pulmonary disease) Family history of hypertension Father Family history of cancer Sister Family history of diabetes mellitus Family history of hypertension Mother Family history of hypertension Social History (Updated 12/04/23 @ 09:17 by Christal Lima RN) Within the past year, how often did you have a drink containing alcohol: monthly or less Smoking status: Current some day smoker Nicotine containing products detail: 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 Non-prescribed substance use: denies use Meds Home Medications and Allergies Home Medications ?Medication ?Instructions ?Recorded ?Confirmed ?Type triamcinolone acetonide 0.1 % applic topical BID 09/04/23 History topical cream furosemide 40 mg tablet (Lasix) 40 mg PO DAILY 12/04/23 12/04/23 History meloxicam 15 mg tablet 15 mg PO DAILY 12/04/23 12/04/23 History metoprolol succinate 50 mg 25 mg PO BID 12/04/23 12/04/23 History tablet,extended release 24 hr (Toprol XL) nicotine 14 mg/24 hr daily 1 patch transdermal DAILY 12/04/23 12/04/23 History transdermal patch pantoprazole 20 mg tablet,delayed 20 mg PO DAILY 12/04/23 12/04/23 History release (Protonix) potassium chloride 20 mEq oral 20 meq PO DAILY 12/04/23 12/04/23 History packet (Klor-Con) Allergies Allergy/AdvReac Type Severity Reaction Status Date / Time hydromorphone (From Dilaudid) Allergy Severe Swelling Verified 09/04/23 20:07 of the Eye Exam Narrative Exam Narrative: Raj Nogueira MD personally performed the services described in this documentation, as scribed by Juve Cardoso RN in my presence and it is both accurate and complete. Juve Nogueira RN, am scribing for, and in the presence of, Dr. Raj Helms and in the presence of the patient. Constitutional Documenting provider has reviewed patient's vital signs: yes Common normals: oriented x3 Nutritional appearance: overweight Lymph Lymphatic: no lymphedema noted Cardio Peripheral pulses: posterior tibial pulses present and dorsalis pedis pulses present Extremity General: calf tenderness, edema and other findings Right lower extremity: lower leg Right lower leg: inspection and palpation Left lower extremity: lower leg Left lower leg: inspection and palpation Neuro Common normals: oriented x3 Assessment and Plan Assessment and Plan (1) Pain due to varicose veins of both lower extremities: (2) Superficial thrombophlebitis of both legs: Plan f/u evaluation with physician along with right leg limited u/s Raj Nogueira MD personally performed the services described in this documentation, as scribed by Juve Cardoso RN in my presence and it is both accurate and complete. Juve Nogueira RN, am scribing for, and in the presence of, Dr. Raj Helms and in the presence of the patient. Procedures Procedure Instructions Procedures Plan of care: Risks and benefits of the procedure were discussed at length and informed written consent was obtained.? Time-out completed for verification of correct patient, procedure and site.? Staff present during time-out: Juve Cardoso RN,? Raj Helms MD, Maria Elena Blackburn [facility], Time Out Time__1257 Patient prepped and procedure performed in usual sterile fashion. Risk of injury related to use of Diode laser and/or laser devices__CR___ ? Serial number of laser used :? [id number] Control panel self test performed, electrical cords in good condition, floor is dry, basin of water available, fire extinguisher in close proximity_CR__ Polycarbonate goggles available and Laser warning signs outside of doors___CR__ Eye protection provided to patient and staff in room_CR___ Use of laser retardant drapes and dull blackened instruments as directed__CR___ Use of nonflammable prep solutions and use of saline soaked sponges to protect tissues as indicated _CR___ Length ___58 cm Laser operated by _Dr. Helms Physician verbal confirmation laser locked in place__CR__ Laser start time (date and time) _01/01/2024@__1311 Laser stop time(date and time) _01/01/2024@__1322 Lopez _8.0___ Average laser use __3775 Joules Average laser use__472 seconds Pulse continuous ___CR_? Pulse intermittent ___ Amount of Tumescent used _300cc Evaluated patient for signs and symptoms of electrical injury __CR___ ? Skin clear at insertion site __CR___ Patient tolerated procedure well.? Right leg Coban dressing applied to access site.? Applied right thigh high leg compression stocking. Will return on 01/05/2024 for right leg limited venous ultrasound and exam. I, Raj Helms MD personally performed the services described in this documentation, as scribed by Juve Cardoso RN in my presence and it is both accurate and complete. I, Juve Cardoso RN, am scribing for, and in the presence of, Dr. Raj Helms and in the presence of the patient.
--- NOTE | 2023-12-31 15:48 | P.DS_ITS ---
Discharge Plan Discharge Disposition: Home, Self-Care Outpatient Diagnostics: VC Facility EST LMTD (Routine) Timeframe: 2 Weeks Facility: [facility] - Location[facility] Ordered By: Raj Helms VC EXT Venous HARSHAD Limited (Routine) Timeframe: 2 Weeks Facility: [facility] - Location: [facility] Ordered By: Raj Helms Follow Up Appointments: 01/05/2024 Plan of Treatment: f/u evaluation with physician along with right leg limited u/s Patient Instructions: Endovenous Ablation (DC) Print Language: Georgian Discharge Date/Time: 01/01/24 13:01
[2024-01-01] MEDS: LIDOCAINE HCL 1% 100 MG/10 ML MDV INJ (12:28)
[2024-01-01] MEDS: 0.9 % SODIUM CHLORIDE 500 ML, LIDOCAINE HCL 20 ML, SODIUM BICARBONATE 10 MEQ INJ (12:28)
--- OUTSIDE RECORDS SUMMARY | 2024-01-01 12:31 | XMS_ITS | CCD ---
Author Organization [facility] Care Team Providers Care Electrical Accessories I Assembler Name Role Phone STEPANIC, ARIES C Unavailable Unavailable STEPANIC, ARIES C Unavailable Unavailable HOY, FRANCIA Unavailable Unavailable KerBunny garvey M Unavailable Unavailable STEPANIC, ARIES C Unavailable Unavailable [...] Unavailable HOY ., DR FELDMAN Consulting Unavailable [place], DR MAURICIO Fraser Consulting Unavailable Unavailable Primary Care Provider UnavailANNA Elmore Attending Unavailable Francia Rowell MD Primary Care Provider [phone] JAYLEN BROWN Attending Unavailable HOY, FRANCIA M Referring Unavailable HOY, FRANCIA M Primary Care Unavailable JAYLEN BROWN Referring Unavailable HOY, FRANCIA M Primary Care Unavailable JAYLEN BROWN N Referring Unavailable HOY, FRANCIA M Primary Care Unavailable SURESH SALAZAR Attending Unavailable HOY, FRANCIA M Referring Unavailable HOY, FRANCIA M Primary Care Unavailable Allergies Allergy Classification Reported Allergen(s) Allergy Type Date of Onset Reaction(s) Facility (1 source) acetaminophen / oxyCODONE; Translations: [Percocet ] Drug Allergy [facility] Repository (2 sources) HYDROmorphone; Translations: [Dilaudid] Drug Allergy [facility] Repository (1 source) egg extract Drug Allergy 7 [facility] Repository (6 sources) HYDROmorphone; Translations: [HYDROMORPHONE] Drug Allergy 8 [facility] Medications Current Medications Medication Drug Class(es) Dates Sig (Normalized) Sig (Original) 1 ml erenumab-aooe 70 mg/ml auto-injector (2 sources) inject 140 mg by subcutaneous injection every 30 days erenumab-aooe 70 mg/mL auto-injector Inject 140 mg under the skin every 30 (thirty) days. Active furosemide 40 mg oral tablet (2 sources) Loop Diuretic Start: 11-24-2023 take 1 tablet [...] (Therapy completed) meloxicam 15 mg oral tablet (2 sources) Nonsteroidal Anti-inflammatory Drug Start: 11-02-2023 take 1 tablet by mouth in the morning meloxicam (MOBIC) 15 mg tablet Take 1 tablet (15 mg total) by mouth in the morning. 11/02/2023 Active metoprolol tartrate 50 mg oral tablet (3 sources) beta-Adrenergic Carlos take 1 tablet by [...] pantoprazole 40 mg delayed release oral tablet (2 sources) Proton Pump Inhibitor Start: 11-02-2023 take 1 tablet by mouth once daily before breakfast pantoprazole (PROTONIX) 40 mg EC tablet Take 1 tablet (40 mg total) by mouth every morning before breakfast. 11/02/2023 Active microencapsulated potassium chloride 20 meq extended release oral tablet (2 sources) Start: 11-13-2023 take 1 tablet by mouth [...] Active promethazine hydrochloride 25 mg oral tablet (2 sources) Phenothiazine Start: 10-27-2023 take 1 tablet by mouth once daily as needed for nausea promethazine (PHENERGAN) 25 mg tablet Take 1 tablet (25 mg total) by mouth daily as needed for nausea. 10/27/2023 Active rimegepant 75 mg disintegrating oral tablet (2 sources) rimegepant (NURTEC ODT) 75 mg tablet,disintegra ting [...] completed) triamcinolone acetonide 1 mg/ml topical cream (2 sources) Corticosteroid Start: 04-09-2021 triamcinolone (KENALOG) 0.1 % [...] mg 2 ml ondansetron 2 mg/ml injection (3 sources) Serotonin-3 Receptor Antagonist Start: 10-27-2022 End: [...] Problem Classification Problem Date Documented Date Episodic/Chronic Administrative/social admission (2 sources) Patient encounter status; Translations: [Dietary counseling and surveillance] Onset: 12-11-2023 12-07-2023 Episodic Cardiac dysrhythmias (4 sources) Palpitations; Translations: [PALPITATIONS] [...] Episodic Other nutritional; endocrine; and metabolic disorders (5 sources) Obese class II; Translations: [Obesity, Class II, BMI 35-39.9] 11-27-2023 Chronic Other nutritional; endocrine; and metabolic disorders (1 source) Morbid obesity; Translations: [Morbid (severe) obesity due to excess calories] 12-07-2023 Chronic Other nutritional; endocrine; and metabolic disorders (1 source) Morbid (severe) obesity due to excess calories; Translations: [Morbid (severe) obesity due to excess calories] Onset: 12-11-2023 Chronic Unclassified (2 sources) Obesity, class 2; Translations: [Obesity, class 2] Onset: 11-27-2023 Unclassified (1 source) New Patient Onset: 11-27-2023 Unclassified (1 source) Nutrition Counseling Onset: 12-11-2023 Past or Other Problems Problem Classification Problem Date Documented Da te Episodic/Chronic Abdominal pain (3 sources) Unspecified abdominal pain; Translations: [Left flank pain] Onset: 03-28-2022 10-27-2022 Episodic Mood disorders (2 sources) Mood disorders Onset: 04-15-2022 04-15-2022 Nonmalignant breast conditions (4 sources) Cyst of right breast; Translations: [Solitary cyst of right breast] Onset: 03-10-2022 03-10-2022 Episodic Other and unspecified benign neoplasm (2 sources) Pituitary microadenoma; Translations: [Benign neoplasm of pituitary gland] Onset: 05-22-2020 05-13-2021 Episodic Other connective tissue disease (2 sources) Bicipital tendinitis, right shoulder; Translations: [Bicipital tenosynovitis] Onset: 05-02-2021 05-02-2021 Episodic Residual codes; unclassified (2 sources) Family history of breast cancer; Translations: [Family history of malignant neoplasm of breast] Onset: 03-04-2022 03-04-2022 Episodic Sprains and strains (4 sources) Strain of muscle(s) and tendon(s) of the rotator cuff of right shoulder, initial encounter; Translations: [Rotator cuff (capsule) sprain] Onset: 03-11-2021 05-02-2021 Episodic Results Test Name Value Interpretation Reference Range Facility CBC AND AUTO DIFFon 12-02-19 ABSOLUTE BASOPHIL 0.0 X10E9/L Normal 0.0-0.2 [facility] Comment on above: Performed By: #### L IVR, 2131-10, CBCA, 83163-1, 3016-3, 2498- 4, 2731-8, HA1C #### [facility] ([id number]) [address], [address] [place] [address] ABSOLUTE NEUTROPHIL 7.1 X10E9/L High 1.5-6.6 [facility] Comment on above: Performed By: #### L IVR, 2131-10, CBCA, 57637-2, 3016-3, 2498- 4, 2731-8, HANicole #### [facility] ([id number]) [address], [address] [place] [address] Basophils/100 WBC (Bld) 0.4 % Normal [facility] Comment on above: Performed By: #### L IVR, 2131-10, CBCA, 97929-0, 3016-3, 2498- 4, 2731-8, HA1C #### [facility] ([id number]) [address], [address] [place] [address] Eosinophils (Bld) [#/Vol] 0.1 10*3/uL Normal 0.0-0.4 [facility] Comment on above: Performed By: #### L IVR, 2131-10, CBCA, 03375-5, 3016-3, 2498- 4, 2731-8, HA1C #### [facility] ([id number]) [address], [address] [place] [address] Eosinophils/100 WBC (Bld) 0.6 % Normal [facility] Comment on above: Performed By: #### L IVR, 2131-10, CBCA, 36061-6, 3016-3, 2498- 4, 2731-8, HA1C #### [facility] ([id number]) [address], [address] [place] [address] Erythrocyte distribution width (RBC) [Ratio] 14.1 % Normal 11.5-15.0 [facility] Comment on above: Performed By: #### L IVR, 2131-10, CBCA, 30777-9, 3016-3, 2498- 4, 2731-8, HA1C #### [facility] ([id number]) [address], [address] [place] [address] Hematocrit (Bld) [Volume fraction] 42.9 % Normal 35-47 [facility] Comment on above: Performed By: #### L IVR, 2131-10, CBCA, 11047-1, 3016-3, 2498- 4, 2731-8, HA1C #### [facility] ([id number]) [address], [address] [place] [address] Hemoglobin (Bld) [Mass/Vol] 14.5 g/dL Normal 11.7-15.5 [facility] Comment on above: Performed By: #### L IVR, 2131-10, CBCA, 67743-5, 3016-3, 2498- 4, 2731-8, HA1C #### [facility] ([id number]) [address] [place] [address] Lymphocytes (Bld) [#/Vol] 2.5 10*3/uL Normal 1.0-3.5 [facility] Comment on above: Performed By: #### L IVR, 2131-10, CBCA, 35161-5, 3016-3, 2498- 4, 2731-8, HA1C #### [facility] ([id number]) [address] [place] [address] Lymphocytes/100 WBC (Bld) 24.0 % Normal [facility] Comment on above: Performed By: #### L IVR, 2131-10, CBCA, 40989-3, 3016-3, 2498- 4, 2731-8, HA1C #### [facility] ([id number]) [address], [address] [place] [address] MCH (RBC) [Entitic mass] 31.9 pg Normal 27-34 [facility] Comment on above: Performed By: #### L IVR, 2131-10, CBCA, 20102-3, 3016-3, 2498- 4, 2731-8, HA1C #### [facility] ([id number]) [address] [place] [address] MCHC (RBC) [Mass/Vol] 33.9 g/dL Normal 32-36 [facility] Comment on above: Performed By: #### L IVR, 2131-10, CBCA, 92751-5, 3016-3, 2498- 4, 2731-8, HA1C #### [facility] ([id number]) [address] [place] [address] MCV (RBC) [Entitic vol] 94 fL Normal 80-100 [facility] Comment on above: Performed By: #### L IVR, 2131-10, CBCA, 58195-4, 3016-3, 2498- 4, 2731-8, HA1C #### [facility] ([id number]) [address], [address] [place] [address] Monocytes (Bld) [#/Vol] 0.6 10*3/uL Normal 0-0.9 [facility] Comment on above: Performed By: #### L IVR, 2131-10, CBCA, 42683-9, 3016-3, 2498- 4, 2731-8, HA1C #### [facility] ([id number]) [address], [address] [place] [address] Monocytes/100 WBC (Bld) 6.2 % Normal [facility] Comment on above: Performed By: #### L IVR, 2131-10, CBCA, 41694-4, 3016-3, 2498- 4, 2731-8, HA1C #### [facility] ([id number]) [address], [address] [place] [address] Neutrophils/100 WBC (Bld) 68.8 % Normal [facility] Comment on above: Performed By: #### L IVR, 2131-10, CBCA, 95811-0, 3016-3, 2498- 4, 2731-8, HA1C #### [facility] ([id number]) [address], [address] [place] [address] Platelet mean volume (Bld) [Entitic vol] 8.3 fL Normal 7-12 [facility] Comment on above: Performed By: #### L IVR, 2131-10, CBCA, 58225-4, 3016-3, 2498- 4, 2731-8, HA1C #### [facility] ([id number]) [address] [place] [address] Platelets (Bld) [#/Vol] 268 10*3/uL Normal 150-450 [facility] Comment on above: Performed By: #### L IVR, 2131-10, CBCA, 11602-3, 3016-3, 2498- 4, 2731-8, HA1C #### [facility] ([id number]) [address], [address] [place] [address] RBC COUNT 4.55 X10E12/L Normal 3.80-5.20 [facility] Comment on above: Performed By: #### L IVR, 2131-10, CBCA, 26984-5, 3016-3, 2498- 4, 2731-8, HA1C #### [facility] ([id number]) [address] [place] [address] WBC (Bld) [#/Vol] 10.3 10*3/uL Normal 4.0-11.0 [facility] Comment on above: Performed By: #### L IVR, 2131-10, CBCA, 18310-9, 3016-3, 2498- 4, 2731-8, HA1C #### [facility] ([id number]) [address] [place] [address] FL UGI WITH ESOPHAGUSon 11-10 FL UGI WITH ESOPHAGUS FL UGI WITH [...] Dubois DO on 12/02/2023 1:28 PM Normal [facility] HGB A1C (GLYCO-HGB)on 2023 Glucose [Mass/Vol] 100 mg/dL Normal [facility] Comment on above: Performed By: #### L IVR, 2131-10, CBCA, 96933-1, 3016-3, 2498- 4, 2731-8, HA1C #### [facility] ([id number]) [address] [place] [address] HbA1c (Bld) [Mass fraction] 5.1 % Normal 4.4-5.6 [facility] Comment on above: Result Comment: NOTE ADA Guidelines Result HgbA1c Normal : less than 5.7 % Prediabetes : 5.7 % to 6.4 % Diabetes : > 6.4 % Use with caution in patients with abnormal hemoglobin variants as the half-life of red blood cells and in vivo glycation rates are affected. Performed By: #### L IVR, 2131-10, CBCA, 14246-9, 3016-3, 2498-4, 2731-8, HA1C #### [facility] ([id number]) [address], [address] [place] [address] IRONon 12-02-2023 Iron [Mass/Vol] 87 ug/dL Normal 50-170 [facility] Comment on above: Performed By: #### L IVR, 2131-10, CBCA, 97314-9, 3016-3, 2498- 4, 2731-8, HA1C #### [facility] ([id number]) [address], [address] [place] [address] LIVER PANELon 12-02-2023 Albumin [Mass/Vol] 3.6 g/dL Normal 3.2-5.3 [facility] Comment on above: Performed By: #### L IVR, 2131-10, CBCA, 53248-6, 3016-3, 2498- 4, 2731-8, HA1C #### [facility] ([id number]) [address], [address] [place] [address] ALP [Catalytic activity/Vol] 58 U/L Normal 39-130 [facility] Comment on above: Performed By: #### L IVR, 2131-10, CBCA, 29738-2, 3016-3, 2498- 4, 2731-8, HA1C #### [facility] ([id number]) [address], [address] [place] [address] ALT [Catalytic activity/Vol] 14 U/L Normal 0-31 [facility] Comment on above: Performed By: #### L IVR, 2131-10, CBCA, 92254-2, 3016-3, 2498- 4, 2731-8, HA1C #### [facility] ([id number]) [address], [address] [place] [address] AST [Catalytic activity/Vol] 14 U/L Normal 0-41 [facility] Comment on above: Performed By: #### L IVR, 2131-10, CBCA, 29425-4, 3016-3, 2498- 4, 2731-8, HA1C #### [facility] ([id number]) [address] [place] [address] Bilirubin [Mass/Vol] 0.3 mg/dL Normal 0.3-1.2 [facility] Comment on above: Performed By: #### L IVR, 2131-10, CBCA, 33096-3, 3016-3, 2498- 4, 2731-8, HA1C #### [facility] ([id number]) [address], [address] [place] [address] Bilirubin.direct [Mass/Vol] 0.0 mg/dL Normal 0.0-0.4 [facility] Comment on above: Performed By: #### L IVR, 2131-10, CBCA, 90360-2, 3016-3, 2498- 4, 2731-8, HA1C #### [facility] ([id number]) [address], [address] [place] [address] Protein [Mass/Vol] 6.6 g/dL Normal 6.0-8.0 [facility] Comment on above: Performed By: #### L IVR, 2131-10, CBCA, 51173-3, 3016-3, 2498- 4, 2731-8, HA1C #### [facility] ([id number]) [address] [place] [address] Parathyrin.intact [Mass/Vol] on 12-02-2023 PTH INTACT 23 pg/mL Normal 12-88 [facility] Comment on above: Performed By: #### L IVR, 2131-10, CBCA, 29907-9, 3016-3, 2498- 4, 2731-8, HA1C #### [facility] ([id number]) [address], [address] [place] [address] TSH Qnon 12-02-2023 TSH 1.50 uIU/mL Normal 0.49-4.67 [facility] Comment on above: Performed By: #### L IVR, 2131-10, CBCA, 83734-4, 3016-3, 2498- 4, 2731-8, HA1C #### [facility] ([id number]) [address], [address] [place] [address] VITAMIN B12on 12-02-2023 Cobalamin (Vitamin B12) [Mass/Vol] 541 pg/mL Normal 180-914 [facility] Comment on above: Performed By: #### L IVR, 2131-10, CBCA, 42224-3, 3016-3, 2498- 4, 2731-8, HA1C #### [facility] ([id number]) [address], [address] [place] [address] Vitamin D+Metabolites [Mass/ Vol]on 12-02-2023 VITAMIN D 25 HYD TOT 24.3 ng/mL Low 30-100 [facility] Comment on above: Result Comment: Vitamin D status 25 [place] Vitamin D Deficiency <20 ng/mL Insufficiency 20-29 ng/mL Sufficiency 30-100 ng/mL Toxicity >100 ng/mL NOTE: A pediatric reference range has not been established by the administrative asst of this kit. The [employer] [employer] recommends a Vitamin D level of = or >20ng/mL in infants and children. Performed By: #### L IVR, 2132-9, CBCA, 17071-8, 3016-3, 2498-4, 2731-8, HA1C #### [facility] ([id number]) [address], [address] [place] [address] CBC with Diffon 08-05-2023 Abs. Basophil <0.03 Normal 0.00-0.20 [facility] Comment on above: Performed By: #### T SH, CDP #### [facility] [address] [place] [address] [place] [place], [place] [id number] Crm Functional Analyst: Mauricio Irby MD #### LIPR, FT3, INSU, T4, FE, GLYHGB #### [address] [id number] Crm Functional Analyst: Casa Medrano MD Abs.Imm.Granulocy te 0.05 k/uL Normal 0.00-0.30 [facility] Comment on above: Performed By: #### T DANIEL, CDP #### [address] [place] [address] Crm Functional Analyst: Mauricio Irby MD #### LIPR, FT3, INSU, T4, FE, GLYHGB #### [address] [id number] Crm Functional Analyst: Casa Medrano MD Abs.Neutrophil (Seg) 7.71 k/uL Normal 1.50-8.10 [facility] Comment on above: Performed By: #### T SH, CDP #### [facility] [address] [place] [address] [place] [address] Crm Functional Analyst: Mauricio Irby MD #### LIPR, FT3, INSU, T4, FE, GLYHGB #### [address] [id number] Crm Functional Analyst: Casa Medrano MD Basophils/100 WBC (Bld) 0 % Normal 0-2 [facility] Comment on above: Performed By: #### T SH, CDP #### [address] [place] [id number] Crm Functional Analyst: Mauricio Irby MD #### LIPR, FT3, INSU, T4, FE, GLYHGB #### [address] [id number] Crm Functional Analyst: Casa Medrano MD Eosinophils (Bld) [#/Vol] 0.10 10*3/uL Normal 0.00-0.44 [facility] Comment on above: Performed By: #### T SH, CDP #### [address] [place] [id number] Crm Functional Analyst: Mauricio Irby MD #### LIPR, FT3, INSU, T4, FE, GLYHGB #### [address] [id number] Crm Functional Analyst: Casa Medrano MD Eosinophils/100 WBC (Bld) 1 % Normal 1-4 [facility] Comment on above: Performed By: #### T SH, CDP #### [address] [place] [id number] Crm Functional Analyst: Mauricio Irby MD #### LIPR, FT3, INSU, T4, FE, GLYHGB #### [address] [id number] Crm Functional Analyst: Casa Medrano MD Erythrocyte distribution width (RBC) [Ratio] 12.5 % Normal 11.8-14.4 [facility] Comment on above: Performed By: #### T SH, CDP #### [address] [place] [address] Crm Functional Analyst: Mauricio Irby MD #### LIPR, FT3, INSU, T4, FE, GLYHGB #### [address] [id number] Crm Functional Analyst: Casa Medrano MD Hematocrit (Bld) [Volume fraction] 45.1 % Normal 36.3-47.1 [facility] Comment on above: Performed By: #### T SH, CDP #### [facility] [address] [place] [address] Dr. [place], [place] [id number] Crm Functional Analyst: Mauricio Irby MD #### LIPR, FT3, INSU, T4, FE, GLYHGB #### [address] [id number] Crm Functional Analyst: Casa Medrano MD Hemoglobin (Bld) [Mass/Vol] 15.2 g/dL High 11.9-15.1 [facility] Comment on above: Performed By: #### T SH, CDP #### [address] [place] [id number] Crm Functional Analyst: Mauricio Irby MD #### LIPR, FT3, INSU, T4, FE, GLYHGB #### [address] [id number] Crm Functional Analyst: Casa Medrano MD Immature granulocytes/100 WBC (Bld) 1 % High 0 [facility] Comment on above: Performed By: #### T SH, CDP #### [address] [place], [facility] Crm Functional Analyst: Mauricio Irby MD #### LIPR, FT3, INSU, T4, FE, GLYHGB #### [address] [id number] Crm Functional Analyst: Casa Medrano MD Lymphocytes (Bld) [#/Vol] 2.55 10*3/uL Normal 1.10-3.70 [facility] Comment on above: Performed By: #### T SH, CDP #### [address] [place], [place] 5183083 Crm Functional Analyst: Mauricio Irby MD #### LIPR, FT3, INSU, T4, FE, GLYHGB #### [place] [id number] Crm Functional Analyst: Casa Medrano MD Lymphocytes/100 WBC (Bld) 23 % Low 24-43 [facility] Comment on above: Performed By: #### T SH, CDP #### [address] [place] [id number] ( Crm Functional Analyst: Mauricio Irby MD #### LIPR, FT3, INSU, T4, FE, GLYHGB #### [place] [address] Crm Functional Analyst: Casa Medrano MD MCH (RBC) [Entitic mass] 31.6 pg Normal 25.2-33.5 [facility] Comment on above: Performed By: #### T SH, CDP #### [address] [place] [id number] ( Crm Functional Analyst: Mauricio Irby MD #### LIPR, FT3, INSU, T4, FE, GLYHGB #### [place] [address] Crm Functional Analyst: Casa Medrano MD MCHC (RBC) [Mass/Vol] 33.7 g/dL Normal 28.4-34.8 [facility] Comment on above: Performed By: #### T SH, CDP #### [address] [place] [id number] Crm Functional Analyst: Mauricio Irby MD #### LIPR, FT3, INSU, T4, FE, GLYHGB #### [place] [id number] Crm Functional Analyst: Casa Medrano MD MCV (RBC) [Entitic vol] 93.8 fL Normal 82.6-102.9 [facility] Comment on above: Performed By: #### T SH, CDP #### [facility] [address] [place], [place] [id number] Crm Functional Analyst: Mauricio Irby MD #### LIPR, FT3, INSU, T4, FE, GLYHGB #### [address] [id number] Crm Functional Analyst: Casa Medrano MD Monocytes (Bld) [#/Vol] 0.60 10*3/uL Normal 0.10-1.20 [facility] Comment on above: Performed By: #### T SH, CDP #### [facility] [address] [place] [address] Crm Functional Analyst: Mauricio Irby MD #### LIPR, FT3, INSU, T4, FE, GLYHGB #### [address] [id number] Crm Functional Analyst: Casa Medrano MD Monocytes/100 WBC (Bld) 5 % Normal 3-12 [facility] Comment on above: Performed By: #### T SH, CDP #### [facility] [address] [place], [place] [id number] Crm Functional Analyst: Mauricio Irby MD #### LIPR, FT3, INSU, T4, FE, GLYHGB #### [address] [id number] Crm Functional Analyst: Casa Medrano MD Neutrophil (Seg) 70 % High 36-65 [facility] Comment on above: Performed By: #### T SH, CDP #### [facility] [address] [place] [address] Crm Functional Analyst: Mauricio Irby MD #### LIPR, FT3, INSU, T4, FE, GLYHGB #### [address] [id number] Crm Functional Analyst: Casa Medrano MD NRBC Automated 0.0 per 100 WBC Normal 0.0 [facility] Comment on above: Performed By: #### T SH, CDP #### [address] [place] [id number] Crm Functional Analyst: Mauricio Irby MD #### LIPR, FT3, INSU, T4, FE, GLYHGB #### [address] [id number] Crm Functional Analyst: Casa Medrano MD Platelet mean volume (Bld) [Entitic vol] 9.2 fL Normal 8.1-13.5 [facility] Comment on above: Performed By: #### T SH, CDP #### [address] [place] [phone] Crm Functional Analyst: Mauricio Irby MD #### LIPR, FT3, INSU, T4, FE, GLYHGB #### [place] [address] [employer] Functional Analyst: Casa Medrano MD Platelets (Bld) [#/Vol] 297 10*3/uL Normal 138-453 [facility] Comment on above: Performed By: #### T SH, CDP #### [address] [place] [id number] [employer] Functional Analyst: Mauricio Irby MD #### LIPR, FT3, INSU, T4, FE, GLYHGB #### [address] [id number] [employer] Functional Analyst: Casa Medrano MD RBC (Bld) [#/Vol] 4.81 10*6/uL Normal 3.95-5.11 [facility] Comment on above: Performed By: #### T SH, CDP #### [address] [place] [id number] [employer] Functional Analyst: Mauricio Irby MD #### LIPR, FT3, INSU, T4, FE, GLYHGB #### [address] [id number] [employer] Functional Analyst: Casa Medrano MD WBC (Bld) [#/Vol] 11.0 10*3/uL Normal 3.5-11.3 [facility] Comment on above: Performed By: #### T SH, CDP #### [facility] [address] [place] [address] Dr. [place], [place] [id number] [employer] Functional Analyst: Mauricio Irby MD #### LIPR, FT3, INSU, T4, FE, GLYHGB #### [facility] [address] [place], [place] [id number] Crm Functional Analyst: Casa Medrano MD Hemoglobin A1Con 08-05-2023 Glucose [Mass/Vol] 100 mg/dL Normal [facility] Comment on above: Result Comment: The ADA and AACC recommend providing the estimated average glucose result to permit better patient understanding of their HBA1c result. Performed By: #### C JANIE RAMIREZ, CP #### [facility] [address] [place] [address] Dr. [place], [place] [id number] Crm Functional Analyst: Mauricio Irby MD HbA1c (Bld) [Mass fraction] 5.1 % Normal 4.0-6.0 [facility] Comment on above: Performed By: #### C JANIE RAMIREZ, CP #### [address] [place], [place] [phone] Crm Functional Analyst: Mauricio Irby MD Insulinon 08-05-2023 Insulin 19.2 mU/L Normal [facility] Comment on above: Performed By: #### T SH, CDP #### [address] [place], [place] [phone] Crm Functional Analyst: Mauricio Irby MD #### LIPR, FT3, INSU, T4, FE, GLYHGB #### [facility] [address] [place], [place] [id number] Crm Functional Analyst: Casa Medrano MD Reference Range Normal [facility] Comment on above: Result Comment: Fast in.6-24.9 30 min: 20-112 60 min: 29-88 90 min: 26-84 120 min: 22-79 Performed By: #### T SH, CDP #### [address] [place] [id number] ( Crm Functional Analyst: Mauricio Irby MD #### LIPR, FT3, INSU, T4, FE, GLYHGB #### [address] [id number] Crm Functional Analyst: Casa Medrano MD Ironon 08-05-2023 Iron [Mass/Vol] 68 ug/dL Normal 37-145 [facility] Comment on above: Performed By: #### C DP, LIP, CP #### [address] [place] [id number] Crm Functional Analyst: Mauricio Irby MD Lipid Profileon 08-05-2023 Cholesterol [Mass/Vol] 171 mg/dL Normal 0-199 [facility] Comment on above: Result Comment: Cholesterol Guidelines: <200 Desirable 200-240 Borderline >240 Undesirable Performed By: #### T SH, CDP #### [address] [place] [id number] Crm Functional Analyst: Mauricio Irby MD #### LIPR, FT3, INSU, T4, FE, GLYHGB #### [address] [address] Crm Functional Analyst: Casa Medrnao MD Cholesterol in HDL [Mass/Vol] 52 mg/dL Normal >40 [facility] Comment on above: Result Comment: HDL Guidelines: <40 Undesirable 40-59 Borderline >59 Desirable Performed By: #### T SH, CDP #### [address] [place] [id number] Crm Functional Analyst: Mauricio Irby MD #### LIPR, FT3, INSU, T4, FE, GLYHGB #### [address] [id number] Crm Functional Analyst: Casa Medrano MD Cholesterol in LDL [Mass/Vol] 100 mg/dL Normal 0-100 [facility] Comment on above: Result Comment: LDL Guidelines: <100 Desirable 100-129 Near to/above Desirable 130-159 Borderline >159 Undesirable Direct (measured) LDL and calculated LDL are not interchangeable tests. Performed By: #### T SH, CDP #### [facility] [address] [place] [address] Dr. [place] [id number] ( Crm Functional Analyst: Mauricio Irby MD #### LIPR, FT3, INSU, T4, FE, GLYHGB #### [place] [id number] Crm Functional Analyst: Casa Medrano MD Cholesterol in VLDL [Mass/Vol] 19 mg/dL Normal [facility] Comment on above: Performed By: #### T SH, CDP #### [address] [place] [phone] ( Crm Functional Analyst: Mauricio Irby MD #### LIPR, FT3, INSU, T4, FE, GLYHGB #### [facility] [employer] [address] [place], [place] [address] Crm Functional Analyst: Casa Medrano MD Cholesterol.total /Cholesterol in HDL [Mass ratio] 3.0 {ratio} Normal [facility] Comment on above: Performed By: #### T SH, CDP #### [address] [place] [phone] Crm Functional Analyst: Mauricio Irby MD #### LIPR, FT3, INSU, T4, FE, GLYHGB #### [facility] [employer] [address] [place], [place] 1110[address] Crm Functional Analyst: Casa Medrano MD Triglyceride [Mass/Vol] 93 mg/dL Normal <150 [facility] Comment on above: Result Comment: Triglyceride Guidelines: <150 Desirable 150-199 Borderline 200-499 High >499 Very high Based on AHA Guidelines for fasting triglyceride, November 2011. Performed By: #### T SH, CDP #### [address] [place] [address] Crm Functional Analyst: Mauricio Irby MD #### LIPR, FT3, INSU, T4, FE, GLYHGB #### [address] [phone] Crm Functional Analyst: Casa Medrano MD T3, Freeon 08-05-2023 Free T3 [Mass/Vol] 2.90 pg/mL Normal 2.00-4.40 [facility] Comment on above: Performed By: #### C DP, LIP, CP #### [address] [place] [address] Crm Functional Analyst: Mauricio Irby MD Thyroid Stim. Horm.on 2023 Thyroid Stim. Horm. 1.33 uIU/mL Normal 0.30-5.00 [facility] Comment on above: Performed By: #### T SH, CDP #### [address] [place] [address] Crm Functional Analyst: Mauricio Irby MD #### LIPR, FT3, INSU, T4, FE, GLYHGB #### [address] [phone] Crm Functional Analyst: Casa Medrano MD Thyroxine T4on 08-05-2023 T4 [Mass/Vol] 9.9 ug/dL Normal 4.5-11.7 [facility] Comment on above: Performed By: #### T SH, CDP #### [address] [place] [address] Crm Functional Analyst: Mauricio Irby MD #### LIPR, FT3, INSU, T4, FE, GLYHGB #### [place] [id number] [place] [address] Crm Functional Analyst: Casa Medrano MD Cult,Urineon 10-28-2022 Cult,Urine Specimen Description .CLEAN CATCH URINE Culture NO SIGNIFICANT GROWTH Report Status FINAL 10/28/2022 Normal [facility] Comment on above: Performed By: #### C DP, JANIE, CP #### [facility] [address] [place] [address] Crm Functional Analyst: Mauricio Irby MD CBC with Auto Differentialon 10-27-2022 Basophils (Bld) [#/Vol] 0.03 10*3/uL [facility] Basophils/100 WBC (Bld) 0 % 0 - 2 % [facility] Eosinophils (Bld) [#/Vol] 0.07 10*3/uL [facility] Eosinophils/100 WBC (Bld) 1 % 1 - 4 % [facility] Erythrocyte distribution width (RBC) [Ratio] 12.6 % 11.8 - 14.4 % [facility] Hematocrit (Bld) [Volume fraction] 43.7 % 36.3 - 47.1 % [facility] Hemoglobin (Bld) [Mass/Vol] 14.3 g/dL 11.9 - 15.1 g/dL [facility] Immature granulocytes (Bld) [#/Vol] 0.04 10*3/uL [facility] Immature granulocytes/100 WBC (Bld) 0 % 0 [facility] Interpretation and review of laboratory results Abnormal [facility] Lymphocytes/100 WBC (Bld) 27 % 24 - 43 % [facility] Lymphocytes/100 WBC (Bld) 2.50 % [facility] MCH (RBC) [Entitic mass] 31.2 pg 25.2 - 33.5 pg [facility] MCHC (RBC) [Mass/Vol] 32.7 g/dL 28.4 - 34.8 g/dL [facility] MCV (RBC) [Entitic vol] 95.4 fL 82.6 - 102.9 fL [facility] Monocytes/100 WBC (Bld) 5 % 3 - 12 % [facility] Monocytes/100 WBC (Bld) 0.44 % [facility] Neutrophils/100 WBC (Bld) 67 % High 36 - 65 % [facility] Nucleated RBC/100 WBC (Bld) [Ratio] 0.0 % 0.0 per 100 WBC [facility] Platelet mean volume (Bld) [Entitic vol] 8.9 fL 8.1 - 13.5 fL [facility] Platelets (Bld) [#/Vol] 264 10*3/uL [facility] RBC (Bld) [#/Vol] 4.58 10*6/uL 3.95 - 5.1 1 m/uL [facility] Segmented neutrophils/100 WBC (Bld) 6.32 % [facility] WBC other (Bld) [#/Vol] 9.4 [facility] CBC with Diffon 10-27-2022 Abs. Basophil 0.03 k/uL Normal 0.00-0.20 [facility] Comment on above: Performed By: #### C JANIE RAMIREZ, CP #### [facility] [address] [place] [address] [place] [address] Crm Functional Analyst: Mauricio Irby MD Abs.Imm.Granulocy te 0.04 k/uL Normal 0.00-0.30 [facility] Comment on above: Performed By: #### C JANIE RAMIREZ, CP #### [address] [place] [address] Crm Functional Analyst: Mauricio Irby MD Abs.Neutrophil (Seg) 6.32 k/uL Normal 1.50-8.10 [facility] Comment on above: Performed By: #### C JANIE RAMIREZ, CP #### [address] [place] [phone] Crm Functional Analyst: Mauricio Irby MD Basophils/100 WBC (Bld) 0 % Normal 0-2 [facility] Comment on above: Performed By: #### C JANIE RAMIREZ, CP #### [address] [place] [phone] Crm Functional Analyst: Mauricio Irby MD Eosinophils (Bld) [#/Vol] 0.07 10*3/uL Normal 0.00-0.44 [facility] Comment on above: Performed By: #### C DP LIP, CP #### [address] [place], [facility]83 Crm Functional Analyst: Mauricio Irby MD Eosinophils/100 WBC (Bld) 1 % Normal 1-4 [facility] Comment on above: Performed By: #### C DP LIP, CP #### [address] [place], [place] [address] Crm Functional Analyst: Mauricio Irby MD Erythrocyte distribution width (RBC) [Ratio] 12.6 % Normal 11.8-14.4 [facility] Comment on above: Performed By: #### C JAMES LIP, CP #### [address] [place], [facility]83 Crm Functional Analyst: Mauricio Irby MD Hematocrit (Bld) [Volume fraction] 43.7 % Normal 36.3-47.1 [facility] Comment on above: Performed By: #### C JANIE RAMIREZ, CP #### [address] [place], [facility] Crm Functional Analyst: Mauricio Irby MD Hemoglobin (Bld) [Mass/Vol] 14.3 g/dL Normal 11.9-15.1 [facility] Comment on above: Performed By: #### C DP LIP, CP #### [address] [place], [facility]83 Crm Functional Analyst: Mauricio Irby MD Immature granulocytes/100 WBC (Bld) 0 % Normal 0 [facility] Comment on above: Performed By: #### C DP LIP, CP #### [address] [place], [facility]83 Crm Functional Analyst: Mauricio Irby MD Lymphocytes (Bld) [#/Vol] 2.50 10*3/uL Normal 1.10-3.70 [facility] Comment on above: Performed By: #### C DP, LIP, CP #### [facility] [address] [place], [place] [address] Crm Functional Analyst: Mauricio Irby MD Lymphocytes/100 WBC (Bld) 27 % Normal 24-43 [facility] Comment on above: Performed By: #### C DP, LIP, CP #### [address] [place], [place] [address] Crm Functional Analyst: Mauricio Irby MD MCH (RBC) [Entitic mass] 31.2 pg Normal 25.2-33.5 [facility] Comment on above: Performed By: #### C DP LIP, CP #### [address] [place], [place] [address] Crm Functional Analyst: Mauricio Irby MD MCHC (RBC) [Mass/Vol] 32.7 g/dL Normal 28.4-34.8 [facility] Comment on above: Performed By: #### C DP LIP, CP #### [address] [place], [place] [address] Crm Functional Analyst: Mauricio Irby MD MCV (RBC) [Entitic vol] 95.4 fL Normal 82.6-102.9 [facility] Comment on above: Performed By: #### C DP LIP, CP #### [address] [place], [place] [address] Crm Functional Analyst: Mauricio Irby MD Monocytes (Bld) [#/Vol] 0.44 10*3/uL Normal 0.10-1.20 [facility] Comment on above: Performed By: #### C DP LIP, CP #### [facility] [address] [place], [facility]83 Crm Functional Analyst: Mauircio Irby MD Monocytes/100 WBC (Bld) 5 % Normal 3-12 [facility] Comment on above: Performed By: #### C DP, LIP, CP #### [facility] [address] [place], [place] [id number] Crm Functional Analyst: Mauricio Irby MD Neutrophil (Seg) 67 % High 36-65 [facility] Comment on above: Performed By: #### C DP, LIP, CP #### [facility] [address] [place], [place] [id number] Crm Functional Analyst: Mauricio Irby MD NRBC Automated 0.0 per 100 WBC Normal 0.0 [facility] Comment on above: Performed By: #### C DP LIP, CP #### [address] [place], [facility]83 Crm Functional Analyst: Mauricio Irby MD Platelet mean volume (Bld) [Entitic vol] 8.9 fL Normal 8.1-13.5 [facility] Comment on above: Performed By: #### C DP LIP, CP #### [address] [place], [place] [id number] Crm Functional Analyst: Mauricio Irby MD Platelets (Bld) [#/Vol] 264 10*3/uL Normal 138-453 [facility] Comment on above: Performed By: #### C DP LIP, CP #### [address] [place], [place] [id number] Crm Functional Analyst: Mauricio Irby MD RBC (Bld) [#/Vol] 4.58 10*6/uL Normal 3.95-5.11 [facility] Comment on above: Performed By: #### C DP LIP, CP #### [address] [place], [place] [phone] Crm Functional Analyst: Mauricio Irby MD WBC (Bld) [#/Vol] 9.4 10*3/uL Normal 3.5-11.3 [facility] Comment on above: Performed By: #### C DP, LIP, CP #### [facility] [address] [place] [address] Crm Functional Analyst: Mauricio Irby MD CT ABDOMEN PELVIS W [...] Ronni Vaughn MD 10/27/22 Final result Normal [facility] CT ABDOMEN PELVIS W IV CONTR AST Additional Contrast? Noneon 10-27-2022 No acute abnormality identified. [facility] RIS CONSOLIDATED EXAMINATION: CT OF THE ABDOMEN AND [...] findings do not require dedicated imaging follow-up. [facility] Ronni Villareal MD - 10/27/2022 EXAMINATION: CT OF THE [...] imaging follow-up. IMPRESSION: No acute abnormality identified. [facility] Radiology Study observation (narrative) [facility] CT ABDOMEN PELVIS W IV CONTR AST Additional Contrast? NoneOrdered By: Ronni Vaughn on 10-27-2022 [facility] Work Phone: Comp Metabolic Profon 2022 Albumin [Mass/Vol] 4.0 g/dL Normal 3.5-5.2 [facility] Comment on above: Performed By: #### C JAMES, JANIE, CP #### [facility] [address] [place] [address] Crm Functional Analyst: Mauricio Irby MD Albumin/Glob Ratio 1.1 Normal 1.0-2.5 [facility] Comment on above: Performed By: #### C DP, LIP, CP #### [facility] [address] [place], [place] [id number] Crm Functional Analyst: Mauricio Irby MD Alkaline Phos 82 U/L Normal 35-104 [facility] Comment on above: Performed By: #### C DP, LIP, CP #### [facility] [address] [place], [place] [phone] Crm Functional Analyst: Mauricio Irby MD ALT [Catalytic activity/Vol] 11 U/L Normal 5-33 [facility] Comment on above: Performed By: #### C DP LIP, CP #### [facility] [address] [place], [place] 2637183 Crm Functional Analyst: Mauricio Irby MD Anion gap [Moles/Vol] 8 mmol/L Low 9-17 [facility] Comment on above: Performed By: #### C JAMES LIP, CP #### [facility] [address] [place], [place] [phone] Crm Functional Analyst: Mauricio Irby MD AST [Catalytic activity/Vol] 12 U/L Normal <32 [facility] Comment on above: Performed By: #### C DP LIP, CP #### [facility] [address] [place], [place] 8174083 Crm Functional Analyst: Mauricio Irby MD Bilirubin [Mass/Vol] 0.2 mg/dL Low 0.3-1.2 [facility] Comment on above: Performed By: #### C DP LIP, CP #### [facility] [address] [place] [address] Crm Functional Analyst: Mauricio Irby MD BUN/CRE Ratio 11 Normal 9-20 [facility] Comment on above: Performed By: #### C DP, LIP, CP #### [facility] [address] [place], [place] [phone] Crm Functional Analyst: Mauricio Irby MD Calcium [Mass/Vol] 9.2 mg/dL Normal 8.6-10.4 [facility] Comment on above: Performed By: #### C DP LIP, CP #### [facility] [address] [place], [place] [id number] Crm Functional Analyst: Mauricio Irby MD Chloride [Moles/Vol] 102 mmol/L Normal 98-107 [facility] Comment on above: Performed By: #### C JAMES LIP, CP #### [facility] [address] [place], [place] [id number] Crm Functional Analyst: Mauricio Irby MD CO2 [Moles/Vol] 27 mmol/L Normal 20-31 [facility] Comment on above: Performed By: #### C JAMES LIP, CP #### [facility] [address] [place], [place] 4541683 Crm Functional Analyst: Mauricio Irby MD Creatinine [Mass/Vol] 0.7 mg/dL Normal 0.5-0.9 [facility] Comment on above: Performed By: #### C JAMES LIP, CP #### [facility] [address] [place] [id number] Crm Functional Analyst: Mauricio Irby MD GFR/1.73 sq M.predicted among non-blacks MDRD (S/P/Bld) [Vol rate/Area] mL/min/{1.73_m2} Normal >60 [facility] Comment on above: Result Comment: These [...] renal tubular secretion. Performed By: #### C DP, LIP, CP #### [facility] [address] [place], [place] 2410183 Crm Functional Analyst: Mauricio Irby MD Glucose [Mass/Vol] 134 mg/dL High 70-99 [facility] Comment on above: Performed By: #### C DP, LIP, CP #### [facility] [address] [place], [place] [phone] Crm Functional Analyst: Mauricio Irby MD Potassium [Moles/Vol] 4.1 mmol/L Normal 3.7-5.3 [facility] Comment on above: Performed By: #### C DP LIP, CP #### [facility] [address] [place], [place] [id number] Crm Functional Analyst: Mauricio Irby MD Protein [Mass/Vol] 7.7 g/dL Normal 6.4-8.3 [facility] Comment on above: Performed By: #### C DP, LIP, CP #### [facility] [address] [place], [place] 8456583 Crm Functional Analyst: Mauricio Irby MD Sodium [Moles/Vol] 137 mmol/L Normal 135-144 [facility] Comment on above: Performed By: #### C DP, LIP, CP #### [facility] [address] [place], [place] 6148983 Crm Functional Analyst: Mauricio Irby MD Urea nitrogen [Mass/Vol] 8 mg/dL Normal 6-20 [facility] Comment on above: Performed By: #### C DP, LIP, CP #### [facility] [address] [place], [place] 9803183 Crm Functional Analyst: Mauricio Irby MD Comprehensive Metabolic Pane [facility] 10-27-2022 Albumin [Mass/Vol] 4.0 g/dL 3.5 - 5.2 g/dL [facility] Albumin/Globulin [Mass ratio] 1.1 {ratio} 1.0 - 2.5 [facility] ALP [Catalytic activity/Vol] 82 U/L 35 - 104 U/L [facility] ALT [Catalytic activity/Vol] 11 U/L 5 - 33 U/L [facility] Anion gap [Moles/Vol] 8 mmol/L Low 9 - 17 mmol/L [facility] AST [Catalytic activity/Vol] 12 U/L NINF - 32 U/L [facility] Bilirubin [Mass/Vol] 0.2 mg/dL Low 0.3 - 1.2 mg/dL [facility] Calcium [Mass/Vol] 9.2 mg/dL 8.6 - 10.4 mg/dL [facility] Chloride [Moles/Vol] 102 mmol/L 98 - 107 mmol/L [facility] CO2 [Moles/Vol] 27 mmol/L 20 - 31 mmol/L [facility] Creatinine [Mass/Vol] 0.7 mg/dL 0.5 - 0.9 mg/dL [facility] GFR/1.73 sq M.predicted MDRD (S/P/Bld) [Vol rate/Area] - PIN[facility] Comment on above: These results are [...] 134 mg/dL High 70 - 99 mg/dL [facility] Potassium [Moles/Vol] 4.1 mmol/L 3.7 - 5.3 mmol/L [facility] Protein [Mass/Vol] 7.7 g/dL 6.4 - 8.3 g/dL [facility] Sodium [Moles/Vol] 137 mmol/L 135 - 144 mmol/L [facility] Urea nitrogen [Mass/Vol] 8 mg/dL 6 - 20 mg/dL [facility] Urea nitrogen/Creatini ne [Mass ratio] 11 mg/mg 9 - 20 [facility] Lactic Acidon 09-18-2023 Lactate (BldV) [Moles/Vol] 1.6 mmol/L 0.5 - 2.2 mmol/L [facility] Lactate [Moles/Vol] 1.6 mmol/L Normal 0.5-2.2 [facility] Comment on above: Performed By: #### C JAMES LIP, CP #### [facility] [address] [place] [address] Crm Functional Analyst: Mauricio Irby MD Lipaseon 10-27-2022 Lipase [Catalytic activity/Vol] 67 U/L High 13 - 60 U/L [facility] Lipase [Catalytic activity/Vol] 67 U/L High 13-60 [facility] Comment on above: Performed By: #### C JANIE RAMIREZ, CP #### [facility] [address] [place] [address] Crm Functional Analyst: Mauricio Irby MD No Panel Informationon 10-27 Interpretation and review of laboratory results Abnormal [facility] Urinalysis w/ Microon 2022 Bacteria 1+ Abnormal NONE [facility] Comment on above: Performed By: #### U AMIC #### [facility] [address] [place], [place] [phone] Crm Functional Analyst: Mauricio Irby MD Bilirubin, SemiQt,Ur Negative Normal NEG [facility] Comment on above: Performed By: #### U AMIC #### [facility] [address] [place] [address] Crm Functional Analyst: Mauricio Irby MD Blood, Urine Negative Normal NEG [facility] Comment on above: Performed By: #### U AMIC #### [facility] [address] [place] [address] Crm Functional Analyst: Mauricio Irby MD Clarity (U) Clear Normal CLEAR [facility] Comment on above: Performed By: #### U AMIC #### [facility] [address] [place], [place] [phone] Crm Functional Analyst: Mauricio Irby MD Color (U) Yellow Normal YEL [facility] Comment on above: Performed By: #### U AMIC #### [facility] [address] [place] [address] Dr. [place], [place] [id number] Crm Functional Analyst: Mauricio Irby MD Epithelial cells LM Ql (Urine sed) 10 TO 20 Normal 0-25 [facility] Comment on above: Performed By: #### U AMIC #### [facility] [address] [place] [address] Dr. [place], [place] [id number] Crm Functional Analyst: Mauricio Irby MD Glucose Ql (U) Negative Normal NEG [facility] Comment on above: Performed By: #### U AMIC #### [facility] [address] [place] [address] Dr. [place], [place] [id number] Crm Functional Analyst: Mauricio Irby MD Ketones Ql (U) Negative Normal NEG [facility] Comment on above: Performed By: #### U AMIC #### [facility] [address] [place] [address] Dr. [place], [place] [phone] Crm Functional Analyst: Mauricio Irby MD Leukocyte esterase Test strip Ql (U) Negative Normal NEG [facility] Comment on above: Performed By: #### U AMIC #### [facility] [address] [place] [address] Dr. [place], [place] [phone] Crm Functional Analyst: Mauricio Irby MD Nitrite,Ur Negative Normal NEG [facility] Comment on above: Performed By: #### U AMIC #### [facility] [address] [place] [address] Dr. [place], [place] [phone] Crm Functional Analyst: Mauricio Irby MD PH,Ur 6.0 Normal 5.0-9.0 [facility] Comment on above: Performed By: #### U AMIC #### [facility] [address] [place] [address] Dr. [place], [place] [phone] Crm Functional Analyst: Mauricio Irby MD Protein Ql (U) Negative Normal NEG [facility] Comment on above: Performed By: #### U AMIC #### [facility] [address] [place] [address] Dr[address] [place], [place] [id number] Crm Functional Analyst: Mauricio Irby MD Spec. [place],Ur 1.010 Normal 1.010-1.020 [facility] Comment on above: Performed By: #### U AMIC #### [facility] [address] [place] [address] [place] [address] Crm Functional Analyst: Mauricio Irby MD Urine RBC's 0 TO 2 Normal 0-2 [facility] Comment on above: Performed By: #### U AMIC #### [address] [place], [place] [phone] Crm Functional Analyst: Mauricio Irby MD Urine WBC's 0 TO 2 Normal 0-5 [facility] Comment on above: Performed By: #### U AMIC #### [facility] [address] [place] [address] Dr. [place], [place] [phone] Crm Functional Analyst: Mauricio Irby MD Urobilinogen,Ur Normal Normal 0.0-1.0 [facility] Comment on above: Performed By: #### U AMIC #### [facility] [address] [place] [address] Dr. [place], [facility] Crm Functional Analyst: Mauricio Irby MD Urinalysis with Microscopico n 10-27-2022 Bacteria LM Ql (Urine sed) 1+ Abnormal None [facility] Bilirubin Ql (U) Negative NEGATIVE [facility] [facility] Clarity (U) Clear Clear [facility] Color (U) Yellow Yellow [facility] Epithelial cells LM.HPF (Urine sed) [#/Area] 10 TO 20 [facility] Glucose Test strip (U) [Mass/Vol] Negative NEGATIVE mg/dL [facility] Hemoglobin Auto test strip Ql (U) Negative NEGATIVE [facility] Interpretation and review of laboratory results Abnormal [facility] Ketones (U) [Mass/Vol] Negative NEGATIVE mg/dL [facility] Leukocyte esterase Test strip Ql (U) Negative NEGATIVE [facility] Nitrite Ql (U) Negative NEGATIVE [facility] pH (U) 6.0 [pH] 5.0 - 9.0 [facility] Protein (U) [Mass/Vol] Negative NEGATIVE mg/dL [facility] RBC LM.HPF (Urine sed) [#/Area] 0 TO 2 [facility] Specific gravity (U) [Rel density] 1.010 1.010 - 1.020 [facility] Urobilinogen Qn (U) Normal 0.0 - 1.0 EU/dL [facility] WBC LM.HPF (Urine sed) [#/Area] 0 TO 2 [facility] XR ABD FLAT UP_PA Joyce [...] MAURICIO LYONS Date: 2022-03-25 08:01 Normal [facility] AMYLASEon 03-24-2022 Amylase [Catalytic activity/Vol] 36 U/L Normal 25-115 [facility] Comment on above: Performed By: #### C MP, DARION, LIPA #### [facility] [address] [address] [address] Melecio Chadwick CBC AUTO DIFFon 03-24-2022 BASO # 0.0 103/ul Normal 0.0-0.1 [facility] Comment on above: Performed By: #### C BC #### [facility] [address] [address] [address] Melecio Chadwick Basophils/100 WBC (Bld) 0.2 % Normal 0.2-2.0 [facility] Comment on above: Performed By: #### C BC #### [facility] [address] [place] [address] Dr. Melecio Chadwick EO # 0.1 103/ul Normal 0.0-0.7 [facility] Comment on above: Performed By: #### C BC #### [facility] [address] [place] [address] Dr. Melecio Chadwick Eosinophils/100 WBC (Bld) 1.1 % Normal 0.9-7.0 [facility] Comment on above: Performed By: #### C BC #### [facility] [address] [place] [address] Dr. Melecio Chadwick Erythrocyte distribution width (RBC) [Ratio] 12.3 % Normal 11.0-15.0 [facility] Comment on above: Performed By: #### C BC #### [facility] [address] [place] [address] Dr. Melecio Chadwick Hematocrit (Bld) [Volume fraction] 42.5 % Normal 36.0-48.0 [facility] Comment on above: Performed By: #### C BC #### [facility] [address] [place] [address] Dr. Melecio Chadwick Hemoglobin (Bld) [Mass/Vol] 14.3 g/dL Normal 12.0-16.0 [facility] Comment on above: Performed By: #### C BC #### [facility] [address] [place] [address] Dr. Melecio Chadwick IG # 0.03 10e3/ul Normal 0.00-0.03 [facility] Comment on above: Performed By: #### C BC #### [facility] [address] [place] [address] Dr. Melecio Chadwick IG % 0.3 % Normal 0.0-0.5 [facility] Comment on above: Performed By: #### C BC #### [facility] [address] [place] [address] Dr. Melecio Chadwick LYMPH # 3.1 103/ul Normal 1.2-3.8 [facility] Comment on above: Performed By: #### C BC #### [facility] [address] [place] [address] Dr. Melecio Chadwick Lymphocytes/100 WBC (Bld) 29.8 % Normal 20.5-60.0 [facility] Comment on above: Performed By: #### C BC #### [facility] [address] [place] [address] Dr. Melecio Chadwick MANUAL DIFF REQ NO Normal [facility] Comment on above: Performed By: #### C BC #### [facility] [address] [place] [address] Dr. Melecio Chadwick MCH (RBC) [Entitic mass] 31.0 pg Normal 26.7-34.0 [facility] Comment on above: Performed By: #### C BC #### [facility] [address] [place] [address] Dr. Melecio Chadwick MCHC (RBC) [Mass/Vol] 33.6 g/dL Normal 29.9-35.2 [facility] Comment on above: Performed By: #### C BC #### [facility] [address] [place] [address] Dr. Melecio Chadwick MCV (RBC) [Entitic vol] 92.2 fL Normal 81.0-99.0 [facility] Comment on above: Performed By: #### C BC #### [facility] [address] [place] [address] Dr. Melecio Chadwick MONO # 0.6 103/ul Normal 0.3-0.8 [facility] Comment on above: Performed By: #### C BC #### [facility] [address] [place] [address] Dr. Melecio Chadwick Monocytes/100 WBC (Bld) 5.8 % Normal 1.7-12.0 [facility] Comment on above: Performed By: #### C BC #### [facility] [address] [place] [address] Dr. Melecio Chadwick NEUT # 6.5 103/ul Normal 1.4-6.5 [facility] Comment on above: Performed By: #### C BC #### [facility] [address] [address] [address] Melecio Chadwick Neutrophils/100 WBC (Bld) 62.8 % Normal 43.0-75.0 [facility] Comment on above: Performed By: #### C BC #### [facility] [address] [place] [address] Dr. Melecio Chadwick Platelet mean volume (Bld) [Entitic vol] 9.0 fL Critically low 9.5-13.5 [facility] Comment on above: Performed By: #### C BC #### [facility] [address] [place] [address] Dr. Melecio Chadwick PLT 268 103/ul Normal 150-450 [facility] Comment on above: Performed By: #### C BC #### [facility] [address] [place] [address] Dr. Melecio Chadwick RBC 4.61 106/ul Normal 4.20-5.40 [facility] Comment on above: Performed By: #### C BC #### [facility] [address] [place] [address] Dr. Melecio Chadwick WBC 10.4 103/ul Normal 4.0-11.0 [facility] Comment on above: Performed By: #### C BC #### [facility] [address] [place] [address] Dr. Melecio Chadwick LIPASEon 03-24-2022 Lipase [Catalytic activity/Vol] 114.0 U/L Normal 73.0-393.0 [facility] Comment on above: Performed By: #### C DOREEN DARION, LIPA #### [facility] [address] [place] [address] Dr. Melecio Chadwick PROF 14(COMP METB)on 023 Albumin [Mass/Vol] 3.5 g/dL Normal 3.4-5.0 [facility] Comment on above: Performed By: #### C MP DARION, LIPA #### [facility] [address] [place] [address] Dr. Melecio Chadwick Albumin/Globulin [Mass ratio] 0.8 {ratio} Normal [facility] Comment on above: Performed By: #### C MP, DARION, LIPA #### [facility] [address] [place] [address] Dr. Melecio Chadwick ALP [Catalytic activity/Vol] 85 U/L Normal 46-116 [facility] Comment on above: Performed By: #### C MP, DARION, LIPA #### [facility] [address] [place] [address] Dr. Melecio Chadwick ALT [Catalytic activity/Vol] 21 U/L Normal 14-59 [facility] Comment on above: Performed By: #### C MP DARION, LIPA #### [facility] [address] [place] [address] Dr. Melecio Chadwick Anion gap [Moles/Vol] 11.6 mmol/L Normal [facility] Comment on above: Performed By: #### C MP DARION, LIPA #### [facility] [address] [place] [address] Dr. Melecio Chadwick AST [Catalytic activity/Vol] 15 U/L Normal 15-37 [facility] Comment on above: Performed By: #### C MP DARION, LIPA #### [facility] [address] [place] [address] Dr. Melecio Chadwick Bilirubin [Mass/Vol] 0.3 mg/dL Normal 0.2-1.0 [facility] Comment on above: Performed By: #### C MP, DARION, LIPA #### [facility] [address] [place] [address] Dr. Melecio Chadwick Calcium [Mass/Vol] 8.8 mg/dL Normal 8.5-10.1 [facility] Comment on above: Performed By: #### C MP, DARION, LIPA #### [facility] [address] [place] [address] Dr. Melecio Chadwick Chloride [Moles/Vol] 102 mmol/L Normal 98-107 [facility] Comment on above: Performed By: #### C MP, DARION, LIPA #### [facility] [address] [place] [address] Dr. Melecio Chadwick CO2 [Moles/Vol] 28.5 mmol/L Normal 21.0-32.0 [facility] Comment on above: Performed By: #### C DARION LOGAN LIPA #### [facility] [address] [address] [address] Melecio Chadwick Creatinine [Mass/Vol] 0.76 mg/dL Normal 0.55-1.02 [facility] Comment on above: Performed By: #### C DARION LOGAN, LIPA #### [facility] [address] [address] [address] Melecio Chadwick EGFR-AF BURMESE >60 Normal >=60 [facility] Comment on above: Performed By: #### C DARION LOGAN LIPA #### [facility] [address] [address] [address] Melecio Chadwick EGFR-NON AF BURMESE >60 Normal >=60 [facility] Comment on above: Performed By: #### C DARION LOGAN LIPA #### [facility] [address] [address] [address] Melecio Chadwick Globulin (S) [Mass/Vol] 4.2 g/dL Normal [facility] Comment on above: Performed By: #### C DARION LOGAN, LIPA #### [facility] [address] [address] [address] Melecio Chadwick Glucose [Mass/Vol] 97 mg/dL Normal 74-106 [facility] Comment on above: Performed By: #### C DARION LOGAN LIPA #### [facility] [address] [address] [address] Melecio Chadwick Potassium [Moles/Vol] 4.1 mmol/L Normal 3.5-5.1 [facility] Comment on above: Performed By: #### C DARION LOGAN, LIPA #### [facility] [address] [address] [address] Melecio Chadwick Protein [Mass/Vol] 7.7 g/dL Normal 6.4-8.2 [facility] Comment on above: Performed By: #### C MP, DARION, LIPA #### [facility] [address] [place] [address] Dr. Melecio Chadwick Sodium [Moles/Vol] 138 mmol/L Normal 136-145 [facility] Comment on above: Performed By: #### C MP, DARION, LIPA #### [facility] [address] [place] [address] Dr. Melecio Chadwick Urea nitrogen [Mass/Vol] 9.0 mg/dL Normal 7.0-18.0 [facility] Comment on above: Performed By: #### C MP, DARION, LIPA #### [facility] [address] [place] [address] Dr. Melecio Chadwick Urea nitrogen/Creatini ne [Mass ratio] 11.8 mg/mg Normal [facility] Comment on above: Performed By: #### C MP, DARION, LIPA #### [facility] [address] [place] [address] Dr. Melecio Chadwick AMYLASEon 03-19-2022 Amylase [Catalytic activity/Vol] 44 U/L Normal 25-115 [facility] Comment on above: Performed By: #### A MY, CMP, LIPA #### [facility] [address] [place] [address] Dr. Melecio Chadwick CBC AUTO DIFFon 03-19-2022 BASO # 0.0 103/ul Normal 0.0-0.1 [facility] Comment on above: Performed By: #### C BC #### [facility] [address] [place] [address] Dr. Melecio Chadwick Basophils/100 WBC (Bld) 0.2 % Normal 0.2-2.0 [facility] Comment on above: Performed By: #### C BC #### [facility] [address] [place] [address] Dr. Melecio Chadwick EO # 0.1 103/ul Normal 0.0-0.7 [facility] Comment on above: Performed By: #### C BC #### [facility] [address] [place] [address] Dr. Melecio Chadwick Eosinophils/100 WBC (Bld) 1.5 % Normal 0.9-7.0 [facility] Comment on above: Performed By: #### C BC #### [facility] [address] [place] [address] Dr. Melecio Chadwick Erythrocyte distribution width (RBC) [Ratio] 12.4 % Normal 11.0-15.0 [facility] Comment on above: Performed By: #### C BC #### [facility] [address] [place] [address] Dr. Melecio Chadwick Hematocrit (Bld) [Volume fraction] 41.8 % Normal 36.0-48.0 [facility] Comment on above: Performed By: #### C BC #### [facility] [address] [place] [address] Dr. Melecio Chadwick Hemoglobin (Bld) [Mass/Vol] 13.2 g/dL Normal 12.0-16.0 [facility] Comment on above: Performed By: #### C BC #### [facility] [address] [place] [address] Dr. Melecio Chadwick IG # 0.02 10e3/ul Normal 0.00-0.03 [facility] Comment on above: Performed By: #### C BC #### [facility] [address] [place] [address] Dr. Melecio Chadwick IG % 0.2 % Normal 0.0-0.5 [facility] Comment on above: Performed By: #### C BC #### [facility] [address] [place] [address] Dr. Melecio Chadwick LYMPH # 3.3 103/ul Normal 1.2-3.8 [facility] Comment on above: Performed By: #### C BC #### [facility] [address] [place] [address] Dr. Melecio Chadwick Lymphocytes/100 WBC (Bld) 38.0 % Normal 20.5-60.0 [facility] Comment on above: Performed By: #### C BC #### [facility] [address] [place] [address] Dr. Melecio Chadwick MANUAL DIFF REQ NO Normal [facility] Comment on above: Performed By: #### C BC #### [facility] [address] [place] [address] Dr. Melecio Chadwick MCH (RBC) [Entitic mass] 30.9 pg Normal 26.7-34.0 [facility] Comment on above: Performed By: #### C BC #### [facility] [address] [place] [address] Dr. Melecio Chadwick MCHC (RBC) [Mass/Vol] 31.6 g/dL Normal 29.9-35.2 [facility] Comment on above: Performed By: #### C BC #### [facility] [address] [place] [address] Dr. Melecio Chadwick MCV (RBC) [Entitic vol] 97.9 fL Normal 81.0-99.0 [facility] Comment on above: Performed By: #### C BC #### [facility] [address] [place] [address] Dr. Melecio Chadwick MONO # 0.4 103/ul Normal 0.3-0.8 [facility] Comment on above: Performed By: #### C BC #### [facility] [address] [place] [address] Dr. Melecio Chadwick Monocytes/100 WBC (Bld) 4.6 % Normal 1.7-12.0 [facility] Comment on above: Performed By: #### C BC #### [facility] [address] [place] [address] Dr. Melecio Chadwick NEUT # 4.8 103/ul Normal 1.4-6.5 [facility] Comment on above: Performed By: #### C BC #### [facility] [address] [place] [address] Dr. Melecio Chadwick Neutrophils/100 WBC (Bld) 55.5 % Normal 43.0-75.0 [facility] Comment on above: Performed By: #### C BC #### [facility] [address] [place] [address] Dr. Melecio Chadwick Platelet mean volume (Bld) [Entitic vol] 9.7 fL Normal 9.5-13.5 [facility] Comment on above: Performed By: #### C BC #### [facility] [address] [place] [address] Dr. Melecio Chadwick PLT 258 103/ul Normal 150-450 [facility] Comment on above: Performed By: #### C BC #### [facility] [address] [place] [address] Dr. Melecio Chadwick RBC 4.27 106/ul Normal 4.20-5.40 [facility] Comment on above: Performed By: #### C BC #### [facility] [address] [place] [address] Dr. Melecio Chadwick WBC 8.7 103/ul Normal 4.0-11.0 [facility] Comment on above: Performed By: #### C BC #### [facility] [address] [place] [address] Dr. Melecio Chadwick LIPASEon 03-19-2022 Lipase [Catalytic activity/Vol] 119.0 U/L Normal 73.0-393.0 [facility] Comment on above: Performed By: #### A MY, CMP, LIPA #### [facility] [address] [place] [address] Dr. Melecio Chadwick PROF 14(COMP METB)on 023 Albumin [Mass/Vol] 3.2 g/dL Critically low 3.4-5.0 [facility] Comment on above: Performed By: #### A MY, CMP, LIPA #### [facility] [address] [place] [address] Dr. Melecio Chadwick Albumin/Globulin [Mass ratio] 0.9 {ratio} Normal [facility] Comment on above: Performed By: #### A MY, CMP, LIPA #### [facility] [address] [place] [address] Dr. Melecio Chadwick ALP [Catalytic activity/Vol] 76 U/L Normal 46-116 [facility] Comment on above: Performed By: #### A MY, CMP, LIPA #### [facility] [address] [place] [address] Dr. Melecio Chadwick ALT [Catalytic activity/Vol] 18 U/L Normal 14-59 [facility] Comment on above: Performed By: #### A MY, CMP, LIPA #### [facility] [address] [address] [address] Melecio Chadwick Anion gap [Moles/Vol] 11.6 mmol/L Normal [facility] Comment on above: Performed By: #### A MY, CMP, LIPA #### [facility] [address] [address] [address] Melecio Chadwick AST [Catalytic activity/Vol] 14 U/L Critically low 15-37 [facility] Comment on above: Performed By: #### A MY, CMP, LIPA #### [facility] [address] [place] [address] Dr. Melecio Chadwick Bilirubin [Mass/Vol] 0.2 mg/dL Normal 0.2-1.0 [facility] Comment on above: Performed By: #### A MY, CMP, LIPA #### [facility] [address] [place] [address] Dr. Melecio Chadwick Calcium [Mass/Vol] 7.9 mg/dL Critically low 8.5-10.1 [facility] Comment on above: Performed By: #### A MY, CMP, LIPA #### [facility] [address] [place] [address] Dr. Melecio Chadwick Chloride [Moles/Vol] 105 mmol/L Normal 98-107 [facility] Comment on above: Performed By: #### A MY, CMP, LIPA #### [facility] [address] [place] [address] Dr. Melecio Chadwick CO2 [Moles/Vol] 25.8 mmol/L Normal 21.0-32.0 [facility] Comment on above: Performed By: #### A MY, CMP, LIPA #### [facility] [address] [place] [address] Dr. Melecio Chadwick Creatinine [Mass/Vol] 0.67 mg/dL Normal 0.55-1.02 [facility] Comment on above: Performed By: #### A MY, CMP, LIPA #### [facility] [address] [address] [address] Melecio Chadwick EGFR-AF BURMESE >60 Normal >=60 [facility] Comment on above: Performed By: #### A MY, CMP, LIPA #### [facility] [address] [address] [address] Melecio Chadwick EGFR-NON AF BURMESE >60 Normal >=60 [facility] Comment on above: Performed By: #### A MY, CMP, LIPA #### [facility] [address] [address] [address] Melecio Chadwick Globulin (S) [Mass/Vol] 3.6 g/dL Normal [facility] Comment on above: Performed By: #### A MY, CMP, LIPA #### [facility] [address] [place] [address] Dr. Melecio Chadwick Glucose [Mass/Vol] 95 mg/dL Normal 74-106 [facility] Comment on above: Performed By: #### A MY, CMP, LIPA #### [facility] [address] [address] [address] Melecio Chadwick Potassium [Moles/Vol] 3.4 mmol/L Critically low 3.5-5.1 [facility] Comment on above: Performed By: #### A MY, CMP, LIPA #### [facility] [address] [address] [address] Melecio Chadwick Protein [Mass/Vol] 6.8 g/dL Normal 6.4-8.2 [facility] Comment on above: Performed By: #### A MY, CMP, LIPA #### [facility] [address] [address] [address] Melecio Chadwick Sodium [Moles/Vol] 139 mmol/L Normal 136-145 [facility] Comment on above: Performed By: #### A MY, CMP, LIPA #### [facility] [address] [address] [address] Melecio Chadwick Urea nitrogen [Mass/Vol] 6.0 mg/dL Critically low 7.0-18.0 [facility] Comment on above: Performed By: #### A MY, CMP, LIPA #### [facility] [address] [address] [address] Melecio Chadwick Urea nitrogen/Creatini ne [Mass ratio] 9.0 mg/mg Normal [facility] Comment on above: Performed By: #### A MY, CMP, LIPA #### [facility] [id number] Melecio Chadwick Intraoperative Noteon 2017 Intraoperative Note [id number][facility] 2017 Intraoperative Note [id number]#[address] History and Physicalon 01-23 History and Physical [id number]#[address] [place] [address] Provider Orderson 01-23-2017 Protein [id number]#[address] [place] [address] Coding Summaryon 12-08-2016 Coding Summary CODING DATE: 017 [facility] STATUS: Home PAYOR: [employer] Insurance APC DESCRIPTION 5113 Level 3 Musculoskeletal Procedures ADMIT DX: REASON FOR VISIT DX: S83.242A Other tear of medial meniscus, current injury, left knee, initial encounter FINAL DX: PRINCIPAL: M22.42 Chondromalacia patellae, left knee SECONDARY: M94.9 Disorder of cartilage, unspecified PYMT PROC APC STAT DESCRIPTION DOCTOR NAME DATE 45946 5113 J1 Arthroscopy, knee, STEPANIC, ARIES 12/05/2016 surgical; debridement/shaving of articular cartilage (chondroplasty) [...] Tamanna Ambrocio Date Saved: 12/08/2016 03:[address] [facility] Consent Formson 12-08-2016 Consent Forms [id number]#1.00[facility] Discharge Instructionson Discharge Instructions [id number]#1.00[facility] Intraoperative Noteon 2016 Intraoperative Note [id number][facility] MAGR PACU Record MAGR PACU Record Sorin oreilly Primary Physician: ARIES HARO Finalized Date/Time: 12/08/16 10:49:55 Pt. Name: TAMY WALLS/Sex: 1980 FEMALE Med Rec #: [id number] Physician: ARIES HARO Financial #: [id number] Pt. Type: D Room/Bed: / Admit/Disch: 12/05/16 [...] Signed By: Sana Jarvis RN 12/08/16 10:49 [facility] Pre-Op Record Summary Primary Physician: ARIES HARO Finalized Date/Time: 12/08/16 10:20:04 Pt. Name: TAMY WALLS/Sex: 1980 FEMALE Med Rec #: [id number] Physician: ARIES HARO Financial #: [id number] Pt. Type: D Room/Bed: / Admit/Disch: 12/05/16 [...] Signed By: Marium Ledbetter RN 12/08/16 10:[address] [facility] Medication Managementon 11-11 Medication Management [id number]#1.00OTGTIFF [facility] Telemetry Stripson 7 Telemetry Strips [id number]#1.00OTGTIFF [facility] Anesthesia Noteon 12-05-2016 Anesthesia Note Patient: RUFUS WALLS : 36 years Sex: FEMALE : [birth year]Associated Diagnoses: NoneAuthor: Bunny Briggs MDPostoperative InformationPost Operative Note: Operative Day.Anesthetic utilized: General.Health StatusAllergies:Allergic Reactions (All)Severity Not DocumentedDilaudid- Angio-oedema.Percocet 5/325- Nausea & vomiting.Problem list (past medical history):All ProblemsAnxiety / SNOMED CT [id number] / ConfirmedPhysical ExaminationVS/MeasurementsV ital Signs (last 24 hrs) Last ChartedHeart Rate Peripheral H102 bpm (DEC 05:47)Resp Rate H 28 br/min (DEC 05:)SBP 133 mmHg (DEC 05:)DBP 87 mmHg (DEC 05:)SpO2 99 % (DEC 05:)Review / ManagementCondition: Stable.AssessmentAnesthetic outcomeNo anesthetic complications noted.PlanTransfer/ Discharge: Patient can be discharged from PACU when criteria met.Condition good.[Electronically Signed on: 12/05/2016 12:07 EDT] Bunny Briggs MD[Verified on: 12/05/2016 12:07 EDT] Bunny Briggs MD [facility] Anesthesia Note Patient: RUFUS WALLS : [...] (past medical history):All ProblemsAnxiety / SNOMED CT 04250308 / ConfirmedHistoriesFamily History:No family history items have been selected or recorded.Procedure history:Hysterectomy (424073871) in 2014 at 33 Years.Comments:11/28/2016 10:Shayy Patel RNpartialAppendectomy ([id number]) in 2013 at 32 Years.Tubal ligation ([id number]) in 2004 at 24 Years.Cholecystectomy ([id number]) in 1999 at 19 Years.Ear care ([id number]).Comments:2016 10:06 - Shayy Sylvester RNtubes [id number] History Alcohol Assessment Use: Never. Tobacco Assessment former smoker quit 2 yrs ago Tobacco Use:. Substance Abuse Assessment Substance use: Never..Social & Psychosocial ZrnzjuSfymcib09/20/2017 Alcohol Use: NeverSubstance Abuse11/28/2016 Substance use: MmqriVvsncdd34/20/2017 Smoking tobacco use: former smoker quit 2 [...] on: 12/05/2016 10:25 EDT] Bunny Briggs MD [facility] MAGR Intraoperative Recordon 12-05-2016 MAGR Intraoperative Record MAGR Intra-Op Record Summary Primary Physician: ARIES HARO Finalized Date/Time: 12/05/16 11:52:54 Pt. Name: TAMY WALLSO.B./Sex: 1980 FEMALE Med Rec #: [id number] Physician: ARIES HARO Financial #: [id number] Pt. Type: D Room/Bed: / Admit/Disch: 12/05/16 [...] Role Performed Surgeon - Primary Anesthesiologist of Mortgage Counselor Record Time In 12/05/16 10:37:00 12/05/16 10:37:00 12/05/16 10:37:00 Time Out 12/05/16 11:30:00 12/05/16 11:48:00 12/05/16 11:48:00 Procedure Arthroscopy Knee(Left) Arthroscopy Knee(Left) Arthroscopy Knee(Left) Last Modified By: Leslie Tolentino RN, Stephanie RN Sauer, Stephanie RN 12/05/16 11:52:02 12/05/16 11:52:02 12/05/16 11:52:02 Entry 4 Entry 5 Entry 6 Case Attendee Ro Morrison RN, Leigh-Ann CST Nikolaus, Linda M Role Performed Mortgage Counselor Early Childhood Coordinator Scrub Personnel Time In 12/05/16 10:37:00 12/05/16 [...] Signed By: Leslie Tolentino RN 12/05/16 11:[facility] 12-05-2016 MAGR Postoperative Record MAGR Phase II Record Summary Primary Physician: ARIES HARO Finalized Date/Time: 12/05/16 14:50:11 Pt. Name: TAMY WALLS/Sex: 1980 FEMALE Med Rec #: [id number] Physician: ARIES HARO Financial #: [id number] Pt. Type: D Room/Bed: / Admit/Disch: 12/05/16 [...] Signed By: Sana Jarvis RN 12/05/16 14:[address] [facility] Progress Note - Nurseon 10-2 Progress Note - Nurse Spoke with pt and informed her to be here at 9am and NPO after MN, she verbalizes understanding.[Electronical ly Signed on: 12/04/2016 09:42 EDT] Shayy Sylvester RN[Verified on: 12/04/2016 09:42 EDT] Shayy Sylvester RN [facility] Vital Signs Date Time Vital Sign Value Performing Clinician Donnai diaz 12-11-2023 08:51-0400 Body height 172.2 cm Suresh PATEL Work Phone: [facility] 12-11-2023 08:51-0400 Body mass index (BMI) [Ratio] 38.54 kg/m2 Surehs PATEL Work Phone: [facility] 12-11-2023 08:51-0400 Body weight 114.31 kg Suresh PATEL Work Phone: [facility] 11-27-2023 08:42-0400 Body height 172.2 cm Jaylen Brown MD Work Phone: [facility] 11-27-2023 08:42-0400 Body mass index (BMI) [Ratio] 39.19 kg/m2 Jaylen Brown MD Work Phone: [facility] [employer] [facility] 11-27-2023 08:42-0400 Body weight 116.21 kg Jaylen Brown MD Work Phone: [facility] [employer] [facility] 11-27-2023 08:42-0400 Diastolic blood pressure 91 mm[Hg] Jaylen Brown MD Work Phone: [facility] [employer] [facility] 11-27-2023 08:42-0400 Heart rate 84 /min Jaylen Brown MD Work Phone: [facility] [employer] [facility] 11-27-2023 08:42-0400 Systolic blood pressure 142 mm[Hg] Jaylen Brown MD Work Phone: [facility] [employer] [facility] 10-27-2022 20:03-0400 Diastolic blood pressure 76 mm[Hg] Anna Callahan MD Work Phone: [employer] 10-27-2022 20:03-0400 SaO2% (BldA) [Mass fraction] 98 % Anna Callahan MD Work Phone: [facility] 10-27-2022 20:03-0400 Systolic blood pressure 126 mm[Hg] Anna Callahan MD Work Phone: [facility] 10-27-2022 15:17-0400 Body weight 104.33 kg Anna Callahan MD Work Phone: [facility] 10-27-2022 15:15-0400 Body temperature 97.9 [degF] Anna Callahan MD Work Phone: [facility] 10-27-2022 15:15-0400 Heart rate 100 /min Anna Callahan MD Work Phone: [facility] 10-27-2022 15:15-0400 Respiratory rate 18 /min Anna Callahan MD Work Phone: [employer] [facility] Encounters Encounter Date Encounter Type Care Provider Facility Start: 12-11-2023 End: 12-11-2023 Telemedicine consultation with patient Suresh PATEL Work Phone: [facility] Comment on above: Morbid obesity (CMS- HCC) (Primary Dx); Pre-bariatric surgery nutrition evaluation; Obesity, Class II, BMI 35-39.9 Start: 12-11-2023 End: 12-11-2023 ambulatory SURESHGrabiel WILDSALAZAR [facility] Start: 12-02-2023 End: 12-02-2023 ambulatory [facility] Start: 11-27-2023 End: 11-27-2023 Office outpatient new 45 minutes Jaylen Brown MD Work Phone: [facility] General Surgery Comment on above: Obesity, Class II, B MD 35-39.9 (Primary Dx); Gastroesophageal reflux disease, unspecified whether esophagitis present Start: 11-27-2023 End: 11-27-2023 ambulatory [facility] Start: 10-27-2022 End: 10-27-2022 Emergency department patient visit Anna Callahan MD Work Phone: [facility] Comment on above: Left flank pain (Berenice denilson Dx) Start: 04-21-2022 End: 04-22-[address] FRANCIA ROWELL . Facility:[facility] Start: 03-24-2022 End: 03-25-[address] FRANCIA ROWELL . Facility:[facility] Start: 03-19-2022 End: 03-19-[address] FRANCIA ROWELL . Facility:[facility] Start: 12-05-2016 End: 12-05-2016 Patient encounter [facility] Facility:[facility] Start: 11-29-2016 End: 11-29-2016 Patient encounter [facility] Facility:[facility] Procedures Date Procedure Procedure Detail Performing [...] Treatment Date Care Activity Detail Author Start: 12-10-2024 Adult BMI Follow Up Plan Adult BMI Follow Up Plan [facility] Start: 12-10-2024 Adult BMI Screening Adult BMI Screen ing [facility] Start: 11-26-2024 Adult BMI Screening Adult BMI Screen ing [facility] Start: 05-08-2024 DTaP,Tdap and Td Vac cines (2 - Td or Tdap) DTaP,Tdap and Td Vaccines (2 - Td or Tdap) [facility] Start: 01-11-2024 End: 01-11-2024 Telemedicine consultation with patient 01/11/2024 12:00 PM EST Telemedicine [facility] [address] [place] [address] Suresh Salazar LD [address] [place], [place] [id number] [facility] Start: 12-11-2023 End: 12-11-2023 Telemedicine consultation with patient 12/11/2023 9:00 AM EDT Telemedicine [facility] [address] [place] [address] Suresh Salazar LD [address] [place], [place] [id number] [facility] Start: 11-27-2023 End: 11-26-2024 RF Gastrointestinal tract upper Views W air contrast PO and W barium contrast PO Fluoroscopy upper GI with esophagus Imaging Routine Obesity, Class II, BMI 35-39.9 Expected: 11/27/2023, Expires: 11/26/2024 [facility] Comment on above: Expected: 11/27/2023 , Expires: 11/26/2024 Start: 10-11-2023 COVID-19 Vaccine (4 - 2023-24 season) COVID-19 Vaccine ( season) [facility] Start: 10-11-2023 COVID-19 Vaccine ( season) COVID-19 Vaccine ( season) [facility] Start: 10-11-2023 Influenza vaccination Influenza Vacc ine [facility] Start: 10-06-2023 Tobacco Screening Tobacco Screening [facility] Start: 04-16-2023 Depression Screening Depression Scre ening [facility] Start: 09-09-2022 Influenza vaccination Flu vaccine (# 1) [facility] Start: 2021 Lipid panel Lipids [facility] Start: 05-01-2011 Screening for malign ant neoplasm of cervix [facility] Start: 2002 Screening for malign ant neoplasm of cervix Pap smear [facility] Start: 2000 DTaP/Tdap/Td vaccine (1 - Tdap) DTaP/Tdap/Td vaccine (1 - Tdap) [facility] Start: 05-01-1999 Adult BMI Follow Up Plan Adult BMI Follow Up Plan [facility] Start: 05-01-1999 Hepatitis C screening Hepatitis C sc reen [facility] Start: 1996 HIV screening HIV screen [facility] Start: 1993 Depression Screen Depression Screen [facility] Start: 1982 Varicella vaccine (1 of 2 - 2-dose childhood series) Varicella vaccine (1 of 2 - 2-dose childhood series) [facility] Start: 1981 COVID-19 Vaccine (#1) COVID-19 Vacci ne (#1) [facility] Start: 1981 Hepatitis B vaccine (1 of 3 - 3-dose series) Hepatitis B vaccine (1 of 3 - 3-dose series) [facility] End: 11-26-2024 CBC W Auto Differential panel - Blood CBC auto differential Lab Routine Obesity, Class II, BMI 35-39.9 1 Occurrences starting 11/27/2023 until 11/26/2024 [employer] Work Phone: Comment on above: 1 Occurrences starti ng 11/27/2023 until 11/26/2024 End: 10-27-2022 Culture, Urine [employer] Work Phone: Comment on above: One Time for 1 Occur rences starting 10/27/2022 until 10/27/2022 End: 11-26-2024 Cyanocobalamin vitamin b-12 Vitamin B12 Lab Routine Obesity, Class II, BMI 35-39.9 1 Occurrences starting 11/27/2023 until 11/26/2024 [employer] Comment on above: 1 Occurrences starti ng 11/27/2023 until 11/26/2024 End: 11-26-2024 Hemoglobin A1c/Hemoglobin.total in Blood Hemoglobin A1c Lab Routine Obesity, Class II, BMI 35-39.9 1 Occurrences starting 11/27/2023 until 11/26/2024 [employer] Comment on above: 1 Occurrences starti ng 11/27/2023 until 11/26/2024 End: 11-26-2024 Iron [Mass/volume] in Serum or Plasma Iron Lab Routine Obesity, Class II, BMI 35-39.9 1 Occurrences starting 11/27/2023 until 11/26/2024 [employer] Comment on above: 1 Occurrences starti ng 11/27/2023 until 11/26/2024 End: 11-26-2024 Liver panel Liver panel Lab Routine Obesity, Class II, BMI 35-39.9 1 Occurrences starting 11/27/2023 until 11/26/2024 [employer] Comment on above: 1 Occurrences starti ng 11/27/2023 until 11/26/2024 End: 11-26-2024 Parathyroid Hormone, intact Parathyroid Hormone, intact Lab Routine Obesity, Class II, BMI 35-39.9 1 Occurrences starting 11/27/2023 until 11/26/2024 [employer] Comment on above: 1 Occurrences starti ng 11/27/2023 until 11/26/2024 End: 11-26-2024 Thyrotropin [Units/volume] in Serum or Plasma TSH Lab Routine Obesity, Class II, BMI 35-39.9 1 Occurrences starting 11/27/2023 until 11/26/2024 [employer] Comment on above: 1 Occurrences starti ng 11/27/2023 until 11/26/2024 End: 11-26-2024 Vitamin D 25 hydroxy Vitamin D 25 hydroxy Lab Routine Obesity, Class II, BMI 35-39.9 1 Occurrences starting 11/27/2023 until 11/26/2024 [employer] Comment on above: 1 Occurrences starti ng 11/27/2023 until 11/26/2024 Immunizations Immunization Date Immunization Notes Care Provider Fa cili 12-11-2020 influenza virus vaccine, unspecified formulation Jaylen Brown MD Work Phone: [employer] Payers Date Payer Category Payer Managed Care Other (unspecified) [employer] [id number] 2023 Unknown [id number] 2016 Unknown [id number] 1980 Unknown [id number] [id number] .2.593 1980 Unknown [id number] 2..[id number] .2.593 1980 Unknown [id number] [id number] .2.593 1980 Unknown [id number] [id number] .2.173 1980 Unknown [id number] [id number] .2.1286 1980 Unknown [id number] [id number] .2.1286 1980 Unknown [id number] [id number] .2.1286 1980 Unknown [id number] [id number] .2.1286 1959 Unknown [id number] Social History Date Type Detail Facility Tobacco smoking stat [facility] Tobacco smoking consumption unknown [facility] Start: 1980 Sex Assigned At Not on file [facility] Start: 03-22-2020 End: 10-05-2022 Gender identity Not on file [facility] Start: 05-17-2021 Tobacco smoking stat [facility] Occasional tobacco smoker [facility] History of tobacco use Cigarette Smoker P [facility] Start: 03-22-2020 End: 05-17-2021 Cigarettes smoked current (pack per day) - Reported 0.5 [facility] Start: 05-17-2021 Tobacco use and exposure Smokeless tobacco non-user [facility] Start: 10-05-2022 Alcoholic beverage intake Current non-drinker of alcohol (finding) [facility] Adolescent depressio n screening assessment 0 [facility] Start: 09-14-2014 Sex Female (finding) [facility] Medical Equipment Procedure Code Equipment Code Equipment Origin al Text Equipment Identifier Dates Manderson Sut 4.75m m Swivelock Cls Eylt Vnt Pk 19.1mm Strl Disp Cls Use [id number] Ea=Bill Only - [id number] Start: 05-29-2021 History of Present illness Narrative 12-11-2023 AMANDA Kaur - 12/11/2023 9:00 AM EDT Note Date & Type Note Facility 12-11-2023 History of Presen t illness Narrative Bariatric Medical Nutrition Therapy Nutritional Assessment/Education Initial Nutrition Education Video Visit via Real-time Synchronous Audiovisual Provider Location: [facility] [address] [place] [phone] Patient Location: Patient's home Video Visit Consent Statement: I discussed risks, benefits, and alternatives of a real-time synchronous audiovisual consultation with the patient (and any accompanying persons) including the risks that the patient's personal health details and medical records will be discussed over real-time, synchronous, interactive video/audio/telecommunication technology, the visit will not be recorded without the express consent of both the provider and the patient, and that there are some limitations compared to gqtu-xr-ftun evaluations. The patient consented to the presence of additional virtual and/or in-person participants. We elected to proceed. Tamy Lo is a 43 y.o. female who presents for medical nutritional therapy evaluation and education for weight loss surgery. This patient is interested in the sleeve gastrectomy. Ht 172.2 cm (5' 7.8 ) Wt 114.3 kg (252 lb) BMI 38.54 kg/m Relevant medical history: Hypertension, acid reflux, and CVI. Barrier learning assessment: Yes Weight history: Highest adult weight was 256 pounds. Lowest adult weight was 192 pounds. Tamy Lo wants to weigh 180 pounds. There is a maternal and paternal family history for obesity. Previous diet and medication treatments for obesity include: Atkins, 21 day fix (60 pounds in 6 months), and Adipex. Despite these attempts at dieting and exercise, the patient has failed to maintain any sustained weight loss. 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 Work hours: Thursday 3:30 pm - 3:30 am and Thursday 6:00 am - 6:00 pm Smoking, chewing tobacco/dipping or smokeless tobacco products: Nicotine patch (2 days no cigarettes) Family/friend support for weight loss surgery: Twin sister who had gastric bypass and Primary cook in the house: Self Primary person who does the grocery shopping: Self Nutritional Assessment: Pt s view as his/her biggest problem/concern with eating: Getting enough meals in, in a day Food weakness or trigger foods: Chocolate milk and ice cream Is satiety recognized?: Yes; running nose Personal eating pace: Moderate, sometimes fast (15-20 minutes) Emotional eating: None Location of most meals: Living room at coffee table, every other week eating at the table with step son Diet Recall: Awake 7:30 am Breakfast 7:50 am Snack Lunch 12:00 pm Snack Dinner 4:00 pm Snack Muffin Or Venezuelan muffin with peanut butter Or Egg Skip Or Wrap (tomato basil) with lunch meat, lettuce, and tomato Or Salad with parmesan and chicken and small amount Caesar dressing Or Protein shake Meat (pork chops or chicken) with baked potato with butter and vegetable (green beans) Or Protein shake Ice cream (once a week) Or Protein shake if did not have meat with dinner Beverage Intake: Chocolate milk (half a gallon a day), coffee with cream, Monster (one a day), and water Alcohol Intake: None Weekend Meal Pattern: Same Dining Out Frequency: Twice in the past month Vitamin/Mineral/Herbal Supplements: One a day women's multivitamin Food Allergies/Intolerances: No known allergies Episcopal/Cultural Food Requests: None Activity Level: Formal Exercise: Gym every day (light from [employer], mostly walking), if not at the gym will walk one mile with dog General Activity Status: Moving throughout the day Nutrition Diagnosis: Obesity as evidenced by BMI. Body mass index is 38.54 kg/m . Nutrition Intervention: Initial nutrition education Discussed diet and behavioral changes needed to be successful with weight loss surgery. Patient agrees to the following goals: 1) Eat 4-5 meals per day. No night time snacking. 2) Avoid all sugars, sweets and desserts. Read food labels and avoid foods/beverages with > 5 grams sugar per serving. 3) Eat fewer fried foods, limit fats added to foods, and avoid high fat fast foods. Read food labels for foods < 3 grams fat per serving. 4) Eat protein-rich food at each meal followed by vegetables, then fruit, while limiting starches. 5) Take a multivitamin/mineral supplement daily. 6) Sip 64 ounces of liquids between meals. 7) Eliminate drinks with sugar, alcohol, caffeine and carbonation. 8) Eat meals very slowly, approximately 30 minutes per meal. Stop eating when feel full. 9) Take small bites. Chew foods well. 10) Avoid emotional eating / mindless eating. 11) Exercise 3 times per week. Written information on all discussed has been provided within the [facility] Bariatric Guide. My contact name and number provided if questions or concerns arise. Nutrition Monitoring: To follow up in 1 month to show progress towards goals. Start time: 0853 End time: 09 documented in this encounter [facility] [employer] [facility] Instructions 12-11-2023 Patient Instructions Note Date & Type Note Facility 12-11-2023 Instructions AMANDA Kaur - 12/11/2023 9:00 AM EDT If you re looking for general health and wellness resources, please visit [email or web address]. Read the [facility] Bariatric Guide. documented in this encounter [facility] History of Present illness Narrative 11-27-2023 Jaylen Brown MD - 11/27/2023 9:00 AM EDT Note Date & Type Note Facility 11-27-2023 History of Present illness Narrative [facility] GENERAL [facility] [address] [facility] [phone] [facility] SURGICAL WEIGHT LOSS PROGRAM INITIAL EVALUATION Patient: [...] Performed by Aries Haro Jr., DO at [facility] ARTHROSCOPY REPAIR ROTATOR CUFF SHOULDER [id number], SUBACROMIAL DECOMPRESSION 33018/extensive debridement Right 05/29/2021 Performed by Luigi Vargas MD at [facility] CHOLECYSTECTOMY COLONOSCOPY N/A 2017 Performed by Sancho Curry MD at [facility] EGD N/A 2017 Performed by Sancho Curry MD at [facility] HYSTERECTOMY partial OOPHORECTOMY Right Family History: [...] Parkinson's [] [x] Anxiety disorder [] [x] Genitourinary/2Nd Pressman YES NO Skin Intact [x] [] Urinary [...] you have any difficulty moving your head icom-cy-wibp? [x] No [] Yes Do you have [...] turgor normal, no rashes or lesions Neurologic: delinquency prevention social worker intact, normal strength. Alert and oriented. Follows [...] PAT appointment Labwork: Final Lab Tests at [facility] appointment Please note that this chart was generated using voice recognition M*Ar[employer] dictation software. Although every effort was made to ensure the accuracy of this automated water meter mechanic, some errors in water meter mechanic may have occurred. documented in this encounter [facility] Discharge instructions 10-27-2022 Discharge InstructionsAttachments Note [...] cannot be sent through Care Everywhere.Flank Pain (Venezuelan)documented in this encounter [facility] Evaluation note Note Date & Type Note Facility Evaluation note Diagnosis Left flank pain- Primary Abdominal pain, unspecified site documented in this encounter [facility] Evaluation note Note Date & Type Note Facility Evaluation note Diagnosis Obesity, Class II, BMI 35-39.9- Primary Gastroesophageal reflux disease, unspecified whether esophagitis present documented in this encounter [facility] Evaluation note Note Date & Type Note Facility Evaluation note Diagnosis Morbid obesity (CMS-HCC)- Primary Morbid obesity Pre-bariatric surgery nutrition evaluation Obesity, Class II, BMI 35-39.9 documented in this encounter [facility] Instructions Note Date & Type Note Facility Instructions Not on filedocumented in this en counter [facility] Summary Purpose Family History No [...] section and content) DATE CREATED AUTHOR 08/22/2017 [facility] DATE CREATED AUTHOR AUTHOR'S ORGANIZ ATION 04/28/2022 [facility] DATE CREATED AUTHOR AUTHOR'S ORGANIZ ATION 08/06/2023 [facility] DATE CREATED AUTHOR AUTHOR'S ORGANIZ ATION [facility] DATE CREATED AUTHOR AUTHOR'S ORGANIZ ATION 12/03/2023 [facility] DATE CREATED AUTHOR AUTHOR'S ORGANIZ ATION 12/13/2023 [facility] Reason for Visit (unrecogniz ed section and content) Reason Comments Flank Pain Left flank pain ongo ing for the past few days. on 4th day of macrobid, completed 2 other courses of antibiotics for ongoing UTI for 3 weeks. Reason Comments New Patient Reason Comments Nutrition Counseling Specialty Diagnoses / Procedures Referred By Muriel guillen Referred To Contact Nutrition Diagnoses Obesity, Class II, BMI 35-39.9 Jaylen Brown MD [address] [place] [address] Phone: tel: fax: Referral ID Status Reason Start Date Expiration Date Visits Requested Visits Authorized [id number] Pending Review Specialty Services Required 4 11/26/2024 12 12 Scheduled Active and Recently Administ ered Medications [...] Care Teams (unrecognized sec tion and content) [employer] I Assembler Relationship Specialty Start Date End Date Francia Rowell MD PCP - General 04/30/17 [employer]er Relationship Specialty Start Date End Date Francia [...] BE BASED ON THE PRIMARY CLINICAL RECORDS. [employer] [facility]. provides no warranty or guarantee of the accuracy or completeness of information in this document.
--- NOTE | 2024-01-01 12:33 | VEIN_ITS ---
[address] [address] Patient Name: TAMY CHAPIN MRN: [id number] date: 1980 Sex: F Assigned Patient Location: Current Patient Location: Accession/Order Number: [id number] Exam Date: 01/01/2024 12:35 Report Date: 01/01/2024 13:46 At the request of: ABEL COLES Procedure: VC Endovenous Ablation 1VeinRT EXAMINATION: VC Endovenous Ablation 1VeinRT HISTORY: I83.813 - Varicose veins of bilateral lower extremities w... The risks and benefits of the procedure had been previously discussed, and were rediscussed at length. Informed written consent was obtained. Juve Cardoso RN and Maria Elena Carnes RDMS assisted. Time out procedure was performed. The right lower extremity was prepared and draped in the usual sterile fashion to allow knee flexion in the sterile field. Duplex ultrasound probe was draped in a sterile cover, sterile transmission gel was used. Venous mapping was performed with the areas of dilation and large tributaries marked. The total length was 58 cm from the entry 3 cm above the ankle to 3 cm below the Saphenofemoral junction. The diameter of the right great saphenous vein ranged from 8.6 mm. A 30 gauge needle and 1% buffered lidocaine was used to anesthetize the entry site. A 4 mm incision was made with a scalpel and the saphenous vein was entered percutaneously under direct ultrasound guidance with a micropuncture set, a single stick was successful in gaining access. A micro-guide wire was inserted and the needle removed. A micro-set including a dilator was inserted over the microwire and the needle and dilator were removed. A guide wire was inserted through the micro-set and guided through the saphenous vein to the saphenofemoral junction. The dilator was removed and an introducer sheath was inserted over the wire until the end of the sheath entered the saphenofemoral junction. The dilator and wire were removed and the 600 micron fiber was introduced and placed and positioned so that it extended beyond the sheath and was 3 cm distal to the saphenofemoral or saphenopopliteal junction. Final position of the fiber was determined by ultrasound guidance and duplex imaging. Tumescent anesthetic was delivered by ultrasound guidance. 300 cc of fluid was delivered along the entire course of the saphenous vein. The solution consisted of 1000 cc of normal saline with 40 mL of 1% lidocaine and 20 mL of sodium bicarbonate. A final positioning check was made. The energy source was turned on by means of the foot pedal and the fiber and sheath were withdrawn. The total number of Joules delivered was 3775. The laser was active for 472 seconds under continuous pulse, average laser use of 8 J. Laser start time: 1:11 PM Laser stop time: 1:22 PM Date: 01/01/2024. A duplex ultrasound revealed compressibility and flow at the saphenofemoral junction immediately after the procedure. Hemostasis at the access site was achieved. The skin incision of the saphenous vein was closed with a 4 x 4. A compression stocking was applied. Postop instructions were given. A follow up appointment was recommended and scheduled. The patient tolerated the procedure well. Electronically authenticated by: ABEL COLES Date: 01/01/2024 13:46
[2024-01-01 12:36] VITALS: BP 138/72; PULSE 93; O2SAT 98
== END 2024-01-01 13:01 | disposition home or self-care (01) ==
LOC: VC 12:26
PROVIDERS: PCP Radiology Diagnostic Radiology; Visit Provider Radiology Diagnostic Radiology
DX: I83.813 Varicose veins of bilateral lower extremities with pain (principal)
CPT/HCPCS: 36478

== ENCOUNTER 2024-01-05 14:17 | Outpatient (OUT) | payer OTHER, SELFPAY ==
--- NOTE | 2024-01-05 07:50 | V.VEINS.HP ---
Varicose Veins Patient in this day for follow up ultrasound post EVLT of right GSV Raj Nogueira MD personally performed the services described in this documentation, as scribed by Libertad Britt RVT, RDMS in my presence and it is both accurate and complete. Libertad Nogueira RVT, RDMS, am scribing for, and in the presence of, Dr. Raj Helms and in the presence of the patient. thigh: bilateral, knee: bilateral, calf: bilateral, ankle: bilateral and alamo: bilateral aching, cramping, dull and tender 5 1 year Worsened in recent months: Yes standing and sitting elevating extremities and compression stockings Reports firmness, heaviness, restless legs, pruritus, limb pain, edema and leg edema History of lower extremity trauma: No Superficial thrombophlebitis: No Family history of varicose veins: yes Has patient had previous lower extremity venous surgery: No Patient has previously received the following treatment(s) for lower extremity varicose veins: Reports none Does patient have a history of : yes Does patient intend to have future pregnancies: no Has patient had lower extremity venous scan with relux testing: Yes Support hose used: Yes Problems walking or doing physical activity: Yes How does it affect you: difficulty standing at work for long periods Do you walk much: Yes Do you stand much: Yes Review of Systems ROS Narrative Raj Nogueira MD personally performed the services described in this documentation, as scribed by Libertad Britt RVT, RDMS in my presence and it is both accurate and complete. Libertad Nogueira RVT, RDMS, am scribing for, and in the presence of, Dr. Raj Helms and in the presence of the patient. 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, unspecified (ICD-10) Rotator cuff arthropathy of right shoulder ?M12.811 - Other specific arthropathies, not elsewhere classified, right shoulder (ICD-10) Hypertension ?I10 - Essential (primary) hypertension (ICD-10) Tachycardia ?R00.0 - Tachycardia, unspecified (ICD-10) Pain due to varicose veins of both lower extremities ?I83.813 - Varicose veins of bilateral lower extremities with pain (ICD-10) Surgical History (Updated 01/01/24 @ 12:58 by Juve Cardoso) Status post laser ablation of incompetent vein ?Z98.890 - Other specified postprocedural states (ICD-10) Status post laser ablation of incompetent vein ?Z98.890 - Other specified postprocedural states (ICD-10) History of appendectomy ?Z90.49 - Acquired absence of other specified parts of digestive tract (ICD-10) History of cholecystectomy ?Z90.49 - Acquired absence of other specified parts of digestive tract (ICD-10) H/O: hysterectomy ?Z90.710 - Acquired absence of both cervix and uterus (ICD-10) History of arthroplasty of left ankle ?Z96.662 - Presence of left artificial ankle joint (ICD-10) Family History (Updated 12/04/23 @ 09:16 by Christal Lima RN) Grandmother Pain due to varicose veins of both lower extremities Family history of CHF (congestive heart failure) Family history of cancer Family history of diabetes mellitus Family history of hypertension Niece Lupus Grandfather Family history of COPD (chronic obstructive pulmonary disease) Family history of hypertension Father Family history of cancer Sister Family history of diabetes mellitus Family history of hypertension Mother Family history of hypertension Social History (Updated 12/04/23 @ 09:17 by Christal Lima RN) Within the past year, how often did you have a drink containing alcohol: monthly or less Smoking status: Current some day smoker Nicotine containing products detail: 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 Non-prescribed substance use: denies use Meds Home Medications and Allergies Home Medications ?Medication ?Instructions ?Recorded ?Confirmed ?Type triamcinolone acetonide 0.1 % applic topical BID 09/04/23 History topical cream furosemide 40 mg tablet (Lasix) 40 mg PO DAILY 12/04/23 12/04/23 History meloxicam 15 mg tablet 15 mg PO DAILY 12/04/23 12/04/23 History metoprolol succinate 50 mg 25 mg PO BID 12/04/23 12/04/23 History tablet,extended release 24 hr (Toprol XL) nicotine 14 mg/24 hr daily 1 patch transdermal DAILY 12/04/23 12/04/23 History transdermal patch pantoprazole 20 mg tablet,delayed 20 mg PO DAILY 12/04/23 12/04/23 History release (Protonix) potassium chloride 20 mEq oral 20 meq PO DAILY 12/04/23 12/04/23 History packet (Klor-Con) Allergies Allergy/AdvReac Type Severity Reaction Status Date / Time hydromorphone (From Dilaudid) Allergy Severe Swelling Verified 09/04/23 20:07 of the Eye Exam Narrative Exam Narrative: Raj Nogueira MD personally performed the services described in this documentation, as scribed by Libertad Britt RVT, RDMS in my presence and it is both accurate and complete. Libertad Nogueira RVT, RDMS, am scribing for, and in the presence of, Dr. Raj Helms and in the presence of the patient. Constitutional Documenting provider has reviewed patient's vital signs: yes Common normals: oriented x3 Nutritional appearance: overweight Lymph Lymphatic: no lymphedema noted Cardio Peripheral pulses: posterior tibial pulses present and dorsalis pedis pulses present Extremity General: calf tenderness, edema and other findings Right lower extremity: lower leg Right lower leg: inspection and palpation Left lower extremity: lower leg Left lower leg: inspection and palpation Neuro Common normals: oriented x3 Results Imaging Venous US: Radiologist's impression: The ultrasound demonstrates Heat induced thrombus visualized 1.4cm from the SFJ. The heat induced thrombus extends from groin to distal calf. Heat induced thrombus visualized 2.1 cm from the SFJ. The heat induced thrombus extends from groin to proximal calf. Assessment and Plan Assessment and Plan (1) Superficial thrombophlebitis of both legs: Plan Patient in today for follow up ultrasound of lower extremity following treatment of EVLT of left leg GSV and right leg GSV. Raj Nogueira MD personally performed the services described in this documentation, as scribed by Libertad Elmlinger RVT, RDMS in my presence and it is both accurate and complete. I, Libertad Britt RVT, RDMS, am scribing for, and in the presence of, Dr. Raj Helms and in the presence of the patient.
--- NOTE | 2024-01-05 07:59 | P.DS_ITS ---
Discharge Plan Discharge Disposition: Home, Self-Care Outpatient Diagnostics: VC Endovenous Ablation 1VeinLT (Routine) Timeframe: 2 Weeks Facility: [facility] - Location: Vein Center Ordered By: Raj Helms Follow Up Appointments: 01/11/24 Plan of Treatment: EVLT of left leg AASV Print Language: Welsh Discharge Date/Time: 01/05/24 14:48
--- NOTE | 2024-01-05 14:27 | VEIN_ITS ---
Patient Name: TAMY CHAPIN MR#: [id number] : 1980 Exam Date: 01/05/2024 Ordering Doctor: DR ABEL HELMS M.D. RADIOLOGY REPORT PROCEDURE: VC EXT VENOUS HARSHAD LIMITED COMPARISON: None. INDICATIONS: I80.03 - Phlebitis and thrombophlebitis of superficial ve... TECHNIQUE: Lower extremity taveras scale and Duplex Doppler evaluation of the deep venous system from the inguinal ligament through the calf veins. FINDINGS: REGION: Right lower extremity. THROMBI: Acute and chronic appearing thrombi. Heat induced thrombus visualized 1.4cm from the SFJ. The heat induced thrombus extends from groin to distal calf. COMPRESSIBILITY: Non-compressible segments. FLOW: Normal waveform and antegrade flow between 5 and 20 cm/s. OTHER: Negative. REGION: Left lower extremity. THROMBI: Acute and chronic appearing thrombi.Heat induced thrombus visualized 2.1 cm from the SFJ. The heat induced thrombus extends from groin to proximal calf. COMPRESSIBILITY: Non-compressible segments. FLOW: Normal waveform and antegrade flow between 5 and 20 cm/s. OTHER: Negative. CONCLUSION: 1. Successful post ablation occlusion of the right and left great saphenous veins. Dictated by: Abel Helms M.D. on 01/05/2024 at 14:53 Approved by: Abel Hlems M.D. on 01/05/2024 at 14:54
--- NOTE | 2024-01-05 14:27 | VEIN_ITS ---
Patient Name: TAMY CHAPIN MR#: [id number] : 1980 Exam Date: 01/05/2024 Ordering Doctor: DR ABEL HELMS M.D. RADIOLOGY REPORT PROCEDURE: VC FACILITY EST LMTD VEIN CENTER - OFFICE VISIT FOLLOW UP COMPARISON: None. PROGRESS NOTES: The patient reports improvement in leg symptoms. There has been interval reduction in varicosities. The patient has followed our recommendations to walk 20-30 minutes once or twice per day since the procedure. Physical exam demonstrates decrease in varicosities of the leg. Persistent varicosities are identified along the legs bilaterally. Review of the ultrasound performed the same day demonstrates occlusive thrombus extending throughout the treated vein(s), see separate report, consistent with a successful ablation. No thrombus extending into or beyond the saphenofemoral junction. The patient expressed a desire to proceed with treatment of remaining incompetent varicosities. The patient was informed that treatment was a process and would require several procedures/sessions. VEIN/ Facility EST TD IMPRESSION: 1. Successful ablation of the right and left great saphenous vein(s). 2. Persistent varicose veins and lower extremity symptoms. PLAN: 1. Endovenous laser ablation of left anterior accessory saphenous vein. Nurse notes, history and physical were reviewed and confirmed, see attached forms. The nurse was present throughout the physical exam and consultation Dictated by: Abel Helms M.D. on 01/05/2024 at 14:55 Approved by: Abel Helms M.D. on 01/05/2024 at 14:55
== END 2024-01-05 14:48 | disposition home or self-care (01) ==
LOC: VC 14:17
PROVIDERS: PCP Radiology Diagnostic Radiology; Visit Provider Radiology Diagnostic Radiology
DX: I80.03 Phlebitis and thrombophlebitis of superficial vessels of lower extremities, bilateral (principal)
CPT/HCPCS: 93970; G0463

== ENCOUNTER 2024-01-11 12:57 | Outpatient (OUT) | payer OTHER, SELFPAY ==
--- NOTE | 2024-01-11 12:58 | VEIN_ITS ---
[address] [address] Patient Name: TAMY CHAPIN MRN: [id number] date: 1980 Sex: F Assigned Patient Location: Current Patient Location: Accession/Order Number: [id number] Exam Date: 01/11/2024 13:08 Report Date: 01/11/2024 14:42 At the request of: ABEL COLES Procedure: VC Endovenous Ablation 1VeinLT EXAMINATION: VC Endovenous Ablation 1VeinLT HISTORY: I83.813 - Varicose veins of bilateral lower extremities w... The risks and benefits of the procedure had been previously discussed, and were rediscussed at length. Informed written consent was obtained. Juve Cardoso RN and Maria Elena Carnes RDMS assisted. Time out procedure was performed. The left lower extremity was prepared and draped in the usual sterile fashion to allow knee flexion in the sterile field. Duplex ultrasound probe was draped in a sterile cover, sterile transmission gel was used. Venous mapping was performed with the areas of dilation and large tributaries marked. The total length was 15 cm from the entry mid-upper thigh to 3 cm below the Saphenofemoral junction. The diameter of the left anterior accessory saphenous vein ranged from 7.4 mm. A 30 gauge needle and 1% buffered lidocaine was used to anesthetize the entry site. A 4 mm incision was made with a scalpel and the saphenous vein was entered percutaneously under direct ultrasound guidance with a micropuncture set, a single stick was successful in gaining access. A micro-guide wire was inserted and the needle removed. A micro-set including a dilator was inserted over the microwire and the needle and dilator were removed. A guide wire was inserted through the micro-set and guided through the saphenous vein to the saphenofemoral junction. The dilator was removed and an introducer sheath was inserted over the wire until the end of the sheath entered the saphenofemoral junction. The dilator and wire were removed and the 600 micron fiber was introduced and placed and positioned so that it extended beyond the sheath and was 3 cm distal to the saphenofemoral or saphenopopliteal junction. Final position of the fiber was determined by ultrasound guidance and duplex imaging. Tumescent anesthetic was delivered by ultrasound guidance. 200 cc of fluid was delivered along the entire course of the saphenous vein. The solution consisted of 1000 cc of normal saline with 40 mL of 1% lidocaine and 20 mL of sodium bicarbonate. A final positioning check was made. The energy source was turned on by means of the foot pedal and the fiber and sheath were withdrawn. The total number of Joules delivered was 899. The laser was active for 112 seconds under continuous pulse, average laser use of 8 J. Laser start time: 1:58 PM Laser stop time: 2:00 PM Date: 01/11/2024. A duplex ultrasound revealed compressibility and flow at the saphenofemoral junction immediately after the procedure. Hemostasis at the access site was achieved. The skin incision of the saphenous vein was closed with a 4 x 4. A compression stocking was applied. Postop instructions were given. A follow up appointment was recommended and scheduled. The patient tolerated the procedure well. Electronically authenticated by: ABEL COLES Date: 01/11/2024 14:42
[2024-01-11] MEDS: 0.9 % SODIUM CHLORIDE 500 ML, LIDOCAINE HCL 20 ML, SODIUM BICARBONATE 10 MEQ INJ (13:00)
[2024-01-11] MEDS: LIDOCAINE HCL 1% 100 MG/10 ML MDV INJ (13:01)
--- NOTE | 2024-01-11 13:48 | P.DS_ITS ---
Discharge Plan Discharge Disposition: Home, Self-Care Outpatient Diagnostics: VC Facility EST LMTD (Routine) Timeframe: 2 Weeks Facility: [facility] - Location: Vein Center Ordered By: Raj Helms VC EXT Venous LT Limited (Routine) Timeframe: 2 Weeks Facility: [facility] - Location: Vein Center Ordered By: Raj Helms Follow Up Appointments: 01/14/2024 Plan of Treatment: f/u exination with physician along with left leg limited u/s Patient Instructions: Endovenous Ablation (DC) Print Language: Bahamian Discharge Date/Time: 01/11/24 13:52
[2024-01-11 13:52] VITALS: BP 160/76; PULSE 90; O2SAT 100
--- NOTE | 2024-01-11 13:52 | VEINCLINIC_ITS ---
Vital Signs 01/11/24 13:52 BP 160/76 H BP Location Left Brachial BP Position Sitting BP Cuff Size Adult BP Source Manual Cuff Respiration 16 Pulse 90 Pulse Source Monitor Pulse Oximetry (%) 100 Oxygen Delivery Method Room Air Comment The patient's blood pressure is elevated. Varicose Veins Patient in this day for EVLT of left GSV Raj Nogueira MD personally performed the services described in this documentation, as scribed by Juve Cardoso RN in my presence and it is both accurate and complete. Juve Nogueira RN, am scribing for, and in the presence of, Dr. Raj Helms and in the presence of the patient. thigh: bilateral, knee: bilateral, calf: bilateral, ankle: bilateral and alamo: bilateral aching, cramping, dull and tender 5 1 year Worsened in recent months: Yes standing and sitting elevating extremities and compression stockings Reports firmness, heaviness, restless legs, pruritus, limb pain, edema and leg edema History of lower extremity trauma: No Superficial thrombophlebitis: No Family history of varicose veins: yes Has patient had previous lower extremity venous surgery: No Patient has previously received the following treatment(s) for lower extremity varicose veins: Reports none Does patient have a history of : yes Does patient intend to have future pregnancies: no Has patient had lower extremity venous scan with relux testing: Yes Support hose used: Yes Problems walking or doing physical activity: Yes How does it affect you: difficulty standing at work for long periods Do you walk much: Yes Do you stand much: Yes Review of Systems ROS Narrative Raj Nogueira MD personally performed the services described in this documentation, as scribed by Juve Cardoso RN in my presence and it is both accurate and complete. Juve Nogueira RN, am scribing for, and in the presence of, Dr. Raj Helms and in the presence of the patient. Status of ROS 10 or more systems reviewed and unremark able except as noted in history and below Cardiovascular Reports: edema and swelling of feet/ankles Musculoskeletal Reports: extremity pain, extremity swelling, joint pain, joint swelling and muscle cramps Integumentary/Breast Reports: itching, skin tenderness and skin swelling [facility] History (Updated 01/11/24 @ 13:49 by Juve Cardoso) Superficial thrombophlebitis of left leg ?I80.02 - Phlebitis and thrombophlebitis of superficial vessels of left lower extremity (ICD-10) Superficial thrombophlebitis of both legs ?I80.03 - Phlebitis and thrombophlebitis of superficial vessels of lower extremities, bilateral (ICD-10) 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, unspecified (ICD-10) Rotator cuff arthropathy of right shoulder ?M12.811 - Other specific arthropathies, not elsewhere classified, right shoulder (ICD-10) Hypertension ?I10 - Essential (primary) hypertension (ICD-10) Tachycardia ?R00.0 - Tachycardia, unspecified (ICD-10) Pain due to varicose veins of both lower extremities ?I83.813 - Varicose veins of bilateral lower extremities with pain (ICD-10) Surgical History (Updated 01/01/24 @ 12:58 by Juve Cardoso) Status post laser ablation of incompetent vein ?Z98.890 - Other specified postprocedural states (ICD-10) Status post laser ablation of incompetent vein ?Z98.890 - Other specified postprocedural states (ICD-10) History of appendectomy ?Z90.49 - Acquired absence of other specified parts of digestive tract (ICD- 10) History of cholecystectomy ?Z90.49 - Acquired absence of other specified parts of digestive tract (ICD- 10) H/O: hysterectomy ?Z90.710 - Acquired absence of both cervix and uterus (ICD-10) History of arthroplasty of left ankle ?Z96.662 - Presence of left artificial ankle joint (ICD-10) Family History (Updated 12/04/23 @ 09:16 by Christal Lima RN) Grandmother Pain due to varicose veins of both lower extremities Family history of CHF (congestive heart failure) Family history of cancer Family history of diabetes mellitus Family history of hypertension Niece Lupus Grandfather Family history of COPD (chronic obstructive pulmonary disease) Family history of hypertension Father Family history of cancer Sister Family history of diabetes mellitus Family history of hypertension Mother Family history of hypertension Social History (Updated 12/04/23 @ 09:17 by Christal Lima RN) Within the past year, how often did you have a drink containing alcohol: monthly or less Smoking status: Current some day smoker Nicotine containing products detail: 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 Non-prescribed substance use: denies use Meds Home Medications and Allergies Home Medications ?Medication ?Instructions ?Recorded ?Confirmed ?Type triamcinolone acetonide 0.1 % applic topical BID 09/04/23 History topical cream furosemide 40 mg tablet (Lasix) 40 mg PO DAILY 12/04/23 12/04/23 History meloxicam 15 mg tablet 15 mg PO DAILY 12/04/23 12/04/23 History metoprolol succinate 50 mg 25 mg PO BID 12/04/23 12/04/23 History tablet,extended release 24 hr (Toprol XL) nicotine 14 mg/24 hr daily 1 patch transdermal DAILY 12/04/23 12/04/23 History transdermal patch pantoprazole 20 mg tablet,delayed 20 mg PO DAILY 12/04/23 12/04/23 History release (Protonix) potassium chloride 20 mEq oral 20 meq PO DAILY 12/04/23 12/04/23 History packet (Klor-Con) Allergies Allergy/AdvReac Type Severity Reaction Status Date / Time hydromorphone (From Dilaudid) Allergy Severe Swelling Verified 09/04/23 20:07 of the Eye Exam Narrative Exam Narrative: Raj Nogueira MD personally performed the services described in this documentation, as scribed by Juve Cardoso RN in my presence and it is both accurate and complete. Juve Nogueira RN, am scribing for, and in the presence of, Dr. Raj Helms and in the presence of the patient. Constitutional Documenting provider has reviewed patient's vital signs: yes Common normals: oriented x3 Nutritional appearance: overweight Lymph Lymphatic: no lymphedema noted Cardio Peripheral pulses: posterior tibial pulses present and dorsalis pedis pulses present Extremity General: calf tenderness, edema and other findings Right lower extremity: lower leg Right lower leg: inspection and palpation Left lower extremity: lower leg Left lower leg: inspection and palpation Neuro Common normals: oriented x3 Assessment and Plan Assessment and Plan (1) Pain due to varicose veins of both lower extremities: Plan f/u examination with physician along with left leg limited u/s Raj Nogueira MD personally performed the services described in this documentation, as scribed by Juve Cardoso RN in my presence and it is both accurate and complete. Juve Nogueira RN, am scribing for, and in the presence of, Dr. Raj Helms and in the presence of the patient. Procedures Procedure Instructions Procedures Plan of care: Risks and benefits of the procedure were discussed at length and informed written consent was obtained.? Time-out completed for verification of correct patient, procedure and site.? Staff present during time-out: Juve Cardoso RN,? Raj Helms MD, Maria Elena Blackburn RDCT, Time Out Time__1347 Patient prepped and procedure performed in usual sterile fashion. Risk of injury related to use of Diode laser and/or laser devices_CR___ ? Serial number of laser used :? [id number] Control panel self test performed, electrical cords in good condition, floor is dry, basin of water available, fire extinguisher in close proximity_CR__ Polycarbonate goggles available and Laser warning signs outside of doors___CR__ Eye protection provided to patient and staff in room_CR___ Use of laser retardant drapes and dull blackened instruments as directed__CR___ Use of nonflammable prep solutions and use of saline soaked sponges to protect tissues as indicated _CR___ Length ___15 cm Laser operated by ___Dr. Helms Physician verbal confirmation laser locked in place__CR__ Laser start time (date and time) __01/11/2024@1358 Laser stop time(date and time) __01/11/2024@1400 Lopez _8.0___ Average laser use _899 Joules Average laser use__112 seconds Pulse continuous ___CR_? Pulse intermittent ___ Amount of Tumescent used _200cc Evaluated patient for signs and symptoms of electrical injury __CR___ ? Skin clear at insertion site __CR___ Patient tolerated procedure well.? Left leg Coban dressing applied to access site.? Applied Left thigh high leg compression stocking. Will return on 01/14/2024 for Left leg limited venous ultrasound and exam.
== END 2024-01-11 13:52 | disposition home or self-care (01) ==
PROVIDERS: PCP Radiology Diagnostic Radiology; Visit Provider Radiology Diagnostic Radiology
DX: I83.813 Varicose veins of bilateral lower extremities with pain (principal)
CPT/HCPCS: 36478

== ENCOUNTER 2024-01-14 12:56 | Outpatient (OUT) | payer OTHER, SELFPAY ==
--- NOTE | 2024-01-13 15:35 | VEINCLINIC_ITS ---
Vital Signs 01/14/24 13:09 BP 144/72 H BP Location Right Brachial BP Position Sitting BP Cuff Size Adult BP Source Manual Cuff Respiration 16 Pulse 90 Pulse Source Monitor Pulse Oximetry (%) 98 Oxygen Delivery Method Room Air Comment The patient's blood pressure is elevated. Varicose Veins Patient in this day for EVLT of left AASV Cesar Nogueira MD personally performed the services described in this documentation, as scribed by Juve Cardoso RN in my presence and it is both accurate and complete. IJuve RN, am scribing for, and in the presence of, Dr. Cesar Salcido and in the presence of the patient. thigh: bilateral, knee: bilateral, calf: bilateral, ankle: bilateral and alamo: bilateral aching, cramping, dull and tender 5 1 year Worsened in recent months: Yes standing and sitting elevating extremities and compression stockings Reports firmness, heaviness, restless legs, pruritus, limb pain, edema and leg edema History of lower extremity trauma: No Superficial thrombophlebitis: No Family history of varicose veins: yes Has patient had previous lower extremity venous surgery: No Patient has previously received the following treatment(s) for lower extremity varicose veins: Reports none Does patient have a history of : yes Does patient intend to have future pregnancies: no Has patient had lower extremity venous scan with relux testing: Yes Support hose used: Yes Problems walking or doing physical activity: Yes How does it affect you: difficulty standing at work for long periods Do you walk much: Yes Do you stand much: Yes Review of Systems ROS Narrative Cesar Nogueira MD personally performed the services described in this documentation, as scribed by Juve Cardoso RN in my presence and it is both accurate and complete. Juve Nogueira RN, am scribing for, and in the presence of, Dr. Cesar Salcido and in the presence of the patient. Status of ROS 10 or more systems reviewed and unremark able except as noted in history and below Cardiovascular Reports: edema and swelling of feet/ankles Musculoskeletal Reports: extremity pain, extremity swelling, joint pain, joint swelling and muscle cramps Integumentary/Breast Reports: itching, skin tenderness and skin swelling [facility] Medical History (Updated 01/11/24 @ 13:49 by Juve Cardoso) Superficial thrombophlebitis of left leg ?I80.02 - Phlebitis and thrombophlebitis of superficial vessels of left lower extremity (ICD-10) Superficial thrombophlebitis of both legs ?I80.03 - Phlebitis and thrombophlebitis of superficial vessels of lower extremities, bilateral (ICD-10) 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, unspecified (ICD-10) Rotator cuff arthropathy of right shoulder ?M12.811 - Other specific arthropathies, not elsewhere classified, right shoulder (ICD-10) Hypertension ?I10 - Essential (primary) hypertension (ICD-10) Tachycardia ?R00.0 - Tachycardia, unspecified (ICD-10) Pain due to varicose veins of both lower extremities ?I83.813 - Varicose veins of bilateral lower extremities with pain (ICD-10) Surgical History (Updated 01/14/24 @ 13:13 by Juve Cardoso) Status post laser ablation of incompetent vein ?Z98.890 - Other specified postprocedural states (ICD-10) Status post laser ablation of incompetent vein ?Z98.890 - Other specified postprocedural states (ICD-10) Status post laser ablation of incompetent vein ?Z98.890 - Other specified postprocedural states (ICD-10) History of appendectomy ?Z90.49 - Acquired absence of other specified parts of digestive tract (ICD- 10) History of cholecystectomy ?Z90.49 - Acquired absence of other specified parts of digestive tract (ICD- 10) H/O: hysterectomy ?Z90.710 - Acquired absence of both cervix and uterus (ICD-10) History of arthroplasty of left ankle ?Z96.662 - Presence of left artificial ankle joint (ICD-10) Family History (Updated 12/04/23 @ 09:16 by Christal Lima RN) Grandmother Pain due to varicose veins of both lower extremities Family history of CHF (congestive heart failure) Family history of cancer Family history of diabetes mellitus Family history of hypertension Niece Lupus Grandfather Family history of COPD (chronic obstructive pulmonary disease) Family history of hypertension Father Family history of cancer Sister Family history of diabetes mellitus Family history of hypertension Mother Family history of hypertension Social History (Updated 12/04/23 @ 09:17 by Christal Lima RN) Within the past year, how often did you have a drink containing alcohol: monthly or less Smoking status: Current some day smoker Nicotine containing products detail: 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 Non-prescribed substance use: denies use Meds Home Medications and Allergies Home Medications ?Medication ?Instructions ?Recorded ?Confirmed ?Type triamcinolone acetonide 0.1 % applic topical BID 09/04/23 History topical cream furosemide 40 mg tablet (Lasix) 40 mg PO DAILY 12/04/23 12/04/23 History meloxicam 15 mg tablet 15 mg PO DAILY 12/04/23 12/04/23 History metoprolol succinate 50 mg 25 mg PO BID 12/04/23 12/04/23 History tablet,extended release 24 hr (Toprol XL) nicotine 14 mg/24 hr daily 1 patch transdermal DAILY 12/04/23 12/04/23 History transdermal patch pantoprazole 20 mg tablet,delayed 20 mg PO DAILY 12/04/23 12/04/23 History release (Protonix) potassium chloride 20 mEq oral 20 meq PO DAILY 12/04/23 12/04/23 History packet (Klor-Con) Allergies Allergy/AdvReac Type Severity Reaction Status Date / Time hydromorphone (From Dilaudid) Allergy Severe Swelling Verified 09/04/23 20:07 of the Eye Exam Narrative Exam Narrative: Cesar Nogueira MD personally performed the services described in this documentation, as scribed by Juve Cardoso RN in my presence and it is both accurate and complete. Juve Nogueira RN, am scribing for, and in the presence of, Dr. Cesar Salcido and in the presence of the patient. Constitutional Documenting provider has reviewed patient's vital signs: yes Common normals: oriented x3 Nutritional appearance: overweight Lymph Lymphatic: no lymphedema noted Cardio Peripheral pulses: posterior tibial pulses present and dorsalis pedis pulses present Extremity General: calf tenderness, edema and other findings Right lower extremity: lower leg Right lower leg: inspection and palpation Left lower extremity: lower leg Left lower leg: inspection and palpation Neuro Common normals: oriented x3 Assessment and Plan Assessment and Plan (1) Pain due to varicose veins of both lower extremities: Plan f/u evaluation with physician along with left leg limited u/s Cesar Nogueira MD personally performed the services described in this documentation, as scribed by Juve Cardoso RN in my presence and it is both accurate and complete. Juve Nogueira RN, am scribing for, and in the presence of, Dr. Cesar Salcido and in the presence of the patient. Procedures Procedure Instructions Procedures Plan of care: Risks and benefits of the procedure were discussed at length and informed written consent was obtained.? Time-out completed for verification of correct patient, procedure and site.? Staff present during time-out: Juve Cardoso RN,? Cesar Salcido MD, Maria Elena Blackburn RDCA, Time Out Time_1324 Patient prepped and procedure performed in usual sterile fashion. Risk of injury related to use of Diode laser and/or laser devices? Serial number of laser used :? [id number] Control panel self test performed, electrical cords in good condition, floor is dry, basin of water available, fire extinguisher in close proximity_CR__ Polycarbonate goggles available and Laser warning signs outside of doors___CR__ Eye protection provided to patient and staff in room_CR___ Use of laser retardant drapes and dull blackened instruments as directed__CR___ Use of nonflammable prep solutions and use of saline soaked sponges to protect tissues as indicated _CR___ Length __14 cm Laser operated by __Dr. Salcido Physician verbal confirmation laser locked in place__CR__ Laser start time (date and time) __01/14/2024@__1335 Laser stop time(date and time) __01/14/2024@_1338 Lopez _8.0___ Average laser use __861 Joules Average laser use___108 seconds Pulse continuous ___CR_? Pulse intermittent ___ Amount of Tumescent used __125cc____ Evaluated patient for signs and symptoms of electrical injury __CR___ ? Skin clear at insertion site __CR___ Patient tolerated procedure well.? Left leg Coban dressing applied to access site.? Applied Left thigh high leg compression stocking. Will return on 01/18/2024 for Left leg limited venous ultrasound and exam. I, Cesar Salcido MD personally performed the services described in this documentation, as scribed by Juve Cardoso RN in my presence and it is both accurate and complete. I, Juve Cardoso RN, am scribing for, and in the presence of, Dr. Cesar Salcido and in the presence of the patient.
--- NOTE | 2024-01-13 15:38 | W.VEIN ---
Discharge Plan Discharge Disposition: Home, Self-Care Outpatient Diagnostics: VC Facility EST LMTD (Routine) Timeframe: 2 Weeks Facility: [facility] - Location: [facility] Ordered By: Cesar Salcido VC EXT Venous HARSHAD Limited (Routine) Timeframe: 2 Weeks Facility: [facility] - Location: Vein Center Ordered By: Cesar Salcido Follow Up Appointments: 01/18/2024 Plan of Treatment: f/u evaluation with physician along with left leg limted u/s Patient Instructions: Endovenous Ablation (DC) Print Language: Mongolian Discharge Date/Time: 01/14/24 13:50
[2024-01-14] MEDS: LIDOCAINE HCL 1% 100 MG/10 ML MDV INJ (12:58)
[2024-01-14] MEDS: 0.9 % SODIUM CHLORIDE 500 ML, LIDOCAINE HCL 20 ML, SODIUM BICARBONATE 10 MEQ INJ (12:58)
--- NOTE | 2024-01-14 13:01 | VEIN_ITS ---
[address] [address] Patient Name: TAMY CHAPIN MRN: [id number] date: 1980 Sex: F Assigned Patient Location: Current Patient Location: Accession/Order Number: [id number] Exam Date: 01/14/2024 13:05 Report Date: 01/14/2024 14:18 At the request of: MAURICIO LYONS Procedure: VC Endovenous Ablation 1VeinRT EXAMINATION: VC Endovenous Ablation 1Vein right anterior accessory saphenous vein HISTORY: I83.813 - Varicose veins of bilateral lower extremities w... COMPARISON: No relevant comparison available. TECHNIQUE: The risks and benefits of the procedure had been previously discussed, and were rediscussed at length. Informed written consent was obtained. Edith Blackburn and Juve Cardoso assisted. Time out procedure was performed. The right lower extremity was prepared and draped in the usual sterile fashion to allow knee flexion in the sterile field. Duplex ultrasound probe was draped in a sterile cover, sterile transmission gel was used. Venous mapping was performed with the areas of dilation and large tributaries marked. The total length was 14 cm from the entry mid thigh to 3 cm below the saphenofemoral junction. The diameter of the inferior accessory saphenous vein ranged from 5-6 mm. A 30 gauge needle and 1% buffered lidocaine was used to anesthetize the entry site. A 4 mm incision was made with a scalpel and the saphenous vein was entered percutaneously under direct ultrasound guidance with a micropuncture set, a single stick was successful in gaining access. A micro-guide wire was inserted and the needle removed. A micro-set including a dilator was inserted over the microwire and the needle and dilator were removed. A 0.018 guide wire was inserted through the micro-set and threaded through the saphenous vein to the saphenofemoral junction. The dilator was removed and an introducer sheath was inserted over the wire until the end of the sheath entered the saphenofemoral junction. The dilator and wire were removed and the 600 micron fiber was introduced and placed and positioned so that it extended beyond the sheath and was 3 cm peripheral to the saphenofemoral femoral junction. Final position of the fiber was determined by ultrasound guidance and duplex imaging. Tumescent anesthetic was delivered by ultrasound guidance. 125 cc of fluid was delivered along the entire course of the saphenous vein. The solution consisted of 1000 cc of normal saline with 40 mL of 1% lidocaine and 20 mL of sodium bicarbonate. A final positioning check was made. The energy source was turned on by means of the foot pedal and the fiber and sheath were withdrawn. The total number of Joules delivered was 861. The laser was active for 108 seconds under continuous pulse, average laser use of 8 J. Laser start time 13301/14/2024 . Laser stop time 133701/14/2024 . A duplex ultrasound revealed compressibility and flow at the saphenofemoral junction immediately after the procedure. Hemostasis at the access site was achieved. The skin incision of the saphenous vein was closed with a 4 x 4. A compression stocking was applied. Postop instructions were given. A follow up appointment was recommended and scheduled. The patient tolerated the procedure well and was discharged in good condition . VEIN/VC Endovenous Ablation 1VeinRT IMPRESSION: Technically successful endovenous laser ablation of the anterior accessory saphenous vein Electronically authenticated by: MAURICIO LYONS Date: 01/14/2024 14:18
[2024-01-14 13:09] VITALS: BP 144/72; PULSE 90; O2SAT 98
--- OUTSIDE RECORDS SUMMARY | 2024-01-14 13:18 | XMS_ITS | CCD ---
Author Organization [facility] Care Team Providers Care Ram Car Operator Name Role Phone STEPANIC, ARIES C Unavailable Unavailable STEPANIC, ARIES C Unavailable Unavailable HOY, FRANCIA Unavailable Unavailable KerroBunny M Unavailable Unavailable STEPANIC, ARIES C Unavailable [...] Unavailable HOY ., DR FELDMAN Consulting Unavailable [place]ILL[place]O, DR MAURICIO Fraser Consulting Unavailable Unavailable Primary Care Provider UnavailANNA Elmore Attending Unavailable Francia Rowell MD Primary Care Provider [phone] JAYLEN BROWN Attending Unavailable HOY, FRANCIA M [...] / oxyCODONE; Translations: [Percocet 5/325] Drug Allergy [facility] Repository (2 sources) HYDROmorphone; Translations: [Dilaudid] [facility] egg extract Drug Allergy 7 [facility] Repository (7 sources) HYDROmorphone; Translations: [HYDROMORPHONE] Drug Allergy [address] [facility] Medications Current Medications Medication Drug Class(es) Dates Sig (Normalized) Sig (Original) 1 ml erenumab-aooe 70 mg/ml auto-injector (3 sources) inject 140 mg by subcutaneous injection every 30 days erenumab-aooe 70 mg/mL auto-injector Inject 140 mg under the skin every 30 (thirty) days. Active furosemide 40 mg oral tablet (3 sources) Loop Diuretic Start: 11-24-2023 take 1 [...] (Therapy completed) meloxicam 15 mg oral tablet (3 sources) Nonsteroidal Anti-inflammatory Drug Start: 11-02-2023 take 1 tablet by mouth in the morning meloxicam (MOBIC) 15 mg tablet Take 1 tablet (15 mg total) by mouth in the morning. 11/02/2023 Active metoprolol tartrate 50 mg oral tablet (4 sources) beta-Adrenergic Carlos take 1 tablet by [...] pantoprazole 40 mg delayed release oral tablet (3 sources) Proton Pump Inhibitor Start: 11-02-2023 take 1 tablet by mouth once daily before breakfast pantoprazole (PROTONIX) 40 mg EC tablet Take 1 tablet (40 mg total) by mouth every morning before breakfast. 11/02/2023 Active microencapsulated potassium chloride 20 meq extended release oral tablet (3 sources) Start: 11-13-2023 take 1 tablet by [...] Active promethazine hydrochloride 25 mg oral tablet (3 sources) Phenothiazine Start: 10-27-2023 take 1 tablet by mouth once daily as needed for nausea promethazine (PHENERGAN) 25 mg tablet Take 1 tablet (25 mg total) by mouth daily as needed for nausea. 10/27/2023 Active rimegepant 75 mg disintegrating oral tablet (3 sources) rimegepant (NURTEC ODT) 75 mg tablet,disintegra [...] completed) triamcinolone acetonide 1 mg/ml topical cream (3 sources) Corticosteroid Start: 04-09-2021 triamcinolone (KENALOG) 0.1 [...] mg 2 ml ondansetron 2 mg/ml injection (4 sources) Serotonin-3 Receptor Antagonist Start: 10-27-2022 End: [...] Problem Date Documented Date Episodic/Chronic Administrative/social admission (3 sources) Patient encounter status; Translations: [Dietary counseling [...] Chronic Other nutritional; endocrine; and metabolic disorders (2 sources) Morbid obesity; Translations: [Morbid (severe) obesity due [...] pain] Onset: 03-28-2022 10-27-2022 Episodic Mood disorders (3 sources) Mood disorders Onset: 04-15-2022 04-15-2022 Nonmalignant breast conditions (6 sources) Cyst of right breast; Translations: [Solitary cyst of right breast] Onset: 03-10-2022 03-10-2022 Episodic Other and unspecified benign neoplasm (3 sources) Pituitary microadenoma; Translations: [Benign neoplasm of pituitary gland] Onset: 05-22-2020 05-13-2021 Episodic Other connective tissue disease (3 sources) Bicipital tendinitis, right shoulder; Translations: [Bicipital tenosynovitis] Onset: 05-02-2021 05-02-2021 Episodic Residual codes; unclassified (3 sources) Family history of breast cancer; Translations: [Family history of malignant neoplasm of breast] Onset: 03-04-2022 03-04-2022 Episodic Sprains and strains (6 sources) Strain of muscle(s) and tendon(s) of the rotator cuff of right shoulder, initial encounter; Translations: [Rotator cuff (capsule) sprain] Onset: 03-11-2021 05-02-2021 Episodic Results Test Name Value Interpretation Reference Range Facility CBC AND AUTO DIFFon 12-02-19 ABSOLUTE BASOPHIL 0.0 X10E9/L Normal 0.0-0.2 [facility] Comment on above: Performed By: #### L IVR, 2131-10, CBCA, 38871-3, 3016-3, 2498- 4, 2731-8, HA1C #### [facility] ([id number]) [address], [address] [place] [address] ABSOLUTE NEUTROPHIL 7.1 X10E9/L High 1.5-6.6 [facility] Comment on above: Performed By: #### L IVR, 2131-10, CBCA, 72738-5, 3016-3, 2498- 4, 2731-8, HA1C #### [facility] ([id number]) [address], [address] [place] [address] Basophils/100 WBC (Bld) 0.4 % Normal [facility] Comment on above: Performed By: #### L IVR, 2131-10, CBCA, 77555-5, 3016-3, 2498- 4, 2731-8, HA1C #### [facility] ([id number]) [address], [address] [place] [address] Eosinophils (Bld) [#/Vol] 0.1 10*3/uL Normal 0.0-0.4 [facility] Comment on above: Performed By: #### L IVR, 2131-10, CBCA, 91556-9, 3016-3, 2498- 4, 2731-8, HA1C #### [facility] ([id number]) [address], [address] [place] [address] Eosinophils/100 WBC (Bld) 0.6 % Normal [facility] Comment on above: Performed By: #### L IVR, 2131-10, CBCA, 69957-4, 3016-3, 2498- 4, 2731-8, HA1C #### [facility] ([id number]) [address] [address] [place] [address] Erythrocyte distribution width (RBC) [Ratio] 14.1 % Normal 11.5-15.0 [facility] Comment on above: Performed By: #### L IVR, 2131-10, CBCA, 26040-6, 3016-3, 2498- 4, 2731-8, HA1C #### [facility] ([id number]) [address] [address] [place] [address] Hematocrit (Bld) [Volume fraction] 42.9 % Normal 35-47 [facility] Comment on above: Performed By: #### L IVR, 2131-10, CBCA, 41889-9, 3016-3, 2498- 4, 2731-8, HA1C #### [facility] ([id number]) [address] [address] [place] [address] Hemoglobin (Bld) [Mass/Vol] 14.5 g/dL Normal 11.7-15.5 [facility] Comment on above: Performed By: #### L IVR, 2131-10, CBCA, 28241-4, 3016-3, 2498- 4, 2731-8, HA1C #### [facility] ([id number]) [address] [address] Lymphocytes (Bld) [#/Vol] 2.5 10*3/uL Normal 1.0-3.5 [facility] Comment on above: Performed By: #### L IVR, 2131-10, CBCA, 44828-2, 3016-3, 2498- 4, 2731-8, HA1C #### [facility] ([id number]) [address] [address] [place] [address] Lymphocytes/100 WBC (Bld) 24.0 % Normal [facility] Comment on above: Performed By: #### L IVR, 2131-10, CBCA, 36915-3, 3016-3, 2498- 4, 2731-8, HA1C #### [facility] ([id number]) [address], [address] [place] [address] MCH (RBC) [Entitic mass] 31.9 pg Normal 27-34 [facility] Comment on above: Performed By: #### L IVR, 2131-10, CBCA, 91874-6, 3016-3, 2498- 4, 2731-8, HA1C #### [facility] ([id number]) [address], [address] [place] [address] MCHC (RBC) [Mass/Vol] 33.9 g/dL Normal 32-36 [facility] Comment on above: Performed By: #### L IVR, 2131-10, CBCA, 13811-4, 3016-3, 2498- 4, 2731-8, HA1C #### [facility] ([id number]) [address], [address] [place] [address] MCV (RBC) [Entitic vol] 94 fL Normal 80-100 [facility] Comment on above: Performed By: #### L IVR, 2131-10, CBCA, 87427-0, 3016-3, 2498- 4, 2731-8, HA1C #### [facility] ([id number]) [address], [address] [place] [address] Monocytes (Bld) [#/Vol] 0.6 10*3/uL Normal 0-0.9 [facility] Comment on above: Performed By: #### L IVR, 2131-10, CBCA, 87668-4, 3016-3, 2498- 4, 2731-8, HA1C #### [facility] ([id number]) [address], [address] [place] [address] Monocytes/100 WBC (Bld) 6.2 % Normal [facility] Comment on above: Performed By: #### L IVR, 2131-10, CBCA, 71981-9, 3016-3, 2498- 4, 2731-8, HA1C #### [facility] ([id number]) [address], [address] [place] [address] Neutrophils/100 WBC (Bld) 68.8 % Normal [facility] Comment on above: Performed By: #### L IVR, 2131-10, CBCA, 11471-3, 3016-3, 2498- 4, 2731-8, HA1C #### [facility] ([id number]) [address] [address] [place] [address] Platelet mean volume (Bld) [Entitic vol] 8.3 fL Normal 7-12 [facility] Comment on above: Performed By: #### L IVR, 2131-10, CBCA, 89030-0, 3016-3, 2498- 4, 2731-8, HA1C #### [facility] ([id number]) [address] [address] [place] [address] Platelets (Bld) [#/Vol] 268 10*3/uL Normal 150-450 [facility] Comment on above: Performed By: #### L IVR, 2131-10, CBCA, 24237-9, 3016-3, 2498- 4, 2731-8, HA1C #### [facility] ([id number]) [address] [address] [place] [address] RBC COUNT 4.55 X10E12/L Normal 3.80-5.20 [facility] Comment on above: Performed By: #### L IVR, 9, CBCA, 81465-6, 3016-3, 2498- 4, 2731-8, HA1C #### [facility] ([id number]) [address], [address] [place] [address] WBC (Bld) [#/Vol] 10.3 10*3/uL Normal 4.0-11.0 [facility] Comment on above: Performed By: #### L IVR, 2131-10, CBCA, 38727-2, 3016-3, 2498- 4, 2730-8, HA1C #### [facility] ([id number]) [address], [address] [place] [address] FL UGI WITH ESOPHAGUSon 11-10 [place] UGI [...] Dubois DO on 12/02/2023 1:28 PM Normal [facility] HGB A1C (GLYCO-HGB)on 2023 Glucose [Mass/Vol] 100 mg/dL Normal [facility] Comment on above: Performed By: #### L IVR, 2131-10, CBCA, 27429-1, 3016-3, 2498- 4, 2730-8, HA1C #### [facility] ([id number]) [address], [address] [place] [address] HbA1c (Bld) [Mass fraction] 5.1 % Normal 4.4-5.6 [facility] Comment on above: Result Comment: NOTE ADA Guidelines Result HgbA1c Normal : less than 5.7 % Prediabetes : 5.7 % to 6.4 % Diabetes : > 6.4 % Use with caution in patients with abnormal hemoglobin variants as the half-life of red blood cells and in vivo glycation rates are affected. Performed By: #### L IVR, 2131-10, CBCA, 25908-1, 3016-3, 2498-4, 2731-8, HA1C #### [facility] ([id number]) [address], [address] [place] [address] IRONon 12-02-2023 Iron [Mass/Vol] 87 ug/dL Normal 50-170 [facility] Comment on above: Performed By: #### L IVR, 2131-10, CBCA, 68499-0, 3016-3, 2498- 4, 2731-8, HA1C #### [facility] ([id number]) [address], [address] [place] [address] LIVER PANELon 12-02-2023 Albumin [Mass/Vol] 3.6 g/dL Normal 3.2-5.3 [facility] Comment on above: Performed By: #### L IVR, 2131-10, CBCA, 48567-2, 3016-3, 2498- 4, 2731-8, HA1C #### [facility] ([id number]) [address], [address] [place] [address] ALP [Catalytic activity/Vol] 58 U/L Normal 39-130 [facility] Comment on above: Performed By: #### L IVR, 2131-10, CBCA, 52267-5, 3016-3, 2498- 4, 2731-8, HA1C #### [facility] ([id number]) [address], [address] [place] [address] ALT [Catalytic activity/Vol] 14 U/L Normal 0-31 [facility] Comment on above: Performed By: #### L IVR, 2131-10, CBCA, 84624-3, 3016-3, 2498- 4, 2731-8, HA1C #### [facility] ([id number]) [address], [address] [place] [address] AST [Catalytic activity/Vol] 14 U/L Normal 0-41 [facility] Comment on above: Performed By: #### L IVR, 2131-10, CBCA, 32170-8, 3016-3, 2498- 4, 2731-8, HA1C #### [facility] ([id number]) [address], [address] [place] [address] Bilirubin [Mass/Vol] 0.3 mg/dL Normal 0.3-1.2 [facility] Comment on above: Performed By: #### L IVR, 2131-10, CBCA, 08756-1, 3016-3, 2498- 4, 2731-8, HA1C #### [facility] ([id number]) [address], [address] [place] [address] Bilirubin.direct [Mass/Vol] 0.0 mg/dL Normal 0.0-0.4 [facility] Comment on above: Performed By: #### L IVR, 2131-10, CBCA, 61930-2, 3016-3, 2498- 4, 2731-8, HA1C #### [facility] ([id number]) [address], [address] [place] [address] Protein [Mass/Vol] 6.6 g/dL Normal 6.0-8.0 [facility] Comment on above: Performed By: #### L IVR, 2131-10, CBCA, 86212-1, 3016-3, 2498- 4, 2731-8, HA1C #### [facility] ([id number]) [address] [place] [address] Parathyrin.intact [Mass/Vol] on 12-02-2023 PTH INTACT 23 pg/mL Normal 12-88 [facility] Comment on above: Performed By: #### L IVR, 2131-10, CBCA, 32913-5, 3016-3, 2498- 4, 2731-8, HA1C #### [facility] ([id number]) [address] [facility] [place] [address] TSH Qnon 12-02-2023 TSH 1.50 uIU/mL Normal 0.49-4.67 [facility] Comment on above: Performed By: #### L IVR, 2131-10, CBCA, 59921-1, 3016-3, 2498- 4, 2731-8, HA1C #### [facility] ([id number]) [address] [facility] [place] [address] VITAMIN B12on 12-02-2023 Cobalamin (Vitamin B12) [Mass/Vol] 541 pg/mL Normal 180-914 [facility] Comment on above: Performed By: #### L IVR, 2131-10, CBCA, 27001-4, 3016-3, 2498- 4, 2731-8, HA1C #### [facility] ([id number]) [address] [facility] [place] [address] Vitamin D+Metabolites [Mass/ Vol]on 12-02-2023 VITAMIN D 25 HYD TOT 24.3 ng/mL Low 30-100 [facility] Comment on above: Result Comment: Vitamin D status 25 [place] Vitamin D Deficiency <20 ng/mL Insufficiency 20-29 ng/mL Sufficiency 30-100 ng/mL Toxicity >100 ng/mL NOTE: A pediatric reference range has not been established by the transcription typist of this kit. The [place] [employer] recommends a Vitamin D level of = or >20ng/mL in infants and children. Performed By: #### L IVR, 2132-9, CBCA, 60145-7, 3016-3, 2498-4, 2731-8, HA1C #### [facility] ([id number]) [address] [place] [address], [address] [place] [address] CBC with Diffon 08-05-2023 Abs. Basophil <0.03 Normal 0.00-0.20 [facility] Comment on above: Performed By: #### T DANIEL, CDP #### [address] [place] [address] Courtesy Clerk: Mauricio Irby MD #### LIPR, FT3, INSU, T4, FE, GLYHGB #### [place] [address] Courtesy Clerk: Casa Medrano MD Abs.Imm.Granulocy te 0.05 k/uL Normal 0.00-0.30 [facility] Comment on above: Performed By: #### T DANIEL, CDP #### [address] [place] 8[address]83 Courtesy Clerk: Mauricio Irby MD #### LIPR, FT3, INSU, T4, FE, GLYHGB #### [place] [id number] Courtesy Clerk: Casa Medrano MD Abs.Neutrophil (Seg) 7.71 k/uL Normal 1.50-8.10 [facility] Comment on above: Performed By: #### T DANIEL, CDP #### [address] [place] [address] Courtesy Clerk: Mauricio Irby MD #### LIPR, FT3, INSU, T4, FE, GLYHGB #### [address] [id number] Courtesy Clerk: Casa Medrano MD Basophils/100 WBC (Bld) 0 % Normal 0-2 [facility] Comment on above: Performed By: #### T SH, CDP #### [facility] [address] [place] [address] [place], [place] [id number] Courtesy Clerk: Mauricio Irby MD #### LIPR, FT3, INSU, T4, FE, GLYHGB #### [place] [address] [place], [place] 7[address]27[address] Courtesy Clerk: Casa Medrano MD Eosinophils (Bld) [#/Vol] 0.10 10*3/uL Normal 0.00-0.44 [facility] Comment on above: Performed By: #### T SH, CDP #### [address] [place] 8[address]83 Courtesy Clerk: Mauricio Irby MD #### LIPR, FT3, INSU, T4, FE, GLYHGB #### [address] [id number] Courtesy Clerk: Casa Medrano MD Eosinophils/100 WBC (Bld) 1 % Normal 1-4 [facility] Comment on above: Performed By: #### T SH, CDP #### [address] [place] [address]83 Courtesy Clerk: Mauricio Irby MD #### LIPR, FT3, INSU, T4, FE, GLYHGB #### [place] [address] [place], [place] [id number] Courtesy Clerk: Casa Medrano MD Erythrocyte distribution width (RBC) [Ratio] 12.5 % Normal 11.8-14.4 [facility] Comment on above: Performed By: #### T SH, CDP #### [facility] [address] [place] [address] [place] [address] Courtesy Clerk: Mauricio Irby MD #### LIPR, FT3, INSU, T4, FE, GLYHGB #### [place] [address] [place], [place] 7785[address] Courtesy Clerk: Casa Medrano MD Hematocrit (Bld) [Volume fraction] 45.1 % Normal 36.3-47.1 [facility] Comment on above: Performed By: #### T SH, CDP #### [address] [place] 8[address]83 Courtesy Clerk: Mauricio Irby MD #### LIPR, FT3, INSU, T4, FE, GLYHGB #### [place] [address] Courtesy Clerk: Casa Medrano MD Hemoglobin (Bld) [Mass/Vol] 15.2 g/dL High 11.9-15.1 [facility] Comment on above: Performed By: #### T SH, CDP #### [address] [place] [address]83 Courtesy Clerk: Mauricio Irby MD #### LIPR, FT3, INSU, T4, FE, GLYHGB #### [place] [address] Courtesy Clerk: Casa Medrano MD Immature granulocytes/100 WBC (Bld) 1 % High 0 [facility] Comment on above: Performed By: #### T SH, CDP #### [address] [place] [phone] Courtesy Clerk: Mauricio Irby MD #### LIPR, FT3, INSU, T4, FE, GLYHGB #### [place] [address] Courtesy Clerk: Casa Medrano MD Lymphocytes (Bld) [#/Vol] 2.55 10*3/uL Normal 1.10-3.70 [facility] Comment on above: Performed By: #### T SH, CDP #### [address] [place] [phone] Courtesy Clerk: Mauricio Irby MD #### LIPR, FT3, INSU, T4, FE, GLYHGB #### [address] [phone] Courtesy Clerk: Casa Medrano MD Lymphocytes/100 WBC (Bld) 23 % Low 24-43 [facility] Comment on above: Performed By: #### T SH, CDP #### [address] [place] [address] Courtesy Clerk: Mauricio Irby MD #### LIPR, FT3, INSU, T4, FE, GLYHGB #### [address] [id number] Courtesy Clerk: Casa Medrano MD MCH (RBC) [Entitic mass] 31.6 pg Normal 25.2-33.5 [facility] Comment on above: Performed By: #### T SH, CDP #### [address] [place] [phone] Courtesy Clerk: Mauricio Irby MD #### LIPR, FT3, INSU, T4, FE, GLYHGB #### [address] [id number] Courtesy Clerk: Casa Medrano MD MCHC (RBC) [Mass/Vol] 33.7 g/dL Normal 28.4-34.8 [facility] Comment on above: Performed By: #### T SH, CDP #### [address] [place] [address] Courtesy Clerk: Mauricio Irby MD #### LIPR, FT3, INSU, T4, FE, GLYHGB #### [place] [address] [place], [place] [id number] Courtesy Clerk: Casa Medrano MD MCV (RBC) [Entitic vol] 93.8 fL Normal 82.6-102.9 [facility] Comment on above: Performed By: #### T SH, CDP #### [facility] [address] [place] [address] [place] [place] [phone] Courtesy Clerk: Mauricio Irby MD #### LIPR, FT3, INSU, T4, FE, GLYHGB #### [address] [id number] Courtesy Clerk: Casa Medrano MD Monocytes (Bld) [#/Vol] 0.60 10*3/uL Normal 0.10-1.20 [facility] Comment on above: Performed By: #### T SH, CDP #### [address] [place] [phone] Courtesy Clerk: Mauricio Irby MD #### LIPR, FT3, INSU, T4, FE, GLYHGB #### [address] [id number] Courtesy Clerk: Casa Medrano MD Monocytes/100 WBC (Bld) 5 % Normal 3-12 [facility] Comment on above: Performed By: #### T SH, CDP #### [address] [place] [phone] Courtesy Clerk: Mauricio Irby MD #### LIPR, FT3, INSU, T4, FE, GLYHGB #### [address] [phone] Courtesy Clerk: Casa Medrano MD Neutrophil (Seg) 70 % High 36-65 [facility] Comment on above: Performed By: #### T SH, CDP #### [address] [place] [phone] Courtesy Clerk: Mauricio Irby MD #### LIPR, FT3, INSU, T4, FE, GLYHGB #### [address] [phone] Courtesy Clerk: Casa Medrano MD NRBC Automated 0.0 per 100 WBC Normal 0.0 [facility] Comment on above: Performed By: #### T SH, CDP #### [address] [place] [phone] Courtesy Clerk: Mauricio Irby MD #### LIPR, FT3, INSU, T4, FE, GLYHGB #### [place] [address] [place], [place] 1356208 Courtesy Clerk: Casa Medrano MD Platelet mean volume (Bld) [Entitic vol] 9.2 fL Normal 8.1-13.5 [facility] Comment on above: Performed By: #### T SH, CDP #### [address] [place] [phone] Courtesy Clerk: Mauricio Irby MD #### LIPR, FT3, INSU, T4, FE, GLYHGB #### [address] [id number] Courtesy Clerk: Casa Medrano MD Platelets (Bld) [#/Vol] 297 10*3/uL Normal 138-453 [facility] Comment on above: Performed By: #### T SH, CDP #### [address] [place] [phone] Courtesy Clerk: Mauricio Irby MD #### LIPR, FT3, INSU, T4, FE, GLYHGB #### [place] [address] [place], [place] [phone] Courtesy Clerk: Casa Medrano MD RBC (Bld) [#/Vol] 4.81 10*6/uL Normal 3.95-5.11 [facility] Comment on above: Performed By: #### T SH, CDP #### [address] [place], [place] [id number] Courtesy Clerk: Mauricio Irby MD #### LIPR, FT3, INSU, T4, FE, GLYHGB #### [place] [address] [place] [address] Courtesy Clerk: Casa Medrano MD WBC (Bld) [#/Vol] 11.0 10*3/uL Normal 3.5-11.3 [facility] Comment on above: Performed By: #### T SH, CDP #### [address] [place], [place] 0112[address]83 Courtesy Clerk: Mauricio Irby MD #### LIPR, FT3, INSU, T4, FE, GLYHGB #### [address] [address] Courtesy Clerk: Casa Medrano MD Hemoglobin A1Con 6 Glucose [Mass/Vol] 100 mg/dL Normal [facility] Comment on above: Result Comment: The ADA and AACC recommend providing the estimated average glucose result to permit better patient understanding of their HBA1c result. Performed By: #### C DP LIP, CP #### [address] [place] [address] Courtesy Clerk: Mauricio Irby MD HbA1c (Bld) [Mass fraction] 5.1 % Normal 4.0-6.0 [facility] Comment on above: Performed By: #### C DP LIP, CP #### [address] [place] [address] Courtesy Clerk: Mauricio Irby MD Insulinon 7103 Insulin 19.2 mU/L Normal [facility] Comment on above: Performed By: #### T SH, CDP #### [address] [place] [address] Courtesy Clerk: Mauricio Irby MD #### LIPR, FT3, INSU, T4, FE, GLYHGB #### [address] [id number] Courtesy Clerk: Casa Medrano MD Reference Range Normal [facility] Comment on above: Result Comment: Fast in.6-24.9 30 min: 20-112 60 min: 29-88 90 min: 26-84 120 min: 22-79 Performed By: #### T SH, CDP #### [facility] [address] [place] [address] Dr[address] [place], [place] [id number] Courtesy Clerk: Mauricio Irby MD #### LIPR, FT3, INSU, T4, FE, GLYHGB #### [address] [address] Courtesy Clerk: Casa Medrano MD Ironon 08-05-2023 Iron [Mass/Vol] 68 ug/dL Normal 37-145 [facility] Comment on above: Performed By: #### C DP, LIP, CP #### [address] [place] [id number] Courtesy Clerk: Mauricio Irby MD Lipid Profileon 08-05-2023 Cholesterol [Mass/Vol] 171 mg/dL Normal 0-199 [facility] Comment on above: Result Comment: Cholesterol Guidelines: <200 Desirable 200-240 Borderline >240 Undesirable Performed By: #### T SH, CDP #### [address] [place], [place] [phone] Courtesy Clerk: Mauricio Irby MD #### LIPR, FT3, INSU, T4, FE, GLYHGB #### [address] [id number] Courtesy Clerk: Casa Medrano MD Cholesterol in HDL [Mass/Vol] 52 mg/dL Normal >40 [facility] Comment on above: Result Comment: HDL Guidelines: <40 Undesirable 40-59 Borderline >59 Desirable Performed By: #### T SH, CDP #### [facility] [address] [place] [address] [place] [address] Courtesy Clerk: Mauricio Irby MD #### LIPR, FT3, INSU, T4, FE, GLYHGB #### [facility] [employer] [address] [place], [place] [phone] Courtesy Clerk: Casa Medrano MD Cholesterol in LDL [Mass/Vol] 100 mg/dL Normal 0-100 [facility] Comment on above: Result Comment: LDL Guidelines: <100 Desirable 100-129 Near to/above Desirable 130-159 Borderline >159 Undesirable Direct (measured) LDL and calculated LDL are not interchangeable tests. Performed By: #### T SH, CDP #### [facility] [address] [place] [address] Dr[address] [place], [place] [phone] Courtesy Clerk: Mauricio Irby MD #### LIPR, FT3, INSU, T4, FE, GLYHGB #### [address] [place] [place], [place] [id number] Courtesy Clerk: Casa Medrano MD Cholesterol in VLDL [Mass/Vol] 19 mg/dL Normal [facility] Comment on above: Performed By: #### T SH, CDP #### [address] [place], [place] [phone] Courtesy Clerk: Mauricio Irby MD #### LIPR, FT3, INSU, T4, FE, GLYHGB #### [facility] [employer] [facility] [place], [place] [phone] Courtesy Clerk: Casa Medrano MD Cholesterol.total /Cholesterol in HDL [Mass ratio] 3.0 {ratio} Normal [facility] Comment on above: Performed By: #### T SH, CDP #### [facility] [address] [place] [address] Dr[address] [place], [place] [phone] Courtesy Clerk: Mauricio Irby MD #### LIPR, FT3, INSU, T4, FE, GLYHGB #### [facility] [employer] [facility] [place], [place] [phone] Courtesy Clerk: Casa Medrano MD Triglyceride [Mass/Vol] 93 mg/dL Normal <150 [facility] Comment on above: Result Comment: Triglyceride Guidelines: <150 Desirable 150-199 Borderline 200-499 High >499 Very high Based on AHA Guidelines for fasting triglyceride, November 2011. Performed By: #### T SH, CDP #### [address] [place] [address] Courtesy Clerk: Mauricio Irby MD #### LIPR, FT3, INSU, T4, FE, GLYHGB #### [address] [phone] Courtesy Clerk: Casa Medrano MD T3, Freeon 08-05-2023 Free T3 [Mass/Vol] 2.90 pg/mL Normal 2.00-4.40 [facility] Comment on above: Performed By: #### C DP, LIP, CP #### [address] [place] [address] Courtesy Clerk: Mauricio Irby MD Thyroid Stim. Horm.on 2023 Thyroid Stim. Horm. 1.33 uIU/mL Normal 0.30-5.00 [facility] Comment on above: Performed By: #### T SH, CDP #### [address] [place] [address] Courtesy Clerk: Mauricio Irby MD #### LIPR, FT3, INSU, T4, FE, GLYHGB #### [address] [phone] Courtesy Clerk: Casa Medrano MD Thyroxine T4on 7 T4 [Mass/Vol] 9.9 ug/dL Normal 4.5-11.7 [facility] Comment on above: Performed By: #### T SH, CDP #### [address] [place] [address] Courtesy Clerk: Mauricio Irby MD #### LIPR, FT3, INSU, T4, FE, GLYHGB #### [address] [phone] Courtesy Clerk: Casa Medrano MD Cult,Urineon 10-28-2022 Cult,Urine Specimen Description .CLEAN CATCH URINE Culture NO SIGNIFICANT GROWTH Report Status FINAL 10/28/2022 Normal [facility] Comment on above: Performed By: #### C DP, JANIE, CP #### [facility] [address] [place], [place] [phone] Courtesy Clerk: Mauricio Irby MD CBC with Auto Differentialon 10-27-2022 Basophils (Bld) [#/Vol] 0.03 10*3/uL [facility] Basophils/100 WBC (Bld) 0 % 0 - 2 % [facility] Eosinophils (Bld) [#/Vol] 0.07 10*3/uL [facility] Eosinophils/100 WBC (Bld) 1 % 1 - 4 % [facility] Erythrocyte distribution width (RBC) [Ratio] 12.6 % 11.8 - 14.4 % [facility] Hematocrit (Bld) [Volume fraction] 43.7 % 36.3 - 47.1 % [facility] Hemoglobin (Bld) [Mass/Vol] 14.3 g/dL 11.9 - 15.1 g/dL [facility] Immature granulocytes (Bld) [#/Vol] 0.04 10*3/uL [facility] Immature granulocytes/100 WBC (Bld) 0 % 0 [facility] Interpretation and review of laboratory results Abnormal [facility] Lymphocytes/100 WBC (Bld) 27 % 24 - 43 % [facility] Lymphocytes/100 WBC (Bld) 2.50 % [facility] MCH (RBC) [Entitic mass] 31.2 pg 25.2 - 33.5 pg [facility] MCHC (RBC) [Mass/Vol] 32.7 g/dL 28.4 - 34.8 g/dL [facility] MCV (RBC) [Entitic vol] 95.4 fL 82.6 - 102.9 fL [facility] Monocytes/100 WBC (Bld) 5 % 3 - 12 % [facility] Monocytes/100 WBC (Bld) 0.44 % [facility] Neutrophils/100 WBC (Bld) 67 % High 36 - 65 % [facility] Nucleated RBC/100 WBC (Bld) [Ratio] 0.0 % 0.0 per 100 WBC [facility] Platelet mean volume (Bld) [Entitic vol] 8.9 fL 8.1 - 13.5 fL [facility] Platelets (Bld) [#/Vol] 264 10*3/uL [facility] RBC (Bld) [#/Vol] 4.58 10*6/uL 3.95 - 5.1 1 m/uL [facility] Segmented neutrophils/100 WBC (Bld) 6.32 % [facility] WBC other (Bld) [#/Vol] 9.4 [facility] CBC with Diffon 10-27-2022 Abs. Basophil 0.03 k/uL Normal 0.00-0.20 [facility] Comment on above: Performed By: #### C DP LIP, CP #### [address] [place] [phone] Courtesy Clerk: Mauricio Irby MD Abs.Imm.Granulocy te 0.04 k/uL Normal 0.00-0.30 [facility] Comment on above: Performed By: #### C DP LIP, CP #### [address] [place] [phone] Courtesy Clerk: Mauricio Irby MD Abs.Neutrophil (Seg) 6.32 k/uL Normal 1.50-8.10 [facility] Comment on above: Performed By: #### C DP, LIP, CP #### [address] [place] [phone] Courtesy Clerk: Mauricio Irby MD Basophils/100 WBC (Bld) 0 % Normal 0-2 [facility] Comment on above: Performed By: #### C DP, LIP, CP #### [address] [place], [place] [phone] Courtesy Clerk: Mauricio Irby MD Eosinophils (Bld) [#/Vol] 0.07 10*3/uL Normal 0.00-0.44 [facility] Comment on above: Performed By: #### C DP, LIP, CP #### [facility] [address] [place], [place] [address] Courtesy Clerk: Mauricio Irby MD Eosinophils/100 WBC (Bld) 1 % Normal 1-4 [facility] Comment on above: Performed By: #### C DP, LIP, CP #### [address] [place] [address] Courtesy Clerk: Mauricio Irby MD Erythrocyte distribution width (RBC) [Ratio] 12.6 % Normal 11.8-14.4 [facility] Comment on above: Performed By: #### C JAMES LIP, CP #### [address] [place], [place] [address] Courtesy Clerk: Mauricio Irby MD Hematocrit (Bld) [Volume fraction] 43.7 % Normal 36.3-47.1 [facility] Comment on above: Performed By: #### C DP LIP, CP #### [address] [place], [place] [address] Courtesy Clerk: Mauricio Irby MD Hemoglobin (Bld) [Mass/Vol] 14.3 g/dL Normal 11.9-15.1 [facility] Comment on above: Performed By: #### C DP LIP, CP #### [address] [place], [facility]83 Courtesy Clerk: Mauricio Irby MD Immature granulocytes/100 WBC (Bld) 0 % Normal 0 [facility] Comment on above: Performed By: #### C DP LIP, CP #### [address] [place], [facility]83 Courtesy Clerk: Mauricio Irby MD Lymphocytes (Bld) [#/Vol] 2.50 10*3/uL Normal 1.10-3.70 [facility] Comment on above: Performed By: #### C JANIE RAMIREZ, CP #### [facility] [address] [place] [address] Courtesy Clerk: Mauricio Irby MD Lymphocytes/100 WBC (Bld) 27 % Normal 24-43 [facility] Comment on above: Performed By: #### C JAMES LIP, CP #### [facility] [address] [place], [facility]83 Courtesy Clerk: Mauricio Irby MD MCH (RBC) [Entitic mass] 31.2 pg Normal 25.2-33.5 [facility] Comment on above: Performed By: #### C JANIE RAMIREZ, CP #### [address] [place], [place] [address] Courtesy Clerk: Mauricio Irby MD MCHC (RBC) [Mass/Vol] 32.7 g/dL Normal 28.4-34.8 [facility] Comment on above: Performed By: #### C JANIE RAMIREZ, CP #### [address] [place], [facility]83 Courtesy Clerk: Mauricio Irby MD MCV (RBC) [Entitic vol] 95.4 fL Normal 82.6-102.9 [facility] Comment on above: Performed By: #### C JANIE RAMIREZ, CP #### [address] [place], [facility]83 Courtesy Clerk: Mauricio Irby MD Monocytes (Bld) [#/Vol] 0.44 10*3/uL Normal 0.10-1.20 [facility] Comment on above: Performed By: #### C JAMES LIP, CP #### [address] [place], [place] 1259083 Courtesy Clerk: Mauricio Irby MD Monocytes/100 WBC (Bld) 5 % Normal 3-12 [facility] Comment on above: Performed By: #### C JANIE RAMIREZ, CP #### [facility] [address] [place] [address] Courtesy Clerk: Mauricio Irby MD Neutrophil (Seg) 67 % High 36-65 [facility] Comment on above: Performed By: #### C JAMES LIP, CP #### [facility] [address] [place], [place] [address] Courtesy Clerk: Mauricio Irby MD NRBC Automated 0.0 per 100 WBC Normal 0.0 [facility] Comment on above: Performed By: #### C JANIE RAMIREZ, CP #### [facility] [address] [place], [facility]83 Courtesy Clerk: Mauricio Irby MD Platelet mean volume (Bld) [Entitic vol] 8.9 fL Normal 8.1-13.5 [facility] Comment on above: Performed By: #### C JANIE RAMIREZ, CP #### [address] [place], [place] [address] Courtesy Clerk: Mauricio Irby MD Platelets (Bld) [#/Vol] 264 10*3/uL Normal 138-453 [facility] Comment on above: Performed By: #### C JANIE RAMIREZ, CP #### [address] [place], [facility]83 Courtesy Clerk: Mauricio Irby MD RBC (Bld) [#/Vol] 4.58 10*6/uL Normal 3.95-5.11 [facility] Comment on above: Performed By: #### C JANIE RAMIREZ, CP #### [facility] [address] [place], [place] 2753383 Courtesy Clerk: Mauricio Irby MD WBC (Bld) [#/Vol] 9.4 10*3/uL Normal 3.5-11.3 [facility] Comment on above: Performed By: #### C JAMES, JANIE, CP #### [facility] [address] [place] [address] Courtesy Clerk: Mauricio Irby MD CT ABDOMEN PELVIS [...] Ronni Vaughn MD 10/27/22 Final result Normal [facility] CT ABDOMEN PELVIS W IV CONTR AST Additional Contrast? Noneon 10-27-2022 No acute abnormality identified. [facility] CONSOLIDATED EXAMINATION: CT OF THE ABDOMEN [...] findings do not require dedicated imaging follow-up. [facility] Ronni Villareal MD - 10/27/2022 EXAMINATION: CT [...] imaging follow-up. IMPRESSION: No acute abnormality identified. [facility] Radiology Study observation (narrative) [facility] CT ABDOMEN PELVIS W IV CONTR AST Additional Contrast? NoneOrdered By: Ronni Vaughn on 10-27-2022 [facility] Work Phone: Comp Metabolic Profon 2022 Albumin [Mass/Vol] 4.0 g/dL Normal 3.5-5.2 [facility] Comment on above: Performed By: #### C JAMES, JANIE, CHELY #### [facility] [address] [place], [place] 2885583 Courtesy Clerk: Mauricio Irby MD Albumin/Glob Ratio 1.1 Normal 1.0-2.5 [facility] Comment on above: Performed By: #### C DP, LIP, CP #### [facility] [address] [place], [place] [phone] Courtesy Clerk: Mauricio Irby MD Alkaline Phos 82 U/L Normal 35-104 [facility] Comment on above: Performed By: #### C DP, LIP, CP #### [facility] [address] [place], [place] 0731383 Courtesy Clerk: Mauricio Irby MD ALT [Catalytic activity/Vol] 11 U/L Normal 5-33 [facility] Comment on above: Performed By: #### C DP LIP, CP #### [facility] [address] [place], [place] 8574683 Courtesy Clerk: Mauricio Irby MD Anion gap [Moles/Vol] 8 mmol/L Low 9-17 [facility] Comment on above: Performed By: #### C DP, LIP, CP #### [facility] [address] [place], [place] 0028583 Courtesy Clerk: Mauricio Irby MD AST [Catalytic activity/Vol] 12 U/L Normal <32 [facility] Comment on above: Performed By: #### C DP, LIP, CP #### [facility] [address] [place], [place] 8655483 Courtesy Clerk: Mauricio Irby MD Bilirubin [Mass/Vol] 0.2 mg/dL Low 0.3-1.2 [facility] Comment on above: Performed By: #### C DP, LIP, CP #### [facility] [address] [place], [place] 6677883 Courtesy Clerk: Mauricio Irby MD BUN/CRE Ratio 11 Normal 9-20 [facility] Comment on above: Performed By: #### C JAMES LIP, CP #### [facility] [address] [place], [place] 1232983 Courtesy Clerk: Mauricio Irby MD Calcium [Mass/Vol] 9.2 mg/dL Normal 8.6-10.4 [facility] Comment on above: Performed By: #### C JAMES LIP, CP #### [facility] [address] [place], [place] 8565183 Courtesy Clerk: Mauricio Irby MD Chloride [Moles/Vol] 102 mmol/L Normal 98-107 [facility] Comment on above: Performed By: #### C JAMES LIP, CP #### [facility] [address] [place], [place] 2688583 Courtesy Clerk: Mauricio Irby MD CO2 [Moles/Vol] 27 mmol/L Normal 20-31 [facility] Comment on above: Performed By: #### C JAMES LIP, CP #### [facility] [address] [place], [place] 7239483 Courtesy Clerk: Mauricio Irby MD Creatinine [Mass/Vol] 0.7 mg/dL Normal 0.5-0.9 [facility] Comment on above: Performed By: #### C JAMES LIP, CP #### [facility] [address] [place], [place] 0035083 Courtesy Clerk: Mauricio Irby MD GFR/1.73 sq M.predicted among non-blacks MDRD (S/P/Bld) [Vol rate/Area] mL/min/{1.73_m2} Normal >60 [facility] Comment on above: Result Comment: These [...] By: #### C JANIE RAMIREZ, CP #### [facility] [address] [place] [address] Courtesy Clerk: Mauricio Irby MD Glucose [Mass/Vol] 134 mg/dL High 70-99 [facility] Comment on above: Performed By: #### C JANIE RAMIREZ, CP #### [facility] [address] [place], [place] 1097283 Courtesy Clerk: Mauricio Irby MD Potassium [Moles/Vol] 4.1 mmol/L Normal 3.7-5.3 [facility] Comment on above: Performed By: #### C JANIE RAMIREZ, CP #### [address] [place], [place] 4072183 Courtesy Clerk: Mauricio Irby MD Protein [Mass/Vol] 7.7 g/dL Normal 6.4-8.3 [facility] Comment on above: Performed By: #### C JANIE RAMIREZ, CP #### [address] [place], [place] 9385383 Courtesy Clerk: Mauricio Irby MD Sodium [Moles/Vol] 137 mmol/L Normal 135-144 [facility] Comment on above: Performed By: #### C JANIE RAMIREZ, CP #### [facility] [address] [place] [address] Dr. [place], [place] 0663483 Courtesy Clerk: Mauricio Irby MD Urea nitrogen [Mass/Vol] 8 mg/dL Normal 6-20 [facility] Comment on above: Performed By: #### C JANIE RAMIREZ, CP #### [facility] [address] [place] [address] Dr. [place], [place] [phone] Courtesy Clerk: Mauricio Irby MD Comprehensive Metabolic Pane [facility] 10-27-2022 Albumin [Mass/Vol] 4.0 g/dL 3.5 - 5.2 g/dL [facility] Albumin/Globulin [Mass ratio] 1.1 {ratio} 1.0 - 2.5 [facility] ALP [Catalytic activity/Vol] 82 U/L 35 - 104 U/L [facility] ALT [Catalytic activity/Vol] 11 U/L 5 - 33 U/L [facility] Anion gap [Moles/Vol] 8 mmol/L Low 9 - 17 mmol/L [facility] AST [Catalytic activity/Vol] 12 U/L NINF - 32 U/L [facility] Bilirubin [Mass/Vol] 0.2 mg/dL Low 0.3 - 1.2 mg/dL [facility] Calcium [Mass/Vol] 9.2 mg/dL 8.6 - 10.4 mg/dL [facility] Chloride [Moles/Vol] 102 mmol/L 98 - 107 mmol/L [facility] CO2 [Moles/Vol] 27 mmol/L 20 - 31 mmol/L [facility] Creatinine [Mass/Vol] 0.7 mg/dL 0.5 - 0.9 mg/dL [facility] GFR/1.73 sq M.predicted MDRD (S/P/Bld) [Vol rate/Area] - PINF [facility] Comment on above: These results are [...] 134 mg/dL High 70 - 99 mg/dL [facility] Potassium [Moles/Vol] 4.1 mmol/L 3.7 - 5.3 mmol/L [facility] Protein [Mass/Vol] 7.7 g/dL 6.4 - 8.3 g/dL [facility] Sodium [Moles/Vol] 137 mmol/L 135 - 144 mmol/L [facility] Urea nitrogen [Mass/Vol] 8 mg/dL 6 - 20 mg/dL [facility] Urea nitrogen/Creatini ne [Mass ratio] 11 mg/mg 9 - 20 [facility] Lactic Acidon 10-27-2022 Lactate (BldV) [Moles/Vol] 1.6 mmol/L 0.5 - 2.2 mmol/L [facility] Lactate [Moles/Vol] 1.6 mmol/L Normal 0.5-2.2 [facility] Comment on above: Performed By: #### C JANIE RAMIREZ, CP #### [facility] [address] [place] [address] Courtesy Clerk: Mauricio Irby MD Lipaseon 10-27-2022 Lipase [Catalytic activity/Vol] 67 U/L High 13 - 60 U/L [facility] Lipase [Catalytic activity/Vol] 67 U/L High 13-60 [facility] Comment on above: Performed By: #### C JANIE RAMIREZ, CP #### [facility] [address] [place] [address] Courtesy Clerk: Mauricio Irby MD No Panel Informationon 10-27 Interpretation and review of laboratory results Abnormal [facility] Urinalysis w/ Microon 2022 Bacteria 1+ Abnormal NONE [facility] Comment on above: Performed By: #### U AMIC #### [facility] [address] [place] [phone] Courtesy Clerk: Mauricio Irby MD Bilirubin, SemiQt,Ur Negative Normal NEG [facility] Comment on above: Performed By: #### U AMIC #### [facility] [address] [place] [address] Courtesy Clerk: Mauricio Irby MD Blood, Urine Negative Normal NEG [facility] Comment on above: Performed By: #### U AMIC #### [facility] [address] [place] [address] Courtesy Clerk: Mauricio Irby MD Clarity (U) Clear Normal CLEAR [facility] Comment on above: Performed By: #### U AMIC #### [facility] [address] [place] [address] Dr. [place], [place] [phone] Courtesy Clerk: Mauricio Irby MD Color (U) Yellow Normal YEL [facility] Comment on above: Performed By: #### U AMIC #### [facility] [address] [place] [address] Dr. [place], [place] [phone] Courtesy Clerk: Mauricio Irby MD Epithelial cells LM Ql (Urine sed) 10 TO 20 Normal 0-25 [facility] Comment on above: Performed By: #### U AMIC #### [facility] [address] [place] [address] Dr. [place], [place] [phone] Courtesy Clerk: Mauricio Irby MD Glucose Ql (U) Negative Normal NEG [facility] Comment on above: Performed By: #### U AMIC #### [facility] [address] [place] [address] Dr. [place], [place] [phone] Courtesy Clerk: Mauricio Irby MD Ketones Ql (U) Negative Normal NEG [facility] Comment on above: Performed By: #### U AMIC #### [facility] [address] [place] [address] Dr[address] [place], [place] [phone] Courtesy Clerk: Mauricio Irby MD Leukocyte esterase Test strip Ql (U) Negative Normal NEG [facility] Comment on above: Performed By: #### U AMIC #### [facility] [address] [place] [address] Dr. [place], [place] [phone] Courtesy Clerk: Mauricio Irby MD Nitrite,Ur Negative Normal NEG [facility] Comment on above: Performed By: #### U AMIC #### [facility] [address] [place] [address] Dr. [place], [place] [phone] Courtesy Clerk: Mauricio Irby MD PH,Ur 6.0 Normal 5.0-9.0 [facility] Comment on above: Performed By: #### U AMIC #### [facility] [address] [place] [address] Dr. [place], [place] [phone] Courtesy Clerk: Mauricio Irby MD Protein Ql (U) Negative Normal NEG [facility] Comment on above: Performed By: #### U AMIC #### [facility] [address] [place] [address] Dr[address] [place], [place] [phone] Courtesy Clerk: Mauricio Irby MD Spec. [place],Ur 1.010 Normal 1.010-1.020 [facility] Comment on above: Performed By: #### U AMIC #### [address] [place] [phone] Courtesy Clerk: Mauricio Irby MD Urine RBC's 0 TO 2 Normal 0-2 [facility] Comment on above: Performed By: #### U AMIC #### [address] [place], [place] [phone] Courtesy Clerk: Mauricio Irby MD Urine WBC's 0 TO 2 Normal 0-5 [facility] Comment on above: Performed By: #### U AMIC #### [address] [place], [place] 5444983 Courtesy Clerk: Mauricio Irby MD Urobilinogen,Ur Normal Normal 0.0-1.0 [facility] Comment on above: Performed By: #### U AMIC #### [address] [place], [place] [phone] Courtesy Clerk: Mauricio Irby MD Urinalysis with Microscopico n 10-27-2022 Bacteria LM Ql (Urine sed) 1+ Abnormal None [facility] Bilirubin Ql (U) Negative NEGATIVE [facility] Clarity (U) Clear Clear [facility] Color (U) Yellow Yellow [facility] Epithelial cells LM.HPF (Urine sed) [#/Area] 10 TO 20 [facility] Glucose Test strip (U) [Mass/Vol] Negative NEGATIVE mg/dL [facility] Hemoglobin Auto test strip Ql (U) Negative NEGATIVE [facility] Interpretation and review of laboratory results Abnormal [facility] Ketones (U) [Mass/Vol] Negative NEGATIVE mg/dL [facility] Leukocyte esterase Test strip Ql (U) Negative NEGATIVE [facility] Nitrite Ql (U) Negative NEGATIVE [facility] pH (U) 6.0 [pH] 5.0 - 9.0 [facility] Protein (U) [Mass/Vol] Negative NEGATIVE mg/dL [facility] RBC LM.HPF (Urine sed) [#/Area] 0 TO 2 [facility] Specific gravity (U) [Rel density] 1.010 1.010 - 1.020 [facility] Urobilinogen Qn (U) Normal 0.0 - 1.0 EU/dL [facility] WBC LM.HPF (Urine sed) [#/Area] 0 TO 2 [facility] XR ABD FLAT UP_PA Joyce 03-25 XR [...] MAURICIO LYONS Date: 2022-03-25 08:01 Normal [facility] AMYLASEon 03-24-2022 Amylase [Catalytic activity/Vol] 36 U/L Normal 25-115 [facility] Comment on above: Performed By: #### C DARION LOGAN LIPA #### [facility] [address] [place] [address] [address] Melecio Chadwick CBC AUTO DIFFon 03-24-2022 BASO # 0.0 103/ul Normal 0.0-0.1 [facility] Comment on above: Performed By: #### C BC #### [facility] [address] [place] [address] Dr. Melecio Chadwick Basophils/100 WBC (Bld) 0.2 % Normal 0.2-2.0 [facility] Comment on above: Performed By: #### C BC #### [facility] [address] [place] [address] Dr. Melecio Chadwick EO # 0.1 103/ul Normal 0.0-0.7 [facility] Comment on above: Performed By: #### C BC #### [facility] [address] [place] [address] Dr. Melecio Chadwick Eosinophils/100 WBC (Bld) 1.1 % Normal 0.9-7.0 [facility] Comment on above: Performed By: #### C BC #### [facility] [address] [place] [address] Dr. Melecio Chadwick Erythrocyte distribution width (RBC) [Ratio] 12.3 % Normal 11.0-15.0 [facility] Comment on above: Performed By: #### C BC #### [facility] [address] [place] [address] Dr. Melecio Chadwick Hematocrit (Bld) [Volume fraction] 42.5 % Normal 36.0-48.0 [facility] [facility] Comment on above: Performed By: #### C BC #### [facility] [address] [place] [address] Dr. Melecio Chadwick Hemoglobin (Bld) [Mass/Vol] 14.3 g/dL Normal 12.0-16.0 [facility] Comment on above: Performed By: #### C BC #### [facility] [address] [place] [address] Dr. Melecio Chadwick IG # 0.03 10e3/ul Normal 0.00-0.03 [facility] Comment on above: Performed By: #### C BC #### [facility] [address] [place] [address] Dr. Melecio Chadwick IG % 0.3 % Normal 0.0-0.5 [facility] Comment on above: Performed By: #### C BC #### [facility] [address] [place] [address] Dr. Melecio Chadwick LYMPH # 3.1 103/ul Normal 1.2-3.8 [facility] Comment on above: Performed By: #### C BC #### [facility] [address] [place] [address] Dr. Melecio Chadwick Lymphocytes/100 WBC (Bld) 29.8 % Normal 20.5-60.0 [facility] Comment on above: Performed By: #### C BC #### [facility] [address] [place] [address] Dr. Melecio Chadwick MANUAL DIFF REQ NO Normal [facility] Comment on above: Performed By: #### C BC #### [facility] [address] [place] [address] Dr. Melecio Chadwick MCH (RBC) [Entitic mass] 31.0 pg Normal 26.7-34.0 [facility] Comment on above: Performed By: #### C BC #### [facility] [address] [place] [address] Dr. Melecio Chadwick MCHC (RBC) [Mass/Vol] 33.6 g/dL Normal 29.9-35.2 [facility] Comment on above: Performed By: #### C BC #### [facility] [address] [place] [address] Dr. Melecio Chadwick MCV (RBC) [Entitic vol] 92.2 fL Normal 81.0-99.0 [facility] Comment on above: Performed By: #### C BC #### [facility] [address] [place] [address] Dr. Melecio Chadwick MONO # 0.6 103/ul Normal 0.3-0.8 [facility] Comment on above: Performed By: #### C BC #### [facility] [address] [place] [address] Dr. Melecio Chadwick Monocytes/100 WBC (Bld) 5.8 % Normal 1.7-12.0 [facility] Comment on above: Performed By: #### C BC #### [facility] [address] [place] [address] Dr. Melecio Chadwick NEUT # 6.5 103/ul Normal 1.4-6.5 [facility] Comment on above: Performed By: #### C BC #### [facility] [address] [place] [address] Dr. Melecio Chadwick Neutrophils/100 WBC (Bld) 62.8 % Normal 43.0-75.0 [facility] Comment on above: Performed By: #### C BC #### [facility] [address] [place] [address] Dr. Melecio Chadwick Platelet mean volume (Bld) [Entitic vol] 9.0 fL Critically low 9.5-13.5 [facility] Comment on above: Performed By: #### C BC #### [facility] [address] [place] [address] Dr. Melecio Chadwick PLT 268 103/ul Normal 150-450 [facility] Comment on above: Performed By: #### C BC #### [facility] [address] [place] [address] Dr. Melecio Chadwick RBC 4.61 106/ul Normal 4.20-5.40 [facility] Comment on above: Performed By: #### C BC #### [facility] [address] [place] [address] Dr. Melecio Chadwick WBC 10.4 103/ul Normal 4.0-11.0 [facility] Comment on above: Performed By: #### C BC #### [facility] [address] [place] [address] Dr. Melecio Chadwick LIPASEon 03-24-2022 Lipase [Catalytic activity/Vol] 114.0 U/L Normal 73.0-393.0 [facility] Comment on above: Performed By: #### C DARION LOGAN LIPA #### [facility] [address] [place] [address] Dr. Melecio Chadwick PROF 14(COMP METB)on 023 Albumin [Mass/Vol] 3.5 g/dL Normal 3.4-5.0 [facility] Comment on above: Performed By: #### C DARION LOGAN LIPA #### [facility] [address] [address] [address] Melecio Chadwick Albumin/Globulin [Mass ratio] 0.8 {ratio} Normal [facility] Comment on above: Performed By: #### C DARION LOGAN, LIPA #### [facility] [address] [address] [address] Melecio Chadwick ALP [Catalytic activity/Vol] 85 U/L Normal 46-116 [facility] Comment on above: Performed By: #### C DOREEN DARION, LIPA #### [facility] [address] [place] [address] Dr. Melecio Chadwick ALT [Catalytic activity/Vol] 21 U/L Normal 14-59 [facility] Comment on above: Performed By: #### C DOREEN DARION, LIPA #### [facility] [address] [place] [address] Dr. Melecio Chadwick Anion gap [Moles/Vol] 11.6 mmol/L Normal [facility] Comment on above: Performed By: #### C DOREEN DARION, LIPA #### [facility] [address] [place] [address] Dr. Melecio Chadwick AST [Catalytic activity/Vol] 15 U/L Normal 15-37 [facility] Comment on above: Performed By: #### C DOREEN DARION, LIPA #### [facility] [address] [place] [address] Dr. Melecio Chadwick Bilirubin [Mass/Vol] 0.3 mg/dL Normal 0.2-1.0 [facility] Comment on above: Performed By: #### C DOREEN DARION, LIPA #### [facility] [address] [place] [address] Dr. Melecio Chadwick Calcium [Mass/Vol] 8.8 mg/dL Normal 8.5-10.1 [facility] Comment on above: Performed By: #### C DOREEN DARION, LIPA #### [facility] [address] [place] [address] Dr. Melecio Chadwick Chloride [Moles/Vol] 102 mmol/L Normal 98-107 [facility] Comment on above: Performed By: #### C DARION LOGAN, LIPA #### [facility] [address] [address] [address] Melecio Chadwick CO2 [Moles/Vol] 28.5 mmol/L Normal 21.0-32.0 [facility] Comment on above: Performed By: #### C MP, DARION, LIPA #### [facility] [address] [address] [address] Melecio Chadwick Creatinine [Mass/Vol] 0.76 mg/dL Normal 0.55-1.02 [facility] Comment on above: Performed By: #### C MP, DARION, LIPA #### [facility] [address] [address] [address] Melecio Chadwick EGFR-AF PUERTO RICAN >60 Normal >=60 [facility] Comment on above: Performed By: #### C MP, DARION, LIPA #### [facility] [address] [address] [address] Melecio Chadwick EGFR-NON AF PUERTO RICAN >60 Normal >=60 [facility] Comment on above: Performed By: #### C MP, DARION, LIPA #### [facility] [address] [address] [address] Melecio Chadwick Globulin (S) [Mass/Vol] 4.2 g/dL Normal [facility] Comment on above: Performed By: #### C MP, DARION, LIPA #### [facility] [address] [address] [address] Melecio Chadwick Glucose [Mass/Vol] 97 mg/dL Normal 74-106 [facility] Comment on above: Performed By: #### C MP, DARION, LIPA #### [facility] [address] [address] [address] Melecio Chadwick Potassium [Moles/Vol] 4.1 mmol/L Normal 3.5-5.1 [facility] Comment on above: Performed By: #### C MP, DARION, LIPA #### [facility] [address] [address] [address] Melecio Chadwick Protein [Mass/Vol] 7.7 g/dL Normal 6.4-8.2 [facility] Comment on above: Performed By: #### C MP, DARION, LIPA #### [facility] [address] [place] [address] Dr. Melecio Chadwick Sodium [Moles/Vol] 138 mmol/L Normal 136-145 [facility] Comment on above: Performed By: #### C MP, DARION, LIPA #### [facility] [address] [place] [address] Dr. Melecio Chadwick Urea nitrogen [Mass/Vol] 9.0 mg/dL Normal 7.0-18.0 [facility] Comment on above: Performed By: #### C MP, DARION, LIPA #### [facility] [address] [place] [address] Dr. Melecio Chadwick Urea nitrogen/Creatini ne [Mass ratio] 11.8 mg/mg Normal [facility] Comment on above: Performed By: #### C MP, DARION, LIPA #### [facility] [address] [place] [address] Dr. Melecio Chadwick AMYLASEon 03-19-2022 Amylase [Catalytic activity/Vol] 44 U/L Normal 25-115 [facility] Comment on above: Performed By: #### A MY, CMP, LIPA #### [facility] [address] [place] [address] Dr. Melecio Chadwick CBC AUTO DIFFon 03-19-2022 BASO # 0.0 103/ul Normal 0.0-0.1 [facility] Comment on above: Performed By: #### C BC #### [facility] [address] [place] [address] Dr. Melecio Chadwick Basophils/100 WBC (Bld) 0.2 % Normal 0.2-2.0 [facility] Comment on above: Performed By: #### C BC #### [facility] [address] [place] [address] Dr. Melecio Chadwick EO # 0.1 103/ul Normal 0.0-0.7 [facility] Comment on above: Performed By: #### C BC #### [facility] [address] [place] [address] Dr. Melecio Chadwick Eosinophils/100 WBC (Bld) 1.5 % Normal 0.9-7.0 [facility] Comment on above: Performed By: #### C BC #### [facility] [address] [place] [address] Dr. Melecio Chadwick Erythrocyte distribution width (RBC) [Ratio] 12.4 % Normal 11.0-15.0 [facility] Comment on above: Performed By: #### C BC #### [facility] [address] [place] [address] Dr. Melecio Chadwick Hematocrit (Bld) [Volume fraction] 41.8 % Normal 36.0-48.0 [facility] Comment on above: Performed By: #### C BC #### [facility] [address] [place] [address] Dr. Melecio Chadwick Hemoglobin (Bld) [Mass/Vol] 13.2 g/dL Normal 12.0-16.0 [facility] Comment on above: Performed By: #### C BC #### [facility] [address] [place] [address] Dr. Melecio Chadwick IG # 0.02 10e3/ul Normal 0.00-0.03 [facility] Comment on above: Performed By: #### C BC #### [facility] [address] [place] [address] Dr. Melecio Chadwick IG % 0.2 % Normal 0.0-0.5 [facility] Comment on above: Performed By: #### C BC #### [facility] [address] [place] [address] Dr. Melecio Chadwick LYMPH # 3.3 103/ul Normal 1.2-3.8 [facility] Comment on above: Performed By: #### C BC #### [facility] [address] [place] [address] Dr. Melecio Chadwick Lymphocytes/100 WBC (Bld) 38.0 % Normal 20.5-60.0 [facility] Comment on above: Performed By: #### C BC #### [facility] [address] [place] [address] Dr. Melecio Chadwick MANUAL DIFF REQ NO Normal [facility] Comment on above: Performed By: #### C BC #### [facility] [address] [place] [address] Dr. Melecio Chdawick MCH (RBC) [Entitic mass] 30.9 pg Normal 26.7-34.0 [facility] Comment on above: Performed By: #### C BC #### [facility] [address] [place] [address] Dr. Melecio Chadwick MCHC (RBC) [Mass/Vol] 31.6 g/dL Normal 29.9-35.2 [facility] Comment on above: Performed By: #### C BC #### [facility] [address] [place] [address] Dr. Melecio Chadwick MCV (RBC) [Entitic vol] 97.9 fL Normal 81.0-99.0 [facility] Comment on above: Performed By: #### C BC #### [facility] [address] [place] [address] Dr. Melecio Chadwick MONO # 0.4 103/ul Normal 0.3-0.8 [facility] Comment on above: Performed By: #### C BC #### [facility] [address] [place] [address] Dr. Melecio Chadwick Monocytes/100 WBC (Bld) 4.6 % Normal 1.7-12.0 [facility] Comment on above: Performed By: #### C BC #### [facility] [address] [place] [address] Dr. Melecio Chadwick NEUT # 4.8 103/ul Normal 1.4-6.5 [facility] Comment on above: Performed By: #### C BC #### [facility] [address] [place] [address] Dr. Melecio Chadwick Neutrophils/100 WBC (Bld) 55.5 % Normal 43.0-75.0 [facility] Comment on above: Performed By: #### C BC #### [facility] [address] [place] [address] Dr. Melecio Chadwick Platelet mean volume (Bld) [Entitic vol] 9.7 fL Normal 9.5-13.5 [facility] Comment on above: Performed By: #### C BC #### [facility] [address] [place] [address] Dr. Melecio Chadwick PLT 258 103/ul Normal 150-450 [facility] Comment on above: Performed By: #### C BC #### [facility] [address] [place] [address] Dr. Melecio Chadwick RBC 4.27 106/ul Normal 4.20-5.40 [facility] Comment on above: Performed By: #### C BC #### [facility] [address] [place] [address] Dr. Melecio Chadwick WBC 8.7 103/ul Normal 4.0-11.0 [facility] Comment on above: Performed By: #### C BC #### [facility] [address] [place] [address] Dr. Melecio Chadwick LIPASEon 03-19-2022 Lipase [Catalytic activity/Vol] 119.0 U/L Normal 73.0-393.0 [facility] Comment on above: Performed By: #### A MY, CMP, LIPA #### [facility] [address] [place] [address] Dr. Melecio Chadwick PROF 14(COMP METB)on 023 Albumin [Mass/Vol] 3.2 g/dL Critically low 3.4-5.0 [facility] Comment on above: Performed By: #### A MY, CMP, LIPA #### [facility] [address] [place] [address] Dr. Melecio Chadwick Albumin/Globulin [Mass ratio] 0.9 {ratio} Normal [facility] Comment on above: Performed By: #### A MY, CMP, LIPA #### [facility] [address] [place] [address] Dr. Melecio Chadwick ALP [Catalytic activity/Vol] 76 U/L Normal 46-116 [facility] Comment on above: Performed By: #### A MY, CMP, LIPA #### [facility] [address] [address] [address] Melecio Chadwick ALT [Catalytic activity/Vol] 18 U/L Normal 14-59 [facility] Comment on above: Performed By: #### A MY, CMP, LIPA #### [facility] [address] [address] [address] Melecio Chadwick Anion gap [Moles/Vol] 11.6 mmol/L Normal [facility] Comment on above: Performed By: #### A MY, CMP, LIPA #### [facility] [address] [address] [address] Melecio Chadwick AST [Catalytic activity/Vol] 14 U/L Critically low 15-37 [facility] Comment on above: Performed By: #### A MY, CMP, LIPA #### [facility] [address] [place] [address] Dr. Melecio Chadwick Bilirubin [Mass/Vol] 0.2 mg/dL Normal 0.2-1.0 [facility] Comment on above: Performed By: #### A MY, CMP, LIPA #### [facility] [address] [address] [address] Melecio Chadwick Calcium [Mass/Vol] 7.9 mg/dL Critically low 8.5-10.1 [facility] Comment on above: Performed By: #### A MY, CMP, LIPA #### [facility] [address] [place] [address] Dr. Melecio Chadwick Chloride [Moles/Vol] 105 mmol/L Normal 98-107 [facility] Comment on above: Performed By: #### A MY, CMP, LIPA #### [facility] [address] [address] [address] Melecio Chadwick CO2 [Moles/Vol] 25.8 mmol/L Normal 21.0-32.0 [facility] Comment on above: Performed By: #### A MY, CMP, LIPA #### [facility] [address] [address] [address] Melecio Chadwick Creatinine [Mass/Vol] 0.67 mg/dL Normal 0.55-1.02 [facility] Comment on above: Performed By: #### A MY, CMP, LIPA #### [facility] [address] [address] [address] Melecio Chadwick EGFR-AF PUERTO RICAN >60 Normal >=60 [facility] Comment on above: Performed By: #### A MY, CMP, LIPA #### [facility] [address] [address] [address] Melecio Chadwick EGFR-NON AF PUERTO RICAN >60 Normal >=60 [facility] Comment on above: Performed By: #### A MY, CMP, LIPA #### [facility] [address] [address] [address] Melecio Chadwick Globulin (S) [Mass/Vol] 3.6 g/dL Normal [facility] Comment on above: Performed By: #### A MY, CMP, LIPA #### [facility] [address] [address] [address] Melecio Chadwick Glucose [Mass/Vol] 95 mg/dL Normal 74-106 [facility] Comment on above: Performed By: #### A MY, CMP, LIPA #### [facility] [address] [address] [address] Melecio Chadwick Potassium [Moles/Vol] 3.4 mmol/L Critically low 3.5-5.1 [facility] Comment on above: Performed By: #### A MY, CMP, LIPA #### [facility] [address] [address] [address] Melecio Chadwick Protein [Mass/Vol] 6.8 g/dL Normal 6.4-8.2 [facility] Comment on above: Performed By: #### A MY, CMP, LIPA #### [facility] [address] [address] [address] Melecio Chadwick Sodium [Moles/Vol] 139 mmol/L Normal 136-145 [facility] Comment on above: Performed By: #### A MY, CMP, LIPA #### [facility] [address] [address] [address] Melecio Chadwick Urea nitrogen [Mass/Vol] 6.0 mg/dL Critically low 7.0-18.0 [facility] Comment on above: Performed By: #### A MY, CMP, LIPA #### [facility] [address] [place], [place] [address] Dr. Melecio Chadwick Urea nitrogen/Creatini ne [Mass ratio] 9.0 mg/mg Normal [facility] Comment on above: Performed By: #### A MY, CMP, LIPA #### [facility] [address] [place], [place] [address] Dr. Melecio Chadwick Intraoperative Noteon 2017 Intraoperative Note [id number]#[address] [place] [address] Intraoperative Noteon 2017 Intraoperative Note [id number]#[address] [place] [address] History and Physicalon 01-23 History and Physical [id number]#[address] [place] [address] Provider Orderson 01-23-2017 Protein [id number]#[address] [place] [address] Coding Summaryon 12-08-2016 Coding Summary CODING DATE: 017 [facility] STATUS: Home PAYOR: [employer] APC DESCRIPTION 5113 Level 3 Musculoskeletal Procedures ADMIT DX: REASON FOR VISIT DX: S83.242A Other tear of medial meniscus, current injury, left knee, initial encounter FINAL DX: PRINCIPAL: M22.42 Chondromalacia patellae, left knee SECONDARY: M94.9 Disorder of cartilage, unspecified PYMT PROC APC STAT DESCRIPTION DOCTOR NAME DATE 22294 5113 J1 Arthroscopy, knee, ARIES HARO 12/05/2016 [...] Tamanna Ambrocio Date Saved: 12/08/2016 03:51 pm [facility] Consent Formson 12-08-2016 Consent Forms [id number][facility] Instructions [id number]#[facility] Intra[facility] 2016 Intraoperative Note [id number][facility] PACU Recordon 7 MAGR PACU Record MAGR PACU Record [facility] Primary Physician: ARIES HARO Finalized Date/Time: 12/08/16 10:49:55 Pt. Name: TAMY WALLS/Sex: 1980 FEMALE Med Rec #: [id number] Physician: ARIES HARO Financial #: [id number] Pt. Type: D Room/Bed: / Admit/Disch: 12/05/16 [...] Signed By: Sana Jarvis RN 12/08/16 10:49 [facility] MAGR Preoperative Recordon 1 MAGR Preoperative Record MAGR Pre-Op Record Summary Primary Physician: ARIES HARO Finalized Date/Time: 12/08/16 10:20:04 Pt. Name: TAMY WALLS /Sex: 1980 FEMALE Med Rec #: [id number] Physician: ARIES HARO Financial #: [id number] Pt. Type: D Room/Bed: / Admit/Disch: 12/05/16 [...] Signed By: Marium Ledbetter RN 12/08/16 10:20 [facility] Medication Managementon 11-11 Medication Management [id number]#1.00OTGTIFF [facility] Telemetry Stripson 7 Telemetry Strips [id number]#1.00OTGTIFF [facility] Anesthesia Noteon 12-05-2016 Anesthesia Note Patient: RUFUS WALLS : 36 years Sex: FEMALE : [birth year]Associated Diagnoses: NoneAuthor: Bunny Briggs MDPostoperative InformationPost Operative Note: Operative Day.Anesthetic utilized: General.Health StatusAllergies:Allergic Reactions (All)Severity Not DocumentedDilaudid- Angio-oedema.Percocet 5/325- Nausea & vomiting.Problem list (past medical history):All ProblemsAnxiety / SNOMED CT 42755989 / ConfirmedPhysical ExaminationVS/MeasurementsV ital Signs (last 24 hrs) Last ChartedHeart Rate Peripheral H102 bpm (DEC 05 11:47)Resp Rate H 28 br/min (DEC 05:)SBP 133 mmHg (DEC 05:)DBP 87 mmHg (DEC 05:)SpO2 99 % (DEC 05:47)Review / ManagementCondition: Stable.AssessmentAnesthetic outcomeNo anesthetic complications noted.PlanTransfer/ Discharge: Patient can be discharged from PACU when criteria met.Condition good.[Electronically Signed on: 12/05/2016 12:07 EDT] Bunny Briggs MD[Verified on: 12/05/2016 12:07 EDT] Bunny Briggs MD [facility] Anesthesia Note Patient: RUFUS WALLS : [...] (past medical history):All ProblemsAnxiety / SNOMED CT 11494383 / ConfirmedHistoriesFamily History:No family history items have been selected or recorded.Procedure history:Hysterectomy (839433786) in 2014 at 33 Years.Comments:11/28/2016 10:07 - Shayy Sylvester RNpartialAppendectomy (360760654) in 2013 at 32 Years.Tubal ligation (723591488) in 2004 at 24 Years.Cholecystectomy (42326461) in 1999 at 19 Years.Ear care (488872218).Comments:2016 10:06 - Shayy Sylvester RNtubes [id number] History Alcohol Assessment Use: Never. Tobacco Assessment former smoker quit 2 yrs ago Tobacco Use:. Substance Abuse Assessment Substance use: Never..Social & Psychosocial IdmswxNxnptdu85/20/2017 Alcohol Use: NeverSubstance Abuse11/28/2016 Substance use: JpjxqUihhrto50/20/2017 Smoking tobacco use: former smoker quit 2 [...] on: 12/05/2016 10:25 EDT] Bunny Briggs MD [facility] MAGR Intraoperative Recordon 12-05-2016 MAGR Intraoperative Record MAGR Intra-Op Record Summary Primary Physician: ARIES HARO Finalized Date/Time: 12/05/16 11:52:54 Pt. Name: KAVITA TAMY M /Sex: 1980 FEMALE Med Rec #: [id number] Physician: ARIES HARO Financial #: [id number] Pt. Type: D Room/Bed: / Admit/Disch: 12/05/16 [...] Role Performed Surgeon - Primary Anesthesiologist of It Coordinator Record Time In 12/05/16 10:37:00 12/05/16 10:37:00 12/05/16 10:37:00 Time Out 12/05/16 11:30:00 12/05/16 11:48:00 12/05/16 11:48:00 Procedure Arthroscopy Knee(Left) Arthroscopy Knee(Left) Arthroscopy Knee(Left) Last Modified By: Leslie Tolentino RN, Stephanie RN Sauer, Stephanie RN 12/05/16 11:52:02 12/05/16 11:52:02 12/05/16 11:52:02 Entry 4 Entry 5 Entry 6 Case Attendee Ro Morrison RN, Leigh-Ann CST Nikolaus, Linda M Role Performed It Coordinator Clinical Admissions Manager Scrub Personnel Time In 12/05/16 10:37:00 12/05/16 [...] By: Leslie Tolentino RN 12/05/16 11:52 [facility] 12-05-2016 MAGR Postoperative Record MAGR Phase II Record Summary Primary Physician: ARIES HARO Finalized Date/Time: 12/05/16 14:50:11 Pt. Name: TAMY WALLS/Sex: 1980 FEMALE Med Rec #: [id number] Physician: ARIES HARO Financial #: [id number] Pt. Type: D Room/Bed: / Admit/Disch: 12/05/16 [...] express understanding of discharge instructions. General Comments: Jaclyn5Awayayo, aware, vital signs stable on O2 at 2 L min per NC. Respirations deep and regular. Complains of aching at left knee. Left Pedal pulse palpable at 2+. Ice pack in place left knee.Dressing dry and intact. Grand mother at bedside. 1320.....care assumed from gO Jarvis RN...report received 1402 - discharge instructions reviewed with patient, daughter, and grandmother. All verbalize understanding. Copy of instructions sent home with patient along with prescription for percocet......discharged per wheelchair to private auto driven by daughter for home Finalized By: Sana Jarvis RN Document Signatures Signed By: Sana Jarvis RN 12/05/16 14:50 [facility] Progress Note - Nurseon 10-2 Progress Note - Nurse Spoke with pt and informed her to be here at 9am and NPO after MN, she verbalizes understanding.[Electronical ly Signed on: 12/04/2016 09:42 EDT] Shayy Sylvester RN[Verified on: 12/04/2016 09:42 EDT] Shayy Sylvester RN [facility] Vital Signs Date Time Vital Sign Value Performing Clinician Eliseo perales 01-11-2024 11:00-0500 Body mass index (BMI) [Ratio] 39 kg/m2 Suresh PATEL Work Phone: [facility] 01-11-2024 11:00-0500 Body weight 115.67 kg Suresh PATEL Work Phone: [facility] 12-11-2023 08:51-0400 Body height 172.2 cm Suresh PATEL Work Phone: [facility] 12-11-2023 08:51-0400 Body mass index (BMI) [Ratio] 38.54 kg/m2 Suresh Juanjose PATEL Work Phone: [facility] [employer] [facility] 12-11-2023 08:51-0400 Body weight 114.31 kg Suresh SotoSalazar LD Work Phone: [facility] 11-27-2023 08:42-0400 Body height 172.2 cm Jaylen Brown MD Work Phone: [facility] 11-27-2023 08:42-0400 Body mass index (BMI) [Ratio] 39.19 kg/m2 Jaylen Brown MD Work Phone: [facility] 11-27-2023 08:42-0400 Body weight 116.21 kg Jaylen Brown MD Work Phone: [facility] 11-27-2023 08:42-0400 Diastolic blood pressure 91 mm[Hg] Jaylen Brown MD Work Phone: [facility] 11-27-2023 08:42-0400 Heart rate 84 /min Jaylen Brown MD Work Phone: [facility] [employer] [facility] 11-27-2023 08:42-0400 Systolic blood pressure 142 mm[Hg] Jaylen Brown MD Work Phone: [facility] [employer] [facility] 10-27-2022 20:03-0400 Diastolic blood pressure 76 mm[Hg] Anna Callahan MD Work Phone: [facility] [employer] 10-27-2022 20:03-0400 SaO2% (BldA) [Mass fraction] 98 % Anna Callahan MD Work Phone: [employer] 10-27-2022 20:03-0400 Systolic blood pressure 126 mm[Hg] Anna Callahan MD Work Phone: [facility] [employer] 10-27-2022 15:17-0400 Body weight 104.33 kg Anna Callahan MD Work Phone: [facility] [employer] 10-27-2022 15:15-0400 Body temperature 97.9 [degF] Anna Callahan MD Work Phone: [facility] 10-27-2022 15:15-0400 Heart rate 100 /min Anna Callahan MD Work Phone: [facility] 10-27-2022 15:15-0400 Respiratory rate 18 /min Anna Callahan MD Work Phone: [facility] Encounters Encounter Date Encounter Type Care Provider Facility Start: 01-11-2024 End: 01-11-2024 Telemedicine consultation with patient Suresh PATEL Work Phone: [facility] Comment on above: Morbid obesity (CMS- HCC) (Primary Dx); Pre-bariatric surgery nutrition evaluation Start: 01-11-2024 End: 01-11-2024 ambulatory [facility] Start: 12-11-2023 End: 12-11-2023 Telemedicine consultation with patient Suresh PATEL Work Phone: [facility] Comment on above: Morbid obesity (CMS- HCC) (Primary Dx); Pre-bariatric surgery nutrition evaluation; Obesity, Class II, BMI 35-39.9 Start: 12-11-2023 End: 12-11-2023 [facility] Start: 12-02-2023 End: 12-02-2023 ambulatory [facility] Start: 11-27-2023 End: 11-27-2023 Office outpatient new 45 minutes Jaylen Brown MD Work Phone: [facility] General Surgery Comment on above: Obesity, Class II, B NE 35-39.9 (Primary Dx); Gastroesophageal reflux disease, unspecified whether esophagitis present Start: 11-27-2023 End: 11-27-2023 ambulatory [facility] Start: 10-27-2022 End: 10-27-2022 Emergency department patient visit Anna Callahan MD Work Phone: [facility] ED Comment on above: Left flank pain (Berenice denilson Dx) Start: 04-21-2022 End: 04-22-[address] FRANCIA ROWELL . Facility:[facility] Start: 03-24-2022 End: 03-25-[address] FRANCIA ROWELL . Facility:[facility] Start: 03-19-2022 End: 03-19-[address] FRANCIA ROWELL . Facility: Start: 12-05-2016 End: 12-05-2016 Patient encounter [facility] Facility:[facility] Start: 11-29-2016 End: 11-29-2016 Patient encounter [facility] Facility:[facility] Procedures Date Procedure Procedure Detail Performing [...] Treatment Date Care Activity Detail Author Start: 01-10-2025 Adult BMI Screening Adult BMI Screen ing [facility] Start: 12-10-2024 Adult BMI Follow Up Plan Adult BMI Follow Up Plan [facility] Start: 12-10-2024 Adult BMI Screening Adult BMI Screen ing [facility] Start: 11-26-2024 Adult BMI Screening Adult BMI Screen ing [facility] Start: 05-08-2024 DTaP,Tdap and Td Vac cines (2 - Td or Tdap) DTaP,Tdap and Td Vaccines (2 - Td or Tdap) [facility] Start: 02-11-2024 End: 02-11-2024 Telemedicine consultation with patient 02/11/2024 10:30 AM EST Telemedicine [facility] [address] [place] [address] Suresh Salazar LD [address] [place] [address] [facility] Start: 01-11-2024 End: 01-11-2024 Telemedicine consultation with patient 01/11/2024 12:00 PM EST Telemedicine [facility] [address] [place] [phone] Suresh Salazar, [address] [place] [address] [facility] Start: 12-11-2023 End: 12-11-2023 Telemedicine consultation with patient 12/11/2023 9:00 AM EDT Telemedicine [facility] [address] [place] [address] Suresh Salazar, [address] [place] [address] [facility] Start: 11-27-2023 End: 11-26-2024 RF Gastrointestinal tract upper Views W air contrast PO and W barium contrast PO Fluoroscopy upper GI with esophagus Imaging Routine Obesity, Class II, BMI 35-39.9 Expected: 11/27/2023, Expires: 11/26/[address] [facility] Comment on above: Expected: 11/27/2023 , Expires: 11/26/2024 Start: 10-11-2023 COVID-19 Vaccine ( season) COVID-19 Vaccine ( season) [facility] Start: 10-11-2023 COVID-19 Vaccine ( season) COVID-19 Vaccine ( season) [facility] Start: 10-11-2023 Influenza vaccination Influenza Vacc ine [facility] Start: 10-06-2023 Tobacco Screening Tobacco Screening [facility] Start: 04-16-2023 Depression Screening Depression Scre ening [facility] Start: 09-09-2022 Influenza vaccination Flu vaccine (# 1) [facility] Start: 2021 Lipid panel Lipids [facility] [employer] Start: 05-01-2011 Screening for malign ant neoplasm of cervix [facility] Start: 2002 Screening for malign ant neoplasm of cervix Pap smear [facility] Start: 2000 DTaP/Tdap/Td vaccine (1 - Tdap) DTaP/Tdap/Td vaccine (1 - Tdap) [facility] Start: 05-01-1999 Adult BMI Follow Up Plan Adult BMI Follow Up Plan [facility] Start: 05-01-1999 Hepatitis C screening Hepatitis C sc reen [facility] Start: 1996 HIV screening HIV screen [facility] Start: 1993 Depression Screen Depression Screen [facility] Start: 1982 Varicella vaccine (1 of 2 - 2-dose childhood series) Varicella vaccine (1 of 2 - 2-dose childhood series) [facility] Start: 1981 COVID-19 Vaccine (#1) COVID-19 Vacci ne (#1) [facility] Start: 1981 Hepatitis B vaccine (1 of 3 - 3-dose series) Hepatitis B vaccine (1 of 3 - 3-dose series) [facility] End: 11-26-2024 CBC W Auto Differential panel - Blood CBC auto differential Lab Routine Obesity, Class II, BMI 35-39.9 1 Occurrences starting 11/27/2023 until 11/26/2024 [employer] Work Phone: Comment on above: 1 Occurrences starti ng 11/27/2023 until 11/26/2024 End: 10-27-2022 Culture, Urine [facility] Work Phone: Comment on above: One Time for 1 Occur rences starting 10/27/2022 until 10/27/2022 End: 11-26-2024 Cyanocobalamin vitamin b-12 Vitamin B12 Lab Routine Obesity, Class II, BMI 35-39.9 1 Occurrences starting 11/27/2023 until 11/26/[address] [facility] Comment on above: 1 Occurrences starti ng 11/27/2023 until 11/26/2024 End: 11-26-2024 Hemoglobin A1c/Hemoglobin.total in Blood Hemoglobin A1c Lab Routine Obesity, Class II, BMI 35-39.9 1 Occurrences starting 11/27/2023 until 11/26/2024 [facility]: 1 Occurrences starti ng 11/27/2023 until 11/26/2024 End: 11-26-2024 Iron [Mass/volume] in Serum or Plasma Iron Lab Routine Obesity, Class II, BMI 35-39.9 1 Occurrences starting 11/27/2023 until 11/26/2024 [facility] on above: 1 Occurrences starti ng 11/27/2023 until 11/26/2024 End: 11-26-2024 Liver panel Liver panel Lab Routine Obesity, Class II, BMI 35-39.9 1 Occurrences starting 11/27/2023 until 11/26/2024 [employer] Comment on above: 1 Occurrences starti ng 11/27/2023 until 11/26/2024 End: 11-26-2024 Parathyroid Hormone, intact Parathyroid Hormone, intact Lab Routine Obesity, Class II, BMI 35-39.9 1 Occurrences starting 11/27/2023 until 11/26/2024 [facility] Comment on above: 1 Occurrences starti ng 11/27/2023 until 11/26/2024 End: 11-26-2024 Thyrotropin [Units/volume] in Serum or Plasma TSH Lab Routine Obesity, Class II, BMI 35-39.9 1 Occurrences starting 11/27/2023 until 11/26/2024 [facility] Comment on above: 1 Occurrences starti ng 11/27/2023 until 11/26/2024 End: 11-26-2024 Vitamin D 25 hydroxy Vitamin D 25 hydroxy Lab Routine Obesity, Class II, BMI 35-39.9 1 Occurrences starting 11/27/2023 until 11/26/2024 [facility] Comment on above: 1 Occurrences starti ng 11/27/2023 until 11/26/2024 Immunizations Immunization Date Immunization Notes Care Provider Fa cili 12-11-2020 influenza virus vaccine, unspecified formulation [facility]len Brown MD [facility] Payers Date Payer Category Payer Managed Care Other (unspecified) [employer] [id number] 2023 Unknown [id number] 2016 Unknown [id number] 1980 Unknown [id number] .[id number] 1980 Unknown [id number] [id number] .[id number] 1981 Unknown [id number] [id number] .[id number] 1981 Unknown [id number] [id number] .2.173 1981 Unknown [id number] [id number] .2.1286 1981 Unknown [id number] [id number] .2.1286 1981 Unknown [id number] [id number] .2.1286 1981 Unknown [id number] [id number] .2.1286 1981 Unknown [id number] .2.1286 1959 Unknown [id number] Social History Date Type Detail Facility Tobacco smoking stat us NHIS Tobacco [facility] consumption [facility] Start: 1980 Sex Assigned At Not on file [facility] Start: 03-22-2020 End: 10-05-2022 Gender identity Not on file [facility] Start: 05-17-2021 Tobacco smoking stat [facility] Occasional tobacco smoker [facility] History of tobacco use Cigarette Smoker P [employer] [facility] Start: 03-22-2020 End: 05-17-2021 Cigarettes smoked current (pack per day) - Reported 0.[address] [facility] Start: 05-17-2021 Tobacco use and exposure Smokeless tobacco non-user [facility] Start: 10-05-2022 Alcoholic beverage intake Current non-drinker of alcohol (finding) [facility] Adolescent depressio n screening assessment [address] [facility] Start: 09-14-2014 Sex Female (finding) [facility] Medical Equipment Procedure Code Equipment Code Equipment Origin al Text Equipment Identifier Dates [place] Sut 4.75m m Swivelock Cls Eylt Vnt Pk 19.1mm Strl Disp Cls Use [id number] Ea=Bill Only - [id number] Start: 05-29-2021 Clinical Notes 10-27-2022 to 01-11-2024 AMANDA Kaur - 01/11/2024 12:00 PM ESTPatient InstructionsAMANDA Kaur - 12/11/2023 9:00 AM EDTPatient InstructionsJaylen Brown MD - 11/27/2023 9:00 AM EDTDischarge Instructions Note Date & Type Note Facility 01-11-2024 History of Present illness Narrative Bariatric Medical Nutrition Therapy Nutritional Assessment/Education Session #: 2 Video Visit via Real-time Synchronous Audiovisual Provider Location: [facility] [address] [place] [phone] Patient Location: Patient's home Video Visit Consent [...] that there are some limitations compared to mock-cj-bzyu evaluations. The patient consented to the presence of additional virtual and/or in-person participants. We elected to proceed. Tamy Lo is a 43 y.o. female who presents for follow up medical nutritional therapy for weight loss surgery. Weight Change 01/11/2024 Weight: 115.7 kg (255 lb) Weight Change: up 3 pounds in one month Tamy is doing well with working on her goals this month. Despite having leg pain she is walking several times a day and occasionally going to the gym. She is eating 4-5 meals a day focusing on protein rich foods. Discussed limiting starches in her diet. She is not drinking any sugar sweetened beverages and is drinking at least 64 oz of fluids. Diet Recall: Breakfast Snack Lunch Snack Dinner Snack Breakfast pizza (white gravy, scrambled eggs, sausage, and cheese) Low-fat costa rican yogurt Tomato soup and grilled cheese Salad with chicken Beverage Intake: Gatorade zero, ice tea (unsweet), water, and coffee with fat free creamer (1 cup) Physical Activity: Walking 20-30 minutes 3 times a day and active at work (is limited due to leg pain) Bariatric Medical Nutrition Therapy Goal Summary Eat 4-5 meals per day. No night time snacking.: 100% of the time Avoid all sugars, sweets, desserts, and sugared beverages.: 75% of the time Eat fewer fried foods, limit fats added to foods, and avoid high-fat fast foods.: 100% of the time Eat protein-rich food at each meal.: 100% of the time Take a multi-vitamin/mineral supplement daily.: 100% of the time Sip liquids. Drink 64 ounces/day.: 75% of the time Eliminate drinks with sugar, carbonation, caffeine and alcohol.: 75% of the time Exercise 3 - 5 times per week by: 100% of the time Nutrition Diagnosis: Obesity as evidenced by BMI. Body mass index is 39 kg/m . Nutrition Intervention: Nutrition education Discussed diet and behavioral changes needed to be successful with weight loss surgery. Pt is to continue to work towards making medical nutrition therapy goals part of daily habits prior to surgery. 1) Eat 4-5 meals per day. No [...] all discussed has been provided within the [facility] Bariatric Guide. My contact name and number provided if questions or concerns arise. Nutrition Monitoring: To follow up in 1 month to show progress towards goals. Start time: 1158 End time: 1222 documented in this encounter [facility] 01-11-2024 Instructions AMANDA Kaur - 01/11/2024 12:00 PM EST If you re looking for general health and wellness resources, please visit [email or web address]. Read the [facility] Bariatric Guide. documented in this encounter [facility] 12-11-2023 History of Present illness Narrative Bariatric Medical Nutrition Therapy Nutritional Assessment/Education Initial Nutrition Education Video Visit via Real-time Synchronous Audiovisual Provider Location: [facility] [address] [place] [phone] Patient Location: Patient's home Video Visit Consent [...] that there are some limitations compared to jexw-kn-oqhy evaluations. The patient consented to the presence [...] weight loss. 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 Start time: 852 End time: 950 documented in this encounter [facility] 12-11-2023 Instructions AMANDA Kaur - 12/11/2023 9:00 AM EDT If you re looking for general health and wellness resources, please visit [email or web address]. Read the [facility] Bariatric Guide. documented in this encounter [facility] 11-27-2023 History of Present illness Narrative [facility] GENERAL [facility] [phone] [facility] SURGICAL WEIGHT LOSS PROGRAM INITIAL EVALUATION Patient: [...] Performed by Aries Haro Jr., DO at [facility] ARTHROSCOPY REPAIR ROTATOR CUFF SHOULDER [id number], SUBACROMIAL DECOMPRESSION 69558/extensive debridement Right 05/29/2021 Performed by Luigi Vargas MD at [facility] CHOLECYSTECTOMY COLONOSCOPY N/A 2017 Performed by Sancho Curry MD at [facility] EGD N/A 2017 Performed by Sancho Curry MD at [facility] HYSTERECTOMY partial OOPHORECTOMY Right Family History: [...] Parkinson's [] [x] Anxiety disorder [] [x] Genitourinary/Spiritual Minister YES NO Skin Intact [x] [] Urinary [...] you have any difficulty moving your head mvma-[id number]-wynu? [x] No [] Yes Do you have [...] turgor normal, no rashes or lesions Neurologic: packager intact, normal strength. Alert and oriented. Follows [...] Testing Screening Chest Xray and EKG at [facility] appointment Labwork: Final Lab Tests at [facility] appointment Please note that this chart was generated using voice recognition [employer] dictation software. Although every effort was made to ensure the accuracy of this automated railroad signal and switch operator, some errors in railroad signal and switch operator may have occurred. documented in this encounter [facility] 10-27-2022 Hospital Discharge instructions Tyler Galarza PA-C - 10/27/2022 7:59 [...] cannot be sent through Care Everywhere.Flank Pain (Citizen Of [place])documented in this encounter [facility] Evaluation note Diagnosis Left flank pain- Primary Abdominal pain, unspecified site [facility] Diagnosis Obesity, Class II, BMI 35-39.9- Primary Gastroesophageal reflux disease, unspecified whether esophagitis present [facility] Diagnosis Morbid obesity (CMS-HCC)- Primary Morbid obesity Pre-bariatric surgery nutrition evaluation Obesity, Class II, BMI 35-39.9 [facility] Diagnosis Morbid obesity (CMS-HCC)- Primary Morbid obesity Pre-bariatric surgery nutrition evaluation documented [facility]ructionsNot on filedocumented in this encounter [facility] Summary Purpose Family History No Family History [...] section and content) DATE CREATED AUTHOR 08/22/2017 [facility] DATE CREATED AUTHOR AUTHOR'S ORGANIZ ATION 04/28/2022 [facility] DATE CREATED AUTHOR AUTHOR'S ORGANIZ ATION 08/06/2023 [facility] DATE CREATED AUTHOR AUTHOR'S ORGANIZ ATION 11/29/2023 [facility] Ambulatory [facility] DATE CREATED AUTHOR AUTHOR'S ORGANIZ ATION 12/03/2023 [facility] DATE CREATED AUTHOR AUTHOR'S ORGANIZ ATION 01/12/2024 [facility] Reason for Visit (unrecogniz ed section and content) Reason Comments Flank Pain Left flank pain ongo ing for the past few days. on 4th day of macrobid, completed 2 other courses of antibiotics for ongoing UTI for 3 weeks. Reason Comments New Patient Reason Comments Nutrition Counseling Specialty Diagnoses / Procedures Referred By Contzoe t Referred To Contact Nutrition Diagnoses Obesity, Class II, BMI 35-39.9 Jaylen Brown MD [address] [place] [address] Phone: tel: fax: Referral ID Status Reason Start Date Expiration Date Visits Requested Visits Authorized [id number] Pending Review Specialty Services Required 4 11/26/2024 [...] Care Teams (unrecognized sec tion and content) Ram Car Operator Relationship Specialty Start Date End Date Francia Rowell MD PCP - General 04/30/17 Ram Car Operator Relationship Specialty Start Date End Date Francia Rowell MD PCP - General 04/30/17 Ram Car Operator Relationship Specialty Start Date End Date Francia [...] BE BASED ON THE PRIMARY CLINICAL RECORDS. [facility]. provides no warranty or guarantee of the accuracy or completeness of information in this document.
== END 2024-01-14 13:50 | disposition home or self-care (01) ==
LOC: VC 12:56
PROVIDERS: PCP Radiology Diagnostic Radiology; Visit Provider Radiology Diagnostic Radiology
DX: I83.813 Varicose veins of bilateral lower extremities with pain (principal)
CPT/HCPCS: 36478

== ENCOUNTER 2024-01-18 12:56 | Outpatient (OUT) | payer OTHER, SELFPAY ==
--- NOTE | 2024-01-18 12:57 | VEIN_ITS ---
Patient Name: TAMY CHAPIN MR#: [id number] : 1980 Exam Date: 01/18/2024 Ordering Doctor: DR MAURICIO LYONS M.D. RADIOLOGY REPORT PROCEDURE: [facility] EST LMTD VEIN CENTER - OFFICE VISIT FOLLOW UP [facility] PROGRESS NOTES: The patient reports improvement in leg symptoms. There has been interval reduction in varicosities. The patient has followed our recommendations to walk 20-30 minutes once or twice per day since the procedure. Physical exam demonstrates decrease in varicosities of the leg. Persistent varicosities are identified along the legs bilaterally. Review of the ultrasound performed the same day demonstrates occlusive thrombus extending throughout the treated vein(s), see separate report, consistent with a successful ablation. No thrombus extending into or beyond the saphenofemoral junction. The patient expressed a desire to proceed with treatment of remaining incompetent varicosities. The patient was informed that treatment was a process and would require several procedures/sessions. VEIN/[facility] EST LMTD IMPRESSION: 1. Successful ablation of the right and left anterior accessory saphenous veins. 2. Persistent varicose veins and lower extremity symptoms. PLAN: 1. Microfoam chemical ablation of left leg incompetent branch saphenous varicosities. Nurse notes, history and physical were reviewed and confirmed, see attached forms. The nurse was present throughout the physical exam and consultation Dictated by: Raj Helms M.D. on 01/18/2024 at 15:40 Approved by: Raj Helms M.D. on 01/18/2024 at 15:41
--- NOTE | 2024-01-18 12:57 | VEIN_ITS ---
Patient Name: TAMY CHAPIN MR#: [id number] : 1980 Exam Date: 01/18/2024 Ordering Doctor: DR MAURICIO LYONS M.D. RADIOLOGY REPORT PROCEDURE: VC EXT VENOUS HARSHAD LIMITED COMPARISON: VC EXT VENOUS HARSHAD LIMITED, 01/05/2024. INDICATIONS: I80.03 - Phlebitis and thrombophlebitis of superficial veins bilateral TECHNIQUE: Lower extremity taveras scale and Duplex Doppler evaluation of the deep venous system from the inguinal ligament through the calf veins. FINDINGS: REGION: Right lower extremity. THROMBI: Acute occlusive thrombus. Heat induced thrombus in right AASV 3.9 cm from SFJ and extends to mid thigh. COMPRESSIBILITY: Non-compressible segments. FLOW: Areas on no flow. OTHER: Negative. REGION: Left lower extremity. THROMBI: Acute occlusive thrombus.Heat induced thrombus in left AASV 1.4 cm from SFJ and extends to mid thigh. COMPRESSIBILITY: Non-compressible segments. FLOW: Areas on no flow. OTHER: Negative. CONCLUSION: 1. Successful post ablation occlusion of right anterior accessory saphenous vein. 2. Successful post ablation occlusion of left anterior accessory saphenous vein. Dictated by: Raj Helms M.D. on 01/18/2024 at 15:39 Approved by: Raj Helms M.D. on 01/18/2024 at 15:40
[2024-01-18 13:01] VITALS: BMI 31.6
--- NOTE | 2024-01-18 13:01 | VEINCLINIC_ITS ---
Vital Signs 01/18/24 13:01 Height 5 ft 10 in Weight 99.79 kg BMI 31.6 Varicose Veins Patient in today for follow up ultrasound of bilateral lower extremities following EVLT of bilateral AASV completed on 01/11/24 and 01/14/24. Raj Nogueira MD personally performed the services described in this documentation, as scribed by Maria Elena Blackburn RDMS in my presence and it is both accurate and complete. Maria Elena Nogueira RDMS, am scribing for, and in the presence of, Dr. Kristine Helms and in the presence of the patient. thigh: bilateral, knee: bilateral, calf: bilateral, ankle: bilateral and alamo: bilateral aching, cramping, dull and tender 5 1 year Worsened in recent months: Yes standing and sitting elevating extremities and compression stockings Reports firmness, heaviness, restless legs, pruritus, limb pain, edema and leg edema History of lower extremity trauma: No Superficial thrombophlebitis: No Family history of varicose veins: yes Has patient had previous lower extremity venous surgery: No Patient has previously received the following treatment(s) for lower extremity varicose veins: Reports none Does patient have a history of : yes Does patient intend to have future pregnancies: no Has patient had lower extremity venous scan with relux testing: Yes Support hose used: Yes Problems walking or doing physical activity: Yes How does it affect you: difficulty standing at work for long periods Do you walk much: Yes Do you stand much: Yes Review of Systems ROS Narrative Raj Nogueira MD personally performed the services described in this documentation, as scribed by Maria Elena Blackburn RDMS in my presence and it is both accurate and complete. Maria Elena Nogueira RDMS, am scribing for, and in the presence of, Dr. Kristine Helms and in the presence of the patient. Status of ROS 10 or more systems reviewed and unremark able except as noted in history and below Cardiovascular Reports: edema and swelling of feet/ankles Musculoskeletal Reports: extremity pain, extremity swelling, joint pain, joint swelling and muscle cramps Integumentary/Breast Reports: itching, skin tenderness and skin swelling PFSH PFS Medical History (Updated 01/11/24 @ 13:49 by Juve Cardoso) Superficial thrombophlebitis of left leg ?I80.02 - Phlebitis and thrombophlebitis of superficial vessels of left lower extremity (ICD-10) Superficial thrombophlebitis of both legs ?I80.03 - Phlebitis and thrombophlebitis of superficial vessels of lower extremities, bilateral (ICD-10) 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, unspecified (ICD-10) Rotator cuff arthropathy of right shoulder ?M12.811 - Other specific arthropathies, not elsewhere classified, right shoulder (ICD-10) Hypertension ?I10 - Essential (primary) hypertension (ICD-10) Tachycardia ?R00.0 - Tachycardia, unspecified (ICD-10) Pain due to varicose veins of both lower extremities ?I83.813 - Varicose veins of bilateral lower extremities with pain (ICD-10) Surgical History (Updated 01/14/24 @ 13:13 by Juve Cardoso) Status post laser ablation of incompetent vein ?Z98.890 - Other specified postprocedural states (ICD-10) Status post laser ablation of incompetent vein ?Z98.890 - Other specified postprocedural states (ICD-10) Status post laser ablation of incompetent vein ?Z98.890 - Other specified postprocedural states (ICD-10) History of appendectomy ?Z90.49 - Acquired absence of other specified parts of digestive tract (ICD- 10) History of cholecystectomy ?Z90.49 - Acquired absence of other specified parts of digestive tract (ICD- 10) H/O: hysterectomy ?Z90.710 - Acquired absence of both cervix and uterus (ICD-10) History of arthroplasty of left ankle ?Z96.662 - Presence of left artificial ankle joint (ICD-10) Family History (Updated 12/04/23 @ 09:16 by Christal Lima RN) Grandmother Pain due to varicose veins of both lower extremities Family history of CHF (congestive heart failure) Family history of cancer Family history of diabetes mellitus Family history of hypertension Niece Lupus Grandfather Family history of COPD (chronic obstructive pulmonary disease) Family history of hypertension Father Family history of cancer Sister Family history of diabetes mellitus Family history of hypertension Mother Family history of hypertension Social History (Updated 12/04/23 @ 09:17 by Christal Lima RN) Within the past year, how often did you have a drink containing alcohol: monthly or less Smoking status: Current some day smoker Nicotine containing products detail: 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 Non-prescribed substance use: denies use Meds Home Medications and Allergies Home Medications ?Medication ?Instructions ?Recorded ?Confirmed ?Type triamcinolone acetonide 0.1 % applic topical BID 09/04/23 History topical cream furosemide 40 mg tablet (Lasix) 40 mg PO DAILY 12/04/23 12/04/23 History meloxicam 15 mg tablet 15 mg PO DAILY 12/04/23 12/04/23 History metoprolol succinate 50 mg 25 mg PO BID 12/04/23 12/04/23 History tablet,extended release 24 hr (Toprol XL) nicotine 14 mg/24 hr daily 1 patch transdermal DAILY 12/04/23 12/04/23 History transdermal patch pantoprazole 20 mg tablet,delayed 20 mg PO DAILY 12/04/23 12/04/23 History release (Protonix) potassium chloride 20 mEq oral 20 meq PO DAILY 12/04/23 12/04/23 History packet (Klor-Con) Allergies Allergy/AdvReac Type Severity Reaction Status Date / Time hydromorphone (From Dilaudid) Allergy Severe Swelling Verified 09/04/23 20:07 of the Eye Exam Narrative Exam Narrative: Raj Nogueira MD personally performed the services described in this documentation, as scribed by Maria Elena Blackburn RDMS in my presence and it is both accurate and complete. Maria Elena Nogueira RDMS, am scribing for, and in the presence of, Dr. Kristine Helms and in the presence of the patient. Constitutional Documenting provider has reviewed patient's vital signs: yes Common normals: oriented x3 Nutritional appearance: overweight Lymph Lymphatic: no lymphedema noted Cardio Peripheral pulses: posterior tibial pulses present and dorsalis pedis pulses present Extremity General: calf tenderness, edema and other findings Right lower extremity: lower leg Right lower leg: inspection and palpation Left lower extremity: lower leg Left lower leg: inspection and palpation Neuro Common normals: oriented x3 Results Imaging Venous US: Radiologist's impression: Heat induced thrombus in bilateral AASV 3.9 cm and 1.4 cm from SFJ and extends to mid thigh. Raj Nogueira MD personally performed the services described in this documentation, as scribed by Maria Elena Blackburn RDMS in my presence and it is both accurate and complete. I, Maria Elena Blackburn RDMS, am scribing for, and in the presence of, Dr. Kristine Helms and in the presence of the patient. Assessment and Plan Assessment and Plan (1) Superficial thrombophlebitis of both legs: Plan Plan is for patient to return for Varithena/microfoam of left leg on 01/19/24. I, Raj Helms MD personally performed the services described in this documentation, as scribed by Maria Elena Blackburn RDMS in my presence and it is both accurate and complete. I, MariaE lena Blackburn RDMS, am scribing for, and in the presence of, Dr. Kristine Helms and in the presence of the patient.
--- NOTE | 2024-01-18 13:17 | P.DS_ITS ---
Discharge Plan Discharge Disposition: Home, Self-Care Outpatient Diagnostics: VC INJ Foam Sclerosant HERMINIA RADIATION ONCOLOGY THERAPIST (Routine) Timeframe: 2 Weeks Facility: [facility] - Location: [facility] Ordered By: Raj Helms Follow Up Appointments: 01/19/24 Plan of Treatment: Varithena/microfoam of left leg Print Language: Kiswahili Discharge Date/Time: 01/18/24 13:18
== END 2024-01-18 13:18 | disposition home or self-care (01) ==
PROVIDERS: PCP Radiology Diagnostic Radiology; Visit Provider Radiology Diagnostic Radiology
DX: I80.03 Phlebitis and thrombophlebitis of superficial vessels of lower extremities, bilateral (principal)
CPT/HCPCS: 93970; G0463

== ENCOUNTER 2024-01-19 13:00 | Outpatient (OUT) | payer OTHER, SELFPAY ==
--- NOTE | 2024-01-18 15:54 | V.VEINS.HP ---
Vital Signs 01/19/24 15:35 BP 124/70 BP Location Left Brachial BP Position Sitting BP Cuff Size Adult BP Source Manual Cuff Respiration 16 Pulse 90 Pulse Source Monitor Pulse Oximetry (%) 97 Oxygen Delivery Method Room Air Comment The patient's blood pressure is elevated. Varicose Veins Patient in today for microfoam chemical ablation Raj Nogueira MD personally performed the services described in this documentation, as scribed by Juve Cardoso RN in my presence and it is both accurate and complete. Juve Nogueira RN, am scribing for, and in the presence of, Dr. Raj Helms and in the presence of the patient. thigh: bilateral, knee: bilateral, calf: bilateral, ankle: bilateral and alamo: bilateral aching, cramping, dull and tender 5 1 year Worsened in recent months: Yes standing and sitting elevating extremities and compression stockings Reports firmness, heaviness, restless legs, pruritus, limb pain, edema and leg edema History of lower extremity trauma: No Superficial thrombophlebitis: No Family history of varicose veins: yes Has patient had previous lower extremity venous surgery: No Patient has previously received the following treatment(s) for lower extremity varicose veins: Reports none Does patient have a history of : yes Does patient intend to have future pregnancies: no Has patient had lower extremity venous scan with relux testing: Yes Support hose used: Yes Problems walking or doing physical activity: Yes How does it affect you: difficulty standing at work for long periods Do you walk much: Yes Do you stand much: Yes Review of Systems ROS Narrative Raj Nogueira MD personally performed the services described in this documentation, as scribed by Juve Cardoso RN in my presence and it is both accurate and complete. Juve Nogueira RN, am scribing for, and in the presence of, Dr. Raj Helms and in the presence of the patient. Status of ROS 10 or more systems reviewed and unremarkable except as noted in history and below Cardiovascular Reports: edema and swelling of feet/ankles Musculoskeletal Reports: extremity pain, extremity swelling, joint pain, joint swelling and muscle cramps Integumentary/Breast Reports: itching, skin tenderness and skin swelling PFSH [facility] Medical History (Updated 01/11/24 @ 13:49 by Juve Cardoso) Superficial thrombophlebitis of left leg ?I80.02 - Phlebitis and thrombophlebitis of superficial vessels of left lower extremity (ICD-10) Superficial thrombophlebitis of both legs ?I80.03 - Phlebitis and thrombophlebitis of superficial vessels of lower extremities, bilateral (ICD-10) 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, unspecified (ICD-10) Rotator cuff arthropathy of right shoulder ?M12.811 - Other specific arthropathies, not elsewhere classified, right shoulder (ICD-10) Hypertension ?I10 - Essential (primary) hypertension (ICD-10) Tachycardia ?R00.0 - Tachycardia, unspecified (ICD-10) Pain due to varicose veins of both lower extremities ?I83.813 - Varicose veins of bilateral lower extremities with pain (ICD-10) Surgical History (Updated 01/19/24 @ 15:37 by Juve Cardoso) S/P sclerotherapy of varicose veins ?Z98.890 - Other specified postprocedural states (ICD-10) ?Z86.79 - Personal history of other diseases of the circulatory system (ICD-10) Status post laser ablation of incompetent vein ?Z98.890 - Other specified postprocedural states (ICD-10) Status post laser ablation of incompetent vein ?Z98.890 - Other specified postprocedural states (ICD-10) Status post laser ablation of incompetent vein ?Z98.890 - Other specified postprocedural states (ICD-10) History of appendectomy ?Z90.49 - Acquired absence of other specified parts of digestive tract (ICD-10) History of cholecystectomy ?Z90.49 - Acquired absence of other specified parts of digestive tract (ICD-10) H/O: hysterectomy ?Z90.710 - Acquired absence of both cervix and uterus (ICD-10) History of arthroplasty of left ankle ?Z96.662 - Presence of left artificial ankle joint (ICD-10) Family History (Updated 12/04/23 @ 09:16 by Christal Lima RN) Grandmother Pain due to varicose veins of both lower extremities Family history of CHF (congestive heart failure) Family history of cancer Family history of diabetes mellitus Family history of hypertension Niece Lupus Grandfather Family history of COPD (chronic obstructive pulmonary disease) Family history of hypertension Father Family history of cancer Sister Family history of diabetes mellitus Family history of hypertension Mother Family history of hypertension Social History (Updated 12/04/23 @ 09:17 by Christal Lima RN) Within the past year, how often did you have a drink containing alcohol: monthly or less Smoking status: Current some day smoker Nicotine containing products detail: /2 PPD for 25 years Non-prescribed substance use: denies use Meds Home Medications and Allergies Home Medications ?Medication ?Instructions ?Recorded ?Confirmed ?Type triamcinolone acetonide 0.1 % applic topical BID 09/04/23 History topical cream furosemide 40 mg tablet (Lasix) 40 mg PO DAILY 12/04/23 12/04/23 History meloxicam 15 mg tablet 15 mg PO DAILY 12/04/23 12/04/23 History metoprolol succinate 50 mg 25 mg PO BID 12/04/23 12/04/23 History tablet,extended release 24 hr (Toprol XL) nicotine 14 mg/24 hr daily 1 patch transdermal DAILY 12/04/23 12/04/23 History transdermal patch pantoprazole 20 mg tablet,delayed 20 mg PO DAILY 12/04/23 12/04/23 History release (Protonix) potassium chloride 20 mEq oral 20 meq PO DAILY 12/04/23 12/04/23 History packet (Klor-Con) Allergies Allergy/AdvReac Type Severity Reaction Status Date / Time hydromorphone (From Dilaudid) Allergy Severe Swelling Verified 09/04/23 20:07 of the Eye Exam Narrative Exam Narrative: Raj Nogueira MD personally performed the services described in this documentation, as scribed by Juve Cardoso RN in my presence and it is both accurate and complete. Juve Nogueira RN, am scribing for, and in the presence of, Dr. Raj Helms and in the presence of the patient. Constitutional Documenting provider has reviewed patient's vital signs: yes Common normals: oriented x3 Nutritional appearance: overweight Lymph Lymphatic: no lymphedema noted Cardio Peripheral pulses: posterior tibial pulses present and dorsalis pedis pulses present Extremity General: calf tenderness, edema and other findings Right lower extremity: lower leg Right lower leg: inspection and palpation Left lower extremity: lower leg Left lower leg: inspection and palpation Neuro Common normals: oriented x3 Assessment and Plan Assessment and Plan (1) Pain due to varicose veins of both lower extremities: Plan f/u examination with physician along with Raj Nogueira MD personally performed the services described in this documentation, as scribed by Juve Cardoso RN in my presence and it is both accurate and complete. Juve Nogueira RN, am scribing for, and in the presence of, Dr. Raj Helms and in the presence of the patient. Procedures Procedure Instructions Procedures leg microfoam chemical ablation/Varithena: Risks and benefits of the procedure were discussed at length and informed written consent was obtained.? Time-out procedure was performed and the correct patient and procedure were confirmed.? Staff present during time-out: Juve Cardoso RN and Raj Helms MD.? Patient prepped and procedure performed in usual sterile fashion.? Patient was placed in Trendelenburg prior to Polidocanol/Varithena injections. Sclerosing Agent:?? 8cccc 1% Polidocanol/Varithena Site Injected: left lecc varithena administered in to a 4mm varicose vein mid anterior thigh 3cc varithena administered in to a 3mm varicose vein mid anterolateral thigh Number of Injections:? 2 The patient tolerated the procedure well without complication.? Hemostasis was obtained and thigh-high compression stocking was applied with foam pads.? Instructed patient to wear stocking for at least 96 hours and sleep with it and only remove for showering.? The patient was instructed to? wear stocking for 2 weeks.? Patient verbalizes understanding and states they will comply.? Patient was given post-procedure instructions. Patient was discharged in good condition.? Scheduled to undergo limited venous ultrasound and? exam on 01/21/2024 Raj Nogueira MD personally performed the services described in this documentation, as scribed by Juve Cardoso RN in my presence and it is both accurate and complete. Juve Nogueira RN, am scribing for, and in the presence of, Dr. Raj Helms and in the presence of the patient.
--- NOTE | 2024-01-18 15:56 | W.VEIN ---
Discharge Plan Discharge Disposition: Home, Self-Care Outpatient Diagnostics: VC Facility EST LMTD (Routine) Timeframe: 2 Weeks Facility: [facility] - Location: Vein Center Ordered By: Raj Helms VC EXT Venous HARSHAD Limited (Routine) Timeframe: 2 Weeks Facility: [facility] - Location: Vein Center Ordered By: Raj Helms Follow Up Appointments: 01/21/2024 Plan of Treatment: f/u evaluation with physician along with limited u/s Patient Instructions: Polidocanol (By injection) (Asclera, Chandanthena) Print Language: Vincentian Discharge Date/Time: 01/19/24 15:43
--- NOTE | 2024-01-19 13:01 | VEIN_ITS ---
[address] [address] Patient Name: TAMY CHAPIN MRN: [id number] date: 1980 Sex: F Assigned Patient Location: Current Patient Location: Accession/Order Number: [id number] Exam Date: 01/19/2024 13:01 Report Date: 01/19/2024 14:13 At the request of: ABEL HELMS Procedure: VC INJ Foam Sclerosant WUS MEDICAL BILLING ASSISTANT PROCEDURE: VC INJ Foam Sclerosant WUS MEDICAL BILLING ASSISTANT HISTORY: I83.813 - Varicose veins of bilateral lower extremities w... Pre-operative Diagnosis: CEAP class C3 venous insufficiency with pain, tenderness, edema and incompetent branch saphenous vein(s), chronic venous insufficiency left leg secondary to venous incompetence Post-operative Diagnosis: CEAP class C3 venous insufficiency with pain, tenderness, edema and incompetent branch saphenous vein(s), chronic venous insufficiency left leg secondary to venous incompetence Procedure Performed: 1. Ultrasound-guided microfoam chemical ablation with Varithenaregistered 2. Intraoperative ultrasound guidance Physician: Abel Helms M.D. Anesthesia: None Indications for Procedure: 43 year old female. Symptoms including lower extremity pain, swelling, dilated bulging veins for many years despite conservative medical therapy including medical compression stockings, exercise and analgesics. Prior procedures include endovenous laser ablation. Multiple incompetent varicosities of the left leg. Duplex scan showed reflux and enlarged diameters up to 4 mm. The patient underwent informed consent including management options where the complications of infection, bleeding, pain, and skin injury were discussed. Particular attention was spent discussing thrombus extension and deep vein thrombosis as well as the possibility of pulmonary embolus and treatment with oral or injectable blood thinners. Procedure: The patient walked to the procedure room. All applicable staff donned appropriate apparel. A procedure timeout was performed to confirm correct patient, correct extremity, correct procedure, and correct room set-up including presence of all applicable supplies, devices, and drugs. A duplex ultrasound, performed by myself confirmed the location and incompetence of branch saphenous varicosities and their course was marked on the skin together with the dilated tributaries. The extent of treatment of the vein and the associated varicosities was determined through ultrasound mapping. The skin was prepped and then punctured with a butterfly needle and advanced under ultrasound guidance. The Varithenaregistered canister was activated and the canister was primed and purged as required in the instructions for use. Varithenaregistered was drawn into a sterile syringe. Varithenaregistered was slowly administered at 0.5-1.0 cc/second with close observation by ultrasound of its course in the vessels. Total volume utilized was: 8 mL (5 mL into a 4 mm varicosity mid anterior thigh; 3 mL into a 3 mm varicosity mid anterior lateral thigh). Following administration of Varithenaregistered the leg was elevated and the patient was asked to repeatedly dorsiflex the ankle to limit flow of Varithenaregistered into perforating veins. Once appropriate spasm had been confirmed in the treated veins, the vascular catheter was removed from the leg and light pressure was applied over the puncture site for hemostasis. The common femoral and deep superficial veins were then evaluated for flow and compressibility prior to dressing placement. The lower extremity was kept elevated at 45 degrees above the horizontal and cording material was applied over the saphenous segments and tributaries to allow for eccentric compression over the target vessels including the targeted saphenous vein(s). A multilayer dressing was applied consisting of foam pads, coban and thigh-high 20-30 mm Hg compression elastic support hose were placed on the patient. The leg was lowered only after compression had been applied and the patient was immediately ambulatory. The patient ambulated 10 minutes under supervision and was without apparent concerns at time of release. Post-care instructions include advising patient to keep post-treatment bandages in place and dry for 48 hours, avoid extended periods of inactivity, avoid heavy exercise for one week, wear compression stockings on the treated leg continuously for two weeks, to walk daily for 10 minutes over the next month. The patient was instructed to take an anti-inflammatory medicine as needed and to follow up for color duplex scan of the Saphenous veins, the treated branch saphenous varicosities, the adjacent deep veins, and additional treatment within 7 days. PERSONNEL: Juve Cardoso RN Electronically authenticated by: ABEL HELMS Date: 01/19/2024 14:13
[2024-01-19 15:35] VITALS: BP 124/70; PULSE 90; O2SAT 97
== END 2024-01-19 15:43 | disposition home or self-care (01) ==
LOC: VC 13:00
PROVIDERS: PCP Radiology Diagnostic Radiology; Visit Provider Radiology Diagnostic Radiology
DX: I83.813 Varicose veins of bilateral lower extremities with pain (principal)
CPT/HCPCS: 36466

== ENCOUNTER 2024-01-21 12:57 | Outpatient (OUT) | payer OTHER, SELFPAY ==
--- NOTE | 2024-01-20 15:54 | VEINCLINIC_ITS ---
Varicose Veins Patient in today for microfoam chemical ablation right leg Cesar Nogueira MD personally performed the services described in this documentation, as scribed by Juve Cardoso RN in my presence and it is both accurate and complete. Juve Nogueria RN, am scribing for, and in the presence of, Dr. Cesar Salcido and in the presence of the patient. thigh: bilateral, knee: bilateral, calf: bilateral, ankle: bilateral and alamo: bilateral aching, cramping, dull and tender 5 1 year Worsened in recent months: Yes standing and sitting elevating extremities and compression stockings Reports firmness, heaviness, restless legs, pruritus, limb pain, edema and leg edema History of lower extremity trauma: No Superficial thrombophlebitis: No Family history of varicose veins: yes Has patient had previous lower extremity venous surgery: No Patient has previously received the following treatment(s) for lower extremity varicose veins: Reports none Does patient have a history of : yes Does patient intend to have future pregnancies: no Has patient had lower extremity venous scan with relux testing: Yes Support hose used: Yes Problems walking or doing physical activity: Yes How does it affect you: difficulty standing at work for long periods Do you walk much: Yes Do you stand much: Yes Review of Systems ROS Narrative Cesar Nogueira MD personally performed the services described in this documentation, as scribed by Juve Cardoso RN in my presence and it is both accurate and complete. Juve Nogueira RN, am scribing for, and in the presence of, Dr. Cesar Salcido and in the presence of the patient. Status of ROS 10 or more systems reviewed and unremark able except as noted in history and below Cardiovascular Reports: edema and swelling of feet/ankles Musculoskeletal Reports: extremity pain, extremity swelling, joint pain, joint swelling and muscle cramps Integumentary/Breast Reports: itching, skin tenderness and skin swelling [facility] History (Updated 01/19/24 @ 15:41 by Juve Cardoso) Thrombophlebitis of superficial veins of both lower extremities ?I80.03 - Phlebitis and thrombophlebitis of superficial vessels of lower extremities, bilateral (ICD-10) Superficial thrombophlebitis of left leg ?I80.02 - Phlebitis and thrombophlebitis of superficial vessels of left lower extremity (ICD-10) Superficial thrombophlebitis of both legs ?I80.03 - Phlebitis and thrombophlebitis of superficial vessels of lower extremities, bilateral (ICD-10) 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, unspecified (ICD-10) Rotator cuff arthropathy of right shoulder ?M12.811 - Other specific arthropathies, not elsewhere classified, right shoulder (ICD-10) Hypertension ?I10 - Essential (primary) hypertension (ICD-10) Tachycardia ?R00.0 - Tachycardia, unspecified (ICD-10) Pain due to varicose veins of both lower extremities ?I83.813 - Varicose veins of bilateral lower extremities with pain (ICD-10) Surgical History (Updated 01/19/24 @ 15:37 by Juve Cardoso) S/P sclerotherapy of varicose veins ?Z98.890 - Other specified postprocedural states (ICD-10) ?Z86.79 - Personal history of other diseases of the circulatory system (ICD- 10) Status post laser ablation of incompetent vein ?Z98.890 - Other specified postprocedural states (ICD-10) Status post laser ablation of incompetent vein ?Z98.890 - Other specified postprocedural states (ICD-10) Status post laser ablation of incompetent vein ?Z98.890 - Other specified postprocedural states (ICD-10) History of appendectomy ?Z90.49 - Acquired absence of other specified parts of digestive tract (ICD- 10) History of cholecystectomy ?Z90.49 - Acquired absence of other specified parts of digestive tract (ICD- 10) H/O: hysterectomy ?Z90.710 - Acquired absence of both cervix and uterus (ICD-10) History of arthroplasty of left ankle ?Z96.662 - Presence of left artificial ankle joint (ICD-10) Family History (Updated 12/04/23 @ 09:16 by Christal Lima RN) Grandmother Pain due to varicose veins of both lower extremities Family history of CHF (congestive heart failure) Family history of cancer Family history of diabetes mellitus Family history of hypertension Niece Lupus Grandfather Family history of COPD (chronic obstructive pulmonary disease) Family history of hypertension Father Family history of cancer Sister Family history of diabetes mellitus Family history of hypertension Mother Family history of hypertension Social History (Updated 12/04/23 @ 09:17 by Christal Lima RN) Within the past year, how often did you have a drink containing alcohol: monthly or less Smoking status: Current some day smoker Nicotine containing products detail: 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 Non-prescribed substance use: denies use Meds Home Medications and Allergies Home Medications ?Medication ?Instructions ?Recorded ?Confirmed ?Type triamcinolone acetonide 0.1 % applic topical BID 09/04/23 History topical cream furosemide 40 mg tablet (Lasix) 40 mg PO DAILY 12/04/23 12/04/23 History meloxicam 15 mg tablet 15 mg PO DAILY 12/04/23 12/04/23 History metoprolol succinate 50 mg 25 mg PO BID 12/04/23 12/04/23 History tablet,extended release 24 hr (Toprol XL) nicotine 14 mg/24 hr daily 1 patch transdermal DAILY 12/04/23 12/04/23 History transdermal patch pantoprazole 20 mg tablet,delayed 20 mg PO DAILY 12/04/23 12/04/23 History release (Protonix) potassium chloride 20 mEq oral 20 meq PO DAILY 12/04/23 12/04/23 History packet (Klor-Con) Allergies Allergy/AdvReac Type Severity Reaction Status Date / Time hydromorphone (From Dilaudid) Allergy Severe Swelling Verified 09/04/23 20:07 of the Eye Exam Narrative Exam Narrative: Cesar Nogueira MD personally performed the services described in this documentation, as scribed by Juve Cardoso RN in my presence and it is both accurate and complete. Juve Nogueira RN, am scribing for, and in the presence of, Dr. Cesar Salcido and in the presence of the patient. Constitutional Documenting provider has reviewed patient's vital signs: yes Common normals: oriented x3 Nutritional appearance: overweight Lymph Lymphatic: no lymphedema noted Cardio Peripheral pulses: posterior tibial pulses present and dorsalis pedis pulses present Extremity General: calf tenderness, edema and other findings Right lower extremity: lower leg Right lower leg: inspection and palpation Left lower extremity: lower leg Left lower leg: inspection and palpation Neuro Common normals: oriented x3 Assessment and Plan Assessment and Plan (1) Pain due to varicose veins of both lower extremities: Plan f/u evaluation with physician along with right leg limited u/s Cesar Nogueira MD personally performed the services described in this documen tation, as scribed by Juve Cardoso RN in my presence and it is both accurate and complete. I, Juve Cardoso RN, am scribing for, and in the presence of, Dr. Cesar Salcido and in the presence of the patient. Procedures Procedure Instructions Procedures leg microfoam chemical ablation/Varithena: Risks and benefits of the procedure were discussed at length and informed written consent was obtained.? Time-out procedure was performed and the correct patient and procedure were confirmed.? Staff present during time-out: Juve Cardoso RN and Cesar Salcido MD.? Patient prepped and procedure performed in usual sterile fashion.? Patient was placed in Trendelenburg prior to Polidocanol/Varithena injections. Sclerosing Agent:??15 cc 1% Polidocanol/Varithena Site Injected: 6cc varithena administered in to a 4mm varicose vein right mid medial lower leg 4cc varithena administered in to a 4mm varicose vein right proximal anterior lower leg 5cc varithena administered in to a 4mm varicose vein mid medial right lower leg Number of Injections:? 3 The patient tolerated the procedure well without complication.? Hemostasis was obtained and thigh-high compression stocking was applied with foam pads.? Instructed patient to wear stocking for at least 96 hours and sleep with it and only remove for showering.? The patient was instructed to? wear stocking for 2 weeks.? Patient verbalizes understanding and states they will comply.? Patient was given post-procedure instructions. Patient was discharged in good condition.? Scheduled to undergo limited venous ultrasound and? exam on 01/29/2024. ICesar MD personally performed the services described in this documentation, as scribed by Juve Cardoso RN in my presence and it is both accurate and complete. I, Juve Cardoso RN, am scribing for, and in the presence of, Dr. Cesar Salcido and in the presence of the patient.
--- NOTE | 2024-01-20 15:58 | P.DS_ITS ---
Discharge Plan Discharge Disposition: Home, Self-Care Follow Up Appointments: 01/25/2024 Plan of Treatment: f/u evaluation with physician along with bilateral leg limited u/s Patient Instructions: Polidocanol (By injection) (Mena Scott) Print Language: Bulgarian Discharge Date/Time: 01/21/24 15:43
--- NOTE | 2024-01-21 13:07 | VEIN_ITS ---
[address] [address] Patient Name: TAMY CHAPIN MRN: [id number] date: 1980 Sex: F Assigned Patient Location: Current Patient Location: Accession/Order Number: [id number] Exam Date: 01/21/2024 13:07 Report Date: 01/21/2024 14:32 At the request of: MAURICIO LYONS Procedure: VC INJ Foam Sclerosant WUS VISUALIZER PROCEDURE: VC INJ Foam Sclerosant WUS VISUALIZER COMPARISON: None. HISTORY: I83.813 - Varicose veins of bilateral lower extremities w... Pre-operative Diagnosis: CEAP class C3 venous insufficiency with pain, tenderness, edema and incompetent right saphenous and varicose vein(s), chronic venous insufficiency right leg secondary to venous incompetence Post-operative Diagnosis: CEAP class C3 venous insufficiency with pain, tenderness, edema and incompetent right saphenous and varicose vein(s), chronic venous insufficiency right leg secondary to venous incompetence Procedure Performed: 1. Ultrasound-guided microfoam chemical ablation with Varithenaregistered 2. Intraoperative ultrasound guidance Anesthesia: None Indications for Procedure: 43-year-old female who presents with a long history of lower extremity pain swelling and varicose veins. The patient failed conservative medical therapy including medical compression stockings, exercise and analgesics. Prior procedures include intervenous laser ablation. Multiple incompetent varicosities of the right leg. Duplex scan showed reflux and enlarged diameters up to 4 mm. The patient underwent informed consent including management options where the complications of infection, bleeding, pain, and skin injury were discussed. Particular attention was spent discussing thrombus extension and deep vein thrombosis as well as the possibility of pulmonary embolus and treatment with oral or injectable blood thinners. Procedure: The patient walked to the procedure room. All applicable staff donned appropriate apparel. A procedure timeout was performed to confirm correct patient, correct extremity, correct procedure, and correct room set-up including presence of all applicable supplies, devices, and drugs. A duplex ultrasound, performed by myself confirmed the location and incompetence of branch saphenous varicosities and their course was marked on the skin together with the dilated tributaries. The extent of treatment of the vein and the associated varicosities was determined through ultrasound mapping. The skin was prepped and then punctured with a butterfly needle and advanced under ultrasound guidance. The Varithenaregistered canister was activated and the canister was primed and purged as required in the instructions for use. Varithenaregistered was drawn into a sterile syringe. The following injections were made: 6 cc injected into a 4 mm varicose vein right mid medial lower leg 4 cc injected into a 4 mm varicose vein right proximal anterior lower leg 5 cc injected into a 4 mm mid medial right thigh Varithenaregistered was slowly administered at 0.5-1.0 cc/second with close observation by ultrasound of its course in the vessels. Total volume utilized was: 15cc. Following administration of Varithenaregistered the leg was elevated and the patient was asked to repeatedly dorsiflex the ankle to limit flow of Varithenaregistered into perforating veins. Once appropriate spasm had been confirmed in the treated veins, the vascular catheter was removed from the leg and light pressure was applied over the puncture site for hemostasis. The common femoral and deep superficial veins were then evaluated for flow and compressibility prior to dressing placement. The lower extremity was kept elevated at 45 degrees above the horizontal and cording material was applied over the saphenous segments and tributaries to allow for eccentric compression over the target vessels including the targeted saphenous vein(s). A multilayer dressing was applied consisting of foam pads, coban and thigh-high 20-30 mm Hg compression elastic support hose were placed on the patient. The leg was lowered only after compression had been applied and the patient was immediately ambulatory. The patient ambulated 10 minutes under supervision and was without apparent concerns at time of release. Post-care instructions include advising patient to keep post-treatment bandages in place and dry for 48 hours, avoid extended periods of inactivity, avoid heavy exercise for one week, wear compression stockings on the treated leg continuously for two weeks, to walk daily for 10 minutes over the next month. The patient was instructed to take an anti-inflammatory medicine as needed and to follow up for color duplex scan of the Saphenous veins, the treated branch saphenous varicosities, the adjacent deep veins, and additional treatment within 7 days. PERSONNEL: Juve Cardoso RN Electronically authenticated by: MAURICIO LYONS Date: 01/21/2024 14:32
== END 2024-01-21 15:43 | disposition home or self-care (01) ==
LOC: VC 12:57
PROVIDERS: PCP Radiology Diagnostic Radiology; Visit Provider Radiology Diagnostic Radiology
DX: I83.813 Varicose veins of bilateral lower extremities with pain (principal)
CPT/HCPCS: 36466

== ENCOUNTER 2024-01-26 11:27 | Outpatient (OUT) | payer OTHER, SELFPAY ==
--- NOTE | 2024-01-26 11:28 | VEIN_ITS ---
Patient Name: TAMY CHAPIN MR#: [id number] : 1980 Exam Date: 01/26/2024 Ordering Doctor: DR ABEL COLES M.D. RADIOLOGY REPORT PROCEDURE: [facility] - OFFICE VISIT FOLLOW UP COMPARISON: FACILITY EST [facility], 01/18/2024. FACILITY EST [facility], 01/05/2024. PROGRESS NOTES: The patient reports no significant problems following micro foam chemical ablation of the right leg incompetent varicose veins. The patient has worn her compression stocking. The patient did not require oral analgesics Physical exam demonstrates scattered thrombosed varicose veins. No residual varicose veins. Scattered reticular and spider veins. No erythema or warmth to suggest cellulitis or thrombophlebitis. No active ulceration Review of the ultrasound performed the same day demonstrates occlusive thrombus extending throughout the treated varicose veins. No significant incompetent patent varicose veins identified in the legs. The patient expressed a desire to proceed with treatment of spider in reticular veins. We will contact the patient's insurance company for pre-surgical a alamo of injection sclerotherapy. The patient's insurance company for precertification of injection sclerotherapy VEIN/ Facility EST LMTD IMPRESSION: 1. Successful ablation of treated incompetent varicose veins 2. Persistent bilateral reticular and spider veins. PLAN: Injection sclerotherapy of reticular and spider veins Nurse notes, history and physical were reviewed and confirmed, see attached forms. The nurse was present throughout the physical exam and consultation Dictated by: Cesar Salcido MD on 01/26/2024 at 12:46 Approved by: Cesar Salcido MD on 01/26/2024 at 12:48
--- NOTE | 2024-01-26 11:28 | VEIN_ITS ---
Patient Name: TAMY CHAPIN MR#: [id number] : 1980 Exam Date: 01/26/2024 Ordering Doctor: DR ABEL COLES M.D. RADIOLOGY REPORT PROCEDURE: VC EXT VENOUS HARSHAD LIMITED COMPARISON: VC EXT VENOUS HARSHAD LIMITED, 01/18/2024. VC EXT VENOUS HARSHAD LIMITED, 01/05/2024. INDICATIONS: I80.03 - Phlebitis and thrombophlebitis of superficial ve... TECHNIQUE: Lower extremity taveras scale and Duplex Doppler evaluation of the deep venous system from the inguinal ligament through the calf veins. FINDINGS: REGION: Right lower extremity. THROMBI: Acute and chronic appearing thrombi. Varithena induced thrombus visualized at mid/med calf, prox/med calf, and mid/med thigh. COMPRESSIBILITY: Non-compressible segments. FLOW: Normal waveform and antegrade flow between 5 and 20 cm/s. OTHER: No patent varicose veins remain. REGION: Left lower extremity. THROMBI: Acute and chronic appearing thrombi.Varithena induced thrombus visualized at mid/med thigh and dist/med thigh. COMPRESSIBILITY: Non-compressible segments. OTHER: No patent varicose veins remain. *Exam performed in accordance with [facility] practice guidelines- Peripheral venous ultrasound, May 05, 2009. CONCLUSION: Post ablation occlusion of bilaterally treated incompetent varicose veins. No residual patent incompetent varicose veins remain Dictated by: Cesar Salcido MD on 01/26/2024 at 12:08 Approved by: Cesar Salcido MD on 01/26/2024 at 12:09
--- NOTE | 2024-01-26 11:28 | V.VEINS.HP ---
Varicose Veins Patient in today for follow up ultrasound post microfoam chemical ablation bilateral legs. Cesar Nogueira MD personally performed the services described in this documentation, as scribed by Libertad Britt RVT, RDMS in my presence and it is both accurate and complete. Libertad Nogueira RVT, RDMS, am scribing for, and in the presence of, Dr. Cesar Salcido and in the presence of the patient. thigh: bilateral, knee: bilateral, calf: bilateral, ankle: bilateral and alamo: bilateral aching, cramping, dull and tender 5 1 year Worsened in recent months: Yes standing and sitting elevating extremities and compression stockings Reports firmness, heaviness, restless legs, pruritus, limb pain, edema and leg edema History of lower extremity trauma: No Superficial thrombophlebitis: No Family history of varicose veins: yes Has patient had previous lower extremity venous surgery: No Patient has previously received the following treatment(s) for lower extremity varicose veins: Reports none Does patient have a history of : yes Does patient intend to have future pregnancies: no Has patient had lower extremity venous scan with relux testing: Yes Support hose used: Yes Problems walking or doing physical activity: Yes How does it affect you: difficulty standing at work for long periods Do you walk much: Yes Do you stand much: Yes Review of Systems ROS Narrative Cesar Nogueira MD personally performed the services described in this documentation, as scribed by Libertad Britt RVT, RDMS in my presence and it is both accurate and complete. I, Libertad Britt RVT, RDMS, am scribing for, and in the presence of, Dr. Cesar Salcido and in the presence of the patient. Status of ROS 10 or more systems reviewed and unremarkable except as noted in history and below Cardiovascular Reports: edema and swelling of feet/ankles Musculoskeletal Reports: extremity pain, extremity swelling, joint pain, joint swelling and muscle cramps Integumentary/Breast Reports: itching, skin tenderness and skin swelling [facility] Medical History (Updated 01/19/24 @ 15:41 by Juve Cardoso) Thrombophlebitis of superficial veins of both lower extremities ?I80.03 - Phlebitis and thrombophlebitis of superficial vessels of lower extremities, bilateral (ICD-10) Superficial thrombophlebitis of left leg ?I80.02 - Phlebitis and thrombophlebitis of superficial vessels of left lower extremity (ICD-10) Superficial thrombophlebitis of both legs ?I80.03 - Phlebitis and thrombophlebitis of superficial vessels of lower extremities, bilateral (ICD-10) 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, unspecified (ICD-10) Rotator cuff arthropathy of right shoulder ?M12.811 - Other specific arthropathies, not elsewhere classified, right shoulder (ICD-10) Hypertension ?I10 - Essential (primary) hypertension (ICD-10) Tachycardia ?R00.0 - Tachycardia, unspecified (ICD-10) Pain due to varicose veins of both lower extremities ?I83.813 - Varicose veins of bilateral lower extremities with pain (ICD-10) Surgical History (Updated 01/19/24 @ 15:37 by Juve Cardoso) S/P sclerotherapy of varicose veins ?Z98.890 - Other specified postprocedural states (ICD-10) ?Z86.79 - Personal history of other diseases of the circulatory system (ICD-10) Status post laser ablation of incompetent vein ?Z98.890 - Other specified postprocedural states (ICD-10) Status post laser ablation of incompetent vein ?Z98.890 - Other specified postprocedural states (ICD-10) Status post laser ablation of incompetent vein ?Z98.890 - Other specified postprocedural states (ICD-10) History of appendectomy ?Z90.49 - Acquired absence of other specified parts of digestive tract (ICD-10) History of cholecystectomy ?Z90.49 - Acquired absence of other specified parts of digestive tract (ICD-10) H/O: hysterectomy ?Z90.710 - Acquired absence of both cervix and uterus (ICD-10) History of arthroplasty of left ankle ?Z96.662 - Presence of left artificial ankle joint (ICD-10) Family History (Updated 12/04/23 @ 09:16 by Christal Lima RN) Grandmother Pain due to varicose veins of both lower extremities Family history of CHF (congestive heart failure) Family history of cancer Family history of diabetes mellitus Family history of hypertension Niece Lupus Grandfather Family history of COPD (chronic obstructive pulmonary disease) Family history of hypertension Father Family history of cancer Sister Family history of diabetes mellitus Family history of hypertension Mother Family history of hypertension Social History (Updated 12/04/23 @ 09:17 by Christal Lima RN) Within the past year, how often did you have a drink containing alcohol: monthly or less Smoking status: Current some day smoker Nicotine containing products detail: /2 PPD for 25 years Non-prescribed substance use: denies use Meds Home Medications and Allergies Home Medications ?Medication ?Instructions ?Recorded ?Confirmed ?Type triamcinolone acetonide 0.1 % applic topical BID 09/04/23 History topical cream furosemide 40 mg tablet (Lasix) 40 mg PO DAILY 12/04/23 12/04/23 History meloxicam 15 mg tablet 15 mg PO DAILY 12/04/23 12/04/23 History metoprolol succinate 50 mg 25 mg PO BID 12/04/23 12/04/23 History tablet,extended release 24 hr (Toprol XL) nicotine 14 mg/24 hr daily 1 patch transdermal DAILY 12/04/23 12/04/23 History transdermal patch pantoprazole 20 mg tablet,delayed 20 mg PO DAILY 12/04/23 12/04/23 History release (Protonix) potassium chloride 20 mEq oral 20 meq PO DAILY 12/04/23 12/04/23 History packet (Klor-Con) Allergies Allergy/AdvReac Type Severity Reaction Status Date / Time hydromorphone (From Dilaudid) Allergy Severe Swelling Verified 09/04/23 20:07 of the Eye Exam Narrative Exam Narrative: Cesar Nogueira MD personally performed the services described in this documentation, as scribed by Libertad Britt RVT, RDMS in my presence and it is both accurate and complete. Libertad Nogueira RVT, RDMS, am scribing for, and in the presence of, Dr. Cesar Salcido and in the presence of the patient. Constitutional Documenting provider has reviewed patient's vital signs: yes Common normals: oriented x3 Nutritional appearance: overweight Lymph Lymphatic: no lymphedema noted Cardio Peripheral pulses: posterior tibial pulses present and dorsalis pedis pulses present Extremity General: calf tenderness, edema and other findings Right lower extremity: lower leg Right lower leg: inspection and palpation Left lower extremity: lower leg Left lower leg: inspection and palpation Neuro Common normals: oriented x3 Results Imaging Venous US: Radiologist's impression: The ultrasound demonstrates Varithena induced thrombus visualized at mid/med calf, prox/med calf, and mid/med thigh. Varithena induced thrombus visualized at mid/med thigh and dist/med thigh. Assessment and Plan Assessment and Plan (1) Thrombophlebitis of superficial veins of both lower extremities: Plan Patient in today for follow up ultrasound of lower extremity following treatment of Varithena/microfoam completed on 01/19/24 and 01/21/24. ICesar MD personally performed the services described in this documentation, as scribed by Libertad Britt RVT, RDMS in my presence and it is both accurate and complete. ILibertad RVT, RDMS, am scribing for, and in the presence of, Dr. Cesar Salcido and in the presence of the patient.
--- NOTE | 2024-01-26 12:07 | W.VEIN ---
Discharge Plan Discharge Disposition: Home, Self-Care Discharge Medications: No Action triamcinolone acetonide 0.1 % cream TOPICAL BID metoprolol succinate [Toprol XL] 50 mg tablet extended release 24 hr 25 mg PO BID furosemide [Lasix] 40 mg tablet 40 mg PO DAILY potassium chloride [Klor-Con] 20 mEq packet 20 meq PO DAILY pantoprazole [Protonix] 20 mg tablet,delayed release (DR/EC) 20 mg PO DAILY meloxicam 15 mg tablet 15 mg PO DAILY nicotine 14 mg/24 hr patch 24 hour 1 patch transdermal DAILY Follow Up Appointments: Due to insurance not approving sclerotherapy. The patient is currently done with treatment and will call and return if any new problems or symptoms occur. Print Language: Serbian Discharge Date/Time: 01/26/24 12:11
== END 2024-01-26 12:11 | disposition home or self-care (01) ==
LOC: VC 11:27
PROVIDERS: PCP Radiology Diagnostic Radiology; Visit Provider Radiology Diagnostic Radiology
DX: I80.03 Phlebitis and thrombophlebitis of superficial vessels of lower extremities, bilateral (principal)
CPT/HCPCS: 93970; G0463

== ENCOUNTER 2024-02-01 12:55 | Outpatient (OUT) | payer OTHER, SELFPAY ==
--- NOTE | 2024-02-01 11:12 | V.VEINS.HP ---
Vital Signs 02/01/24 13:07 02/01/24 13:46 Height 5 ft 10 in Weight 99 kg BMI 31.3 BP 147/90 H 134/64 BP Location Left Brachial Right Brachial BP Position Sitting Sitting BP Cuff Size Adult Adult BP Source Automatic Cuff Manual Cuff Respiration 18 18 Pulse 100 H 74 Pulse Source Monitor Pulse Oximetry (%) 98 98 Oxygen Delivery Method Room Air Comment The patient's blood pressure is elevated. The patient's blood pressure is elevated. Varicose Veins Patient in this day for sclerotherapy Cesar Nogueira MD personally performed the services described in this documentation, as scribed by Juve Cardoso RN in my presence and it is both accurate and complete. IJuve RN, am scribing for, and in the presence of, Dr. Cesar Salcido and in the presence of the patient. thigh: bilateral, knee: bilateral, calf: bilateral, ankle: bilateral and alamo: bilateral aching, cramping, dull and tender 5 1 year Worsened in recent months: Yes standing and sitting elevating extremities and compression stockings Reports firmness, heaviness, restless legs, pruritus, limb pain, edema and leg edema History of lower extremity trauma: No Superficial thrombophlebitis: No Family history of varicose veins: yes Has patient had previous lower extremity venous surgery: No Patient has previously received the following treatment(s) for lower extremity varicose veins: Reports none Does patient have a history of : yes Does patient intend to have future pregnancies: no Has patient had lower extremity venous scan with relux testing: Yes Support hose used: Yes Problems walking or doing physical activity: Yes How does it affect you: difficulty standing at work for long periods Do you walk much: Yes Do you stand much: Yes Review of Systems ROS Narrative Cesar Nogueira MD personally performed the services described in this documentation, as scribed by Juve Cardoso RN in my presence and it is both accurate and complete. IJuve RN, am scribing for, and in the presence of, Dr. Cesar Salcido and in the presence of the patient. Status of ROS 10 or more systems reviewed and unremarkable except as noted in history and below Cardiovascular Reports: edema and swelling of feet/ankles Musculoskeletal Reports: extremity pain, extremity swelling, joint pain, joint swelling and muscle cramps Integumentary/Breast Reports: itching, skin tenderness and skin swelling [facility] Medical History (Updated 01/19/24 @ 15:41 by Juve Cardoso) Thrombophlebitis of superficial veins of both lower extremities ?I80.03 - Phlebitis and thrombophlebitis of superficial vessels of lower extremities, bilateral (ICD-10) Superficial thrombophlebitis of left leg ?I80.02 - Phlebitis and thrombophlebitis of superficial vessels of left lower extremity (ICD-10) Superficial thrombophlebitis of both legs ?I80.03 - Phlebitis and thrombophlebitis of superficial vessels of lower extremities, bilateral (ICD-10) 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, unspecified (ICD-10) Rotator cuff arthropathy of right shoulder ?M12.811 - Other specific arthropathies, not elsewhere classified, right shoulder (ICD-10) Hypertension ?I10 - Essential (primary) hypertension (ICD-10) Tachycardia ?R00.0 - Tachycardia, unspecified (ICD-10) Pain due to varicose veins of both lower extremities ?I83.813 - Varicose veins of bilateral lower extremities with pain (ICD-10) Surgical History (Updated 02/01/24 @ 14:42 by Juve Cardoso) S/P sclerotherapy of varicose veins ?Z98.890 - Other specified postprocedural states (ICD-10) ?Z86.79 - Personal history of other diseases of the circulatory system (ICD-10) S/P sclerotherapy of varicose veins ?Z98.890 - Other specified postprocedural states (ICD-10) ?Z86.79 - Personal history of other diseases of the circulatory system (ICD-10) Status post laser ablation of incompetent vein ?Z98.890 - Other specified postprocedural states (ICD-10) Status post laser ablation of incompetent vein ?Z98.890 - Other specified postprocedural states (ICD-10) Status post laser ablation of incompetent vein ?Z98.890 - Other specified postprocedural states (ICD-10) History of appendectomy ?Z90.49 - Acquired absence of other specified parts of digestive tract (ICD-10) History of cholecystectomy ?Z90.49 - Acquired absence of other specified parts of digestive tract (ICD-10) H/O: hysterectomy ?Z90.710 - Acquired absence of both cervix and uterus (ICD-10) History of arthroplasty of left ankle ?Z96.662 - Presence of left artificial ankle joint (ICD-10) Family History (Updated 12/04/23 @ 09:16 by Christal Lima, RN) Grandmother Pain due to varicose veins of both lower extremities Family history of CHF (congestive heart failure) Family history of cancer Family history of diabetes mellitus Family history of hypertension Niece Lupus Grandfather Family history of COPD (chronic obstructive pulmonary disease) Family history of hypertension Father Family history of cancer Sister Family history of diabetes mellitus Family history of hypertension Mother Family history of hypertension Social History (Updated 12/04/23 @ 09:17 by Christal Lima, ARTEM) Within the past year, how often did you have a drink containing alcohol: monthly or less Smoking status: Current some day smoker Nicotine containing products detail: 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 Non-prescribed substance use: denies use Meds Home Medications and Allergies Home Medications ?Medication ?Instructions ?Recorded ?Confirmed ?Type triamcinolone acetonide 0.1 % applic topical BID 09/04/23 History topical cream furosemide 40 mg tablet (Lasix) 40 mg PO DAILY 12/04/23 12/04/23 History meloxicam 15 mg tablet 15 mg PO DAILY 12/04/23 12/04/23 History metoprolol succinate 50 mg 25 mg PO BID 12/04/23 12/04/23 History tablet,extended release 24 hr (Toprol XL) nicotine 14 mg/24 hr daily 1 patch transdermal DAILY 12/04/23 12/04/23 History transdermal patch pantoprazole 20 mg tablet,delayed 20 mg PO DAILY 12/04/23 12/04/23 History release (Protonix) potassium chloride 20 mEq oral 20 meq PO DAILY 12/04/23 12/04/23 History packet (Klor-Con) Allergies Allergy/AdvReac Type Severity Reaction Status Date / Time hydromorphone (From Dilaudid) Allergy Severe Swelling Verified 09/04/23 20:07 of the Eye Exam Narrative Exam Narrative: ICesar MD personally performed the services described in this documentation, as scribed by Juve Cardoso RN in my presence and it is both accurate and complete. IJuve RN, am scribing for, and in the presence of, Dr. Cesar Salcido and in the presence of the patient. Constitutional Documenting provider has reviewed patient's vital signs: yes Common normals: oriented x3 Nutritional appearance: overweight Lymph Lymphatic: no lymphedema noted Cardio Peripheral pulses: posterior tibial pulses present and dorsalis pedis pulses present Extremity General: calf tenderness, edema and other findings Right lower extremity: lower leg Right lower leg: inspection and palpation Left lower extremity: lower leg Left lower leg: inspection and palpation Neuro Common normals: oriented x3 Assessment and Plan Assessment and Plan (1) Pain due to varicose veins of both lower extremities: Plan Additional sclerotherapy ICesar MD personally performed the services described in this documentation, as scribed by Juve Cardoso RN in my presence and it is both accurate and complete. IJuve RN, am scribing for, and in the presence of, Dr. Cesar Salcido and in the presence of the patient. Procedures Procedure Instructions Procedures sclerotherapy: Risks and benefits of the procedure were discussed at length and informed written consent was obtained.? Time-out procedure was performed and the correct patient and procedure were confirmed.? Staff present during time-out: Juve Cardoso RN and Cesar Salcido MD.? Patient prepped and procedure performed in usual sterile fashion. Injections performed by and Juve Cardoso RN Sclerosing Agent:?? 4cc 0.5% Polidocanol Site Injected: left leg Number of Injections: 21 Anesthesia: Supercooled air The patient tolerated the procedure well without complication.? Hemostasis was obtained and thigh-high compression stocking was applied by patient.? Instructed patient to wear stocking for at least 96 hours and sleep with it and only remove for showering.? Will wear stocking for 2 weeks.? The patient verbalizes understanding and states they will comply.? Patient was given post-procedure instructions. Patient was discharged in good condition.? Scheduled to undergo additional injection sclerotherapy on 02/05/2024
--- NOTE | 2024-02-01 11:14 | W.VEIN ---
Discharge Plan Discharge Disposition: Home, Self-Care Follow Up Appointments: 02/08/2024 Plan of Treatment: additional sclerotherapy Patient Instructions: Polidocanol (By injection) Print Language: Sinhala Discharge Date/Time: 02/01/24 14:55
--- NOTE | 2024-02-01 13:00 | VEIN_ITS ---
[address] [address] Patient Name: TAMY CHAPIN MRN: [id number] date: 1980 Sex: F Assigned Patient Location: Current Patient Location: Accession/Order Number: [id number] Exam Date: 02/01/2024 13:10 Report Date: 02/01/2024 13:51 At the request of: MAURICIO LYONS Procedure: VC INJ Sclerosing SOLMULT Vein EXAMINATION: VC INJ Sclerosing SOLMULT Vein HISTORY: I83.813 - Varicose veins of bilateral lower extremities w... COMPARISON: No relevant comparison available. TECHNIQUE: The risks and benefits of the procedure were explained at length to the patient and informed written consent was obtained. Juve Cardoso was present and assisted. The procedure was performed under sterile technique. The patient's leg was wrapped with Coban and postprocedural verbal and written instructions provided. SCLEROSANT: 4 cc, 0.5% polidocanol VEIN(S) INJECTED: 21 veins in the left leg VISUALIZATION: Ultrasound was not used to visualize the sclerosant ANESTHESIA: Supercooled air COMPLICATIONS: None VEIN/VC INJ Sclerosing SOLMULT Vein IMPRESSION: Technically successful sclerotherapy as described Electronically authenticated by: MAURICIO LYONS Date: 02/01/2024 13:51
[2024-02-01 13:07] VITALS: BP 147/90; PULSE 100; O2SAT 98; BMI 31.3
[2024-02-01 13:46] VITALS: BP 134/64; PULSE 74; O2SAT 98
== END 2024-02-01 14:55 | disposition home or self-care (01) ==
LOC: VC 12:55
PROVIDERS: PCP Radiology Diagnostic Radiology; Visit Provider Radiology Diagnostic Radiology
DX: I83.813 Varicose veins of bilateral lower extremities with pain (principal)
CPT/HCPCS: 36471

== ENCOUNTER 2024-02-08 14:52 | Outpatient (OUT) | payer OTHER, SELFPAY ==
--- NOTE | 2024-02-08 07:33 | V.VEINS.HP ---
Vital Signs 02/08/24 15:54 BP 130/62 BP Location Right Brachial BP Position Sitting BP Cuff Size Adult BP Source Manual Cuff Respiration 16 Pulse 98 H Pulse Source Monitor Pulse Oximetry (%) 97 Oxygen Delivery Method Room Air Comment The patient's blood pressure is elevated. Varicose Veins Patient in this day for sclerotherapy Raj Nogueira MD personally performed the services described in this documentation, as scribed by Juve Cardoso RN in my presence and it is both accurate and complete. Juve Nogueira RN, am scribing for, and in the presence of, Dr. Raj Helms and in the presence of the patient. thigh: bilateral, knee: bilateral, calf: bilateral, ankle: bilateral and alamo: bilateral aching, cramping, dull and tender 5 1 year Worsened in recent months: Yes standing and sitting elevating extremities and compression stockings Reports firmness, heaviness, restless legs, pruritus, limb pain, edema and leg edema History of lower extremity trauma: No Superficial thrombophlebitis: No Family history of varicose veins: yes Has patient had previous lower extremity venous surgery: No Patient has previously received the following treatment(s) for lower extremity varicose veins: Reports none Does patient have a history of : yes Does patient intend to have future pregnancies: no Has patient had lower extremity venous scan with relux testing: Yes Support hose used: Yes Problems walking or doing physical activity: Yes How does it affect you: difficulty standing at work for long periods Do you walk much: Yes Do you stand much: Yes Review of Systems ROS Narrative Raj Nogueira MD personally performed the services described in this documentation, as scribed by Juve Cardoso RN in my presence and it is both accurate and complete. Juve Nogueira RN, am scribing for, and in the presence of, Dr. Raj Helms and in the presence of the patient. Status of ROS 10 or more systems reviewed and unremarkable except as noted in history and below Cardiovascular Reports: edema and swelling of feet/ankles Musculoskeletal Reports: extremity pain, extremity swelling, joint pain, joint swelling and muscle cramps Integumentary/Breast Reports: itching, skin tenderness and skin swelling PFSH [facility] Medical History (Updated 01/19/24 @ 15:41 by Juve Cardoso) Thrombophlebitis of superficial veins of both lower extremities ?I80.03 - Phlebitis and thrombophlebitis of superficial vessels of lower extremities, bilateral (ICD-10) Superficial thrombophlebitis of left leg ?I80.02 - Phlebitis and thrombophlebitis of superficial vessels of left lower extremity (ICD-10) Superficial thrombophlebitis of both legs ?I80.03 - Phlebitis and thrombophlebitis of superficial vessels of lower extremities, bilateral (ICD-10) 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, unspecified (ICD-10) Rotator cuff arthropathy of right shoulder ?M12.811 - Other specific arthropathies, not elsewhere classified, right shoulder (ICD-10) Hypertension ?I10 - Essential (primary) hypertension (ICD-10) Tachycardia ?R00.0 - Tachycardia, unspecified (ICD-10) Pain due to varicose veins of both lower extremities ?I83.813 - Varicose veins of bilateral lower extremities with pain (ICD-10) Surgical History (Updated 02/01/24 @ 14:42 by Juve Cardoso) S/P sclerotherapy of varicose veins ?Z98.890 - Other specified postprocedural states (ICD-10) ?Z86.79 - Personal history of other diseases of the circulatory system (ICD-10) S/P sclerotherapy of varicose veins ?Z98.890 - Other specified postprocedural states (ICD-10) ?Z86.79 - Personal history of other diseases of the circulatory system (ICD-10) Status post laser ablation of incompetent vein ?Z98.890 - Other specified postprocedural states (ICD-10) Status post laser ablation of incompetent vein ?Z98.890 - Other specified postprocedural states (ICD-10) Status post laser ablation of incompetent vein ?Z98.890 - Other specified postprocedural states (ICD-10) History of appendectomy ?Z90.49 - Acquired absence of other specified parts of digestive tract (ICD-10) History of cholecystectomy ?Z90.49 - Acquired absence of other specified parts of digestive tract (ICD-10) H/O: hysterectomy ?Z90.710 - Acquired absence of both cervix and uterus (ICD-10) History of arthroplasty of left ankle ?Z96.662 - Presence of left artificial ankle joint (ICD-10) Family History (Updated 12/04/23 @ 09:16 by Christal Lima, RN) Grandmother Pain due to varicose veins of both lower extremities Family history of CHF (congestive heart failure) Family history of cancer Family history of diabetes mellitus Family history of hypertension Niece Lupus Grandfather Family history of COPD (chronic obstructive pulmonary disease) Family history of hypertension Father Family history of cancer Sister Family history of diabetes mellitus Family history of hypertension Mother Family history of hypertension Social History (Updated 12/04/23 @ 09:17 by Christal Lima, RN) Within the past year, how often did you have a drink containing alcohol: monthly or less Smoking status: Current some day smoker Nicotine containing products detail: 02/10 PPD for 25 years Non-prescribed substance use: denies use Meds Home Medications and Allergies Home Medications ?Medication ?Instructions ?Recorded ?Confirmed ?Type triamcinolone acetonide 0.1 % applic topical BID 09/04/23 History topical cream furosemide 40 mg tablet (Lasix) 40 mg PO DAILY 12/04/23 12/04/23 History meloxicam 15 mg tablet 15 mg PO DAILY 12/04/23 12/04/23 History metoprolol succinate 50 mg 25 mg PO BID 12/04/23 12/04/23 History tablet,extended release 24 hr (Toprol XL) nicotine 14 mg/24 hr daily 1 patch transdermal DAILY 12/04/23 12/04/23 History transdermal patch pantoprazole 20 mg tablet,delayed 20 mg PO DAILY 12/04/23 12/04/23 History release (Protonix) potassium chloride 20 mEq oral 20 meq PO DAILY 12/04/23 12/04/23 History packet (Klor-Con) Allergies Allergy/AdvReac Type Severity Reaction Status Date / Time hydromorphone (From Dilaudid) Allergy Severe Swelling Verified 09/04/23 20:07 of the Eye Exam Narrative Exam Narrative: IRaj MD personally performed the services described in this documentation, as scribed by Juve Cardoso RN in my presence and it is both accurate and complete. IJuve RN, am scribing for, and in the presence of, Dr. Raj Helms and in the presence of the patient.. Constitutional Documenting provider has reviewed patient's vital signs: yes Common normals: oriented x3 Nutritional appearance: overweight Lymph Lymphatic: no lymphedema noted Cardio Peripheral pulses: posterior tibial pulses present and dorsalis pedis pulses present Extremity General: calf tenderness, edema and other findings Right lower extremity: lower leg Right lower leg: inspection and palpation Left lower extremity: lower leg Left lower leg: inspection and palpation Neuro Common normals: oriented x3 Assessment and Plan Assessment and Plan (1) Pain due to varicose veins of both lower extremities: Plan additional sclerotherapy Raj Nogueira MD personally performed the services described in this documentation, as scribed by Juve Cardoso RN in my presence and it is both accurate and complete. Juve Nogueira RN, am scribing for, and in the presence of, Dr. Raj Helms and in the presence of the patient. Procedures Procedure Instructions Procedures sclerotherapy: Risks and benefits of the procedure were discussed at length and informed written consent was obtained.? Time-out procedure was performed and the correct patient and procedure were confirmed.? Staff present during time-out: Juve Cardoso RN and Raj Helms MD.? Patient prepped and procedure performed in usual sterile fashion. Injections performed by Dr. Helms and Juve Cardoso RN Sclerosing Agent:?? 4cc 0.5% Polidocanol Site Injected: right leg Number of Injections: 23 Anesthesia: Supercooled air The patient tolerated the procedure well without complication.? Hemostasis was obtained and thigh-high compression stocking was applied by patient.? Instructed patient to wear stocking for at least 96 hours and sleep with it and only remove for showering.? Will wear stocking for 2 weeks.? The patient verbalizes understanding and states they will comply.? Patient was given post-procedure instructions. Patient was discharged in good condition.? Plan of care complete at this time. Patient to f/u in future as necessary. Raj Nogueira MD personally performed the services described in this documentation, as scribed by Juve Cardoso RN in my presence and it is both accurate and complete. Juve Nogueira RN, am scribing for, and in the presence of, Dr. Raj Helms and in the presence of the patient.
--- NOTE | 2024-02-08 07:36 | W.VEIN ---
Discharge Plan Discharge Disposition: Home, Self-Care Outpatient Diagnostics: VC INJ Sclerosing SOLMULT Vein (Routine) Timeframe: 2 Weeks Facility: [facility] - Location: [facility] Ordered By: Cesar Salcido Plan of Treatment: additinal sclerotherapy Print Language: Czech Discharge Date/Time: 02/08/24 15:56
--- NOTE | 2024-02-08 14:53 | VEIN_ITS ---
[address] [address] Patient Name: TAMY CHAPIN MRN: [id number] date: 1980 Sex: F Assigned Patient Location: Current Patient Location: Accession/Order Number: [id number] Exam Date: 02/08/2024 14:53 Report Date: 02/08/2024 15:45 At the request of: MAURICIO LYONS Procedure: VC INJ Sclerosing SOLMULT Vein EXAMINATION: VC INJ Sclerosing SOLMULT Vein HISTORY: I83.813 - Varicose veins of bilateral lower extremities w... The risks and benefits of the procedure were explained at length to the patient and informed written consent was obtained. The procedure was performed under sterile technique. The patient's leg was wrapped with Coban and postprocedural verbal and written instructions provided. Juve Cardoso RN was present and assisted. SCLEROSANT: 2mL 0.5% Polidocanol. VEIN(S) INJECTED: 23 veins in the right leg. VISUALIZATION: Ultrasound was not used to visualize the sclerosant. ANESTHESIA: Supercooled air. COMPLICATIONS: None. Electronically authenticated by: ABEL COLES Date: 02/08/2024 15:45
[2024-02-08 15:54] VITALS: BP 130/62; PULSE 98; O2SAT 97
== END 2024-02-08 15:56 | disposition home or self-care (01) ==
LOC: VC 14:52
PROVIDERS: PCP Radiology Diagnostic Radiology; Visit Provider Radiology Diagnostic Radiology
DX: I83.813 Varicose veins of bilateral lower extremities with pain (principal)
CPT/HCPCS: 36471

== ENCOUNTER 2024-05-10 11:08 | Outpatient (OUT) | payer OTHER, SELFPAY ==
--- NOTE | 2024-05-10 11:13 | MM_ITS ---
Patient Name: TAMY CHAPIN MR#: [id number] : 1980 Exam Date: 05/10/2024 Ordering Doctor: DR Jorge L Rowell . This report includes an Addendum and supersedes previous reports for this exam. R case ADIOLOGY REPORT PROCEDURE: MM TOMOSYNTHESIS SCREENING BI COMPARISON: MG M[facility]M [facility]AD DIAG W CAD, 11/30/2017. INDICATIONS: Screening Calculator Name NCI Breast Cancer Risk Assessment Tool 5 Year Breast Cancer Risk 1.30% Lifetime Breast Cancer Risk 17.40% Personal Breast Cancer No Personal Ovarian Cancer No Treatments None Family Cancers Sister with breast cancer at age 34; Father with brain cancer at age 31. LOCATION: [facility] BREAST COMPOSITION: The breasts are heterogeneously dense,which may obscure small masses. FINDINGS: LEFT BREAST: No significant suspicious finding. RIGHT BREAST: Asymmetry superior aspect of the right breast, posterior depth on MLO view only only. RECOMMENDATIONS: ROUTINE MAMMOGRAM AND CLINICAL EVALUATION IN 12 MONTHS. PLEASE NOTE: A NORMAL MAMMOGRAM DOES NOT EXCLUDE THE POSSIBILITY OF BREAST CANCER. A CLINICALLY SUSPICIOUS PALPABLE LUMP SHOULD BE BIOPSIED. Dictated by: Carl Hernandez DO on 05/10/2024 at 16:12 Approved by: Carl Hernandez DO on 05/10/2024 at 16:19 ADDENDUM: FINDINGS: DIAGNOSTIC CATEGORY 0--INCOMPLETE: NEED ADDITIONAL IMAGING EVALUATION. RECOMMENDATIONS: ADDITIONAL MAMMOGRAPHIC VIEWS REQUIRED: RIGHT BREAST spot-compression/true lateral views, possible ultrasound recommended. Dictated by: Carl Hernandez DO on 05/10/2024 at 16:56 Approved by: Carl Hernandez DO on 05/10/2024 at 17:01
== END 2024-05-10 11:09 | disposition home or self-care (01) ==
LOC: MAMMO 11:09
PROVIDERS: PCP Family Medicine; Visit Provider Family Medicine
DX: Z12.31 Encounter for screening mammogram for malignant neoplasm of breast (principal); Z80.3 Family history of malignant neoplasm of breast; Z80.8 Family history of malignant neoplasm of other organs or systems
CPT/HCPCS: 77063; 77067

== ENCOUNTER 2024-07-25 09:43 | Outpatient (OUT) | payer OTHER, SELFPAY ==
--- OUTSIDE RECORDS SUMMARY | 2024-07-17 07:36 | XMS_ITS | Encounter Summary ---
Author Organization [facility] Address [address] [place] [address] Care Team Providers Care Ride Attendant Name Role Phone Jorge L Rowell MD Primary Care Provider [phone] Reason for Visit * Reason Comments Flank Pain Right side radiating to front, onset 3 days ago Encounter Details Date Type Department Care Team (Late st Contact Info) Description 07/17/2024 7:36 AM EDT - 07/17/2024 9:35 AM EDT [facility] [address] [place] [address] Darron Rosario, DO [facility] [place] [address] Hydroureteronephrosis (Primary Dx); Right flank pain Discharge Disposition: Home or Self Care Social History Tobacco Use Types Packs/Day Years Used Date Smoking Tobacco: Former Cigarettes Smokeless Tobacco: Never Tobacco Cessation:Counseling Given: Not Answered Alcohol Use Standard Drinks/Week Comments Not Currently 0 (1 standard drink = 0.6 oz pur e alcohol) AUDIT-C Answer Date Recorded Q1: How often do you have a drink containing alcohol? Never 07/17/2024 Q2: How many drinks containi ng alcohol do you have on a typical day when you are drinking? Patient does not drink Q3: How often do you have si x or more drinks on one occasion? Never 07/17/2024 Comments No Sex and Gender Information Value Date Recorded Sex Assigned at Not on file Legal Sex Female 2:55 PM EDT Gender Identity Not on file Sexual Orientation Not on file documented as of this encounter Last Filed Vital Signs Vital Sign Reading Time Taken Comments Blood Pressure 136/58 07/17/2024 9:29 AM EDT Pulse 67 07/17/2024 7:29 AM EDT Temperature 36.3 C (97.3 F) 07/17/2024 7:29 AM EDT Respiratory Rate 20 07/17/2024 7:29 AM EDT Oxygen Saturation 96% 07/17/2024 9:29 AM EDT Inhaled Oxygen Concentration - - Weight 108.9 kg (240 lb) 07/17/2024 8:16 AM EDT Height 170.2 cm (5' 7 ) 07/17/2024 8:16 AM EDT Body Mass Index 37.59 07/17/2024 8:16 AM EDT documented in this encounter Functional Status documented as of this encounter Discharge Instructions * Attachments The following attachments cannot be sent through Care Everywhere. * Hydronephrosis: General Info (Botswanan) * Hydronephrosis: Fast Facts: Video (Bots[place]an) * Flank Pain ([place]ots[place]an) documented in this encounter Medications at Time of Discharge acetaminophen (TYLENOL) 500 MG tablet Take 2 tablets by mouth every 6 hours as needed for Pain ondansetron (ZOFRAN) 4 MG tablet Take 1 tablet by mouth 3 times daily as needed for Nausea or Vomiting 8 tablet 07/17/2024 naproxen (NAPROSYN) 500 MG tablet Take 1 tablet by mouth 2 times daily as needed for Pain 20 tablet 1 07/17/2024 metoprolol succinate (TOPROL XL) 50 MG extended release tablet Take 1 tablet by mouth daily Rimegepant Sulfate (NURTEC PO) Take by mouth documented as of this encounter Plan of Treatment Not on file documented as of this encounter Procedures Procedure Name Priority Date/Time Associated Diagnosis Comments CT ABDOMEN PELVIS W IV CONTRAST STAT 07/17/2024 8:18 AM EDT CBC WITH AUTO DIFFERENTIAL STAT 07/17/2024 7:59 AM EDT LIPASE STAT 07/17/2024 7:59 AM EDT HEPATIC FUNCTION PANEL STAT 07/17/2024 7:59 AM EDT BASIC METABOLIC PANEL STAT 07/17/2024 7:59 AM EDT URINALYSIS WITH REFLEX TO CULTURE STAT 07/17/2024 7:33 AM EDT MICROSCOPIC URINALYSIS Routine 07/17/2024 7:33 AM EDT , URINE STAT 07/17/2024 7:33 AM EDT documented in this encounter Results * CT ABDOMEN PELVIS W IV CONTRAST Additional Contrast? None (07/17/2024 8:18 AM EDT) Anatomical Region Laterality Modality Abdomen, Pelvis, Hip Computed To mography 07/17/2024 8:42 AM EDT Impressions 07/17/2024 8:51 AM EDT 1. Minimal right hydroureteronephrosis with no downstream radiopaque stone, findings may represent recent passage of urolith. No nephrolithiasis. 2. Otherwise no acute CT findings in the abdomen or pelvis. Narrative 07/17/2024 8:51 AM EDT EXAMINATION: CT OF THE ABDOMEN AND PELVIS WITH CONTRAST 07/17/2024 8:09 am TECHNIQUE: CT of the abdomen and pelvis was performed with the administration of intravenous contrast. Multiplanar reformatted images are provided for review. Automated exposure control, iterative reconstruction, and/or weight based adjustment of the mA/kV was utilized to reduce the radiation dose to as low as reasonably achievable. COMPARISON: Abdominopelvic CT dated 10/27/2022. HISTORY: ORDERING SYSTEM PROVIDED HISTORY: right back/flank pain radiating to right abdomen TECHNOLOGIST PROVIDED HISTORY: right back/flank pain radiating to right abdomen Decision Support Exception - unselect if not a suspected or confirmed emergency medical condition->Emergency Medical Condition (MA) FINDINGS: Lower Chest: Lung bases are clear. No pericardial or pleural effusion. Organs: Cholecystectomy. No intra or extrahepatic biliary ductal dilation. The liver, spleen, pancreas, and bilateral adrenal glands are unremarkable. Kidneys exhibit symmetric enhancement. No suspicious renal mass. No nephrolithiasis. Minimal right hydroureteronephrosis. No radiopaque urolithiasis. GI/Bowel: Stomach is unremarkable. No enteric contrast was administered. No bowel obstruction. Her per appendix is surgically absent. Mild diffuse fatty infiltration throughout the pedroza of the large colon, likely due to obesity. Few scattered colonic diverticuli, without adjacent inflammatory change. Pelvis: Urinary bladder is unremarkable. Hysterectomy. No free fluid in the pelvis. No bulky pelvic lymphadenopathy. Peritoneum/Retroperitoneum: Abdominal aorta is unremarkable. No bulky lymphadenopathy. No ascites. Bones/Soft Tissues: No acute or suspicious bony findings. No bulky inguinal lymphadenopathy. Procedure Note Pedro Laguna MD - 07/17/2024 EXAMINATION: CT OF THE ABDOMEN AND PELVIS WITH CONTRAST 07/17/2024 8:09 am TECHNIQUE: CT of the abdomen and pelvis was performed with the administration of intravenous contrast. Multiplanar reformatted images are provided forreview. Automated exposure control, iterative reconstruction, and/or weightbased adjustment of the mA/kV was utilized to reduce the radiation dose to aslow as reasonably achievable. COMPARISON: Abdominopelvic CT dated 10/27/2022. HISTORY: ORDERING SYSTEM PROVIDED HISTORY: right back/flank pain radiating toright abdomen TECHNOLOGIST PROVIDED HISTORY: right back/flank pain radiating to right abdomen Decision Support Exception - unselect if not a suspected or confirmed emergency medical condition->Emergency Medical Condition (MA) FINDINGS: Lower Chest: Lung bases are clear. No pericardial or pleural effusion. Organs: Cholecystectomy. No intra or extrahepatic biliary ductaldilation. The liver, spleen, pancreas, and bilateral adrenal glands areunremarkable. Kidneys exhibit symmetric enhancement. No suspicious renal mass. No nephrolithiasis. Minimal right hydroureteronephrosis. No radiopaque urolithiasis. GI/Bowel: Stomach is unremarkable. No enteric contrast was administered.No bowel obstruction. Her per appendix is surgically absent. Mild diffuse fatty infiltration throughout the pedroza of the large colon, likely dueto obesity. Few scattered colonic diverticuli, without adjacentinflammatory change. Pelvis: Urinary bladder is unremarkable. Hysterectomy. No free fluid inthe pelvis. No bulky pelvic lymphadenopathy. Peritoneum/Retroperitoneum: Abdominal aorta is unremarkable. No bulky lymphadenopathy. No ascites. Bones/Soft Tissues: No acute or suspicious bony findings. No bulkyinguinal lymphadenopathy. IMPRESSION: 1. Minimal right hydroureteronephrosis with no downstream radiopaquestone, findings may represent recent passage of urolith. No nephrolithiasis. 2. Otherwise no acute CT findings in the abdomen or pelvis. Darron Bedoya Maddystephanie IM CT ORDERABLES Final Resul t * BMP (07/17/2024 7:59 AM EDT) Sodium 138 136 - 145 mmol/L 07/17/2024 7:59 AM [facility] Potassium 4.1 3.7 - 5.3 mmol/L 07/17/2024 7:59 AM [facility] Chloride 103 98 - 107 mmol/L 07/17/2024 7:59 AM [facility] CO2 24 20 - 31 mmol/L 07/17/2024 7:59 AM [facility] Anion Gap 11 9 - 16 mmol/L 07/17/2024 7:59 AM [facility] Glucose 90 74 - 99 mg/dL 07/17/2024 7:59 AM [facility] BUN 7 6 - 20 mg/dL 07/17/2024 7:59 AM [facility] Creatinine 0.6 0.50 - 0.90 mg/dL 07/17/2024 7:59 AM [facility] Est, Glom Filt Rate >90 >60 mL/min/1.7 3m2 07/17/2024 7:59 AM [facility] Comment: These results are not intended for [...] following therapy that affects renal tubular secretion. BUN/Creatinine Ratio 12 9 - 20 07/17/2024 7:59 AM [facility] Calcium 8.7 8.6 - 10.4 mg/dL 07/17/2024 7:59 AM [facility] Blood BLOOD SPECIMEN / Unknown 07/17/2024 7:59 AM EDT 07/17/2024 8:04 AM EDT us Darron Rosario DO CHEMISTRY ORDERABLES Final Re sult [facility] [address] [place] [address], [facility] [phone] * Hepatic Function Panel (07/17/2024 7:59 AM EDT) Pathologist [facility] Albumin 3.9 3.5 - 5.2 g/dL 07/17/2024 7:59 AM EDT [facility] Alkaline Phosphatase 83 35 - 104 U/L 07/17/2024 7:59 AM [facility] ALT 14 10 - 35 U/L 07/17/2024 7:59 AM [facility] AST 15 10 - 35 U/L 07/17/2024 7:59 AM [facility] Total Bilirubin <0.2 0.00 - 1.20 mg/dL 07/17/2024 7:59 AM [facility] Bilirubin, Direct <0.2 0.00 - 0.30 mg/dL 07/17/2024 7:59 AM [facility] Bilirubin, Indirect Can not be calculated 0.0 - 1.0 mg/dL 07/17/2024 7:59 AM [facility] Total Protein 7.4 6.6 - 8.7 g/dL 07/17/2024 7:59 AM [facility] Albumin/Globuli n Ratio 1.1 1.0 - 2.5 07/17/2024 7:59 AM [facility] Blood BLOOD SPECIMEN / Unknown 07/17/2024 7:59 AM EDT 07/17/2024 8:04 AM EDT Darron Rosario DO CHEMISTRY ORDERABLES Final Re sult [facility] [address] [phone] * Lipase (07/17/2024 7:59 AM EDT) Lipase 59 13 - 60 U/L 07/17/2024 7:59 AM EDT [facility] Blood BLOOD SPECIMEN / Unknown 07/17/2024 7:59 AM EDT 07/17/2024 8:04 AM EDT us Darron Rosario DO CHEMISTRY ORDERABLES Final Re sult [facility] [address] [phone] * (ABNORMAL) CBC with Diff (07/17/2024 7:59 AM EDT) WBC 10.2 3.5 - 11.3 k/uL 07/17/2024 7:59 AM [facility] RBC 4.57 3.95 - 5.11 m/uL 07/17/2024 7:59 AM [facility] Hemoglobin 14.2 11.9 - 15.1 g/dL 07/17/2024 7:59 AM [facility] Hematocrit 42.7 36.3 - 47.1 % 07/17/2024 7:59 AM [facility] MCV 93.4 82.6 - 102.9 fL 07/17/2024 7:59 AM [facility] MCH 31.1 25.2 - 33.5 pg 07/17/2024 7:59 AM [facility] MCHC 33.3 28.4 - 34.8 g/dL 07/17/2024 7:59 AM [facility] RDW 13.5 11.8 - 14.4 % 07/17/2024 7:59 [facility] Plate[facility] 243 138 - 453 k/uL 07/17/2024 7:59 AM [facility] MPV 9.4 8.1 - 13.5 fL 07/17/2024 7:59 AM [facility] NRBC Automated 0.0 0.0 per 100 WBC 07/17/2024 7:59 AM [facility] Neutrophils % 68(H) 36 - 65 % 07/17/2024 7:59 AM [facility] Lymphocytes % 25 24 - 43 % 07/17/2024 7:59 AM [facility] Monocytes % 6 3 - 12 % 07/17/2024 7:59 AM [facility] Eosinophils % 1 1 - 4 % 07/17/2024 7:59 AM [facility] Basophils % 0 0 - 2 % 07/17/2024 7:59 AM [facility] Immature Granulocytes % 0 0 % 07/17/2024 7:59 AM [facility] Neutrophils Absolute 6.92 1.50 - 8.10 k/uL 07/17/2024 7:59 AM [facility] Lymphocytes Absolute 2.58 1.10 - 3.70 k/uL 07/17/2024 7:59 AM [facility] Monocytes Absolute 0.57 0.10 - 1.20 k/uL 07/17/2024 7:59 AM [facility] Eosinophils Absolute 0.11 0.00 - 0.44 k/uL 07/17/2024 7:59 AM [facility] Basophils Absolute <0.03 0.00 - 0.20 k/uL 07/17/2024 7:59 AM [facility] Immature Granulocytes Absolute 0.04 0.00 - 0.30 k/uL 07/17/2024 7:59 AM [facility] Blood BLOOD SPECIMEN / Unknown 07/17/2024 7:59 AM EDT 07/17/2024 8:04 AM EDT Darron Rosario DO HEMATOLOGY ORDERABLES Final R esult Performing Organization Address [facility] de Phone Number [facility] [address] [phone] * Microscopic Urinalysis (07/17/2024 7:33 AM EDT) WBC, UA None 0 - 5 /HPF 07/17/2024 7:33 AM EDT [facility] RBC, UA None 0 - 2 /HPF 07/17/2024 7:33 AM EDT [facility] Epithelial Cells, UA None 0 - 25 /HPF 07/17/2024 7:33 AM EDT [facility] 07/17/2024 7:33 AM EDT 07/17/2024 8:04 AM EDT Darron Rosario DO URINE ORDERABLES Final Result Performing Organization Address [facility] Phone Number [facility] [address] [phone] * Urine Preg (Lab) (07/17/2024 7:33 AM EDT) , Urine NEGATIVE NEGATIVE 07/18/19 7:33 AM EDT [facility] Comment: Specimens with hCG levels near the threshold of the test (25 mIU/mL) may give a negative or indeterminate result. In such cases, another test should be performed with a new specimen in 48-72 hours. If early is suspected clinically in this setting, correlation with quantitative serum b-hCG level is suggested. [employer] has confirmed the use of plasma for this test. This has not been cleared or approved by the U.S. Food and Drug Administration. The FDA has determined that such clearance is not necessary. Urine (Urine) 07/17/2024 7:3 3 AM EDT 07/17/2024 8:04 AM EDT Darron Rosario DO URINE ORDERABLES Final Result Performing Organization Address [facility] de Phone Number [facility] [address] [phone] * Urinalysis with Reflex to Culture (07/17/2024 7:33 AM EDT) Color, UA Yellow Yellow 07/17/2024 7:33 AM EDT [facility] Turbidity UA Clear Clear 07/17/2024 7:33 AM EDT [facility] Glucose, Ur NEGATIVE NEGATIVE mg/dL 07/17/2024 7:33 AM EDT [facility] Bilirubin, Urine NEGATIVE NEGATIVE 07/17/2024 7:33 AM EDT [facility] Ketones, Urine NEGATIVE NEGATIVE mg/dL 07/17/2024 7:33 AM T [facility] Specific [place], UA 1.010 1.010 - 1.020 07/17/2024 7:33 AM EDT [facility] Urine Hgb NEGATIVE NEGATIVE 07/17/2024 7:33 AM EDT [facility] pH, Urine 6.5 5.0 - 9.0 07/17/2024 7:33 AM EDT [facility] Protein, UA NEGATIVE NEGATIVE mg/dL 07/17/2024 7:33 AM EDT [facility] Urobilinogen, Urine Normal 0.0 - 1.0 EU/dL 07/17/2024 7:33 AM EDT [facility] Nitrite, Urine NEGATIVE NEGATIVE 07/17/2024 7:33 AM EDT [facility] Leukocyte Esterase, Urine NEGATIVE NEGATIVE 07/17/2024 7:33 AM EDT [facility] Urine 07/17/2024 7:33 AM EDT 07/17/2024 8:04 AM EDT Darron Rosario DO URINE ORDERABLES Final Result [facility] [address] [phone] documented in this encounter Visit Diagnoses Diagnosis Hydroureteronephrosis- Primary Hydronephrosis Right flank pain Abdominal pain, unspecified site documented in this encounter Administered Medications Inactive Administered Medications - up to 3 most recent administrations Medication Order MAR Action Action Date Dose Rate Site iopamidol (ISOVUE-370) 76 % injection 75 mL 75 mL, IntraVENous, IMG ONCE PRN, 1 dose, Starting on 07/17/24 at 0752, Until 07/17/24 at 0822, Other Given 07/17/2024 8:22 AM EDT 75 mLs ketorolac (TORADOL) injection 15 mg 15 mg, IntraVENous, ONCE, 1 dose, On 07/17/24 at 0800, Do not administer for more than 5 days. Given 07/17/2024 8:14 AM EDT 15 mg ondansetron (ZOFRAN) injection 4 mg 4 mg, IntraVENous, ONCE, 1 dose, On 07/17/24 at 0800 Given 07/17/2024 8:13 AM EDT 4 mg sodium chloride 0.9 % bolus 1,000 mL 1,000 mL, IntraVENous, at 1,935.5 mL/hr, Administer over 31 Minutes, ONCE, On 07/17/24 at 0800, For 1 dose New Bag 07/17/2024 8:16 AM EDT 1,000 mLs 1935.5 mL/hr documented in this encounter Active and Recently Administered Medications Times are shown in EDT. Scheduled Medication Order 07/15/2024 07/16/2024 07/17/2024 ketorolac (TORADOL) injection 15 mg (COMPLETED) 15 mg, IntraVENous, ONCE, 1 dose, On 07/17/24 at 0800, Do not administer for more than 5 days. 0814 (Given - Provid er: Coni Philippe RN) ondansetron (ZOFRAN) injection 4 mg (COMPLETED) 4 mg, IntraVENous, ONCE, 1 dose, On 07/17/24 at 0800 0813 (Given - Provid er: Coni Philippe RN) sodium chloride 0.9 % bolus 1,000 mL (COMPLETED) 1,000 mL, IntraVENous, at 1,935.5 mL/hr, Administer over 31 Minutes, ONCE, On 07/17/24 at 0800, For 1 dose 0816 (New Bag - Prov ider: Coni Philippe RN)0911 (Stopped - Provider: Coni Philippe RN) PRN Medication Order 07/15/2024 07/16/2024 07/17/2024 iopamidol (ISOVUE-370) 76 % injection 75 mL (COMPLETED) 75 mL, IntraVENous, IMG ONCE PRN, 1 dose, Starting on 07/17/24 at 0752, Until 07/17/24 at 0822, Other 0822 (Given - Provid er: Libertad Lubin) documented in this encounter Care Teams Ride Attendant Relationship Specialty Start Date End Date Jorge L Rowell MD [address] [id number] PCP - General Family Medicine 08/05/23 documented as of this encounter
--- OUTSIDE RECORDS SUMMARY | 2024-07-25 09:45 | XMS_ITS | Encounter Summary ---
Author Organization [employer] Address [id number] [address] [place] [address] Care Team Providers Care Er Nurse Name Role Phone Jorge L Rowell MD Primary Care Provider [phone] Encounter Details Date Type Department Care Team (Late Contact Info) Description 04/11/2022 Orders Only [facility] [address] [place] [phone] Key Bartlett CMA Breast cyst, right (Primary Dx); Breast pain; Family history of breast cancer Social History Tobacco Use Types Packs/Day Years Used Date Smoking Tobacco: Some Days Cigarettes 0.5 18 Smokeless Tobacco: Never Alcohol Use Standard Drinks/Week Comments No 0 (1 standard drink = 0.6 oz pur e alcohol) PHQ-2 Answer Date Recorded Total Score 0 04/15/2022 Childcare Answer Date Recorded Childcare Unknown 07/21/2018 Employment Answer Date Recorded Employment Unknown 07/21/2018 Purpose - Life Answer Date Recorded Purpose and direction in life Unknown Comments No Sex and Gender Information Value Date Recorded Sex Assigned at Not on file Legal Sex Female 11:21 AM EDT Gender Identity Not on file Sexual Orientation Not on file COVID-19 Exposure Response Date Recorded In the last month, have you been in contact with someone who was confirmed or suspected to have Coronavirus / COVID-19? No / Unsure 04/11/2022 8:14 AM EST documented as of this encounter Plan of Treatment Upcoming Encounters Date Type Department Care Team (Late Contact Info) Description 07/27/2024 10:00 AM EDT Telemedicine [facility] Di[facility] [address] [place] [id number] Chrissy Sow LD [address] [place] [address] documented as of this encounter Results * Ultrasound breast limited right (04/11/2022 8:46 AM EST) Anatomical Region Laterality Modality Breast, Chest Right Ultrasound 04/11/2022 8:43 AM EST Narrative 04/11/2022 3:00 PM EST US BREAST RT LIMITED LIMITED ULTRASOUND OF RIGHT BREAST: 04/11/2022 CLINICAL: Breast Cyst, Right. No prior exams were available for comparison. Color flow and real-time ultrasound of the right breast 9 o'clock region were performed. Lima scale images of the real-time examination were reviewed. 11 x 7 x 3 mm residual sebaceous cyst under the skin surface in the right breast at 9 o'clock anterior depth has decreased from 17 x 8 mm on ultrasound of 02/25/2022. Findings on this exam and recommendations were discussed with the patient by Dr. Castillo. IMPRESSION: BENIGN There is no sonographic evidence of malignancy. Small residual sebaceous cyst in the right breast for which clinical follow up is advised. A 1 year screening mammogram is recommended. Recommend supplemental screening with breast MRI. This patient has a lifetime risk of developing breast cancer greater than 20% based on OVERALL risk factors and tissue density. The [place] [employer] recommends BREAST MRI as an adjunct to screening mammography. Akila Castillo M.D. ra/:04/11/2022 15:00:24 letter sent: Neg Rec MRI Ultrasound BI-RADS: 2: Benign Procedure Note Akila Castillo MD - 04/14/2022 US BREAST RT LIMITED LIMITED ULTRASOUND OF RIGHT BREAST: 04/11/2022 CLINICAL: Breast Cyst, Right. No prior exams were available for comparison. Color flow and real-time ultrasound of the right breast 9 o'clock region were performed. Lima scale images of the real-time examination were reviewed. 11 x 7 x 3 mm residual sebaceous cyst under the skin surface in the right breast at 9 o'clock anterior depth has decreased from 17 x 8 mm on ultrasound of 02/25/2022. Findings on this exam and recommendations were discussed with the patient by Dr. Castillo. IMPRESSION: BENIGN There is no sonographic evidence of malignancy. Small residual sebaceous cyst in the right breast for which clinical follow up is advised. A 1 year screening mammogram is recommended. Recommend supplemental screening with breast MRI. This patient has a lifetime risk of developing breast cancer greater than 20% based on OVERALL risk factors and tissue density. The [place] [employer] recommends BREAST MRI as an adjunct to screening mammography. Akila Castillo M.D. ra/:04/11/2022 15:00:24 letter sent: Neg Rec MRI Ultrasound BI-RADS: 2: Benign us Gavi Mercer APRN-WAREHOUSE INVENTORY CLERK G US ORDERABLES Final Result documented in this encounter Visit Diagnoses Diagnosis Breast cyst, right Breast pain Mastodynia Family history of breast cancer Family history of malignant neoplasm of breast Breast cyst, right- Primary Breast pain Mastodynia Family history of breast cancer Family history of malignant neoplasm of breast Morbid obesity (CMS-HCC)- Primary Morbid obesity Pre-bariatric surgery nutrition evaluation documented in this encounter Additional Health Concerns Assessment Noted Time PHQ-9 Depression Total Score: 2 03/10/19 23 12:46 PM EST documented as of this encounter Care Teams Er Nurse Relationship Specialty Start Date End Date Jorge L Rowell MD PCP - General 04/30/17 documented as of this encounter
--- OUTSIDE RECORDS SUMMARY | 2024-07-25 09:45 | XMS_ITS | Encounter Summary ---
Author Organization [facility] Address [address] [place] [address] Care Team Providers Care Kennel Operator Name Role Phone Jorge L Rowell MD Primary Care Provider [phone] Encounter Details Date Type Department Care Team (Latest Contact Info) Description 07/17/2024 Travel Social History Tobacco Use Types Packs/Day Years Used Date Smoking Tobacco: Former Cigarettes Smokeless Tobacco: Never Alcohol Use Standard Drinks/Week Comments Not Currently [...] on file documented as of this encounter Functional Status documented as of this encounter Plan of Treatment Not on file documented as of this encounter Visit Diagnoses Not on filedocumented in this encounter Care Teams Kennel Operator Relationship Specialty Start Date End Date Jorge L Rowell MD [address] [place] [address] PCP - General Family Medicine 08/05/23 documented as of this encounter
--- OUTSIDE RECORDS SUMMARY | 2024-07-25 09:45 | XMS_ITS | Encounter Summary ---
Author Organization [employer] Address [id number] [address] [place] [address] Care Team Providers Care Hydropulper Name Role Phone Jorge L Rowell MD Primary Care Provider [phone] Encounter Details Date Type Department Care Team (Late st Contact Info) Description 04/03/2022 Telephone [facility] [address] [place] [phone] Mauri Wilcox CMA Social History Tobacco Use Types Packs/Day Years Used Date Smoking Tobacco: Some Days Cigarettes 0.5 18 Smokeless Tobacco: Never Alcohol Use Standard Drinks/Week Comments No 0 (1 standard drink = 0.6 oz pur e alcohol) PHQ-2 Answer Date Recorded Total Score 2 03/10/2022 Childcare Answer Date Recorded Childcare Unknown 07/21/2018 [...] have Coronavirus / COVID-19? No / Unsure 03/10/2022 8:41 AM EST documented as of this encounter Miscellaneous Notes * Telephone Encounter - Mauri Wilcox CMA - 04/03/2022 10:13 AM EST Called Sierra Brown on 04/03/22 and left a voice message for her to call the office and reschedule her appointment ON 04/11/2022. documented in this encounter Plan of Treatment Upcoming Encounters Date Type Department Care Team (Late st Contact Info) Description 07/27/2024 10:[address] [facility] Dieticians [address] [phone] Chrissy Sow LD [address] [place] [address] documented as of this encounter Visit Diagnoses Not on filedocumented in this encounter Additional Health Concerns Assessment Noted Time PHQ-9 Depression Total Score: 2 03/10/19 23 12:46 PM EST documented as of this encounter Care Teams Hydropulper Relationship Specialty Start Date End Date Jorge L Rowell MD PCP - General 04/30/17 documented as of this encounter
--- OUTSIDE RECORDS SUMMARY | 2024-07-25 09:45 | XMS_ITS | Clinical Summary ---
Author Organization [employer] Address [id number] [address] [place] [address] Care Team Providers Care Instructor Traffic Safety Name Role Phone Jorge L Rowell MD Primary Care Provider [phone] Allergies Active Allergy Reactions Criticality Noted Date Comments Hydromorphone Facial Swelling High 2017 Medications erenumab-aooe 70 mg/mL auto-injector Inject 140 mg under the skin every 30 (thirty) days. Active triamcinolone (KENALOG) 0.1 % cream Apply 1 Application topically as needed. 2 Active rimegepant (NURTEC ODT) 75 mg tablet,disinteg rating Dissolve on tongue as needed. Active ondansetron (ZOFRAN) 4 mg tabletIndicatio ns:Postoperativ e nausea Take 1 tablet (4 mg total) by mouth every 8 (eight) hours as needed for nausea or vomiting. 30 tablet 2 Active metoprolol tartrate (LOPRESSOR) 50 mg tablet Take 1 tablet (50 mg total) by mouth in the morning and 1 tablet (50 mg total) before bedtime. Active meloxicam (MOBIC) 15 mg tablet Take 1 tablet (15 mg total) by mouth in the morning. 4 Active KLOR-CON M20 20 mEq CR tablet Take 1 tablet (20 mEq total) by mouth in the morning and 1 tablet (20 mEq total) before bedtime. TAKE 1 BY MOUTH TWICE DAILY WITH FOOD. 4 Active pantoprazole (PROTONIX) 40 mg EC tablet Take 1 tablet (40 mg total) by mouth every morning before breakfast. 4 Active promethazine (PHENERGAN) 25 mg tablet Take 1 tablet (25 mg total) by mouth daily as needed for nausea. 4 Active furosemide (LASIX) 40 mg tablet Take 1 tablet (40 mg total) by mouth daily. 4 Active Active Problems Problem Noted Date Diagnosed Date Breast cyst, right 03/10/2022 Breast pain 03/10/2022 Family history of breast cancer 03/04/2022 Overview (03/04/2022): Sister at age 35 Labral tear of shoulder, right, initial encounte r 05/02/2021 Overview (05/02/2021): Added automatically from request for surgery [id number] Biceps tendinitis, right 05/02/2021 Overview (05/02/2021): Added automatically from request for surgery [id number] Traumatic complete tear of right rotator cuff Pituitary microadenoma 05/22/2020 Encounters Date Type Department Care Team Description 06/24/2024 11:30 AM EDT Telemedicine [facility] Dieticians [address] [place] [phone] Chrissy Sow LD Morbid obesity ([facility]) (Primary Dx); Pre-bariatric surgery nutrition evaluation 05/26/2024 10:00 AM EDT Telemedicine [facility] Dieticians [address] [place] [phone] Chrissy Sow LD Morbid obesity ([facility]) (Primary Dx); Pre-bariatric surgery nutrition evaluation 05/24/2024 1:43 PM EDT - 05/24/2024 11:59 PM EDT Hospital Encounter [facility] - Mammography/DEXA Imaging [address] [place] [phone] Abnormal mammogram Discharge Disposition: Home 05/24/2024 Travel 05/10/2024 Ancillary Procedure [facility] External Film Storage [facility] [place] [address] Encounter for screening mammogram for malignant neoplasm of breast 04/25/2024 9:30 AM EDT Telemedicine [facility] Dieticians [address] [phone] Chrissy Sow LD Morbid obesity (CMS-HCC) (Primary Dx); Pre-bariatric surgery nutrition evaluation from Last 3 Months Family History Medical History Relation Name Comments Cancer Father brain Stroke Father No Known Problems Mother Pancreatic cancer Paternal great-grandfather Breast cancer Sister May Anesthesia problems Neg Hx Bowen Breast Cancer Neg Hx Colon cancer Neg Hx Relation Name Status Comments Father Mother Alive Paternal great-grandfather Other Sister May Social History Tobacco Use Types Packs/Day Years Used Date Smoking Tobacco: Some Days Cigarettes 0.5 18 Smokeless Tobacco: Never Tobacco Cessation:Ready to Q uit: No; Counseling Given: No Alcohol Use Standard Drinks/Week Comments No 0 (1 standard drink = 0.6 oz pur e alcohol) PHQ-2 Answer Date Recorded Total Score 0 04/15/2022 Childcare Answer Date Recorded Childcare Unknown 07/21/2018 Employment Answer Date Recorded Employment Unknown 07/21/2018 Hunger Screening Answer Date Recorded Within the past 12 months we worried whether our food would run out before we got money to buy more. Never True 10/05/2022 Within the past 12 months th e food we bought just didn't last and we didn't have money to get more. Never True 10/05/2022 Purpose - Life Answer Date Recorded Purpose and direction in life Unknown Comments No Sex and Gender Information Value Date Recorded Sex Assigned at Not on file Legal Sex Female 11:21 AM EDT Gender Identity Not on file Sexual Orientation Not on file Last Filed Vital Signs Vital Sign Reading Time Taken Comments Blood Pressure 142/91 11/27/2023 8:42 AM EDT Pulse 84 11/27/2023 8:42 AM EDT Temperature 36.6 C (97.8 F) 10/05/2022 8:56 PM EDT Respiratory Rate 18 10/05/2022 8:56 PM EDT Oxygen Saturation 96% 10/05/2022 10:30 PM EDT Inhaled Oxygen Concentration - - Weight 114.3 kg (252 lb) 06/24/2024 11:00 AM EDT Height 170.2 cm (5' 7 ) 05/24/2024 1:48 PM EDT Body Mass Index 39.47 05/24/2024 1:48 PM EDT Plan of Treatment Upcoming Encounters Date Type Department Care Team (Late st Contact Info) Description 07/27/2024 10:00 AM EDT Telemedicine [facility] Dieticians [address] [phone] Chrissy Sow LD [address] [place] [address] Health Maintenance Due Date Last Done Comments Tobacco Counseling 1980 Depression Screening 04/16/2023 04/15/2022 Tobacco Screening 10/06/2023 10/05/2022 COVID-19 Vaccine (4 - 2023-2 5 season) 2023 02/22/2021, 05/31/2020, 05/10/2020 DTaP,Tdap and Td Vaccines (2 - Td or Tdap) 05/08/2024 05/08/2014 Influenza Vaccine 10/10/2024 12/11/2020, , 11/14/2020, Additional history exists Adult BMI Follow Up Plan 12/10/2024 12/11/2023 Adult BMI Screening 06/24/2025 06/24/2024 Medical Devices Implanted Type Area Milk Vendor Device Identifier Shelf Expiration Date Model / Serial / Lot [place] Sut 4.75mm Swivelock Cls Eylt Vnt Pk 19.1mm Strl Disp Cls Use [id number] Ea=Bill Only - [id number] Implanted:Qty: 1 on 05/29/2021 by Luigi Vargas MD at [facility] [place] Right: Shoulder Ar[employer]rex 11/08/2025 [id number] / / [id number] Procedures Procedure Name Priority Date/Time Associated Diagnosis Comments MAMM DIAGNOSTIC UNILAT RT W CAD Routine 05/24/2024 1:57 PM EDT Abnormal mammogram MAMM SCREENING BILATERAL W CAD Routine 05/10/2024 12:00 AM EDT Encounter for screening mammogram for malignant neoplasm of breast from Last 3 Months Results * Mammography diagnostic unilateral right with CAD (05/24/2024 1:57 PM EDT) Anatomical Region Laterality Modality Breast Right Mammography 05/24/2024 1:57 PM EDT Narrative 05/24/2024 2:09 PM EDT TAMY DE LA FUENTEILL 1980 [id number] EXAM: MAMM DIAGNOSTIC UNILAT RT W CAD, 05/24/2024 1:44 PM CLINICAL INDICATIONS: Abnormal mammogram, Patient returns for additional imaging of an abnormality visualized on screening mammography from [facility]. COMPARISON: Outside mammogram 05/10/2024 and [place] mammogram from 02/25/2022 TECHNIQUE: Supplemental views of the right breast were obtained for diagnostic workup. Digital tomosynthesis images were obtained, with creation of synthetic 2D views. Computer aided detection was utilized. FINDINGS: There are scattered areas of fibroglandular density. There are no suspicious masses, calcifications, or areas of architectural distortion. IMPRESSION: No mammographic evidence of malignancy. BI-RADS: BI-RADS 1 - Negative RECOMMENDATION: Routine screening mammogram in 1 year. Given personal elevated risk of malignancy greater than 20% lifetime risk (specifically 20.1 % Meliza life time risk), MRI may be considered for supplemental screening. This is recommended to be performed at alternating 6 month intervals with screening mammography. Patient was given the results before leaving the department. Finalized by Dk Perez MD on 05/24/2024 2:09 PM 1 b MAMM 1 YR FDA Accredited Performing Facility: [facility] - Mammography/DEXA Imaging [address] [facility] [address] Procedure Note Dk Perez MD - 05/24/2024 TAMY SRIVASTAVA TAVARES 1980 [id number] EXAM: MAMM DIAGNOSTIC UNILAT RT W CAD, 05/24/2024 1:44 PM CLINICAL INDICATIONS: Abnormal mammogram, Patient returns for additionalimaging of an abnormality visualized on screening mammography from [facility]. COMPARISON: Outside mammogram 05/10/2024 and [place] mammogram from02/25/2022 TECHNIQUE: Supplemental views of the right breast were obtained for diagnosticworkup. Digital tomosynthesis images were obtained, with creation ofsynthetic 2D views. Computer aided detection was utilized. FINDINGS: There are scattered areas of fibroglandular density. There are no suspicious masses, calcifications, or areas of architecturaldistortion. IMPRESSION: No mammographic evidence of malignancy. BI-RADS: BI-RADS 1 - Negative RECOMMENDATION: Routine screening mammogram in 1 year. Given personal elevated risk of malignancy greater than 20% lifetime risk(specifically 20.1 % Meliza life time risk), MRI may be considered forsupplemental screening. This is recommended to be performed at alternating6 month intervals with screening mammography. Patient was given the results before leaving the department. Finalized by Dk Perez MD on 05/24/2024 2:09 PM 1 b MAMM 1 YR FDA Accredited Performing Facility: [facility] - Mammography/DEXA Imaging [address] [facility] [address] Jorge L Rowell MD IMG MAMMOGRAPHY ORDERABLES Maddi coronado Result * Mammography screening bilateral with CAD (05/10/2024 12:00 AM EDT) us Scanning Provider External IMG MAMMOGRAPHY ORDER SARAH Final Result from Last 3 Months Insurance [employer] [employer] Care Teams Instructor Traffic Safety Relationship Specialty Start Date End Date Jorge L Rowell MD PCP - General 04/30/17
--- OUTSIDE RECORDS SUMMARY | 2024-07-25 09:45 | XMS_ITS | Encounter Summary ---
Author Organization [employer] Address [id number] [address] [place] [address] Care Team Providers Care Sales Outfitter Name Role Phone Jorge L Rowell MD Primary Care Provider [phone] Encounter Details Date Type Department Care Team (Late Contact Info) Description 04/01/2022 Orders Only [facility] [address] [facility] [address] [place] [address] Mauri Wilcox, [facility] Social History Tobacco Use Types Packs/Day Years [...] Info) Description 07/27/2024 10:00 AM EDT Telemedicine [facility] Dieticians [address] [phone] Chrissy Sow, AMANDA [address] [place] [address] documented as of this encounter Visit Diagnoses Not on filedocumented in this encounter Additional Health Concerns Assessment Noted Time PHQ-9 Depression Total Score: 2 03/10/19 23 12:46 PM EST documented as of this encounter Care Teams Sales Outfitter Relationship Specialty Start Date End Date Jorge L Rowell MD PCP - General 04/30/17 documented as of this encounter
--- OUTSIDE RECORDS SUMMARY | 2024-07-25 09:45 | XMS_ITS | Encounter Summary ---
Author Organization [employer] Address [facility] [id number] [address] [place] [address] Care Team Providers Care Banquet Prep Cook Name Role Phone Jorge L Rowell MD Primary Care Provider [phone] Encounter Details Date Type Department Care Team (Late st Contact Info) Description 02/20/2022 Telephone [facility] [address] [place] [place] [address] Grazyna Estrella Social History Tobacco Use Types Packs/Day Years Used Date Smoking Tobacco: Some Days Cigarettes 0.5 18 Smokeless Tobacco: Never Alcohol Use Standard Drinks/Week Comments No 0 (1 standard drink = 0.6 oz pur e alcohol) Childcare Answer Date Recorded Childcare Unknown 07/21/2018 [...] have Coronavirus / COVID-19? No / Unsure 02/20/2022 9:16 AM EST documented as of this encounter Miscellaneous Notes * Telephone Encounter - Grazyna Estrella - 02/20/2022 10:20 AM EST Central scheduling called regarding the patient's order. They also need an Ultrasound R Breast Limited order placed. The patient is already scheduled for both tests- they just need the ultrasound order placed as well. Thank you. documented in this encounter Plan of Treatment Upcoming Encounters Date Type Department Care Team (Late st Contact Info) Description 07/27/2024 10:00 AM EDT Telemedicine [facility] Dieticians [address] [phone] Chrissy Sow LD [address] [place] [address] documented as of this encounter Visit Diagnoses Not on filedocumented in this encounter Care Teams Banquet Prep Cook Relationship Specialty Start Date End Date Jorge L Rowell MD PCP - General 04/30/17 documented as of this encounter
--- NOTE | 2024-07-25 09:46 | US_ITS ---
The [address] [address] Patient Name: TAMY CHAPIN MRN: [id number] date: 1980 Sex: F Assigned Patient Location: US Current Patient Location: US Accession/Order Number: [id number] Exam Date: 07/25/2024 11:26 Report Date: 07/25/2024 11:28 At the request of: FRANCIA RODRIGUEZ MD Procedure: US renal bladder BILATERAL RENAL AND BLADDER ULTRASOUND CLINICAL HISTORY: kidney stones N20.0. Right flank pain. COMPARISON: CT 09/04/2023 Estimation of renal size is approximately 10.8 cm on the right and 11.0 cm on the left. No shadowing calculi or hydronephrosis are identified. No renal mass lesions were imaged. There is no perinephric fluid. The liver is echogenic and fatty infiltration is not excluded. The urinary bladder is partially distended with a volume of 178 mL. No contour or intraluminal abnormalities are seen. Bilateral ureteral jets are seen. The post void bladder residual is 20 mL. US/US renal bladder IMPRESSION: NO OBSTRUCTIVE UROPATHY. Impression dictated by: Trinity Mckeon M.D. 07/25/2024 11:28 AM Dictation Location: [place] [address] Electronically authenticated by: [id number] Y Date: 07/25/2024 11:28
--- OUTSIDE RECORDS SUMMARY | 2024-07-25 10:07 | XMS_ITS | CCD ---
Author Organization [facility]iniSyn[facility] Care Team Providers Care Foundry Worker Name Role Phone STEPANIC, ARIES C Unavailable [...] Unavailable HOY ., DR FELDMAN Consulting Unavailable LOMPOC, DR MAURICIO Fraser Consulting Unavailable Unavailable Primary Care Provider UnavailFrancia Izaguirre MD Primary Care Provider [phone] Francia Rowell MD Primary Care Provider [phone] JAYLEN BROWN Referring Unavailable HOY, FRANCIA M Primary Care Unavailable JAYLEN BROWN Referring Unavailable HOY, FRANCIA M Primary Care Unavailable BROWNJAYLEN N Referring Unavailable HOY, FRANCIA M Primary Care Unavailable HOY, FRANCIA M Referring Unavailable HOY, FRANCIA M Primary Care Unavailable JAYLEN BROWN Attending Unavailable HOY, FRANCIA M Referring Unavailable HOY, FRANCIA M Primary Care Unavailable HOY, FRANCIA M Referring Unavailable HOY, FRANCIA M Primary Care Unavailable Quoc ROYAL Attending Unavailable Hoy, Francia Referring Unavailable SURESH SALAZAR Attending Unavailable HOY, FRANCIA [...] Unavailable HOY, FRANCIA M Primary Care Unavailable Francia Rowell MD Primary Care Provider [phone] FRANCIA ROWELL M Primary Care Unavailable DARRON CAIN Attending Unavailable Allergies Allergy Classification Reported Allergen(s) Allergy Type Date of Onset Reaction(s) Facility (1 source) acetaminophen / oxyCODONE; Translations: [Percocet 5/325] Drug Allergy [facility] Repository (3 sources) HYDROmorphone; Translations: [Dilaudid] Drug Allergy [facility] Repository (1 source) egg extract Drug Allergy 7 [facility] Repository (13 sources) HYDROmorphone; Translations: [HYDROMORPHONE] Drug Allergy 8 Facial Swelling [facility] Medications Current Medications Medication Drug Class(es) Dates Sig (Normalized) Sig (Original) acetaminophen 500 mg oral tablet (1 source) take 2 tablets by mouth every six hours as needed for pain acetaminophen (TYLENOL) 500 MG tablet Take 2 tablets by mouth every 6 hours as needed for Pain Active 1 ml erenumab-aooe 70 mg/ml auto-injector (8 sources) inject 140 mg by subcutaneous injection every 30 days erenumab-aooe 70 mg/mL auto-injector Inject 140 mg under the skin every 30 (thirty) days. Active furosemide 40 mg oral tablet (8 sources) Loop Diuretic Start: 11-24-2023 take 1 tablet by mouth once daily furosemide (LASIX) 40 mg tablet Take 1 tablet (40 mg total) by mouth daily. 11/24/2023 Active ibuprofen 600 mg oral tablet (4 sources) Nonsteroidal Anti-inflammatory Drug Start: 10-05-2022 End: [...] tablet 05/29/2021 11/27/2023 Discontinued (Therapy completed) End: 07-17-2024 take 4 tablets by mouth every six hours as needed for pain ibuprofen (ADVIL;MOTRIN) 200 MG tablet Take 4 tablets by mouth every 6 hours as needed for Pain 07/17/2024 Discontinued (LIST CLEANUP) End: 11-27-2023 take 2 tablets by mouth every six hours as needed for pain ibuprofen (ADVIL,MOTRIN) 200 mg tablet Take 2 tablets (400 mg total) by mouth every 6 (six) hours as needed for pain. 11/27/2023 Discontinued (Therapy completed) meloxicam 15 mg oral tablet (8 sources) Nonsteroidal Anti-inflammatory Drug Start: 11-02-2023 take 1 tablet by mouth in the morning meloxicam (MOBIC) 15 mg tablet Take 1 tablet (15 mg total) by mouth in the morning. 11/02/2023 Active 24 hr metoprolol succinate 50 mg extended release oral tablet (10 sources) beta-Adrenergic Carlos take 1 tablet by mouth once daily metoprolol succinate (TOPROL XL) 50 MG extended release tablet Take 1 tablet by mouth daily Active take 1 tablet by page th in the morning, then take 1 tablet by mouth at bedtime metoprolol tartrate (LOPRESSOR) 50 mg tablet Take 1 tablet (50 mg total) by mouth in the morning and 1 tablet (50 mg total) before bedtime. Active naproxen 500 mg oral tablet (1 source) Nonsteroidal Anti-inflammatory Drug Start: 07-17-2024 take 1 tablet by mouth twice daily as needed for pain naproxen (NAPROSYN) 500 MG tablet Take 1 tablet by mouth 2 times daily as needed for Pain 20 tablet 1 07/17/2024 Active Start: 07-17-2024 take 1 tablet by page th twice daily as needed for pain naproxen (NAPROSYN) 500 MG tablet Take 1 tablet by mouth 2 times daily as needed for Pain 20 tablet 1 07/17/2024 Active ondansetron 4 mg oral tablet (11 sources) Serotonin-3 Receptor Antagonist Start: 07-17-2024 take 1 tablet by mouth three times daily as needed for nausea ondansetron (ZOFRAN) 4 MG tablet Take 1 tablet by mouth 3 times daily as needed for Nausea or Vomiting 8 tablet 07/17/2024 Active Start: 07-17-2024 End: 07-17-2024 4 mg, IntraVENous, ONCE, 1 d ose, On 07/17/24 at 0800 Start: 10-27-2022 End: 10-27-2022 ondansetron (ZOFRAN) injecti on 4 mg Start: 06-24-2021 take 1 tablet by page th every eight hours as needed for nausea ondansetron (ZOFRAN) 4 mg tablet Indications: Postoperative nausea Take 1 tablet (4 mg total) by mouth every 8 (eight) hours as needed for nausea or vomiting. 30 tablet 06/24/2021 Active pantoprazole 40 mg delayed release oral tablet (8 sources) Proton Pump Inhibitor Start: 11-02-2023 take 1 tablet by mouth once daily before breakfast pantoprazole (PROTONIX) 40 mg EC tablet Take 1 tablet (40 mg total) by mouth every morning before breakfast. 11/02/2023 Active microencapsulated potassium chloride 20 meq extended release oral tablet (8 sources) Start: 11-13-2023 take 1 tablet by [...] Active promethazine hydrochloride 25 mg oral tablet (8 sources) Phenothiazine Start: 10-27-2023 take 1 tablet by mouth once daily as needed for nausea promethazine (PHENERGAN) 25 mg tablet Take 1 tablet (25 mg total) by mouth daily as needed for nausea. 10/27/2023 Active rimegepant 75 mg disintegrating oral tablet (8 sources) rimegepant (NURTEC ODT) 75 mg tablet,disintegr ating Dissolve on tongue as needed. Active Rimegepant Sulfate (NURTEC PO) (2 sources) Rimegepant Sulfate (NURTEC PO) Take by mouth Active Rimegepant Sulfa te (NURTEC PO) Take by [...] completed) triamcinolone acetonide 1 mg/ml topical cream (8 sources) Corticosteroid Start: 04-09-2021 triamcinolone (KENALOG) 0.1 % cream Apply 1 Application topically as needed. 04/09/2021 Active Completed/Discontinued Medications Medication Drug Class(es) Dates Sig (Normalized) Sig (Original) iopamidol (ISOVUE-370) 76 % injection 75 mL (2 sources) Start: 07-17-2024 End: 07-17-2024 take 1 dose intravenously once 75 mL, IntraVENous, IMG ONCE PRN, 1 dose, Starting on 07/17/24 at 0752, Until 07/17/24 at 0822, Other Start: 10-27-2022 End: 10-27-2022 iopamidol (ISOVUE-370) 76 % injection 75 mL 1 ml ketorolac tromethamine 15 mg/ml cartridge (2 sources) Nonsteroidal Anti-inflammatory Drug, Cyclooxygenase Inhibitor Start: 07-17-2024 End: 07-17-2024 15 mg, IntraVENous, ONCE, 1 dose, On 07/17/24 at 0800, Do not administer for more than 5 days. Start: 10-27-2022 End: 10-27-2022 ketorolac (TORADOL) injectio n 15 mg 50 ml sodium chloride 9 mg/m l injection (2 sources) Start: 07-17-2024 End: 07-17-2024 1,000 mL, IntraVENous, at 1, 935.5 mL/hr, Administer over 31 Minutes, ONCE, On 07/17/24 at 0800, For 1 dose Start: 10-27-2022 End: 10-27-2022 sodium chloride 0.9 % bolus 1,000 mL Problems Active Problems Problem Classification Problem Date Documented Date Episodic/Chronic Abdominal pain (4 sources) Unspecified abdominal pain; Translations: [Left flank pain] Onset: 03-28-19 23 10-27-2022 Episodic Cardiac dysrhythmias (4 sources) Palpitations; Translations: [PALPITATIONS] Onset: 04-22-19 Episodic Esophageal disorders (2 sources) Gastroesophageal reflux disease; Translations: [Gastro-esophageal reflux disease without esophagitis] Onset: 11-27-1911-27-2023 Chronic Headache; including migraine (1 source) Migraine without aura, not intractable, without status migrainosus; Translations: [MIGRAINE W/O AURA NOT INTRCT W/O SE] Onset: 04-29-19 Chronic Nausea and vomiting (4 sources) Nausea with vomiting, unspecified; Translations: [NAUSEA WITH VOMITING UNSPECIFIED] Onset: 03-24-19 Episodic Noninfectious gastroenteritis (4 sources) Noninfective gastroenteritis and colitis, unspecified; Translations: [NONINFECTIVE GE AND COLITIS UNS] Onset: 03-19-19 Episodic Other diseases of kidney and ureters (1 source) Hydroureteronephrosis ; Translations: [Unspecified hydronephrosis] 07-17-2024 Episodic Other diseases of kidney and ureters (1 source) Unspecified hydronephrosis; Translations: [Unspecified hydronephrosis] Onset: 07-18-19 Episodic Other nutritional; endocrine; and metabolic disorders (7 sources) Morbid obesity; Translations: [Morbid (severe) obesity due to excess calories] 02-25-2024 Chronic Other nutritional; endocrine; and metabolic disorders (5 sources) Obese class II; Translations: [Obesity, Class II, BMI 35-39.9] 11-27-2023 Chronic Other nutritional; endocrine; and metabolic disorders (1 source) Morbid (severe) obesity due to excess calories; Translations: [Morbid (severe) obesity due to excess calories] Onset: 12-11-19 Chronic Other screening for suspected conditions (not mental disorders or infectious disease) (2 sources) Other abnormal and inconclusive findings on diagnostic imaging of breast; Translations: [Encounter for screening mammogram for malignant neoplasm of breast] Onset: 05-19-19 Episodic Unclassified (2 sources) Obesity, class 2; Translations: [Obesity, class 2] Onset: 11-27-19 Unclassified (1 source) New Patient Onset: 11-27-19 Unclassified (1 source) Nutrition Counseling Onset: 12-11-19 Past or Other Problems Problem Classification Problem Date Documented Da te Episodic/Chronic Administrative/social admission (8 sources) Patient encounter status; Translations: [Dietary counseling and surveillance] Onset: 12-11-2023 02-25-2024 Episodic Mood disorders (8 sources) Mood disorders Onset: 04-15-2022 04-15-2022 Nonmalignant breast conditions (16 sources) Cyst of right breast; Translations: [Solitary cyst of right breast] Onset: 03-10-2022 03-10-2022 Episodic Other and unspecified benign neoplasm (8 sources) Pituitary microadenoma; Translations: [Benign neoplasm of pituitary gland] Onset: 05-22-2020 05-13-2021 Episodic Other connective tissue disease (8 sources) Bicipital tendinitis, right shoulder; Translations: [Bicipital tenosynovitis] Onset: 05-02-2021 05-02-2021 Episodic Residual codes; unclassified (8 sources) Family history of breast cancer; Translations: [Family history of malignant neoplasm of breast] Onset: 03-04-2022 03-04-2022 Episodic Sprains and strains (16 sources) Strain of muscle(s) and tendon(s) of the rotator cuff of right shoulder, initial encounter; Translations: [Rotator cuff (capsule) sprain] Onset: 03-11-2021 05-02-2021 Episodic Results Test Name Value Interpretation Reference Range Facility [facility] 07-17-2024 Anion gap [Moles/Vol] 11 mmol/L 9 - 16 mmol/L [facility] Calcium [Mass/Vol] 8.7 mg/dL 8.6 - 10.4 mg/dL [facility] Chloride [Moles/Vol] 103 mmol/L 98 - 107 mmol/L [facility] CO2 [Moles/Vol] 24 mmol/L 20 - 31 mmol/L [facility] Creatinine [Mass/Vol] 0.6 mg/dL 0.50 - 0.90 mg/dL [facility] Est, Gloflor Valverdet Rate - PINF [facility] Comment on above: These results are not [...] that affects renal tubular secretion. Glucose [Mass/Vol] 90 mg/dL 74 - 99 mg/dL [facility] Potassium [Moles/Vol] 4.1 mmol/L 3.7 - 5.3 mmol/L [facility] Sodium [Moles/Vol] 138 mmol/L 136 - 145 mmol/L [facility] Urea nitrogen [Mass/Vol] 7 mg/dL 6 - 20 mg/dL [facility] Urea nitrogen/Creatini ne [Mass ratio] 12 mg/mg - [facility] Basic Metabolic Profon 07-17 Anion gap [Moles/Vol] 11 mmol/L Normal - [facility] Comment on above: Performed By: #### U HCG, UMICAO, UAX #### [facility] [address] [place] [address] Presser Machine: Mauricio Irby MD BUN/CRE Ratio 12 Normal - [facility] Comment on above: Performed By: #### U HCG, UMICAO, UAX #### [facility] [address] [place] [address] Presser Machine: Mauricio Irby MD Calcium [Mass/Vol] 8.7 mg/dL Normal 8.6-10.4 [facility] Comment on above: Performed By: #### U HCG, UMICAO, UAX #### [facility] [address] [place] [address] Presser Machine: Mauricio Irby MD Chloride [Moles/Vol] 103 mmol/L Normal 98-107 [facility] Comment on above: Performed By: #### U HCG, UMICAO, UAX #### [facility] [address] [place] [address] Presser Machine: Mauricio Irby MD CO2 [Moles/Vol] 24 mmol/L Normal 20-31 [facility] Comment on above: Performed By: #### U HCG, UMICAO, UAX #### [facility] [address] [place] [address] Presser Machine: Mauricio Irby MD Creatinine [Mass/Vol] 0.6 mg/dL Normal 0.50-0.90 [facility] Comment on above: Performed By: #### U HCG, UMICAO, UAX #### [facility] [address] [place] [address] Presser Machine: Mauricio Irby MD GFR/1.73 sq M.predicted among non-blacks MDRD (S/P/Bld) [Vol rate/Area] mL/min/{1.73_m2} Normal >60 [facility] Comment on above: Result Comment: [...] affects renal tubular secretion. Performed By: #### U HCG, UMICAO, UAX #### [facility] [address] [place] [address] Presser Machine: Mauricio Irby MD Glucose [Mass/Vol] 90 mg/dL Normal 74-99 [facility] Comment on above: Performed By: #### U HCG, UMICAO, UAX #### [facility] [address] [place], [place] [phone] Presser Machine: Mauricio Irby MD Potassium [Moles/Vol] 4.1 mmol/L Normal 3.7-5.3 [facility] Comment on above: Performed By: #### U HCG, UMICAO, UAX #### [facility] [address] [place], [place] [id number] Presser Machine: Mauricio Iryb MD Sodium [Moles/Vol] 138 mmol/L Normal 136-145 [facility] Comment on above: Performed By: #### U HCG, UMICAO, UAX #### [facility] [address] [place] [address] Presser Machine: Mauricio Irby MD Urea nitrogen [Mass/Vol] 7 mg/dL Normal 6-20 [facility] Comment on above: Performed By: #### U HCG, UMICAO, UAX #### [facility] [address] [place], [place] [id number] Presser Machine: Mauricio Irby MD CBC with Diffon 07-17-2024 Basophils (Bld) [#/Vol] [facility] Basophils/100 WBC (Bld) 0 % 0 - 2 % [facility] Eosinophils (Bld) [#/Vol] 0.11 10*3/uL [facility] Eosinophils/100 WBC (Bld) 1 % 1 - 4 % [facility] Erythrocyte distribution width (RBC) [Ratio] 13.5 % 11.8 - 14.4 % [facility] Hematocrit (Bld) [Volume fraction] 42.7 % 36.3 - 47.1 % [facility] Hemoglobin (Bld) [Mass/Vol] 14.2 g/dL 11.9 - 15.1 g/dL [facility] Immature granulocytes (Bld) [#/Vol] 0.04 10*3/uL [facility] Immature granulocytes/100 WBC (Bld) 0 % 0 [facility] Interpretation and review of laboratory results Abnormal [facility] Lymphocytes/100 WBC (Bld) 25 % 24 - 43 % [facility] Lymphocytes/100 WBC (Bld) 2.58 % [facility] MCH (RBC) [Entitic mass] 31.1 pg 25.2 - 33.5 pg [facility] MCHC (RBC) [Mass/Vol] 33.3 g/dL 28.4 - 34.8 g/dL [facility] MCV (RBC) [Entitic vol] 93.4 fL 82.6 - 102.9 fL [facility] Monocytes/100 WBC (Bld) 6 % 3 - 12 % [facility] Monocytes/100 WBC (Bld) 0.57 % [facility] Neutrophils/100 WBC (Bld) 68 % High 36 - 65 % [facility] Nucleated RBC/100 WBC (Bld) [Ratio] 0 % 0.0 per 100 WBC [facility] Platelet mean volume (Bld) [Entitic vol] 9.4 fL 8.1 - 13.5 fL [facility] Platelets (Bld) [#/Vol] 243 10*3/uL [facility] RBC (Bld) [#/Vol] 4.57 10*6/uL 3.95 - 5.1 1 m/uL [facility] Segmented neutrophils/100 WBC (Bld) 6.92 % [facility] WBC other (Bld) [#/Vol] 10.2 [facility] Abs. Basophil <0.03 Normal 0.00-0.20 [facility] Comment on above: Performed By: #### U HCG, [facility], UAX #### [facility] [address] [place], [place] [id number] Presser Machine: Mauricio Irby MD Abs.Imm.Granulocy te 0.04 k/uL Normal 0.00-0.30 [facility] Comment on above: Performed By: #### U HCG, [facility], UAX #### [facility] [address] [place] [address] Presser Machine: Mauricio Irby MD Abs.Neutrophil (Seg) 6.92 k/uL Normal 1.50-8.10 [facility] Comment on above: Performed By: #### U HCG, UMICAO, UAX #### [facility] [address] [place], [place] [id number] Presser Machine: Mauricio Irby MD Basophils/100 WBC (Bld) 0 % Normal 0-2 [facility] Comment on above: Performed By: #### U HCG, UMICAO, UAX #### [facility] [address] [place], [place] [id number] Presser Machine: Mauricio Irby MD Eosinophils (Bld) [#/Vol] 0.11 10*3/uL Normal 0.00-0.44 [facility] Comment on above: Performed By: #### U HCG, UMICAO, UAX #### [address] [place], [facility] Presser Machine: Mauricio Irby MD Eosinophils/100 WBC (Bld) 1 % Normal 1-4 [facility] Comment on above: Performed By: #### U HCG, UMICAO, UAX #### [address] [place], [place] [id number] Presser Machine: Mauricio Irby MD Erythrocyte distribution width (RBC) [Ratio] 13.5 % Normal 11.8-14.4 [facility] Comment on above: Performed By: #### U HCG, UMICAO, UAX #### [facility] [address] [place] [address] [place], [place] [id number] Presser Machine: Mauricio Irby MD Hematocrit (Bld) [Volume fraction] 42.7 % Normal 36.3-47.1 [facility] Comment on above: Performed By: #### U HCG, UMICAO, UAX #### [facility] [address] [place] [address] Presser Machine: Mauricio Irby MD Hemoglobin (Bld) [Mass/Vol] 14.2 g/dL Normal 11.9-15.1 [facility] Comment on above: Performed By: #### U HCG, [facility], UAX #### [facility] [address] [place], [place] [phone] Presser Machine: Mauricio Irby MD Immature granulocytes/100 WBC (Bld) 0 % Normal 0 [facility] Comment on above: Performed By: #### U HCG, [facility], UAX #### [facility] [address] [place], [place] [phone] Presser Machine: Mauricio Irby MD Lymphocytes (Bld) [#/Vol] 2.58 10*3/uL Normal 1.10-3.70 [facility] Comment on above: Performed By: #### U HCG, [facility], UAX #### [facility] [address] [place], [place] [phone] Presser Machine: Mauricio Irby MD Lymphocytes/100 WBC (Bld) 25 % Normal 24-43 [facility] Comment on above: Performed By: #### U HCG, [facility], UAX #### [facility] [address] [place], [place] [phone] Presser Machine: Mauricio Irby MD MCH (RBC) [Entitic mass] 31.1 pg Normal 25.2-33.5 [facility] Comment on above: Performed By: #### U HCG, UMICAO, UAX #### [facility] [address] [place], [place] [phone] Presser Machine: Mauricio Irby MD MCHC (RBC) [Mass/Vol] 33.3 g/dL Normal 28.4-34.8 [facility] Comment on above: Performed By: #### U HCG, UMICAO, UAX #### [facility] [address] [place], [place] [phone] Presser Machine: Mauricio Irby MD MCV (RBC) [Entitic vol] 93.4 fL Normal 82.6-102.9 [facility] Comment on above: Performed By: #### U HCG, UMICAO, UAX #### [facility] [address] [place], [place] [phone] Presser Machine: Mauricio Irby MD Monocytes (Bld) [#/Vol] 0.57 10*3/uL Normal 0.10-1.20 [facility] Comment on above: Performed By: #### U HCG, UMICAO, UAX #### [facility] [address] [place], [place] [phone] Presser Machine: Mauricio Irby MD Monocytes/100 WBC (Bld) 6 % Normal 3-12 [facility] Comment on above: Performed By: #### U HCG, UMICAO, UAX #### [facility] [address] [place], [facility] Presser Machine: Mauricio Irby MD Neutrophil (Seg) 68 % High 36-65 [facility] Comment on above: Performed By: #### U HCG, UMICAO, UAX #### [facility] [address] [place], [place] [id number] Presser Machine: Mauricio Irby MD NRBC Automated 0.0 per 100 WBC Normal 0.0 [facility] Comment on above: Performed By: #### U HCG, UMICAO, UAX #### [facility] [address] [place], [place] [phone] Presser Machine: Mauricio Irby MD Platelet mean volume (Bld) [Entitic vol] 9.4 fL Normal 8.1-13.5 [facility] Comment on above: Performed By: #### U HCG, UMICAO, UAX #### [facility] [address] [place] [address] Presser Machine: Mauricio Irby MD Platelets (Bld) [#/Vol] 243 10*3/uL Normal 138-453 [facility] Comment on above: Performed By: #### U HCG, UMICAO, UAX #### [facility] [address] [place] [address] Presser Machine: Mauricio Irby MD RBC (Bld) [#/Vol] 4.57 10*6/uL Normal 3.95-5.11 [facility] Comment on above: Performed By: #### U HCG, UMICAO, UAX #### [facility] [address] [place] [address] Presser Machine: Mauricio Irby MD WBC (Bld) [#/Vol] 10.2 10*3/uL Normal 3.5-11.3 [facility] Comment on above: Performed By: #### U HCG, [facility], UAX #### [facility] [address] [place], [place] [phone] Presser Machine: Mauricio Irby MD CT ABDOMEN PELVIS W IV CONTR Rylan 07-17-2024 CT ABDOMEN PELVIS W IV CONTRAST EXAMINATION: [...] suspicious bony findings. No bulky inguinal lymphadenopathy. IMPRESSION: 1. Minimal right hydroureteronephrosis with no downstream radiopaque stone, findings may represent recent passage of urolith. No nephrolithiasis. 2. Otherwise no acute CT findings in the abdomen or pelvis. Interpreted by: Pedro Laguna MD Signed by: Pedro Laguna MD 07/17/24 Final result Normal [facility] CT Abdomen and Pelvis W cont rast Osbaldo 07-17-2024 1. Minimal right hydroureteronephrosis with no downstream radiopaque stone, findings may represent recent passage of urolith. No nephrolithiasis. 2. Otherwise no acute CT findings in the abdomen or pelvis. [facility] RIS CONSOLIDATED EXAMINATION: CT OF [...] suspicious bony findings. No bulky inguinal lymphadenopathy. [facility] RIS CONSOLIDATED Pedro Laguna MD - 07/17/2024 EXAMINATION: CT [...] suspicious bony findings. No bulky inguinal lymphadenopathy. IMPRESSION: 1. Minimal right hydroureteronephrosis with no downstream radiopaque stone, findings may represent recent passage of urolith. No nephrolithiasis. 2. Otherwise no acute CT findings in the abdomen or pelvis. [facility] Radiology Study observation (narrative) [facility] CT Abdomen and Pelvis W cont rast IVOrdered By: Pedro Laguna on 07-17-2024 [facility] Work Phone: HCG, ,Urineon 07-17 Beta HCG ( test) Ql (U) Negative Normal NEG [facility] Comment on above: Result Comment: Spec imens with hCG levels near the threshold of the test (25 mIU/mL) may give a negative or indeterminate result. In such cases, another test should be performed with a new specimen in 48-72 hours. If early is suspected clinically in this setting, correlation with quantitative serum b-hCG level is suggested. [facility] [employer] has confirmed the use of plasma for this test. This has not been cleared or approved by the [place]. Food and Drug Administration. The FDA has determined that such clearance is not necessary. Performed By: #### U HCG, UMICAO, UAX #### [facility] [address] Dr. [place], [place] [id number] Presser Machine: Mauricio Irby MD Hepatic Function Panelon Albumin [Mass/Vol] 3.9 g/dL 3.5 - 5.2 g/dL [facility] Albumin/Globulin [Mass ratio] 1.1 {ratio} 1.0 - 2.5 [facility] ALP [Catalytic activity/Vol] 83 U/L 35 - 104 U/L [facility] ALT [Catalytic activity/Vol] 14 U/L 10 - 35 U/L [facility] AST [Catalytic activity/Vol] 15 U/L 10 - 35 U/L [facility] Bilirubin [Mass/Vol] mg/dL 0.00 - 1.20 mg/dL [facility] Bilirubin.direct [Mass/Vol] mg/dL 0.00 - 0.30 mg/dL [facility] Bilirubin.indirec t [Mass/Vol] Can not be calculated 0.0 - 1.0 mg/dL [facility] Protein [Mass/Vol] 7.4 g/dL 6.6 - 8.7 g/dL [facility] Lipaseon 07-17-2024 Lipase [Catalytic activity/Vol] 59 U/L 13 - 60 U/L [facility] Lipase [Catalytic activity/Vol] 59 U/L Normal 13-60 [facility] Comment on above: Performed By: #### U HCG, UMICAO, UAX #### [facility] [address] [place], [place] [phone] Presser Machine: Mauricio Irby MD Liver Profileon 07-17-2024 Albumin [Mass/Vol] 3.9 g/dL Normal 3.5-5.2 [facility] Comment on above: Performed By: #### U HCG, UMICAO, UAX #### [facility] [address] [place], [place] 9931983 Presser Machine: Mauricio Irby MD Albumin/Glob Ratio 1.1 Normal 1.0-2.5 [facility] Comment on above: Performed By: #### U HCG, UMICAO, UAX #### [facility] [address] [place], [place] [phone] Presser Machine: Mauricio Irby MD Alkaline Phos 83 U/L Normal 35-104 [facility] Comment on above: Performed By: #### U HCG, UMICAO, UAX #### [facility] [address] [place], [place] [phone] Presser Machine: Mauricio Irby MD ALT [Catalytic activity/Vol] 14 U/L Normal 10-35 [facility] Comment on above: Performed By: #### U HCG, UMICAO, UAX #### [facility] [address] [place] [address] Presser Machine: Maruicio Irby MD AST [Catalytic activity/Vol] 15 U/L Normal 10-35 [facility] Comment on above: Performed By: #### U HCG, UMICAO, UAX #### [facility] [address] [place] [address] Dr. [place], [place] [phone] Presser Machine: Mauricio Irby MD Bilirubin [Mass/Vol] mg/dL Normal 0.00-1.20 [facility] Comment on above: Performed By: #### U HCG, UMICAO, UAX #### [facility] [address] [place] [address] [place], [place] [phone] Presser Machine: Mauricio Irby MD Bilirubin, Indirect Can not be calculated Normal 0.0-1.0 [facility] Comment on above: Performed By: #### U HCG, UMICAO, UAX #### [address] [place] [address] Presser Machine: Mauricio Irby MD Bilirubin.indirec t [Mass/Vol] mg/dL Normal 0.00-0.30 [facility] Comment on above: Performed By: #### U HCG, UMICAO, UAX #### [address] [place], [place] [phone] Presser Machine: Mauricio Irby MD Protein [Mass/Vol] 7.4 g/dL Normal 6.6-8.7 [facility] Comment on above: Performed By: #### U HCG, UMICAO, UAX #### [address] [place] [address] Presser Machine: Mauricio Irby MD Microscopic Urinalysison Epithelial cells LM.HPF (Urine sed) [#/Area] None [facility] RBC LM.HPF (Urine sed) [#/Area] None [facility] WBC LM.HPF (Urine sed) [#/Area] None [facility] No Panel Informationon 07-[address] [facility] UA w/Reflex Cultureon 2024 Bilirubin, SemiQt,Ur Negative Normal NEG [facility] Comment on above: Performed By: #### U HCG, UMICAO, UAX #### [facility] [address] [place], [place] [phone] Presser Machine: Mauricio Irby MD Blood, Urine Negative Normal NEG [facility] Comment on above: Performed By: #### U HCG, UMICAO, UAX #### [facility] [address] [place], [place] [phone] Presser Machine: Mauricio Irby MD Clarity (U) Clear Normal CLEAR [facility] Comment on above: Performed By: #### U HCG, UMICAO, UAX #### [facility] [address] [place], [place] [phone] Presser Machine: Mauricio Irby MD Color (U) Yellow Normal YEL [facility] Comment on above: Performed By: #### U HCG, UMICAO, UAX #### [facility] [address] [place], [place] [phone] Presser Machine: Mauricio Irby MD Glucose Ql (U) Negative Normal NEG [facility] Comment on above: Performed By: #### U HCG, UMICAO, UAX #### [facility] [address] [place], [place] 1721983 Presser Machine: Mauricio Irby MD Ketones Ql (U) Negative Normal NEG [facility] Comment on above: Performed By: #### U HCG, UMICAO, UAX #### [facility] [address] [place], [place] [phone] Presser Machine: Mauricio Irby MD Leukocyte esterase Test strip Ql (U) Negative Normal NEG [facility] Comment on above: Performed By: #### U HCG, UMICAO, UAX #### [facility] [address] [place], [place] [phone] Presser Machine: Mauricio Irby MD Nitrite,Ur Negative Normal NEG [facility] Comment on above: Performed By: #### U HCG, UMICAO, UAX #### [facility] [address] [place], [place] [phone] Presser Machine: Mauricio Irby MD PH,Ur 6.5 Normal 5.0-9.0 [facility] Comment on above: Performed By: #### U HCG, UMICAO, UAX #### [facility] [address] [place] [address] Dr. [place], [place] [phone] Presser Machine: Mauricio Irby MD Protein Ql (U) Negative Normal NEG [facility] Comment on above: Performed By: #### U HCG, UMICAO, UAX #### [facility] [address] [place] [address] [place] [address] Presser Machine: Mauricio Irby MD Spec. [place],Ur 1.010 Normal 1.010-1.020 [facility] Comment on above: Performed By: #### U HCG, UMICAO, UAX #### [facility] [address] [place] [address] [place] [address] Presser Machine: Mauricio Irby MD Urobilinogen,Ur Normal Normal 0.0-1.0 [facility] Comment on above: Performed By: #### U HCG, UMICAO, UAX #### [address] [place] [address] Presser Machine: Mauricio Irby MD Urinalysis with Reflex to Cu ltureon 07-17-2024 Bilirubin Ql (U) Negative NEGATIVE [facility] Clarity (U) Clear Clear [facility] Color (U) Yellow Yellow [facility] Glucose Test strip (U) [Mass/Vol] Negative NEGATIVE mg/dL [facility] Hemoglobin Auto test strip Ql (U) Negative NEGATIVE [facility] Ketones (U) [Mass/Vol] Negative NEGATIVE mg/dL [facility] Leukocyte esterase Test strip Ql (U) Negative NEGATIVE [facility] Nitrite Ql (U) Negative NEGATIVE [facility] pH (U) 6.5 [pH] 5.0 - 9.0 [facility] Protein (U) [Mass/Vol] Negative NEGATIVE mg/dL [facility] Specific gravity (U) [Rel density] 1.01 1.010 - 1.020 [facility] Urobilinogen Qn (U) Normal 0.0 - 1.0 EU/dL [facility] Urinalysis,Microon 5 Epithelial cells LM Ql (Urine sed) None Normal 0-25 [facility] Comment on above: Performed By: #### U HCG, UMICAO, UAX #### [facility] [address] [place] [address] Presser Machine: Mauricio Irby MD Urine RBC's None Normal 0-2 [facility] Comment on above: Performed By: #### U HCG, UMICAO, UAX #### [facility] [address] [place] [address] Presser Machine: Mauricio Irby MD Urine WBC's None Normal 0-5 [facility] Comment on above: Performed By: #### U HCG, UMICAO, UAX #### [facility] [address] [place] [address] Presser Machine: Mauricio Irby MD Urine Preg (Lab)on 5 HCG ( test) Ql (U) Negative NEGATIVE [facility] Comment on above: Specimens with hCG l evels near the threshold of the test (25 mIU/mL) may give a negative or indeterminate result. In such cases, another test should be performed with a new specimen in 48-72 hours. If early is suspected clinically in this setting, correlation with quantitative serum b-hCG level is suggested. [employer] has confirmed the use of plasma for this test. This has not been cleared or approved by the U.S. Food and Drug Administration. The FDA has determined that such clearance is not necessary. [facility] MAMM DIAGNOSTIC UNILAT RT W CADon 05-24-2024 MAMM DIAGNOSTIC UNILAT RT W CAD MAMM DIAGNOSTIC UNILAT RT W CAD TAMY LO 1980 [id number] EXAM: MAMM DIAGNOSTIC UNILAT RT W CAD, 05/24/2024 1:44 PM CLINICAL INDICATIONS: Abnormal mammogram, Patient returns for additional imaging of an abnormality visualized on screening mammography from [facility]. COMPARISON: Outside mammogram 05/10/2024 and [place] mammogram from 02/25/2022 TECHNIQUE: Supplemental views of [...] 2:09 PM 1 b MAMM 1 YR Normal [facility] CBC AND AUTO DIFFon 12-02-19 ABSOLUTE BASOPHIL 0.0 X10E9/L Normal 0.0-0.2 [facility] Comment on above: Performed By: #### C BCA, 3016-3, 2498-4, LIVR, 2731-8, 2132-9, 67580-9, HA1C #### [facility] ([id number]) [address], [address] [place] [address] ABSOLUTE NEUTROPHIL 7.1 X10E9/L High 1.5-6.6 [facility] Comment on above: Performed By: #### C BCA, 3016-3, 2498-4, LIVR, 2731-8, 2132-9, 57734-3, HA1C #### [facility] ([id number]) [address], [address] [place] [address] Basophils/100 WBC (Bld) 0.4 % Normal [facility] Comment on above: Performed By: #### C BCA, 3016-3, 2498-4, LIVR, 2731-8, 2132-9, 31272-3, HA1C #### [facility] ([id number]) [address], [facility] [address] [place] [address] Eosinophils (Bld) [#/Vol] 0.1 10*3/uL Normal 0.0-0.4 [facility] Comment on above: Performed By: #### C BCA, 3016-3, 2498-4, LIVR, 2731-8, 2132-9, 08962-2, HA1C #### [facility] ([id number]) [address], [facility] [address] [place] [address] Eosinophils/100 WBC (Bld) 0.6 % Normal [facility] Comment on above: Performed By: #### C BCA, 3016-3, 2498-4, LIVR, 2731-8, 2132-9, 44030-0, HANicole #### [facility] ([id number]) [address], [facility] [address] [place] [address] Erythrocyte distribution width (RBC) [Ratio] 14.1 % Normal 11.5-15.0 [facility] Comment on above: Performed By: #### C BCA, 3016-3, 2498-4, LIVR, 2731-8, 2132-9, 07921-4, HA1C #### [facility] ([id number]) [address], [facility] [address] [place] [address] Hematocrit (Bld) [Volume fraction] 42.9 % Normal 35-47 [facility] Comment on above: Performed By: #### C BCA, 3016-3, 2498-4, LIVR, 2731-8, 2132-9, 12459-5, HA1C #### [facility] ([id number]) [address], [address] [place] [address] Hemoglobin (Bld) [Mass/Vol] 14.5 g/dL Normal 11.7-15.5 [facility] Comment on above: Performed By: #### C BCA, 3016-3, 2498-4, LIVR, 2731-8, 2132-9, 28102-8, HA1C #### [facility] ([id number]) [address], [address] [place] [address] Lymphocytes (Bld) [#/Vol] 2.5 10*3/uL Normal 1.0-3.5 [facility] Comment on above: Performed By: #### C BCA, 3016-3, 2498-4, LIVR, 2731-8, 2131-9, 16052-9, HA1C #### [facility] ([id number]) [address], [address] [place] [address] Lymphocytes/100 WBC (Bld) 24.0 % Normal [facility] Comment on above: Performed By: #### C BCA, 3016-3, 2498-4, LIVR, 2731-8, 2131-9, 73247-2, HA1C #### [facility] ([id number]) [address], [address] [place] [address] MCH (RBC) [Entitic mass] 31.9 pg Normal 27-34 [facility] Comment on above: Performed By: #### C BCA, 3016-3, 2498-4, LIVR, 2731-8, 2132-9, 16557-3, HA1C #### [facility] ([id number]) [address], [address] [place] [address] MCHC (RBC) [Mass/Vol] 33.9 g/dL Normal 32-36 [facility] Comment on above: Performed By: #### C BCA, 3016-3, 2498-4, LIVR, 2731-8, 2132-9, 56091-8, HA1C #### [facility] ([id number]) [address], [address] [place] [address] MCV (RBC) [Entitic vol] 94 fL Normal 80-100 [facility] Comment on above: Performed By: #### C BCA, 3016-3, 2498-4, LIVR, 2730-8, 2131-9, 84901-9, HA1C #### [facility] ([id number]) [address], [address] [place] [address] Monocytes (Bld) [#/Vol] 0.6 10*3/uL Normal 0-0.9 [facility] Comment on above: Performed By: #### C BCA, 3016-3, 2498-4, LIVR, 2730-8, 2131-9, 16930-1, HA1C #### [facility] ([id number]) [address], [address] [place] [address] Monocytes/100 WBC (Bld) 6.2 % Normal [facility] Comment on above: Performed By: #### C BCA, 3016-3, 2498-4, LIVR, 2730-8, 9, 38360-9, HANicole #### [facility] ([id number]) [address], [facility] [address] [place] [address] Neutrophils/100 WBC (Bld) 68.8 % Normal [facility] Comment on above: Performed By: #### C BCA, 3016-3, 2498-4, LIVR, 2730-8, 2131-9, 66757-4, HA1C #### [facility] ([id number]) [address], [address] [place] [address] Platelet mean volume (Bld) [Entitic vol] 8.3 fL Normal 7-12 [facility] Comment on above: Performed By: #### C BCA, 3016-3, 2498-4, LIVR, 2731-8, 2132-9, 74070-2, HA1C #### [facility] ([id number]) [address], [address] [place] [address] Platelets (Bld) [#/Vol] 268 10*3/uL Normal 150-450 [facility] Comment on above: Performed By: #### C BCA, 3016-3, 2498-4, LIVR, 2731-8, 2132-9, 33030-2, HA1C #### [facility] ([id number]) [address], [address] [place] [address] RBC COUNT 4.55 X10E12/L Normal 3.80-5.20 [facility] Comment on above: Performed By: #### C BCA, 3016-3, 2498-4, LIVR, 2731-8, 2132-9, 54453-7, HA1C #### [facility] ([id number]) [address], [address] [place] [address] WBC (Bld) [#/Vol] 10.3 10*3/uL Normal 4.0-11.0 [facility] Comment on above: Performed By: #### C BCA, 3016-3, 2498-4, LIVR, 2731-8, 2132-9, 43370-0, HA1C #### [facility] ([id number]) [address], [facility] [address] [place] [address] FL UGI WITH ESOPHAGUSon 10-2 -2023 FL UGI WITH ESOPHAGUS FL UGI WITH [...] Dubois DO on 12/02/2023 1:28 PM Normal [facility] HGB A1C (GLYCO-HGB)on 2023 Glucose [Mass/Vol] 100 mg/dL Normal [facility] Comment on above: Performed By: #### C BCA, 3016-3, 2498-4, LIVR, 1-8, 2131-9, 50034-2, HA1C #### [facility] ([id number]) [address], [address] [place] [address] HbA1c (Bld) [Mass fraction] 5.1 % Normal 4.4-5.6 [facility] Comment on above: Result Comment: NOTE ADA Guidelines Result HgbA1c Normal : less than 5.7 % Prediabetes : 5.7 % to 6.4 % Diabetes : > 6.4 % Use with caution in patients with abnormal hemoglobin variants as the half-life of red blood cells and in vivo glycation rates are affected. Performed By: #### C BCA, 3016-3, 2498-4, LIVR, 1-8, 2131-9, 17393-6, HA1C #### [facility] ([id number]) [address], [address] [place] [address] IRONon 12-02-2023 Iron [Mass/Vol] 87 ug/dL Normal 50-170 [facility] Comment on above: Performed By: #### C BCA, 3016-3, 2498-4, LIVR, 2731-8, 2132-9, 68270-5, HA1C #### [facility] ([id number]) [address], [address] [place] [address] LIVER PANELon 12-02-2023 Albumin [Mass/Vol] 3.6 g/dL Normal 3.2-5.3 [facility] Comment on above: Performed By: #### C BCA, 3016-3, 2498-4, LIVR, 2731-8, 2132-9, 08149-1, HA1C #### [facility] ([id number]) [address], [address] [place] [address] ALP [Catalytic activity/Vol] 58 U/L Normal 39-130 [facility] Comment on above: Performed By: #### C BCA, 3016-3, 2498-4, LIVR, 2731-8, 2132-9, 41769-3, HA1C #### [facility] ([id number]) [address], [address] [place] [address] ALT [Catalytic activity/Vol] 14 U/L Normal 0-31 [facility] Comment on above: Performed By: #### C BCA, 3016-3, 2498-4, LIVR, 2731-8, 2132-9, 40096-5, HA1C #### [facility] ([id number]) [address], [address] [place] [address] AST [Catalytic activity/Vol] 14 U/L Normal 0-41 [facility] Comment on above: Performed By: #### C BCA, 3016-3, 2498-4, LIVR, 2731-8, 2132-9, 11539-0, HA1C #### [facility] ([id number]) [address], [address] [place] [address] Bilirubin [Mass/Vol] 0.3 mg/dL Normal 0.3-1.2 [facility] Comment on above: Performed By: #### C BCA, 3016-3, 2498-4, LIVR, 2731-8, 2132-9, 07368-3, HA1C #### [facility] ([id number]) [address], [address] [place] [address] Bilirubin.direct [Mass/Vol] 0.0 mg/dL Normal 0.0-0.4 [facility] Comment on above: Performed By: #### C BCA, 3016-3, 2498-4, LIVR, 2731-8, 2132-9, 50608-6, HA1C #### [facility] ([id number]) [address], [address] [place] [address] Protein [Mass/Vol] 6.6 g/dL Normal 6.0-8.0 [facility] Comment on above: Performed By: #### C BCA, 3016-3, 2498-4, LIVR, 1-8, 2131-9, 04309-0, HA1C #### [facility] ([id number]) [address], [address] [place] [address] Parathyrin.intact [Mass/Vol] on 12-02-2023 PTH INTACT 23 pg/mL Normal 12-88 [facility] Comment on above: Performed By: #### C BCA, 3016-3, 2498-4, LIVR, 1-8, 2131-9, 65625-5, HA1C #### [facility] ([id number]) [address], [address] [place] [address] TSH Qnon 12-02-2023 TSH 1.50 uIU/mL Normal 0.49-4.67 [facility] Comment on above: Performed By: #### C BCA, 3016-3, 2498-4, LIVR, 2731-8, 2132-9, 79544-4, HA1C #### [facility] ([id number]) [address], [address] [place] [address] VITAMIN B12on 12-02-2023 Cobalamin (Vitamin B12) [Mass/Vol] 541 pg/mL Normal 180-914 [facility] Comment on above: Performed By: #### C BCA, 3016-3, 2498-4, LIVR, 2731-8, 2-9, 84548-7, HA1C #### [facility] ([id number]) [address] [place] [address], [address] [place] [address] Vitamin D+Metabolites [Mass/ Vol]on 12-02-2023 VITAMIN D 25 HYD TOT 24.3 ng/mL Low 30-100 [facility] Comment on above: Result Comment: Vitamin D status 25 [place] Vitamin D Deficiency <20 ng/mL Insufficiency 20-29 ng/mL Sufficiency 30-100 ng/mL Toxicity >100 ng/mL NOTE: A pediatric reference range has not been established by the press smith helper of this kit. The [place] [employer] recommends a Vitamin D level of = or >20ng/mL in infants and children. Performed By: #### C BCA, 3016-3, 2498-4, LIVR, 2731-8, 2-9, 36468-3, HA1C #### [facility] ([id number]) [address] [place] [address], [address] [place] [address] CBC with Diffon 08-05-2023 Abs. Basophil <0.03 Normal 0.00-0.20 [facility] Comment on above: Performed By: #### T DANIEL, CDP #### [facility] [address] [address] Presser Machine: Mauricio Irby MD #### LIPR, FT3, INSU, T4, FE, GLYHGB #### [facility] [employer] [address] [place] [address] Presser Machine: Casa Medrano MD Abs.Imm.Granulocy te 0.05 k/uL Normal 0.00-0.30 [facility] Comment on above: Performed By: #### T DANIEL, CDP #### [address] [place], [place] 4410183 Presser Machine: Mauricio Irby MD #### LIPR, FT3, INSU, T4, FE, GLYHGB #### [address] [id number] Presser Machine: Casa Medrano MD Abs.Neutrophil (Seg) 7.71 k/uL Normal 1.50-8.10 [facility] Comment on above: Performed By: #### T SH, CDP #### [address] [place] [id number] Presser Machine: Mauricio Irby MD #### LIPR, FT3, INSU, T4, FE, GLYHGB #### [address] [id number] Presser Machine: Casa Medrano MD Basophils/100 WBC (Bld) 0 % Normal 0-2 [facility] Comment on above: Performed By: #### T SH, CDP #### [address] [place] [address] Presser Machine: Mauricio Irby MD #### LIPR, FT3, INSU, T4, FE, GLYHGB #### [address] [id number] Presser Machine: Casa Medrano MD Eosinophils (Bld) [#/Vol] 0.10 10*3/uL Normal 0.00-0.44 [facility] Comment on above: Performed By: #### T SH, CDP #### [address] [place] [address] Presser Machine: Mauricio Irby MD #### LIPR, FT3, INSU, T4, FE, GLYHGB #### [address] [id number] Presser Machine: Casa Medrano MD Eosinophils/100 WBC (Bld) 1 % Normal 1-4 [facility] Comment on above: Performed By: #### T SH, CDP #### [address] [place] [address] Presser Machine: Mauricio Irby MD #### LIPR, FT3, INSU, T4, FE, GLYHGB #### [address] [phone] Presser Machine: Casa Medrano MD Erythrocyte distribution width (RBC) [Ratio] 12.5 % Normal 11.8-14.4 [facility] Comment on above: Performed By: #### T SH, CDP #### [address] [place] [address] Presser Machine: Mauricio Irby MD #### LIPR, FT3, INSU, T4, FE, GLYHGB #### [place] [id number] Presser Machine: Casa Medrano MD Hematocrit (Bld) [Volume fraction] 45.1 % Normal 36.3-47.1 [facility] Comment on above: Performed By: #### T SH, CDP #### [address] [place] [phone] Presser Machine: Mauricio Irby MD #### LIPR, FT3, INSU, T4, FE, GLYHGB #### [address] [phone] Presser Machine: Casa Medrano MD Hemoglobin (Bld) [Mass/Vol] 15.2 g/dL High 11.9-15.1 [facility] Comment on above: Performed By: #### T SH, CDP #### [address] [place] [address] Presser Machine: Mauricio Irby MD #### LIPR, FT3, INSU, T4, FE, GLYHGB #### [address], [place] [phone] Presser Machine: Casa Medrano MD Immature granulocytes/100 WBC (Bld) 1 % High 0 [facility] Comment on above: Performed By: #### T SH, CDP #### [facility] [address] [place], [place] [id number] Presser Machine: Mauricio Irby MD #### LIPR, FT3, INSU, T4, FE, GLYHGB #### [id number] [place], [place] [id number] Presser Machine: Casa Medrano MD Lymphocytes (Bld) [#/Vol] 2.55 10*3/uL Normal 1.10-3.70 [facility] Comment on above: Performed By: #### T SH, CDP #### [facility] [address] [place] [id number] Presser Machine: Mauricio Irby MD #### LIPR, FT3, INSU, T4, FE, GLYHGB #### [address] [address] Presser Machine: Casa Medrano MD Lymphocytes/100 WBC (Bld) 23 % Low 24-43 [facility] Comment on above: Performed By: #### T SH, CDP #### [facility] [address] [place] [id number] Presser Machine: Mauricio Irby MD #### LIPR, FT3, INSU, T4, FE, GLYHGB #### [address] [address] Presser Machine: Casa Medrano MD MCH (RBC) [Entitic mass] 31.6 pg Normal 25.2-33.5 [facility] Comment on above: Performed By: #### T SH, CDP #### [facility] [address] [place] [phone] Presser Machine: Mauricio Irby MD #### LIPR, FT3, INSU, T4, FE, GLYHGB #### [place] [address] Presser Machine: Casa Medrano MD MCHC (RBC) [Mass/Vol] 33.7 g/dL Normal 28.4-34.8 [facility] Comment on above: Performed By: #### T SH, CDP #### [address] [place] [phone] ( Presser Machine: Mauricio Irby MD #### LIPR, FT3, INSU, T4, FE, GLYHGB #### [place] [address] Presser Machine: Casa Medrano MD MCV (RBC) [Entitic vol] 93.8 fL Normal 82.6-102.9 [facility] Comment on above: Performed By: #### T SH, CDP #### [address] [place] [phone] ( Presser Machine: Mauricio Irby MD #### LIPR, FT3, INSU, T4, FE, GLYHGB #### [place] [address] Presser Machine: Casa Medrano MD Monocytes (Bld) [#/Vol] 0.60 10*3/uL Normal 0.10-1.20 [facility] Comment on above: Performed By: #### T SH, CDP #### [address] [place] [phone] Presser Machine: Mauricio Irby MD #### LIPR, FT3, INSU, T4, FE, GLYHGB #### [place] [phone] Presser Machine: Casa Medrano MD Monocytes/100 WBC (Bld) 5 % Normal 3-12 [facility] Comment on above: Performed By: #### T SH, CDP #### [facility] [address] [place], [place] [phone] Presser Machine: Mauricio Irby MD #### LIPR, FT3, INSU, T4, FE, GLYHGB #### [place] [address] [place], [place] [phone] Presser Machine: Casa Medrano MD Neutrophil (Seg) 70 % High 36-65 [facility] Comment on above: Performed By: #### T SH, CDP #### [facility] [address] [place], [place] [phone] Presser Machine: Mauricio Irby MD #### LIPR, FT3, INSU, T4, FE, GLYHGB #### [address] [phone] Presser Machine: Casa Medrano MD NRBC Automated 0.0 per 100 WBC Normal 0.0 [facility] Comment on above: Performed By: #### T SH, CDP #### [address] [place], [place] [phone] Presser Machine: Mauricio Irby MD #### LIPR, FT3, INSU, T4, FE, GLYHGB #### [address] [phone] Presser Machine: Casa Medrano MD Platelet mean volume (Bld) [Entitic vol] 9.2 fL Normal 8.1-13.5 [facility] Comment on above: Performed By: #### T SH, CDP #### [address] [place] [address] Presser Machine: Mauricio Irby MD #### LIPR, FT3, INSU, T4, FE, GLYHGB #### [address] [phone] Presser Machine: Casa Medrano MD Platelets (Bld) [#/Vol] 297 10*3/uL Normal 138-453 [facility] Comment on above: Performed By: #### T SH, CDP #### [address] [place], [place] [phone] Presser Machine: Mauricio Irby MD #### LIPR, FT3, INSU, T4, FE, GLYHGB #### [place] [address] [place] [address] Presser Machine: Casa Medrano MD RBC (Bld) [#/Vol] 4.81 10*6/uL Normal 3.95-5.11 [facility] Comment on above: Performed By: #### T SH, CDP #### [address] [place] [phone] Presser Machine: Mauricio Irby MD #### LIPR, FT3, INSU, T4, FE, GLYHGB #### [address] [address] Presser Machine: Casa Medrano MD WBC (Bld) [#/Vol] 11.0 10*3/uL Normal 3.5-11.3 [facility] Comment on above: Performed By: #### T SH, CDP #### [address] [place] [phone] Presser Machine: Mauricio Irby MD #### LIPR, FT3, INSU, T4, FE, GLYHGB #### [address] [address] Presser Machine: Casa Medrano MD Hemoglobin A1Con 08-05-2023 Glucose [Mass/Vol] 100 mg/dL Normal [facility] Comment on above: Result Comment: The ADA and AACC recommend providing the estimated average glucose result to permit better patient understanding of their HBA1c result. Performed By: #### U HCG, UMICAO, UAX #### [address] [place] [phone] Presser Machine: Mauricio Irby MD HbA1c (Bld) [Mass fraction] 5.1 % Normal 4.0-6.0 [facility] Comment on above: Performed By: #### U HCG, TONO, UAX #### [facility] [address] [place] [address] Presser Machine: Mauricio Irby MD Insulinon 3 Insulin 19.2 mU/L Normal [facility] Comment on above: Performed By: #### T SH, CDP #### [address] [place] [address] Presser Machine: Mauricio Irby MD #### LIPR, FT3, INSU, T4, FE, GLYHGB #### [address] [address] Presser Machine: Casa Medrano MD Reference Range Normal [facility] Comment on above: Result Comment: Fast in.6-24.9 30 min: 20-112 60 min: 29-88 90 min: 26-84 120 min: 22-79 Performed By: #### T SH, CDP #### [address] [place], [place] [phone] Presser Machine: Mauricio Irby MD #### LIPR, FT3, INSU, T4, FE, GLYHGB #### [address] [address] Presser Machine: Casa Medrano MD Ironon 5 Iron [Mass/Vol] 68 ug/dL Normal 37-145 [facility] Comment on above: Performed By: #### T SH, CDP #### [facility] [address] [place] [address] Dr. [place], [place] [phone] Presser Machine: Mauricio Irby MD #### LIPR, FT3, INSU, T4, FE, GLYHGB #### [address] [phone] Presser Machine: Casa Medrano MD Lipid Profileon 08-05-2023 Cholesterol [Mass/Vol] 171 mg/dL Normal 0-199 [facility] Comment on above: Result Comment: Cholesterol Guidelines: <200 Desirable 200-240 Borderline >240 Undesirable Performed By: #### T SH, CDP #### [address] [place], [place] [phone] Presser Machine: Mauricio Irby MD #### LIPR, FT3, INSU, T4, FE, GLYHGB #### [employer] [address] [place], [place] [phone] Presser Machine: Casa Medrano MD Cholesterol in HDL [Mass/Vol] 52 mg/dL Normal >40 [facility] Comment on above: Result Comment: HDL Guidelines: <40 Undesirable 40-59 Borderline >59 Desirable Performed By: #### T SH, CDP #### [address] [place], [place] [phone] Presser Machine: Mauricio Irby MD #### LIPR, FT3, INSU, T4, FE, GLYHGB #### [facility] [employer] [address] [place], [place] [phone] Presser Machine: Casa Medrano MD Cholesterol in LDL [Mass/Vol] 100 mg/dL Normal 0-100 [facility] Comment on above: Result Comment: LDL Guidelines: <100 Desirable 100-129 Near to/above Desirable 130-159 Borderline >159 Undesirable Direct (measured) LDL and calculated LDL are not interchangeable tests. Performed By: #### T SH, CDP #### [address] [place] [address] Presser Machine: Mauricio Irby MD #### LIPR, FT3, INSU, T4, FE, GLYHGB #### [facility] [employer] [address] [place], [place] [phone] Presser Machine: Casa Medrano MD Cholesterol in VLDL [Mass/Vol] 19 mg/dL Normal [facility] Comment on above: Performed By: #### T SH, CDP #### [facility] [address] [place] [address] Presser Machine: Mauricio Irby MD #### LIPR, FT3, INSU, T4, FE, GLYHGB #### [place] [address] [place], [place] [phone] Presser Machine: Casa Medrano MD Cholesterol.total /Cholesterol in HDL [Mass ratio] 3.0 {ratio} Normal [facility] Comment on above: Performed By: #### T SH, CDP #### [facility] [address] [place] [address] Presser Machine: Mauricio Irby MD #### LIPR, FT3, INSU, T4, FE, GLYHGB #### [place] [address] [place], [place] [phone] Presser Machine: Casa Medrano MD Triglyceride [Mass/Vol] 93 mg/dL Normal <150 [facility] Comment on above: Result Comment: Triglyceride Guidelines: <150 Desirable 150-199 Borderline 200-499 High >499 Very high Based on AHA Guidelines for fasting triglyceride, November 2011. Performed By: #### T SH, CDP #### [facility] [address] [place] [address] [place] [address] Presser Machine: Mauricio Irby MD #### LIPR, FT3, INSU, T4, FE, GLYHGB #### [place] [address] [place], [place] [phone] Presser Machine: Casa Medrano MD T3, Freeon 08-05-2023 Free T3 [Mass/Vol] 2.90 pg/mL Normal 2.00-4.40 [facility] Comment on above: Performed By: #### U HCG, UMICAO, UAX #### [facility] [address] [place] [address] Presser Machine: Mauricio Irby MD Thyroid Stim. Horm.on 2023 Thyroid Stim. Horm. 1.33 uIU/mL Normal 0.30-5.00 [facility] Comment on above: Performed By: #### T SH, CDP #### [facility] [address] [place] [address] [place] [address] Presser Machine: Mauricio Irby MD #### LIPR, FT3, INSU, T4, FE, GLYHGB #### [facility] [address] [place], [place] [phone] Presser Machine: Casa Medrano MD Thyroxine T4on 08-05-2023 T4 [Mass/Vol] 9.9 ug/dL Normal 4.5-11.7 [facility] Comment on above: Performed By: #### T DANIEL, CDP #### [facility] [address] [place] [address] [place] [address] Presser Machine: Mauricio Irby MD #### LIPR, FT3, INSU, T4, FE, GLYHGB #### [facility] [place] [address] Presser Machine: Casa Medrano MD CBC with Auto Differentialon 10-27-2022 Basophils (Bld) [#/Vol] 0.03 10*3/uL [facility] Basophils/100 WBC (Bld) 0 % 0 - 2 % [facility] Eosinophils (Bld) [#/Vol] 0.07 10*3/uL [facility] Eosinophils/100 WBC (Bld) 1 % 1 - 4 % [facility] Erythrocyte distribution width (RBC) [Ratio] 12.6 % 11.8 - 14.4 % [facility] Hematocrit (Bld) [Volume fraction] 43.7 % 36.3 - 47.1 % [facility] Hemoglobin (Bld) [Mass/Vol] 14.3 g/dL 11.9 - 15.1 g/dL [facility] Immature granulocytes (Bld) [#/Vol] 0.04 10*3/uL [facility] Immature granulocytes/100 WBC (Bld) 0 % 0 [facility] Interpretation and review of laboratory results Abnormal [facility] Lymphocytes/100 WBC (Bld) 27 % 24 - 43 % [facility] Lymphocytes/100 WBC (Bld) 2.50 % [facility] MCH (RBC) [Entitic mass] 31.2 pg 25.2 - 33.5 pg [facility] MCHC (RBC) [Mass/Vol] 32.7 g/dL 28.4 - 34.8 g/dL [facility] MCV (RBC) [Entitic vol] 95.4 fL 82.6 - 102.9 fL [facility] Monocytes/100 WBC (Bld) 5 % 3 - 12 % [facility] Monocytes/100 WBC (Bld) 0.44 % [facility] Neutrophils/100 WBC (Bld) 67 % High 36 - 65 % [facility] Nucleated RBC/100 WBC (Bld) [Ratio] 0.0 % 0.0 per 100 WBC [facility] Platelet mean volume (Bld) [Entitic vol] 8.9 fL 8.1 - 13.5 fL [facility] Platelets (Bld) [#/Vol] 264 10*3/uL [facility] RBC (Bld) [#/Vol] 4.58 10*6/uL 3.95 - 5.1 1 m/uL [facility] Segmented neutrophils/100 WBC (Bld) 6.32 % [facility] WBC other (Bld) [#/Vol] 9.[address] [facility] CT ABDOMEN PELVIS W IV CONTR AST Additional Contrast? Noneon 10-27-2022 No acute abnormality identified. [facility] RIS CONSOLIDATED EXAMINATION: CT OF [...] findings do not require dedicated imaging follow-up. [facility] RIS Ronni Villareal MD - 10/27/2022 EXAMINATION: [...] imaging follow-up. IMPRESSION: No acute abnormality identified. [facility] Radiology Study observation (narrative) [facility] ABDOMEN PELVIS W IV CONTR AST Additional Contrast? NoneOrdered By: Ronni Vaughn on 10-27-2022 [facility] Work Phone: Comprehensive [facility]abolic Pane juana 10-27-2022 Albumin [Mass/Vol] 4.0 g/dL 3.5 - 5.2 g/dL [facility] Albumin/Globulin [Mass ratio] 1.1 {ratio} 1.0 - 2.5 [facility] ALP [Catalytic activity/Vol] 82 U/L 35 - 104 U/L [facility] ALT [Catalytic activity/Vol] 11 U/L 5 - 33 U/L [facility] Anion gap [Moles/Vol] 8 mmol/L Low 9 - 17 mmol/L [facility] AST [Catalytic activity/Vol] 12 U/L NINF - 32 U/L [facility] Bilirubin [Mass/Vol] 0.2 mg/dL Low 0.3 - 1.2 mg/dL [facility] Calcium [Mass/Vol] 9.2 mg/dL 8.6 - 10.4 mg/dL [facility] Chloride [Moles/Vol] 102 mmol/L 98 - 107 mmol/L [facility] CO2 [Moles/Vol] 27 mmol/L 20 - 31 mmol/L [facility] Creatinine [Mass/Vol] 0.7 mg/dL 0.5 - 0.9 mg/dL [facility] GFR/1.73 sq M.predicted MDRD (S/P/Bld) [Vol rate/Area] - PINF [facility] Comment on above: These results [...] 134 mg/dL High 70 - 99 mg/dL [facility] Potassium [Moles/Vol] 4.1 mmol/L 3.7 - 5.3 mmol/L [facility] Protein [Mass/Vol] 7.7 g/dL 6.4 - 8.3 g/dL [facility] Sodium [Moles/Vol] 137 mmol/L 135 - 144 mmol/L [facility] Urea nitrogen [Mass/Vol] 8 mg/dL 6 - 20 mg/dL [facility] Urea nitrogen/Creatini ne [Mass ratio] 11 mg/mg 9 - 20 [facility] Lactic Acidon 10-27-2022 Lactate (BldV) [Moles/Vol] 1.6 mmol/L 0.5 - 2.2 mmol/L [facility] Lipaseon 10-27-2022 Lipase [Catalytic activity/Vol] 67 U/L High 13 - 60 U/L [facility] No Panel Informationon 10-27 Interpretation and review of laboratory results Abnormal [facility] Urinalysis with Microscopico n 10-27-2022 Bacteria LM Ql (Urine sed) 1+ Abnormal None [facility] Bilirubin Ql (U) Negative NEGATIVE [facility] Clarity (U) Clear Clear [facility] Color (U) Yellow Yellow [facility] Epithelial cells LM.HPF (Urine sed) [#/Area] 10 TO 20 [facility] Glucose Test strip (U) [Mass/Vol] Negative NEGATIVE mg/dL [facility] Hemoglobin Auto test strip Ql (U) Negative NEGATIVE [facility] Interpretation and review of laboratory results Abnormal [facility] Ketones (U) [Mass/Vol] Negative NEGATIVE mg/dL [facility] Leukocyte esterase Test strip Ql (U) Negative NEGATIVE [facility] Nitrite Ql (U) Negative [facility]GATIVE [facility] pH (U) 6.0 [pH] 5.0 - 9.0 [facility] Protein (U) [Mass/Vol] Negative NEGATIVE mg/dL [facility] RBC LM.HPF (Urine sed) [#/Area] 0 TO 2 [facility] Specific gravity (U) [Rel density] 1.010 1.010 - 1.020 [facility] Urobilinogen Qn (U) Normal 0.0 - 1.0 EU/dL [facility] WBC LM.HPF (Urine sed) [#/Area] 0 TO [address] [facility] XR ABD FLAT UP_PA Joyce [...] MAURICIO LYONS Date: 2022-03-25 08:01 Normal [facility] AMYLASEon 03-24-2022 Amylase [Catalytic activity/Vol] 36 U/L Normal 25-115 [facility] Comment on above: Performed By: #### C MPDARION, LIPA #### [facility] [address] [place] [address] Dr. Melecio Chadwick CBC AUTO DIFFon 03-24-2022 BASO # 0.0 103/ul Normal 0.0-0.1 [place] Comment on above: Performed By: #### C BC #### [facility] [address] [place] [address] Dr. Melecio Chadwick Basophils/100 WBC (Bld) 0.2 % Normal 0.2-2.0 [place] Comment on above: Performed By: #### C BC #### [facility] [address] [place] [address] Dr. Melecio Chadwick EO # 0.1 103/ul Normal 0.0-0.7 [place] Comment on above: Performed By: #### C BC #### [facility] [address] [place] [address] Dr. Melecio Chadwick Eosinophils/100 WBC (Bld) 1.1 % Normal 0.9-7.0 [facility] Comment on above: Performed By: #### C BC #### [facility] [address] [place] [address] Dr. Melecio Chadwick Erythrocyte distribution width (RBC) [Ratio] 12.3 % Normal 11.0-15.0 [place] Comment on above: Performed By: #### C BC #### [facility] [address] [place] [address] Dr. Melecio Chadwick Hematocrit (Bld) [Volume fraction] 42.5 % Normal 36.0-48.0 [place] Comment on above: Performed By: #### C BC #### [facility] [address] [place] [address] Dr. Melecio Chadwick Hemoglobin (Bld) [Mass/Vol] 14.3 g/dL Normal 12.0-16.0 [place] Comment on above: Performed By: #### C BC #### [facility] [address] [place] [address] Dr. Melecio Chadwick IG # 0.03 10e3/ul Normal 0.00-0.03 [place] Comment on above: Performed By: #### C BC #### [facility] [address] [place] [address] Dr. Melecio Chadwick IG % 0.3 % Normal 0.0-0.5 [place] Comment on above: Performed By: #### C BC #### [facility] [address] [place] [address] Dr. Melecio Chadwick LYMPH # 3.1 103/ul Normal 1.2-3.8 [place] Comment on above: Performed By: #### C BC #### [facility] [address] [place] [address] Dr. Melecio Chadwick Lymphocytes/100 WBC (Bld) 29.8 % Normal 20.5-60.0 [place] Comment on above: Performed By: #### C BC #### [facility] [address] [place] [address] Dr. Melecio Chadwick MANUAL DIFF REQ NO Normal [facility] Comment on above: Performed By: #### C BC #### [facility] [address] [place] [address] Dr. Melecio Chadwick MCH (RBC) [Entitic mass] 31.0 pg Normal 26.7-34.0 [place] Comment on above: Performed By: #### C BC #### [facility] [address] [place] [address] Dr. Melecio Chadwick MCHC (RBC) [Mass/Vol] 33.6 g/dL Normal 29.9-35.2 [place] Comment on above: Performed By: #### C BC #### [facility] [address] [place] [address] Dr. Melecio Chadwick MCV (RBC) [Entitic vol] 92.2 fL Normal 81.0-99.0 [place] Comment on above: Performed By: #### C BC #### [facility] [address] [place] [address] Dr. Melecio Chadwick MONO # 0.6 103/ul Normal 0.3-0.8 [place] Comment on above: Performed By: #### C BC #### [facility] [address] [place] [address] Dr. Melecio Chadwick Monocytes/100 WBC (Bld) 5.8 % Normal 1.7-12.0 [place] Comment on above: Performed By: #### C BC #### [facility] [address] [place] [address] Dr. Melecio Chadwick NEUT # 6.5 103/ul Normal 1.4-6.5 [place] Comment on above: Performed By: #### C BC #### [facility] [address] [place] [address] Dr. Melecio Chadwick Neutrophils/100 WBC (Bld) 62.8 % Normal 43.0-75.0 [place] Comment on above: Performed By: #### C BC #### [facility] [address] [place] [address] Dr. Melecio Chadwick Platelet mean volume (Bld) [Entitic vol] 9.0 fL Critically low 9.5-13.5 [place] Comment on above: Performed By: #### C BC #### [facility] [address] [place] [address] Dr. Melecoi Chadwick PLT 268 103/ul Normal 150-450 [facility] Comment on above: Performed By: #### C BC #### [facility] [address] [place] [address] Dr. Melecio Chadwick RBC 4.61 106/ul Normal 4.20-5.40 [facility] Comment on above: Performed By: #### C BC #### [facility] [address] [place] [address] Dr. Melecio Chadwick WBC 10.4 103/ul Normal 4.0-11.0 [place] Comment on above: Performed By: #### C BC #### [facility] [address] [place] [address] Dr. Melecio Chadwick LIPASEon 03-24-2022 Lipase [Catalytic activity/Vol] 114.0 U/L Normal 73.0-393.0 [place] Comment on above: Performed By: #### C MP DARION, LIPA #### [facility] [address] [place] [address] Dr. Melecio Chadwick PROF 14(COMP METB)on 023 Albumin [Mass/Vol] 3.5 g/dL Normal 3.4-5.0 [place] Comment on above: Performed By: #### C MP DARION, LIPA #### [facility] [address] [place] [address] Dr. Melecio Chadwick Albumin/Globulin [Mass ratio] 0.8 {ratio} Normal [place] Comment on above: Performed By: #### C MP DARION, LIPA #### [facility] [address] [place] [address] Dr. Melecio Chadwick ALP [Catalytic activity/Vol] 85 U/L Normal 46-116 [facility] Comment on above: Performed By: #### C MP DARION, LIPA #### [facility] [address] [place] [address] Dr. Melecio Chadwick ALT [Catalytic activity/Vol] 21 U/L Normal 14-59 [facility] Comment on above: Performed By: #### C MP DARION, LIPA #### [facility] [address] [place] [address] Dr. Melecio Chadwick Anion gap [Moles/Vol] 11.6 mmol/L Normal [place] Comment on above: Performed By: #### C MP DARION, LIPA #### [facility] [address] [place] [address] Dr. Melecio Chadwick AST [Catalytic activity/Vol] 15 U/L Normal 15-37 [facility] Comment on above: Performed By: #### C DARION LOGAN, LIPA #### [facility] [address] [place] [address] Dr. Melecio Chadwick Bilirubin [Mass/Vol] 0.3 mg/dL Normal 0.2-1.0 [facility] Comment on above: Performed By: #### C DOREEN DARION, LIPA #### [facility] [address] [place] [address] Dr. Melecio Chadwick Calcium [Mass/Vol] 8.8 mg/dL Normal 8.5-10.1 [facility] Comment on above: Performed By: #### C DARION LOGAN, LIPA #### [facility] [address] [place] [address] Dr. Melecio Chadwick Chloride [Moles/Vol] 102 mmol/L Normal 98-107 [facility] Comment on above: Performed By: #### C DOREEN DARION, LIPA #### [facility] [address] [place] [address] Dr. Melecio Chadwick CO2 [Moles/Vol] 28.5 mmol/L Normal 21.0-32.0 [facility] Comment on above: Performed By: #### C DOREEN DARION, LIPA #### [facility] [address] [place] [address] Dr. Melecio Chadwick Creatinine [Mass/Vol] 0.76 mg/dL Normal 0.55-1.02 [facility] Comment on above: Performed By: #### C DOREEN DARION, LIPA #### [facility] [address] [place] [address] Dr. Melecio Chadwick EGFR-AF BULGARIAN >60 Normal >=60 [facility] Comment on above: Performed By: #### C DOREEN DARION, LIPA #### [facility] [address] [place] [address] Dr. Melecio Chadwick EGFR-NON AF BULGARIAN >60 Normal >=60 [facility] Comment on above: Performed By: #### C MP, DARION, LIPA #### [facility] [address] [address] [address] Melecio Chadwick Globulin (S) [Mass/Vol] 4.2 g/dL Normal [place] Comment on above: Performed By: #### C MP, DARION, LIPA #### [facility] [address] [address] [address] Melecio Chadwick Glucose [Mass/Vol] 97 mg/dL Normal 74-106 [facility] Comment on above: Performed By: #### C MP, DARION, LIPA #### [facility] [address] [address] [address] Melecio Chadwick Potassium [Moles/Vol] 4.1 mmol/L Normal 3.5-5.1 [place] Comment on above: Performed By: #### C MP, DARION, LIPA #### [facility] [address] [address] [address] Melecio Chadwick Protein [Mass/Vol] 7.7 g/dL Normal 6.4-8.2 [facility] Comment on above: Performed By: #### C MP, DARION, LIPA #### [facility] [address] [address] [address] Melecio Chadwick Sodium [Moles/Vol] 138 mmol/L Normal 136-145 [place] Comment on above: Performed By: #### C MP, DARION, LIPA #### [facility] [address] [address] [address] Melecio Chadwick Urea nitrogen [Mass/Vol] 9.0 mg/dL Normal 7.0-18.0 [facility] Comment on above: Performed By: #### C MP, DARION, LIPA #### [facility] [facility] [address] [address] [address] Melecio Chadwick Urea nitrogen/Creatini ne [Mass ratio] 11.8 mg/mg Normal [place] Comment on above: Performed By: #### C MP, DARION, LIPA #### [facility] [address] [address] [address] Melecio Chadwick AMYLASEon 03-19-2022 Amylase [Catalytic activity/Vol] 44 U/L Normal 25-115 [place] Comment on above: Performed By: #### A MY, CMP, LIPA #### [facility] [address] [place] [address] Dr. Melecio Chadwick CBC AUTO DIFFon 03-19-2022 BASO # 0.0 103/ul Normal 0.0-0.1 [place] Comment on above: Performed By: #### C BC #### [facility] [address] [place] [address] Dr. Melecio Chadwick Basophils/100 WBC (Bld) 0.2 % Normal 0.2-2.0 [place] Comment on above: Performed By: #### C BC #### [facility] [address] [place] [address] Dr. Melecio Chadwick EO # 0.1 103/ul Normal 0.0-0.7 [place] Comment on above: Performed By: #### C BC #### [facility] [address] [place] [address] Dr. Melecio Chdawick Eosinophils/100 WBC (Bld) 1.5 % Normal 0.9-7.0 [place] Comment on above: Performed By: #### C BC #### [facility] [address] [place] [address] Dr. Melecio Chadwick Erythrocyte distribution width (RBC) [Ratio] 12.4 % Normal 11.0-15.0 [place] Comment on above: Performed By: #### C BC #### [facility] [address] [place] [address] Dr. Melecio Chadwick Hematocrit (Bld) [Volume fraction] 41.8 % Normal 36.0-48.0 [place] Comment on above: Performed By: #### C BC #### [facility] [address] [place] [address] Dr. Melecio Chadwick Hemoglobin (Bld) [Mass/Vol] 13.2 g/dL Normal 12.0-16.0 [place] Comment on above: Performed By: #### C BC #### [facility] [address] [place] [address] Dr. Melecio Chadwick IG # 0.02 10e3/ul Normal 0.00-0.03 [place] Comment on above: Performed By: #### C BC #### [facility] [address] [place] [address] Dr. Melecio Chadwick IG % 0.2 % Normal 0.0-0.5 [place] Comment on above: Performed By: #### C BC #### [facility] [address] [place] [address] Dr. Melecio Chadwick LYMPH # 3.3 103/ul Normal 1.2-3.8 [place] Comment on above: Performed By: #### C BC #### [facility] [address] [place] [address] Dr. Melecio Chadwick Lymphocytes/100 WBC (Bld) 38.0 % Normal 20.5-60.0 [place] Comment on above: Performed By: #### C BC #### [facility] [address] [place] [address] Dr. Melecio Chadwick MANUAL DIFF REQ NO Normal [facility] Comment on above: Performed By: #### C BC #### [facility] [address] [place] [address] Dr. Melecio Chadwick MCH (RBC) [Entitic mass] 30.9 pg Normal 26.7-34.0 [place] Comment on above: Performed By: #### C BC #### [facility] [address] [place] [address] Dr. Melecio Chadwick MCHC (RBC) [Mass/Vol] 31.6 g/dL Normal 29.9-35.2 [place] Comment on above: Performed By: #### C BC #### [facility] [address] [place] [address] Dr. Melecio Chadwick MCV (RBC) [Entitic vol] 97.9 fL Normal 81.0-99.0 [place] Comment on above: Performed By: #### C BC #### [facility] [address] [place] [address] Dr. Melecio Chadwick MONO # 0.4 103/ul Normal 0.3-0.8 [place] Comment on above: Performed By: #### C BC #### [facility] [address] [place] [address] Dr. Melecio Chadwick Monocytes/100 WBC (Bld) 4.6 % Normal 1.7-12.0 [place] Comment on above: Performed By: #### C BC #### [facility] [address] [place] [address] Dr. Melecio Chadwick NEUT # 4.8 103/ul Normal 1.4-6.5 [place] Comment on above: Performed By: #### C BC #### [facility] [address] [place] [address] Dr. Melecio Chadwick Neutrophils/100 WBC (Bld) 55.5 % Normal 43.0-75.0 [place] Comment on above: Performed By: #### C BC #### [facility] [address] [place] [address] Dr. Melecio Chadwick Platelet mean volume (Bld) [Entitic vol] 9.7 fL Normal 9.5-13.5 [place] Comment on above: Performed By: #### C BC #### [facility] [address] [place] [address] Dr. Melecio Chadwick PLT 258 103/ul Normal 150-450 [facility] Comment on above: Performed By: #### C BC #### [facility] [address] [place] [address] Dr. Melecio Chadwick RBC 4.27 106/ul Normal 4.20-5.40 [facility] Comment on above: Performed By: #### C BC #### [facility] [address] [place] [address] Dr. Melecio Chadwick WBC 8.7 103/ul Normal 4.0-11.0 [facility] Comment on above: Performed By: #### C BC #### [facility] [address] [place] [address] Dr. Melecio Chadwick LIPASEon 03-19-2022 Lipase [Catalytic activity/Vol] 119.0 U/L Normal 73.0-393.0 [place] Comment on above: Performed By: #### A MY, CMP, LIPA #### [facility] [address] [address] [address] Melecio Chadwick PROF 14(COMP METB)on 023 Albumin [Mass/Vol] 3.2 g/dL Critically low 3.4-5.0 [place] Comment on above: Performed By: #### A MY, CMP, LIPA #### [facility] [address] [address] [address] Melecio Chadwick Albumin/Globulin [Mass ratio] 0.9 {ratio} Normal [place] Comment on above: Performed By: #### A MY, CMP, LIPA #### [facility] [address] [address] [address] Melecio Chadwick ALP [Catalytic activity/Vol] 76 U/L Normal 46-116 [place] Comment on above: Performed By: #### A MY, CMP, LIPA #### [facility] [address] [address] [address] Melecio Chadwick ALT [Catalytic activity/Vol] 18 U/L Normal 14-59 [facility] Comment on above: Performed By: #### A MY, CMP, LIPA #### [facility] [address] [place] [address] Dr. Melecio Chadwick Anion gap [Moles/Vol] 11.6 mmol/L Normal [place] Comment on above: Performed By: #### A MY, CMP, LIPA #### [facility] [address] [address] [address] Melecio Chadwick AST [Catalytic activity/Vol] 14 U/L Critically low 15-37 [facility] Comment on above: Performed By: #### A MY, CMP, LIPA #### [facility] [address] [place] [address] Dr. Melecio Chadwick Bilirubin [Mass/Vol] 0.2 mg/dL Normal 0.2-1.0 [place] Comment on above: Performed By: #### A MY, CMP, LIPA #### [facility] [address] [address] [address] Melecio Chadwick Calcium [Mass/Vol] 7.9 mg/dL Critically low 8.5-10.1 [facility] Comment on above: Performed By: #### A MY, CMP, LIPA #### [facility] [address] [place] [address] Dr. Melecio Chadwick Chloride [Moles/Vol] 105 mmol/L Normal 98-107 [facility] Comment on above: Performed By: #### A MY, CMP, LIPA #### [facility] [address] [place] [address] Dr. Melecio Chadwick CO2 [Moles/Vol] 25.8 mmol/L Normal 21.0-32.0 [facility] Comment on above: Performed By: #### A MY, CMP, LIPA #### [facility] [address] [place] [address] Dr. Melecio Chadwick Creatinine [Mass/Vol] 0.67 mg/dL Normal 0.55-1.02 [facility] Comment on above: Performed By: #### A MY, CMP, LIPA #### [facility] [address] [place] [address] Dr. Melecio Chadwick EGFR-AF BULGARIAN >60 Normal >=60 [facility] Comment on above: Performed By: #### A MY, CMP, LIPA #### [facility] [address] [place] [address] Dr. Melecio Chadwick EGFR-NON AF BULGARIAN >60 Normal >=60 [facility] Comment on above: Performed By: #### A MY, CMP, LIPA #### [facility] [address] [place] [address] Dr. Melecio Chadwick Globulin (S) [Mass/Vol] 3.6 g/dL Normal [facility] Comment on above: Performed By: #### A MY, CMP, LIPA #### [facility] [address] [place] [address] Dr. Melecio Chadwick Glucose [Mass/Vol] 95 mg/dL Normal 74-106 [facility] Comment on above: Performed By: #### A MY, CMP, LIPA #### [facility] [address] [address] [address] Melecio Chadwick Potassium [Moles/Vol] 3.4 mmol/L Critically low 3.5-5.1 [place] Comment on above: Performed By: #### A MY, CMP, LIPA #### [facility] [address] [address] [address] Melecio Chadwick Protein [Mass/Vol] 6.8 g/dL Normal 6.4-8.2 [place] Comment on above: Performed By: #### A MY, CMP, LIPA #### [facility] [address] [address] [address] Melecio Chadwick Sodium [Moles/Vol] 139 mmol/L Normal 136-145 [place] Comment on above: Performed By: #### A MY, CMP, LIPA #### [facility] [address] [place] [address] Dr. Melecio Chadwick Urea nitrogen [Mass/Vol] 6.0 mg/dL Critically low 7.0-18.0 [place] Comment on above: Performed By: #### A MY, CMP, LIPA #### [facility] [address] [address] [address] Melecio Chadwick Urea nitrogen/Creatini ne [Mass ratio] 9.0 mg/mg Normal [place] Comment on above: Performed By: #### A MY, CMP, LIPA #### [facility] [address] [place] [address] Dr. Melecio Chadwick Intraoperative Noteon 2017 Intraoperative Note [id number][facility] 2017 Intraoperative Note [id number]#1.00[facility] History and Physicalon 01-23 History and Physical [id number]#1.00[facility] Provider Orderson 01-23-2017 Protein [id number]#[facility].00[facility] Summary[facility] 12-08-2016 Coding Summary CODING DATE: 017 [facility] STATUS: Home PAYOR: Commercial Insurance APC DESCRIPTION 5113 Level 3 Musculoskeletal Procedures ADMIT DX: REASON FOR VISIT DX: S83.242A Other tear of medial meniscus, current injury, left knee, initial encounter FINAL DX: PRINCIPAL: M22.42 Chondromalacia patellae, left knee SECONDARY: M94.9 Disorder of cartilage, unspecified PYMT PROC APC STAT DESCRIPTION DOCTOR NAME DATE 41667 5113 J1 Arthroscopy, knee, ARIES HARO 12/05/2016 [...] Tamanna Ambrocio Date Saved: 12/08/2016 03:51 pm [facility] Consent Formson 12-08-2016 Consent Forms [id number]#1.00[facility] Dis[facility] Instructionson Discharge Instructions [id number] Intraoperative Noteon 2016 Intraoperative Note [id number]#1.00[facility] PACU Recordon 7 MAGR PACU Record [facility] PACU Record [facility] Primary Physician: ARIES HARO Finalized Date/Time: 12/08/16 10:49:55 Pt. Name: TAMY WALLS/Sex: 1980 FEMALE Med Rec #: [id number] Physician: ARIES HAOR Financial #: [id number] Pt. Type: D Room/Bed: / Admit/Disch: 12/05/16 [...] Signed By: Sana Jarvis RN 12/08/16 10:49 [facility] Preoperative Record MAGR Pre-Op Record Summary Primary Physician: ARIES HARO Finalized Date/Time: 12/08/16 10:20:04 Pt. Name: KAVITATAMY/Sex: 1980 FEMALE Med Rec #: [id number] Physician: ARIES HARO Financial #: [id number] Pt. Type: D Room/Bed: / Admit/Disch: 12/05/16 [...] Signed By: Marium Ledbetter RN 12/08/16 10:20 [facility] Medication Managementon 11-11 Medication Management [id number]#1.00OT[facility] Telemetry Stripson 7 Telemetry Strips [id number]#1.00OT[facility]IFF [facility] Anesthesia Noteon 12-05-2016 Anesthesia Note Patient: RUFUS WALLS : 36 years Sex: FEMALE : [birth year]Associated Diagnoses: NoneAuthor: Bunny Briggs MDPostoperative InformationPost Operative Note: Operative Day.Anesthetic utilized: General.Health StatusAllergies:Allergic Reactions (All)Severity Not DocumentedDilaudid- Angio-oedema.Percocet 5/325- Nausea & vomiting.Problem list (past medical history):All ProblemsAnxiety / SNOMED CT 48051003 / ConfirmedPhysical ExaminationVS/MeasurementsV ital Signs (last 24 [...] on: 12/05/2016 12:07 EDT] Bunny Briggs MD [facility] Anesthesia Note Patient: RUFUS WALLS : [...] (past medical history):All ProblemsAnxiety / SNOMED CT 38713907 / ConfirmedHistoriesFamily History:No family history items have been selected or recorded.Procedure history:Hysterectomy (463631732) in 2014 at 33 Years.Comments:11/28/2016 10:07 - Shayy Sylvester RNpartialAppendectomy (562376026) in 2013 at 32 Years.Tubal ligation (990688582) in 2004 at 24 Years.Cholecystectomy (70205901) in 1999 at 19 Years.Ear care (735084982).Comments:2016 10:06 - Shayy Sylvester RNtubes m3Kvlvol History Alcohol Assessment Use: Never. Tobacco Assessment former smoker quit 2 yrs ago Tobacco Use:. Substance Abuse Assessment Substance use: Never..Social & Psychosocial ErrnqfVnppmfe79/20/2017 Alcohol Use: NeverSubstance Abuse11/28/2016 Substance use: ShjgbJnyvlzg58/20/2017 Smoking tobacco use: former smoker quit 2 [...] on: 12/05/2016 10:25 EDT] Bunny Briggs MD [facility] MAGR Intraoperative Recordon 12-05-2016 MAGR Intraoperative Record MAGR Intra-Op Record Summary Primary Physician: ARIES HARO Finalized Date/Time: 12/05/16 11:52:54 Pt. Name: TAMY WALLS/Sex: 1980 FEMALE Med Rec #: [id number] Physician: ARIES HARO Financial #: [id number] Pt. Type: D Room/Bed: / Admit/Disch: 12/05/16 [...] Role Performed Surgeon - Primary Anesthesiologist of [employer] Repairer Record Time In 12/05/16 10:37:00 12/05/16 10:37:00 12/05/16 10:37:00 Time Out 12/05/16 11:30:00 12/05/16 11:48:00 12/05/16 11:48:00 Procedure Arthroscopy Knee(Left) Arthroscopy Knee(Left) Arthroscopy Knee(Left) Last Modified By: Leslie Tolentino RN, Stephanie RN Sauer, Stephanie RN 12/05/16 11:52:02 12/05/16 11:52:02 12/05/16 11:52:02 Entry 4 Entry 5 Entry 6 Case Attendee Ro Morrison RN, Leigh-Ann CST Nikolaus, Linda M Role Performed [employer] Repairer Special Services Director Scrub Personnel Time In 12/05/16 10:37:00 12/05/16 [...] Arthroscopy Knee Primary Procedure Yes Primary Surgeon STEPANIC, ARIES Modifiers Left Surgeon Comment LEFT KNEE ARTHROSCOPY [...] By: Leslie Tolentino RN 12/05/16 11:52 Normal [facility] MAGR Postoperative Recordon 12-05-2016 MAGR Postoperative Record MAGR Phase II Record Summary Primary Physician: ARIES HARO Finalized Date/Time: 12/05/16 14:50:11 Pt. Name: TAMY WALLS D.O.B./Sex: 1980 FEMALE Med Rec #: [id number] Physician: ARIES HARO Financial #: [id number] Pt. Type: D Room/Bed: / Admit/Disch: 12/05/16 [...] Signed By: Sana Jarvis RN 12/05/16 14:50 [facility] Progress Note - Nurseon 10-2 Progress Note - Nurse Spoke with pt and informed her to be here at 9am and NPO after MN, she verbalizes understanding.[Electronical ly Signed on: 12/04/2016 09:42 EDT] Halblaub, Sidsel RN[Verified on: 12/04/2016 09:42 EDT] Shayy Sylvester RN [facility] Vital Signs Date Time Vital Sign Value Performing Clinician Eliseo perales 07-17-2024 09:29-0400 Diastolic blood pressure 58 mm[Hg] Darron Swade DO Work Phone: [facility] 07-17-2024 09:29-0400 SaO2% (BldA) [Mass fraction] 96 % Darron Swade DO Work Phone: [facility] 07-17-2024 09:29-0400 Systolic blood pressure 136 mm[Hg] Darron Swade DO Work Phone: [facility] 07-17-2024 08:16-0400 Body height 170.2 cm Darron Swade DO Work Phone: [facility] 07-17-2024 08:16-0400 Body mass index (BMI) [Ratio] 37.59 kg/m2 Darron Swade DO Work Phone: [facility] 07-17-2024 08:16-0400 Body weight 108.86 kg Darron Swade DO Work Phone: [facility] 07-17-2024 07:29-0400 Body temperature 97.3 [degF] Darron Swade DO Work Phone: [facility] 07-17-2024 07:29-0400 Heart rate 67 /min Darron Swade DO Work Phone: [facility] 07-17-2024 07:29-0400 Respiratory rate 20 /min Darron Swade DO Work Phone: [facility] 06-24-2024 11:00-0400 Body mass index (BMI) [Ratio] 39.47 kg/m2 Suresh Slaazar LD Work Phone: [facility] 06-24-2024 11:00-0400 Body weight 114.31 kg Suresh Salazar LD Work Phone: [facility] 05-26-2024 09:00-0400 Body mass index (BMI) [Ratio] 39.47 kg/m2 Suresh Salazar LD Work Phone: [facility] 05-26-2024 09:00-0400 Body weight 114.31 kg Suresh Salazar LD Work Phone: [facility] 04-25-2024 09:00-0400 Body mass index (BMI) [Ratio] 38.54 kg/m2 Suresh Salazar LD Work Phone: [facility] 04-25-2024 09:00-0400 Body weight 114.31 kg Suresh Salazar LD Work Phone: [facility] 03-28-2024 15:00-0500 Body mass index (BMI) [Ratio] 38.24 kg/m2 Suresh Salazar LD Work Phone: [facility] 03-28-2024 15:00-0500 Body weight 113.4 kg Suresh Salazar LD Work Phone: [facility] 02-26-2024 11:00-0500 Body mass index (BMI) [Ratio] 39 kg/m2 Suresh Salazar LD Work Phone: [facility] 02-26-2024 11:00-0500 Body weight 115.67 kg Suresh Salazar LD Work Phone: [facility] 01-11-2024 11:00-0500 Body mass index (BMI) [Ratio] 39 kg/m2 Suresh Salazar LD Work Phone: [facility] 01-11-2024 11:00-0500 Body weight 115.67 kg Suresh PATEL Work Phone: [facility] 12-11-2023 08:51-0400 Body height 172.2 cm Suresh PATEL Work Phone: [facility] 12-11-2023 08:51-0400 Body mass index (BMI) [Ratio] 38.54 kg/m2 Suresh PATEL Work Phone: [facility] 12-11-2023 08:51-0400 Body weight 114.31 kg Suresh PATEL Work Phone: [facility] 11-27-2023 08:42-0400 Body height 172.2 cm Jaylne Brown MD Work Phone: [facility] 11-27-2023 08:42-0400 Body mass index (BMI) [Ratio] 39.19 kg/m2 Jaylen Brown MD Work Phone: [facility] 11-27-2023 08:42-0400 Body weight 116.21 kg Jaylen Brown MD Work Phone: [facility] 11-27-2023 08:42-0400 Diastolic blood pressure 91 mm[Hg] Jaylen Brown MD Work Phone: [facility] 11-27-2023 08:42-0400 Heart rate 84 /min Jaylen Brown MD Work Phone: [facility] 11-27-2023 08:42-0400 Systolic blood pressure 142 mm[Hg] Jaylen Brown MD Work Phone: [facility] 10-27-2022 20:03-0400 Diastolic blood pressure 76 mm[Hg] Allison [facility]ahan MD [facility] [employer] 10-27-2022 20:03-0400 SaO2% (BldA) [Mass fraction] 98 % Allison Callahan MD [facility] 10-27-2022 20:03-0400 Systolic blood pressure 126 mm[Hg] Allison Callahan MD [facility] 10-27-2022 15:17-0400 Body weight 104.33 kg Allison Callahan MD [facility] 10-27-2022 15:15-0400 Body temperature 97.9 [degF] Allison Callahan MD [facility] 10-27-2022 15:15-0400 Heart rate 100 /min Allison Callahan MD Work Phone: [facility] 10-27-2022 15:15-0400 Respiratory rate 18 /min Allison Callahan MD Work Phone: [facility] Encounters Encounter Date Encounter Type Care Provider Facility Start: 07-17-2024 End: 07-17-2024 Emergency department patient visit Darron Elke Cain DO Work Phone: [facility] Emergency Department Comment on above: Hydroureteronephrosi s (Primary Dx); Right flank pain Start: 06-24-2024 End: 06-24-2024 Telemedicine consultation with patient Suresh PATEL Work Phone: [facility] Comment on above: Morbid obesity (CMS- HCC) (Primary Dx); Pre-bariatric surgery nutrition evaluation Start: 06-24-2024 End: 06-24-2024 ambulatory [facility] Start: 05-31-2024 End: 05-31-2024 ambulatory Quoc Alejo TEMPLE Facility:[facility] Start: 05-26-2024 End: 05-26-2024 Telemedicine consultation with patient Suresh PATEL Work Phone: [facility] Comment on above: Morbid obesity ([facility]- HCC) (Primary Dx); Pre-bariatric surgery nutrition evaluation Start: 05-26-2024 End: 05-26-2024 ambulatory [facility] Start: 05-24-2024 End: 05-24-2024 ambulatory [facility] Start: 05-18-2024 ambulatory [facility] Start: 05-05-2024 ambulatory Quoc TEMPLE Facility:[facility] [place] Start: 04-25-2024 End: 04-25-2024 Telemedicine consultation with patient Suresh PATEL Work Phone: [facility] Comment on above: Morbid obesity (CMS- HCC) (Primary Dx); Pre-bariatric surgery nutrition evaluation Start: 04-25-2024 End: 04-25-[address] [facility] Start: 03-28-2024 End: 03-28-2024 Telemedicine consultation with patient Suresh PATEL Work Phone: [facility] Comment on above: Morbid obesity (CMS- HCC) (Primary Dx); Pre-bariatric surgery nutrition evaluation Start: 03-28-2024 End: 03-28-[address] [facility] Start: 02-26-2024 End: 02-26-2024 Telemedicine consultation with patient Suresh PATEL Work Phone: [facility] Comment on above: Morbid obesity (CMS- HCC) (Primary Dx); Pre-bariatric surgery nutrition evaluation Start: 02-26-2024 End: 02-26-[address] [facility] Start: 02-25-2024 ambulatory JAYLEN Elke BROWN [facility] Start: 01-11-2024 End: 01-11-2024 Telemedicine consultation with patient Suresh PATEL Work Phone: [facility] Comment on above: Morbid obesity (CMS- HCC) (Primary Dx); Pre-bariatric surgery nutrition evaluation Start: 01-11-2024 End: 01-11-[address] [facility] Start: 12-11-2023 End: 12-11-2023 Telemedicine consultation with patient Suresh PATEL Work Phone: [facility] Comment on above: Morbid obesity (CMS- HCC) (Primary Dx); Pre-bariatric surgery nutrition evaluation; Obesity, Class II, BMI 35-39.9 Start: 12-11-2023 End: 12-11-2023 ambulatory [facility] Start: 12-02-2023 End: 12-02-2023 ambulatory [facility] Start: 11-27-2023 End: 11-27-2023 Office outpatient new 45 minutes Jaylen Brown MD Work Phone: [facility] Comment on above: Obesity, Class II, B TN 35-39.9 (Primary Dx); Gastroesophageal reflux disease, unspecified whether esophagitis present Start: 11-27-2023 End: 11-27-2023 ambulatory [facility] Start: 10-27-2022 End: 10-27-2022 Emergency department patient visit Allison Callahan MD Work Phone: [facility] ED Comment on above: Left flank pain (Berenice denilson Dx) Start: 04-21-2022 End: 04-22-[address] FRANCIA ROWELL . Facility:[facility] Start: 03-24-2022 End: 03-25-[address] FRANCIA ROWELL . Facility:[facility] Start: 03-19-2022 End: 03-19-[address] FRANCIA ROWELL . Facility: Start: 12-05-2016 End: 12-05-2016 Patient encounter [facility] Facility:[facility] Start: 11-29-2016 End: 11-29-2016 [facility] Facility:[facility] Procedures Date Procedure Procedure Detail Performing Clinician Start: 07-17-2024 Ct abdomen & pelvis w/contrast material Darron Castañedaade DO Work Phone: Start: 07-17-2024 Basic metabolic pane l calcium total Darron Castañedaade DO Work Phone: Start: 07-17-2024 Hepatic function panel Darron Castañedaade DO Work Phone: Start: 07-17-2024 Urinalysis microscopic only Darron Cain DO Work Phone: Start: 07-17-2024 Urine test visual color cmprsn meths Darron Cain DO Work Phone: Start: 10-27-2022 Ct abdomen & pelvis w/contrast material Tyler Galarza PA-C Work Phone: Start: 10-27-2022 Urnls dip stick/tabl et reagent auto microscopy Allison Callahan MD Work Phone: Start: 10-27-2022 Comprehensive metabo lic panel Allsion Callahan MD Work Phone: Start: 04-15-2022 Adult depression scr eening assessment Jaylen Brown MD Work Phone: Plan of Treatment Date Care Activity Detail Author Start: 08-04-2028 Lipid panel Lipids [facility] Start: 06-24-2025 Adult BMI Screening [facility] Start: 05-26-2025 Adult BMI Screening [facility] Start: 04-25-2025 Adult BMI Screening [facility] Start: 03-28-2025 Adult BMI Screening Adult BMI Screen ing [facility] Start: 02-25-2025 Adult BMI Screening Adult [facility] Screen [facility] Start: 01-10-2025 Adult BMI Screening Adult BMI Screen ing [facility] Start: 12-10-2024 Adult BMI Follow Up Plan Adult BMI Follow Up Plan [facility] Start: 12-10-2024 Adult BMI Screening [facility] Start: 11-26-2024 Adult BMI Screening Adult [facility] Start: 10-10-2024 Influenza vaccination Influenza Vacc ine [facility] Start: 09-09-2024 Influenza vaccination Flu vacc ine (Season Ended) [facility] Start: 07-27-2024 End: 07-27-2024 Telemedicine consultation with patient 07/27/2024 10:00 AM EDT Telemedicine [facility] [address] [phone] Suresh Salazar, AMANDA [address] [place] [address] [facility] Start: 06-24-2024 End: 06-24-2024 Telemedicine consultation with patient 06/24/2024 11:30 AM EDT Telemedicine [facility] [address] [place] [phone] Suresh Salazar, AMANDA [address] [place] [address] [facility] Start: 05-26-2024 End: 05-26-2024 Telemedicine consultation with patient 05/26/2024 10:00 AM EDT Telemedicine [facility] [address] [place] [address], [place] [phone] Suresh Salazar, AMANDA [address] [place] [address], [place] [address] [facility] Start: 05-08-2024 DTaP,Tdap and Td Vac cines (2 - Td or Tdap) DTaP,Tdap and Td Vaccines (2 - Td or Tdap) [facility] Start: 05-08-2024 DTaP/Tdap/Td vaccine (2 - Td or Tdap) DTaP/Tdap/Td vaccine (2 - Td or Tdap) [facility] Start: 04-25-2024 End: 04-25-2024 Telemedicine consultation with patient 04/25/2024 9:30 AM EDT Telemedicine [facility] [address] [place] [phone] Suresh Salazar, LD [address] [place] [address] [facility] Start: 03-28-2024 End: 03-28-2024 Telemedicine consultation with patient 03/28/2024 3:30 PM EST Telemedicine [facility] [address] [place] [phone] Suresh Salazar LD [address] [place] [address] [facility] Start: 03-08-2024 End: 03-08-2024 Patient encounter procedure 03/08/2024 9:00 AM EST Appointment [facility] [address] [facility] [place] [address] Obesity, Class II, BMI 35-39.9 [facility] Comment on above: Obesity, Class II, B TN 35-39.9 Start: 02-11-2024 End: 02-11-2024 Telemedicine consultation with patient 02/11/2024 10:30 AM EST Telemedicine [facility] [address] [place] [phone] Suresh Salazar LD [address] [place] [address] [facility] Start: 01-11-2024 End: 01-11-2024 Telemedicine consultation with patient 01/11/2024 12:00 PM EST Telemedicine [facility] [address] [place] [phone] Suresh Salazar LD [address] [place] [address] [facility] Start: 12-11-2023 End: 12-11-2023 Telemedicine consultation with patient 12/11/2023 9:00 AM EDT Telemedicine [facility] [address] [place] [phone] Suresh Salazar LD [address] [place] [address] [facility] Start: 11-27-2023 End: 11-26-2024 RF Gastrointestinal tract upper Views W air contrast PO and W barium contrast PO Fluoroscopy upper GI with esophagus Imaging Routine Obesity, Class II, BMI 35-39.9 Expected: 11/27/2023, Expires: 11/26/2024 [facility] Comment on above: Expected: 11/27/2023 , Expires: 11/26/2024 Start: 10-11-2023 COVID-19 Vaccine ( season) COVID-19 Vaccine ( season) [facility] Start: 10-11-2023 COVID-19 Vaccine ( season) COVID-19 Vaccine ( season) [facility] Start: 10-11-2023 COVID-19 Vaccine () COVID-19 Vaccine () [facility] Start: 10-11-2023 Influenza vaccination Influenza Vacc ine [facility] Start: 10-06-2023 Tobacco Screening Tobacco Screening [facility] Start: 04-16-2023 Depression Screening Depression Scre ening [facility] Start: 09-09-2022 Influenza vaccination Flu vaccine (# 1) [facility] Start: 2021 Lipid panel Lipids [facility] Start: 2021 Screening for malign ant neoplasm of breast Breast cancer screen [facility] Start: 05-01-2011 Screening for malign ant neoplasm of cervix [facility] Start: 2002 Screening for malign ant neoplasm of cervix Pap smear [facility] Start: 2000 DTaP/Tdap/Td vaccine (1 - Tdap) DTaP/Tdap/Td vaccine (1 - Tdap) [facility] Start: 2000 Hepatitis B vaccine (1 of 3 - 19+ 3-dose series) Hepatitis B vaccine (1 of 3 - 19+ 3-dose series) [facility] Start: 05-01-1999 Adult BMI Follow Up Plan Adult [facility] Plan [facility] Start: 05-01-1999 Hepatitis C screening Hepatitis C sc reen [facility] Start: 1996 HIV screening HIV screen [facility] Start: 1994 Varicella vaccine (1 of 2 - 13+ 2-dose series) Varicella vaccine (1 of 2 - 13+ 2-dose series) [facility] Start: 1993 Depression Screen Depression Screen [facility] Start: 1982 Varicella vaccine (1 of 2 - 2-dose childhood series) Varicella vaccine (1 of 2 - 2-dose childhood series) [facility] Start: 1981 COVID-19 Vaccine (#1) COVID-19 Vacci ne (#1) [facility] Start: 1981 Hepatitis B vaccine (1 of 3 - 3-dose series) Hepatitis B vaccine (1 of 3 - 3-dose series) [facility] Start: 1981 Tobacco Counseling Tobacco Counselin g [facility] End: 11-26-2024 CBC W Auto Differential panel - Blood CBC auto differential Lab Routine Obesity, Class II, BMI 35-39.9 1 Occurrences starting 11/27/2023 until 11/26/2024 [facility] Work Phone: Comment on above: 1 Occurrences starti ng 11/27/2023 until 11/26/2024 End: 10-27-2022 Culture, Urine [facility] Phone: Comment on above: One Time for 1 Occur rences starting 10/27/2022 until 10/27/2022 End: 11-26-2024 Cyanocobalamin vitamin b-12 Vitamin B12 Lab Routine Obesity, Class II, BMI 35-39.9 1 Occurrences starting 11/27/2023 until 11/26/2024 [facility] Comment on above: 1 Occurrences starti ng 11/27/2023 until 11/26/2024 End: 11-26-2024 Hemoglobin A1c/Hemoglobin.total in Blood Hemoglobin A1c Lab Routine Obesity, Class II, BMI 35-39.9 1 Occurrences starting 11/27/2023 until 11/26/2024 [facility] Comment on above: 1 Occurrences starti ng 11/27/2023 until 11/26/2024 End: 11-26-2024 Iron [Mass/volume] in Serum or Plasma Iron Lab Routine Obesity, Class II, BMI 35-39.9 1 Occurrences starting 11/27/2023 until 11/26/2024 [facility] Comment on above: 1 Occurrences starti ng 11/27/2023 until 11/26/2024 End: 11-26-2024 Liver panel Liver panel Lab Routine Obesity, Class II, BMI 35-39.9 1 Occurrences starting 11/27/2023 until 11/26/2024 [facility] Comment on above: 1 Occurrences starti ng 11/27/2023 until 11/26/2024 End: 11-26-2024 Parathyroid Hormone, intact Parathyroid Hormone, intact Lab Routine Obesity, Class II, BMI 35-39.9 1 Occurrences starting 11/27/2023 until 11/26/2024 [facility] Comment on above: 1 Occurrences starti ng 11/27/2023 until 11/26/2024 End: 11-26-2024 Thyrotropin [Units/volume] in Serum or Plasma TSH Lab Routine Obesity, Class II, BMI 35-39.9 1 Occurrences starting 11/27/2023 until 11/26/2024 [facility] Comment on above: 1 Occurrences starti ng 11/27/2023 until 11/26/2024 End: 11-26-2024 Vitamin D 25 hydroxy Vitamin D 25 hydroxy Lab Routine Obesity, Class II, BMI 35-39.9 1 Occurrences starting 11/27/2023 until 11/26/2024 [facility] Comment on above: 1 Occurrences starti ng 11/27/2023 until 11/26/2024 Immunizations Immunization Date Immunization Notes Care Provider Fa cili 12-11-2020 influenza virus vaccine, unspecified formulation Jaylen Brown MD Work Phone: [facility] Payers Date Payer Category Payer Private Health Insurance [id number] 2023 Managed Care Other (unspecified) [id number] 2023 Unknown [id number] 2020 Unknown [id number] 2012 Unknown [id number] 1981 Unknown [id number] [id number]3 1981 Unknown [id number] 2.16840.1.358804.3.579.2.593 1981 Unknown [id number] 2.16840.1.274847.3.579.2.593 1981 Unknown [id number] 2.840.1.093935.3.579.2.128 1981 Unknown [id number] 2.840.1.202780.3.579.2.1285 1981 Unknown [id number] 2.840.1.943873.3.579.2.128 1981 Unknown [id number] 2.840.1.989420.3.579.2.1285 1981 Unknown [id number] 2.840.1.270818.3.579.2.128 1981 Unknown [id number] 2.840.1.391283.3.579.2.128 1981 Unknown [id number] 2.840.1.324766.3.579.2.727 1981 Unknown [id number] 2.840.1.175961.3.579.2.727 1981 Unknown [id number] 2.16840.1.589940.3.579.2.1286 1981 Unknown [id number] 2.16840.1.619331.3.579.2.1286 1981 Unknown [id number] 2.16840.1.314409.3.579.2.1286 1981 Unknown [id number] 2.16.840.1.377310.3.579.2.1286 1981 Unknown [id number] 2.16.840.1.881398.3.579.2.1286 1981 Unknown [id number] 2.16.840.1.463077.3.579.2.1286 1981 Unknown [id number] 2.16.840.1.449638.3.579.2.1286 1981 Unknown [id number] 2.16.840.1.235090.3.579.2.173 1959 Unknown [id number] Social History Date Type Detail Facility Tobacco smoking stat [facility] Tobacco smoking consumption unknown [facility] Start: 1981 Sex Assigned At Not on file B ON [facility] Start: 10-05-2022 End: 07-17-2024 Gender identity Not on file [facility] Start: 05-17-2021 Tobacco smoking stat [facility] Occasional tobacco smoker [facility] History of tobacco use Cigarette Smoker P [facility] Start: 05-17-2021 End: 07-17-2024 Cigarettes smoked current (pack per day) - Reported 0.5 [facility] Start: 05-17-2021 End: 07-17-2024 Tobacco use and exposure Smokeless tobacco non-user [facility] Start: 10-05-2022 End: 05-24-2024 Alcoholic beverage intake Current non-drinker of alcohol (finding) [facility] Adolescent depressio n screening assessment 0 [facility] Start: 09-14-2014 End: 10-27-2022 Sex Female (finding) [facility] Start: 07-17-2024 Tobacco smoking stat [facility] Ex-smoker [facility] History of tobacco use Current smoker [facility] Start: 07-17-2024 Alcoholic beverage intake Ex-drinker (finding) [facility] How often to you hav e a drink containing alcohol? Never [facility] Medical Equipment Procedure Code Equipment Code Equipment Origin al Text Equipment Identifier Dates [place] 4.75m m Swivelock Cls Eylt Vnt Pk 19.1mm Strl Disp Cls Use [id number] Ea=Bill Only - [id number] Start: 05-29-2021 Functional Status Date Assessment Result Facility [facility] Clinical Notes 10-27-2022 to 06-24-2024 Suresh SotoSalazar, LD - 06/24/2024 11:30 AM EDTPatient InstructionsSuresh Salazar, LD - 05/26/2024 10:00 AM EDTPatient InstructionsSuresh Salazar, - 04/25/2024 9:30 AM EDTPatient Instructions Note Date & Type Note Facility 06-24-2024 History of Present illness Narrative Bariatric Medical Nutrition Therapy Nutritional Assessment/Education Session #: 7 Video Visit via Real-time Synchronous Audiovisual Provider Location: [facility] [address] [place] [phone] Patient Location: Patient's home Video Visit Consent [...] that there are some limitations compared to [id number] evaluations. The patient consented to the presence of additional virtual and/or in-person participants. We elected to proceed. Tamy Lo is a 44 y.o. female who presents for follow up medical nutritional therapy for weight loss surgery. Weight Change 06/24/2024 Weight: 114.3 kg (252 lb) Weight Change: down 3 pounds in one month Tamy is doing well with her nutrition goals this month. She has increased her fruit and vegetable intake. She is still focusing on protein and eating frequent meals. Her physical activity has increased with the nicer weather. Diet Recall: Breakfast Snack Lunch Snack Dinner Snack Hard boiled egg and half wheat muffin with peanut butter Yogurt Chicken caesar salad Yogurt Chicken, green beans, and potatoes Beverage Intake: Water, Gatorade zero, morning boost pouch, and coffee with fat free creamer Physical Activity: Walking Bariatric Medical Nutrition Therapy Goal Summary Eat 4-5 meals per day. No night time snacking.: 100% of the time Avoid all sugars, sweets, desserts, and sugared beverages.: 100% of the time Eat fewer fried foods, limit fats added to foods, and avoid high-fat fast foods.: 100% of the time Eat protein-rich food at each meal.: 100% of the time Take a multi-vitamin/mineral supplement daily.: 100% of the time Sip liquids. Drink 64 ounces/day.: 75% of the time Eliminate drinks with sugar, carbonation, caffeine and alcohol.: 100% of the time Eat meals very slowly (appr 30 mins per meal). Stop eating when full.: 75% of the time Take small bites. Chew foods well.: 75% of the time Avoid emotional eating/mindless eating.: 100% of the time Exercise 3 - 5 times per week by: 100% of the time Nutrition Diagnosis: Obesity as evidenced by BMI. Body mass index is 39.47 kg/m . Nutrition Intervention: Nutrition education Discussed [...] eating. 11) Exercise 3 times per week. Additional information provided: Reviewed eating out tab in the bind. Discussed tips for eating out after surgery. Written information on all discussed has been provided within the [facility]. My contact name and number provided if questions or concerns arise. Nutrition Monitoring: To follow up in 1 month to show progress towards goals. Start time: 1124 End time: 1151 documented in this encounter [facility] 06-24-2024 Instructions AMANDA Kaur - 06/24/2024 11:30 AM EDT If you re looking for general health and wellness resources, please visit [email or web address]. Read the [facility] Bariatric Guide. documented in this encounter [facility]24 Note General Surgery Offi ce/Clinic Note Chief Complaint consultation for abdominal pain HPI Staff 44 year old female presents on consultation from Dr. Rowell for right lower quadrant pain. Reports 6 month history of intense right lower quadrant pain with bending. Reports pain will last until she gets herself upright. Verbalized sometimes she needs to stretch out in order for pain to resolve. Verbalized the best way she can describe pain is the feeling of something locking up . She has chronic nausea and bowel changes post cholecystectomy completed at the age of 19. Denies rectal pain or bleeding. She had normal EGD and colonoscopy completed in 2018. No imaging has been completed. History of Present Illness 44 yo female with h/o htn, migraines, nephrolithiasis, GERD, anxiety, eczema, class 3 obesity, referred for colonoscopy and EGD; patient with intermittent RLQ pain, sharp, no radiation, occurs only with bending over, relieved with straitening back up; no bowel changes or blood in stools, some chronic nausea, no emesis; had recent UGI in preparation for gastric sleeve surgery, just trace reflux; controlled with Protonix; abd operations significant for appendectomy, cholecystectomy and hysterectomy; had EGD and colonoscopy in 2018 that were reportedly normal; on Meloxicam daily, no asa; smokes daily; no fmhx of GI malignancy or IBD. Review of Systems PHQ Score Initial Depression Screen Score: 0 SCORE ROS - Provider Constitutional: no fever, no sweats, no weight loss. Eyes: no glasses, no blurred vision, no visual loss. ENMT: no dentures, no hoarseness, no swallowing difficulties, no hearing loss, no ear infection(s), no nose bleeds. Cardiovascular: normal blood pressure, no chest pain, regular heartbeat, no heart murmur. Respiratory: no shortness of breath, no cough, no asthma, no wheezing. Gastrointestinal: yes nausea, no vomiting, no diarrhea, no constipation, no blood in stool, no change in bowel habits, yes abdominal pain, no hepatitis. Genitourinary: no kidney stones, no urine infection, no dysuria. Musculoskeletal: no pain, no weakness. Skin: no changing moles, no rash, no skin lumps. Neurologic: no seizures, no epilepsy, no headache. Psychiatric: no emotional or psychiatric problem. Heme/Lymph: no bleeding problems, no anemia, no blood clots, no transfusions. Allergy/Immunologic: no swollen lymph nodes/glands, no IV drug abuse. Other: Additional ROS info: Except as noted in the above Review of Systems and in the History of Present Illness, all other systems have been reviewed and are negative or noncontributory. Physical Exam Vitals & Measurements HR: 72(Peripheral) RR: 16 BP: 138/104 HT: 67 in HT: 170 cm WT: 264.554 lb WT: 120 kg BMI: 41.52 HEENT: normal conjunctiva, sclera clear, no scleral icterus, EOM intact, PERRLA, oral mucosa moist without lesions. Neck: trachea midline, no mass, symmetric, no thyromegaly or nodules, no adenopathy Respiratory: lungs CTA, respirations non labored. Cardiovascular: regular rate and rhythm, no murmur, no pedal edema or varicosities. Gastrointestinal: obese,soft, non distended, mild tenderness, RLQ to deep palpation, no peritoneal signs no masses, no palpable hernias, diastasis recti no, no hepatosplenomegaly; normal bs Lymphatic: no cervical adenopathy, no supraclavicular adenopathy. Musculoskeletal: normal gait, digits and nails without infection, nodes, cyanosis, clubbing. Skin: no rashes, no lesions, no ulcers, no subcutaneous nodules, induration. Psychiatric/Neuro: oriented to time, place, person, judgement normal, affect appropriate for age, insight intact, no focal deficits. Tests:review of old records completed , Discussed surgical options, risks, and possible complications with patient. Assessment/Plan 1. Right lower quadrant abdominal pain (R10.31: Right lower quadrant pain) plan abd/pelvic ct scan with contrast for further evaluation; will call patient with results; may be related to adhesions from multiple abd operations; patient to call sooner ir problems/questions. Ordered: CT Abdomen/Pelvis w/ Contrast E&M of New Patient Moderate 45-59 Min 94346 2. Tobacco use (Z72.0: Tobacco use) We strongly recommend to quit tobacco use. Cigarette smoking harms nearly every organ of the body, causes many diseases, and reduces the health of smokers in general. Quitting smoking lowers your risk for smoking-related diseases and can add years to your life. We encourage you to visit www.smokefree.gov access to helpful resources including free telephone support. If you decide on prescription treatment to help you quit, your family doctor would be happy to provide these. Ordered: E&M of New Patient Moderate 45-59 Min 38731 Follow-up No qualifying data available Problem List/Past Medical History Ongoing Anxiety Bilateral lower limb superficial vein thrombophlebitis BMI 40.0-44.9, adult Class 3 obesity Eczema Gastroesophageal reflux disease History of n (more content not included)... [facility] Comment on above: Result Comment: Elec tronically Signed By: GENNY KIMBLE, Quoc [email or web address]\Date and Time Signed: 05/31/24 15:28 EDT 05-26-2024 History of Present illness Narrative Bariatric Medical Nutrition Therapy Nutritional Assessment/Education Session #: 6 Video Visit via Real-time Synchronous Audiovisual Provider Location: [facility] [address] [place] [phone] Patient Location: Patient's home Video Visit Consent [...] that there are some limitations compared to iswh-cg-[id number] evaluations. The patient consented to the presence of additional virtual and/or in-person participants. We elected to proceed. Tamy Lo is a 44 y.o. female who presents for follow up medical nutritional therapy for weight loss surgery. Weight Change 05/26/2024 Weight: 114.3 kg (252 lb) Weight Change: up 3 pounds in one month Tamy is doing well with her nutrition goals despite having a stressful month with being sick. She is officially off of all nicotine products. She is walking each day and is not drinking sugar sweetened beverages. She is tracking her meals in an tomasa with calories around 1600 a day. 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 Diet Recall: Breakfast Snack Lunch Snack Dinner Snack Egg Salad with boiled egg, carrots, and low fat ranch Celery and peanut butter Ground turkey brown rice, tomato sauce, green peppers, and onion Beverage Intake: Water, Gatorade zero, and coffee with fat free creamer Physical Activity: Walking every day (other than week when she was sick) Bariatric Medical Nutrition Therapy Goal Summary Eat 4-5 meals per day. No night time snacking.: 100% of the time Avoid all sugars, sweets, desserts, and sugared beverages.: 100% of the time Eat fewer fried foods, limit fats added to foods, and avoid high-fat fast foods.: 100% of the time Eat protein-rich food at each meal.: 100% of the time Take a multi-vitamin/mineral supplement daily.: 100% of the time Sip liquids. Drink 64 ounces/day.: 100% of the time Eliminate drinks with sugar, carbonation, caffeine and alcohol.: 100% of the time Eat meals very slowly (appr 30 mins per meal). Stop eating when full.: 100% of the time Take small bites. Chew foods well.: 75% of the time Avoid emotional eating/mindless eating.: 100% of the time Exercise 3 - 5 times per week by: 100% of the time Nutrition Diagnosis: Obesity as evidenced by BMI. Body mass index is 39.47 kg/m . Nutrition Intervention: Nutrition education Discussed [...] eating. 11) Exercise 3 times per week. Additional information provided: Discussed medication, alcohol/smoking and exercise sections of the [facility]. Written information on all discussed has been provided within the [facility]. My contact name and number provided if questions or concerns arise. Nutrition Monitoring: To follow up in 1 month to show progress towards goals. Start time: 54 End time: 1021 documented in this encounter [facility] 05-26-2024 Instructions AMANDA Kaur - 05/26/2024 10:00 AM EDT If you re looking for general health and wellness resources, please visit [email or web address] Read [facility]. documented in this encounter [facility] 04-25-2024 History of Present illness Narrative Bariatric Medical Nutrition Therapy Nutritional Assessment/Education Session #: 5 Video Visit via Real-time Synchronous Audiovisual Provider Location: [facility] [address] [place] [address] Patient Location: Patient's home Video Visit Consent [...] that there are some limitations compared to zevf-ec-yizk evaluations. The patient consented to the presence of additional virtual and/or in-person participants. We elected to proceed. Tamy Lo is a 43 y.o. female who presents for follow up medical nutritional therapy for weight loss surgery. Weight Change 04/25/2024 Weight: 114.3 kg (252 lb) Weight Change: up 2 pounds in one month Tamy is doing well working on her nutrition goals this month. She is avoiding sweets and fried foods. She is limiting her starch intake and eating protein with each meal. She is more active outside with her family with the nicer weather. Diet Recall: Breakfast Snack Lunch Snack Dinner Snack Egg and wheat muffin Yogurt (Light and Fit) Salad with tomato, chicken, and light Ranch Yogurt (Light and Fit Taco salad with cheese and salsa (lean hamburger) Beverage Intake: Coffee (not every morning), water, and Gatorade zero Physical Activity: Walking (more with sunshine) and swimming Bariatric Medical Nutrition Therapy Goal Summary Eat 4-5 meals per day. No night time snacking.: 100% of the time Avoid all sugars, sweets, desserts, and sugared beverages.: 100% of the time Eat fewer fried foods, limit fats added to foods, and avoid high-fat fast foods.: 100% of the time Eat protein-rich food at each meal.: 100% of the time Take a multi-vitamin/mineral supplement daily.: 100% of the time Sip liquids. Drink 64 ounces/day.: 75% of the time (not eating and drinking together) Eliminate drinks with sugar, carbonation, caffeine and alcohol.: 100% of the time Eat meals very slowly (appr 30 mins per meal). Stop eating when full.: 75% of the time Take small bites. Chew foods well.: 75% of the time Avoid emotional eating/mindless eating.: 100% of the time Exercise 3 - 5 times per week by: 100% of the time Nutrition Diagnosis: Obesity as evidenced by BMI. Body mass index is 38.54 kg/m . Nutrition Intervention: Nutrition education Discussed [...] eating. 11) Exercise 3 times per week. Additional information provided: Discussed many healthy eating techniques to assist in weight loss. Written information on all discussed has been provided within the [facility]. My contact name and number provided if questions or concerns arise. Nutrition Monitoring: To follow up in 1 month to show progress towards goals. Start time: 933 End time: 1002 [facility] Instructions AMANDA Kaur - 04/25/2024 9:30 AM EDT If you re looking for general health and wellness resources, please visit [email or web address]. [facility]. [facility] History of Present illness Narrative Bariatric Medical Nutrition Therapy Nutritional Assessment/Education Session #: 4 Video Visit via Real-time Synchronous Audiovisual Provider Location: [facility] [address] [place] [phone] Patient Location: Patient's home Video Visit Consent [...] that there are some limitations compared to njbf-lg-jkyl evaluations. The patient consented to the presence of additional virtual and/or in-person participants. We elected to proceed. Tamy Lo is a 43 y.o. female who presents for follow up medical nutritional therapy for weight loss surgery. Weight Change 03/28/2024 Weight: 113.4 kg (250 lb) Weight Change: Weight did not change Tamy is doing well with her nutrition goals this month. Her family is still going to the [facility] at least 3 days a week together. She is focusing on protein with each meal and has an occasional starch once a day. She is avoiding all sugar sweetened beverages. She is eating every 3 hours. Diet Recall: Breakfast Snack Lunch Snack Dinner Snack Half wheat muffin with peanut butter Yogurt Salad with chicken Celery and peanut butter Chicken and green beans Beverage Intake: Water, tea, Gatorade zero, coffee (fat free) Physical Activity: [employer] (swimming and walking) at least 3 days a week Bariatric Medical Nutrition Therapy Goal Summary Eat 4-5 meals per day. No night time snacking.: 100% of the time Avoid all sugars, sweets, desserts, and sugared beverages.: 100% of the time Eat fewer fried foods, limit fats added to foods, and avoid high-fat fast foods.: 100% of the time Eat protein-rich food at each meal.: 100% of the time Take a multi-vitamin/mineral supplement daily.: 100% of the time Sip liquids. Drink 64 ounces/day.: 100% of the time Eliminate drinks with sugar, carbonation, caffeine and alcohol.: 100% of the time Eat meals very slowly (appr 30 mins per meal). Stop eating when full.: 75% of the time Take small bites. Chew foods well.: 75% of the time Avoid emotional eating/mindless eating.: 100% of the time Exercise 3 - 5 times per week by: 100% of the time Nutrition Diagnosis: Obesity as evidenced by BMI. Body mass index is 38.24 kg/m . Nutrition Intervention: Nutrition education Discussed [...] eating. 11) Exercise 3 times per week. Additional information provided: Discussed vitamin/mineral regimen need after weight loss surgery to prevent nutrient deficiencies. This includes: 1) 2 multivitamins with iron daily or 1-2 bariatric vitamins (depending on brand) 2) 6532-4338 mg calcium in divided doses (2x/day) for sleeve and gastric bypass, 8489-0583 mg in divided doses (3x/day) for SADS and distalization of bypass. Calcium Citrate can be taken with or without meals, however Calcium Carbonate should be consumed with meals. Take at least 2 hours before or after taking iron, since calcium will decrease iron absorption. 3) 350-1000 mcg oral vitamin B12 daily or 1000 mcg monthly injectable. Pt agrees to comply with this vitamin/mineral regimen after surgery. Written information on all discussed has been provided within the [facility] Bariatric Guide. My contact name and number provided if questions or concerns arise. Nutrition Monitoring: To follow up in 1 month to show progress towards goals. Start time: 1520 End time: 1540 documented in this encounter [facility] 03-28-2024 Instructions AMANDA Kaur - 03/28/2024 3:30 PM EST If you re looking for general health and wellness resources, please visit [email or web address]. Read [facility]. documented in this encounter [facility] 02-26-2024 History of Present illness Narrative Bariatric Medical Nutrition Therapy Nutritional Assessment/Education Session #: 3 Video Visit via Real-time Synchronous Audiovisual Provider Location: [facility] [address] [place] [phone] Patient Location: Patient's home Video Visit Consent [...] that there are some limitations compared to bock-ys-xkgq evaluations. The patient consented to the presence of additional virtual and/or in-person participants. We elected to proceed. Tamy Lo is a 43 y.o. female who presents for follow up medical nutritional therapy for weight loss surgery. Weight Change 02/26/2024 Weight: 115.7 kg (255 lb) Weight Change: down 5 pounds in one month Tamy is doing well with her nutrition goals leading to a weight loss of 5 pounds this month. She is working on increasing her protein intake. She is avoiding all sugar sweetened beverages. She has increased her physical activity this month with going to the gym 3 days a week. She has been coloring and cleaning to stay busy and avoid emotional or bored eating. Diet Recall: Breakfast Snack Lunch Snack Dinner Snack Scrambled eggs with half wheat malagasy muffin Yogurt (one fit) Chicken caesar salad with low fat dressing Taco (corn tortilla) with hamburger, lettuce, and cheese Yogurt Beverage Intake: Gatorlyte (with being sick), water, ice tea, and one coffee with fat free creamer Physical Activity: Going to the [employer] 3 times a week (walking on treadmill and elliptical) and swimming 3 days a week Bariatric Medical Nutrition Therapy Goal Summary Eat 4-5 meals per day. No night time snacking.: 100% of the time Avoid all sugars, sweets, desserts, and sugared beverages.: 100% of the time Eat fewer fried foods, limit fats added to foods, and avoid high-fat fast foods.: 100% of the time Eat protein-rich food at each meal.: 100% of the time Take a multi-vitamin/mineral supplement daily.: 100% of the time Sip liquids. Drink 64 ounces/day.: 100% of the time Eliminate drinks with sugar, carbonation, caffeine and alcohol.: 75% of the time Eat meals very slowly (appr 30 mins per meal). Stop eating when full.: 75% of the time Take small bites. Chew foods well.: 75% of the time Avoid emotional eating/mindless eating.: 100% of the time Exercise 3 - 5 [...] eating. 11) Exercise 3 times per week. Additional information provided: Discussed the importance of adequate protein intake after weight loss surgery to promote healing and prevent protein-malnutrition. Discussed protein shake guidelines. Written information on all discussed has been provided within the [facility]. My contact name and number provided if questions or concerns arise. Nutrition Monitoring: To follow up in 1 month to show progress towards goals. Start time: 1157 End time: 1222 documented in this encounter [facility] 02-26-2024 Instructions AMANDA Kaur - 02/26/2024 12:00 PM EST If you re looking for general health and wellness resources, please visit [email or web address]. Read [facility]. documented in this encounter [facility] 01-11-2024 History of Present illness Narrative Bariatric Medical Nutrition Therapy Nutritional Assessment/Education Session #: 2 Video Visit via Real-time Synchronous Audiovisual Provider Location: [facility] [address] [place] [phone] Patient Location: Patient's home Video Visit Consent [...] that there are some limitations compared to jmaf-tk-nqxo evaluations. The patient consented to the presence [...] gravy, scrambled eggs, sausage, and cheese) Low-fat spanish yogurt Tomato soup and grilled cheese Salad [...] all discussed has been provided within the [facility]. My contact name and number provided if questions or concerns arise. Nutrition Monitoring: To follow up in 1 month to show progress towards goals. Start time: 1158 End time: 1222 documented in this encounter [facility] 01-11-2024 Instructions AMANDA Kaur - 01/11/2024 12:00 PM EST If you re looking for general health and wellness resources, please visit [email or web address] Read [facility]. documented in this encounter [facility] 12-11-2023 History of Present illness Narrative Bariatric Medical Nutrition Therapy Nutritional Assessment/Education Initial Nutrition Education Video Visit via Real-time Synchronous Audiovisual Provider Location: [facility] [address] [place] [phone] Patient Location: Patient's home Video Visit Consent [...] that there are some limitations compared to hqrh-rs-nuxk evaluations. The patient consented to the presence [...] weight loss. 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 My contact name and number provided if questions or concerns arise. Nutrition Monitoring: To follow up in 1 month to show progress towards goals. Start time: 852 End time: 950 documented [facility] 12-11-2023 Instructions AMANDA Kaur - 12/11/2023 9:00 AM EDT If you re looking for general health and wellness resources, please visit [email or web address]. Read the [facility]. documented in this [facility] 11-27-2023 History of Present illness Narrative [facility] [address] [facility] [phone] [facility] SURGICAL WEIGHT LOSS PROGRAM [...] Performed by Aries Haro Jr., DO at [facility] ARTHROSCOPY REPAIR ROTATOR CUFF SHOULDER [id number], SUBACROMIAL DECOMPRESSION 43546/extensive debridement Right 05/29/2021 Performed by Luigi Vargas MD at [facility] CHOLECYSTECTOMY COLONOSCOPY N/A 2017 Performed by Sancho Curry MD at [facility] EGD N/A 2017 Performed by Sancho Curry MD at [facility] HYSTERECTOMY partial OOPHORECTOMY Right Family History: [...] Parkinson's [] [x] Anxiety disorder [] [x] Genitourinary/Barge Pilot YES NO Skin Intact [x] [] Urinary [...] you have any difficulty moving your head [id number]? [x] No [] Yes Do you have [...] turgor normal, no rashes or lesions Neurologic: tableau developer intact, normal strength. Alert and oriented. Follows [...] Testing Screening Chest Xray and EKG at [facility] appointment Labwork: Final Lab Tests at [facility] appointment Please note that this chart was generated using voice recognition M*Modal dictation software. Although every effort was made to ensure the accuracy of this automated proofer, some errors in proofer may have occurred. documented in this encounter [facility] 10-27-2022 Hospital Discharge instructions Tyler Galarza PA-C [...] cannot be sent through Care Everywhere.Flank Pain (Libyan)documented in this encounter [facility] Evaluation note Diagnosis Left flank pain- Primary Abdominal pain, unspecified site [facility] Diagnosis Morbid obesity (CMS-HCC)- Primary Morbid obesity Pre-bariatric surgery nutrition evaluation Obesity, Class II, BMI 35-39.9 [facility] Diagnosis Obesity, Class II, BMI 35-39.9- Primary Gastroesophageal reflux disease, unspecified whether esophagitis present [facility] Diagnosis Morbid obesity (CMS-HCC)- Primary Morbid obesity Pre-bariatric surgery nutrition evaluation Obesity, Class II, BMI 35-39.9 [facility] Diagnosis Morbid obesity (CMS-HCC)- Primary Morbid obesity Pre-bariatric surgery nutrition evaluation [facility] Diagnosis Morbid obesity (CMS-HCC)- Primary Morbid obesity Pre-bariatric surgery nutrition evaluation [facility] Diagnosis Hydroureteronephrosis- Primary Hydronephrosis Right flank pain Abdominal pain, unspecified site [facility]* Attachments The following attachments cannot be sent through Care Everywhere. * Hydronephrosis: General Info (Libyan) * Hydronephrosis: Fast Facts: Video (Libyan) * Flank Pain (Libyan) [facility] Purpose Family History No [...] section and content) DATE CREATED AUTHOR 08/22/2017 [facility] DATE CREATED AUTHOR AUTHOR'S ORGANIZ ATION 04/28/2022 [facility] DATE CREATED AUTHOR AUTHOR'S ORGANIZ ATION 05/26/2024 [facility] DATE CREATED AUTHOR AUTHOR'S ORGANIZ ATION 05/28/2024 [facility] DATE CREATED AUTHOR AUTHOR'S ORGANIZ ATION 06/01/2024 [facility] DATE CREATED AUTHOR AUTHOR'S ORGANIZ ATION 06/25/2024 [facility] DATE CREATED AUTHOR AUTHOR'S ORGANIZ ATION 07/17/2024 [facility] Reason for Visit (unrecogniz ed section and content) Reason Comments Flank Pain Left flank pain ongo ing for the past few days. on 4th day of macrobid, completed 2 other courses of antibiotics for ongoing UTI for 3 weeks. Reason Comments Nutrition Counseling Specialty Diagnoses / Procedures Referred By Muriel guillen Referred To Contact Nutrition Diagnoses Obesity, Class II, BMI 35-39.9 Jaylen Brown MD [address] [place] [address] Phone: tel: fax: Referral ID Status Reason Start Date Expiration Date Visits Requested Visits Authorized [id number] Pending Review Specialty Services Required 11/26/2024 12 12 Reason Comments New Patient Reason Comments Flank Pain Right side radiating to front, onset 3 days ago Scheduled Active and Recently Administ ered Medications (unrecognized section and content) Medication Order 10/25/2022 10/26/2022 10/27/2022 ketorolac (TORADOL) injection 15 mg (COMPLETED) 15 mg, IntraVENous, ONCE, 1 dose, On 10/27/22 at 1900, Do not administer for more [...] 1749 (Given - Provid er: Rima Gleason) Scheduled Medication Order 07/15/2024 07/16/2024 07/17/2024 ketorolac [...] 0822 (Given - Provid er: Libertad Lubin) Care Teams (unrecognized sec tion and content) Foundry Worker Relationship Specialty Start Date End Date Francia Rowell MD PCP - General 04/30/17 Foundry Worker Relationship Specialty Start Date End Date Francia Rowell MD PCP - General 04/30/17 Foundry Worker Relationship Specialty Start Date End Date Francia Rowell MD PCP - General 04/30/17 Foundry Worker Relationship Specialty Start Date End Date Francia Rowell MD PCP - General 04/30/17 Foundry Worker Relationship Specialty Start Date End Date Francia Rowell MD [address] [place] [address] PCP - General Family Medicine 08/05/23 Ordered Prescriptions (unrec ognized section and content) Prescription Sig Dispense Quantity Refills Last Filled Start Date End Date naproxen (NAPROSYN) 500 MG tablet Take 1 tablet by mouth 2 times daily as needed for Pain 20 tablet 1 07/17/2024 ondansetron (ZOFRAN) 4 MG tablet Take 1 tablet by mouth 3 times daily as needed for Nausea or Vomiting 8 tablet 07/17/2024 FOR RECORDS PERTAINING TO PATIENTS WHO ARE [...] BE BASED ON THE PRIMARY CLINICAL RECORDS. [facility]. provides no warranty or guarantee of the accuracy or completeness of information in this document.
== END 2024-07-25 09:44 | disposition home or self-care (01) ==
PROVIDERS: PCP Family Medicine; Visit Provider Family Medicine
DX: N20.0 Calculus of kidney (principal)
CPT/HCPCS: 76770

== ENCOUNTER 2024-07-25 16:58 | Outpatient (OUT) | payer OTHER, SELFPAY ==
[2024-07-25 17:12] LABS: Basophils Percent Auto 0.2 % (0.2-2.0); Eosinophils Absolute Auto 0.1 10^3/uL (0.0-0.7); Eosinophils Percent Auto 0.8 % (0.9-7.0); Hematocrit 45.4 % (36.0-48.0); Hemoglobin 15.5 g/dL (12.0-16.0); Immature Granulocytes Abs Auto 0.05 10^3/uL (0.00-0.03); Immature Granulocytes Pct Auto 0.3 % (0.0-0.5); Lymphocytes Absolute Auto 2.8 10^3/uL (1.2-3.8); Lymphocytes Percent Auto 19.2 % (20.5-60.0); Mean Corpuscular HGB Conc 34.1 g/dL (29.9-35.2); Mean Corpuscular Hemoglobin 31.3 pg (26.7-34.0); Mean Corpuscular Volume 91.7 fL (81.0-99.0); Mean Platelet Volume 9.1 fL (9.5-13.5); Monocytes Percent Auto 6.8 % (1.7-12.0); Neutrophils Absolute Auto 10.5 10^3/uL (1.4-6.5); Neutrophils Percent Auto 72.7 % (43.0-75.0); Platelet Count 280 10^3/uL (150-450); Red Blood Count 4.95 10^6/uL (4.20-5.40); Red Cell Distribution Width 13.6 % (11.0-15.0); White Blood Count 14.5 10^3/uL (4.0-11.0)
[2024-07-25 17:32] LABS: Alanine Aminotransferase 24 U/L (14-59); Albumin Globulin Ratio 0.8; Albumin Level 3.8 g/dL (3.4-5.0); Alkaline Phosphatase 96 U/L (46-116); Anion Gap 14.2; Aspartate Amino Transferase 15 U/L (15-37); BUN Creatinine Ratio 12.3; Bilirubin Total 0.3 mg/dL (0.2-1.0); Calcium 8.8 mg/dL (8.5-10.1); Carbon Dioxide 29.6 mmol/L (21.0-32.0); Chloride 98 mmol/L (98-107); Estimated GFR (African America >60 (>=60 mL/min/1.73m^2); Estimated GFR (Non-African Ame >60 (>=60 mL/min/1.73m^2); Globulin 4.9 g/dL; Glucose 91 mg/dL (74-106); Potassium 3.8 mmol/L (3.5-5.1); Sodium 138 mmol/L (136-145); Total Protein 8.7 g/dL (6.4-8.2)
[2024-07-25 17:48] LABS: Erythrocyte Sedimentation Rate 50 mm/hr (<=20)
== END 2024-07-25 16:59 | disposition home or self-care (01) ==
PROVIDERS: PCP Family Medicine; Visit Provider Family Medicine
DX: K57.92 Diverticulitis of intestine, part unspecified, without perforation or abscess without bleeding (principal)
CPT/HCPCS: 36415; 80053; 85025; 85652

== ENCOUNTER 2024-12-21 10:50 | Outpatient (RCR) | payer OTHER, SELFPAY ==
[2024-12-21 10:56] VITALS: BP 126/85; PULSE 83; TEMP 36.8; O2SAT 97
[2024-12-21] MEDS: 0.9 % SODIUM CHLORIDE 1,000 ML 999 ML IV ×2 (11:04→12:05)
== END 2025-01-08 23:59 | disposition home or self-care (01) ==
LOC: INF 10:50
PROVIDERS: PCP Family Medicine; Visit Provider Family Medicine
DX: E86.0 Dehydration (principal)
CPT/HCPCS: 96360; 96361

== ENCOUNTER 2025-01-02 11:24 | Outpatient (OUT) | payer OTHER, SELFPAY ==
--- OUTSIDE RECORDS SUMMARY | 2024-11-29 04:30 | XMS_ITS ---
Author Organization [facility] in [place] Address [address] [place] [address] Care Team Providers Care Necktie Turner Name Role Phone Mk Rowell Primary Care Provider REASON FOR VISIT annual Encounters Encounter Location Date Provider Diagnosis [address] [phone] 11/29/2024 Mk Rowell Plan Of Treatment No Information Progress Notes * Sierra LO MDOB:1980 (44 yo F)Acc No.[id number]:11/29/2024 UNLOCKED PROGRESS NOTE Progress Note Patient: Sierra GARRIDO :?Jorge L BOYD), MDDOB:1980???Age: 44 Y???Sex:FemaleDate:11/29/2024Phone:[phone]:[facility]A CABRERA DRBO[facility] CENTERWO-[id number] Subjective: * Chief Complaints: * 1 . Annual. * Medical History: Objective: * Vitals: Assessment: Plan: * Treatment: * * Electronic signature of Mk Rowell MD, [id number] on 01/02/2025 at 11:28 AM EST Sign off status: PendingVisit Status:?CANCPHONE (Cancelled Phone) * Provider: Megan Rowell MD (TTC) Date: 1 Generated for Printing/Faxing/eTransmitting on:?01/02/2025 11:28 AM EST
--- OUTSIDE RECORDS SUMMARY | 2025-01-02 11:29 | XMS_ITS | Clinical Summary ---
Author Organization Vortal tem Address [id number] [address] [place] [address] Care Team Providers Care Chief Program Officer Name Role Phone Jorge L Rowell MD Primary Care Provider [phone] Allergies Active AllergyReactionsCriticalityNoted DateCommentsHydromorphoneFacial Swelling High2017 Medications MedicationSigDispense QuantityRefillsLast FilledStart DateEnd DateStatus triamcinolone (KENALOG) 0.1 % cream Apply 1 Application topically as needed.04/09/2021ctive rimegepant (NURTEC ODT) 75 mg tablet,disintegrating Dissolve 1 tablet (75 mg total) on tongue once as needed.Active ondansetron (ZOFRAN) 4 mg tablet Indications:Postoperative nauseaTake 1 tablet (4 mg total) by mouth every 8 (eight) hours as needed for nausea or vomiting. 30 tablet 06/24/2021ctive metoprolol tartrate (LOPRESSOR) 50 mg tablet Take 1 tablet (50 mg total) by mouth in the morning and 1 tablet (50 mg total) before bedtime.Active KLOR-CON M20 20 mEq CR tablet Take 1 tablet (20 mEq total) by mouth daily as needed. TAKE 1 BY MOUTH TWICE DAILY WITH FOOD11/13/2023ctive baclofen (LIORESAL) 20 mg tablet Take by mouth daily as needed.5Active escitalopram (LEXAPRO) 10 mg tablet Take 1 tablet (10 mg total) by mouth in the morning.Active oxaprozin (DAYPRO) 600 mg tablet Take 1 tablet (600 mg total) by mouth in the morning.5Active tiZANidine (ZANAFLEX) 4 mg tablet TAKE 2 TABLETS BY MOUTH ONCE DAILY AT BEDTIME NEEDEDActive furosemide (LASIX) 20 mg tablet Take 1 tablet (20 mg total) by mouth daily as needed.5Active pantoprazole (PROTONIX) 40 mg EC tablet Take 1 tablet (40 mg total) by mouth every morning before breakfast for 90 days. 90 tablet 515Active docusate sodium (COLACE) 100 mg capsule Indications:History of sleeve gastrectomy,Malnutrition following gastrointestinal surgery,Postsurgical malabsorption,Constipation, unspecified constipation typeTake 1 capsule (100 mg total) by mouth 2 (two) times a day as needed for constipation. 60 capsule 5Active ondansetron ODT (ZOFRAN ODT) 4 mg disintegrating tablet Dissolve 1 tablet (4 mg total) on tongue every 8 (eight) hours as needed for nausea for up to 10 doses. 10 tablet 5Active Active Problems ProblemNoted DateDiagnosed DateBreast cyst, right03/10/2022reast pain03/10/2022 Family history of breast jmelnt3703/04/2022 Overview (03/04/2022): Sister at age 35 Labral tear of shoulder, right, initial wfooncodx60/24/2022 Overview (05/02/2021): Added automatically from request for surgery [id number] Biceps tendinitis, right05/02/2021 Overview (05/02/2021): Added automatically from request for surgery [id number] Traumatic complete tear of right rotator cuff03/11/2021ituitary microadenoma 05/22/2020Obesity Encounters DateTypeDepartmentCare NcqaCteccfaqage88/05/2025 8:57 PM EDT - 11/13/2024 10:32 PM EDTEmergency [facility] [address] [place] [address] Roderick Davis MD Non-intractable vomiting with nausea (Primary Dx) Discharge Disposition: Home11/13/20241290Cvpsul34/05/2025Telephone [facility] [address] [place] [phone] Lisa Chambers Post-op Ryirrpa0211/01/2024Orders Only [facility] [address] [place] [phone] Ai Kern RN History of sleeve gastrectomy (Primary Dx); Malnutrition following gastrointestinal surgery; Postsurgical malabsorption; Constipation, unspecified constipation type10/28/2024 11:30 AM EDTTelemedicine [facility]ians [address] [place] [phone] Chrissy Sow LD Morbid obesity ([facility]) (Primary Dx); History of sleeve gastrectomy; Malnutrition following gastrointestinal surgery; Postsurgical malabsorption; Dietary counseling and orqwoqzeputt89/19/2025 10:00 AM EDTOffice Visit [facility] [address] [place] [phone] Opal Ramirez MD Obesity, Class II, BMI 35-39.9 (Primary Dx); History of sleeve lvuqqdnkemx38/18/1511Ndjjsh71/15/2025Telephone [facility] [address] [place] [phone] Belinda De Jesus RN 10/20/2024 9:45 AM EDT - 10/20/2024 12:00 PM EDTSurgery [facility] [address] [place] [phone] Opal Ramirez MD LAPAROSCOPIC SLEEVE GASTRECTOMY [41917 (CPT??)]10/20/2024 9:35 AM EDTAnesthesia Event [facility] [address] [place] [phone] Xenia Perdomo MD Burt, Spencer, SRNA 10/20/2024 7:34 AM EDT - 10/20/2024 2:35 PM EDTHospital Encounter [facility] - Surgery [address] [place] [address] Opal Ramirez MD Postoperative pain (Primary Dx); Postoperative nausea; Status post laparoscopic sleeve gastrectomy Discharge Disposition: Home10/20/20245755Zaxbgj58/09/2025 2:00 PM EDTSupport Visit [facility] [address] [place] [address] Obesity, Class III, BMI 40-49.9 (morbid obesity) ([facility] [place] [place]) (Primary Dx); Hypertension, unspecified type; Gastroesophageal reflux disease, unspecified whether esophagitis present; Osteoarthritis, unspecified osteoarthritis type, unspecified site; Back pain, unspecified back location, unspecified back pain laterality, unspecified chronicity; Knee pain, unspecified chronicity, unspecified laterality; Edema, unspecified type10/17/2024 9:30 AM EDTProcedure visit [facility] On [address] [phone] Preop testing (Primary Dx); Morbid obesity ([facility] [place] [place])10/17/2024Travelfrom Last 3 Months Family History Medical HistoryRelationNameCommentsClotting disorderDaughter 1Alyssa Zahraa Clotting disorderDaughter 2AlyssaVon WillebrandClotting disorderDaughter 3Alyssa Von WillebrandCancerFatherRexBrainHypertensionFatherRexStrokeFatherRexCOPD Maternal GrandfatherBobNo Known ProblemsMotherDiabetesPaternal Grandmother PhyllisHypertensionPaternal GrandmotherPhyllisPancreatic cancerPaternal great-grandfatherBreast cancerSister 1AprilMiscarriages / StillbirthsSister 2 TabathaAnesthesia problemsNeg HxBil Breast CancerNeg HxColon cancerNeg Hx RelationNameStatusCommentsDaughter 1Alyssa KarrAliveDaughter 2AlyssaAlive Daughter 3AlyssaAliveFatherRexDeceasedMaternal GrandfatherBobAliveMotherAlive Paternal GrandmotherPhyllisAlivePaternal great-grandfatherOtherSister 1April Sister 2TabathaAlive Social History Tobacco UseTypesPacks/DayYears UsedDateSmoking Tobacco: FormerCigarettes0.518 Quit: 09/10/2023Smokeless Tobacco: Never Tobacco Cessation:Counseling Given: Not Answered Alcohol UseStandard Drinks/WeekCommentsNo0 (1 standard drink = 0.6 oz pure alcohol)PHQ-2AnswerDate RecordedTotal Fzyha1543ChildcareAnswerDate KqvuwzswUkxbhbyuiRleedvi65/12/2019EmploymentAnswerDate RecordedEmploymentUnknown 07/21/2018Hunger ScreeningAnswerDate RecordedWithin the past 12 months we worried whether our food would run out before we got money to buy more.Never True11/13/2024Within the past 12 months the food we bought just didn't last and we didn't have money to get more.Never True11/13/2024Purpose - LifeAnswerDate RecordedPurpose and direction in kggiUirtuyu38/11/2021CommentsNoSex and Gender InformationValueDate RecordedSex Assigned at BirthNot on fileLegal Sex Smjohk8409/14/2014 11:21 AM EDTGender IdentityNot on fileSexual OrientationNot on file Last Filed Vital Signs Vital SignReadingTime TakenCommentsBlood Fausfawq612/8811/13/2024 10:31 PM EDT Ydmif080911/13/2024 10:31 PM YHKGjgjwucvgdf29.8 ??C (98.3 ??F)11/13/2024 9:02 PM EDTRespiratory Mueh7454 10:31 PM EDTOxygen Fofxevfrea42%11/13/2024 10:31 PM EDTInhaled Oxygen Concentration--Njfpob840 kg (247 lb)11/13/2024 9:02 PM EDT Stmsnc209.2 cm (5' 7 )11/13/2024 9:02 PM EDTBody Mass Index38.6911/13/2024 9:02 PM EDT Plan of Treatment DateTypeDepartmentCare Team (Latest Contact Info)Wigdqiivbby41/19/2025 9:30 AM ESTOffice Visit [facility] [address] [place] [phone] Opal Ramirez MD [address] [place] [address] Health MaintenanceDue DateLast DoneCommentsDepression Arzvxqcuq87/07/2024 3DTaP,Tdap and Td Vaccines (2 - Td or Tdap)COVID-19 Vaccine (4 - 2024- season)/, 05/31/2020, 05/10/2020 Influenza Tksxavs93/01/2024, 12/11/2020, 11/15/2020, Additional history existsAdult BMI Follow Up Plan/dult BMI Screening Tobacco Nllukpeol79 Medical Devices ImplantedTypeAreaManufacturerDevice IdentifierShelf Expiration DateModel / Serial / LotAnchor Sut 4.75mm Swivelock Cls Eylt Vnt Pk 19.1mm Strl Disp Cls Use [id number] Ea=Bill Only - [id number] Implanted:Qty: 1 on 05/29/2021 by Luigi Vargas MD [facility]AnchorRight: ShoulderArthrex [id number] / / [id number] Procedures Procedure NamePriorityDate/TimeAssociated DiagnosisCommentsBASIC METABOLIC PANEL STAT1 9:20 PM EDT CBC WITH AUTO WLGXYJZSHSTUQJOY63/05/2025 9:20 PM EDT MT TAP BLOCK BILATERAL BY INJECTION(S)Lqcazqi9510/20/2024 3:33 PM EDT PM PERIPHERAL FLNETMxhqyao68/11/2025 3:33 PM EDT SURGICAL KWTXBEFKXRauozsi44/11/2025 10:14 AM EDT MT AN ELECTIVE ENDOTRACHEAL WNOFWRRbtjxua89/11/2025 9:45 AM EDT MT LAP, RAUL RESTRICT PROC, LONGITUDINAL XAXCFIOSUJZ59/11/2025 9:35 AM EDT MORBID OBESITY HYPERTENSION REFLUX Case Notes 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, 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) OUTPT PER INS TAP BLOCK Special Needs TAP BLOCK LIPID OCZDOMAVjbmesx30/08/2025 10:23 AM EDT Morbid obesity (CMS-HCC) PARATHYROID HORMOME, KTGNYXPlaejkk78/08/2025 10:23 AM EDT Morbid obesity (CMS-HCC) IRON AND WCBRWbbpvzv18/08/2025 10:23 AM EDT Morbid obesity (CMS-HCC) JFILBGSVPsbnyvb80/08/2025 10:23 AM EDT Morbid obesity (CMS-HCC) VITAMIN V06Lhnqctk57/08/2025 10:23 AM EDT Morbid obesity (CMS-HCC) THIAMIN (VITAMIN B1), HWWecncbx21/08/2025 10:23 AM EDT Morbid obesity (CMS-HCC) VITAMIN D 25 JQYEVXBObvuhyn64/08/2025 10:23 AM EDT Morbid obesity (CMS-HCC) CBC (NO DIFF)Fschkxb8510/17/2024 10:23 AM EDT Morbid obesity (CMS-HCC) PROTIME & CQSHxsrqqk03/08/2025 10:23 AM EDT Morbid obesity (CMS-HCC) BASIC METABOLIC QUTAGQtryybk87/08/2025 10:23 AM EDT Morbid obesity (CMS-HCC) LIVER YMDQYZsbefdf09/08/2025 10:23 AM EDT Morbid obesity (CMS-HCC) COIQZxmeuft45/08/2025 10:23 AM EDT Morbid obesity ([facility]) HEMOGLOBIN P3CNrvntdv58/08/2025 10:23 AM EDT Morbid obesity ([facility]) ECG 12-RNFWOabiyho19/08/2025 10:07 AM EDT Morbid obesity ([facility]) from Last 3 Months Results * CBC auto differential (11/13/2024 9:20 PM EDT)ComponentValueRef RangeTest MethodAnalysis TimePerformed AtPathologist SignatureWBC7.24 - 11 x10E9/L 11/13/2024 9:31 PM EDTPUC WEST [facility]STER HOSPITALRBC Count4.533.8 - 5.2 X10E12/L1 9:31 PM [facility] Yisnriomwf31.911.7 - 15.5 g/dL11/13/2024 9:31 PM EDTPUC WEST CHESTER HOSPITALHematocrit41.335 - 47 %11/13/2024 9:31 PM EDTPUC WEST [facility]STER HOSPITALMCV9180 - 100 fL11/13/2024 9:31 PM EDTPUC WEST [facility]STER HOSPITALMCH30.727 - 34 pg11/13/2024 9:31 PM EDTPUC WEST [facility]STER HOSPITALMCHC33.732 - 36 g/dL11/13/2024 9:31 PM EDTPUC WEST CHESTER HOSPITALRDW14.411.5 - 15 %11/13/2024 9:31 PM EDTHE METROHEALTH SYSTEMPlatelet Mhsle804660 - 450 X10E9/L1 9:[address] [facility] CAMPUSMPV8.47 - 12 fL11/13/2024 9:[address] [facility] CAMPUSNeutrophils %58.2%11/13/2024 9:[address] [facility] CAMPUSLymphocytes %32.9%11/13/2024 9:[address] [facility] CAMPUSMonocytes %6.6%11/13/2024 9:31 PM EDT [facility]OSPITALEosinophils %2.1%11/13/2024 9:[address] [facility]AMPUSBasophils %0.2%11/13/2024 9:[address] [facility] CAMPUSNeutrophils Absolute (A)4.21.5 - 6.6 10*3/uL11/13/2024 9:31 PM EDTPUC WEST CHESTER HOSPITALLymphocytes Absolute2.41.0 - 3.5 10*3/uL11/13/2024 9:31 PM EDTPUC WEST [facility]STER HOSPITALMonocytes Absolute0.50.0 - 0.9 10*3/uL11/13/2024 9:31 PM EDTPUC WEST [facility]STER HOSPITALEosinophils Absolute0.20.0 - 0.4 10*3/uL11/13/2024 9:31 PM EDTPUC WE[facility]STER HOSPITALBasophils Absolute0.00.0 - 0.2 10*3/uL11/13/2024 9:31 PM [facility] CENTERDifferential TypeAUTOMATED HXGAPBVWFQRN84/05/2025 9:[address] [facility] CAMPUSpecimen (Source)Anatomical Location / LateralityCollection Method / VolumeCollection TimeReceived TimeBloodVenous blood / Zjyekgl4211/13/2024 9:20 PM EDT1 9:26 PM EDT Narrative Authorizing ProviderResult TypeResult StatusRoderick Davis MDLAB BLOOD ORDERABLES Final ResultPerforming OrganizationAddressCity/State/ZIP CodePhone Number [facility] [address] [place] [address], * Basic Metabolic Panel (11/13/2024 9:20 PM EDT) Only the most recent of2 resultswithin the time period is included. ComponentValueRef RangeTest MethodAnalysis TimePerformed AtPathologist Signature ZJCEGF529450 - 146 mmol/L1 9:47 PM EDTHE METROHEALTH SYSTEMPOTASSIUM3.73.5 - 5.0 mmol/L1 9:47 PM EDTHE METROHEALTH SYSTEMCHLORIDE10898 - 109 mmol/L1 9:47 PM EDTHE [facility] SYSTEMCARBON CMKRSDR1441 - 32 mmol/L1 9:[address] [facility] CAMPUSANION GAP85 - 15 mmol/L1 9:[address] [facility] CAMPUSBLOOD UREA XYHVAYQG273 - 23 mg/dL11/13/2024 9:47 PM [facility] CENTERCREATININE0.710.40 - 1.00 mg/dL 11/13/2024 9:47 PM [facility] CENTERComment:METHOD TRACEABLE TO IDMS VCFREFBQXVDIUPN4293 - 99 mg/dL11/13/2024 9:47 PM [facility] CENTERCALCIUM8.58.5 - 10.5 mg/dL11/13/2024 9:[address] [facility] CAMPUSEGFR Non-Race Dependent>90>=60 ml/min/1.73sq.m1 9:47 PM [facility] CENTERComment: eGFR not reported due to non-numeric value for Creatinine. Reported eGFR is based on the CKD-EPI 2020 equation that does not use a race coefficient. Specimen (Source)Anatomical Location / LateralityCollection Method / Volume Collection TimeReceived TimeBloodVenous blood / Xfszytc9411/13/2024 9:20 PM EDT 11/13/2024 9:26 PM EDT Narrative Authorizing ProviderResult TypeResult StatusRoderick Davis MDLAB BLOOD ORDERABLES Final ResultPerforming OrganizationAddressCity/State/ZIP CodePhone Number [facility] [address] [place] [address], [place] * PM PERIPHERAL BLOCK, MT TAP BLOCK BILATERAL BY INJECTION(S) (10/20/2024 3:33 PM EDT) Narrative Griselda Romeo APRN-CONDUIT HELPER - 10/20/2024 3:33 PM EDT Griselda Dhillon CairoAUBREYN-CONDUIT HELPER 10/20/2024 3:35 PM Peripheral Block Patient Location: ??OR End Time: ??10/20/2024 9:42 AM Reason for Block: Surgical/Post-op Pain Management ??General Information and Staff: Service Provider: ??Xenia Perdomo MD CONDUIT HELPER: ??Low Cash APRN-CONDUIT HELPER Student: ??MEL Love Placed by: Cirilo Hernandez MD Checklist: Patient Identified, IV Checked, Site Marked, Risks and Benefits Discussed, Surgical Consent, Monitors and Equipment Checked, Pre-op Evaluation and Timeout Performed Fire Risk Assessment Score: 0 Positioning and Technique: Patient Position: ??Supine Prep: Chlorhexidine and Isopropyl Alcohol ?? Monitoring: ??Heart Rate, Continuous Pulse Ox, Blood Pressure and Metal Furniture Polisher Oxygen Source: ??GETA Location: ??Transverse Abdominus Plane-Bilateral Laterality: ??Bilateral Injection Technique: ??Single Shot Number of Attempts: ??1 Placement Technique: Ultrasound Guided ?? Needle: Needle Type: ??Stimuplex Needle Gauge: ??21 G Needle Localization: ??Ultrasound Guidance Assessment: Injection Assessment: ??Negative Aspiration for Heme, Incremental Injection and Local Visualized Surrounding Nerve on Ultrasound ? Authorizing ProviderResult TypeResult StatusLisa Elke Perdomo MDANESTHESIA ORDERABLESEdited Result - Final * Surgical Pathology (10/20/2024 10:14 AM EDT)ComponentValueRef RangeTest Method Analysis TimePerformed AtPathologist SignatureCase ReportSurgical Pathology Report ? Case: [id number] ? Authorizing Provider: ??Opal Ramirez MD ?Collected: ? 10/20/2024 1014 ? Ordering Location: ? [facility] ??Received: ?10/20/2024 1134 ? - Surgery ? Pathologist: ? Vernon Ocampo MD ? Specimen: ?Stomach, STOMACH ? 10/25/2024 11:38 PM [facility] LABORATORYFinal DiagnosisStomach (partial); sleeve gastrectomy: Portion of stomach wall with no significant histopathologic changes. No active inflammation, intestinal metaplasia or dysplasia. No Helicobacter pylori organisms are seen on routine sections. 10/25/2024 11:38 PM [facility] at [address] EDTG[address] DescriptionReceived in formalin labeled LO, stomach is a partial gastric sleeve resection specimen, received closed along the lesser curvature with a line of indwelling merna, 21.5 x 3.5 x 2.8 cm. The serosa is pink-dior smooth and glistening. Upon opening, the lumen is filled with red-brown hemorrhagic bile. The mucosa is pink-dior, smooth and glistening, exhibiting the typical rugal pattern. No discr ete polypoid-like structures or masses are identified. Electrologist sections are submitted in cassettes A through C. (3,,[id number], m6.1) SW10/25/2024 11:38 PM [facility] LABORATORYEmbedded Pstorw9110/25/2024 11:38 PM [facility] LABORATORYSpecimen (Source)Anatomical Location / LateralityCollection Method / VolumeCollection TimeReceived TimeTissueStomach structure / Jrcqyfr4510/20/2024 10:14 AM EDT10/20/2024 11:34 AM EDTComment:Pre-op diagnosis: MORBID OBESITY HYPERTENSION REFLUX Narrative Authorizing ProviderResult TypeResult StatusSaraCHI St. [facility] MDPATHOLOGY/CYTOLOGY ORDERABLESFinal ResultPerforming OrganizationAddressCity/State/ZIP CodePhone Number [facility] [address] [place] [address], * MT AN ELECTIVE ENDOTRACHEAL AIRWAY (10/20/2024 9:45 AM EDT) Narrative Trevor Monroe SRNA - 10/20/2024 9:45 AM EDT MEL oLve 10/20/2024 10:04 AM Airway Patient location during procedure: OR Urgency: Elective Date/Time: 10/20/2024 9:45 AM Airway not difficult IV In Situ: Peripheral General Information and Staff Service Provider: Ciriol Hernandez MD CONDUIT HELPER: Low Cash APRN-CONDUIT HELPER Student: MEL Love Placed by: ??MEL Love Patient Identified, IV Checked, Risks and Benefits Discussed, Surgical Consent, Monitors and Equipment Checked, Pre-op Evaluation and Timeout Performed Fire Risk Assessment Score: 0 Consent for Emergent Airway (if performed for an anesthetic, see related documentation for consents) Risks and benefits: risks, benefits and alternatives were discussed Indications and Patient Condition Sedation level: Deep Preoxygenated: yesPatient position: Supine and Sniffing Mask difficulty assessment: Vent By Mask Indications for airway management: Anesthesia and Airway Protection Complications: No Complicating Factors: No Final Airway Details Final airway type: ETT Endotracheal airway: Cuffed, ETT - Single Lumen, Inflated and Pre-Curved Techniques used for successful ETT Placement: Direct Laryngoscopy and With Stylet Cormack-Lehane Classification: Grade I Endotracheal tube insertion site: Oral No Bite Block Placed Dentition Check Pre: See Pre-Evaluaton documentation Post Intubation Trauma? No Visibility: ??Cords Clear Blade: Alvarez Blade size: #3 Placement verified by: chest auscultation, capnography and symmetrical chest wall movement ETT size: 7.0 mm Cuff volume (mL): 10 Measured from: Teeth Secured at (cm): 21 Number of other approaches attempted: 0 Number of attempts at approach: 1 Authorizing ProviderResult TypeResult StatusLisa N Leanne MDANESTHESIA ORDERABLESFinal Result * Thiamin (Vitamin B1), WB (10/17/2024 10:23 AM EDT)ComponentValueRef RangeTest MethodAnalysis TimePerformed AtPathologist SignatureTHIAMIN (VITAMIN B1), WB TNP10/18/2024 11:02 PM EDBAPTIST HEALTH DOCTORS H[facility] LABORATORIESComment: Thiamin (Vitamin B1), WB was cancelled on 10/18/2024 at 23:02; Specimen was clotted. Test Performed by: [facility] [address] [place] [address] Cloud Engineer: Kevin Wolfe Ph.D.; CLIA# [id number] Specimen (Source)Anatomical Location / LateralityCollection Method / Volume Collection TimeReceived TimeBloodVenous blood / UnknownVenipuncture / Unknown 10/17/2024 10:23 AM EDT10/17/2024 10:23 AM EDT Narrative Authorizing ProviderResult TypeResult StatusOpal LIU BLOOD ORDERABLES Final ResultPerforming OrganizationAddressCity/State/ZIP CodePhone Number [facility] [address] * Parathyroid Hormone, intact (10/17/2024 10:23 AM EDT)ComponentValueRef Range Test MethodAnalysis TimePerformed AtPathologist SignaturePTH ALGDUW0231 - 88 pg/mL10/17/2024 12:42 PM [facility] LABORATORYSpecimen (Source)Anatomical Location / LateralityCollection Method / VolumeCollection TimeReceived TimeBloodVenous blood / UnknownVenipuncture / Nzihnrt4110/17/2024 10:23 AM EDT10/17/2024 10:23 AM EDT Narrative Authorizing ProviderResult TypeResult StatusOpal LIU BLOOD ORDERABLES Final ResultPerforming OrganizationAddressCity/State/ZIP CodePhone Number [facility] [address] [place] [address], * Iron and TIBC (10/17/2024 10:23 AM EDT)ComponentValueRef RangeTest Method Analysis TimePerformed AtPathologist HsxofeozgUEVK7889 - 170 ug/dL10/17/2024 12:42 PM [facility] HWPKWZXFFZSIZFHVQLOBR112166 - 336 mg/dL 10/17/2024 12:42 PM [facility] LABORATORYIRON ULNSRWH123053 - 425 ug/dL10/17/2024 12:42 PM [facility] LABORATORYIRON EIMEDRTFUP4645 - 50 % BQBBYVPZPC11/08/2025 12:42 PM [facility] LABORATORYSpecimen (Source)Anatomical Location / LateralityCollection Method / VolumeCollection TimeReceived TimeBloodVenous blood / Unknown Venipuncture / Qrzgrgb8910/17/2024 10:23 AM EDT10/17/2024 10:23 AM EDT Narrative Authorizing ProviderResult TypeResult StatusSaaugie Ramirez MDLAB BLOOD ORDERABLES Final ResultPerforming OrganizationAddressCity/State/ZIP CodePhone Number [facility] [address] [place] [address], * Vitamin D 25 hydroxy (10/17/2024 10:23 AM EDT)ComponentValueRef RangeTest MethodAnalysis TimePerformed AtPathologist SignatureVITAMIN D 25 HYD TOT32.1 30.0 - 100.0 ng/mL10/17/2024 12:52 PM [facility] Specimen (Source)Anatomical Location / LateralityCollection Method / Volume Collection TimeReceived TimeBloodVenous blood / UnknownVenipuncture / Unknown 10/17/2024 10:23 AM EDT10/17/2024 10:23 AM EDT Narrative [facility] - 10/17/2024 12:52 PM EDT Vitamin D status 25 [place] Vitamin D Deficiency <20 ng/mL Insufficiency ? 20-29 ng/mL Sufficiency ? 30-100 ng/mL Toxicity >100 ng/mL NOTE: A pediatric reference range has not been established by the medical billing clerk of this kit. The [employer] recommends a Vitamin D level of = or >20ng/mL in infants and children. Authorizing ProviderResult TypeResult StatusSaaugie LIU BLOOD ORDERABLES Final ResultPerforming OrganizationAddressCity/State/ZIP CodePhone Number [facility] [address] [place] [address], * APTT (10/17/2024 10:23 AM EDT)ComponentValueRef RangeTest MethodAnalysis Time Performed AtPathologist DcqrlxhclDUHX4849 - 37 sec10/17/2024 12:17 PM EDT [facility] LABORATORYSpecimen (Source)Anatomical Location / LateralityCollection Method / VolumeCollection TimeReceived TimeBloodVenous blood / UnknownVenipuncture / Wqlmhrf3610/17/2024 10:23 AM EDT10/17/2024 10:23 AM EDT Narrative Authorizing ProviderResult TypeResult StatusSageovanna LIU BLOOD ORDERABLES Final ResultPerforming OrganizationAddressCity/State/ZIP CodePhone Number [facility] [address] [place] [address], * Protime-INR (10/17/2024 10:23 AM EDT)ComponentValueRef RangeTest Method Analysis TimePerformed AtPathologist LzpdbypchAFWTJGY20.29.8 - 13.2 sec 10/17/2024 12:17 PM [facility] LABORATORYINR1.00.9 - 1.2 10/17/2024 12:17 PM [facility] LABORATORYSpecimen (Source) Anatomical Location / LateralityCollection Method / VolumeCollection Time Received TimeBloodVenous blood / UnknownVenipuncture / Uomhmkx2110/17/2024 10:23 AM EDT10/17/2024 10:23 AM EDT Narrative Authorizing ProviderResult TypeResult StatusSaaugie LIU BLOOD ORDERABLES Final ResultPerforming OrganizationAddressCity/State/ZIP CodePhone Number [facility] [address] [place] [address], * CBC (10/17/2024 10:23 AM EDT)ComponentValueRef RangeTest MethodAnalysis Time Performed AtPathologist WumghiaybPTJ77.04 - 11 x10E9/L10/17/2024 12:04 PM EDT [facility]ORATORYRBC Count4.663.8 - 5.2 X10E12/L10/17/2024 12:04 PM [facility] NGYWEKNZUDInuknckpqd81.611.7 - 15.5 g/dL 10/17/2024 12:04 PM [facility] YNIFNBCWMNYtcxownrvn59.435 - 47 %10/17/2024 12:04 PM [facility] ZIGISODUNAOKV4426 - 100 fL 10/17/2024 12:04 PM [facility] EIEUITZIRKSTG66.227 - 34 pg 10/17/2024 12:04 PM [facility] DVUVXHFXGRXKNF35.332 - 36 g/dL 10/17/2024 12:04 PM [facility] ZXNYTPXITQBBF40.811.5 - 15 % 10/17/2024 12:04 PM [facility] LABORATORYPlatelet Luwhs762800 - 450 X10E9/L10/17/2024 12:04 PM [facility] LABORATORYMPV8.17 - 12 fL10/17/2024 12:04 PM [facility] LABORATORYSpecimen (Source)Anatomical Location / LateralityCollection Method / VolumeCollection TimeReceived TimeBloodVenous blood / UnknownVenipuncture / Sqwgkda8410/17/2024 10:23 AM EDT10/17/2024 10:23 AM EDT Narrative Authorizing ProviderResult TypeResult StatusOpal LIU BLOOD ORDERABLES Final ResultPerforming OrganizationAddressCity/State/ZIP CodePhone Number [facility] [address] [place] [address], * Hemoglobin A1c (10/17/2024 10:23 AM EDT)ComponentValueRef RangeTest Method Analysis TimePerformed AtPathologist SignatureHEMOGLOBIN A1C5.34.4 - 5.6 % 10/17/2024 12:28 PM [facility] LABORATORYComment: ?ADA Guidelines ?Result ?HgbA1c ? Normal : ? less than 5.7 % ? Prediabetes : ?5.7 % ??to 6.4 % Diabetes : > 6.4 % ?Use with caution in patients with abnormal hemoglobin variants as ??the half-life of red blood cells and in vivo glycation rates are ??affected. EST. AVERAGE EJSZPUQ003ru/dL10/17/2024 12:28 PM [facility] LABORATORYSpecimen (Source)Anatomical Location / LateralityCollection Method / VolumeCollection TimeReceived TimeBloodVenous blood / UnknownVenipuncture / Llmbynj0810/17/2024 10:23 AM EDT10/17/2024 10:23 AM EDT Narrative Authorizing ProviderResult TypeResult StatusOpal LIU BLOOD ORDERABLES Final ResultPerforming OrganizationAddressCity/State/ZIP CodePhone Number [facility] [address] [place] [address], * Ferritin (10/17/2024 10:23 AM EDT)ComponentValueRef RangeTest MethodAnalysis TimePerformed AtPathologist GmeqsuqsrMQDVRWIY9512 - 307 ng/mL10/17/2024 12:46 PM [facility] LABORATORYSpecimen (Source)Anatomical Location / LateralityCollection Method / VolumeCollection TimeReceived TimeBloodVenous blood / UnknownVenipuncture / Ikrhqzh7610/17/2024 10:23 AM EDT10/17/2024 10:23 AM EDT Narrative Authorizing ProviderResult TypeResult StatusOpal LIU BLOOD ORDERABLES Final ResultPerforming OrganizationAddressCity/State/ZIP CodePhone Number [facility] [address] [place] [address], * Vitamin B12 (10/17/2024 10:23 AM EDT)ComponentValueRef RangeTest Method Analysis TimePerformed AtPathologist SignatureVITAMIN [id number] - 914 pg/mL 10/17/2024 12:48 PM [facility] LABORATORYSpecimen (Source) Anatomical Location / LateralityCollection Method / VolumeCollection Time Received TimeBloodVenous blood / UnknownVenipuncture / Qfrxztm6010/17/2024 10:23 AM EDT10/17/2024 10:23 AM EDT Narrative Authorizing ProviderResult TypeResult StatusOpal LIU BLOOD ORDERABLES Final ResultPerforming OrganizationAddressCity/State/ZIP CodePhone Number [facility] [address] [place] [address], * Liver panel (10/17/2024 10:23 AM EDT)ComponentValueRef RangeTest Method Analysis TimePerformed AtPathologist SignatureTOTAL PROTEIN7.76.0 - 8.0 g/dL 10/17/2024 12:42 PM [facility] LABORATORYALBUMIN4.33.2 - 5.3 g/dL10/17/2024 12:42 PM [facility] LABORATORYBILIRUBIN,TOTAL 0.40.3 - 1.2 mg/dL10/17/2024 12:42 PM [facility] ALKALINE UQBOFNCQRPW2867 - 130 U/L10/17/2024 12:42 PM [facility] ETUTJNBKIWVMA98<=41 U/L10/17/2024 12:42 PM [facility] KPUXKJDJYDATQ17<=31 U/L10/17/2024 12:42 PM [facility] LABORATORYBILIRUBIN,DIRECT<0.1<=0.4 mg/dL10/17/2024 12:42 PM [facility] LABORATORYSpecimen (Source)Anatomical Location / Laterality Collection Method / VolumeCollection TimeReceived TimeBloodVenous blood / UnknownVenipuncture / Iegojck2810/17/2024 10:23 AM EDT10/17/2024 10:23 AM EDT Narrative Authorizing ProviderResult TypeResult StatusSaaugie Ramirez MDLAB BLOOD ORDERABLES Final ResultPerforming OrganizationAddressCity/State/ZIP CodePhone Number [facility] [address] [place] [id number], * Lipid profile (10/17/2024 10:23 AM EDT)ComponentValueRef RangeTest Method Analysis TimePerformed AtPathologist VctxnegfvOAOGWSZPSII027262 - 200 mg/dL 10/17/2024 12:42 PM [facility] UAXAMKBDERQBWVEWBSXCYJ64609 - 150 mg/dL10/17/2024 12:42 PM [facility] LABORATORYHDL ULNREZZNYZT77>39 mg/dL10/17/2024 12:42 PM [facility] LABORATORYComment: HDL <40 mg/dL - High Risk HDL > or = 40mg/dL- Desirable HDL >60 mg/dL - Negative Risk LDL (CALC)90<130 mg/dL10/17/2024 12:42 PM [facility] Comment: LDL <100 mg/dL - Desirable LDL >160 mg/dL - High Risk CHOLESTEROL:HDL3.91.0 - 5. 12:42 PM [facility] LABORATORYVERY LOW BRABAPFSZJH984 - 30 mg/dL10/17/2024 12:42 PM [facility] LABORATORYSpecimen (Source)Anatomical Location / Laterality Collection Method / VolumeCollection TimeReceived TimeBloodVenous blood / UnknownVenipuncture / Dikpsit4110/17/2024 10:23 AM EDT10/17/2024 10:23 AM EDT Narrative Authorizing ProviderResult TypeResult StatusOpal Ramirez MDLAB BLOOD ORDERABLES Final ResultPerforming OrganizationAddressCity/State/ZIP CodePhone Number [facility] [address] [place] [address], * ECG 12 lead (10/17/2024 10:07 AM EDT)Specimen (Source)Anatomical Location / LateralityCollection Method / VolumeCollection TimeReceived Time10/17/2024 10:07 AM EDT Narrative [facility] - 10/17/2024 2:50 PM EDT Authorizing ProviderResult TypeResult StatusOpal Ramirez MDECG ORDERABLESFinal ResultPerforming OrganizationAddressCity/State/ZIP CodePhone Number [facility] from Last 3 Months Insurance Care Teams Team MemberRelationshipSpecialtyStart DateEnd Jorge L Rowell MD [facility]04/30/17
--- OUTSIDE RECORDS SUMMARY | 2025-01-02 11:33 | XMS_ITS | CCD ---
[facility] Organization [facility] Providers Care Registration Officer Name Role Phone STEPANIC, ARIES C [...] Unavailable HOY ., DR FELDMAN Consulting Unavailable ETOWAH, DR MAURICIO Fraser Consulting Unavailable Unavailable Primary Care Provider UnavailFrancia Izaguirre MD Primary Care Provider [phone] Francia Rodriguez MD Primary Care Provider [phone] Quoc ROYAL Attending Unavailable Jennifer Francia Referring Unavailable Francia Rodriguez MD Primary Care Provider [phone] JENNIFER FRANCIA M Primary Care Unavailable HOY, FRANCIA M Referring Unavailable DARRON ROSARIO Attending Unavailable HOY, FRANCIA M Primary Care Unavailable HOY, FRANCIA M Primary Care Unavailable HOY, FRANCIA M Referring Unavailable HOY, FRANCIA M Primary Care Unavailable HOY, FRANCIA M Referring Unavailable BROWNOPAL Attending Unavailable HOY, FRANCIA M Referring Unavailable HOY, FRANCIA M Primary Care Unavailable HOY, FRANCIA M Referring Unavailable HOY, FRANCIA M Primary Care Unavailable OPAL BROWN Attending Unavailable HOY, FRANCIA M Referring Unavailable HOY, FRANCIA M Primary Care Unavailable BROWN, OPAL N Attending Unavailable HOY, FRANCIA M Referring Unavailable HOY, FRANCIA M Primary Care Unavailable SURESH SOW Attending Unavailable HOY, FRANCIA M Referring Unavailable HOY, FRANCIA M Primary Care Unavailable SURESH SOW Attending Unavailable HOY, FRANCIA M Referring Unavailable HOY, FRANCIA M Primary Care Unavailable SURESH SOW Attending Unavailable HOY, FRANCIA M Referring Unavailable HOY, FRANCIA M Primary Care Unavailable SURESH SOW Attending Unavailable HOY, FRANCIA M Referring Unavailable HOY, FRANCIA M Primary Care Unavailable SURSEH SOW Attending Unavailable HOY, FRANCIA M Referring Unavailable HOY, FRANCIA M Primary Care Unavailable SURESH SOW Attending Unavailable HOY, FRANCIA M Referring Unavailable HOY, FRANCIA M Primary Care Unavailable SURESH SOW Attending Unavailable HOY, FRANCIA M Referring Unavailable HOY, FRANCIA M Primary Care Unavailable SURESH OSW Attending Unavailable HOY, FRANCIA M Referring Unavailable HOY, FRANCIA M Primary Care Unavailable BROWN, OPAL N Referring Unavailable HOY, FRANCIA M Primary Care Unavailable HOY, FRANCIA M Referring Unavailable HOY, FRANCIA M Primary Care Unavailable BROWN, OPAL N Admitting Unavailable BROWN, OPAL N Attending Unavailable HOY, FRANCIA M Primary Care Unavailable SURESH SOW Attending Unavailable HOY, FRANCIA M Referring Unavailable HOY, FRANCIA M Primary Care Unavailable BROWN, OPAL N Referring Unavailable HOY, FRANCIA M Primary Care Unavailable BROWN, OPAL N Referring Unavailable HOY, FRANCIA M Primary Care Unavailable BROWN, OPAL N Referring Unavailable HOY, FRANCIA M Primary Care Unavailable HOY, FRANCIA M Referring Unavailable HOY, FRANCIA M Primary Care Unavailable BROWN, OPAL N Referring Unavailable HOY, FRANCIA M Primary Care Unavailable HOY, FRANCIA M Primary Care Unavailable DAVIDSON MORALES Attending Unavailable Allergies Allergy ClassificationReported Allergen(s)Allergy TypeDate of OnsetReaction(s) Facility (1 source)acetaminophen / oxyCODONE; Translations: [Percocet 5325]Drug Allergy [facility] Repository (3 sources)HYDROmorphone; Translations: [Dilaudid][facility] (1 source)egg extractDrug Hvnbltg61-87-3412Ccx[facility] (20 sources)HYDROmorphone; Translations: [HYDROMORPHONE]Drug Uzqxvcd52-83-0739 [facility] Medications Current Medications MedicationDrug Class(es)DatesSig (Normalized)Sig (Original)acetaminophen 500 mg oral tablet (7 sources)Start: 10-20-2024 End: 26-23-2499ggdg 2 tablets by mouth every six hours as needed for pain acetaminophen (TYLENOL EXTRA STRENGTH) 500 mg tablet Indications: Postoperative pain , Status post laparoscopic sleeve gastrectomy Take 2 tablets (1,000 mg total) by mouth every 6 (six) hours as needed for pain (Postop) for up to 7 days. 30 tablet 10/20/2024 10/27/2024 Activebaclofen 20 mg oral tablet (7 sources)gamma-Aminobutyric Acid-ergic AgonistStart: 46-33-5267nxlsntch (LIORESAL) 20 mg tablet Take by mouth daily as needed. 10/06/2024 Active cyclobenzaprine hydrochloride 5 mg oral tablet (3 sources)Muscle RelaxantStart: 10-20-2024 End: 37-72-8449eumw 2 tablets by mouth three times daily as needed for pain cyclobenzaprine (FLEXERIL) 5 mg tablet Take 2 tablets (10 mg total) by mouth 3 (three) times a day as needed for muscle spasms (postop pain) for up to 7 days. 30 tablet 10/20/2024 10/28/2024 Activedocusate sodium 100 mg oral capsule (3 sources)Start: 45-78-5591tyhb 1 capsule by mouth twice daily as needed for constipationdocusate sodium (COLACE) 100 mg capsule Indications: History of sleeve gastrectomy , Malnutrition following gastrointestinal surgery , Postsurgical malabsorption , Constipation, unspecified constipation type Take 1 capsule (100 mg total) by mouth 2 (two) times a day as needed for constipation. 60 capsule 11/01/2024 ActiveStart: 09-02-2024 End: 97-42-6930ofub 1 capsule by mouth in the morning, then take 1 capsule by mouth at bedtimedocusate sodium (COLACE) 100 mg capsule Take 1 capsule (100 mg total) by mouth in the morning and 1capsule (100 mg total) before bedtime. Do all this for 14 days. 28 capsule 09/02/2024 09/16/2024 Activeescitalopram 10 mg oral tablet (7 sources)Serotonin Reuptake Inhibitortake 1 tablet by mouth in the morning escitalopram (LEXAPRO) 10 mg tablet Take 1 tablet (10 mg total) by mouth in the morning. Activefurosemide 20 mg oral tablet (18 sources)Loop DiureticStart: 54-19-1760bigz 1 tablet by mouth once daily as neededfurosemide (LASIX) 20 mg tablet Take 1 tablet (20 mg total) by mouth daily as needed. 08/15/2024 ActiveStart: 11-24-2023 End: 85-67-1987vslj 1 tablet by mouth once daily as neededfurosemide (LASIX) 40 mg tablet Indications: edema Take 1 tablet (40 mg total) by mouth daily as nee ded Indications: visible water retention. 11/24/2023 10/17/2024 Discontinued (Dose adjustment)gabapentin 100 mg oral capsule (3 sources)Anti-epileptic AgentStart: 10-20-2024 End: 79-25-6873gkij 1 capsule by mouth three times dailygabapentin (NEURONTIN) 100 mg capsule Indications: Postoperative pain , Status post laparoscopic sleeve gastrectomy Take 1 capsule (100 mg total) by mouth 3 (three) times a day for 10 days. 30 capsule 10/20/2024 10/30/2024 Activehyoscyamine sulfate 0.125 mg sublingual tablet (6 sources)Start: 10-20-2024 End: 74-37-9686jocf 1 tablet by mouth every six hours as needed for muscle spasmshyoscyamine (LEVSIN) 0.125 mg SL tablet Take 1 tablet (125 mcg total) by mouth every 6 (six) hours as needed for cramping (Postprandial postoperative abdominal cramp or spasm) for up to 14 days. 30 tablet 10/20/2024 11/03/2024 Activetake 1-2 tablets by mouth every four hours as needed for painhyoscyamine (LEVSIN) 0.125 mg SL tablet DISSOLVE 1 TO 2 TABLETS IN MOUTH EVERY 4 HOURS NEEDED FOR ABDOMINAL PAIN. Activeibuprofen 600 mg oral tablet (4 sources)Nonsteroidal Anti-inflammatory DrugStart: 10-05-2022 End: 41-34-4282clnd 1 tablet by mouth every six hours as needed for pain ibuprofen (MOTRIN) 600 mg tablet Take 1 tablet (600 mg total) by mouth every 6 (six) hours as needed for pain. 30 tablet 10/05/2022 11/27/2023 Discontinued (Therapy completed)Start: 05-29-2021 End: 94-80-2341npad 1 tablet by mouth every eight hours as needed for pain ibuprofen (ADVIL,MOTRIN) 800 mg tablet Take 1 tablet (800 mg total) by mouth every 8 (eight) hours as needed for pain. 90 tablet 05/29/2021 11/27/2023 Discontinued (Therapy completed) End: 23-73-9260zvhm 4 tablets by mouth every six hours as needed for pain ibuprofen (ADVIL;MOTRIN) 200 MG tablet Take 4 tablets by mouth every 6 hours as needed for Pain 07/17/2024 Discontinued (LIST CLEANUP) End: 30-51-3939dogz 2 tablets by mouth every six hours as needed for pain ibuprofen (ADVIL,MOTRIN) 200 mg tablet Take 2 tablets (400 mg total) by mouth every 6 (six) hours as needed for pain. 11/27/2023 Discontinued (Therapy completed)metoprolol tartrate 50 mg oral tablet (20 sources)beta-Adrenergic Blockertake 1 tablet by mouth in the morning, then take 1 tablet by mouth at bedtimemetoprolol tartrate (LOPRESSOR) 50 mg tablet Take 1 tablet (50 mg total) by mouth in the morning and 1 tablet (50 mg total) before bedtime. Activetake 1 tablet by mouth once dailymetoprolol succinate (TOPROL XL) 50 MG extended release tablet Take 1 tablet by mouth daily Active naproxen 500 mg oral tablet (4 sources)Nonsteroidal Anti-inflammatory DrugStart: 33-40-1075mzax 1 tablet by mouth twice daily as needed for painnaproxen (NAPROSYN) 500 MG tablet Take 1 tablet by mouth 2 times daily as needed for Pain 20 tablet1 07/17/2024 Active ondansetron 4 mg oral tablet (20 sources)Serotonin-3 Receptor AntagonistStart: 00-43-4655kosq 1 tablet by mouth three times daily as needed for nauseaondansetron (ZOFRAN) 4 MG tablet Take 1 tablet by mouth 3 times daily as needed for Nausea or Vomiting 8 tablet 07/17/2024 ActiveStart: 07-17-2024 End: mg, IntraVENous, ONCE, 1 dose, On 07/17/24 at 0800Start: 10-27-2022 End: 48-81-9452ybhszrqodyi (ZOFRAN) injection 4 mgStart: 65-89-9084dwih 1 tablet by mouth every eight hours as needed for nauseaondansetron (ZOFRAN) 4 mg tablet Indications: Postoperative nausea Take 1 tablet (4 mg total) by mouth every 8 (eight) hours as needed for nausea or vomiting. 30 tablet 06/24/2021 Active oxaprozin 600 mg oral tablet (7 sources)Nonsteroidal Anti-inflammatory DrugStart: 65-45-3957pavy 1 tablet by mouth in the morningoxaprozin (DAYPRO) 600 mg tablet Take 1 tablet (600 mg total) by mouth in the morning. 10/06/2024 Activepantoprazole 40 mg delayed release oral tablet (17 sources)Proton Pump InhibitorStart: 11-02-2023 End: 71-65-9509zwgv 1 tablet by mouth once daily before breakfastpantoprazole (PROTONIX) 40 mg EC tablet Take 1 tablet (40 mg total) by mouth every morning before breakfast for 90 days. 90 tablet 10/20/2024 01/18/2025 Active microencapsulated potassium chloride 20 meq extended release oral tablet (17 sources)Start: 07-09-6678uuvf 1 tablet by mouth once daily as needed, then take 1 tablet by mouth twice daily at mealtime asneededKLOR-CON M20 20 mEq CR tablet Take 1 tablet (20 mEq total) by mouth daily as needed. TAKE 1 BY MOUTH TWICE DAILY WITH FOOD 11/13/2023 Activepromethazine hydrochloride 25 mg oral tablet (13 sources)PhenothiazineStart: 10-20-2024 End: 71-56-6994tycq 1 tablet by mouth every eight hours as needed for nausea and vomitingpromethazine (PHENERGAN) 25 mg tablet Take 1 tablet (25 mg total) by mouth every 8 (eight) hours asneeded for nausea or vomiting (postop) for up to 7 days. 21 tablet 10/20/2024 10/27/2024 ActiveStart: 39-40-4888mtit 1 tablet by mouth once daily as needed for nauseapromethazine (PHENERGAN) 25 mg tablet Take 1 tablet (25 mg total) by mouth daily as needed for nausea. 10/27/2023 Active rimegepant 75 mg disintegrating oral tablet (17 sources)rimegepant (NURTEC ODT) 75 mg tablet,disintegrating Dissolve 1 tablet (75 mg total) on tongue once as needed. Activerimegepant (NURTEC ODT) 75 mg tablet,disintegrating Dissolve on tongue as needed. ActiveRimegepant Sulfate (NURTEC PO) (5 sources)Rimegepant Sulfate (NURTEC PO) Take by mouth ActiveRimegepant Sulfate (NURTEC PO) Take by mouth 0 Amfbro95 hr scopolamine 0.0139 mg/hr transdermal system (1 source)AnticholinergicStart: 09-02-2024 End: 11-69-0693hzcag 1 dose transdermal route once dailyscopolamine (TRANSDERM- SCOP) 1 mg/[address] 1 patch on the skin every third day for [address] behind your ear the night before your surgery 1 patch 09/02/2024 09/03/2024 ActivetiZANidine 4 mg oral tablet (8 sources)Central alpha-2 Adrenergic AgonistStart: 05-06-2021 End: 47-59-3125jolo 1 tablet by mouth every six hours as neededtiZANidine (ZANAFLEX) 4 mg tablet Take 1 tablet (4 mg total) by mouth every 6 (six) hours as needed. 05/06/2021 11/27/2023 Discontinued (Therapy completed)take 2 tablets by mouth once daily at bedtime as neededtiZANidine (ZANAFLEX) 4 mg tablet TAKE 2 TABLETS BY MOUTH ONCE DAILY AT BEDTIME NEEDED Activetriamcinolone acetonide 1 mg/ml topical cream (17 sources)CorticosteroidStart: 90-93-9063nengvklycphtz (KENALOG) 0.1 % cream Apply 1 Application topically as needed. 04/09/2021 Active Completed/Discontinued Medications MedicationDrug Class(es)DatesSig (Normalized)Sig (Original)1 ml erenumab-aooe 70 mg/ml auto-injector (11 sources) End: 28-33-2903vmcghu 140 mg by subcutaneous injection every 30 dayserenumab- aooe 70 mg/mL auto-injector Inject 140 mg under the skin every 30 (thirty) days. 10/17/2024 Discontinued (Therapy completed)iopamidol (ISOVUE-370) 76 % injection 75 mL (2 sources)Start: 07-17-2024 End: 73-10-1974qzbd 1 dose intravenously once75 mL, IntraVENous, IMG ONCE PRN, 1 dose, Starting on 07/17/24 at 0752, Until 07/17/24 at 0822,OtherStart: 10-27-2022 End: 35-34-3395lmnmzkwif (ISOVUE-370) 76 % injection 75 mL1 ml ketorolac tromethamine 15 mg/ml cartridge (2 sources)Nonsteroidal Anti-inflammatory Drug, Cyclooxygenase InhibitorStart: 07-17-2024 End: 48-27-374860 mg, IntraVENous, ONCE, 1 dose, On 07/17/24 at 0800, Do not administer for more than 5 days.Start: 10-27-2022 End: 90-73-0605sdkpwyrhm (TORADOL) injection 15 mgmeloxicam 15 mg oral tablet (11 sources)Nonsteroidal Anti-inflammatory DrugStart: 11-02-2023 End: 49-39-0821eogu 1 tablet by mouth in the morningmeloxicam (MOBIC) 15 mg tablet Take 1 tablet (15 mg total) by mouth in the morning. 11/02/202310/17 Discontinued (Therapy completed)50 ml sodium chloride 9 mg/ml injection (2 sources)Start: 07-17-2024 End: ,000 mL, IntraVENous, at 1,935.5 mL/hr, Administer over 31 Minutes, ONCE, On 07/17/24 at 0800, For 1 doseStart: 10-27-2022 End: 83-09-1450rnmwmn chloride 0.9 % bolus 1,000 mL Problems Active Problems Problem ClassificationProblemDateDocumented DateEpisodic/ChronicAbdominal pain (5 sources)Unspecified abdominal pain; Translations: [Left flank pain]Onset: 083507-82-3597YuasmhhfWhenh bronchitis (4 sources)Acute bronchitis; Translations: [Acute bronchitis, unspecified]Onset: 27-12-138268762105-81-9826YztspojfOpknshn dysrhythmias (4 sources)Palpitations; Translations: [PALPITATIONS]Onset: 55-70-8549Lqaprlka Complications of surgical procedures or medical care (5 sources)Post-gastrointestinal tract surgery malnutrition; Translations: [Postsurgical malabsorption, not elsewhere classified]Onset: 10-28-2024 37-84-4565LvqllfkRjfupzwspf disorders (3 sources)Gastroesophageal reflux disease; Translations: [Gastro-esophageal reflux disease without esophagitis]Onset: 361714-45-3879ElqamnsExiwoorer hypertension (3 sources)Essential (primary) hypertension; Translations: [Hypertensive disorder]Onset: 03-54-0514OxaipjxAqvihkji; including migraine (1 source)Migraine without aura, not intractable, without status migrainosus; Translations: [MIGRAINE W/O AURA NOT INTRCT W/O SE]Onset: 23-61-4800Gquqtdv Nausea and vomiting (7 sources)Nausea with vomiting, unspecified; Translations: [Nausea]Onset: 78-04-7225KcpvmqisPrnvclobmhchz gastroenteritis (4 sources)Noninfective gastroenteritis and colitis, unspecified; Translations: [NONINFECTIVE GE AND COLITIS UNS]Onset: 88-55-4384MkfjntioHahuvbcqcgfbrv (1 source)Osteoarthritis; Translations: [Unspecified osteoarthritis, unspecified site]00-42-8312CeqrcodChvey diseases of kidney and ureters (1 source)Hydroureteronephrosis ; Translations: [Unspecified hydronephrosis] 76-96-8483RqfnirtxInurn diseases of kidney and ureters (1 source)Unspecified hydronephrosis; Translations: [Unspecified hydronephrosis] Onset: 48-30-7723ZkbyjxpuTsioq gastrointestinal disorders (1 source)Bariatric surgery status; Translations: [Bariatric surgery status] Onset: 42-37-5091UiemsglrLbvuy gastrointestinal disorders (1 source)Constipation; Translations: [Constipation, unspecified]11-01-2024 EpisodicOther nervous system disorders (1 source)Other acute postprocedural pain; Translations: [Other acute postprocedural pain]Onset: 11-72-2098YwaziwacFxntc non-traumatic joint disorders (1 source)Pain in unspecified knee; Translations: [Pain in joint, lower leg] 40-03-6726RpkxhmusUhuhl nutritional; endocrine; and metabolic disorders (11 sources)Morbid obesity; Translations: [Morbid (severe) obesity due to excess calories]Onset: 907685-36-0056AfgaaguHriid nutritional; endocrine; and metabolic disorders (6 sources)Obese class II; Translations: [Obesity, Class II, BMI 35-39.9] 67-73-3569IrjnhihOwguh nutritional; endocrine; and metabolic disorders (2 sources)Body mass index 40+ - severely obese; Translations: [Obesity, Class III, BMI 40-49.9 (morbid obesity) ([facility])]50-28-8602OwwgvqhJsquz nutritional; endocrine; and metabolic disorders (7 sources)Obesity; Translations: [Obesity, unspecified]17-02-2968UtahwahTnyvo nutritional; endocrine; and metabolic disorders (1 source)Morbid (severe) obesity due to excess calories; Translations: [Morbid (severe) obesity due to excess calories]Onset: 89-48-2189GdviyoyYcippspm codes; unclassified (1 source)Procedure not done; Translations: [Procedure and treatment not carried out, unspecified reason]57-12-9426SdaawbiqPmikmnyv codes; unclassified (1 source)Edema; Translations: [Edema, unspecified]09-61-4962QrrmbrueTvlezzhi codes; unclassified (3 sources)History of sleeve gastrectomy; Translations: [Acquired absence of stomach [part of]]71-63-4892TeuzdunmBfyfylpo codes; unclassified (1 source)Procedure and treatment not carried out, unspecified reason; Translations: [Procedure and treatmentnot carried out, unspecified reason]Onset: 50-26-8589EfgwshruYjiswvmx codes; unclassified (1 source)Acquired absence of stomach [part of]; Translations: [Acquired absence of stomach (part of)]Onset: 50-47-5209JpmtrlfcQjvtvooo codes; unclassified (1 source)Other specified postprocedural states; Translations: [Other specified postprocedural states]Onset: 01-67-9360RvcoxezaNzmptxhpjse; intervertebral disc disorders; other back problems (1 source)Backache; Translations: [Dorsalgia, unspecified]44-83-1790Vxtqbedd Unclassified (1 source)POST-OP VISITOnset: 09-44-8517Bdvatmqpjzcg (1 source)Obesity, class 3; Translations: [Obesity, class 3]Onset: 09-02-2024 Unclassified (2 sources)Obesity, class 2; Translations: [Obesity, class 2]Onset: 11-27-2023 Unclassified (1 source)New PatientOnset: 72-35-4843Xjyqecxxaejb (1 source)Nutrition CounselingOnset: 12-11-2023 Past or Other Problems Problem ClassificationProblemDateDocumented DateEpisodic/Chronic Administrative/social admission (10 sources)Patient encounter status; Translations: [Dietary counseling and surveillance]Onset: 989935-91-9591StacyjohZasp disorders (17 sources)Mood disordersOnset: 562504-27-2222Cfywajhbsdaa breast conditions (20 sources)Cyst of right breast; Translations: [Solitary cyst of right breast] Onset: 202584-43-7273NghojhmmKuzgv and unspecified benign neoplasm (17 sources)Pituitary microadenoma; Translations: [Benign neoplasm of pituitary gland]Onset: 150458-64-1337DfgmysloBapey connective tissue disease (17 sources)Bicipital tendinitis, right shoulder; Translations: [Bicipital tenosynovitis]Onset: 357991-56-6123HqejmmnfQflzk screening for suspected conditions (not mental disorders or infectious disease) (2 sources)Encounter for screening mammogram for malignant neoplasm of breast; Translations: [Other abnormal and inconclusive findings on diagnostic imaging of breast]Onset: 75-42-2005AofomiyiFtwoacrm codes; unclassified (17 sources)Family history of breast cancer; Translations: [Family history of malignant neoplasm of breast]Onset: 343558-80-2842FeqtpprhNpyctux and strains (20 sources)Strain of muscle(s) and tendon(s) of the rotator cuff of right shoulder, initial encounter; Translations: [Rotator cuff (capsule) sprain]Onset: 27-72-360798115438-92-1666Mqbfedgg Results Test NameValueInterpretationReference RangeFacilityBASIC METABOLIC PANELon 30-62-0005Lptte gap [Moles/Vol]8 mmol/LNormal5-15[facility] [place] Comment on above:Performed By: #### ELLEN, 3016-3, 2498-4, LIVR, 2731-8, 2132-9, 06685-1, HA1C #### [facility] ([id number]) [address], [address] [place], [place] [address]Tagouqk [Mass/Vol]8.5 mg/dLNormal8.5-10.5PMercy Health Lorain HospitalComment on above:Performed By: #### ELLEN, 3016-3, 2498-4, LIVR, 2731-8, 2-9, 57321-3, HA1C #### [facility] ([id number]) [address], [address] [place], [place] [address]Itoeybmg [Moles/Vol]108 mmol/XXhdqqh55-175TafFprevqSelect [facility], BeachwoodComment on above:Performed By: #### ELLEN, 3016-3, 2498-4, LIVR, 2731-8, 2-9, 83660-9, HA1C #### [facility] ([id number]) [address], [address] [place], [place] [address]FL8 [Moles/Vol]22 mmol/MLtczcc21-68RksKbihacMercy Health [facility] Hospital Comment on above:Performed By: #### CBCA, 3016-3, 2498-4, LIVR, 2731-8, 2132-9, 07943-6, HA1C #### [facility] ([id number]) [address], [address] [place], [place] [address]Pfhafeurtx [Mass/Vol]0.71 mg/dLNormal0.40-1.00[facility], BeachwoodComment on above:Result Comment: METHOD TRACEABLE TO IDMS STANDARD Performed By: #### ELLEN, 3016-3, 2498-4, LIVR, 2731-8, 2132-9, 16905-7, HA1C #### [facility] ([id number]) [address], [address] [place], [place] [address]MRTL (CKD-EPI) NON-RACE DEPENDENT>^90Normal>=60ProGraham Regional Medical CenterComment on above:Result Comment: eGFR not reported due to non-numeric value for Creatinine. Reported eGFR is based on the CKD-EPI 2020 equation that does not use a race coefficient.Performed By: #### CBCA, 3016-3, 2498-4, LIVR, 1- 8, 2131-9, 49945-8, HA1C #### [facility] ([id number]) [address], [address] [place], [place] [address]Zcrmfip [Mass/Vol]97 mg/wFQeqikd75-68LysPtksyySelect [facility] [place] Comment on above:Performed By: #### CBCA, 3016-3, 2498-4, LIVR, 2731-8, 2131-9, 28042-2, HA1C #### [facility] ([id number]) [address], [address] [place], [place] [address]Isqcdpvgy [Moles/Vol]3.7 mmol/LNormal3.5-5.0[facility], BeachwoodComment on above:Performed By: #### CBCA, 3016-3, 2498-4, LIVR, 2731-8, 2131-9, 80032-8, HA1C #### [facility] ([id number]) [address], [address] [place], [place] [address]Wxkcpj [Moles/Vol]138 mmol/SDfboyq237-316OvtNdkjqt [facility] HospitalComment on above:Performed By: #### CBCA, 3016-3, 2498-4, LIVR, 2731-8, 2132-9, 57936-5, HA1C #### [facility] ([id number]) [address] [place], [place] [address]Umaf nitrogen [Mass/Vol]11 mg/dLNormal5-23[facility], BeachwoodComment on above:Performed By: #### CBCA, 3016-3, 2498-4, LIVR, 2731-8, 2-9, 70493-1, HA1C #### [facility] ([id number]) [address] [address]WJO WITH AUTO DIFFERENTIALon 91-33-2736NGTAKOGJQ ABSOLUTE COUNT (10*3/UL) BY AUTOMATED COUNT0.0 10*3/uLNormal0.0-0.2PBarberton Citizens Hospital on above:Performed By: #### CBCA, 3016-3, 2498-4, LIVR, 2730-8, 2131-9, 16131-5, HA1C #### [facility] ([id number]) [address] [address]KKGIDVLYG RELATIVE PERCENT BY AUTOMATED COUNT0.2 %Normal ProMPioneers Memorial HospitalComment on above:Performed By: #### CBCA, 3016-3, 2498-4, LIVR, 2730-8, 2131-9, 70349-9, HA1C #### [facility] ([id number]) [address] [address]QKQCGBIPPRC DIFFERENTIAL TYPEAUTOMATED DIFFERENTIALNormal [facility], BeachwoodComment on above:Performed By: #### CBCA, 3016-3, 2498-4, LIVR, 2731-8, 2-9, 57656-6, HA1C #### [facility] ([id number]) [address] [address]Ysjrraenigh (Bld) [#/Vol]0.2 10*3/uLNormal0.0-0.4[facility], BeachwoodComment on above:Performed By: #### CBCA, 3016-3, 2498-4, LIVR, 2731-8, 2132-9, 79712-3, HA1C #### [facility] [facility] ([id number]) [address] [address]OSZTEPHXAQK RELATIVE PERCENT BY AUTOMATED COUNT2.1 %Normal [facility], BeachwoodComment on above:Performed By: #### CBCA, 3016-3, 2498-4, LIVR, 2731-8, 2131-9, 72190-7, HA1C #### [facility] ([id number]) [address] [address]Wbxnusqcltl distribution width (RBC) [Ratio]14.4 %Hbxlnd05.5-15 [facility], BeachwoodComment on above:Performed By: #### CBCA, 3016-3, 2498-4, LIVR, 1-8, 2131-9, 23161-3, HA1C #### [facility] ([id number]) [address] [address]Fdionbqqow (Bld) [Volume fraction]41.3 %Ynacat62-08LywKwzhlq [facility] - Harbor HospitalComment on above:Performed By: #### CBCA, 3016-3, 2498-4, LIVR, 2731-8, 2-9, 29130-8, HA1C #### [facility] ([id number]) [address] [address]Dkuuvviruv (Bld) [Mass/Vol]13.9 g/mOYpwcrn52.7-15.5POur Lady of Lourdes Regional Medical Centerica [facility] - Harbor HospitalComment on above:Performed By: #### CBCA, 3016-3, 2498-4, LIVR, 2731-8, 2-9, 04428-4, HA1C #### [facility] ([id number]) [address] [address]KBCOUSLALHS ABSOLUTE COUNT (10*3/UL) BY AUTOMATED COUNT2.4 10*3/uLNormal1.0-3.5PMercy Health Lorain HospitalComment on above:Performed By: #### CBCA, 3016-3, 2498-4, LIVR, 2731-8, 2132-9, 96614-2, HA1C #### [facility] ([id number]) [address], [address] [place], [place] [address]IKJJXDTGYQN RELATIVE PERCENT BY AUTOMATED COUNT32.9 %Normal [facility], BeachwoodComment on above:Performed By: #### CBCA, 3016-3, 2498-4, LIVR, 1-8, 2131-9, 15973-9, HA1C #### [facility] ([id number]) [address], [address] [place], [place] [address]ANS (RBC) [Entitic mass]30.7 tiItodnu48-63RgiVtrnwqGraham Regional Medical CenterComment on above:Performed By: #### CBCA, 3016-3, 2498-4, LIVR, 2731-8, 2131-9, 20652-0, HA1C #### [facility] ([id number]) [address], [address] [place], [place] [address]NRGV (RBC) [Mass/Vol]33.7 g/jUNvutvw17-87DyaSsaifzGraham Regional Medical CenterComment on above:Performed By: #### CBCA, 3016-3, 2498-4, LIVR, 2731-8, 2131-9, 69922-7, HA1C #### [facility] ([id number]) [address], [address] [place], [place] [address]MIB (RBC) [Entitic vol]91 iIWzmmax92-437WvsGoykiu [facility]remont HospitalComment on above:Performed By: #### CBCA, 3016-3, 2498-4, LIVR, 2731-8, 2132-9, 66593-9, HA1C #### [facility] ([id number]) [address] [place], [place] [address]KKPLQVZCC ABSOLUTE COUNT (10*3/UL) BY AUTOMATED COUNT0.5 10*3/uL Normal0.0-0.9[facility], BeachwoodComment on above:Performed By: #### CBCA, 3016-3, 2498-4, LIVR, 1-8, 2131-9, 87169-9, HA1C #### [facility] ([id number]) [address], [address] [place], [place] [address]OROBSZNON RELATIVE PERCENT BY AUTOMATED COUNT6.6 %Normal [facility], BeachwoodComment on above:Performed By: #### CBCA, 3016-3, 2498-4, LIVR, 2730-8, 2131-9, 23866-0, HA1C #### [facility] ([id number]) [address], [address] [place], [place] [address]AKLJVOILLCZ ABSOLUTE COUNT BY AUTOMATED COUNT4.2 10*3/uLNormal 1.5-6.6ProGraham Regional Medical CenterComment on above:Performed By: #### CBCA, 3016- 3, 2498-4, LIVR, 2730-8, 2131-9, 89178-9, HA1C #### [facility] ([id number]) [address], [address] [place], [place] [address]XDLSNORESNO RELATIVE PERCENT BY AUTOMATED COUNT58.2 %Normal [facility], BeachwoodComment on above:Performed By: #### CBCA, 3016-3, 2498-4, LIVR, 1-8, 2131-9, 37112-7, HA1C #### [facility] ([id number]) [address], [address] [place] [address]Bivvjbzh mean volume (Bld) [Entitic vol]8.4 fLNormal7-12 [facility], BeachwoodComment on above:Performed By: #### CBCA, 3016-3, 2498-4, LIVR, 2731-8, 2132-9, 79390-9, HA1C #### [facility] ([id number]) [address], [address] [place] [address]Khvxyipsy (Bld) [#/Vol]216 10*3/oKNhhhlv859-194TerNyodsi [facility]ont HospitalComment on above:Performed By: #### CBCA, 3016-3, 2498-4, LIVR, 2731-8, 2132-9, 90306-6, HA1C #### [facility] ([id number]) [address], [address] [place], [place] [address]FBC COUNT4.53 X10E12/LNormal3.8-5.2PMercy Health Lorain Hospital Comment on above:Performed By: #### CBCA, 3016-3, 2498-4, LIVR, 2731-8, 2132-9, 59289-0, HA1C #### [facility] ([id number]) [address], [address] [place], [place] [address]PWJ (Bld) [#/Vol]7.2 10*3/uLNormal4-11[facility] [place] Comment on above:Performed By: #### CBCA, 3016-3, 2498-4, LIVR, 2731-8, 2132-9, 72817-3, HA1C #### [facility] ([id number]) [address], [address] [place] [address]IBDLjw 82-83-0154hHMJ Coag (PPP) [Time]35 [facility]en[facility] Private HospitalaPTT Coag (Bld) [Time]35 hFbsowh58-00GihSfncivBarberton Citizens HospitalComment on above:Performed By: #### PTT #### [facility] ([facility]) [address] [place] [address] VIRBASIC METABOLIC PANELon 16-20-4211Abjds gap [Moles/Vol]10 mmol/LNormal5-15ProCleveland Clinic [facility] HospitalComment on above:Performed By: #### BMP #### [facility] ([facility]) [address] [place] [address] VIRCalcium [Mass/Vol]9.1 mg/dLNormal8.5-10.5ProMedFairfield Medical Center HospitalComment on above:Performed By: #### BMP #### [facility] ([facility]) [address] [place] [address] VIRChloride [Moles/Vol]102 mmol/HFjxfkx51-619YmbWxeroy Exeter HospitalComment on above:Performed By: #### BMP #### [facility] ([facility]) [address] [place] [address] VIRCO2 [Moles/Vol]23 mmol/ARykqjt59-80AgyKryqfz [facility] Comment on above:Performed By: #### BMP #### [facility] ([facility]) [address] [place] [address] VIRCreatinine [Mass/Vol]0.72 mg/dLNormal0.40-1.00ProCleveland Clinic Marymount Hospital HospitalComment on above:Result Comment: METHOD TRACEABLE TO IDMS STANDARDPerformed By: #### BMP #### [facility] ([facility]) [address] [place] [address] VIREGFR (CKD-EPI) NON-RACE DEPENDENT>^90Normal>=60ProCleveland Clinic Marymount Hospital HospitalComment on above:Result Comment: Reported eGFR is based on the CKD-EPI 1 equation that does not use a race coefficient.Performed By: #### BMP #### [facility] ([facility]) [address] [place] [address] VIRGlucose [Mass/Vol]91 mg/aEVrcgkv86-88CjiMcnobe [place] HospitalComment on above:Performed By: #### BMP #### [facility] ([facility]) [address] [place] [address] VIRPotassium [Moles/Vol]4.2 mmol/LNormal3.5-5.0ProBarberton Citizens HospitalComment on above:Performed By: #### BMP #### [facility] ([facility]) [address] [place] [address] VIRSodium [Moles/Vol]135 mmol/SXbdxts209-262YtrXixnyn [place] HospitalComment on above:Performed By: #### BMP #### [facility] ([facility]) [address] [place] [address] VIRUrea nitrogen [Mass/Vol]15 mg/dLNormal5-23ProBarberton Citizens HospitalComment on above:Performed By: #### BMP #### [facility] ([facility]) [address] [place] [address] VIRBasic Metabolic Panelon 14-84-7607Bwygm gap [Moles/Vol]10 mmol/L5 - 15 mmol/LProMedica Health SystemCalcium [Mass/Vol]9.1 mg/dL8.5 - 10.5 mg/dLSelect Medical Specialty Hospital - Trumbull SystemChloride [Moles/Vol]102 mmol/L98 - 109 mmol/L [facility] HospitalCO2 [Moles/Vol]23 mmol/L22 - 32 mmol/LProMedica Health SystemCreatinine [Mass/Vol]0.72 mg/dL0.40 - 1.00 mg/dLCincinnati Shriners Hospital Comment on above:METHOD TRACEABLE TO IDMS STANDARDEGFR Non-Race Dependent- PINF [facility] HospitalComment on above:Reported eGFR is based on the CKD-EPI 2020 equation that does not use a race coefficient. Glucose [Mass/Vol]91 mg/dL65 - 99 mg/dLProThomasville Regional Medical Center Health SystemPotassium [Moles/Vol]4.2 mmol/L3.5 - 5.0 mmol/LProMedica Health SystemSodium [Moles/Vol] 135 mmol/L134 - 146 mmol/LProMedica Health SystemUrea nitrogen [Mass/Vol]15 mg/dL5 - 23 mg/dLSelect Medical Specialty Hospital - Trumbull SystemCBCon 06-66-7922Lpekpqxfglk distribution width (RBC) [Ratio]13.8 %11.5 - 15 %[facility]ers HospitalHematocrit (Bld) [Volume fraction]42.4 %35 - 47 %[facility] HospitalHemoglobin (Bld) [Mass/Vol]14.6 g/dL11.7 - 15.5 g/dLCincinnati Shriners HospitalInterpretation and review of laboratory resultsNormalCincinnati Shriners HospitalMCH (RBC) [Entitic mass]31.2 pg27 - 34 pgPProtestant Deaconess HospitalMCHC (RBC) [Mass/Vol]34.3 g/dL32 - 36 g/dLCincinnati Shriners HospitalMCV (RBC) [Entitic vol]91 fL80 - 100 [facility] CarePlatelet mean volume (Bld) [Entitic vol]8.1 fL7 - 12 [facility] CarePlatelets (Bld) [#/Vol]261 10*3/[facility] HospitalRBC (Bld) [#/Vol]4.66 10*6/[facility] HospitalWBC LM Ql (Sput)11[facility] SystemCBC (NO DIFF)on 98-83-3958Tyuvejeiobr distribution width (RBC) [Ratio]13.8 %Woiyen27.5-15WVUMedicine Harrison Community HospitalComment on above: Performed By: #### CBC #### [facility] ([facility]) [address] [place] [address] VIRHematocrit (Bld) [Volume fraction]42.4 %Bjktrz45-47UpzNdgwtzWVUMedicine Harrison Community HospitalComment on above:Performed By: #### CBC #### [facility] ([facility]) [address] [place] [address] VIRHemoglobin (Bld) [Mass/Vol]14.6 g/sYPantir65.7-15.5PAshtabula County Medical CenterComment on above:Performed By: #### CBC #### [facility] ([facility]) [address] [place] [address] VIRH (RBC) [Entitic mass]31.2 huVtjkmh84-46NgyLmvtpl [place] HospitalComment on above:Performed By: #### CBC #### [facility] ([facility]) [address] [place] [address] VIRMCHC (RBC) [Mass/Vol]34.3 g/gWZwbqdw66-87ZrlFzyaqb [facility] HospitalComment on above:Performed By: #### CBC #### [facility] ([facility]) [address] [place] [address] VIRMCV (RBC) [Entitic vol]91 dBStiefe15-823GqrTehiko [facility] HospitalComment on above:Performed By: #### CBC #### [facility] ([facility]) [address] [place] [address] VIRPlatelet mean volume (Bld) [Entitic vol]8.1 fLNormal7-12 [facility] HospitalComment on above:Performed By: #### CBC #### [facility] ([facility]) [address] [place] [address] VIRPlatelets (Bld) [#/Vol]261 10*3/gNKvchwn712-620NazPfsady [facility] HospitalComment on above:Performed By: #### CBC #### [facility] ([facility]) [address] [place] [address] VIRRBC COUNT4.66 X10E12/LNormal3.8-5.2[facility] Comment on above:Performed By: #### CBC #### [facility] ([facility]) [address] [place] [address] VIRWBC (Bld) [#/Vol]11.0 10*3/uLNormal4-11Pro[facility] HospitalComment on above:Performed By: #### CBC #### [facility] ([facility]) [address] [place] [address] VIRECG 12 leadon 74-74-2556WSUKADMRFYXVQIGdzBuwhvz Health SystemFERRITINon 42-13-8758Tkmixxdj [Mass/Vol]81 ng/jUPknhhq29-536BcoZxoxca [facility] HospitalComment on above:Performed By: #### FERR #### [facility] ([facility]) [address] [place] [address] VIRFerritinon 16-63-5700Sxilmsiz [Mass/Vol]81 ng/mL11 - 307 ng/mLCincinnati Shriners HospitalInterpretation and review of laboratory results NormalFairmount Behavioral Health SystemHEMOGLOBIN A1Con 10-17-2024 Glucose [Mass/Vol]105 mg/dLNormalWVUMedicine Harrison Community HospitalComment on above: Performed By: #### NEMESIO #### [facility] ([facility]) [address] [place] [address] NLCDsX7z (Bld) [Mass fraction]5.3 %Normal4.4-5.6WVUMedicine Harrison Community HospitalComment on above:Result Comment: ADA Guidelines Result HgbA1c Normal : less than 5.7 % Prediabetes : 5.7 % to 6.4 % Diabetes : > 6.4 % Use with caution in patients with abnormal hemoglobin variants as the half-life of red blood cells and in vivo glycation rates are affected.Performed By: #### HA1C #### [facility] ([facility]) [address] [place] [address] VIRHemoglobin A1con 26-60-3370Bhfotgh glucose Estimated from glycated hemoglobin (Bld) [Mass/Vol]105 mg/dLCincinnati Shriners HospitalHbA1c (Bld) [Mass fraction]5.3 %4.4 - 5.6 %[facility] HospitalComment on above:ADA Guidelines Result HgbA1c Normal : less than 5.7 % Prediabetes : 5.7 % to 6.4 % Diabetes : > 6.4 % Use with caution in patients with abnormal hemoglobin variants as the half-life of red blood cells and in vivo glycation rates are affected. [facility] Health SystemIRON AND TIBCon 70-55-4700Nvju [Mass/Vol]74 ug/dLNormal 50-170ProC[facility] HospitalComment on above:Performed By: #### FEPR #### [facility] ([facility]) [address] [place] [address] VIRIRON GKNELWN423 ug/aFPyeezv541-759ImjZwjuxb [facility] Comment on above:Performed By: #### FEPR #### [facility] ([facility]) [address] [place] [address] VIRIRON TTGIMEAKUO73 % QVJNVNLYUEAnijzo37-36YqqRfwias [facility] HospitalComment on above:Performed By: #### FEPR #### [facility] ([facility]) [address] [place] [address] VIRTransferrin [Mass/Vol]240 mg/vNDjgrmq707-006HbsEtaalm [facility] HospitalComment on above:Performed By: #### FEPR #### [facility] ([facility]) [address] [place] [address] VIRIron and TIBCon 37-54-6151Boxn [Mass/Vol]74 ug/dL50 - 170 ug/dLProThomasville Regional Medical Center Health SystemIron binding capacity [Mass/Vol]336 ug/dL250 - 425 ug/dLProThomasville Regional Medical Center Health SystemIron saturation [Mass fraction]22ProMedica Health SystemTransferrin [Mass or moles/Vol]240 mg/dL168 - 336 mg/dLSelect Medical Specialty Hospital - [facility]ull SystemLIPID PROFILEon 91-97-9144Rtfrghqyeot [Mass/Vol]157 mg/uLJjvqmr410-089 [facility] Community HospitalComment on above:Performed By: #### LIPR #### [facility] ([facility]) [address] [place] [address] VIRCholesterol in HDL [Mass/Vol]40 mg/dLNormal>39ProC[facility] Clinic [facility] Hospital HospitalComment on above:Result Comment: HDL <40 mg/dL - High Risk HDL > or = 40mg/dL- Desirable HDL >60 mg/dL - Negative RiskPerformed By: #### LIPR #### [facility] ([facility]) [address] [place] [address] VIRCholesterol in LDL [Mass/Vol]90 mg/dLNormal<130ProC[facility] Clinic [facility] HospitalComment on above:Result Comment: LDL <100 mg/dL - Desirable LDL >160 mg/dL - High RiskPerformed By: #### LIPR #### [facility] ([facility]) [address] [place] [address] VIRCHOLESTEROL:HDL3.9Zzqwmq9.0-5.0[facility] Comment on above:Performed By: #### LIPR #### [facility] ([facility]) [address] [place] [address] VIRTriglyceride [Mass/Vol]133 mg/xVXwlwwy91-563YbiJtardp [place] HospitalComment on above:Performed By: #### LIPR #### [facility] ([facility]) [address] [place] [address] VIRVERY LOW KUPBKWDBTKR44 mg/dLNormal0-30ProC[facility] Clinic [facility] HospitalComment on above:Performed By: #### LIPR #### [facility] ([facility]) [address] [place] [address] VIRLIVER PANELon 40-13-6533Wawtayz [Mass/Vol]4.3 g/dLNormal 3.2-5.3ProMedica [facility] HospitalComment on above:Performed By: #### LIVR #### [facility] ([facility]) [address] [place] [address] VIRALP [Catalytic activity/Vol]65 U/UYjvcpa28-953ZdiAvkpsv [place] HospitalComment on above:Performed By: #### LIVR #### [facility] ([facility]) [address] [place] [address] VIRALT [Catalytic activity/Vol]17 U/LNormal<=31PAshtabula County Medical CenterComment on above:Performed By: #### LIVR #### [facility] ([facility]) [address] [place] [address] VIRAST [Catalytic activity/Vol]15 U/LNormal<=41ProC[facility] Clinic [facility] Hospital HospitalComment on above:Performed By: #### LIVR #### [facility] ([facility]) [address] [place] [address] VIRBilirubin [Mass/Vol]0.4 mg/dLNormal0.3-1.2PAshtabula County Medical CenterComment on above:Performed By: #### LIVR #### [facility] ([facility]) [address] [place] [address] VIRBilirubin.indirect [Mass/Vol]mg/dLNormal<=0.4ProBarberton Citizens HospitalComment on above:Performed By: #### LIVR #### [facility] ([facility]) [address] [place] [address] VIRProtein [Mass/Vol]7.7 g/dLNormal6.0-8.0ProBarberton Citizens HospitalComment on above:Performed By: #### LIVR #### [facility] ([facility]) [address] [place] [address] VIRLipid profileon 10-53-2414Pigtbpaazrg [Mass/Vol]157 mg/dL150 - 200 mg/dLSelect Medical Specialty Hospital [facility] SystemCholesterol in HDL [Mass/Vol]40 mg/dL39 - PINF mg/dLSelect Medical Specialty Hospital - Trumbull SystemComment on above:HDL <40 mg/dL - High Risk HDL > or = 40mg/dL- Desirable HDL >60 mg/dL - Negative Risk Cholesterol in HDL [Mass/Vol]3.9 mg/dL1.0 - 5.0ProThomasville Regional Medical Center Health System Cholesterol in LDL [Mass/Vol]90 mg/dLNINF - 130 mg/dLProLake County [facility]ca [facility] Comment on above:LDL <100 mg/dL - Desirable LDL >160 mg/dL - High Risk Cholesterol in VLDL [Mass/Vol]27 mg/dL0 - 30 mg/dLCincinnati Shriners Hospital Triglyceride [Mass/Vol]133 mg/dL27 - 150 mg/dLCincinnati Shriners HospitalLiver panel on 92-11-9358Ogllqtr [Mass/Vol]4.3 g/dL3.2 - 5.3 g/dLCincinnati Shriners HospitalALP [Catalytic activity/Vol]65 U/L39 - 130 U/LPrSamaritan North Health Center SystemALT No additional P-5'-P [Catalytic activity/Vol]17 U/LNINF - 31 U/LPrEating Recovery Center a Behavioral [facility] for Children and Adolescents Health SystemAST [Catalytic activity/Vol]15 U/LNINF - 41 U/[facility] System Bilirubin [Mass/Vol]0.4 mg/dL0.3 - 1.2 mg/dLCincinnati Shriners Hospital Bilirubin.direct [Mass/Vol]mg/dLNINF - 0.4 mg/dLCincinnati Shriners HospitalProtein [Mass/Vol]7.7 g/dL6.0 - 8.0 g/dLCincinnati Shriners HospitalNo Panel Informationon 58-22-0683Piiroguoqqfdvw and review of laboratory resultsNormalFairmount Behavioral Health SystemInterpretation and review of laboratory results NormalFairmount Behavioral Health SystemPARATHYROID HORMOME, INTACT on 55-01-8781OMS SYXGSB57 pg/bRDihqqf45-21XacKnooma [place] HospitalComment on above:Performed By: #### PTH #### [facility] ([facility]) [address] [place] [address] VIRPROTIME AND INRon 34-27-6654BUE8.3Enwvss2.9-1.2PMcCullough-Hyde Memorial Hospital HospitalComment on above:Performed By: #### PINR #### [facility] ([facility]) [address] [place] [address] VIRPT Coag (PPP) [Time]11.2 sNormal9.8-13.2PMcCullough-Hyde Memorial Hospital HospitalComment on above:Performed By: #### PINR #### [facility] ([facility]) [address] [place] [address] VIRParathyroid Hormone, intacton 49-52-3059Mqvrlwfpncdfox and review of laboratory resultsNormalCincinnati Shriners HospitalParathyrin.intact [Mass/Vol]28 pg/mL12 - 88 pg/mLCincinnati Shriners HospitalProUniversity Hospitals St[facility] Protime-INRon 44-56-7007FCL Coag (Platelet poor plasma or blood) [Relative time] 10.9 - 1.2PProtestant Deaconess HospitalPT Coag (PPP) [Time]11.2 [facility] Private HospitalTHIAMIN (VITAMIN B1), WBon 42-64-1641GCXJYPG (VITAMIN B1), WBTNPNormal [facility] HospitalComment on above:Result Comment: Thiamin (Vitamin B1), WB was cancelled on 10/18/2024 at 23:02; Specimen was clotted. Test Performed by: [place] [address] Checker/Stocker: Kevin Wolfe Ph.D.; CLIA# [id number] By: #### PINR #### [facility] ([facility]) [address] [place] [address] VIRVITAMIN B12on 05-51-4478Wetyvpofz (Vitamin B12) [Mass/Vol] 657 pg/mWGfvesa691-504FvlNmkcub [place] HospitalComment on above:Performed By: #### PINR #### [facility] ([facility]) [address] [place] [address] VIRVITAMIN D 25 HYDROXYon [id number] D 25 HYD TOT32.1 ng/yBOpzwlk97.0-100.0WVUMed[facility] Community HospitalComment on above:Order Comment: Vitamin D status 25 [place] Vitamin D Deficiency <20 ng/mLInsufficiency 20-29 ng/mLSufficiency 30-100 ng/mLToxicity >100 ng/mLNOTE: A pediatric reference range has not been established by the patrol driver of this kit. The [employer] recommends a Vitamin D level of = or >20ng/mL in infants and children.Performed By: #### PINR #### [facility] ([facility]) [address] [place] [address] VIRVitamin B12on 99-31-6168Jobnymphw (Vitamin B12) [Mass/Vol] 657 pg/mL180 - 914 pg/mLCincinnati Shriners HospitalInterpretation and review of laboratory resultsNormalFairmount Behavioral Health SystemVitamin D 25 hydroxyon [id number]-gznfhxjqlrpyuj D3 [Mass/Vol]32.1 ng/mL30.0 - 100.0 ng/mLCincinnati Shriners HospitalInterpretation and review of laboratory results NormalCincinnati Shriners HospitalVitamin D status 25 [place] Vitamin D Deficiency <20 ng/mL Insufficiency 20-29 ng/mL Sufficiency 30-100 ng/mL Toxicity >100 ng/mL NOTE: A pediatric reference range has not been established by the patrol driver of this kit. The [employer] recommends a Vitamin D level of = or >20ng/mL in infants and children.Fair[facility] Behavioral Health SystemNICOTINE AND METABOLITES, RANDOM, URINEon 30-56-8668GPBOEXVBX<2.0Normal <2.0[facility] Heights Medical Centerment on above:Result Comment: ADDITIONAL INFORMATION This test was developed and its performance characteristics determined by [facility] in a manner consistent with CLIA requirements. This test has not been cleared or approved by the [place]. Food and Drug Administration. Test Performed by: [facility] [address] [place] [address] Checker/Stocker: Kevin Wolfe Ph.D.; CLIA# [id number] By: #### CBCA, 3016-3, 2498-4, LIVR, 2731-8, 2132-9, 04708-6, HA1C #### [facility] ([id number]) [address], [address] [place], [place] [address]SFALVGLN<5.0Normal<5.0ProGraham Regional Medical CenterComment on above:Performed By: #### CBCA, 3016-3, 2498-4, LIVR, 2731-8, 2132-9, 37595-7, HA1C #### [facility] ([id number]) [address], [address] [place], [place] [address]QVVMMBSX<5.0Normal<5.0ProGraham Regional Medical CenterComment on above:Performed By: #### CBCA, 3016-3, 2498-4, LIVR, 2731-8, 2-9, 16139-2, HA1C #### [facility] ([id number]) [address], [address] [place], [place] [address]EQZABXJHZKD<2.0Normal<2.0ProGraham Regional Medical CenterComment on above:Performed By: #### CBCA, 3016-3, 2498-4, LIVR, 2731-8, 2132-9, 01163-2, HA1C #### [facility] ([id number]) [address], [address] [place], [place] [address]ED CHEST (2 VW)on [id number] CHEST (2 VW)EXAMINATION: TWO XRAY VIEWS OF THE CHEST 08/09/2024 9:33 am COMPARISON: None. HISTORY: ORDERING SYSTEM PROVIDED HISTORY: Acute bronchitis, unspecified organism FINDINGS: The lungs are without acute focal process. There is no effusion or pneumothorax. No marked bronchial wall thickening suspected radiographically. The cardiomediastinal silhouette is without acute process. The osseous structures are without acute process. IMPRESSION: No acute process. Interpreted by: Ronni Black MD Signed by: Ronni Black MD 08/12/24 Final resultNormalPeoples HospitalBrain Natri. Peptideon 08-09-2024 Natriuretic peptide B (Bld) [Mass/Vol]63 pg/mLNormal0-125[facility] Comment on above:Performed By: #### SED, CP, CDP, CK, HAM, BNP, CRP, TROPI ####[facility] [place] [phone] Director: Mauricio Irby MDBrain Natriuretic Peptideon 08-09-2024 Natriuretic peptide B (Bld) [Mass/Vol]63 pg/mL0 - 125 pg/mLSentara CarePlex HospitalC-Reactive Proteinon [id number] High sensitivity method [Mass/Vol]12.0 mg/LHigh0.0 - 5.0 mg/LBon [facility] CRP [Mass/Vol]12.0 mg/LHigh0.0-5.0Peoples HospitalComment on above: Performed By: #### SED, CP, CDP, CK, HAM, BNP, CRP, TROPI #### [facility] [address] [place] [address] Checker/Stocker: Mauricio Irby [facility] with Auto Differentialon [id number] (Bld) [#/Vol]0.03 10*3/uLBon [facility] HospitalBasophils/100 WBC (Bld)0 %0 - 2 %[facility]ord HospitalEosinophils (Bld) [#/Vol]0.12 10*3/uLBon [facility] HospitalEosinophils/100 WBC (Bld)1 %1 - 4 %[facility] HospitalErythrocyte distribution width (RBC) [Ratio]14.1 %11.8 - 14.4 %[facility] Hematocrit (Bld) [Volume fraction]41.8 %36.3 - 47.1 %[facility] Hemoglobin (Bld) [Mass/Vol]13.9 g/dL11.9 - 15.1 g/dLBon [facility] Immature granulocytes (Bld) [#/Vol]0.08 10*3/uLBon [facility] HospitalImmature granulocytes/100 WBC (Bld)1 %Lzob3LorStafford HospitalInterpretation and review of laboratory resultsAbnormalBon [facility] HospitalLymphocytes/100 WBC (Bld)30 %24 - 43 %[facility]ord HospitalLymphocytes/100 WBC (Bld)3.49 %[facility] SystemH (RBC) [Entitic mass]30.8 pg25.2 - 33.5 pgFauquier Health SystemHC (RBC) [Mass/Vol]33.3 g/dL28.4 - 34.8 g/dLBon [facility] CampusV (RBC) [Entitic vol]92.5 fL82.6 - 102.9 fLStafford Hospital Monocytes/100 WBC (Bld)6 %3 - 12 %[facility] HospitalMonocytes/100 WBC (Bld)0.66 %[facility] HospitalNeutrophils/100 WBC (Bld)62 %36 - 65 %[facility] HospitalNucleated RBC/100 WBC (Bld) [Ratio]0 %0.0 per 100 WBCStafford HospitalPlatelet mean volume (Bld) [Entitic vol]8.8 fL8.1 - 13.5 fL Stafford HospitalPlatelets (Bld) [#/Vol]255 10*3/uLStafford HospitalRBC (Bld) [#/Vol]4.52 10*6/uL3.95 - 5.11 m/uLStafford Hospital Segmented neutrophils/100 WBC (Bld)7.21 %Stafford HospitalWBC other (Bld) [#/Vol]11.6HighSentara CarePlex HospitalCBC with Diffon [id number]. Basophil0.03 k/uLNormal0.00-0.20Peoples HospitalComment on above:Performed By: #### SED, CP, CDP, CK, HAM, BNP, CRP, TROPI #### [address] [place], [place] [address] Checker/Stocker: MDAbs. AzaleaImm.Granulocyte0.08 k/uLNormal0.00-0.30Peoples HospitalComment on above:Performed By: #### SED, CP, CDP, CK, HAM, BNP, CRP, TROPI #### [address] [place] [address] Checker/Stocker: MDAbs. AzaleaNeutrophil (Seg)7.21 k/uLNormal1.50-8.10Peoples HospitalComment on above:Performed By: #### SED, CP, CDP, CK, HAM, BNP, CRP, TROPI #### [address] [place] [address] Checker/Stocker: Mauricio Irby MDBasophils/100 WBC (Bld)0 %Normal0-2MMercy Health Clermont Hospital HospitalComment on above:Performed By: #### SED, CP, CDP, CK, HAM, BNP, CRP, TROPI #### [address] [place] [address] Checker/Stocker: Mauricio Irby MDEosinophils (Bld) [#/Vol]0.12 10*3/uLNormal 0.00-0.44Peoples HospitalComment on above:Performed By: #### SED, CP, CDP, CK, HAM, BNP, CRP, TROPI #### [address] [place], [place] [address] Checker/Stocker: KRYSTIN Tristanosinophils/100 WBC (Bld)1 %Normal1-4Peoples HospitalComment on above:Performed By: #### SED, CP, CDP, CK, HAM, BNP, CRP, TROPI #### [address] [place], [place] [address] Checker/Stocker: Mauricio Irby MDErythrocyte distribution width (RBC) [Ratio]14.1 % Pelayj23.8-14.4Peoples HospitalComment on above:Performed By: #### SED, CP, CDP, CK, HAM, BNP, CRP, TROPI #### [address] [place], [place] [address]83 Checker/Stocker: Mauricio Irby MDHematocrit (Bld) [Volume fraction]41.8 %Normal 36.3-47.1MSalem Regional Medical CenterComment on above:Performed By: #### SED, CP, CDP, CK, HAM, BNP, CRP, TROPI #### [address] [place], [place] [address] Checker/Stocker: Mauricio Irby MDHemoglobin (Bld) [Mass/Vol]13.9 g/dLNormal 11.9-15.1MSalem Regional Medical CenterComment on above:Performed By: #### SED, CP, CDP, CK, HAM, BNP, CRP, TROPI #### [address] [place], [place] [address] Checker/Stocker: Mauricio Irby MDImmature granulocytes/100 WBC (Bld)1 %Zrkt5NvbtePeoples HospitalComment on above:Performed By: #### SED, CP, CDP, CK, HAM, BNP, CRP, TROPI #### [address] [place], [place] [address] Checker/Stocker: Mauricio Irby MDLymphocytes (Bld) [#/Vol]3.49 10*3/uLNormal 1.10-3.70Peoples HospitalComment on above:Performed By: #### SED, CP, CDP, CK, HAM, BNP, CRP, TROPI #### [address] [place] [address] Checker/Stocker: Arleth Tristanmphocytes/100 WBC (Bld)30 %Bygxnh98-10YewdoPeoples HospitalComment on above:Performed By: #### SED, CP, CDP, CK, HAM, BNP, CRP, TROPI #### [address] [place] [address] Checker/Stocker: HUA Tristan (RBC) [Entitic mass]30.8 tzErutnw45.2-33.5 [facility] HospitalComment on above:Performed By: #### SED, CP, CDP, CK, HAM, BNP, CRP, TROPI #### [address] [place], [facility]83 Checker/Stocker: HUA TristanC (RBC) [Mass/Vol]33.3 g/fGYwyepe56.4-34.8Peoples HospitalComment on above:Performed By: #### SED, CP, CDP, CK, HAM, BNP, CRP, TROPI #### [address] [place], [facility]83 Checker/Stocker: DIPAK TristanCV (RBC) [Entitic vol]92.5 fCArcjby68.6-102.9 Peoples HospitalComment on above:Performed By: #### SED, CP, CDP, CK, HAM, BNP, CRP, TROPI #### [address] [place], [facility]83 Checker/Stocker: DIPAK Tristanonocytes (Bld) [#/Vol]0.66 10*3/uLNormal0.10-1.20 Peoples HospitalComment on above:Performed By: #### SED, CP, CDP, CK, HAM, BNP, CRP, TROPI #### [address] [place] [address] Checker/Stocker: DIPAK Tristanonocytes/100 WBC (Bld)6 %Normal3-12Peoples HospitalComment on above:Performed By: #### SED, CP, CDP, CK, HAM, BNP, CRP, TROPI #### [address] [place] [address] Checker/Stocker: Kylie Tristan (Seg)62 %Jiqtun84-58CnogbPeoples HospitalComment on above:Performed By: #### SED, CP, CDP, CK, HAM, BNP, CRP, TROPI #### [address] [place], [place] 484[address]83 Checker/Stocker: CUAUHTEMOC Tristan Automated0.0 per 100 WBCNormal0.0Peoples HospitalComment on above:Performed By: #### SED, CP, CDP, CK, HAM, BNP, CRP, TROPI #### [address] [place] [address] Checker/Stocker: Tameka Tristan mean volume (Bld) [Entitic vol]8.8 fL Normal8.1-13.5Peoples HospitalComment on above:Performed By: #### SED, CP, CDP, CK, HAM, BNP, CRP, TROPI #### [address] [place], [place] [phone] Checker/Stocker: Alyssa Tristan (Bld) [#/Vol]255 10*3/aWWlwgio576-059 Peoples HospitalComment on above:Performed By: #### SED, CP, CDP, CK, HAM, BNP, CRP, TROPI #### [address] [place] [address] Checker/Stocker: ARIC Tristan (Bld) [#/Vol]4.52 10*6/uLNormal3.95-5.11Peoples HospitalComment on above:Performed By: #### SED, CP, CDP, CK, HAM, BNP, CRP, TROPI #### [address] [place], [place] 06[address]83 Checker/Stocker: Mauricio Irby MDWBC (d) [#/Vol]11.6 10*3/uLHigh3.5-11.3MSalem Regional Medical CenterComment on above:Performed By: #### SED, CP, CDP, CK, HAM, BNP, CRP, TROPI #### [address] [place], [place] 8397683 Checker/Stocker: Mauricio Irby, MDCKon [id number] [Catalytic activity/Vol]26 U/L26 - 192 U/LBon [facility] Metabolic Profon 36-34-8271Zygbqlz [Mass/Vol]3.8 g/dLNormal3.5-5.2MMercy Health Clermont Hospital HospitalComment on above:Performed By: #### SED, CP, CDP, CK, HAM, BNP, CRP, TROPI #### [address] [place], [place] 9206383 Checker/Stocker: Mauricio Irby MDAlbumin/Glob Ratio1.5Xvtoij9.0-2.5Peoples HospitalComment on above:Performed By: #### SED, CP, CDP, CK, HAM, BNP, CRP, TROPI #### [address] [place], [place] 894[address]83 Checker/Stocker: Paco Tristanline Phos68 U/BQobsgy78-344WzjqxPeoples HospitalComment on above:Performed By: #### SED, CP, CDP, CK, HAM, BNP, CRP, TROPI #### [address] [place] [address] Checker/Stocker: Mauricio Irby MDALT [Catalytic activity/Vol]11 U/BGimgnc50-95ImhcePeoples HospitalComment on above:Performed By: #### SED, CP, CDP, CK, HAM, BNP, CRP, TROPI #### [address] [place], [place] 8[address]83 Checker/Stocker: Mauricio Irby MDAnion gap [Moles/Vol]9 mmol/LNormal9-16Peoples HospitalComment on above:Performed By: #### SED, CP, CDP, CK, HAM, BNP, CRP, TROPI #### [address] [place] [address] Checker/Stocker: Mauricio Irby MDAST [Catalytic activity/Vol]11 U/EFqmeso84-65ArhaaPeoples HospitalComment on above:Performed By: #### SED, CP, CDP, CK, HAM, BNP, CRP, TROPI #### [address] [place] [address] Checker/Stocker: Mauricio Irby MDBilirubin [Mass/Vol]0.2 mg/dLNormal0.00-1.20Peoples HospitalComment on above:Performed By: #### SED, CP, CDP, CK, HAM, BNP, CRP, TROPI #### [address] [place] [address] Checker/Stocker: Mauricio Irby MDBUN/CRE Pbxjp68Fhnine1-91Ftctc [facility] Comment on above:Performed By: #### SED, CP, CDP, CK, HAM, BNP, CRP, TROPI #### [address] [place] [address] Checker/Stocker: SHARMAINE Tristanalcium [Mass/Vol]8.5 mg/dLLow8.6-10.4Peoples HospitalComment on above:Performed By: #### SED, CP, CDP, CK, HAM, BNP, CRP, TROPI #### [address] [place] [address] Checker/Stocker: SHARMAINE Tristanhloride [Moles/Vol]104 mmol/MOxvfdu86-794CpirdPeoples HospitalComment on above:Performed By: #### SED, CP, CDP, CK, HAM, BNP, CRP, TROPI #### [address] [place] [address] Checker/Stocker: SHARMAINE TristanO2 [Moles/Vol]25 mmol/DQokexy77-26ZiarxPeoples HospitalComment on above:Performed By: #### SED, CP, CDP, CK, HAM, BNP, CRP, TROPI #### [address] [place] [address] Checker/Stocker: SHARMAINE Tristanreatinine [Mass/Vol]0.7 mg/dLNormal0.50-0.90Peoples HospitalComment on above:Performed By: #### SED, CP, CDP, CK, HAM, BNP, CRP, TROPI #### [address] [place] [address] Checker/Stocker: Mauricio Irby MDGFR/1.73 sq M.predicted among non-blacks MDRD (S/P/Bld) [Vol rate/Area]mL/min/{1.73_m2}Normal>60Peoples HospitalComment on above:Result Comment: These results are not intended for [...] or following therapy that affects renal tubular secretion.Performed By: #### SED, CP, CDP, CK, HAM, BNP, CRP, TROPI #### [address] [place] [address] Checker/Stocker: Mauricio Irby MDGlucose [Mass/Vol]108 mg/fMGkpj96-91FwzefSalem Regional Medical CenterComment on above:Performed By: #### SED, CP, CDP, CK, HAM, BNP, CRP, TROPI #### [address] [place] 255[address]83 Checker/Stocker: GOMEZ Tristanotassium [Moles/Vol]4.0 mmol/LNormal3.7-5.3MSalem Regional Medical CenterComment on above:Performed By: #### SED, CP, CDP, CK, HAM, BNP, CRP, TROPI #### [address] [place], [place] 6980883 Checker/Stocker: Mauricio Irby MDProtein [Mass/Vol]6.9 g/dLNormal6.6-8.7Peoples HospitalComment on above:Performed By: #### SED, CP, CDP, CK, HAM, BNP, CRP, TROPI #### [address] [place], [place] [address] Checker/Stocker: Mauricio Irby MDSodium [Moles/Vol]138 mmol/SMxjhtl347-715UpabwPeoples HospitalComment on above:Performed By: #### SED, CP, CDP, CK, HAM, BNP, CRP, TROPI #### [address] [place], [place] [address]83 Checker/Stocker: Mauricio Irby MDUrea nitrogen [Mass/Vol]14 mg/dLNormal6-20Peoples HospitalComment on above:Performed By: #### SED, CP, CDP, CK, HAM, BNP, CRP, TROPI #### [address] [place] [address] Checker/Stocker: SHARMAINE Tristanomprehensive Metabolic Panelon [id number] [Mass/Vol]3.8 g/dL3.5 - 5.2 g/dLBon [facility] HospitalAlbumin/Globulin [Mass ratio]1.2 {ratio}1.0 - 2.5Bon [facility] HospitalALP [Catalytic activity/Vol]68 U/L35 - 104 U/LBon [facility] HospitalALT [Catalytic activity/Vol]11 U/L10 - 35 U/LBon [facility] HospitalAnion gap [Moles/Vol]9 mmol/L9 - 16 mmol/LBon [facility] HealthAST [Catalytic activity/Vol]11 U/L10 - 35 U/LBon [facility] HealthBilirubin [Mass/Vol]0.2 mg/dL0.00 - 1.20 mg/dLBon [facility] Calcium [Mass/Vol]8.5 mg/dLLow8.6 - 10.4 mg/dLBon [facility] Hospital[facility] HealthChloride [Moles/Vol]104 mmol/L98 - 107 mmol/LBon [facility] HealthCO2 [Moles/Vol]25 mmol/L20 - 31 mmol/LBon St. [facility] Hospitalours [facility] HospitalCreatinine [Mass/Vol]0.7 mg/dL0.50 - 0.90 mg/dLBon [facility]ours St. [facility] HealthEst, Glom Filt Rate- PINFBon [facility] HospitalComment on above: These results are not intended [...] therapy that affects renal tubular secretion. Glucose [Mass/Vol]108 mg/lRGabn90 - 99 mg/dLBon [facility] HealthPotassium [Moles/Vol]4 mmol/L3.7 - 5.3 mmol/LBon [facility] HealthProtein [Mass/Vol]6.9 g/dL6.6 - 8.7 g/dLBon [facility] HospitalSodium [Moles/Vol]138 mmol/L136 - 145 mmol/LBon [facility] HealthUrea nitrogen [Mass/Vol]14 mg/dL6 - 20 mg/dLBon [facility] HealthUrea nitrogen/Creatinine [Mass ratio]20 mg/mg9 - 20Bon [facility] HospitalCreatine Kinaseon 58-56-5787GL [Catalytic activity/Vol]26 U/DXjgrpd74-701IhswvPeoples HospitalComment on above:Performed By: #### SED, CP, CDP, CK, HAM, BNP, CRP, TROPI #### [facility] [address] [place], [place] [address] Checker/Stocker: Hailey Tristanglobineville 69-72-4377Fbiweuboh [Mass/Vol]29 ng/mL Ayufla64-47JstgxPeoples HospitalComment on above:Performed By: #### SED, CP, CDP, CK, HAM, BNP, CRP, TROPI #### [facility] [address] [place], [place] [address]83 Checker/Stocker: Jos Tristan, Bloodon 58-25-4963Temfjeprh [Mass/Vol] 29 ng/mL25 - 58 ng/mLBon [facility] Si[facility] FallsNo Panel Informationon 29-20-2860Guvqygzpqqfngu and review of laboratory resultsAbnormal [facility] Centerdimentation Rateon 08-09-2024 ESR Photometric method (Bld) [Velocity]13Bon [facility]. [facility]'s Hospitaldimentation Rate13 mm/HrNormal0-20Peoples HospitalComment on above:Performed By: #### SED, CP, CDP, CK, HAM, BNP, CRP, TROPI ####[address] , [place] [address] Lab Director: Avril Tristan 45-85-3457Ryyhqyrz I.cardiac High sensitivity method [Mass/Vol]ng/L0 - 14 ng/LBon [facility] HospitalComment on above:High Sensitivity Troponin values cannot be compared with other Troponin methodologies.Troponin, High Sens<7Srxayh5-15CxxuaPeoples HospitalComaspirus ontonagon hospital on above:Result Comment: High Sensitivity Troponin values cannot be compared with other Troponin methodologies.Performed By: #### SED, CP, CDP, CK, HAM, BNP, CRP, TROPI ####[address] , [place] [phone] Director: Mauricio Irby [facility] with Auto Differentialon 08-05-2024 Basophils (Bld) [#/Vol]0 10*3/uLBon Secours Mount Carm[facility] Health Systemy HealthBasophils/100 WBC (Bld)0 %0 - 2 %[facility] HealthEosinophils (Bld) [#/Vol]0.28 10*3/uLBon [facility]ours [facility] HealthEosinophils/100 WBC (Bld)2 %1 - 4 %[facility] Erythrocyte distribution width (RBC) [Ratio]14.1 %11.8 - 14.4 %[facility] HospitalHematocrit (Bld) [Volume fraction]43.2 %36.3 - 47.1 %[facility] HealthHemoglobin (Bld) [Mass/Vol]14.3 g/dL11.9 - 15.1 g/dLBon Secours [facility] Samaritan HospitalImmature granulocytes (Bld) [#/Vol]0 10*3/uLBon [facility]ours [facility] Immature granulocytes/100 WBC (Bld)0 %0[facility] HealthInterpretation and review of laboratory resultsAbnormalBon Secours St. [facility] Hospital HealthLymphocytes/100 WBC (Bld)55 %High24 - 43 %[facility] HospitalLymphocytes/100 WBC (Bld)7.58 %HighBon Secours Select Medical Specialty Hospital - CincinnatiH (RBC) [Entitic mass]31 pg25.2 - 33.5 pgBon Secours [facility] Hospital - CincinnatiHC (RBC) [Mass/Vol]33.1 g/dL28.4 - 34.8 g/dLBon Secours [facility] Medical Special[facility] Hospital - CincinnatiV (RBC) [Entitic vol]93.5 fL82.6 - 102.[address] [facility] Hospital HealthMonocytes/100 WBC (Bld)2 %Low3 - 12 %[facility] HealthMonocytes/100 WBC (Bld)0.28 %[facility] HospitalMorphology Jordon (Bld) [Interp]NormalBon Secours St. [facility] HealthNeutrophils/100 WBC (Bld)41 %36 - 65 %[facility] Systemy [facility] HospitalNucleated RBC/100 WBC (Bld) [Ratio]0 %0.0 per 100 WBCBon Secours [facility] Samaritan HospitalPlatelet mean volume (Bld) [Entitic vol]9.7 fL8.1 - 13.5 fLStafford HospitalPlatelets (Bld) [#/Vol]293 10*3/uLBon [facility] HospitalRBC (Bld) [#/Vol]4.62 10*6/uL3.95 - 5.11 m/August[facility] HealthSegmented neutrophils/100 WBC (Bld)5.66 %Stafford HospitalWBC other (Bld) [#/Vol] 13.8HighSentara CarePlex HospitalCBC with Diffon [id number]. Basophil0.00 k/uLNormal0.0-0.2[facility] Institute Of LivingComment on above:Performed By: #### RA ####[address] [place], [place] [address])[phone] Director: Casa Medrano MD#### CP, CDP, SED ####[address] [place] [id number]([facility])[phone] Director: Jairon Tristan.Imm.Granulocyte0.00 k/uLNormal0.00-0.30Peoples HospitalComment on above:Performed By: #### RA ####[place] [address] Lab Director: Casa Medrano MD#### CP, CDP, SED ####[address] [place], [place] [address])[phone] Director: Jairon Tristan.Neutrophil (Seg)5.66 k/uL Normal1.50-8.10Peoples HospitalComment on above:Performed By: #### RA ####[place], [place] [address])[phone] Director: Casa Medrano MD#### CP, CDP, SED ####[address] [place] [address] Lab Director: Mauricio Irby MD Basophils/100 WBC (Bld)0 %Normal0-2MSalem Regional Medical CenterComment on above: Performed By: #### RA ####[address] [place], [place] [address])[phone] Director: Casa Medrano MD#### CP, CDP, SED ####[address] [place] [address] Lab Director: Mauricio Irby MDEosinophils (Bld) [#/Vol]0.28 10*3/uLNormal0.00-0.44 Peoples HospitalComment on above:Performed By: #### RA ####[address] [place], [place] [address])[phone] Director: Casa Medrano MD#### CP, CDP, SED ####[address] [place], [place] [address])[phone] Director: KRYSTIN Tristanosinophils/100 WBC (Bld)2 %Normal1-4Peoples HospitalComment on above:Performed By: #### RA ####[place], [place] [address])[phone] Director: Casa Medrano MD#### CP, CDP, SED ####[address] [place], [place] [address])[phone] Director: Mauricio Irby MDImmature granulocytes/100 WBC (Bld)0 %Riudlr0EehldPeoples HospitalComment on above: Performed By: #### RA ####[address] [place], [place] [address])[phone] Director: Casa Medrano MD#### CP, CDP, SED ####[address] [place], [place] [address])[phone] Director: Mauricio Irby MDLymphocytes (Bld) [#/Vol]7.58 10*3/uLHigh1.10-3.70 Peoples HospitalComment on above:Performed By: #### RA ####[address] [place], [place] [address])[phone] Director: Casa Medrano MD#### CP, CDP, SED ####[address] [place], [place] [address])[phone] Director: Mauricio Irby MDLymphocytes/100 WBC (Bld)55 %Zomo85-14Fjxkm Tiffin HospitalComment on above:Performed By: #### RA ####[address] [place], [place] [address])[phone] Director: Casa Medrano MD#### CP, CDP, SED ####[address] [place], [place] [address])[phone] Director: DIPAK Tristanonocytes (Bld) [#/Vol]0.28 10*3/uLNormal0.10-1.20[facility] HospitalComment on above:Performed By: #### RA ####[address] [place], [place] [address])[phone] Director: Casa Medrano MD#### CP, CDP, SED ####[address] , [place] [address])[phone] Director: DIPAK Tristanonocytes/100 WBC (Bld)2 %Low3-12[facility] Comment on above:Performed By: #### RA ####[address] [place], [place] [address])[phone] Director: Casa Medraon MD#### CP, CDP, SED ####[address] [place] [address])[phone] Director: DIPAK Tristanorphology Jordon (Bld) [Interp] NormalNormalKettering Health Washington Township HospitalComment on above:Performed By: #### RA ####[address] [place] [address] Lab Director: Casa Medrano MD#### CP, CDP, SED ####[address] [place], [place] [address] Lab Director: Mauricio Irby MD Neutrophil (Seg)41 %Bfjoex38-00ByiqpUniversity Hospitals Samaritan Medical Center on above:Performed By: #### RA ####[address] [phone] Director: Casa Medrano MD#### CP, CDP, SED ####[address] [place] [address] Lab Director: Mauricio Irby MDErythrocyte distribution width (RBC) [Ratio]14.1 %Eodslr38.8-14.4[facility] on above:Performed By: #### RA ####[address] [address] Lab Director: Casa Medrano MD#### CP, CDP, SED ####[address] [place] [address] Lab Director: Mauricio Irby MDHematocrit (Bld) [Volume fraction]43.2 %Zhazsp83.3-47.1MMercy Health [facility] on above: Performed By: #### RA ####[address] [phone] Director: Casa Medrano MD#### CP, CDP, SED ####[address] [place] [address] Lab Director: Mauricio Irby MDHemoglobin (Bld) [Mass/Vol]14.3 g/sFLqsgkc66.9-15.1 [facility] on above:Performed By: #### RA ####[address] [place] [address] Lab Director: Casa Medrano MD#### CP, CDP, SED ####[address] [place], [place] [address] Lab Director: DIPAK TristanCH (RBC) [Entitic mass]31.0 qnLftrjh79.2-33.5[facility] HospitalComment on above:Performed By: #### RA ####[address] [phone] Director: Casa Medrano MD#### CHELY, CDP, SED ####[address] [place], [place] [id number] Lab Director: HUA TristanC (RBC) [Mass/Vol]33.1 g/qTOzkhud34.4-34.8[facility] HospitalComment on above:Performed By: #### RA ####[address] [address] Lab Director: Casa Medrano MD#### CHELY, CDP, SED ####[address] [place] [address] Lab Director: DIPAK TristanCV (RBC) [Entitic vol]93.5 vOYwerfs01.6-102.9[facility] HospitalComment on above:Performed By: #### RA ####[address] [phone] Director: Casa Medrano MD#### CP, CDP, SED ####[address] [place], [place] [id number] Lab Director: Mauricio Irby MDNRBC Automated0.0 per 100 WBC Normal0.0[facility] HospitalComment on above:Performed By: #### RA ####[id number] [place], [place] [phone] Director: Casa Medrano MD#### CP, CDP, SED ####[address] [place] [address] Lab Director: Tameka Tristan mean volume (Bld) [Entitic vol]9.7 fLNormal8.1-13.5Peoples HospitalComment on above:Performed By: #### RA ####[address] [place] [address] Lab Director: Casa Medrano MD#### CP, CDP, SED ####[address] [place] [address] Lab Director: Alyssa Tristan (Bld) [#/Vol]293 10*3/yZSrxscv088-548RdschPeoples HospitalComment on above:Performed By: #### RA ####[address] [address] Lab Director: Casa Medrano MD#### CHELY, CDP, SED ####[address] [place] [address] Lab Director: LEONELA TristanBC (Bld) [#/Vol]4.62 10*6/uL Normal3.95-5.11Peoples HospitalComment on above:Performed By: #### RA ####[address] [place] [address] Lab Director: Casa Medrano MD#### CP, CDP, SED ####[address] [place] [address] Lab Director: Mauricio Irby MDWBC (Bld) [#/Vol]13.8 10*3/uLHigh3.5-11.3MercJohnson Memorial HospitalComment on above:Performed By: #### RA ####[facility] [place], [place] [phone] Director: Casa Medrano MD#### CP, CDP, SED ####[address] [place] [address] Lab Director: Teddy Tristan 11-24-3302IB [Catalytic activity/Vol]20 U/LLow26 - 192 U/LBon [facility] HospitalInterpretation and review of laboratory resultsAbnormalBon [facility] Metabolic Profon 07-78-9542Puzbkhr [Mass/Vol]3.9 g/dL Normal3.5-5.2MSalem Regional Medical CenterComment on above:Performed By: #### RA ####[address] [place], [place] [phone] Director: Casa Medrano MD#### CHELY, CDP, SED ####[address] [place] [address] Lab Director: Mauricio Irby MD Albumin/Glob Ratio1.4Woldnz4.0-2.5Peoples HospitalComment on above: Performed By: #### RA ####[address] [place], [place] [phone] Director: Casa Medrano MD#### CHELY, CDP, SED ####[address] [place] [address] Lab Director: Harsha Tristan Phos65 U/IQavrbc18-843JnmhjGreene Memorial Hospital on above:Performed By: #### RA ####[address] [phone] Director: Casa Medrano MD#### CP, CDP, SED ####[address] [place] [address] Lab Director: Mauricio Irby MDALT [Catalytic activity/Vol]14 U/BLvcrxu41-06BckgiPeoples HospitalComment on above:Performed By: #### RA ####[address] [place], [place] [phone] Director: Casa Medrano MD#### CP, CDP, SED ####[address] [place] [id number])[phone] Director: Mauricio Irby MDAnimyles gap [Moles/Vol]12 mmol/LNormal9-16[facility] HospitalComment on above:Performed By: #### RA ####[address] [place], [place] [phone] Director: Casa Medrano MD#### CP, CDP, SED ####[address] [place], [place] [address])[phone] Director: Mauricio Irby MDAST [Catalytic activity/Vol]11 U/VOnbdbn26-50Fop[address] [place] [address] Comment on above:Performed By: #### RA ####[address] [place], [place] [phone] Director: Casa Medrano MD#### CP, CDP, SED ####[address] [place] [id number])[phone] Director: Mauricio Irby MDBilirubin [Mass/Vol]mg/dLNormal 0.00-1.20[facility] HospitalComment on above:Performed By: #### RA ####[facility] [place], [place] [phone] Director: Casa Medrano MD#### CP, CDP, SED ####[address] [place] [id number])[phone] Director: Mauricio Irby MDBUN/CRE Ratio25 High9-20Peoples HospitalComment on above:Performed By: #### RA ####[address] [place] [address] Lab Director: Casa Medrano MD#### CHELY, CDP, SED ####[address] , [place] 9613683 Lab Director: SHARMAINE Tristanalcium [Mass/Vol] 8.9 mg/dLNormal8.6-10.4[facility] HospitalComment on above:Performed By: #### RA ####[address] [place] [address] Lab Director: Casa Medrano MD#### CHELY, CDP, SED ####[address] [place], [place] 4155183 Lab Director: SHARMAINE Tristanhloride [Moles/Vol]103 mmol/HAnwvdg58-184Acyfa Tiffin HospitalComment on above:Performed By: #### RA ####[address] [place], [place] [phone] Director: Casa Medrano MD#### CHELY, CDP, SED ####[address] [place] [address] Lab Director: Mauricio Irby MDCO2 [Moles/Vol]24 mmol/XOhaglz75-87NroyuPeoples HospitalComment on above:Performed By: #### RA ####[address] [place], [place] [phone] Director: Casa Medrano MD#### CP, CDP, SED ####[address] [place] [address] Lab Director: SHARMAINE Tristanreatinine [Mass/Vol]0.8 mg/dL Normal0.50-0.90Peoples HospitalComment on above:Performed By: #### RA ####[address] [address] Lab Director: Casa Medrano MD#### HAILEY [place], SED ####[address] [place], [place] 83[address]83 Lab Director: Mauricio Irby MDGFR/1.73 sq M.predicted among non-blacks MDRD (S/P/Bld) [Vol rate/Area]mL/min/{1.73_m2} Normal>60MerNorwalk HospitalComment on above:Result Comment: These results are not intended for [...] or following therapy that affects renal tubular secretion.Performed By: #### RA ####[address] [phone] Director: Casa Medrano MD#### HAILEY [place], SED ####[address] [place] [address] Lab Director: Mauricio Irby MDGlucose [Mass/Vol] 103 mg/mHIblx54-37ZxevvSalem Regional Medical CenterComment on above:Performed By: #### RA ####[address] [phone] Director: Casa Medrano MD#### HAILEY [place], SED ####[address] [place], [place] 9[address]83 Lab Director: GOMEZ Tristanotassium [Moles/Vol]4.1 mmol/LNormal3.7-5.3MercJohnson Memorial HospitalComment on above: Performed By: #### RA ####[address] [phone] Director: Casa Medrano MD#### CP, CDP, SED ####[address] [place] [address] Lab Director: GOMEZ Tristanrotein [Mass/Vol]7.1 g/dLNormal6.6-8.7Peoples HospitalComment on above:Performed By: #### RA ####[facility] [address] [place], [place] [address])[phone] Director: Casa Medrano MD#### CP, CDP, SED ####[address] [place], [place] 1779683 Lab Director: TAO Tristanodium [Moles/Vol]139 mmol/L Bnmlov231-477PhfstPeoples HospitalComment on above:Performed By: #### RA ####[address] [place] [address] Lab Director: Casa Medrano MD#### CP, CDP, SED ####[address] [place], [place] 8017483 Lab Director: Mauricio Irby MDUrea nitrogen [Mass/Vol]20 mg/dLNormal6-20Peoples HospitalComment on above: Performed By: #### RA ####[address] [place] [address] Lab Director: Casa Medrano MD#### CP, CDP, SED ####[address] [place], [place] 6712783 Lab Director: SHARMAINE Tristanomprehensive Metabolic Panelon 05-54-3568Coaauxd [Mass/Vol]3.9 g/dL3.5 - 5.2 g/dLBon [facility] HealthAlbumin/Globulin [Mass ratio]1.2 {ratio}1.0 - 2.5Bon [facility] HospitalALP [Catalytic activity/Vol]65 U/L35 - 104 U/LBon [facility] HealthALT [Catalytic activity/Vol]14 U/L10 - 35 U/LBon [facility] Samaritan HospitalAnion gap [Moles/Vol]12 mmol/L9 - 16 mmol/LBon [facility]y HealthAST [Catalytic activity/Vol]11 U/L10 - 35 U/LBon [facility] HealthBilirubin [Mass/Vol]mg/dL0.00 - 1.20 mg/dLBon [facility] Calcium [Mass/Vol]8.9 mg/dL8.6 - 10.4 mg/dLBon [facility] HealthChloride [Moles/Vol]103 mmol/L98 - 107 mmol/LBon [facility] HealthCO2 [Moles/Vol]24 mmol/L20 - 31 mmol/LBon SecVeterans Health AdministrationCreatinine [Mass/Vol]0.8 mg/dL0.50 - 0.90 mg/dLBon [facility]ours [facility] Samaritan HospitalEst, Glom Filt Rate- PINFBon [facility] HospitalComment on above: These results are not intended [...] therapy that affects renal tubular secretion. Glucose [Mass/Vol]103 mg/aKZxnq39 - 99 mg/dLBon [facility] Interpretation and review of laboratory resultsAbnormalBon [facility] Potassium [Moles/Vol]4.1 mmol/L3.7 - 5.3 mmol/LBon SecVeterans Health AdministrationProtein [Mass/Vol]7.1 g/dL6.6 - 8.7 g/dLBon [facility]ours [facility]ar[facility] HospitalSodium [Moles/Vol]139 mmol/L136 - 145 mmol/LBon SecVeterans Health AdministrationUrea nitrogen [Mass/Vol]20 mg/dL6 - 20 mg/dLBon [facility] HospitalUrea nitrogen/Creatinine [Mass ratio]25 mg/mg High9 - 20Bon [facility]aritan HospitalBon [facility]ours [facility] Samaritan HospitalCreatine Kinaseon 69-92-9561VK [Catalytic activity/Vol]20 U/SCwz70-329AekumPeoples HospitalComment on above:Performed By: #### KASSANDRA, TROPI, HAM ####[address] , [id number] Lab Director: Mauricio Irby MD Myoglobinon 98-42-0915Lwifrdlad [Mass/Vol]29 ng/jHBlodox25-80GkqfcPeoples HospitalComment on above:Performed By: #### KASSANDRA TROPI, HAM ####[address] , [place] Lab Director: DIPAK Tristanyoglobin, Bloodon 35-22-3819Ccbarxixp [Mass/Vol]29 ng/mL25 - 58 ng/mLBon [facility] - Sioux FallsNo Panel Informationon 37-46-3340Zeo [facility] HospitalRA Screenon 25-72-8250BO Screen<88Zwbcek6-68 Peoples HospitalComment on above:Performed By: #### RA ####[facility] [address] [place], [place] 6649508 Lab Director: Casa Medrano MD#### CHELY, HAILEY, SED ####[address] , [place] 1002883 Lab Director: LEONELA Tristanheumatoid Factor on 15-99-4058Ipkrysmsxd factor Nephelometry Qn (S)<10Bon [facility] - Sioux FallsSedimentation Rateon 23-77-0915ZXB Photometric method (Bld) [Velocity]8Bon [facility]. [facility]'s Hospitaldimentation Rate8 mm/HrNormal0-20Peoples HospitalComment on above:Performed By: #### RA ####[facility] [address] [place], [place] 1444308 Lab Director: Casa Medrano MD#### CHELY, CDP, SED ####[address] [place] [address] Lab Director: Jai Tristan on 49-76-6685Ewskryox I.cardiac High sensitivity method [Mass/Vol]ng/L0 - 14 ng/LBon [facility] on above:High Sensitivity Troponin values cannot be compared with other Troponin methodologies.Troponin, High Sens<6Normal 0-14MerHospital for Special Care on above:Result Comment: High Sensitivity Troponin values cannot be compared with other Troponin methodologies.Performed By: #### CK, TROPI, HAM ####[facility] [place] , [place] lab Director: Jatinder Tristan 27-91-9146Hqhty gap [Moles/Vol]11 mmol/L9 - 16 mmol/LBon [facility] HealthCalcium [Mass/Vol]8.7 mg/dL8.6 - 10.4 mg/dLBon [facility] Chloride [Moles/Vol]103 mmol/L98 - 107 mmol/LBon [facility] HealthCO2 [Moles/Vol]24 mmol/L20 - 31 mmol/LBon [facility] HospitalCreatinine [Mass/Vol] 0.6 mg/dL0.50 - 0.90 mg/dLBon [facility] HospitalEst, Glom Filt Rate- PINFBon [facility] on above: These results are not intended [...] therapy that affects renal tubular secretion. Glucose [Mass/Vol]90 mg/dL74 - 99 mg/dLBon [facility] HealthPotassium [Moles/Vol]4.1 mmol/L3.7 - 5.3 mmol/LBon [facility] HealthSodium [Moles/Vol] 138 mmol/L136 - 145 mmol/LBon [facility] HealthUrea nitrogen [Mass/Vol]7 mg/dL6 - 20 mg/dLBon [facility] HospitalUrea nitrogen/Creatinine [Mass ratio]12 mg/mg9 - 20Bon [facility] HospitalBasic Metabolic Profon 26-35-0286Bzhqt gap [Moles/Vol]11 mmol/LNormal9-16Peoples HospitalComment on above:Performed By: #### ROBCG, UMICAO, UAX #### [facility] [address] [place] [address] [place], [place] 7448283 Checker/Stocker: Mauricio Irby MDBUN/CRE Jmtgj03Apirgg2-12Imfoq [facility] Comment on above:Performed By: #### TON GAFFNEYO, UAX #### [address] [place], [place] 1366783 Checker/Stocker: SHARMAINE Tristanalcium [Mass/Vol]8.7 mg/dLNormal8.6-10.4MerNorwalk HospitalComment on above:Performed By: #### CATHIE GAFFNEYICAO, UAX #### [address] [place], [place] 7114483 Checker/Stocker: SHARMAINE Tristanhloride [Moles/Vol]103 mmol/YChhecg17-726JyranPeoples HospitalComment on above:Performed By: #### TON GAFFNEYO, UAX #### [address] [place], [place] 8166683 Checker/Stocker: Mauricio Irby MDCO2 [Moles/Vol]24 mmol/KVlrkag03-91MpvwdPeoples HospitalComment on above:Performed By: #### ROBCDragan, UMICAO, UAX #### [address] [place], [place] 3664983 Checker/Stocker: SHARMAINE Tristanreatinine [Mass/Vol]0.6 mg/dLNormal0.50-0.90MerNorwalk HospitalComment on above:Performed By: #### TON GAFFNEYO, UAX #### [address] [place] [address] Checker/Stocker: Mauricio Irby MDGFR/1.73 sq M.predicted among non-blacks MDRD (S/P/Bld) [Vol rate/Area]mL/min/{1.73_m2}Normal>60Peoples HospitalComment on above:Result Comment: These results are not intended for [...] or following therapy that affects renal tubular secretion.Performed By: #### SHELBY GAFFNEY, UAX #### [address] [place] [address] Checker/Stocker: Mauricio Irby MDGlucose [Mass/Vol]90 mg/qDRvgnfs44-21EkdtsSalem Regional Medical CenterComment on above:Performed By: #### SHELBY GAFFNEY, UAX #### [address] [place] [address] Checker/Stocker: GOMEZ Tristanotassium [Moles/Vol]4.1 mmol/LNormal3.7-5.3MMercy Health Clermont Hospital HospitalComment on above:Performed By: #### TON GAFFNEYO, UAX #### [address] [place] [address] Checker/Stocker: TAO Tristanodium [Moles/Vol]138 mmol/IWtujvc466-624NdmbqPeoples HospitalComment on above:Performed By: #### ROBCDragan UMTOSHAO, UAX #### [address] [place] [address] Checker/Stocker: Mauricio Irby MDUrea nitrogen [Mass/Vol]7 mg/dLNormal6-20Peoples HospitalComment on above:Performed By: #### YEIMY, MEGAN RYANX #### [facility] [address] [place] [address] Checker/Stocker: Mauricio Irby [facility] with Diffon 52-39-9574Rynsnfouq (Bld) [#/Vol] Bon [facility] HospitalBasophils/100 WBC (Bld)0 %0 - 2 %Stafford HospitalEosinophils (Bld) [#/Vol]0.11 10*3/uLBon [facility] Eosinophils/100 WBC (Bld)1 %1 - 4 %[facility]ord HospitalErythrocyte distribution width (RBC) [Ratio]13.5 %11.8 - 14.4 %[facility] Hematocrit (Bld) [Volume fraction]42.7 %36.3 - 47.1 %[facility] Hemoglobin (Bld) [Mass/Vol]14.2 g/dL11.9 - 15.1 g/dLBon [facility] Immature granulocytes (Bld) [#/Vol]0.04 10*3/uLBon SecVeterans Health AdministrationImmature granulocytes/100 WBC (Bld)0 %0Bon SecVeterans Health AdministrationInterpretation and review of laboratory resultsAbnormalBon [facility] HospitalLymphocytes/100 WBC (Bld)25 %24 - 43 %Stafford HospitalLymphocytes/100 WBC (Bld)2.58 %Bon [facility] CampusH (RBC) [Entitic mass]31.1 pg25.2 - 33.5 pgBon [facility] CampusHC (RBC) [Mass/Vol]33.3 g/dL28.4 - 34.8 g/dLBon [facility] CampusV (RBC) [Entitic vol]93.4 fL82.6 - 102.9 fLBon SecVeterans Health AdministrationMonocytes/100 WBC (Bld)6 %3 - 12 %Bon [facility] HospitalMonocytes/100 WBC (Bld)0.57 %[facility] HospitalNeutrophils/100 WBC (Bld)68 %High36 - 65 %[facility] HospitalNucleated RBC/100 WBC (Bld) [Ratio]0 %0.0 per 100 WBCStafford HospitalPlatelet mean volume (Bld) [Entitic vol]9.4 fL8.1 - 13.5 fLStafford HospitalPlatelets (Bld) [#/Vol]243 10*3/uLBon [facility] HospitalRBC (Bld) [#/Vol]4.57 10*6/uL3.95 - 5.11 m/uLStafford HospitalSegmented neutrophils/100 WBC (Bld)6.92 %Stafford HospitalWBC other (Bld) [#/Vol] 10.2Bon [facility] - Sioux FallsAbs. Basophil<0.03Normal 0.00-0.20Mer[facility] HospitalComment on above:Performed By: #### SHELBY GAFFNEY, UAX #### [address] [place] [address] Checker/Stocker: Jairon Tristan.Imm.Granulocyte0.04 k/uLNormal0.00-0.30MerSumma Health Wadsworth - Rittman Medical Center HospitalComment on above:Performed By: #### SHELBY GAFFNEY, UAX #### [address] [place] [address] Checker/Stocker: Jairon Tristan.Neutrophil (Seg)6.92 k/uLNormal1.50-8.10MerSumma Health Wadsworth - Rittman Medical Center HospitalComment on above:Performed By: #### SHELBY GAFFNEY, UAX #### [address] [place] [address] Checker/Stocker: Mauricio Irby MDBasophils/100 WBC (Bld)0 %Normal0-2Mer[facility] HospitalComment on above:Performed By: #### SHELBY GAFFNEY, UAX #### [address] [place] [address] Checker/Stocker: Mauricio Irby MDEosinophils (Bld) [#/Vol]0.11 10*3/uLNormal 0.00-0.44[facility] HospitalComment on above:Performed By: #### SHELBY GAFFNEY, UAX #### [address] [place], [place] [address] Checker/Stocker: Mauricio Irby MDEosinophils/100 WBC (Bld)1 %Normal1-4Peoples HospitalComment on above:Performed By: #### SHELBY GAFFNEY, UAX #### [address] [place], [facility]83 Checker/Stocker: Mauricio Irby MDErythrocyte distribution width (RBC) [Ratio]13.5 % Hbuzcs35.8-14.4[facility] HospitalComment on above:Performed By: #### SHELBY GAFFNEY, UAX #### [address] [place], [place] [address] Checker/Stocker: Mauricio Irby MDHematocrit (Bld) [Volume fraction]42.7 %Normal 36.3-47.1MMercy Health Clermont Hospital HospitalComment on above:Performed By: #### SHELBY GAFFNEY, UAX #### [address] [place], [place] [address] Checker/Stocker: Mauricio Irby MDHemoglobin (Bld) [Mass/Vol]14.2 g/dLNormal 11.9-15.1MMercy Health Clermont Hospital HospitalComment on above:Performed By: #### ROBCTON ArchibaldO, UAX #### [address] [place] [address] Checker/Stocker: Mauricio Irby MDImmature granulocytes/100 WBC (Bld)0 %Gnzbak0Jbpyz Tiffin HospitalComment on above:Performed By: #### YEIMY, TONO, UAX #### [address] [place], [place] 5516783 Checker/Stocker: Arleth Tristanmphocytes (Bld) [#/Vol]2.58 10*3/uLNormal 1.10-3.70[facility] HospitalComment on above:Performed By: #### SHELBY GAFFNEY, UAX #### [address] [place], [place] 5785483 Checker/Stocker: Anabella Tristanhocytes/100 WBC (Bld)25 %Edqper90-64Oossz Tiffin HospitalComment on above:Performed By: #### SHELBY GAFFNEY, UAX #### [address] [place], [place] 1712883 Checker/Stocker: HUA Tristan (RBC) [Entitic mass]31.1 qyPmzqik94.2-33.5 [facility] HospitalComment on above:Performed By: #### SHELBY GAFFNEY, UAX #### [address] [place], [place] 3505983 Checker/Stocker: HUA TristanC (RBC) [Mass/Vol]33.3 g/jVUoazpo22.4-34.8[facility] HospitalComment on above:Performed By: #### SHELBY GAFFNEY, UAX #### [address] [place], [place] 0319183 Checker/Stocker: MAURICIO Tristan (RBC) [Entitic vol]93.4 dZJobmmb75.6-102.9 [facility] HospitalComment on above:Performed By: #### SHELBY GAFFNEY, UAX #### [address] [place], [place] 8999483 Checker/Stocker: DIPAK Tristanonocytes (Bld) [#/Vol]0.57 10*3/uLNormal0.10-1.20 Peoples HospitalComment on above:Performed By: #### ROBCG, TONO, UAX #### [facility] [address] [place] [address] Dr. [place], [place] 3935283 Checker/Stocker: DIPAK Tristanonocytes/100 WBC (Bld)6 %Normal3-12Peoples HospitalComment on above:Performed By: #### ROBCDragan, TONO, UAX #### [address] [place], [place] 9607983 Checker/Stocker: Dontrell Tristanophil (Seg)68 %Ajah68-26UncasPeoples Hospital Comment on above:Performed By: #### TON GAFFNEYO, UAX #### [address] [place], [place] 0022683 Checker/Stocker: Mauricio Irby MDNRBC Automated0.0 per 100 WBCNormal0.0Peoples HospitalComment on above:Performed By: #### ROBCTON ArchibaldO, UAX #### [address] [place], [place] 1850383 Checker/Stocker: Tameka Tristan mean volume (Bld) [Entitic vol]9.4 fL Normal8.1-13.5Peoples HospitalComment on above:Performed By: #### ROBCDragan, CATHIEICAO, UAX #### [facility] [address] [place] [address] [place], [place] 1954283 Checker/Stocker: GOMEZ Tristanlatelets (Bld) [#/Vol]243 10*3/aPYokzzm562-290 Peoples HospitalComment on above:Performed By: #### UHCG, UMICAO, UAX #### [facility] [address] [place] [address] Checker/Stocker: ARIC Tristan ([facility]) [#/Vol]4.57 10*6/uLNormal3.95-5.11Peoples HospitalComment on above:Performed By: #### UHSHELBY MCMANUS, UAX #### [facility] [address] [place] [address] Checker/Stocker: MATTIE Tristan ([facility]) [#/Vol]10.2 10*3/uLNormal3.5-11.3MercMercy Health Clermont Hospital HospitalComment on above:Performed By: #### SHELBY GAFFNEY, UAX #### [facility] [address] [place] [address] [place] [address] Checker/Stocker: RYANN Tristan ABDOMEN PELVIS W IV CONTRASTon 23-24-8672WG ABDOMEN PELVIS W IV CONTRASTEXAMINATION: CT OF THE ABDOMEN AND PELVIS WITH [...] Signed by: Pedro Laguna MD 07/17/24 Final resultNormalMerWaterbury Hospital Abdomen and Pelvis W contrast Osbaldo . Minimal right hydroureteronephrosis with no downstream radiopaque stone, findings may represent recent passage of urolith. No nephrolithiasis. 2. Otherwise no acute CT findings in the abdomen or pelvis. [facility] RIS CONSOLIDATEDEXAMINATION: CT OF THE ABDOMEN AND PELVIS WITH [...] bony findings. No bulky inguinal lymphadenopathy. MHPN Pedro Park MD - 07/17/2024 EXAMINATION: CT OF THE [...] CT findings in the abdomen or pelvis. [facility] [employer] [facility] HospitalRadiology Study observation (narrative)[facility] [employer] [facility] Abdomen and Pelvis W contrast IVOrdered By: Pedro Lagnua on 07-17-2024 Kwame [facility] Work Phone: HCG, ,Urineon [id number] HCG ( test) Ql (U)NegativeNormalNEGMercy The Institute Of LivingComment on above:Result Comment: Specimens with hCG levels near the threshold of the test (25 mIU/mL) may give a negative or indeterminate result. In such cases, another test should be performed with a new specimen in 48-72 hours. If early is suspected clinically in this setting, correlation with quantitative serum b-hCG level is suggested. [employer] has confirmed the use of plasma for this test. This has not been cleared or approved by the U.S. Food and Drug Administration. The FDA has determined that such clearance is not necessary.Performed By: #### UHCG, SHELBY, UAX #### [facility] [address] [place] [address] Dr. [place], [place] 7587883 Checker/Stocker: Mauricio Irby MDHepatic Function Panelon 50-35-7275Rdmppqi [Mass/Vol]3.9 g/dL3.5 - 5.2 g/dLBon [facility] PubNativeAlbumin/Globulin [Mass ratio]1.1 {ratio}1.0 - 2.5Bon [facility] French CenterThe African Management Initiative (AMI) Barnesville HospitalALP [Catalytic activity/Vol]83 U/L35 - 104 U/LBon [facility] HospitalALT [Catalytic activity/Vol]14 U/L10 - 35 U/LBon [facility] HealthAST [Catalytic activity/Vol]15 U/L10 - 35 U/LBon [facility] CenterThe African Management Initiative (AMI) [facility] HospitalBilirubin [Mass/Vol]mg/dL0.00 - 1.20 mg/dLBon [facility] PubNativeBilirubin.direct [Mass/Vol]mg/dL0.00 - 0.30 mg/dLBon [facility] PubNative Bilirubin.indirect [Mass/Vol]Can not be calculated0.0 - 1.0 mg/dLBon [facility] CenterHarbor TechnologiesProtein [Mass/Vol]7.4 g/dL6.6 - 8.7 g/dLBon [facility] Lipaseon 79-65-9389Jopqbu [Catalytic activity/Vol]59 U/L13 - 60 U/LBon St. Mary[facility]S Hospitalours [facility] Good Samaritan HospitalLipase [Catalytic activity/Vol]59 U/UNrkkql68-56Ahuvk [facility] HospitalComment on above:Performed By: #### TON GAFFNEYO, UAX #### [address] [place], [place] 0[address]83 Checker/Stocker: Becky Tristan Profileon 12-45-6343Ezmhivm [Mass/Vol]3.9 g/dLNormal3.5-5.2Mer[facility]cano HospitalComment on above:Performed By: #### TON GAFFNEYO, UAX #### [address] [place], [place] 3649383 Checker/Stocker: Mauricio Irby MDAlbumin/Glob Ratio1.5Gqfgce9.0-2.5[facility] HospitalComment on above:Performed By: #### TON GAFFNEYO, UAX #### [address] [place], [place] 1956483 Checker/Stocker: Paco Tristanline Phos83 U/RUhdtwd88-589EulsgPeoples HospitalComment on above:Performed By: #### TON GAFFNEYO, UAX #### [address] [place] [address] Checker/Stocker: Mauricio Irby MDALT [Catalytic activity/Vol]14 U/XCemrsc93-81Keqmx Tiffin HospitalComment on above:Performed By: #### TON GAFFNEYO, UAX #### [address] [place] [address] Checker/Stocker: Mauricio Irby MDAST [Catalytic activity/Vol]15 U/GIgckhy74-42Xzpoq Tiffin HospitalComment on above:Performed By: #### ROBCCATHIE ArchibaldICAO, UAX #### [address] [place] [address] Checker/Stocker: Mauricio Irby MDBilirubin [Mass/Vol]mg/dLNormal0.00-1.20Peoples HospitalComment on above:Performed By: #### ROBCTON ArchibaldO, UAX #### [address] [place] [address] Checker/Stocker: Mirella Tristan, IndirectCan not be calculatedNormal 0.0-1.0Peoples HospitalComment on above:Performed By: #### YEIMY, TONO, UAX #### [address] [place] [address] Checker/Stocker: Mirella Tristan.indirect [Mass/Vol]mg/dLNormal0.00-0.30 Peoples HospitalComment on above:Performed By: #### SHELBY GAFFNEY, UAX #### [address] [place] [address] Checker/Stocker: Mauricio Irby MDProtein [Mass/Vol]7.4 g/dLNormal6.6-8.7Peoples HospitalComment on above:Performed By: #### ROBCDragan, TONO, UAX #### [address] [place] [address] Checker/Stocker: DIPAK Tristanicroscopic Urinalysison 34-95-0003Dgeylcfjtn cells LM.HPF (Urine sed) [#/Area]NoneStafford HospitalRBC LM.HPF (Urine sed) [#/Area]NoneStafford HospitalWBC LM.HPF (Urine sed) [#/Area]NoneBon Secours [facility] Good Samaritan HospitalBon Secours [facility]aritan HospitalNo Panel Informationon 56-60-7817Taj [facility] HospitalUA w/Reflex Cultureon 81-99-9539Btqdttsce, SemiQt,Ur NegativeNormalNEGPeoples HospitalComment on above:Performed By: #### ROBCGCATHIEICAO, UAX #### [facility] [address] [place], [place] [id number] Checker/Stocker: Radha Tristan, UrineNegativeCleveland Clinic Foundation Comment on above:Performed By: #### UHCG, UMICAO, UAX #### [facility] [address] [place], [place] [id number] Checker/Stocker: SHARMAINE Tristanlarity ()ClearNormalCLEARPeoples Hospital Comment on above:Performed By: #### UHCG, UMICAO, UAX #### [facility] [address] [place] [address] Dr. [place], [place] [id number] Checker/Stocker: SHARMAINE Tristanolor (YellowNoalYBrown Memorial Hospital Comment on above:Performed By: #### UHCG, UMICAO, UAX #### [facility] [address] [place] [address] Dr. [place], [place] [phone] Checker/Stocker: Mauricio Irby MDGlucose Ql (U)NegativeNormalNEGKettering Health Washington Township HospitalComment on above:Performed By: #### UHCG, UMICAO, UAX #### [facility] [address] [place] [address] Dr. [place], [place] [phone] Checker/Stocker: Mauricio Irby MDKetones Ql (U)NegativeNormalNEGMerSumma Health Wadsworth - Rittman Medical Center HospitalComment on above:Performed By: #### UHCG, UMICAO, UAX #### [facility] [address] [place], [place] [phone] Checker/Stocker: Mauricio Irby MDLeukocyte esterase Test strip Ql (U)NegativeNormal NEGMerNorwalk HospitalComment on above:Performed By: #### UHCG, UMICAO, UAX #### [facility] [address] [place] [address] Dr. [place], [place] 458[address]83 Checker/Stocker: Seema Tristantrite,UrNegativeNormalNEGPeoples Hospital Comment on above:Performed By: #### SHELBY GAFFNEY, UAX #### [facility] [address] [place] [address] [place] [address] Checker/Stocker: GOMEZ Tristan,Ur6.2Vwrxlu4.0-9.0Peoples HospitalComment on above:Performed By: #### TON GAFFNEYO, UAX #### [facility] [address] [place] [address] Dr. [place], [place] 5350[address] Checker/Stocker: GOMEZ Tristanrotein Ql (U)NegativeNormalNEGPeoples HospitalComment on above:Performed By: #### SHELBY GAFFNEY, UAX #### [address] [place] [address] Checker/Stocker: Anderson Tristan. Mccrory,Ur1.398Dpndpg5.010-1.020Peoples HospitalComment on above:Performed By: #### SHELBY GAFFNEY, UAX #### [address] [place], [place] [address]183 Checker/Stocker: Latonya Tristanbilinogen,UrNormalNormal0.0-1.0Peoples HospitalComment on above:Performed By: #### SHELBY GAFFNEY, UAX #### [facility] [address] [place] [address] [place] [address] Checker/Stocker: Mauricio Irby MDUrinalysis with Reflex to Cultureon 07-17-2024 Bilirubin Ql (U)NegativeNEGATIVEBon Secours St. [facility] HealthClarity (U)ClearClearBon SecVeterans Health AdministrationColor (U)YellowYellowBon SecVeterans Health AdministrationGlucose Test strip (U) [Mass/Vol]NegativeNEGATIVE mg/dLBon SecVeterans Health AdministrationHemoglobin Auto test strip Ql (U)NegativeNEGATIVEBon Secours St. [facility] HealthKetones (U) [Mass/Vol]NegativeNEGATIVE mg/dLBon [facility] HospitalLeukocyte esterase Test strip Ql (U)NegativeNEGATIVEBon SecWest Jefferson Medical Center HealthNitrite Ql (U)Negative NEGATIVEBon [facility] HospitalpH (U)6.5 [pH]5.0 - 9.0[facility] Protein (U) [Mass/Vol]NegativeNEGATIVE mg/dLBon [facility] HospitalSpecific gravity (U) [Rel density]1.011.010 - 1.020Bon [facility] HospitalUrobilinogen Qn (U)Normal0.0 - 1.0 EU/dLBon [facility] Urinalysis,Microon 36-26-3606Jnyfubzvyl cells LM Ql (Urine sed)NoneNormal0-25 Peoples HospitalComment on above:Performed By: #### TON GAFFNEY, UAX #### [facility] [address] [place] [address] Checker/Stocker: Jeffrey Tristan RBC'sNoneNohighsmith-rainey specialty hospital0-2MSalem Regional [facility] Comment on above:Performed By: #### SHELBY GAFFNEY UAX #### [facility] [address] [place] [address] Checker/Stocker: Jeffrey Tristan WBC'sNoneNormal0-5[facility] Comment on above:Performed By: #### [facility], UAX #### [facility] [address] [place] [address] Checker/Stocker: Jeffrey Tristan Preg (Lab)on 67-33-3737VWG ( test) Ql (U)NegativeNEGATIVEStafford HospitalComment on above:Specimens with hCG levels near the threshold of the test (25 mIU/mL) may give a negative or indeterminate result. In such cases, another test should be performed with a new specimen in 48-72 hours. If early is suspected clinically in this setting, correlation with quantitative serum b-hCG level is suggested. [employer] has confirmed the use of plasma for this test. This has not been cleared or approved by the U.S. Food and Drug Administration. The FDA has determined that such clearance is not necessary. Kawme Lau [facility]aritan HospitalMAMM DIAGNOSTIC UNILAT RT W CADon 65-16-6839VADN DIAGNOSTIC UNILAT RT W CADMAMM DIAGNOSTIC UNILAT RT W CAD SIER[place] LO 1980 [id number] EXAM: MAMM DIAGNOSTIC UNILAT RT W CAD, 05/24/2024 1:44 PM CLINICAL INDICATIONS: Abnormal mammogram, Patient returns for additional imaging of an abnormality visualized on screening mammography from [facility]. COMPARISON: Outside mammogram 05/10/2024 and [place] mammogram from 02/25/2022 TECHNIQUE: Supplemental views of [...] than 20% lifetime risk (specifically 20.1 % Gaillife time risk), MRI may be considered for supplemental screening. This is recommended to be performed at alternating 6 month intervals with screening mammography. Patient was given the results before leaving the department. Finalized by Dk Perez MD on 05/24/2024 2:09 PM 1 b MAMM 1 YRNormalProMedica Martin Luther King Jr. - Harbor HospitalCBC AND AUTO DIFFon 27-68-6489ABLGNHUY BASOPHIL0.0 X10E9/LNormal0.0-0.2ProMedica [facility] Luther King Jr. - Harbor HospitalComment on above: Performed By: #### CBCA, 3016-3, 2498-4, LIVR, 2731-8, 2132-9, 95275-3, HA1C #### [facility] ([id number]) [address], [address] [place], [place] [address]PDORFJFG NEUTROPHIL7.1 X10E9/LHigh1.5-6.6ProGraham Regional Medical CenterComment on above:Performed By: #### CBCA, 3016-3, 2498-4, LIVR, 2731-8, 2-9, 85027-0, HA1C #### [facility] ([id number]) [address], [address] [place], [place] [address]Nvmvceyeb/100 WBC (Bld)0.4 %NormalSelect Medical [facility] [place] Comment on above:Performed By: #### CBCA, 3016-3, 2498-4, LIVR, 1-8, 2131-9, 94778-7, HA1C #### [facility] ([id number]) [address], [address] [place], [place] [address]Pyzchdgjjuv (Bld) [#/Vol]0.1 10*3/uLNormal0.0-0.4ProGraham Regional Medical CenterComment on above:Performed By: #### CBCA, 3016-3, 2498-4, LIVR, 1-8, 2131-9, 46138-9, HA1C #### [facility] ([id number]) [address], [address] [place], [place] [address]Yhvxotwbmpu/100 WBC (Bld)0.6 %NormalSelect Medical [facility] Clinic [facility], [place] Comment on above:Performed By: #### CBCA, 3016-3, 2498-4, LIVR, 1-8, 2131-9, 67443-9, HANicole #### [facility] ([id number]) [address], [address] [place], [place] [address]Rrqgiherhgj distribution width (RBC) [Ratio]14.1 %Normal 11.5-15.0ProGraham Regional Medical CenterComment on above:Performed By: #### CBCA, 3016-3, 2498-4, LIVR, 2731-8, 2132-9, 31487-7, HA1C #### [facility] ([id number]) [address], [address] [place], [place] [address]Gfjijwibvs (Bld) [Volume fraction]42.9 %Rgaylh58-97KyeGwhusyGraham Regional Medical CenterComment on above:Performed By: #### CBCA, 3016-3, 2498-4, LIVR, 2731-8, 2132-9, 22645-2, HA1C #### [facility] ([id number]) [address], [address] [place], [place] [address]Utsknbfuvw (Bld) [Mass/Vol]14.5 g/dVYfihpf54.7-15.5PMercy Health Lorain HospitalComment on above:Performed By: #### CBCA, 3016-3, 2498-4, LIVR, 2731-8, 2132-9, 53517-4, HA1C #### [facility] ([id number]) [address], [address] [place], [place] [address]Hztrbimpcil (Bld) [#/Vol]2.5 10*3/uLNormal1.0-3.5PMercy Health Lorain HospitalComment on above:Performed By: #### CBCA, 3016-3, 2498-4, LIVR, 2731-8, 2132-9, 52537-6, HA1C #### [facility] ([id number]) [address], [address] [place], [place] [address]Pufltdmvxww/100 WBC (Bld)24.0 %NormalProGraham Regional Medical Center Comment on above:Performed By: #### CBCA, 3016-3, 2498-4, LIVR, 2731-8, 2132-9, 13409-2, HA1C #### [facility] ([id number]) [address], [address] [place], [place] [address]KZK (RBC) [Entitic mass]31.9 dnZdusdq06-28DeoEqksfdGraham Regional Medical CenterComment on above:Performed By: #### CBCA, 3016-3, 2498-4, LIVR, 2731-8, 2132-9, 44936-2, HA1C #### [facility] ([id number]) [address], [address] [place], [place] [address]RDPO (RBC) [Mass/Vol]33.9 g/mJEkxosv97-87VwpPzsywhGraham Regional Medical CenterComment on above:Performed By: #### CBCA, 3016-3, 2498-4, LIVR, 2731-8, 2132-9, 76982-0, HA1C #### [facility] ([id number]) [address], [address] [place], [place] [address]WPR (RBC) [Entitic vol]94 nBPjexwc94-358IagYuiikhSelect Medical Cleveland Clinic Rehabilitation Hospital, BeachwoodComment on above:Performed By: #### CBCA, 3016-3, 2498-4, LIVR, 1-8, 2131-9, 84902-1, HA1C #### [facility] ([id number]) [address], [address] [place], [place] [address]Tplctgqgv (Bld) [#/Vol]0.6 10*3/uLNormal0-0.9[facility] Hospital, BeachwoodComment on above:Performed By: #### CBCA, 3016-3, 2498-4, LIVR, 2731-8, 2132-9, 15060-8, HA1C #### [facility] ([id number]) [address], [address] [place], [place] [address]Gtpcnoauo/100 WBC (Bld)6.2 %NormalProGraham Regional Medical Center Comment on above:Performed By: #### CBCA, 3016-3, 2498-4, LIVR, 2731-8, 2-9, 09531-9, HA1C #### [facility] ([id number]) [address], [address] [place], [place] [address]Prkqgehelml/100 WBC (Bld)68.8 %NormalProNorthwest Surgical Hospital – Oklahoma Cityt Hospital Comment on above:Performed By: #### CBCA, 3016-3, 2498-4, LIVR, 2731-8, 2132-9, 46275-5, HA1C #### [facility] ([id number]) [address], [address] [place] [address]Fbpgmrib mean volume (Bld) [Entitic vol]8.3 fLNormal7-12 ProMPioneers Memorial HospitalComment on above:Performed By: #### CBCA, 3016-3, 2498-4, LIVR, 2731-8, 2132-9, 82354-7, HA1C #### [facility] ([id number]) [address], [address] [place] [address]Oqgbfevlf (Bld) [#/Vol]268 10*3/jDKwstqn031-245GipXlpkmf Fremont HospitalComment on above:Performed By: #### CBCA, 3016-3, 2498-4, LIVR, 2731-8, 2-9, 90618-5, HA1C #### [facility] ([id number]) [address], [address] [place], [place] [address]BOY COUNT4.55 X10E12/LNormal3.80-5.20[facility] [place] Comment on above:Performed By: #### CBCA, 3016-3, 2498-4, LIVR, 2731-8, 2131-9, 48818-9, HA1C #### [facility] ([id number]) [address], [address] [place] [address]TIF (Bld) [#/Vol]10.3 10*3/uLNormal4.0-11.0[facility], BeachwoodComment on above:Performed By: #### CBCA, 3016-3, 2498-4, LIVR, 2731-8, 2132-9, 85534-7, HA1C #### [facility] ([id number]) [address], [address] [place], [place] [address]JG UGI WITH ESOPHAGUSon 64-98-0720LR UGI WITH ESOPHAGUSFL UGI WITH ESOPHAGUS History: Preoperative assessment for [...] by Enrique Dubois DO on 12/02/2023 1:28 PMNormalProGraham Regional Medical CenterHGB A1C (GLYCO-HGB)on 99-00-6362Jzldfvf [Mass/Vol]100 mg/dLNormal [facility], BeachwoodComment on above:Performed By: #### CBCA, 3016-3, 2498-4, LIVR, 2731-8, 2131-9, 10309-0, HA1C #### [facility] ([id number]) [address], [address] [place], [place] [address]VtK9c (Bld) [Mass fraction]5.1 %Normal4.4-5.6[facility] Hospital, BeachwoodComment on above:Result Comment: NOTE ADA Guidelines Result HgbA1c Normal : less than 5.7 % Prediabetes : 5.7 % to 6.4 % Diabetes : > 6.4 % Use with caution in patients with abnormal hemoglobin variants as the half-life of red blood cells and in vivo glycation rates are affected.Performed By: #### CBCA, 3016-3, 2498-4, LIVR, 3861-8, 2-9, 81716-5, HA1C #### [facility] ([id number]) [address], [address] [place] [address]TXFFao 25-91-3085Bubw [Mass/Vol]87 ug/vWZznqoy57-196PluCvkeiv [facility]remont HospitalComment on above:Performed By: #### CBCA, 3016-3, 2498-4, LIVR, 1-8, 2131-9, 47258-4, HA1C #### [facility] ([id number]) [address], [address] [place] [address]UOZJU PANELon 94-24-4636Jxlcfas [Mass/Vol]3.6 g/dLNormal3.2-5.3 [facility] - Harbor HospitalComment on above:Performed By: #### CBCA, 3016-3, 2498-4, LIVR, 2730-8, 2131-9, 87812-9, HA1C #### [facility] ([id number]) [address], [address] [place] [address]RIK [Catalytic activity/Vol]58 U/RGrcecn69-849MihDafwaiGraham Regional Medical CenterComment on above:Performed By: #### CBCA, 3016-3, 2498-4, LIVR, 1-8, 2-9, 65657-3, HA1C #### [facility] ([id number]) [address], [address] [place] [address]RRK [Catalytic activity/Vol]14 U/LNormal0-31ProMedica [facility] Luther [facility] Jr. - Harbor HospitalComment on above:Performed By: #### CBCA, 3016-3, 2498-4, LIVR, 2731-8, 2132-9, 96297-5, HA1C #### [facility] ([id number]) [address], [address] [place] [address]AIW [Catalytic activity/Vol]14 U/LNormal0-41ProGraham Regional Medical CenterComment on above:Performed By: #### CBCA, 3016-3, 2498-4, LIVR, 2731-8, 2132-9, 77947-8, HA1C #### [facility] ([id number]) [address], [address] [place], [place] [address]Gihsxuuqs [Mass/Vol]0.3 mg/dLNormal0.3-1.2PMercy Health Lorain HospitalComment on above:Performed By: #### CBCA, 3016-3, 2498-4, LIVR, 2731-8, 2132-9, 25053-7, HA1C #### [facility] ([id number]) [address], [address] [place], [place] [address]Dikjhspmo.direct [Mass/Vol]0.0 mg/dLNormal0.0-0.4ProGraham Regional Medical CenterComment on above:Performed By: #### CBCA, 3016-3, 2498-4, LIVR, 2731-8, 2131-9, 10643-6, HA1C #### [facility] ([id number]) [address], [address] [place], [place] [address]Joozjtc [Mass/Vol]6.6 g/dLNormal6.0-8.0ProGraham Regional Medical CenterComment on above:Performed By: #### CBCA, 3016-3, 2498-4, LIVR, 2731-8, 2131-9, 58119-6, HA1C #### [facility] ([id number]) [address], [address] [place], [place] [address]Ywhivqnwjm.intact [Mass/Vol]on 13-04-6007JNX QTSMEM14 pg/mL Qzdxla53-25ZujJcidleGraham Regional Medical CenterComment on above:Performed By: #### CBCA, 3016-3, 2498-4, LIVR, 2731-8, 2132-9, 28482-6, HA1C #### [facility] ([id number]) [address] [place] [address], [address] [place], [place] [address]LSM Qnon 38-26-9191WVD9.50 uIU/mLNormal0.49-4.67[facility] on above:Performed By: #### ELLEN, 3016-3, 2498-4, LIVR, 1-8, 9, 11170-5, HA1C #### [facility] ([id number]) [address] [place] [address], [address] [place] [address]HRRTCWP B12on 64-50-5084Ltkdmkldx (Vitamin B12) [Mass/Vol]541 pg/rHKjjvbq752-399TgsKucbev Martin Luther King Jr. - Harbor HospitalComaspirus ontonagon hospital on above:Performed By: #### ELLEN, 3016-3, 2498-4, LIVR, 8, 2131-10, 92690-8, HA1C #### [facility] ([id number]) [address] [place] [address], [address] [place], [place] [address]Ztyjgux D+Metabolites [Mass/Vol]on 16-99-7821XCQXNRU D 25 HYD TOT24.3 ng/bXShb84-449SgiIudumrGraham Regional Medical CenterComaspirus ontonagon hospital on above:Result Comment: Vitamin D status 25 [place] Vitamin D Deficiency <20 ng/mL Insufficiency 20-29 ng/mL Sufficiency 30-100 ng/mL Toxicity >100 ng/mL NOTE: A pediatric reference range has not been established by the patrol driver of this kit. The [place] [employer] recommends a Vitamin D level of = or >20ng/mL in infants and children.Performed By: #### ELLEN, 3016-3, 2498-4, LIVR, 1-8, 9, 05583-7, HA1C #### [facility] ([id number]) [address] [place] [address], [address] [place] [address]NRZ with Auto Differentialon 14-11-5616Jpnvrvvvs (Bld) [#/Vol] 0.03 10*3/uLBON D[facility] HOSPITALOURS HOLZER HEALTH SYSTEMBasophils/100 WBC (Bld)0 %0 - [address] %[address] [facility] HOSPITALEosinophils (Bld) [#/Vol]0.07 10*3/uLBON [facility]OU[facility] Eosinophils/100 WBC (Bld)1 %1 - 4 %[address] MARY'S HOSPITALErythrocyte distribution width (RBC) [Ratio]12.6 %11.8 - 14.4 %[facility] Hematocrit (Bld) [Volume fraction]43.7 %36.3 - 47.1 %[facility] Hemoglobin (Bld) [Mass/Vol]14.3 g/dL11.9 - 15.1 g/dLBON [facility] Immature granulocytes (Bld) [#/Vol]0.04 10*3/uLBON SECOURS HOLZER HEALTH SYSTEMImmature granulocytes/100 WBC (Bld)0 %0B[facility] [facility]ARY'S HOSPITALInterpretation and review of laboratory resultsAbnormalBON [facility] REHABILITATIONLymphocytes/100 WBC (Bld)27 %24 - 43 %[facility]'S HOSPITALLymphocytes/100 WBC (Bld)2.50 %[facility] CENTERH (RBC) [Entitic mass]31.2 pg25.2 - 33.5 pgBON [facility] HOSPITALHC (RBC) [Mass/Vol]32.7 g/dL28.4 - 34.8 g/dLBON [facility] MERCY HOSPITALV (RBC) [Entitic vol]95.4 fL82.6 - 102.9 fLBON [facility] REHABIL[facility]ATIONMonocytes/100 WBC (Bld)5 %3 - 12 %[facility] HOSPITALMonocytes/100 WBC (Bld)0.44 %[facility]S HOSPITALNeutrophils/100 WBC (Bld)67 %High36 - 65 %[facility]S HOSPITALNucleated RBC/100 WBC (Bld) [Ratio]0.0 %0.[address] MARY'S HOSPITALPlatelet mean volume (Bld) [Entitic vol]8.9 fL8.1 - 13.5 fLBON [facility] HEALTHPlatelets (Bld) [#/Vol]264 10*3/uLBON [facility] FOR REHABILITATIONRBC (Bld) [#/Vol]4.58 10*6/uL3.95 - 5.11 m/uLBON [facility] REHABIL[facility]ATIONSegmented neutrophils/100 WBC (Bld)6.32 %[facility]ON [facility] REHABILITATIONWBC other (Bld) [#/Vol] 9.4BON [facility] HEALTHCT ABDOMEN PELVIS W IV CONTRAST Additional Contrast? Noneon 61-94-7043Pi acute abnormality identified. [facility] CONSOLIDATEDEXAMINATION: CT OF THE ABDOMEN AND PELVIS WITH [...] dedicated imaging follow-up. [facility] Ronni Eddy MD - 10/27/2022 EXAMINATION: CT OF THE [...] imaging follow-up. IMPRESSION: No acute abnormality identified. [facility] Stray BootsRadiology Study observation (narrative)[facility] Stray BootsCT ABDOMEN PELVIS W IV CONTRAST Additional Contrast? NoneOrdered By: Ronni Vaughn on 77-84-2208[facility] [employer] Work Phone: Comprehensive Metabolic Panelon 80-45-9577Npguvfg [Mass/Vol]4.0 g/dL3.5 - 5.2 g/dLBON [facility] PassbeeMediaAlbumin/Globulin [Mass ratio]1.1 {ratio}1.0 - 2.5BON [facility] PassbeeMediaALP [Catalytic activity/Vol]82 U/L35 - 104 U/LBON [facility] PassbeeMediaALT [Catalytic activity/Vol]11 U/L5 - 33 U/LBON [facility] PassbeeMediaAnion gap [Moles/Vol]8 mmol/LLow9 - 17 mmol/LBON [facility] PassbeeMediaAST [Catalytic activity/Vol]12 U/LNINF - 32 U/LBON [facility] PassbeeMediaBilirubin [Mass/Vol]0.2 mg/dLLow0.3 - 1.2 mg/dLBON [facility] PassbeeMediaCalcium [Mass/Vol]9.2 mg/dL8.6 - 10.4 mg/dLBON [facility] LOS ANGELESMitoo Sports Chloride [Moles/Vol]102 mmol/L98 - 107 mmol/LBON [facility] PassbeeMediaCO2 [Moles/Vol]27 mmol/L20 - 31 mmol/LBON [facility] PassbeeMediaCreatinine [Mass/Vol] 0.7 mg/dL0.5 - 0.9 mg/dLBON SECWhatSalon HEALTHGFR/1.73 sq M.predicted MDRD (S/P/Bld) [Vol rate/Area]- PINFBON [facility]HABILITATIONComment on above: These results are not intended [...] therapy that affects renal tubular secretion. Glucose [Mass/Vol]134 mg/vXYrqb27 - 99 mg/dLBON [facility] HEALTHPotassium [Moles/Vol]4.1 mmol/L3.7 - 5.3 mmol/LBON [facility] HEALTHProtein [Mass/Vol] 7.7 g/dL6.4 - 8.3 g/dLBON SECOU[facility]OL[facility]ER HEALTH SYSTEMSodium [Moles/Vol]137 mmol/L135 - 144 mmol/LBON [facility] IntenseDebateUrea nitrogen [Mass/Vol]8 mg/dL6 - 20 mg/dLBON [facility] IntenseDebateUrea nitrogen/Creatinine [Mass ratio]11 mg/mg9 - 20BON [facility] HOSPITALLactic Acidon [id number] (BldV) [Moles/Vol]1.6 mmol/L 0.5 - 2.2 mmol/LBON [facility]ITALBON [facility] HEALTHLipaseon [id number] [Catalytic activity/Vol]67 U/LHigh13 - 60 U/LBON SECV[facility] ADMINISTRATIONMitoo SportsNo Panel Informationon [id number] and review of laboratory resultsAbnormalBON [facility]Y HEALTHBON [facility] HEALTHUrinalysis with Microscopicon [id number] LM Ql (Urine sed)1+AbnormalNoneBON [facility]OSPITALBilirubin Ql (U)NegativeNEGATIVEBON [facility]Y HEALTHClarity (U) ClearClearBON [facility] HEALTHColor (U)YellowYellowBON [facility] HEALTH Epithelial cells LM.HPF (Urine sed) [#/Area]10 TO 20BON [facility] Glucose Test strip (U) [Mass/Vol]NegativeNEGATIVE mg/dLBON [facility] Hemoglobin Auto test strip Ql (U)NegativeNEGATIVEBON [facility] Interpretation and review of laboratory resultsAbnormalBON [facility] Ketones (U) [Mass/Vol]NegativeNEGATIVE mg/dLBON [facility]HABIL[facility]ATIONLeukocyte esterase Test strip Ql (U)NegativeNEGATIVEBON SECOURS ST. [facility]'S HOSPITALNitrite Ql (U) NegativeNEGATIVEBON SECOU[facility] ST[facility] HOSPITALpH (U)6.0 [pH]5.0 - 9.0B[address] [facility] HOSPITALProtein (U) [Mass/Vol]NegativeNEGATIVE mg/dLBON [facility]IL[facility]ATIONRBC LM.HPF (Urine sed) [#/Area]0 TO 2BON [facility]ATIONSpecific gravity (U) [Rel density]1.0101.010 - 1.020[address] [facility] HOSPITALUrobilinogen Qn (U)Normal 0.0 - 1.0 EU/dLBON [facility]HABIL[facility]ATIONWBC LM.HPF (Urine sed) [#/Area]0 TO 2BON [facility] ABD FLAT UP_PA Joyce 12-60-1303PU ABD FLAT UP_PA CHEXAMINATION: XR ABD FLAT UP_PA CH HISTORY: Abdominal [...] Electronically authenticated by: MAURICIO LYONS Date: 2022-03-25 08:01[facility] HospitalAMYLASEon [id number] [Catalytic activity/Vol]36 U/L Inszls66-782TcaSelect Medical Specialty Hospital - CincinnatiComment on above:Performed By: #### CMP, DARION, LIPA #### [facility] [address] [address] [address] Melecio ChadwickFRANKFORT REG[facility]AL [facility] AUTO DIFFon [id number] #0.0 103/ulNormal0.0-0.1The [facility]'S Medical CenterComment on above:Performed By: #### CBC #### [facility] [address] [place] [address] Dr. Melecio ChadwickBasophils/100 WBC (Bld)0.2 %Normal0.2-2.0[facility] Comment on above:Performed By: #### CBC #### [facility] [address] [place] [address] Dr. Melecio Husain #0.1 103/ulNormal0.0-0.7The [facility]'S Medical CenterComment on above: Performed By: #### CBC #### [facility] [address] [place] [address] Dr. Melecio Thorntonosinophils/100 WBC (Bld)1.1 %Normal0.9-7.0The [facility] Comment on above:Performed By: #### CBC #### [facility] [address] [place] [address] Dr. Melecio Thorntonrythrocyte distribution width (RBC) [Ratio]12.3 %Tggttl88.0-15.[address] [facility]'S Medical CenterComment on above:Performed By: #### CBC #### [facility] [address] [place] [address] Dr. Melecio ChadwickHematocrit (Bld) [Volume fraction]42.5 %Ndawue07.0-48.0The [facility]'S Medical CenterComment on above:Performed By: #### CBC #### [facility] [address] [place] [address] Dr. Melecio ChadwickHemoglobin (Bld) [Mass/Vol]14.3 g/fWRvmosw88.0-16.0The [facility]'S Medical CenterComment on above:Performed By: #### CBC #### [facility] [address] [place] [address] Dr. Melecio Uribe #0.03 10e3/ulNormal0.00-0.03The [facility]'S Medical CenterComment on above:Performed By: #### CBC #### [facility] [address] [place] [address] Dr. Melecio Uribe %0.3 %Normal0.0-0.5The [facility]S Medical CenterComment on above: Performed By: #### CBC #### [facility] [address] [place] [address] Dr. Melecio Sams #3.1 103/ulNormal1.2-3.8The [facility]'S Medical CenterComment on above:Performed By: #### CBC #### [facility] [address] [place] [address] Dr. Melecio Arredondohocytes/100 WBC (Bld)29.8 %Bvzyls65.5-60.0The [facility]S Medical CenterComment on above:Performed By: #### CBC #### [facility] [address] [place] [address] Dr. Melecio Long DIFF REQNONormalThe [facility] Rita'S Medical CenterComment on above: Performed By: #### CBC #### [facility] [address] [place] [address] Dr. Melecio Amador (RBC) [Entitic mass]31.0 ilYubnvp27.7-34.0The [facility]S Medical CenterComment on above:Performed By: #### CBC #### [facility] [address] [place] [address] Dr. Melecio Nelson (RBC) [Mass/Vol]33.6 g/eEUgfpny56.9-35.2The [facility] Medical CenterComment on above:Performed By: #### CBC #### [facility] [address] [place] [address] Dr. Melecio Nelson (RBC) [Entitic vol]92.2 lSMptpqv31.0-99.0The [facility]S Medical CenterComment on above:Performed By: #### CBC #### [facility] [address] [place] [address] Dr. Melecio Grey #0.6 103/ulNormal0.3-0.8The [facility]S Medical CenterComment on above:Performed By: #### CBC #### [facility] [address] [place] [address] Dr. Melecio Nazarioocytes/100 WBC (Bld)5.8 %Normal1.7-12.0The [facility] Comment on above:Performed By: #### CBC #### [facility] [address] [place] [address] Dr. Melecio SmallsUT #6.5 103/ulNormal1.4-6.5The [facility]S Medical CenterComment on above:Performed By: #### CBC #### [facility] [address] [place] [address] Dr. Melecio Smallsutrophils/100 WBC (Bld)62.8 %Mqgawq78.0-75.0The [facility]S Medical CenterComment on above:Performed By: #### CBC #### [facility] [address] [place] [address] Dr. Melecio ChadwickPlatelet mean volume (Bld) [Entitic vol]9.0 fLCritically low 9.5-13.5The [facility] Medical CenterComment on above:Performed By: #### CBC #### [facility] [address] [place] [address] Dr. Melecio ChadwickPLT268 103/wyLxaapj285-118Yll [facility]S Medical CenterComment on above: Performed By: #### CBC #### [facility] [address] [place] [address] Dr. Melecio ChadwickRBC4.61 106/ulNormal4.20-5.40The [facility]S Medical CenterComment on above:Performed By: #### CBC #### [facility] [address] [place] [address] Dr. Melecio ChadwickWBC10.4 103/ulNormal4.0-11.0The [facility] Medical CenterComment on above:Performed By: #### CBC #### [facility] [address] [place] [address] Dr. Melecio ChadwickLIPASEon 70-01-2549Pftepr [Catalytic activity/Vol]114.0 U/LNormal 73.0-393.0The [facility]S Medical CenterComment on above:Performed By: #### CMP, DARION, LIPA #### [facility] [address] [place] [address] Dr. Melecio ChadwickPROF 14(COMP METB)on 23-64-4949Ksrriiy [Mass/Vol]3.5 g/dLNormal 3.4-5.0The [facility] Medical CenterComment on above:Performed By: #### CMP, DARION, LIPA #### [facility] [address] [place] [address] Dr. Melecio ChadwickAlbumin/Globulin [Mass ratio]0.8 {ratio}NormalThe [facility]S Medical CenterComment on above:Performed By: #### CMP, DARION, LIPA #### [facility] [address] [place] [address] Dr. Melecio Benjamin [Catalytic activity/Vol]85 U/ZUeelor97-914Tma [facility] Medical CenterComment on above:Performed By: #### CMP, DARION, LIPA #### [facility] [address] [place] [address] Dr. Melecio Machuca [Catalytic activity/Vol]21 U/YBjuzdm05-59Zst [facility] Medical CenterComment on above:Performed By: #### CMP, DARION, LIPA #### [facility] [address] [place] [address] Dr. Melecio Reyes gap [Moles/Vol]11.6 mmol/LNormalThe [facility] Comment on above:Performed By: #### CMP, DARION, LIPA #### [facility] [address] [place] [address] Dr. Melecio ChadwickAST [Catalytic activity/Vol]15 U/IBvevqa43-66Xin [facility]ment on above:Performed By: #### CMP, DARION, LIPA #### [facility] [address] [place] [address] Dr. Melecio ChadwickBilirubin [Mass/Vol]0.3 mg/dLNormal0.2-1.0The [facility] Comment on above:Performed By: #### CMP, DARION, LIPA #### [facility] [address] [place] [address] Dr. Melecio ChadwickCalcium [Mass/Vol]8.8 mg/dLNormal8.5-10.1The [facility] Comment on above:Performed By: #### CMP DARION, LIPA #### [facility] [address] [address] [address] Melecio ChadwickChloride [Moles/Vol]102 mmol/KFwhfad68-564Zvh [facility] Comment on above:Performed By: #### CMP DARION, LIPA #### [facility] [address] [address] [address] Melecio ChadwickCO2 [Moles/Vol]28.5 mmol/HBqruau74.0-32.0The [facility] Comment on above:Performed By: #### CMP DARION, LIPA #### [facility] [address] [place] [address] Dr. Melecio ChadwickCreatinine [Mass/Vol]0.76 mg/dLNormal0.55-1.02The [facility] Medical CenterComment on above:Performed By: #### CMP DARION, LIPA #### [facility] [address] [place] [address] Dr. Melecio ThorntonGFR-AF CAMBODIAN>60Normal>=60The [facility] Medical CenterComment on above:Performed By: #### CMP DARION, LIPA #### [facility] [address] [place] [address] Dr. Melecio Escalera-NON AF CAMBODIAN>60Normal>=60The [facility] Medical CenterComment on above:Performed By: #### CMP, DARION, LIPA #### [facility] [address] [place] [address] Dr. Melecio ChadwickGlobulin (S) [Mass/Vol]4.2 g/dLNormalThe [facility] Medical CenterComment on above:Performed By: #### CMP, DARION, LIPA #### [facility] [address] [place] [address] Dr. Melecio ChadwickGlucose [Mass/Vol]97 mg/uWXlltvq69-228Kxv [facility] Comment on above:Performed By: #### CMP, DARION, LIPA #### [facility] [address] [place] [address] Dr. Melecio ChadwickPotassium [Moles/Vol]4.1 mmol/LNormal3.5-5.1The [facility] Comment on above:Performed By: #### CMP, DARION, LIPA #### [facility] [address] [place] [address] Dr. Melecio ChadwickProtein [Mass/Vol]7.7 g/dLNormal6.4-8.2The [facility] Comment on above:Performed By: #### CMP, DARION, LIPA #### [facility] [address] [place] [address] Dr. Melecio ChadwickSodium [Moles/Vol]138 mmol/XVzbkkf335-519Ceb [facility] Comment on above:Performed By: #### CMP, DARION, LIPA #### [facility] [address] [place] [address] Dr. Melecio ChadwickUrea nitrogen [Mass/Vol]9.0 mg/dLNormal7.0-18.0The [facility] CenterComment on above:Performed By: #### CMP, DARION, LIPA #### [facility] [address] [place] [address] Dr. Melecio Duke nitrogen/Creatinine [Mass ratio]11.8 mg/mgNormalThe [facility] CenterComment on above:Performed By: #### CMP, DARION, LIPA #### [facility] [address] [place] [address] Dr. Melecio ChadwickAMYLASEon 11-35-4946Qxbzfle [Catalytic activity/Vol]44 U/LNormal 25-115The [facility] CenterComment on above:Performed By: #### DARION, CMP, LIPA #### [facility] [address] [place] [address] Dr. Melecio Thurman AUTO DIFFon 65-08-4970AKVV #0.0 103/ulNormal0.0-0.1The [facility] Medical CenterComment on above:Performed By: #### CBC #### [facility] [address] [place] [address] Dr. Yilan ChangBasophils/100 WBC (Bld)0.2 %Normal0.2-2.0The [facility] Comment on above:Performed By: #### CBC #### [facility] [address] [place] [address] Dr. Melecio Husain #0.1 103/ulNormal0.0-0.7The [facility] Medical CenterComment on above: Performed By: #### CBC #### [facility] [address] [place] [address] Dr. Melecio Thorntonosinophils/100 WBC (Bld)1.5 %Normal0.9-7.0The [facility] Comment on above:Performed By: #### CBC #### [facility] [address] [place] [address] Dr. Melecio Thorntonrythrocyte distribution width (RBC) [Ratio]12.4 %Mtzrol54.0-15.[address] [facility] Medical CenterComment on above:Performed By: #### CBC #### [facility] [address] [place] [address] Dr. Melecio ChadwickHematocrit (Bld) [Volume fraction]41.8 %Jtiakp10.0-48.0The [facility] Medical CenterComment on above:Performed By: #### CBC #### [facility] [address] [place] [address] Dr. Melecio ChadwickHemoglobin (Bld) [Mass/Vol]13.2 g/tFPuwjtp32.0-16.0The [facility] Medical CenterComment on above:Performed By: #### CBC #### [facility] [address] [place] [address] Dr. Melecio Uribe #0.02 10e3/ulNormal0.00-0.03The [facility] Medical CenterComment on above:Performed By: #### CBC #### [facility] [address] [place] [address] Dr. Melecio Uribe %0.2 %Normal0.0-0.5The [facility] Medical CenterComment on above: Performed By: #### CBC #### [facility] [address] [address] [address] Melecio Sams #3.3 103/ulNormal1.2-3.8The [facility] Medical CenterComment on above:Performed By: #### CBC #### [facility] [address] [place] [address] Dr. Melecio Moralesmphocytes/100 WBC (Bld)38.0 %Ezvgcw76.5-60.0The [facility] Medical CenterComment on above:Performed By: #### CBC #### [facility] [address] [place] [address] Dr. Melecio ManUAL DIFF REQNONormalThe [facility] Medical CenterComment on above: Performed By: #### CBC #### [facility] [address] [place] [address] Dr. Melecio Nelson (RBC) [Entitic mass]30.9 drIvotbq36.7-34.0The [facility] Medical CenterComment on above:Performed By: #### CBC #### [facility] [address] [place] [address] Dr. Melecio Nelson (RBC) [Mass/Vol]31.6 g/gABkchem48.9-35.2The [facility] CenterComment on above:Performed By: #### CBC #### [facility] [address] [place] [address] Dr. Melecio Nelson (RBC) [Entitic vol]97.9 aZAwpvzr41.0-99.0The [facility] Medical CenterComment on above:Performed By: #### CBC #### [facility] [address] [place] [address] Dr. Melecio Grey #0.4 103/ulNormal0.3-0.8The [facility] Medical CenterComment on above:Performed By: #### CBC #### [facility] [address] [place] [address] Dr. Melecio Nazarioocytes/100 WBC (Bld)4.6 %Normal1.7-12.0The [facility] Comment on above:Performed By: #### CBC #### [facility] [address] [place] [address] Dr. Melecio SmallsUT #4.8 103/ulNormal1.4-6.5The [facility] on above:Performed By: #### CBC #### [facility] [address] [place] [address] Dr. Melecio Smallsutrophils/100 WBC (Bld)55.5 %Iixemw31.0-75.0The [facility] on above:Performed By: #### CBC #### [facility] [address] [place] [address] Dr. Melecio ChadwickPlatelet mean volume (Bld) [Entitic vol]9.7 fLNormal9.5-13.5The [facility] Medical CenterComaspirus ontonagon hospital on above:Performed By: #### CBC #### [facility] [address] [place] [address] Dr. Melecio ChadwickPLT258 103/hzUathtd254-225Avy [facility] on above: Performed By: #### CBC #### [facility] [address] [place] [address] Dr. Melecio ChadwickRBC4.27 106/ulNormal4.20-5.40The [facility] on above:Performed By: #### CBC #### [facility] [address] [place] [address] Dr. Melecio ChadwickWBC8.7 103/ulNormal4.0-11.0The [facility] on above: Performed By: #### CBC #### [facility] [address] [place] [address] Dr. Melecio ChadwickLIPASEon 33-98-9009Mpmnxf [Catalytic activity/Vol]119.0 U/LNormal 73.0-393.0The [facility] on above:Performed By: #### DARION, CMP, LIPA #### [facility] [address] [place] [address] Dr. Melecio ChadwickPROF 14(COMP METB)on 13-91-1938Ismsqeb [Mass/Vol]3.2 g/dL Critically low3.4-5.0The [facility] Medical CenterComment on above:Performed By: #### DARION, CMP, LIPA #### [facility] [address] [place] [address] Dr. Melecio ChadwickAlbumin/Globulin [Mass ratio]0.9 {ratio}NormalThe [facility] Medical CenterComment on above:Performed By: #### DARION, CMP, LIPA #### [facility] [address] [place] [address] Dr. Melecio Benjamin [Catalytic activity/Vol]76 U/EUjijur27-016Pxe [facility] Medical CenterComment on above:Performed By: #### DARION, CMP, LIPA #### [facility] [address] [place] [address] Dr. Melecio Machuca [Catalytic activity/Vol]18 U/MLmtmwa17-05Tqp [facility] Medical CenterComment on above:Performed By: #### DARION, CMP, LIPA #### [facility] [address] [place] [address] Dr. Melecio Reyes gap [Moles/Vol]11.6 mmol/LNormalThe [facility] Comment on above:Performed By: #### DARION, CMP, LIPA #### [facility] [address] [place] [address] Dr. Melecio ChadwickAST [Catalytic activity/Vol]14 U/LCritically aaf42-27Thv [facility] Medical CenterComment on above:Performed By: #### DARION, CMP, LIPA #### [facility] [address] [place] [address] Dr. Melecio ChadwickBilirubin [Mass/Vol]0.2 mg/dLNormal0.2-1.0The [facility] Comment on above:Performed By: #### DARION, CMP, LIPA #### [facility] [address] [place] [address] Dr. Melecio ChadwickCalcium [Mass/Vol]7.9 mg/dLCritically low8.5-10.1The [facility] CenterComment on above:Performed By: #### DARION, CMP, LIPA #### [facility] [address] [address] [address] Melecio ChadwickChloride [Moles/Vol]105 mmol/AUuwzod65-403Ctd [facility] Comment on above:Performed By: #### DARION, CMP, LIPA #### [facility] [address] [address] [address] Melecio ChadwickCO2 [Moles/Vol]25.8 mmol/KGjopbw37.0-32.0The [facility] Comment on above:Performed By: #### DARION, CMP, LIPA #### [facility] [address] [address] [address] Melecio ChadwickCreatinine [Mass/Vol]0.67 mg/dLNormal0.55-1.02The [facility] CenterComment on above:Performed By: #### DARION, CMP, LIPA #### [facility] [address] [place] [address] Dr. Majano ChangEGFR-AF CAMBODIAN>60Normal>=60The [facility] Medical CenterComment on above:Performed By: #### DARINO, CMP, LIPA #### [facility] [address] [address] [address] Melecio ThorntonGFR-NON AF CAMBODIAN>60Normal>=60The [facility] Medical CenterComment on above:Performed By: #### DARION, CMP, LIPA #### [facility] [address] [address] [address] Melecio ChadwickGlobulin (S) [Mass/Vol]3.6 g/dLNormalThe [facility] CenterComment on above:Performed By: #### DARION, CMP, LIPA #### [facility] [address] [address] [address] Melecio ChadwickGlucose [Mass/Vol]95 mg/aHHqwtwc56-948Hut [facility] Comment on above:Performed By: #### DARION, CMP, LIPA #### [facility] [address] [place] [address] Dr. Melecio ChadwickPotassium [Moles/Vol]3.4 mmol/LCritically low3.5-5.1The [facility] CenterComment on above:Performed By: #### DARION, CMP, LIPA #### [facility] [address] [address] [address] Melecio ChadwickProtein [Mass/Vol]6.8 g/dLNormal6.4-8.2[facility] Comment on above:Performed By: #### DARION, CMP, LIPA #### [facility] [address] [address] [address] Melecio ChadwickSodium [Moles/Vol]139 mmol/UAhbxbw745-369GxlSelect [facility] Comment on above:Performed By: #### DARION, CMP, LIPA #### [facility] [address] [address] [address] Melecio ChadwickUrea nitrogen [Mass/Vol]6.0 mg/dLCritically low7.0-18.0[facility] CincinnatiComment on above:Performed By: #### DARION, CMP, LIPA #### [facility] [address] [address] [address] Melecio Duke nitrogen/Creatinine [Mass ratio]9.0 mg/mgNormalThToledo HospitalComment on above:Performed By: #### DARION, CMP, LIPA #### [facility] [address] [address] [address] Melecio ChadwickIntraoperative Noteon 54-29-7352Byccipifvdreli Note [id number]#1.00[facility] Intraoperative Noteon 33-21-9397Zqcarliklzibms Note [id number]#1.00[facility] History and Physicalon 15-45-6094Vaugdkj and Physical [id number]#1.00[facility] Provider Orderson 90-79-4765Evbypsi [id number]#1.00[facility] CenterCoding Summaryon 59-61-5759Hjcdiu SummaryCODING DATE: 12/08/2016 [facility] STATUS: Home PAYOR: Commercial Insurance APC DESCRIPTION 5113 Level 3 Musculoskeletal Procedures ADMIT DX: REASON FOR VISIT DX: S83.242A Other tear of medial meniscus, current injury, left knee, initial encounter FINAL DX: PRINCIPAL: M22.42 Chondromalacia patellae, left knee SECONDARY: M94.9 Disorder of cartilage, unspecified PYMT PROC APC STATDESCRIPTION DOCTOR NAME DATE 14877 5113 J1 Arthroscopy, knee, ARIES HARO 12/05/2016 [...] By: Tamanna Ambrocio Date Saved: 12/08/2016 03:51 [facility] 96-35-5954Mvqrjxy Forms [id number]#1.00[facility] Discharge Instructionson 25-54-7493Ebblihqjj Instructions [id number]#1.00[facility] Intraoperative Noteon 98-92-6140Pqyhvgdpoenmyp Note [id number]#1.00[facility] CenterMAGR PACU Recordon 30-33-3798RLYR PACU RecordMAGR PACU Record Summary Primary Physician: ARIES HARO Finalized Date/Time: 12/08/16 10:49:55 Pt. Name: [place]/Sex: 1980 FEMALE Med Rec #: [id number] Physician: ARIES HARO Financial #: [id number] Pt. Type: D Room/Bed: / Admit/Disch: 12/05/16 08:43:35 - 12/05/16 14:02:00 Institution: PACU Case Times MAGR Entry 1 In PACU I 12/05/16 11:45:00 Ready for PACU I 12/05/16 12:40:00 Discharge Discharge from PACU 12/05/16 12:40:00 I Last Modified By: Sana Jarvis RN 12/08/16 10:49:52 General Comments: Awake, aware, vital signs stable on O2 at 2 Lmin per nc.Respiration deep and regular. ECG shows RSR. Denying discomfort. Toes of surgical foot warm, pink, with immediate capillary refill. IV infusing well. Discharge to nursing unit per Dr Salazar discharge criteria. Finalized By: Sana Jarvis RN Document Signatures Signed By: Sana Jarvis RN 12/08/16 10:49[facility] Preoperative Recordon [id number] Preoperative RecordMA Pre-Op Record Summary Primary Physician: ARIES HARO Finalized Date/Time: 12/08/16 10:20:04 Pt. Name: KAVITASIERRA/Sex: 1980 FEMALE Med Rec #: [id number] Physician: ARIES HARO Financial #: [id number] Pt. Type: D Room/Bed: / Admit/Disch: 12/05/16 [...] The patient remains free from s/s of injury . Patient/family express understanding of plan of care and participate in decisions affecting his or her perioperrative plan of care. Allergies documented appropriately. Patient identifiers and consent correct. General Comments: Pt arrives to w ambulatory. Pt denies any pain, cp, sob or cough. Ptdenies pacemaker/defibillator or sleep apnea. Pt has a cut on left lower leg from shaving, no active drainage noted or foul smelling. Dr. Haro in to visit with patient and checks razor cut on lower left leg......OK for surgery Finalized By: Marium Ledbetter RN Document Signatures Signed By: Marium Ledbetter RN 12/08/16 10:20[facility] HospitalMedication Managementon 45-31-8442Osedtipvau Management [id number]#1.00[facility] Telemetry Stripson 37-84-0027Jpzzjqgdx Strips [id number]#1.00OTCh[facility]ic[facility] Anesthesia Noteon 27-76-3887Rnudfzeiyc NotePatient: SIERRA WALLS : 36 years Sex: FEMALE : [birth year]Associated Diagnoses: NoneAuthor: Bunny Briggs MDPostoperative InformationPost Operative Note: OperativeDay.Anesthetic utilized: General.Health StatusAllergies:Allergic Reactions (All)Severity Not DocumentedDilaudid- Angio-oedema.Percocet 5/325- Nausea & vomiting.Problem list (past medical history):All ProblemsAnxiety / SNOMED CT 92740836 / ConfirmedPhysical ExaminationVS/MeasurementsVital Signs ( last 24 hrs) Last ChartedHeart Rate Peripheral H102 bpm (DEC 05:47)Resp Rate H 28 br/min (NOV 2710:47)SBP 133 mmHg (DEC 05:47)DBP 87 mmHg (DEC 05:47)SpO2 99 % (DEC 05:47)Review / ManagementCondition: Stable.AssessmentAnesthetic outcomeNo anesthetic complications noted.PlanTransfer/ Discharge: Patient can be discharged from PACU when criteria met.Condition good.[Electronically Signed on: 12/05/2016 12:07 EDT] Bunny Briggs MD[Verified on: 11/10 12:07 EDT] Bunny Briggs MD [facility] HospitalAnesthesia NotePatient: SIERRA WALLS : 36 years Sex: FEMALE : [...] DocumentedDilaudid- Angio-oedema.Percocet 5/325- Nausea & vomiting.Current medications:Home Medications(1) Activedesvenlafaxine 50 mg oral tablet, extended release 50 mg = 1 tab(s), PO, DailyProblem list (past medical history):All ProblemsAnxiety / SNOMED CT 43564102 / ConfirmedHistoriesFamily History:No family history items have been selected or recorded.Procedure history:Hysterectomy (860110386) in 2014 at 33 Years.Comments:11/28/2016 10:07 - Shayy Sylvester RNpartialAppendectomy (886168441) mj2539 at 32 Years.Tubal ligation (031609325) in 2004 at 24 Years.Cholecystectomy (01155597) in 1999 at 19 Years.Ear care (727099967).Comments:11/28/2016 10:06 - Shayy Sylvester RNtubes h5Ikclya History Alcohol Assessment Use: Never. Tobacco Assessment former smoker quit 2 yrs ago Tobacco Use:. Substance Abuse Assessment Substance use: Never..Social & Psychosocial RtbeehGvgeirf15/20/2017 Alcohol Use: NeverSubstance Abuse11/28/2016 Substance use: AypzhUyexbwj39/20/2017 Smoking tobacco use: former smoker quit 2 yrs ago.Physical ExaminationVS/MeasurementsVital Signs (last 24 hrs) Last ChartedHeart Rate [...] range of motion.Respiratory: Lungs are clear to auscultation.Cardiovascular: Regular rhythm.Neurologic: Alert, Oriented.Review / ManagementLaboratory ResultsPlanAmerican Society of Anesthesiologists#(ASA) physical status classification: Class II.Anesthetic Preoperative PlanAnesthesia: General.. Anesthetic plan, risks, benefits, and alternatives discussed with the patient and/or family. Patient verbalized understanding.[Electronically Signed on: 12/05/2016 10:25 EDT] Bunny Briggs MD[Verified on: 12/05/2016 10:25 EDT] Bunny Briggs MD [facility] Intraoperative Recordon [id number] Intraoperative RecordMAGR Intra-Op Record Summary Primary Physician: ARIES HARO Finalized Date/Time: 12/05/16 11:52:54 Pt. Name: SIERRA WALLS/Sex: 1980 FEMALE Med Rec #:[id number] Physician: ARIES HARO Financial #: [id number] Pt. Type: D Room/Bed: / Admit/Disch: 12/05/16 [...] Role Performed Surgeon - Primary Anesthesiologist of Pit Manager Record Time In 12/05/16 10:37:00 12/05/16 10:37:00 12/05/16 10:37:00 Time Out 12/05/16 11:30:00 12/05/16 11:48:00 12/05/16 11:48:00 Procedure Arthroscopy Knee(Left) Arthroscopy Knee(Left) Arthroscopy Knee(Left) Last Modified By: Leslie Tolentino RN, Stephanie RN Sauer, Stephanie RN 12/05/16 11:52:02 12/05/16 11:52:02 12/05/16 11:52:02 Entry 4 Entry 5 Entry 6 Case Attendee Ro Morrison RN, Leigh-Ann CST Nikolaus, Linda M Role Performed Pit Manager Cripple Chaser Scrub Personnel Time In 12/05/16 10:37:00 12/05/16 [...] 11:11:00 Stop 12/05/16 11:45:00 Anesthesia Type General SurgicalService Orthopedics Wound Class Clean Last Modified By: Leslie Tolentino RN 12/05/16 11:52:07 Post-Care Text: O.730 The patient's care is consistent with the individualized perioperative plan of [facility] Case Data MAGR Pre-Care Text: A.350.1 Classifies surgical wound Entry 1 Case Information ORMAGR OR Case Level Level 4 Wound Class Clean Specialty Orthopedics ASA Class 2 Diagnosis Preop Diagnosis INTERNAL DERANGEMENT Postop Same As Preop Yes LEFT KNEE Postop Diagnosis INTERNAL DERANGEMENT LEFT KNEE Last Modified By: Leslie Tolentino RN 12/05/16 11:17:16 Post-Care Text: O.760 Patient receives consistent and comparable care regardless of the setting Time Out MAGR Entry 1 Time out date/ time 12/05/16 11:09:00 All team members Yes have introduced themselves by name and role Surgeon, Yes Surgeon reviews Yes anesthesia, nurse critical or confirm patient, unexpected steps, site, procedure operative duration, anticipated blood loss Anesthesia team Yes Nursing team No reviews any reviews sterility patient- specific (including concerns indicator results) and equipment issues/concerns Antibiotic N/A Is essential Yes prophylaxis given imaging displayed? within the last 60 minutes Last Modified By: Leslie Tolentino RN 12/05/16 11:17:32 Skin Prep MAGR Pre-Care Text: A.30 Verifies allergies Im.270 Performs skin preparation Im.270.1 Implements protective measures to prevent skin and tissue injury due to chemical sources Entry 1 Skin Prep Syntegrity Prep Agents (Im.270) Povidone-IodinePrep By Ro Morrison RN Prep Area (Im.270) [...] Count Status Correct Final Count Final Counts Steffany Tolentino RN, Final Count Time 12/05/16 11:30:00 [...] Signatures Signed By: Leslie Tolentino RN 12/05/16 11:52[facility] Postoperative Recordon [id number] Postoperative RecordMAGR Phase II Record Summary Primary Physician: ARIES HARO Finalized Date/Time: 12/05/16 14:50:11 Pt. Name: SIERRA WALLS D.O.B./Sex: 1980 FEMALE Med Rec #:[id number] Physician: ARIES HARO Financial #: [id number] Pt. Type: D Room/Bed: / Admit/Disch: 12/05/16 08:43:35 - 12/05/16 14:02:00 Institution: Phase II Case Times MAGR Pre- Care Text: Patient is free from s/s of injury. Patient remains free from compromised physical state related to surgery or anesthesia. Patient comfort maintained. Patient/family verbalize understanding of discharge instructions. Entry 1 In PACU II 12/05/16 12:35:00 Ready for PACU II 12/05/16 14:00:00 Discharge Discharge fromPRCU 12/05/16 14:02:00 II Last Modified By: Sana [...] signs stable on O2 at 2 L minper NC. Respirations deep and regular. Complains of [...] Jarvis RN Document Signatures Signed By: Sana Jravis RN 12/05/16 14:50[facility] HospitalProgress Note - Nurseon 63-48-3757Uulhpvqo Note - NurseSpoke with pt and informed her to be here at 9am and NPO after MN, she verbalizes understanding.[Electronically Signed on: 12/04/2016 09:42 EDT] Shayy Sylvester RN[Verified on: 12/04/2016 09:42 EDT] Shayy Sylvester RNNoChildren's Hospital for Rehabilitation Vital Signs Date TimeVital SignValuePerforming YooxoqrpiScpiwqqu56-54-4893 11:00-0400Body .2 Monae PATEL Work Phone: [phone] [place], [place] 7128609-19-2025 11:00-0400Body mass index (BMI) [Ratio]38.85 kg/m2Suresh PATEL Work Phone: [phone]09-19-2025 11:00-0400Body nlbyue140.21 kgSuresh PATEL Work Phone: [phone])[address]268 [address]09-19-2025 09:57-0400Body aggbow575.2 Reta Brown MD Work Phone: [phone] [address]09-19-2025 09:57-0400Body mass index (BMI) [Ratio]39.99 kg/u6CwjfiOpal Brown MD Work Phone: [phone])18968 [address]09-19-2025 09:57-0400Body ypqltv758.85 kgOpal Brown MD Work Phone: [phone])[address]68 [address]09-08-2025 09:51-0400Body ydfooa622.[address]09-08-2025 09:51-0400Body mass index (BMI) [Ratio]42.09 kg/y2Zksjo[address]09-08-2025 09:51-0400Body eyrogffmavp85.59 [degF]Met[address]09-08-2025 09:51-0400Body bkyloi869.[address]09-08-2025 09:51-0400Diastolic blood oubmhcjl09 mm[Hg][address] 10-17-2024 09:51-0400Heart rate74 /min[address]09-08-2025 09:51-0400Respiratory rate18 /min[address]09-08-2025 09:51-0258QaX2% (BldA) [Mass fraction]100 %[address] 10-17-2024 09:51-0400Systolic blood uteilnff568 mm[Hg][address]07-25-2025 08:43-0400Body .2 Reta Brown MD Work Phone: [phone])[address]07-25-2025 08:43-0400Body mass index (BMI) [Ratio]42.01 kg/a2DvoygOpal Brown MD Work Phone: [phone])16268 [address]07-25-2025 08:43-0400Body kkugyc148.66 kgOpal Brown MD Work Phone: [phone])50368 [address]07-25-2025 08:43-0400Diastolic blood icxzgsyp015 mm[Hg]Opal Brown MD Work Phone: [phone])11168 [address]07-25-2025 08:43-0400Systolic blood ywtpzwmu608 mm[Hg]Opal Brown MD Work Phone: [phone])304-[address] [place], [place] 7128606-18-2025 10:00-0400Body mass index (BMI) [Ratio]40.41 kg/m2Suresh PATEL Work Phone: [phone])458-[address] [place], [place] 7128606-18-2025 10:00-0400Body jrubys828.03 kgSuresh PATEL Work Phone: [phone])227-[address] [place], [place] 7128606-08-2025 09:29-0400Diastolic blood mrgnaswn20 mm[Hg]Darron Rosario DO Work Phone: [facility]06-08-2025 09:29-5936YeH6% (BldA) [Mass fraction]96 %Darron Swade DO Work Phone: [facility] [employer]06-08-2025 09:29-0400Systolic blood mm[Hg]Darron Swade DO Work Phone: Bon [employer]06-08-2025 08:16-0400Body dednku958.2 cmStephen Swade DO Work Phone: [facility] [employer]06-08-2025 08:16-0400Body mass index (BMI) [Ratio]37.59 kg/u3Fgoqpyn Swade DO Work Phone: [facility] [employer]06-08-2025 08:16-0400Body ycufln705.86 kgStlyubovhen Swade DO Work Phone: [facility] [employer]06-08-2025 07:29-0400Body junnryadhag17.3 [degF]Darron Swade DO Work Phone: [facility] [employer]06-08-2025 07:29-0400Heart rate67 /minSyuliethen Swade DO Work Phone: [facility] [employer]06-08-2025 07:29-0400 Respiratory rate20 /minSyuliethen Swade DO Work Phone: [facility] [employer]05-16-2025 11:00-0400Body mass index (BMI) [Ratio]39.47 kg/m2Marysd Juanjose [employer] Work Phone: [facility] Mkzjuc93-25-7754 11:00-0400Body hlkivz149.31 kgEmdustin Sow [employer] Work Phone: [facility] Mwefit64-32-2592 09:00-0400Body mass index (BMI) [Ratio]39.47 kg/m2Emsd Sow [employer] Work Phone: [facility] Hospital[facility]lic[facility] Nglcxe68-35-1585 09:00-0400Body cgmmyw195.31 kgEmma Sow LD Work Phone: [phone])[address] [place], [place] 9893203-17-2025 09:00-0400Body mass index (BMI) [Ratio]38.54 kg/m2Emma Sow LD Work Phone: [phone])[address] [place], [place] 9893203-17-2025 09:00-0400Body fvkloz984.31 kgEmma Sow LD Work Phone: [phone])[address] [place], [place] 9893202-17-2025 15:00-0500Body mass index (BMI) [Ratio]38.24 kg/m2Emma Sow LD Work Phone: [phone])[address] [place], [place] 9893202-17-2025 15:00-0500Body mpapyd552.4 kgEmma Sow LD Work Phone: [phone])[address] [place], [place] 9893201-17-2025 11:00-0500Body mass index (BMI) [Ratio]39 kg/m2Emma Sow LD Work Phone: [phone])[address] [place], [place] 9893201-17-2025 11:00-0500Body plswee844.67 kgEmma Sow LD Work Phone: [phone])[address] [place], [place] 9893212-02-2024 11:00-0500Body mass index (BMI) [Ratio]39 kg/m2Emma Sow LD Work Phone: [phone])[address] [place], [place] 9893212-02-2024 11:00-0500Body kkahec103.67 kgEmma Sow LD Work Phone: 1(356)[address] [place], [place] 9893211-01-2024 08:51-0400Body uwklds665.2 cmEmma Sow LD Work Phone: [phone])[address] [place], [place] 9893211-01-2024 08:51-0400Body mass index (BMI) [Ratio]38.54 kg/m2Emma Sow LD Work Phone: [phone])[address] [place], [place] 9893211-01-2024 08:51-0400Body gyhsoi284.31 kgEmma Sow LD Work Phone: [phone] [place] [address] [employer] Dripem91-86-4732 08:42-0400Body .2 Reta Brown MD Work Phone: [phone] [place] [address] [employer] Grtkqi36-46-2856 08:42-0400Body mass index (BMI) [Ratio]39.19 kg/w7VjuguOpal Brown MD Work Phone: [phone] [place] [address] [employer] Kecejw86-24-3968 08:42-0400Body vkvohb880.21 kgOpal Brown MD Work Phone: [phone] [place] [address] [employer] Mqqeom76-78-1068 08:42-0400Diastolic blood leyzycnh00 mm[Hg]Opal Brown MD Work Phone: [phone] [place] [address] [employer] Nzyntv21-31-8245 08:42-0400Heart rate 84 /Marco Antonio Brown MD Work Phone: [phone] [place] [address] [employer] Pwptnl06-34-0191 08:42-0400Systolic blood lkqoxyty521 mm[Hg]Opal Brown MD Work Phone: [phone] [place] [address] [employer] Ehpbfd14-17-0179 20:03-0400Diastolic blood tjaczpei50 mm[Hg]Allison Callahan MD Work Phone: EYE [employer]09-18-2023 20:03-0718OtY9% (BldA) [Mass fraction]98 %Allison Callahan MD Work Phone: LON [employer]09-18-2023 20:03-0400Systolic blood otxcefch365 mm[Hg]Allison Callahan MD Work Phone: TON [employer]09-18-2023 15:17-0400Body jufgcf721.33 kgAllison Callahan MD Work Phone: SIG [employer]09-18-2023 15:15-0400Body kyshgbpsrww45.9 [degF]Allison Callahan MD Work Phone: CON [employer]09-18-2023 15:15-0400Heart aiwm677 /minAllison Callahan MD Work Phone: bon [facility]09-18-2023 15:15-0400 Respiratory rate18 /minAllison Callahan MD Work Phone: bon [facility] Encounters Encounter DateEncounter TypeCare ProviderFacilityStart: 11-13-2024 End: 13-67-4887Mpapozojc department patient visitDOCovenant Health Levelland HospitalStart: 11-13-2024 End: 90-40-9745Weuzuvhai encounterDolorBeauregard Memorial Hospital CenterComment on above:Post-op ProblemStart: 11-01-2024 End: 21-01-3771Tkpuhh Kateryna Kern RN Work Phone: [facility] Surgery-BariatricComment on above:History of sleeve gastrectomy (Primary Dx); Malnutrition following gastrointestinal surgery; Postsurgical malabsorption; Constipation, unspecified constipation typeStart: 10-28-2024 End: 41-30-3637Xmgwrjwxxuwq consultation with Oscar PATEL Work Phone: [facility] DieticiansComment on above: Morbid obesity (CMS-HCC) (Primary Dx); History of sleeve gastrectomy; Malnutrition following gastrointestinal surgery; Postsurgical malabsorption; Dietary counseling and surveillanceStart: 10-28-2024 End: 33-61-4456xfosgkpkvbJLSWUnityPoint Health-Saint Luke's HospitalStart: 10-28-2024 End: 77-93-2914Dczraij encounter procedureSlora Brown MD Work Phone: [facility] Physicians General SurgeryComment on above: Obesity, Class II, BMI 35-39.9 (Primary Dx); History of sleeve gastrectomyStart: 10-28-2024 End: 31-42-0675mwxzgmfeacWNPAV [facility] PPGStart: 10-24-2024 End: 83-23-3839Mjwwyxqbf encounterBelinda De Jesus [facility] Physicians General Surgery-BariatricStart: 10-20-2024 End: 34-62-4921Gazcgbwlal and management of inpatientSLORA Bedoya PRATTProCleveland Clinic [facility] HospitalStart: 10-18-2024 End: 32-93-8530Nulzkf outpatient visit 5 minutesWSanpete Valley Hospital Surg NurseProMedica Physicians General Surgery-BariatricComment on above:Obesity, Class III, BMI 40- 49.9 (morbid obesity) ([facility]) (Primary Dx); Hypertension, unspecified type; Gastroesophageal reflux disease, unspecified whether esophagitis present; Osteoarthritis, unspecified osteoarthritis type, unspecified site; Back pain, unspecified back location, unspecified back pain laterality, unspecified chronicity; Knee pain, unspecified chronicity, unspecified laterality; Edema, unspecified typeStart: 10-18-2024 End: 32-24-3992uidgwagtlfJDGWACBTony ChapaFairfield Medical Center HospitalStart: 10-17-2024 End: 11-40-0637fgarfptvssNRHPS [facility] HospitalStart: 10-17-2024 Encounter for other preprocedural examinationEMMA [facility] Centertart: 10-17-2024 End: 51-03-9587Bobkvna encounter procedureMetro Pat Provider [address] [place] [address] Pre-Admission Clinic On [facility] on above:Preop testing (Primary Dx); Morbid obesity ([facility])Start: 10-17-2024 End: 53-03-5677Jesradq encounter statusMetro [address] [place], [place] [address]tart: 31-91-8812msxllldhhxEBTFTHamilton County Hospital HospitalStart: 09-02-2024 End: 96-96-9866Ciuple outpatient visit 25 minutesOpal Brown MD Work Phone: [facility] Physicians General SurgeryComment on above: Obesity, Class III, BMI 40-49.9 (morbid obesity) ([facility]) (Primary Dx); Unable to assess patient's smoking status within the last 12 monthsStart: 09-02-2024 End: 41-22-3119kjdnrksevaKHNUP N [facility] PPGStart: 08-09-2024 End: 74-04-9219gflnninqlyNJHGDKNMiranda Ochoafin HospitalStart: 08-09-2024 End: 42-22-8565Spotarmjpx hospital visit by Yoni Aguillon [address] [place] [address] LABComment on above:Acute bronchitis, unspecified organismStart: 08-05-2024 End: 72-28-6138xszyqyqhanXHFANZH M HOYMercy Volcano HospitalStart: 08-05-2024 End: 18-18-1059Zaiseikgll hospital visit by Edward Rodriguez MD Work Phone: [facility] LABStart: 07-27-2024 End: 57-35-5467Xptmmeddwvpa consultation with Oscar PATEL Work Phone: [facility] DieticiansComment on above: Morbid obesity (CMS-HCC) (Primary Dx); Pre-bariatric surgery nutrition evaluationStart: 07-27-2024 End: 14-76-9467zbxrfjgpeaNQDSMahaska Health HospitalStart: 07-17-2024 End: 44-39-7874Ldxilpcgr department patient visitSyulietjanes Bedoya Maddystephanie Work Phone: [facility] DepartmentComment on above: Hydroureteronephrosis (Primary Dx); Right flank painStart: 06-24-2024 End: 91-90-9190Pdikkfsgrmrq consultation with Oscar PATEL Work Phone: [facility] DieticiansComment on above: Morbid obesity (CMS-HCC) (Primary Dx); Pre-bariatric surgery nutrition evaluationStart: 06-24-2024 End: 96-24-8926qiuwablgirALHMScotland Memorial Hospitaledo HospitalStart: 05-31-2024 End: 44-38-1198dacjgguisyOuktzaz R NILLFacility:GS BellevueStart: 05-26-2024 End: 01-92-0072Xugozymzegcy consultation with Oscar PATEL Work Phone: [facility] DieticiansComment on above: Morbid obesity (CMS-HCC) (Primary Dx); Pre-bariatric surgery nutrition evaluationStart: 05-26-2024 End: 81-02-7975mazrezkrpaCDOT MONTSt. Mary's [facility] HospitalStart: 05-24-2024 End: 20-98-4667qjurqfysosIMKWPNGWeisman Children's Rehabilitation [facility] HospitalStart: 75-96-1370hfoptghkhtHCGVORQAmerican Hospital Association PPGStart: 19-53-4787oeehcqbuaySjnhuxv NILLFacility:CANDY BellevueStart: 04-25-2024 End: 09-81-4037Tfhzhnffrjwg consultation with Oscar PATEL Work Phone: [facility] DieticiansComment on above: Morbid obesity (CMS-HCC) (Primary Dx); Pre-bariatric surgery nutrition evaluationStart: 04-25-2024 End: 58-33-7749mtvvwflbiaYWCU MONTGOMERYPMcCullough-Hyde [facility] Hospital HospitalStart: 03-28-2024 End: 77-22-1228Xaojbsoirzeu consultation with Oscar PATEL Work Phone: [facility] DieticiansComment on above: Morbid obesity (CMS-HCC) (Primary Dx); Pre-bariatric surgery nutrition evaluationStart: 03-28-2024 End: 53-79-9882hsxdnbftakSFVJ MONTGOPRESCOTT VA MEDICAL CENTERPREETIMcCullough-Hyde Memorial Hospital HospitalStart: 02-26-2024 End: 78-51-3155Haulpeevmtqr consultation with Oscar PATEL Work Phone: [facility] DieticiansComment on above: Morbid obesity (CMS-HCC) (Primary Dx); Pre-bariatric surgery nutrition evaluationStart: 02-26-2024 End: 31-71-6660eqorqbilgxJQPZ [facility] HospitalStart: 69-89-8548pzairicusiHIVEB N [facility] MANITOWOC COUNTYAURACleveland Clinic Akron General HospitalStart: 01-11-2024 End: 16-66-2518Gnpvnhzxjbpd consultation with Oscar PATEL Work Phone: [facility] DieticiansComment on above: Morbid obesity (CMS-HCC) (Primary Dx); Pre-bariatric surgery nutrition evaluationStart: 01-11-2024 End: 49-59-7406qtcxbpxkhtFTTOOhioHealth Grove City Methodist Hospitaltart: 12-11-2023 End: 41-85-6862Ydjpbinsbqbf consultation with Oscar Sow AMANDA Work Phone: [facility] DieticiansComment on above: Morbid obesity ([facility]) (Primary Dx); Pre-bariatric surgery nutrition evaluation; Obesity, Class II, BMI 35-39.9Start: 12-11-2023 End: 32-81-1729lryibjhmhtHBHIUnityPoint Health-Saint Luke's HospitalStart: 12-02-2023 End: 16-24-3304wdsvjwerezJXPAUNaval Hospital Oaklandtart: 11-27-2023 End: 12-33-1832Ldbmrt outpatient [facility] minutesOpal Brown MD Work Phone: [facility] Physicians General SurgeryComment on above: Obesity, Class II, BMI 35-39.9 (Primary Dx); Gastroesophageal reflux disease, unspecified whether esophagitis presentStart: 11-27-2023 End: 40-53-4313xhcbpzxtjnOAHADSt. Joseph's Health [facility] PPGStart: 10-27-2022 End: 36-38-9754Iijacixyx department patient visitAllison Callahan MD Work Phone: [facility] EDComment on above:Left flank pain (Primary Dx)Start: 04-21-2022 End: 72-01-3890ggzjfunqizPI FRANCIA HOY .Facility:U9Ojyas: 03-24-2022 End: 42-85-4032tuzvwewyptCG FRANCIA HOY .Facility:Z4Xmlai: 03-19-2022 End: 53-25-1345eclqjagjbrHM FRANCIA HOY .Facility:M6Fblrk: 12-05-2016 End: 58-31-2201Mivqwnk encounterGEORGE C STEPANICFacility:[facility] Start: 11-29-2016 End: 18-64-7804Ttdtpqb encounterGEORGE C STEPANICFacility:[facility] Procedures DateProcedureProcedure DetailPerforming ClinicianStart: 56-41-5575Nijrl metabolic panel calcium totalSaaugie Brown MD Work Phone: Start: 86-95-4387Lfzbo panelSlora Brown MD Work Phone: Start: 37-23-9480Oll routine ecg w/least 12 lds trcg only w/o i&rSaaugie Brown MD Work Phone: Start: 67-87-8247Ylngdv-up visitFollow-upSLORA BROWN Start: 52-35-2470K-reactive proteinFrancia Rodriguez MD Work Phone: Start: 52-47-8928Dadvghveniysx metabolic panelFrancia Rodriguez MD Work Phone: Start: 99-30-9962ZNKAHPIKJDima MD Work Phone: Start: 83-68-3796JIVSZCOVMDima MD Work Phone: Start: 08-05-2024 End: 59-78-7837Erpngwyrpmqnf metabolic panelFrancia Rodriguez MD Work Phone: Start: 40-69-3757Byjzmrlhhk factor quantitativeFrancia Rodriguez MD Work Phone: Start: 87-82-5991Lz abdomen & pelvis w/contrast materialStephen N Swade DO Work Phone: Start: 27-94-1576Oagrm metabolic panel calcium total Darron N Swade DO Work Phone: Start: 77-93-4109Miurarg function panelStephen N Swade DO Work Phone: Start: 67-45-8241Ijsezmxlnm microscopic onlyStephen N Swade DO Work Phone: Start: 73-57-4475Dnlqb test visual color cmprsn methsStephen N Swade DO Work Phone: Start: 24-45-7720Dq abdomen & pelvis w/contrast Franky Galarza PA-C Work Phone: Start: 82-12-0719Ovzrs dip stick/tablet reagent auto microscopyAllison Callahan MD Work Phone: start: 72-08-4466Ycyinerzqldcs metabolic panelAllison Callahan MD Work Phone: start: 99-90-1454Kyrsy depression screening assessment Opal Brown MD Work Phone: Plan of Treatment DateCare ActivityDetailAuthorStart: 28-99-4353Yspou panelLipidsBon [facility] Baremetrics [facility] HospitalStart: 50-31-8876Itnafero screenDiabetes screenStafford Hospital Start: 04-20-9459Vlqnk BMI ScreeningAdult BMI ScreeningSelect [facility] Start: 18-21-6919Xkiveff ScreeningTobacco ScreeningAvita Health System Ontario Hospitalca Health SystemStart: 84-84-3399Hrzla BMI ScreeningAdult BMI ScreeningAvita Health System Ontario Hospitalca Health SystemStart: 73-38-3263Odafyyr ScreeningTobacco ScreeningAvita Health System Ontario Hospitalca Health SystemStart: 32-41-2960Fknlc BMI ScreeningAdult BMI ScreeningAvita Health System Ontario Hospitalca [facility] SystemStart: 51-86-9106Snqkwnf ScreeningTobacco ScreeningAvita Health System Ontario Hospitalca Health SystemStart: 47-44-6686Ykreb BMI ScreeningAdult BMI ScreeningAvita Health System Ontario Hospitalca Health SystemStart: 40-63-0397Ldrpzim ScreeningTobacco ScreeningAvita Health System Ontario Hospitalca Health SystemStart: 86-25-4122Ocqks BMI ScreeningAdult BMI ScreeningAvita Health System Ontario Hospitalca Health SystemStart: 09-16-3148Ixbts BMI ScreeningAdult BMI ScreeningAvita Health System Ontario Hospitalca Health SystemStart: 22-82-6450Rcrsf BMI ScreeningAdult BMI ScreeningAvita Health System Ontario Hospitalca [facility] SystemStart: 36-96-1368Tnfss BMI ScreeningAdult BMI ScreeningProLake [facility] - Westca [facility] SystemStart: 35-72-4340Ykotn BMI ScreeningAdult BMI ScreeningProLake County Memorial Hospital - Westca [facility] SystemStart: 01-27-2025 End: 57-09-9753GTH W Auto Differential panel - BloodCBC auto differential Lab Routine History of sleeve gastrectomy Expected: 01/27/2025 (Approximate), Expires: 10/28/2025Idea2 Work Phone: Comment on above:Expected: 01/27/2025 (Approximate), Expires: 10/28/2025Start: 01-27-2025 End: 08-06-2800Bsurujzeedxego vitamin b-12Vitamin B12 Lab Routine History of sleeve gastrectomy Expected: 01/27/2025 (Approximate), Expires: 10/28/2025 [facility] PubNative SystemComment on above:Expected: 01/27/2025 (Approximate), Expires: 10/28/2025Start: 01-27-2025 End: 99-24-2336Aejulitk [Mass/volume] in Serum or PlasmaFerritin Lab Routine History of sleeve gastrectomy Expected: 01/27/2025 (Approximate), Expires: 10/10[facility] HospitalClicknation [facility] Straits HospitalComment on above:Expected: 01/27/2025 (Approximate), Expires: 10/28/2025Start: 01-27-2025 End: 62-86-7046ZvuzwlXamnlu Lab Routine History of sleeve gastrectomy Expected: 01/27/2025 (Approximate), Expires: 10/28/2025[facility] SystemComment on above:Expected: 01/27/2025 (Approximate), Expires: 10/28/2025Start: 01-27-2025 End: 98-70-6541Gizqqkmvmu A1c/Hemoglobin.total in BloodHemoglobin A1c Lab Routine History of sleeve gastrectomy Expected: 01/27/2025 (Approximate), Expires: 10/28/2025[facility] HospitalGENIAC [facility] SystemComment on above:Expected: 01/27/2025 (Approximate), Expires: 10/28/2025Start: 01-27-2025 End: 54-14-9978Skbo and TIBCIron and TIBC Lab Routine History of sleeve gastrectomy Expected: 01/27/2025 (Approximate), Expires: 10/28/2025[facility] HospitalGENIAC [facility] SystemComment on above:Expected: 01/27/2025 (Approximate), Expires: 10/28/2025Start: 01-27-2025 End: 25-54-3629Bwadl panelLiver panel Lab Routine History of sleeve gastrectomy Expected: 01/27/2025 (Approximate), Expires: 10/28/2025[facility] Comment on above:Expected: 01/27/2025 (Approximate), Expires: 10/28/2025Start: 01-27-2025 End: 98-36-6483Oitxike D 25 hydroxyVitamin D 25 hydroxy Lab Routine History of sleeve gastrectomy Expected: 01/27/2025 (Approximate), Expires: 10/28/2025 [facility] SystemComment on above:Expected: 01/27/2025 (Approximate), Expires: 10/28/2025Start: 53-35-9659Xqqmn BMI ScreeningAdult BMI Screening [facility] NHRMCtart: 20-99-7400Gwbgo BMI Follow Up PlanAdult BMI Follow Up PlanNovant Health / NHRMCtart: 57-59-1650Juvby BMI ScreeningAdult BMI ScreeningNovant Health / NHRMCtart: 12-01-2024 End: 82-51-4392Avelayvyzzjo consultation with anxjbfn7212/01/2024 10:00 AM EDT Telemedicine [facility] [address] [place] [phone] Suresh Sow, [address] [address] [facility] DieticiansStart: 79-50-7333Uwdpm BMI ScreeningAdult BMI Screening [facility] NHRMCtart: 10-28-2024 End: 34-26-1199Hktezhvhpcoz consultation with crfbcst6810/28/2024 11:30 AM EDT Telemedicine [facility] [address] [place] [phone] Suresh Sow, [address] [place] [address] [facility]eticiansStart: 10-28-2024 End: 59-02-7906Qlckjzj encounter kuhnyasin72/19/2025 10:00 AM EDT [facility] [address] [place] [phone] Opal Brown MD [address] [place] [address] [facility] SurgeryStart: 10-28-2024 End: 18-10-3467udeboqsgzl22/19/2025 9:30 AM EDT Support Visit [facility] [address] [phone] Suresh Sow LD [address] [place] [address] [facility]iansStart: 10-20-2024 End: 76-97-8444Dodqgnmno to same day surgery bevkww7310/20/2024 9:45 AM EDT - 10/20/2024 12:00 PM EDT Surgery [address] [phone] Opal Brown MD [address] [place] [address] LAPAROSCOPIC SLEEVE GASTRECTOMY [58182 (CPT )][facility]ier HospitalComment on above: LAPAROSCOPIC SLEEVE GASTRECTOMY [21973 (CPT )]Start: 10-20-2024 End: 43-72-4370Zzohdawgah jiaggbdjwmyp61/11/2025 9:45 AM EDT Anesthesia Event [facility] Surgery [address] [place] [phone] Trevor Monroe SRNAProAdamca [facility] SurgeryStart: 10-20-2024 End: 44-49-8045Digm gstrc rstrictiv px longitudinal gastrectomyLAPAROSCOPIC SLEEVE GASTRECTOMY MORBID OBESITY HYPERTENSION REFLUX 10/20/2024 9:45 AM EDT [facility]: 23-91-5327Azjehoncol hospital visit by kdhaejyty30/11/2025 9:45 AM EDT Hospital Encounter [facility] Surgery [address] [place] [phone] Opal Brown MD [address] [place] [address] [facility] SurgeryStart: 98-46-4684RWKER-19 Vaccine ( season)COVID-19 Vaccine ()[facility] SystemStart: 47-03-5374Nnomnzpia vaccinationInfluenza VaccineSelect Medical Specialty Hospital - [facility]umbull SystemStart: 83-62-2556Hnmrdzoel vaccinationStafford HospitalStart: 07-27-2024 End: 98-84-4539Ijoutytlprih consultation with ffwmpcc6907/27/2024 10:00 AM EDT Telemedicine [facility] [address] [place] [phone] Suresh Sow LD [address] [place] [address] [facility]Start: 06-24-2024 End: 04-43-8784Zsogmflydeaw consultation with srvvbfb4306/24/2024 11:30 AM EDT Telemedicine [facility] [address] [place] [phone] Suresh Sow LD [address] [place] [address] [facility]Start: 05-26-2024 End: 08-40-2607Agibjygdmegp consultation with xatfevo2805/26/2024 10:00 AM EDT Telemedicine [facility] [address] [address] [facility] [place] [phone] Suresh Sow LD [address] [place] [address] [facility]iansStart: 71-46-7340QCnV,Tdap and Td Vaccines (2 - Td or Tdap) DTaP,Tdap and Td Vaccines (2 - Td or Tdap)[facility] SystemStart: 65-93-6661GOhZ/Tdap/Td vaccine (2 - Td or Tdap)DTaP/Tdap/Td vaccine (2 - Td or Tdap)[facility] HospitalStart: 04-25-2024 End: 24-39-8068Zhloetqhkcre consultation with qqwmhxi5604/25/2024 9:30 AM EDT Telemedicine [facility] [address] [phone] Suresh Sow, AMANDA [address] [place] [address] [facility]Start: 03-28-2024 End: 74-53-9283Atklbizrfzbv consultation with shkacnz4803/28/2024 3:30 PM EST Telemedicine [facility] [address] [phone] Suresh Sow LD [address] [place] [address] [facility]iansStart: 03-08-2024 End: 50-37-6266Cdgqfjd encounter ixkwrhvwf32/28/2025 9:00 AM EST Appointment [facility] [address] [place] [phone] Obesity, Class II, BMI 35-39.9[facility] - Total RehabComment on above:Obesity, Class II, BMI 35-39.9Start: 02-11-2024 End: 89-60-6258Brzjmnnneusc consultation with szpseop3802/11/2024 10:30 AM EST Telemedicine [facility] [address] [place] [phone] Suresh Sow, AMANDA [address] [place] [address] [facility]Start: 01-11-2024 End: 54-37-8884Ajyksqtnahfw consultation with nehyblw9601/11/2024 12:00 PM EST Telemedicine [facility] [address] [place] [phone] Suresh Sow LD [address] [place] [address] [facility]Start: 12-11-2023 End: 67-17-3409Hcanivznsema consultation with zphacsi4512/11/2023 9:00 AM EDT Telemedicine [facility] [address] [place] [address] Suresh Sow LD [address] [place] [address] [facility]iansStart: 11-27-2023 End: 22-93-5740LW Gastrointestinal tract upper Views W air contrast PO and W barium contrast POFluoroscopy upper GI with esophagus Imaging Routine Obesity, Class II, BMI 35-39.9 Expected: 11/27/2023, Expires: 11/26/2024[facility] HospitalComment on above:Expected: 11/27/2023, Expires: 11/26/2024Start: 79-80-0619JTKLG-19 Vaccine ()COVID-19 Vaccine ()[facility] HospitalStart: 24-74-4627BLKCD-19 Vaccine ()COVID-19 Vaccine ()[facility] NHRMCtart: 36-80-9913EDETK-19 Vaccine ( season)COVID-19 Vaccine ( season)[facility] NHRMCtart: 55-14-1266Zcffsmkgn vaccinationInfluenza VaccineNovant Health / NHRMCtart: 92-39-7923Vldbaaa ScreeningTobacco ScreeningSelect Medical Specialty [facility] SystemStart: 05-51-0052Uhlprcdscx ScreeningDepression ScreeningNovant Health / NHRMCtart: 13-96-1351Smtrdnsve vaccinationFlu vaccine (#1)[facility] Hospitalart: 49-55-4758Qllha panelLipidsBON [facility] Hospitalart: 50-73-5177Gjmoydpwl for malignant neoplasm of breast Breast cancer screenCentra [facility]: 99-92-6644Wajxhggle for malignant neoplasm of cervixSentara Norfolk General Hospitalart: 29-55-8422Azfcnyrlg for malignant neoplasm of cervixPap smearBON SECOURS ST. MARY'S HOSPITALStart: 49-96-4595JQgV/Tdap/Td vaccine (1 - Tdap)DTaP/Tdap/Td vaccine (1 - Tdap)[facility] Hospitalart: 18-74-0427Hogxdzwgk B vaccine (1 of 3 - 19+ 3-dose series)Hepatitis B vaccine (1 of 3 - 19+ 3-dose series)[facility] Start: 96-71-6185Fnmmy BMI Follow Up PlanAdult BMI Follow Up PlanNovant Health / NHRMCtart: 34-33-4391Fghfscxwf C screeningHepatitis C screenBON [facility] Hospitalart: 51-57-0182CRU screeningHIV screenBON SECOURS ST. [facility] Start: 11-09-7732Syslsrgnr vaccine (1 of 2 - 13+ 2-dose series)Varicella vaccine (1 of 2 - 13+ 2-dose series)[facility] Hospitalart: 07-98-1731Mhkinnmcmq ScreenDepression ScreenSentara Norfolk General Hospitalart: 78-94-5247Zhwrtiefi vaccine (1 of 2 - 2-dose childhood series)Varicella vaccine (1 of 2 - 2-dose childhood series)[facility]: 74-84-0149ILZPZ-19 Vaccine (#1) COVID-19 Vaccine (#1)[facility]: 56-92-3252Jzakblneu B vaccine (1 of 3 - 3-dose series)Hepatitis B vaccine (1 of 3 - 3-dose series)[facility]: 49-35-7518Alojmrf CounselingTobacco Counseling [facility] End: 24-62-7676KRF W Auto Differential panel - BloodCBC auto differential Lab Routine Obesity, Class II, BMI 35-39.9 1 Occurrences starting 11/27/2023 until 11/26/2024Idea2 Work Phone: Comment on above:1 Occurrences starting 11/27/2023 until 11/26/2024 End: 56-84-6418Fleildo, UrineBON [facility] Work Phone: comment on above:One Time for 1 Occurrences starting 10/27/2022 until 10/27/2022 End: 18-07-2394Gqwwqddxisaifh vitamin b-12Vitamin B12 Lab Routine Obesity, Class II, BMI 35-39.9 1 Occurrences starting 11/27/2023 until 11/26/2024[facility] HospitalClicknation [facility]its HospitalComment on above:1 Occurrences starting 11/27/2023 until 11/26/2024 End: 74-47-1707Rkhxdutcow A1c/Hemoglobin.total in BloodHemoglobin A1c Lab Routine Obesity, Class II, BMI 35-39.9 1 Occurrences starting 11/27/2023 until 11/26/2024[facility] HospitalClicknation SystemComment on above:1 Occurrences starting 11/27/2023 until 11/26/2024 End: 21-55-1557Gkjg [Mass/volume] in Serum or PlasmaIron Lab Routine Obesity, Class II, BMI 35-39.9 1 Occurrences starting 11/27/2023 until 11/26/2024 [facility] HospitalCompetitive Power Ventures SystemComment on above:1 Occurrences starting 11/27/2023 until 11/26/2024 End: 84-31-1238Obmid panelLiver panel Lab Routine Obesity, Class II, BMI 35-39.9 1 Occurrences starting 11/27/2023 until 11/26/2024[facility] Comment on above:1 Occurrences starting 11/27/2023 until 11/26/2024 End: 27-89-2342Ghwgmhpj and Metabolites, Random, UrineNicotine and Metabolites, Random, Urine Lab Routine Unable to assess patient's smoking status within the last 12 months 1 Occurrences starting 09/02/2024 until 09/02/2025[employer] Work Phone: Comment on above:1 Occurrences starting 09/02/2024 until 09/02/2025 End: 64-69-1542Mhnhfsscsuo Hormone, intactParathyroid Hormone, intact Lab Routine Obesity, Class II, BMI 35-39.9 1 Occurrences starting 11/27/2023 until 11/26/2024ProBlue Dot WorldComment on above:1 Occurrences starting 11/27/2023 until 11/26/2024Thiamin (Vitamin B1), WBThiamin (Vitamin B1), WB Lab Routine Morbid obesity ([facility]) 10/17/2024 10:23 AM EDTPro[facility] Work Phone: End: 02-36-1267Wqyclut (Vitamin B1), WBThiamin (Vitamin B1), WB Lab Routine History of sleeve gastrectomy 1 Occurrences starting 10/28/2024 until 10/28/2025 [facility] CenterReorg ResearchComment on above:1 Occurrences starting 10/28/2024 until 10/28/2025 End: 58-19-9044Gzfhwnmaagg [Units/volume] in Serum or PlasmaTSH Lab Routine Obesity, Class II, BMI 35-39.9 1 Occurrences starting 11/27/2023 until 11/26/2024[facility] SystemComment on above:1 Occurrences starting 11/27/2023 until 11/26/2024 End: 20-74-6523Dgyjmov D 25 hydroxyVitamin D 25 hydroxy Lab Routine Obesity, Class II, BMI 35-39.9 1 Occurrences starting 11/27/2023 until 11/26/2024 [facility] CenterInnoCentive SystemComment on above:1 Occurrences starting 11/27/2023 until 11/26/2024 End: 60-56-8118ZR Chest 2 [facility] Work Phone: Comment on above:1 Occurrences starting 08/09/2024 until 08/09/2024 Immunizations Immunization DateImmunizationNotesCare QwhehdqkKtcchuiw90-83-7175iuetpknwa virus vaccine, unspecified formulationMetro 19[facility]11-02-2021 influenza virus vaccine, unspecified formulationSlora Brown MD Work Phone: [facility] Payers DatePayer CategoryPayerPolicy [id number] Managed Care - POS [id number] Health Insurance [id number] Care Other (unspecified)[id number] [id number]-0504NzdgothM0324100308-07-1314Mcfuflb [id number] 2.0.1.453055.3.57[id number] 2.0.1.813511.3.57[id number] 2.0.1.018989.3.579.2.[id number] 2.840.1.788033.3.57[id number] 2.0.1.022958.3.579.2.42489-88-3174Oyjdzjc83160834 2.840.1.791261.3.579.2.19934-19-4651Fjdvzxu74239224 2.840.1.228499.3.579.2.13773-41-0662Rnglkmg18035281 2.0.1.377119.3.57[id number] 2.840.1.065984.3.579.[id number] 2.0.1.891647.3.579.2.242890-28-7591Ebvtbyo639598527 2.0.1.229373.3.579.[id number] 2..1.499213.3.579.2.[id number] 2..1.636438.3.579.2.6[id number] 2..1.507138.3.579.2.982439-51-3279Hliwghe443709307 2..1.126963.3.579.2.620277-04-6449Ftnnioj312898366 2..1.851874.3.579.2.348797-37-1983Kfprrnh830875572 2..1.113646.3.579.2.317053-38-8057Mecpcst714016373 2..1.348552.3.579.2.567743-34-1273Tqfrwxl347845209 2.0.1.288191.3.579.2.154753-05-2132Ditigqh009534911 2.0.1.740415.3.579.2.7814[id number] 2.0.1.958551.3.579.2.638870-90-5064Bysgpbo779230099 2.840.1.149732.3.579.2.3[id number] 2.840.1.333037.3.579.2.[id number] 2.840.1.889616.3.579.2.226484-47-3830Xyvqaeg20608737 2.840.1.270375.3.579.2.787463-09-3544Vhxrbvv187735443 2.0.1.646060.3.579.2.849704-48-8943Brmeddq125230133 2.840.1.978380.3.579.2.073921-01-6413Hdkqczr954867524 2.0.1.039611.3.579.2.423130-22-8515Fqtzmzy525551481 2.0.1.988298.3.579.2.346779-12-3843Rflwlyj99679076 2..1.261816.3.579.2.925895-01-9331Aaepixg59195041 2.0.1.737632.3.579.2.420441-37-0541Dylcwwr15461903 Social History DateTypeDetailFacilityTobacco smoking status NHISTobacco smoking consumption unknownBON SECOURS ST. MARY'S HOSPITALStart: 87-69-3582Mmt Assigned At BirthNot on file [facility]art: 03-22-2020 End: 16-00-5383Lbskdt identityNot on fileSentara Norfolk General Hospitalart: 69-52-5737Drdumnu smoking status NHISOccasional tobacco smokerCincinnati Shriners Hospital End: 72-99-8864Twpiori of tobacco useCigarette SmokerCincinnati Shriners Hospital Start: 03-22-2020 End: 34-63-7485Bvingvphyt smoked current (pack per day) - Reported0.5PFormerly [facility]plin Hospitaltart: 05-17-2021 End: 19-71-7026Ydrornq use and exposureSmokeless tobacco non-userNovant Health / NHRMCtart: 10-05-2022 End: 52-87-8812Amjufbkvm beverage intakeCurrent non-drinker of alcohol (finding) [facility] HospitalAdolesmercy health [facility] depression screening ezeajmmddc5VeoLyaunuThe Jewish Hospitaltart: 09-14-2014 End: 69-51-5656UbjZqmbnx (finding)[facility] / NHRMCtart: 07-17-2024 End: 79-14-9582Vydnfrt smoking status NHISEx-smokerStafford Hospital End: 74-65-9666Nvbmymz of tobacco useCurrent smokerStafford Hospital Start: 57-07-4190Kysmgicxa beverage intakeEx-drinker (finding)[facility] HospitalHow often to you have a drink containing alcohol?NeverStafford Hospital Medical Equipment Procedure CodeEquipment CodeEquipment Original TextEquipment IdentifierDates Winchester Sut 4.75mm Swivelock Cls Eylt Vnt Pk 19.1mm Strl Disp Cls Use [id number] Ea=Bill Only - [id number]: 05-29-2021 Functional Status DateAssessmentResultMary [facility] Clinical Notes 10-27-2022 to 11-13-2024 Note Date & SijcTxqpPvpayvtk47-66-9017 Miscellaneous Notes* Telephone Encounter - Lisa Chambers - 11/13/2024 8:08 PM EDT Contract: [address] Natasha Brown for PostOp vomiting * Telephone Encounter - Lisa Chambers - 11/13/2024 8:08 PM EDT Call was connected to Dr comer documented in this encounterCincinnati Shriners Hospital10-05-2025 Telephone encounter Note* Telephone Encounter - Lisa Chambers - 11/13/2024 8:08 PM EDT Contract: [address] Natasha Brown for PostOp vomiting [facility]10-05-2025 Telephone encounter Note* Telephone Encounter - Lisa Chambers - 11/13/2024 8:08 PM EDT Call was connected to Dr ocmer [facility]09-23-2025 History of Present illness Narrative* Ai Kern RN - 11/01/2024 10:58 AM EDT Patient contacted office request refill on colace. RX entered for 30 day supply. documented in this encounterCincinnati Shriners Hospital09-19-2025 History of Present illness Narrative* AMANDA Kaur - 10/28/2024 11:30 AM EDT Bariatric Medical Nutrition Therapy Nutritional Assessment/Education Post-Op Weight Loss Surgery Video Visit via Real-time Synchronous Audiovisual Provider Location: [facility], A DEPARTMENT OF [facility] [address] [place] [phone] Patient Location: Patient's home Video Visit Consent Statement: I discussed risks, benefits, and alternatives of a real-time synchronous audiovisual consultation with the patient (and any accompanying persons) including the risks that the patient's personal health details and medical records will be discussed over real-time, synchronous, interactive video/audio/telecommunication technology, the visit will not be recorded withoutthe express consent of both the provider and the patient, and that there are some limitations compared to naig-be-yfik evaluations. The patient consented to the presence of additional virtual and/or in-person participants. We elected to proceed. Sierra Lo is a 44 y.o. female who presents s/p Sleeve Gastrectomy. Ht 172.2 cm (5' 7.8 ) Wt 115.2 kg (254 lb) LMP (LMP Unknown) BMI 38.85 kg/m Weight Lost (lbs): 8.29 since Surgery Date: 10/20/24 % Decreased BMI: 3.17 % Decreased Excess Weight: 8.43 Sierra is doing well since surgery. She is drinking 40-50 oz of fluids and two protein shakes a day. She is tolerating 1-2 oz of yogurt at a time and is walking at least one mile a day. She is having regular bowel movements with the help of Colace and MiraLax. She tried strained creamed soups although was not able to tolerate these. She states she tried them twice and vomited both times. Nutrition Diagnosis: Obesity as evidenced by BMI. Body mass index is 38.85 kg/m . Nutrition Intervention: Review nutrition education 1) Reinforced Day 3 tab in bariatric binder - eating for healing with full liquids. 2) Reinforced Day 10 tab in bariatric binder - eating for healing with creamy foods. Start of bariatric vitamin/mineral supplementation regimen. 3) Reinforced day 17 tab in bariatric binder - eating for healing with soft foods. 4) Reinforced compliance with diet progression to decrease complications and promote healing. 5) Reviewed common nutritional complaints after weight loss surgery. 6) Encouraged bariatric support group meetings for additional support. Written information on all discussed has been provided within the [facility] Bariatric Guide. Nutrition Monitoring: To follow up approximately 6 weeks post-op weight loss surgery. Start time: 1140 End time: 1208 documented in this [facility] HospitalClicknation [id number] Instructions* Patient Instructions* AMANDA Kaur - 10/28/2024 11:30 AM EDT If you re looking for general health and wellness resources, please visit [email or web address]. Read the [facility] Bariatric Guide. documented in this encounterAvita Health System Ontario HospitalClicknation [id number] History of Present illness Narrative* Opal Brown MD - 10/28/2024 10:00 [address] EDT [facility] [address] [facility] [phone] SURGICAL WEIGHT LOSS MANAGEMENT PROGRAM PROGRESS NOTE POST-OP Patient: Sierra Lo Service Date: 10/28/2024 Date of Surgery: 10/20/24 Reason for Visit: Routine Post-Operative POST-Operative Visits 10/28/2024 Weight: 115.8 kg (255 lb 6.4 oz) BMI: 39.99 The patient is a 44-year-old female who is 1 week status post laparoscopic sleeve gastrectomy. She is down 7 lb from the day of surgery. Her abdominal pain is minimal. She is walking about a mi a dayfor exercise. She denies any heartburn, reflux, or nausea. She had 1 episode of vomiting after having some cream of chicken soup. She has begun having bowel movements after starting MiraLax. Review of Systems: General Negative for: [] Weight Change [x] Fatigue [] Fevers & Chills [] Appetite change [] Other: Positive for: [x] Weight Change [] Fatigue [] Fevers & Chills [] Appetite change [] Other: Cardiac Negative for: [x] Chest Pain [x] Difficulty Breathing [] Leg Cramps [] Edema of Lower Extremeties [] Left [] Right Positive for: [] Chest Pain [] Difficulty Breathing [] Leg Cramps [] Edema of Lower Extremeties [] Left [] Right Pulmonary Negative for: [] Shortness of Breath [] Wheeze [] Cough [] Calf Pain Positive for: [] Shortness of Breath [] Wheeze [] Cough [] Calf Pain Gastro-Intestinal Negative for: [x] Heartburn [x] Reflux [] Dysphagia [] Melena [] BRBPR [x] Vomiting [x] Abdominal Pain [x] Diarrhea [] Constipation [] Other: Positive for: [] Heartburn [] Reflux [] Dysphagia [] Melena [] BRBPR [] Vomiting [] Abdominal Pain [] Diarrhea [] Constipation [] Other: Muskuloskeletal Negative for: [x] Joint pain [] Back pain [] Knee Pain [] Muscle weakness [x] Hernia [] Edema [] Other: Positive for: [] Joint pain [] Back pain [] Knee Pain [] Muscle weakness [] Hernia [] Edema [] Other: Neurologic Negative for: [x] Syncope [x] Insomnia [] Being treated for depression [] Other: Positive for: [] Syncope [] Insomnia [] Being treated for depression [] Other: Skin Negative for: [] Wound: [x] Open [x] Draining [] Incisional [] Rash [] Hair Loss [] Other: Positive for: [] Wound: [] Open [] Draining [] Incisional [] Rash [] Hair Loss [] Other: Physical Assessment: Ht 170.2 cm (5' 7.01 ) Wt 115.8 kg (255 lb 6.4 oz) LMP (LMP Unknown) BMI 39.99 kg/m General: Alert and oriented, no acute distress HEENT: No scleral icterus Chest: Normal respiratory effort Abdomen: Soft, appropriately tender, nondistended, Steri-Strips in place over some incisions which are clean, dry, and intact Neuro: No focal deficits Skin: Warm and dry Extremities: No edema Assessment & Plan: Assessment No diagnosis found. Plan: 1. PNV w/ iron po qd 2. Pepcid x 3 mo 3. Dietitian visit at 6 wks 4. Calcium w/ vit-D and vitamin B12 at 6 wk 5. F/u labs at 3 and 6 mo 6. Office visit w/ ENOCH/ at 3 mo Orders placed this encounter: No orders of the defined types were placed in this encounter. New Prescriptions: No orders of the defined types were placed in this encounter. Please note that this chart was generated using voice recognition PaxVaxModel dictation software. Although every effort was made to ensure the accuracy of this automated sack sewer, some errors in sack sewer may have occurred. documented in this encounterAvita Health System Ontario HospitalClicknation [id number] Miscellaneous Notes* Telephone Encounter - Belinda De Jesus RN - 10/24/2024 2:58 PM EDT Left voicemail for patient to call back. Discharge Follow-up Phone Call: Date of surgery: 10/20/24 Operation performed: Lap Sleeve Gastrectomy-Brown Current pain level (10-point scale): Number of ounces of fluid drank over the last 24 hours: Intake of grams of protein over the last 24 hours: Fever greater than 101 degrees: Yes No Urinating without difficulty: Yes No Passing flatus: Yes No Had a Bowel Movement: Yes No Reminder given if no BM within 48 hours of surgery to start Milk of Magnesia or Miralax Have you been ambulating: Yes No Other Complaints: Actions taken after call: Encouraged to call office if any issues or concerns. Patient verbalized an understanding documented [facility] this [facility] Telephone encounter Note* Telephone Encounter - Belinda De Jesus RN - 10/24/2024 2:58 PM EDT Left voicemail for patient to call back. Discharge Follow-up Phone Call: Date of surgery: 10/20/24 Operation performed: Lap Sleeve Gastrectomy-Brown Current pain level (10-point scale): Number of ounces of fluid drank over the last 24 hours: Intake of grams of protein over the last 24 hours: Fever greater than 101 degrees: Yes No Urinating without difficulty: Yes No Passing flatus: Yes No Had a Bowel Movement: Yes No Reminder given if no BM within 48 hours of surgery to start Milk of Magnesia or Miralax Have you been ambulating: Yes No Other Complaints: Actions taken after call: Encouraged to call office if any issues or concerns. Patient verbalized an understanding [facility] [id number] History of Present illness Narrative* Mandy Rojo RN - 10/18/2024 2:00 PM EDT Pre-operative Bariatric Educational Class Date and start time of pre-operative class: 10/18/2024 @ 1400 Date and end time of pre-operative class: 10/18/2024 @ 1610 Diagnoses: Obesity, Class III, BMI 40-49.9, adult; HTN, unspecified type; GERD, unspecified whetheresophagitis present; Osteoarthritis, unspecified osteoarthritis type, unspecified site; Back pain, unspecified back location unspecified back pain laterality, unspecified chronicity; Knee pain, unspecified chronicity, unspecified laterality; edema unspecified type The following education was reviewed during the pre-operative class: 1. Reinforced potential risks already reviewed by the surgeon:leak, blood clots, pulmonary embolus,dumping syndrome, nutritional deficiencies and infection. 2. Reviewed patient's role in helping prevent complications: ambulating, deep breathing and coughing exercises, using incentive spirometer every hour X 10 times, following the recommended diet, compliance with taking recommended vitamins and minerals and knowing the signs and symptoms of complications to report. 3. Reviewed Contact numbers and having a physician on-call at all times during the day and night, 365 days a year. 4. Instructed to bring [employer] [employer] Bariatric Guide to all appointments. 5. Explained patient's role with importance of follow-up care in a comprehensive accredited program. 6. Reviewed Introduction tab - Bariatric web sites, link to the electronic copy of the bariatric guide, PDF bariatric cookbook and the recommended web site - www.asmbs.org when needing information onmetabolic and bariatric surgery. 7. Reviewed Preparing for Surgery tab - stressing importance of taking vitamins/minerals for life to prevent vitamin and mineral deficiencies. 8. Reviewed Spreadshirt Video Visit options available and provided information on [employer] ESTELA. 9. Reviewed Medications before and after surgery tab. 10. Reviewed recommended medication to take for constipation before and after surgery. 11. Reviewed Alcohol and Smoking recommendations. 12. Reviewed Your Hospital Stay tab. 13. Reviewed importance of exercising, available exercise options, Bridge to Fitness and physical therapy appointment. 14. Reviewed Surgery tab- Types of surgery, Benefits of laparoscopic surgery, Risks of bariatric operations, Pre-operative liquid diet, Your Surgery, Pre- operative shower and Pre-surgery Instructions, ERAS protocols (Tap Blocks). Reviewed measures to prevent a SSI and a UTI. 15.. Reviewed Day 1 tab - meeting fluid recommendations of 64 ounces/day, not including protein shakes (2 protein shakes/ day). 16. Reviewed Discharge from the hospital tab. 17. Reviewed importance of Follow-up visits with your bariatric team. 18. Reviewed importance of attending Support groups and Emotional concerns after weight loss surgery. 19. Demonstrated proper use of incentive spirometer, EPC cuffs, [employer] tennis shoe magnet, Anticoagulation injections, and Monitoring for signs and symptoms of infection, leak, blood clot or pulmonary embolus. 20. Reviewed fluid tracking document to be used in hospital and for the first week post surgery 21. Reviewed to call the office if unable to meet fluid goal rather than go to the ED 22. Provided an opportunity to ask questions. Written materials provided within the [facility]. The following documents were provided: 2024 Support group dates, 2022 Outcomes, Bariatric AdvantageVitamins available in office /cost, and 7 copies of Fluid Tracking Sheets * Opal Brown MD - 10/18/2024 2:00 PM EDT Attesting Statement (Primary Care Exception) I reviewed the care furnished by the resident, immediately after the visit including the medical history, diagnosis, findings on physical examination, and treatment plan. I participated in the reviewand direction of the services furnished by Mandy Rojo RN. documented in this [facility]09-09-2025 Instructions* Patient Instructions* Mandy Rojo RN - 10/18/2024 2:00 PM EDT Preoperative Bariatric Surgery Educational Class documented in this encounterCincinnati [facility]09-08-2025 History and physical note* ENOCH Taylor - 10/17/2024 9:30 AM EDT PRE-ADMISSION TESTING HISTORY AND PHYSICAL EXAM DATE: 10/17/24 PCP: FRANCIA RODRIGUEZ MD CHIEF COMPLAINT: Morbid Obesity HISTORY OF PRESENT ILLNESS: Sierra Lo, a 44 y.o. White or female, presents to [facility] for a pre-surgical H&P prior to Bariatric Surgery. She denies abdominal pain, nausea, change in bowel habits or blood in her stool. She also denies chest pain, dyspnea, recent illness or fever. Of note, the patient reports she has had panic attacks when coming out of anesthesia in the past. PAST MEDICAL HISTORY: Past Medical History: Diagnosis Date Anesthesia complication Wakes up in panic Dental disease Upper and lower dentures Difficult intravenous access Eczema Feet/hands GERD (gastroesophageal reflux disease) Hypertension No meds Kidney stones Migraines Obesity Panic disorder PONV (postoperative nausea and vomiting) Recurrent UTI Visual impairment Glasses PAST SURGICAL HISTORY: Past Surgical History: Procedure Laterality Date APPENDECTOMY ARTHROSCOPY KNEE Left 2020 ARTHROSCOPY KNEE Left 11/16/2018 Performed by Aries Haro Jr., DO at [facility] EXPRESS ARTHROSCOPY REPAIR ROTATOR CUFF SHOULDER 33004, SUBACROMIAL DECOMPRESSION 66366/extensive debridement Right 05/29/2021 Performed by Luigi Vargas MD at [facility] CHOLECYSTECTOMY COLONOSCOPY N/A 2017 Performed by Sancho Curry MD at [facility] EGD N/A 2017 Performed by Sancho Curry MD at [facility] HYSTERECTOMY Partial OOPHORECTOMY Right TUBAL LIGATION FAMILY HISTORY: Family History Problem Relation Age of Onset No Known Problems Mother Stroke Father Cancer Father Brain Hypertension Father Breast cancer Sister 35 Miscarriages / Stillbirths Sister COPD Maternal Grandfather Diabetes Paternal Grandmother Hypertension Paternal Grandmother Clotting disorder Daughter Clotting disorder Daughter Von Willebrand Clotting disorder Daughter Von Willebrand Pancreatic cancer Paternal great-grandfather Anesthesia problems Neg Hx Colon cancer Neg Hx Bowen Breast Cancer Neg Hx SOCIAL HISTORY: The patient reports no history of alcohol use. She reports that she quit smoking about 13 months ago. Her smoking use included cigarettes. She hasa 9 pack-year smoking history. She has never used smokeless tobacco. She reports no history of drug use. ALLERGIES: Allergies Allergen Reactions Dilaudid [Hydromorphone] Facial Swelling MEDICATIONS: Current Outpatient Medications: baclofen (LIORESAL) 20 mg tablet, Take by mouth daily as needed., Disp: , Rfl: furosemide (LASIX) 20 mg tablet, Take 1 tablet (20 mg total) by mouth daily as needed., Disp: , Rfl: KLOR-CON M20 20 mEq CR tablet, Take 1 tablet (20 mEq total) by mouth daily as needed. TAKE 1 BY MOUTH TWICE DAILY WITH FOOD, Disp: , Rfl: metoprolol tartrate (LOPRESSOR) 50 mg tablet, Take 1 tablet (50 mg total) by mouth in the morning and 1 tablet (50 mg total) before bedtime., Disp: , Rfl: ondansetron (ZOFRAN) 4 mg tablet, Take 1 tablet (4 mg total) by mouth every 8 (eight) hours as needed for nausea or vomiting., Disp: 30 tablet, Rfl: 0 oxaprozin (DAYPRO) 600 mg tablet, Take 1 tablet (600 mg total) by mouth in the morning., Disp: , Rfl: pantoprazole (PROTONIX) 40 mg EC tablet, Take 1 tablet (40 mg total) by mouth every morning before breakfast., Disp: , Rfl: promethazine (PHENERGAN) 25 mg tablet, Take 1 tablet (25 mg total) by mouth daily as needed for nausea., Disp: , Rfl: rimegepant (NURTEC ODT) 75 mg tablet,disintegrating, Dissolve 1 tablet (75 mg total) on tongue onceas needed., Disp: , Rfl: triamcinolone (KENALOG) 0.1 % cream, Apply 1 Application topically as needed., Disp: , Rfl: acetaminophen (TYLENOL EXTRA STRENGTH) 500 mg tablet, Take 2 tablets (1,000 mg total) by mouth every 6 (six) hours as needed for pain., Disp: , Rfl: escitalopram (LEXAPRO) 10 mg tablet, Take 1 tablet (10 mg total) by mouth in the morning., Disp: , Rfl: hyoscyamine (LEVSIN) 0.125 mg SL tablet, DISSOLVE 1 TO 2 TABLETS IN MOUTH EVERY 4 HOURS NEEDED FOR ABDOMINAL PAIN., Disp: , Rfl: tiZANidine (ZANAFLEX) 4 mg tablet, TAKE 2 TABLETS BY MOUTH ONCE DAILY AT BEDTIME NEEDED (Patientnot taking: Reported on 10/17/2024), Disp: , Rfl: REVIEW OF SYSTEMS: Review of Systems Constitutional: Negative for fever. HENT: Positive for dental problem (Dentures). Negative for hearing loss, rhinorrhea and sore throat. Eyes: Negative for visual disturbance. Respiratory: Negative for cough, chest tightness and shortness of breath. Cardiovascular: Positive for leg swelling (At times). Negative for chest pain and chest discomfort. Gastrointestinal: Negative for nausea, vomiting, abdominal pain, diarrhea, constipation and abdominal distention. Genitourinary: Negative for dysuria, hematuria and difficulty urinating. Musculoskeletal: Negative for myalgias, back pain, arthralgias and neck pain. Skin: Negative for rash and wound. Neurological: Negative for dizziness, seizures and headaches. Hematological: Does not bruise/bleed easily. Psychiatric/Behavioral: Negative for agitation, behavioral problems and confusion. VITAL SIGNS: BP 128/81 Pulse 74 Temp 36.4 C (97.6 F) (Temporal) Resp 18 Ht 170.2 cm (5' 7 ) Wt 121.9 kg (268 lb 11.9 oz) LMP (LMP Unknown) SpO2 100% BMI 42.09 kg/m PHYSICAL EXAM: Physical Exam Vitals reviewed. Constitutional: General: She is not in acute distress. Appearance: She is well-developed. HENT: Head: Normocephalic and atraumatic. Right Ear: External ear normal. Left Ear: External ear normal. Nose: No rhinorrhea. Mouth/Throat: Mouth: Mucous membranes are moist. Eyes: General: No scleral icterus. Cardiovascular: Rate and Rhythm: Normal rate and regular rhythm. Heart sounds: Normal heart sounds. No murmur heard. Pulmonary: Effort: Pulmonary effort is normal. Breath sounds: Normal breath sounds. No wheezing or rhonchi. Abdominal: General: Bowel sounds are normal. Palpations: Abdomen is soft. Skin: General: Skin is warm and dry. Neurological: Mental Status: She is alert and oriented to person, place, and time. Psychiatric: Behavior: Behavior normal. PERTINENT TESTING AVAILABLE IN [facility] (WITHIN THE PAST 2 YEARS): EK10/17/2024: *Pending cardiology interpretation* Echo: No results found. Stress test: No results found. Holter: No results found. Cardiac catheterization: No results found. Carotids: No results found. Pulmonary function testing: No results found. ASSESSMENT / DIAGNOSIS: Morbid Obesity PLAN: Sierra Lo is scheduled for LAPAROSCOPIC SLEEVE GASTRECTOMY with Dr. Brown on 10/20/2024. *Labs were done today in Pre-Admission Testing, please review in [facility]* ENOCH Taylor 10/17/24 1017 [facility]09-08-[facility] History and physical note* ENOCH Taylor - 10/17/2024 9:30 AM EDT PRE-ADMISSION TESTING HISTORY AND PHYSICAL EXAM DATE: 10/17/24 PCP: FRANCIA RODRIGUEZ MD CHIEF COMPLAINT: Morbid Obesity HISTORY OF PRESENT ILLNESS: Sierra Lo, a 44 y.o. White or female, presents to [facility] for a pre-surgical H&P prior to Bariatric Surgery. She denies abdominal pain, nausea, change in bowel habits or blood in her stool. She also denies chest pain, dyspnea, recent illness or fever. Of note, the patient reports she has had panic attacks when coming out of anesthesia in the past. PAST MEDICAL HISTORY: Past Medical History: Diagnosis Date Anesthesia complication Wakes up in panic Dental disease Upper and lower dentures Difficult intravenous access Eczema Feet/hands GERD (gastroesophageal reflux disease) Hypertension No meds Kidney stones Migraines Obesity Panic disorder PONV (postoperative nausea and vomiting) Recurrent UTI Visual impairment Glasses PAST SURGICAL HISTORY: Past Surgical History: Procedure Laterality Date APPENDECTOMY ARTHROSCOPY KNEE Left 2020 ARTHROSCOPY KNEE Left 11/16/2018 Performed by Aries Haro Jr., DO at [facility] ARTHROSCOPY REPAIR ROTATOR CUFF SHOULDER [id number], SUBACROMIAL DECOMPRESSION 38912/extensive debridement Right 05/29/2021 Performed by Luigi Vargas MD at [facility] CHOLECYSTECTOMY COLONOSCOPY N/A 2017 Performed by Sancho Curry MD at [facility] EGD N/A 2017 Performed by Sancho Curry MD at [facility] HYSTERECTOMY Partial OOPHORECTOMY Right TUBAL LIGATION FAMILY HISTORY: Family History Problem Relation Age of Onset No Known Problems Mother Stroke Father Cancer Father Brain Hypertension Father Breast cancer Sister 35 Miscarriages / Stillbirths Sister COPD Maternal Grandfather Diabetes Paternal Grandmother Hypertension Paternal Grandmother Clotting disorder Daughter Clotting disorder Daughter Von Willebrand Clotting disorder Daughter Von Willebrand Pancreatic cancer Paternal great-grandfather Anesthesia problems Neg Hx Colon cancer Neg Hx Bowen Breast Cancer Neg Hx SOCIAL HISTORY: The patient reports no history of alcohol use. She reports that she quit smoking about 13 months ago. Her smoking use included cigarettes. She hasa 9 pack-year smoking history. She has never used smokeless tobacco. She reports no history of drug use. ALLERGIES: Allergies Allergen Reactions Dilaudid [Hydromorphone] Facial Swelling MEDICATIONS: Current Outpatient Medications: baclofen (LIORESAL) 20 mg tablet, Take by mouth daily as needed., Disp: , Rfl: furosemide (LASIX) 20 mg tablet, Take 1 tablet (20 mg total) by mouth daily as needed., Disp: , Rfl: KLOR-CON M20 20 mEq CR tablet, Take 1 tablet (20 mEq total) by mouth daily as needed. TAKE 1 BY MOUTH TWICE DAILY WITH FOOD, Disp: , Rfl: metoprolol tartrate (LOPRESSOR) 50 mg tablet, Take 1 tablet (50 mg total) by mouth in the morning and 1 tablet (50 mg total) before bedtime., Disp: , Rfl: ondansetron (ZOFRAN) 4 mg tablet, Take 1 tablet (4 mg total) by mouth every 8 (eight) hours as needed for nausea or vomiting., Disp: 30 tablet, Rfl: 0 oxaprozin (DAYPRO) 600 mg tablet, Take 1 tablet (600 mg total) by mouth in the morning., Disp: , Rfl: pantoprazole (PROTONIX) 40 mg EC tablet, Take 1 tablet (40 mg total) by mouth every morning before breakfast., Disp: , Rfl: promethazine (PHENERGAN) 25 mg tablet, Take 1 tablet (25 mg total) by mouth daily as needed for nausea., Disp: , Rfl: rimegepant (NURTEC ODT) 75 mg tablet,disintegrating, Dissolve 1 tablet (75 mg total) on tongue onceas needed., Disp: , Rfl: triamcinolone (KENALOG) 0.1 % cream, Apply 1 Application topically as needed., Disp: , Rfl: acetaminophen (TYLENOL EXTRA STRENGTH) 500 mg tablet, Take 2 tablets (1,000 mg total) by mouth every 6 (six) hours as needed for pain., Disp: , Rfl: escitalopram (LEXAPRO) 10 mg tablet, Take 1 tablet (10 mg total) by mouth in the morning., Disp: , Rfl: hyoscyamine (LEVSIN) 0.125 mg SL tablet, DISSOLVE 1 TO 2 TABLETS IN MOUTH EVERY 4 HOURS NEEDED FOR ABDOMINAL PAIN., Disp: , Rfl: tiZANidine (ZANAFLEX) 4 mg tablet, TAKE 2 TABLETS BY MOUTH ONCE DAILY AT BEDTIME NEEDED (Patientnot taking: Reported on 10/17/2024), Disp: , Rfl: REVIEW OF SYSTEMS: Review of Systems Constitutional: Negative for fever. HENT: Positive for dental problem (Dentures). Negative for hearing loss, rhinorrhea and sore throat. Eyes: Negative for visual disturbance. Respiratory: Negative for cough, chest tightness and shortness of breath. Cardiovascular: Positive for leg swelling (At times). Negative for chest pain and chest discomfort. Gastrointestinal: Negative for nausea, vomiting, abdominal pain, diarrhea, constipation and abdominal distention. Genitourinary: Negative for dysuria, hematuria and difficulty urinating. Musculoskeletal: Negative for myalgias, back pain, arthralgias and neck pain. Skin: Negative for rash and wound. Neurological: Negative for dizziness, seizures and headaches. Hematological: Does not bruise/bleed easily. Psychiatric/Behavioral: Negative for agitation, behavioral problems and confusion. VITAL SIGNS: BP 128/81 Pulse 74 Temp 36.4 C (97.6 F) (Temporal) Resp 18 Ht 170.2 cm (5' 7 ) Wt 121.9 kg (268 lb 11.9 oz) LMP (LMP Unknown) SpO2 100% BMI 42.09 kg/m PHYSICAL EXAM: Physical Exam Vitals reviewed. Constitutional: General: She is not in acute distress. Appearance: She is well-developed. HENT: Head: Normocephalic and atraumatic. Right Ear: External ear normal. Left Ear: External ear normal. Nose: No rhinorrhea. Mouth/Throat: Mouth: Mucous membranes are moist. Eyes: General: No scleral icterus. Cardiovascular: Rate and Rhythm: Normal rate and regular rhythm. Heart sounds: Normal heart sounds. No murmur heard. Pulmonary: Effort: Pulmonary effort is normal. Breath sounds: Normal breath sounds. No wheezing or rhonchi. Abdominal: General: Bowel sounds are normal. Palpations: Abdomen is soft. Skin: General: Skin is warm and dry. Neurological: Mental Status: She is alert and oriented to person, place, and time. Psychiatric: Behavior: Behavior normal. PERTINENT TESTING AVAILABLE IN [facility] (WITHIN THE PAST 2 YEARS): EK10/17/2024: *Pending cardiology interpretation* Echo: No results found. Stress test: No results found. Holter: No results found. Cardiac catheterization: No results found. Carotids: No results found. Pulmonary function testing: No results found. ASSESSMENT / DIAGNOSIS: Morbid Obesity PLAN: Sierra Lo is scheduled for LAPAROSCOPIC SLEEVE GASTRECTOMY with Dr. Brown on 10/20/2024. *Labs were done today in Pre-Admission Testing, please review in EPIC* ENOCH Taylor 10/17/24 1017 documented in this encounterAvita Health System Ontario HospitalClicknation [id number] Instructions* Patient Instructions* Anabela Banegas RN - 10/17/2024 9:30 AM EDT Pre-Surgery Instructions: Your surgery/procedure is scheduled at [facility] on 10/20/2024 at 945 am Arrival Time 745 am [facility] Address: [address] [place] [address] in [address] Parking lot located on [facility]. Report to the Entrance B. Check in at the information desk. The waiting room is located on the second floor. If you have any questions prior to surgery, please call Pre-Admission Clinic at [phone] between 7:30 am and 4:30 pm Thursday through Thursday. If you have questions the morning of surgery, please call the Pre-op Department at [phone]. Notify your SURGEON if you develop any illness such as a cold, cough, fever, sore throat, vomiting or are hospitalized between now and your surgery. Medication Instructions (Do not stop your medications without consulting the prescribing physician). Take the following medications the morning of surgery with a sip of water: metoprolol, pantoprazole, lexapro Diabetic or Weight loss medications: HOLD n/a LAST DOSE n/a Take inhalers as prescribed the morning of surgery. Due to the risk associated with these medications. If these medications are not held per instruction below, your surgery is at an increased risk for cancellation. SGLT2 Medications- Hold 3 days prior to surgery: Jardiance, Empagliflozin, Farxiga, Dapagliflozin, Invokana, Canagliflozin, Trijardy, Synjardy GLP-1 Medications (Injection or Pill)- If taken daily hold day of surgery. If taken weekly, hold 1 week prior to surgery: Adlyxin, Byetta, Bydureon, Ozempic, Rybelsus,Trulicity, Victoza, Wegovy, Lixisenatide, Exenatide, Semaglutide, Dulaglutide, Liraglutide GIP/GLP-1(Injection or Pill)- If taken daily hold day of surgery. If taken weekly, hold 1 week prior to surgery: Toñounjimenaro . Blood thinners: Please contact your prescribing physician regarding a stop/hold date for these medications. Medications such as Coumadin, Heparin, Aspirin, Plavix, Eliquis, Pradaxa Diabetics: If you take insulin, contact your prescribing doctor for instructions on how to manage this the night before and the morning of surgery. Non-steriodal Anti-Inflammatory Drugs (NSAIDS)- Hold 3 days prior to surgery unless otherwise directed by your surgeon. Vitamins/Herbal Products: You may continue to take your prescribed vitamins such as potassium, iron, vitamin B, vitamin C, or multivitamin unless specifically instructed by your surgeon to hold. STOPtaking all herbal products/teas one week prior to your surgery. Marijuana: Stop marijuana 72 hours prior to surgery, stop CBD oil 48 hours prior to surgery. If you have been given bowel prep instructions by your surgeon, please call the surgeon's office with any questions about these instructions. What do I do the day of Surgery? Age 2 through adult - Stop all solids by midnight, You may have a small amount of clear liquids up to 2 hours before surgery, unless otherwise instructed by your surgeon. Clear liquids are: water, sports drinks such as Gatorade or G2, or apple juice. You may NOT have: tube feedings, dairy products, alcoholic beverages, orange juice, or any liquids with solids or pulp in it. If applicable, shower again with CHG soap the morning of your surgery. In order to help prevent infection post-operatively, you may be asked to use a CHG mouthwash when you arrive to the Pre-op area. Your nurse will provide instruction the morning of. What do I need to do to prepare for surgery? If you will be going home the same day as your surgery, arrange for an adult over [address] Riding in a bus or taxi by yourself is not permitted. You should not smoke or drink alcohol 24 hours before your surgery. Alcohol thins the blood and may cause bleeding problems during surgery. Smoking increases the risk of breathing problems after surgery. Do not use lotions, creams, powders, perfume, make up, cologne or after-shaves day of surgery. Remove ALL jewelry including wedding rings, body piercings (including dermal piercing's, hair extensions that contain metal, nail tanzanian, make-up, and contact lens. You may brush your teeth the morning of surgery, but do not swallow the water. Wear your dentures and partial plates to the hospital (no adhesive). Shower the night before your procedure. If applicable, use the CHG (chlorhexidine gluconate) soap or wipes. Place clean linens on your bed after showering and put on freshly laundered nightclothes. Do not allow pets to sleep in your bed What should I bring to the hospital? Eyeglass or contact lens case If you will be spending the night, please bring personal care items and leave them in the car untilyou are taken to your room after surgery. Leave ALL valuables at home. If any of these instructions conflict with those you received from the surgeon, please seek clarification from your surgeon's office. DEEP BREATHING EXERCISES This exercise helps promote good air exchange and helps to prevent pneumonia after surgery. Breathe in slowly and deeply through the nose. Hold your breath for a few seconds and then exhale slowly through the mouth. Repeat this three times and then cough.Coughing helps to clear your lungs. If you have had a surgery with an incision into your abdomen or chest, press gently against your incision with a pillow or a folded blanket when you cough. Please be aware - it may not be bernard to cough following some types of surgeries involving the eyes,ears, sinuses and throat. Always follow your doctor's instructions. LEG EXERCISE These exercises help promote good circulation and help to prevent blood clots after surgery. Point your toes to the ceiling and then point them to the wall. Do this slowly about 15-20 times. You may also move your feet in circles. Do the exercise that is most comfortable for you. If you have had surgery involving your shoulder or arm, we recommend you move your fingers. PRACTICING We ask that you begin practicing these exercises before your surgery. After surgery try to do both exercises at least every 2 hours during the day and early evening. Surgical Site Infection Prevention What is a Surgical Site Infection (SSI)? Infection can happen to the area of the body where surgery is done. This is called a surgical site infection (SSI). A SSI does not happen very often. What are some of the things that hospitals are doing to prevent SSIs? Soap and water or alcohol hand rub are used before and after caring for each patient. Special soap is used to clean surgery workers hands and arms just before the surgery. Masks, gowns, gloves and hair covers are worn during the surgery to keep the area clean. Hair in the surgery area may be removed with clippers (not razors). A special soap that kills germs is used to clean the skin at the surgery site. Antibiotics may be given before the surgery starts. What can you do to prevent SSIs? Before surgery: You may be asked to shower or bathe with a special soap that kills germs the night before and the day of surgery. Use the soap as you were told. Place clean sheets on your bed the night before surgery and do not allow your pets in your bed. If you smoke or vape, stop or cut down. This creates a stress response in your body that increases inflammation, constricts blood vessels and deprives your tissues of oxygen. After surgery, this stress response disrupts the travel of oxygen, nutrients, and blood to your surgical site, interfering with the wound healing process. It also decreases the ability of your cells to fight infection. Ask your doctor about ways to quit. If you have high blood sugars or diabetes please talk with your doctor about having healthy blood sugar levels to promote healing. Do not shave near where you will have surgery. Shaving can irritate the skin and make it easier to get and infection. After surgery: Be sure that the doctors and nurses clean their hands before and after touching you. Be sure your family and friends clean their hands before and after visiting you. Do not be afraid to remind them. Always wash your hands before touching your incisional area. * Care for your wound at home as told by your doctor or nurse * Call your doctor right away if you have fever, redness, increased pain, or drainage at the surgery site. Can SSIs be treated? Antibiotics are used to treat SSI. Some patients may need another surgery to treat the infection. The doctor will discuss treatment options with you. Further questions? Contact the doctor, nurse or the Infection Prevention and Control department if you have any questions. PATIENT RIGHTS AND RESPONSIBILITIES As a patient at [facility], you have the right to: Receive medical care and be informed of who is taking care of you Be treated with dignity and respect Have a family member/new accounts representative of choice and your physician notified of your admission Receive information and actively participate in decisions about your care and treatment Refuse care, treatment and services Decide who may provide your support and speak for you Access christianity and spiritual services Participate in ethical issues and questions about your care Receive private and confidential care Have appropriate assessment and management of your pain Know guest visitation restrictions or limitations Have an advance directive Access protective services Consent or refuse to participate in research studies or production or recordings, films or other images Have resolution of your complaints Receive information of hospital charges and payment methods Patient/patient new accounts representative responsibilities are to: Provide information about health status to facilitate care, treatment and services Follow the treatment, plan, keep appointments and speak up when you do not understand the plan Respect the rights of other patients and healthcare personnel Follow organizational rules and regulations that support quality care and a safe environment Fulfill financial obligations as promptly as possible Bathing Before Surgery- Patients greater than 2 months of age You can help to lower your chance of infection at the site of your surgery by showering or bathing with a special soap called chlorhexidine gluconate (CHG). Germs live on your skin. This special soapwill help lower the amount of germs so they do not get into your surgery site. Special points to know: Do not use this soap if you know that you are allergic to CHG. Shower or bathe with CHG the night before and the morning of surgery. Do not shave the area of your body where the surgery will be done within 7 days of surgery. The CHG may make your skin a little dry, but do not use lotion. Steps for Bathing: Wash your hair as usual with your normal shampoo. Rinse your hair and body well after you shampoo to get rid all of the shampoo. Wash gently with the CHG from the neck down, but do not scrub the skin to hard. Be sure to wash thearea of your surgery very well. If showering, turn the water off while washing and then turn the water back onto rinse. Do not get CHG in the genital (private) area. Do not get CHG in the eyes, ears, nose or mouth. (If the soap gets into the eyes, flush them immediately with water). Do not wash with regular soap after CHG is used. Pat skin dry with a soft, clean towel. Patient should sleep in freshly laundered night clothes and report for surgery in clean clothes. [facility] encounterC[facility] Miscellaneous Notes* Perioperative Nursing Note - Anabela Banegas RN - 10/17/2024 9:30 AM EDT Patient had CXR done with PCP on 08/09/2024- Dr. Wooten office called to see if okay for patient not to repeat - left voicemail for [employer] career and guidance counselor to call patient if not needed to repeat. documented in this encounterC[facility]09-[facility] Nurse Note* Perioperative Nursing Note - Anabela Banegas RN - 10/17/2024 9:30 AM EDT Patient had CXR done with PCP on 08/09/2024- Dr. Wooten office called to see if okay for patient not to repeat - left voicemail for [employer] career and guidance counselor to call patient if not needed to repeat. [facility] History of Present illness Narrative* Opal Brown MD - 09/02/2024 9:00 AM EDT Bariatric Surgery Progress Note Subjective The patient is a 44 y.o. female who has completed the preoperative work up for bariatric surgery. We discussed the risks, benefits, and alternatives of laparoscopic sleeve gastrectomy at length, and informed consent was obtained. Objective BP (!) 156/100 Ht 170.2 cm (5' 7 ) Wt 121.7 kg (268 lb 3.2 oz) LMP (LMP Unknown) BMI 42.01 kg/m General appearance: alert & oriented x3, no acute distress, and cooperative Head: Normocephalic, without obvious abnormality, atraumatic Lungs: normal respiratory effort Abdomen: soft and nondistended Extremities: extremities normal, atraumatic, no cyanosis or edema Skin: Skin color, texture, turgor normal. No rashes or lesions Neurologic: Grossly normal Labs Narrative & Impression History: Preoperative assessment for bariatric surgery. Exam/Technique: [...] Enrique Dubois DO on 12/02/2023 1:28 PM Exam Ended: 12/02/23 10:01 EDT Last Resulted: 12/02/23 13:28 EDT Current Medications Current Outpatient Medications Medication Sig Dispense Refill erenumab-aooe 70 mg/mL auto-injector Inject 140 mg under the skin every 30 (thirty) days. furosemide (LASIX) 40 mg tablet Take 1 tablet (40 mg total) by mouth daily. KLOR-CON M20 20 mEq CR tablet Take 1 tablet (20 mEq total) by mouth in the morning and 1 tablet (20mEq total) before bedtime. TAKE 1 BY MOUTH TWICE DAILY WITH FOOD. meloxicam (MOBIC) 15 mg tablet Take 1 tablet (15 mg total) by mouth in the morning. metoprolol tartrate (LOPRESSOR) 50 mg tablet Take 1 tablet (50 mg total) by mouth in the morning and 1 tablet (50 mg total) before bedtime. ondansetron (ZOFRAN) 4 mg tablet Take 1 tablet (4 mg total) by mouth every 8 (eight) hours as needed for nausea or vomiting. 30 tablet 0 pantoprazole (PROTONIX) 40 mg EC tablet Take 1 tablet (40 mg total) by mouth every morning before breakfast. promethazine (PHENERGAN) 25 mg tablet Take 1 tablet (25 mg total) by mouth daily as needed for nausea. rimegepant (NURTEC ODT) 75 mg tablet,disintegrating Dissolve on tongue as needed. triamcinolone (KENALOG) 0.1 % cream Apply 1 Application topically as needed. docusate sodium (COLACE) 100 mg capsule Take 1 capsule (100 mg total) by mouth in the morning and 1capsule (100 mg total) before bedtime. Do all this for 14 days. 28 capsule 0 scopolamine (TRANSDERM-SCOP) 1 mg/[address] 1 patch on the skin every third day for [address] behind your ear the night before your surgery 1 patch 0 No current facility-administered medications for this visit. Assessment Patient is a 44 y.o. female with morbid obesity Plan Urine nicotine test Preoperative colace and scopolamine patch ordered Schedule for laparoscopic sleeve gastrectomy documented in this encounterC[facility]06-[facility] History of Present illness Narrative* AMANDA Kaur - 07/27/2024 10:00 AM EDT Bariatric Medical Nutrition Therapy Nutritional Assessment/Education Session #: 8 Sierra Lo is a 44 y.o. female who participated in a video visit for follow up medical nutritional therapy for weight loss surgery. Video Visit via Real-time Synchronous Audiovisual Provider Location: [facility], A DEPARTMENT OF [facility] [address] [place] [phone] Patient Location: Patient's home Patient Location Housekeeping Aide: None Video Visit Consent Statement: I discussed risks, benefits, and alternatives of a real-time synchronous audiovisual consultation with the patient (and any accompanying persons) including the risks that the patient's personal health details and medical records will be discussed over real-time, synchronous, interactive video/audio/telecommunication technology, the visit will not be recorded withoutthe express consent of both the provider and the patient, and that there are some limitations compared to [id number] evaluations. We elected to proceed. Weight Change 07/27/2024 Weight: 117 kg (258 lb) Weight Change: up 6 pounds in one month Sierra had a kidney stone this month followed by an infection that has contributed to her weight gain. With this has has not been able to tolerate most foods. She has still tried to get meals in through protein shakes and yogurt. She is still drinking sugar free drinks and is starting to wean offcaffeine. She is still trying to be active with walking a half mile a day and she got a gym membership this month. She is working hard on eating and drinking from each other and eating slowly. Beverage Intake: Crystal light, coffee with protein shake, Gatorlyte, and water Physical Activity: Walking (1/2 mile) and [employer] membership (has not gone due to pain) Bariatric Medical Nutrition Therapy Goal Summary [...] evidenced by BMI. Body mass index is 40.41 kg/m . Nutrition Prescription for Bariatric Surgery: 1) Promote optimal healing postoperatively. Ensure adequate protein intake with protein supplements. 2) Prevent onset of early and late dumping syndrome. Avoid all simple sugars. Consume liquids between meals. 3) Prevent development of nutrient deficiencies. 1) 2 multivitamins with iron daily or 1 vitamin daily. 2) 8607-7826 mg calcium in divided doses (2x/day) for sleeve and gastric bypass, 2984-6349 mg in divided doses (3x/day) for SADS and distalization of bypass. Calcium Citrate can be taken with or without meals, however Calcium Carbonate should be consumed with meals. Take at least 2 hours before or after taking iron, since calcium will decrease iron absorption. 3) 350-1000 mcg oral vitamin B12 daily or 1000 mcg monthly injectable. Nutrition Intervention: Comprehensive Nutrition Education 1) Discussed post op gastric reduction diet guidelines. 2) Discussed post op gastric reduction diet progression. 3) Discussed post op gastric reduction diet vitamin/mineral regimen. 4) Stressed the importance of adequate hydration (64 ounces/day). 5) Stressed the importance of adequate protein 65-75 grams/day. 6) Discussed ways to prevent signs and symptoms of dumping syndrome. 7) Discussed pre-operative liquid diet. 8) Encouraged bariatric support group meetings for additional support. Patient is to continue to work towards making previous diet goals part of daily habits prior to surgery. Written information on all discussed has been provided within the [facility] Bariatric Guide. My contact name and number provided if questions or concerns arise. Nutrition Monitoring: To follow up after weight loss surgery to reinforce diet. Start time: 1004 End time: 1052 documented in this encounterC[facility]06-18-2025 Instructions* Patient Instructions* AMANDA Kaur - 07/27/2024 10:00 AM EDT If you re looking for general health and wellness resources, please visit [email or web address]. Read the [facility] Bariatric Guide. documented in this encounterCinc[facility]05-16-2025 History of Present illness Narrative* AMANDA Kaur - 06/24/2024 11:30 AM EDT Bariatric Medical Nutrition Therapy Nutritional Assessment/Education Session #: 7 Video Visit via Real-time Synchronous Audiovisual Provider Location: [facility], A DEPARTMENT OF [facility] [address] [facility] [phone] Patient Location: Patient's home Video Visit Consent Statement: I discussed risks, benefits, and alternatives of a real-time synchronous audiovisual consultation with the patient (and any accompanying persons) including the risks that the patient's personal health details and medical records will be discussed over real-time, synchronous, interactive video/audio/telecommunication technology, the visit will not be recorded withoutthe express consent of both the provider and the patient, and that there are some limitations compared to [id number] evaluations. The patient consented to the presence of additional virtual and/or in-person participants. We elected to proceed. Sierra Lo is a 44 y.o. female who presents for follow up medical nutritional therapy for weight loss surgery. Weight Change 06/24/2024 Weight: 114.3 kg (252 lb) Weight Change: down 3 pounds in one month Sierra is doing well with her nutrition goals [...] in the bind. Discussed tips for eating outafter surgery. Written information on all discussed has been provided within the [facility] Bariatric Guide. My contact name and number provided if questions or concerns arise. Nutrition Monitoring: To follow up in 1 month to show progress towards goals. Start time: 1124 End time: 1151 documented in this encounterAvita Health System [facility] HospitalClicknation [id number] Instructions* Patient Instructions* AMANDA Kaur - 06/24/2024 11:30 AM EDT If you re looking for general health and wellness resources, please visit [email or web address] Read the [facility] Bariatric Guide. documented in this encounterAvita Health System Ontario HospitalClicknation [id number] NoteGeneral Surgery Office/Clinic Note Chief Complaint consultation for abdominal pain HPI Staff 44 year old female presents on consultation from Dr. Rodriguez for right lower quadrant pain. Reports 6 month history of intense right lower quadrant pain with bending. Reports pain will last until she gets herself upright. Verbalized sometimes she needs to stretch out in order for pain to resolve. Verbalized the best way she can describe pain is the feeling of something locking up . She has chronicnausea and bowel changes post cholecystectomy completed at [...] swallowing difficulties, no hearing loss, no ear infection(s),no nose bleeds. Cardiovascular: normal blood pressure, no [...] E&M of New Patient Moderate 45-59 Min 53825 2. Tobacco use (Z72.0: Tobacco use) We [...] E&M of New Patient Moderate 45-59 Min 68835 Follow-up No qualifying data available Problem List/Past Medical History Ongoing Anxiety Bilateral lower limb superficial vein thrombophlebitis BMI 40.0-44.9, adult Class 3 obesity Eczema Gastroesophageal reflux disease History of n (more content not included)...[facility] HospitalComment on above:Result Comment: Electronically Signed By: GENNY KIMBLE, Quoc Andrade\Date and Time Signed: 05/31/24 15:28 [id number] History of Present illness Narrative * Suresh Sow, LD - 05/26/2024 10:00 AM EDT Bariatric Medical Nutrition Therapy Nutritional Assessment/Education Session #: 6 Video Visit via Real-time Synchronous Audiovisual Provider Location: [facility], A DEPARTMENT OF [facility] [address] [place] [phone] Patient Location: Patient's home Video Visit Consent Statement: I discussed risks, benefits, and alternatives of a real-time synchronous audiovisual consultation with the patient (and any accompanying persons) including the risks that the patient's personal health details and medical records will be discussed over real-time, synchronous, interactive video/audio/telecommunication technology, the visit will not be recorded withoutthe express consent of both the provider and the patient, and that there are some limitations compared to [id number] evaluations. The patient consented to the presence of additional virtual and/or in-person participants. We elected to proceed. Sierra Lo is a 44 y.o. female who presents for follow up medical nutritional therapy for weight loss surgery. Weight Change 05/26/2024 Weight: 114.3 kg (252 lb) Weight Change: up 3 pounds in one month Sierra is doing well with her nutrition goals despite having a stressful month with being sick. She is officially off of all nicotine products. She is walking each day and is not drinking sugar sweetened beverages. She is tracking her meals in an estela with calories around 1600 a day. 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 Written information on all discussed has been provided within the [facility] Bariatric Guide. My contact name and number provided if questions or concerns arise. Nutrition Monitoring: To follow up in 1 month to show progress towards goals. Start time: 953 End time: 1021 documented in this encounterCincinnati [facility]04-17-2025 Instructions* Patient Instructions* AMANDA Kaur - 05/26/2024 10:00 AM EDT If you re looking for general health and wellness resources, please [email or web address]. Read the [facility] Bariatric Guide. documented in this encounterCincinnati [facility]03-17-2025 History of Present illness Narrative* AMANDA Kaur - 04/25/2024 9:30 AM EDT Bariatric Medical Nutrition Therapy Nutritional Assessment/Education Session #: 5 Video Visit via Real-time Synchronous Audiovisual Provider Location: [facility] [address] [place] [phone] Patient Location: Patient's home Video Visit Consent Statement: I discussed risks, benefits, and alternatives of a real-time synchronous audiovisual consultation with the patient (and any accompanying persons) including the risks that the patient's personal health details and medical records will be discussed over real-time, synchronous, interactive video/audio/telecommunication technology, the visit will not be recorded withoutthe express consent of both the provider and the patient, and that there are some limitations compared to [id number] evaluations. The patient consented to the presence of additional virtual and/or in-person participants. We elected to proceed. Sierra Lo is a 43 y.o. female who presents for follow up medical nutritional therapy for weight loss surgery. Weight Change 04/25/2024 Weight: 114.3 kg (252 lb) Weight Change: up 2 pounds in one month Sierra is doing well working on her nutrition [...] all discussed has been provided within the [facility] Bariatric Guide. My contact name and number provided if questions or concerns arise. Nutrition Monitoring: To follow up in 1 month to show progress towards goals. Start time: 933 End time: 1002 documented in this encounterCincinnati [facility]rin[facility]03-17-2025 Instructions* Patient Instructions* AMANDA Kaur - 04/25/2024 9:30 AM EDT If you re looking for general health and wellness resources, please visit [email or web address]. Read the [facility] Bariatric Guide. documented in this encounterCincinnati Shriners Hospital02-17-2025 History of Present illness Narrative* AMANDA Kaur - 03/28/2024 3:30 PM EST Bariatric Medical Nutrition Therapy Nutritional Assessment/Education Session #: 4 Video Visit via Real-time Synchronous Audiovisual Provider Location: [facility] [address] [place] [phone] Patient Location: Patient's home Video Visit Consent Statement: I discussed risks, benefits, and alternatives of a real-time synchronous audiovisual consultation with the patient (and any accompanying persons) including the risks that the patient's personal health details and medical records will be discussed over real-time, synchronous, interactive video/audio/telecommunication technology, the visit will not be recorded withoutthe express consent of both the provider and the patient, and that there are some limitations compared to jiez-wk-hrvq evaluations. The patient consented to the presence of additional virtual and/or in-person participants. We elected to proceed. Sierra Lo is a 43 y.o. female who presents for follow up medical nutritional therapy for weight loss surgery. Weight Change 03/28/2024 Weight: 113.4 kg (250 lb) Weight Change: Weight did not change Sierra is doing well with her nutrition goals this month. Her family is still going to the [facility] at least 3 days a week together. She is focusing on protein with each meal and has an occasional starch once a day. She is avoiding all sugar sweetened beverages. She is eating every 3 hours. Diet Recall: Breakfast Snack Lunch Snack Dinner Snack Half wheat muffin with peanut butter Yogurt Salad with chicken Celery and peanut butter Chicken andgreen beans Beverage Intake: Water, tea, Gatorade zero, [...] 1-2 bariatric vitamins (depending on brand) 2) 7363-6710 mg calcium in divided doses (2x/day) for sleeve and gastric bypass, 1723-2118 mg in divided doses (3x/day) for SADS [...] 1520 End time: 1540 documented in this encounterBarberton [facility] Hospital PubNative [id number] Instructions* Patient Instructions* AMANDA Kaur - 03/28/2024 3:30 PM EST If you re looking for general health and wellness resources, please visit [email or web address]. Read the [facility] Bariatric Guide. documented in this encounterCincinnati Shriners Hospital01-17-2025 History of Present illness Narrative* AMANDA Kaur - 02/26/2024 12:00 PM EST Bariatric Medical Nutrition Therapy Nutritional Assessment/Education Session #: 3 Video Visit via Real-time Synchronous Audiovisual Provider Location: [facility] [address] [place] [phone] Patient Location: Patient's home Video Visit Consent Statement: I discussed risks, benefits, and alternatives of a real-time synchronous audiovisual consultation with the patient (and any accompanying persons) including the risks that the patient's personal health details and medical records will be discussed over real-time, synchronous, interactive video/audio/telecommunication technology, the visit will not be recorded withoutthe express consent of both the provider and the patient, and that there are some limitations compared to nntf-my-ussp evaluations. The patient consented to the presence of additional virtual and/or in-person participants. We elected to proceed. Sierra Lo is a 43 y.o. female who presents for follow up medical nutritional therapy for weight loss surgery. Weight Change 02/26/2024 Weight: 115.7 kg (255 lb) Weight Change: down 5 pounds in one month Sierra is doing well with her nutrition goals [...] Dinner Snack Scrambled eggs with half wheat greek muffin Yogurt (one fit) Chicken caesar salad with low fat dressing Taco (corn tortilla) with hamburger, lettuce, and cheese Yogurt Beverage Intake: Gatorlyte (with being sick), water, ice tea, and one coffee with fat free creamer Physical Activity: Going to the [facility] 3 times a week (walking on treadmill [...] loss surgery to promote healing and prevent protein- malnutrition. Discussed protein shake guidelines. Written information on all discussed has been provided within the [facility] Bariatric Guide. My contact name and number provided if questions or concerns arise. Nutrition Monitoring: To follow up in 1 month to show progress towards goals. Start time: 1157 End time: 1222 documented in this encounterCincinnati Shriners Hospital01-17-2025 Instructions* Patient Instructions* AMANDA Kaur - 02/26/2024 12:00 PM EST If you re looking for general health and wellness resources, please visit [email or web address]. Read the [facility] Bariatric Guide. documented in this encounterCincinnati Shrin[facility] Hospital12-02-2024 History of Present illness Narrative* AMANDA Kaur - 01/11/2024 12:00 PM EST Bariatric Medical Nutrition Therapy Nutritional Assessment/Education Session #: 2 Video Visit via Real-time Synchronous Audiovisual Provider Location: [facility] [address] [place] [phone] Patient Location: Patient's home Video Visit Consent Statement: I discussed risks, benefits, and alternatives of a real-time synchronous audiovisual consultation with the patient (and any accompanying persons) including the risks that the patient's personal health details and medical records will be discussed over real-time, synchronous, interactive video/audio/telecommunication technology, the visit will not be recorded withoutthe express consent of both the provider and the patient, and that there are some limitations compared to faop-ug-ofzs evaluations. The patient consented to the presence of additional virtual and/or in-person participants. We elected to proceed. Sierra Lo is a 43 y.o. female who presents for follow up medical nutritional therapy for weight loss surgery. Weight Change 01/11/2024 Weight: 115.7 kg (255 lb) Weight Change: up 3 pounds in one month Sierra is doing well with working on her goals this month. Despite having leg pain she is walkingseveral times a day and occasionally going to the gym. She is eating 4-5 meals a day focusing on protein rich foods. Discussed limiting starches in her diet. She is not drinking any sugar sweetened beverages and is drinking at least 64 oz of fluids. Diet Recall: Breakfast Snack Lunch Snack Dinner Snack Breakfast pizza (white gravy, scrambled eggs, sausage, and cheese) Low-fat turkmen yogurt Tomato soupand grilled cheese Salad with chicken Beverage Intake: [...] all discussed has been provided within the [facility] Bariatric Guide. My contact name and number provided if questions or concerns arise. Nutrition Monitoring: To follow up in 1 month to show progress towards goals. Start time: 1158 End time: 1222 documented in this encounterCincinnati Shriners Hospital12-02-2024 Instructions* Patient Instructions* AMANDA Kaur - 01/11/2024 12:00 PM EST If you re looking for general health and wellness resources, please visit [email or web address]. Read the [facility] Bariatric Guide. documented in this encounterCincinnati Shriners Hospital11-01-2024 History of Present illness Narrative* AMANDA Kaur - 12/11/2023 9:00 AM EDT Bariatric Medical Nutrition Therapy Nutritional Assessment/Education Initial Nutrition Education Video Visit via Real-time Synchronous Audiovisual Provider Location: [facility] [address] [place] [phone] Patient Location: Patient's home Video Visit Consent Statement: I discussed risks, benefits, and alternatives of a real-time synchronous audiovisual consultation with the patient (and any accompanying persons) including the risks that the patient's personal health details and medical records will be discussed over real-time, synchronous, interactive video/audio/telecommunication technology, the visit will not be recorded withoutthe express consent of both the provider and the patient, and that there are some limitations compared to ahgu-lr-gyip evaluations. The patient consented to the presence of additional virtual and/or in-person participants. We elected to proceed. Sierra Lo is a 43 y.o. female who [...] pounds. Lowest adult weight was 192 pounds. Sierra Lo wants to weigh 180 pounds. There is a maternal and paternal family history for obesity. Previous diet and medication treatments for obesity include: Atkins, 21 day fix (60 pounds in 6 months), and Adipex. Despite these attempts at dieting and exercise, the patient has failed to maintainany sustained weight loss. 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 Start time: 0853 End time: 950 documented in this encounterAvita Health System Ontario HospitalActelis Networks11-01-2024 Instructions* Patient Instructions* AMANDA Kaur - 12/11/2023 9:00 AM EDT If you re looking for general health and wellness resources, please visit [email or web address]. Read the [facility] Bariatric Guide. documented in this encounterBarberton [facility] Hospital PubNative [id number] History of Present illness Narrative* Opal Brown MD - 11/27/2023 9:00 AM EDT [facility] [address] [facility] [phone] [facility] SURGICAL WEIGHT LOSS PROGRAM INITIAL EVALUATION Patient: Sierra Lo Service Date: 11/27/2023 HPI: The patient [...] that surgery is the last resort for weightloss. Patient also understands the importance of vitamins [...] who stands Height: 172.2 cm (5' 7.8 )tall with a weight of Weight: 116.2 kg [...] weight through diet and exercise and stopped theprogram. Her twin sister had gastric bypass surgery and on of her parents recently had it. We discussed options, and the patient feels the sleeve gastrectomy would be the best fit for her. She currently takes Mobic for arthritis pain. She is also currently smoker trying to quit. She understands shewill need to quit completely prior to surgery. [...] Performed by Aries Haro Jr., DO at [facility] EXPRESS ARTHROSCOPY REPAIR ROTATOR CUFF SHOULDER [id number], SUBACROMIAL DECOMPRESSION 22155/extensive debridement Right 05/29/2021 Performed by Luigi Vargas MD at 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 [x] No [] Yes Do you have [...] turgor normal, no rashes or lesions Neurologic: merchandise carrier intact, normal strength. Alert and oriented. Follows commands and moves all 4. BP (!) 142/91 Pulse 84 Ht 172.2 cm (5' 7.8 ) Wt 116.2 kg (256 lb 3.2 oz) BMI 39.19 kg/m Physical Exam RECOMMENDATIONS: We spent a great deal of time discussing the risks and benefits of Robotic Laparoscopic or Open Sleeve Gastrectomy, and we discussed the need for post- operative visit compliance, behavior modifications and diet changes, protein and vitamin supplementation, as well as routine scheduled and dedicatedexercise. We discussed the potential weight loss benefit of approximately 60-70% of her excess bodyweight at 12-18 months post-op, as well as [...] PAT appointment Labwork: Final Lab Tests at [facility] appointment Please note that this chart was generated using voice recognition [facility] dictation software. Although every effort was made to ensure the accuracy of this automated sack sewer, some errors in sack sewer may have occurred. documented in this encounterCincinnati Shriners Hospital07-25-2024 Evaluation note* Diagnosis Obesity, Class III, BMI 40-49.9 (morbid obesity) (CMS-HCC)- Primary Unable to assess patient's smoking status within the last 12 months documented in this encounter [facility]09[facility] Hospital Discharge instructions* Discharge Instructions* Tyler Galarza PA-C - 10/27/2022 7:59 PM EDT Follow-up with primary care doctor 7 to 10 days for reevaluation. Continue home medications as prescribed. Take Tylenol or Motrin as directed for discomfort. Continue to drink plenty of fluids as tolerated. Promptly return to emergency department for new, changing, worsening symptoms or other concerns. * Attachments The following attachments cannot be sent through Care Everywhere. * Flank Pain (South Sudanese) documented in this encounterBON [facility]OURS ST. MARY'S HOSPITALEvalubayhealth [facility] [place] note* Diagnosis Left flank pain- Primary Abdominal pain, unspecified site documented in this encounter [facility] note* Diagnosis Morbid obesity ([facility]-HCC)- Primary Morbid obesity Pre-bariatric surgery nutrition evaluation Obesity, Class II, BMI 35-39.9 documented in this encounter [facility]* Diagnosis Obesity, Class II, BMI 35-39.9- Primary Gastroesophageal reflux disease, unspecified whether esophagitis present documented in this encounter [facility]* Diagnosis Morbid obesity (CMS-HCC)- Primary Morbid obesity Pre-bariatric surgery nutrition evaluation Obesity, Class II, BMI 35-39.9 documented in this encounter [facility]* Diagnosis Morbid obesity ([facility]-HCC)- Primary Morbid obesity Pre-bariatric surgery nutrition evaluation documented in this encounter [facility]* Diagnosis Morbid obesity (CMS-HCC)- Primary Morbid obesity Pre-bariatric surgery nutrition evaluation documented in this encounter [facility]* Diagnosis Hydroureteronephrosis- Primary Hydronephrosis Right flank pain Abdominal pain, unspecified site documented [facility] this encounter [email or web address] PubNativeEvaluation note* Diagnosis Acute bronchitis, unspecified organism documented in this encounter [facility] [place] [facility]* Diagnosis Preop testing- Primary Unspecified pre-operative examination Morbid obesity ([facility]-HCC) Morbid obesity documented in this encounter [facility]* Diagnosis Obesity, Class III, BMI 40-49.9 (morbid obesity) ([facility])- Primary Hypertension, unspecified type Gastroesophageal reflux disease, unspecified whether esophagitis present Osteoarthritis, unspecified osteoarthritis type, unspecified site Back pain, unspecified back location, unspecified back pain laterality, unspecified chronicity Knee pain, unspecified chronicity, unspecified laterality Edema, unspecified type documented [facility] this encounter [facility]* Diagnosis Obesity, Class II, BMI 35-39.9- Primary History of sleeve gastrectomy documented in this encounter [facility]* Diagnosis Morbid obesity ([facility])- Primary Morbid obesity History of sleeve gastrectomy Malnutrition following gastrointestinal surgery Other and unspecified postsurgical nonabsorption Postsurgical malabsorption Dietary counseling and surveillance documented in this encounter [facility]* Diagnosis History of sleeve gastrectomy- Primary Malnutrition following gastrointestinal surgery Other and unspecified postsurgical nonabsorption Postsurgical malabsorption Constipation, unspecified constipation type documented in this encounter [facility] Dis[facility] instructions* Attachments The following attachments cannot be sent through Care Everywhere. * Hydronephrosis: General Info (South Sudanese) * Hydronephrosis: Fast Facts: Video ([place] Sudanese) * Flank Pain ([place] Sudanese) documented in this encounterStafford HospitalInstructionsNot on file documented in this encounterSelect [facility] SystemInstructionsNot on file documented in this encounterCincinnati Shriners HospitalInstructionsNot on file documented in this encounterSelect [facility] SystemInstructionsNot on file documented in this encounterCincinnati [facility]rin[facility] Summary Purpose Family History No Family [...] section and content) DATE CREATED AUTHOR 08/22/2017 [facility] DATE CREATED AUTHOR AUTHOR'S ORGANIZ ATION 04/28/2022 [facility] DATE CREATED AUTHOR AUTHOR'S ORGANIZ ATION 06/01/2024 [facility] DATE CREATED AUTHOR AUTHOR'S ORGANIZ ATION 08/14/2024 [facility] DATE CREATED AUTHOR AUTHOR'S ORGANIZ ATION 10/29/2024 [facility] DATE CREATED AUTHOR AUTHOR'S ORGANIZ ATION 10/29/2024 [facility] DATE CREATED AUTHOR AUTHOR'S ORGANIZ ATION 11/16/2024 [facility] Reason for Visit (unrecogniz ed section and content) ReasonCommentsFlank PainLeft flank pain ongoing for the past few days. on 4th day of macrobid, completed 2 other courses ofantibiotics for ongoing UTI for 3 weeks.ReasonCommentsNutrition CounselingSpecialtyDiagnoses / ProceduresReferred By ContactReferred To ContactNutrition Diagnoses Obesity, Class II, BMI 35-39.9 Opal Brown MD [address] [place] [address] Phone: tel: fax: Referral IDStatusReasonStart DateExpiration DateVisits RequestedVisits [id number] Review Specialty Services Required [id number] PatientReasonCommentsFlank PainRight side radiating to front, onset 3 days agoReasonCommentsFollow-upSIGN CONSENT ReasonCommentsPatient EducationPreoperative Bariatric Surgery Educational Class ReasonCommentsPOST-OP VISIT1 week out from sleeve surgery 10/20/24ReasonOnset DateCommentsPost-op Hccpist0411/13/2024 Scheduled Active and Recently Administ ered Medications (unrecognized section and content) Medication Order/ ketorolac (TORADOL) injection 15 mg (COMPLETED) 15 mg, IntraVENous, ONCE, 1 dose, On Thu10/27/22 at 1900, Do not administer for more than 5 days. * 1901 (Given - Provider: Karen Nuno RN) ondansetron (ZOFRAN) injection 4 mg (COMPLETED) 4 mg, IntraVENous, ONCE, 1 dose, On Thu10/27/22 at 1745 * 1759 (Given - Provider: Karen Nuno RN) sodium chloride 0.9 % bolus 1,000 mL (COMPLETED) 1,000 mL (9.59 mL/kg), IntraVENous, at 495.9 mL/hr, Administer over 121 Minutes, ONCE, On Thu10/27/22 at 1745, For 1 dose, For adult patients weighing > 55 kg (120 lbs.) and less than <50 yearsof age initiate 0.9NS at 500 mL/ hr. All bolus orders are to be given over 10 to 15 minutes * 1758 (New Bag - Provider: Karen Nuno, ARTEM) * 2002 (Stopped - Provider: Karen Nuno RN) Medication Order// iopamidol (ISOVUE-370) 76 % injection 75 mL (COMPLETED) 75 mL, IntraVENous, IMG ONCE PRN, 1 dose, Starting on Thu10/27/22 at 1746, Until Thu10/27/22 at 1749, Other * 1749 (Given - Provider: Rima Gleason) Medication Order// ketorolac (TORADOL) injection 15 mg (COMPLETED) 15 mg, IntraVENous, ONCE, 1 dose, On Thu07/17/24 at 0800, Do not administer for more than 5 days. * 0814 (Given - Provider: Coni Philippe, ARTEM) ondansetron (ZOFRAN) injection 4 mg (COMPLETED) 4 mg, IntraVENous, ONCE, 1 dose, On Thu07/17/24 at 0800 * 0813 (Given - Provider: Coni Philippe, ARTEM) sodium chloride 0.9 % bolus 1,000 mL (COMPLETED) 1,000 mL, IntraVENous, at 1,935.5 mL/hr, Administer over 31 Minutes, ONCE, On Thu07/17/24 at 0800, For 1 dose * 0816 (New Bag - Provider: Coni Philippe, ARTEM) * 0911 (Stopped - Provider: Coni Philippe, ARTEM) Medication Order// iopamidol (ISOVUE-370) 76 % injection 75 mL (COMPLETED) 75 mL, IntraVENous, IMG ONCE PRN, 1 dose, Starting on Thu07/17/24 at 0752, Until Thu07/17/24 at 0822,Other * 0822 (Given - Provider: Libertad Lubin) Care Teams (unrecognized sec tion and content) Team MemberRelationshipSpecialtyStart DateEnd Date Francia Rodriguez MD PCP - General04/30/17Team MemberRelationshipSpecialtyStart DateEnd Date Francia Rodriguez MD PCP - General04/30/17Team MemberRelationshipSpecialtyStart DateEnd Date Francia Rodriguez MD PCP - General04/30/17Team MemberRelationshipSpecialtyStart DateEnd Date Francia Rodriguez MD PCP - General04/30/17Team MemberRelationshipSpecialtyStart DateEnd Date Francia Rodriguez MD [address] [place] [address] PCP - GeneralFamily Medicine08/05/23Team MemberRelationshipSpecialtyStart DateEnd Date Francia Rodriguez MD [address] [place] [address] PCP - GeneralFamily Medicine08/05/23Team MemberRelationshipSpecialtyStart DateEnd Date Francia Rodriguez MD [address] [place] [address] PCP - GeneralFamily Medicine08/05/23Team MemberRelationshipSpecialtyStart DateEnd Date Francia Rodriguez MD [address] [place] [address] PCP - GeneralFamily Medicine08/05/23Te MemberRelationshipSpecialtyStart DateEnd Date Francia Rodriguez MD [facility]04/30/17Te MemberRelationshipSpecialtyStart DateEnd Date Francia Rodriguez MD [facility]04/30/17Te MemberRelationshipSpecialtyStart DateEnd Date Francia Rodriguez MD [facility]04/30/17Te MemberRelationshipSpecialtyStart DateEnd Date Francia Rodriguez MD [facility]04/30/17[facility] MemberRelationshipSpecialtyStart DateEnd Date Francia Rodriguez MD [facility]04/30/17[facility] MemberRelationshipSpecialtyStart DateEnd Francia Rodriguez MD [facility]04/30/17 Ordered Prescriptions (unrec ognized section and content) PrescriptionSigDispense QuantityRefillsLast FilledStart End naproxen (NAPROSYN) 500 MG tablet Take 1 tablet by mouth 2 times daily as needed for Pain 20 tablet ondansetron (ZOFRAN) 4 MG tablet Take 1 [...] BE BASED ON THE PRIMARY CLINICAL RECORDS. [facility]. provides no warranty or guarantee of the accuracy or completeness of information in this document.
[2025-01-02 12:06] LABS: Hematocrit 45.3 % (36.0-48.0); Hemoglobin 15.1 g/dL (12.0-16.0); Immature Granulocytes Abs Auto 0.03 10^3/uL (0.00-0.03); Immature Granulocytes Pct Auto 0.3 % (0.0-0.5); Lymphocytes Absolute Auto 2.7 10^3/uL (1.2-3.8); Mean Corpuscular HGB Conc 33.3 g/dL (29.9-35.2); Mean Corpuscular Hemoglobin 31.4 pg (26.7-34.0); Mean Corpuscular Volume 94.2 fL (81.0-99.0); Platelet Count 319 10^3/uL (150-450); Red Blood Count 4.81 10^6/uL (4.20-5.40); White Blood Count 9.7 10^3/uL (4.0-11.0)
[2025-01-02 12:21] LABS: Alanine Aminotransferase 28 U/L (14-59); Albumin Globulin Ratio 0.8; Albumin Level 3.7 g/dL (3.4-5.0); Alkaline Phosphatase 89 U/L (46-116); Anion Gap 10.7; Aspartate Amino Transferase 14 U/L (15-37); Blood Urea Nitrogen 7.0 mg/dL (7.0-18.0); Calcium 9.3 mg/dL (8.5-10.1); Carbon Dioxide 27.8 mmol/L (21.0-32.0); Chloride 102 mmol/L (98-107); Estimated GFR (African America >60 (>=60 mL/min/1.73m^2); Estimated GFR (Non-African Ame >60 (>=60 mL/min/1.73m^2); Free T3 2.41 pg/mL (2.18-3.98); Globulin 4.5 g/dL; Glucose 98 mg/dL (74-106); NT Pro B Type Natriuretic Pept 26.0 pg/mL (<=450.0); Potassium 4.5 mmol/L (3.5-5.1); Sodium 136 mmol/L (136-145); Thyroid Stimulating Hormone 1.335 uIU/mL (0.358-3.740); Total Protein 8.2 g/dL (6.4-8.2)
[2025-01-02 12:38] LABS: Iron 63.0 ug/dL (50.0-170.0)
== END 2025-01-02 11:25 | disposition home or self-care (01) ==
PROVIDERS: PCP Family Medicine; Visit Provider Family Medicine
DX: L03.90 Cellulitis, unspecified (principal)
CPT/HCPCS: 36415; 80053; 83036; 83540; 83880; 84436; 84443; 84481; 85025; 85652; 86140